=== PATIENT | male | born 1975 | race Caucasian/White ===

== ENCOUNTER 2023-07-03 17:49 | Emergency (ER) | payer OTHER, SELFPAY ==
--- OUTSIDE RECORDS SUMMARY | 2023-07-03 18:00 | XMS_ITS | CCD ---
Author Name Unknown Address [address] [place] [address] Organization [facility] Care Team Providers Care Storage Management Consultant Name Role Phone Gabe Rebolledoa F Unavailable Unavailable Amaury Maddy F Unavailable Unavailable MILLER BUNN~[phone] UNKNOWN Unavailable U navailable Miller Bazan Unavailable Unavailable MILLER BUNN~[phone] UNKNOWN Unavailable U navailable MISC, DOCTOR Primary Care Unavailable JHON LIND Admitting Unavailable JHON LIND Attending Unavailable MILLER BUNN Consulting Unavailable HOLLI BIANCHI V Consulting Unavailable SUNI DUENAS Consulting Unavailable MISC, DOCTOR Primary Care Unavailable ALEXX KAY Admitting Unavailable ALEXX KAY Attending Unavailable JANY NOBLES Consulting Unavailable ALEXX KAY Consulting Unavailable MONSTER ANGEL Consulting Unavailable Miller Bunn Primary Care Provider UnavailUmang Gunn Attending Provider Unavailable Misbah Donahue Primary Care Provider UnavailPaulie Casarez Unavailable Sam Sheriff Unavailable Wallace Corbin DO Primary Care Provider DO Paulie Boo Primary Care Provider DO Paulie Boo Attending Provider DO Wallace Corbin Primary Care Provider NICOLE Schulte- Rody Hinkle Emergency Provider Wallace Corbin DO Primary Care Provider Azul Langford Unavailable Wallace Corbin Unavailable Unavailable Tyler Martinez Unavailable Unavailable Martinez, DO Tyler Attending Unavailable Luana, DO Wallace N Primary Care Provider MD Sam Mccoy Jr Emergency Provider Safmyronarin MENTAL HEALTH NURSE PRACTITIONERNara Bains Emergency Provider Luana DO, Wallace Primary Care Provider [phone] Luana, DO Wallace N Primary Care Provider MD Sam Mccoy Jr Emergency Provider Sam Mccoy Jr Admitting Unavailable Sam Mccoy Jr Attending Unavailable Luana, Wallace N Primary Care Unavailable Sam Mccoy Jr Admitting Unavailable Sam Mccoy Jr Attending Unavailable Luana, Wallace N Primary Care Unavailable Ana Maria Loera Admitting Unavailable SafmyroneAna Maria Attending Unavailable Luana, Wallace N Primary Care Unavailable LUANA, WALLACE Primary Care Unavailable FARA LÓPEZ Consulting Unavailable YAMILEX ADKINS Attending Unavailable YAMILEX ADKINS Admitting Unavailable LÓPEZ CHRISTNERY Sales Admitting Unavailable LÓPEZ, FARA A Attending Unavailable LUANA, WALLACE Primary Care Unavailable LÓPEZ, CHRISTOPHER A Admitting Unavailable LÓPEZ, CHRISTSYBILER A Attending Unavailable LUANA, WALLACE Primary Care Unavailable LÓPEZ, CHRISTNERY A Attending Unavailable LÓPEZ, CHRISTOPHER A Referring Unavailable LUANA, WALLACE Primary Care Unavailable GIORGIOETIMADDISON Referring Unavailable LUANA, WALLACE Primary Care Unavailable MADDISON VELEZ Referring Unavailable LUANA, WALLACE Primary Care Unavailable KARETIMADDISON Referring Unavailable LUANA, WALLACE Primary Care Unavailable LUANA, WALLACE Primary Care Unavailable LAURA COOK Attending Unavailable IRENA MILIAN Attending Unavailable LUANA, WALLACE Primary Care Unavailable IRENA MILIAN Attending Unavailable LUANA, WALLACE Primary Care Unavailable Unavailable Unavailable Unavailable Allergies Allergy Classification Reported Allergen(s) Allergy Type Date of Onset Reaction(s) Facility (14 sources) HYDROmorphone; Translations: [hydromorphone] Drug Allergy Headache [facility] (1 source) Morphine Drug Allergy 01-31-2023 [facility] Repository Medications Current Medications Medication Drug Class(es) Dates Sig (Normalized) Sig (Original) acetaminophen 325 mg / oxyCODONE hydrochloride 5 mg oral tablet (20 sources) Opioid Agonist Start: 02-01-2023 take 1 tablet by mouth every six hours Oxycodone-Acetami nophen (Percocet) 5-325 mg tablet Active 1 - 2 TAB PO Every 6 hours 15 February 01, 2023 Start: 11-02-2022 End: 02-01-2023 take 1 tablet by mouth three times daily Oxycodone-Acetaminophen (Percocet) 5-325 mg tablet Discontinued 1 TAB PO Three times daily 6 November 02, 2022 February 01, 2023 4:11am Start: 07-04-2021 End: 02-01-2023 oxyCODONE-acetaminophen (PER COCET) 5-325 MG per tablet Indications: Left ureteral stone Take 1 tablet by mouth every 6 hours as needed for Pain for up to 3 days. Intended supply: 3 days. Take lowest dose possible to manage pain Max Daily Amount: 4 tablets 12 tablet 0 11/06/2022 11/09/2022 Suspended Start: 04-18-2021 take 1 tablet by julio th every four hours as needed for pain Percocet 5-325 MG 1 tablet as needed for pain Orally up to every 4 hrs for 5 days Mar, Active Start: 03-28-2020 End: 07-04-2021 take 2 tablets by mouth every four to six hours Oxycodone-Acetaminophen (Percocet) 5-325 mg tablet Discontinued 2 TAB PO EVERY 4-6 HOURS 17 07March 28, 2020 July 04, 2021 2:58am Start: 12-31-2018 End: 05-20-2019 take 1 tablet by mouth twice daily Oxycodone-Acetaminophen (Percocet) 5-325 mg Tablet Discontinued 1 TAB PO Twice daily December 31, 2018 12:00am May 20, 2019 2:48pm [id number] 200 actuat albuterol 0.09 mg/actuat metered dose inhaler (5 sources) beta2-Adrenergic Agonist Start: 03-27-2022 take 2 puff(s) by inhalation four times daily as needed Albuterol Sulfate HFA 108 (90 Base) MCG/ACT 2 puffs Inhalation 4 times a day prn Feb, Active Start: 01-14-2019 End: 05-21-2019 take 1 puff(s) by inhalation every four hours Albuterol Sulfate (Proair Hfa) 90 mcg/actuation Hfa Aerosol Inhaler Discontinued 2 PUFF INHALATION Q4H January 14, 2019 12:00am May 21, 2019 11:58am amoxicillin 500 mg oral capsule (1 source) Penicillin-class Antibacterial Start: 03-27-2022 take 1 capsule by mouth every eight hours Amoxicillin 500 MG 1 capsule Orally three times a day for 10 day(s) Feb, Active calcium chloride 0.0014 meq/ml / potassium chloride 0.004 meq/ml / sodium chloride 0.103 meq/ml / sodium lactate 0.028 meq/ml injectable solution (1 source) Start: 11-09-2022 IntraVENous, at 125 mL/hr, CONTINUOUS, Starting on Bridget 11/09/22 at 1445, PACU only cephalexin 500 mg oral capsule (6 sources) Cephalosporin Antibacterial Start: 12-29-2021 cephALEXin (KEFLEX) 500 MG capsule Start: 12-29-2021 End: 10-30-2022 take 500 mg by mouth four times daily Cephalexin Discontinued 500 MG PO Four times daily 24 11December 29, 2021 12:00am October 30, 2022 5:38am Start: 04-18-2021 take [address] [facility] every eight hours Cephalexin 500 MG 1 capsule Orally every 8 hrs for 2 days Mar, Active cyclobenzaprine hydrochloride 5 mg oral tablet (9 sources) Muscle Relaxant Start: 02-01-2023 take 5 mg by mouth three times daily Cyclobenzaprine Active 5 MG PO Three times daily February 01, 2023 12:00am Start: 09-14-2018 End: 11-22-2018 take 10 mg by mouth three times daily Cyclobenzaprine Discontinued 10 MG PO Three times daily September 14, 2018 12:00am November 22, 2018 11:08pm Start: 04-19-2017 End: 05-14-2018 Cyclobenzaprine Discontinued 10 MG PO every 6 to 8 hours April 19, 2017 1:00am May 14, 2018 1:02pm 1 ml diphenhydrAMINE hydrochloride 50 mg/ml cartridge (1 source) Histamine-1 Receptor Antagonist Start: 11-09-2022 End: 11-10-2022 12.5 mg, IntraVENous, ONCE PRN, 1 dose, Starting on Bridget 11/09/22 at 1425, Until Sun11/10/22 at 1425, Itching, PACU only 2 ml droperidol 2.5 mg/ml injection (1 source) Dopamine-2 Receptor Antagonist Start: 11-09-2022 End: 11-10-2022 0.625 mg, IntraVENous, ONCE PRN, 1 dose, Starting on Bridget 11/09/22 at 1425, Until Sun11/10/22 at 1425, Nausea Secondary antiemetic therapy. PACU only DULoxetine 30 mg delayed release oral capsule (15 sources) Serotonin and Norepinephrine Reuptake Inhibitor Start: 12-31-2018 take 60 mg by mouth once daily Duloxetine Active 60 MG Oral Daily December 31, 2018 10:21am Start: 12-31-2018 End: 12-21-2019 take 2 capsules by mouth once daily Duloxetine (Cymbalta) 30 mg Capsule,Delayed Release(Dr/Ec) Discontinued 60 MG PO Daily December 31, 2018 12:00am December 21, 2019 9:42am Start: 07-31-2018 End: 11-22-2018 take 30 mg by mouth once daily Duloxetine Discontinued 30 MG PO Daily July 31, 2018 12:00am November 22, 2018 11:08pm Start: 05-14-2018 End: 07-31-2018 take 60 mg by mouth once daily Duloxetine Discontinued 60 MG PO Daily May 14, 2018 1:00am July 31, 2018 10:15am escitalopram 10 mg oral tablet (1 source) Serotonin Reuptake Inhibitor Start: 09-07-2021 take 1 tablet by mouth every twenty-four hours Escitalopram Oxalate 10 MG 1 tablet Orally Once a day for 30 day(s) August, Active ibuprofen 600 mg oral tablet (20 sources) Nonsteroidal Anti-inflammatory Drug Start: 10-30-2022 End: 02-01-2023 take 600 mg by mouth every eight hours Ibuprofen Active 600 MG PO Q8H February 01, 2023 12:00am Start: 12-29-2021 End: 10-30-2022 take 800 mg by mouth every eight hours Ibuprofen Discontinued 800 MG PO Q8H December 29, 2021 9:03am October 30, 2022 5:38am Start: 07-04-2021 End: 12-29-2021 take 600 mg by mouth every eight hours Ibuprofen Discontinued 600 MG PO Q8H July 04, 2021 1:00am December 29, 2021 9:03am take 1 tablet by julio three times daily at mealtime as needed Ibuprofen 200 MG 1 tablet with food or milk as needed Orally Three times a day Active lidocaine hydrochloride 0.02 mg/mg topical gel (5 sources) Antiarrhythmic, Amide Local Anesthetic Start: 11-09-2022 lidocaine (XYLOCAINE) 2 % uro-jet Start: 09-14-2018 End: 11-22-2018 apply 1 dose topically once daily Lidocaine (Lidoderm) 5 % adhesive patch,medicated Discontinued 1 PATCH TOPICAL Daily September 14, 2018 12:00am November 22, 2018 11:08pm leave on most painful area for 12 hrs oxyCODONE hydrochloride 5 mg oral capsule (20 sources) Opioid Agonist Start: 11-09-2022 End: 11-09-2022 oxyCODONE capsule 5 mg Start: 07-31-2018 End: 12-31-2018 take 5 mg by mouth twice daily Oxycodone Discontinued 5 MG PO Twice daily July 31, 2018 12:00am December 31, 2018 10:22am Start: 05-17-2018 End: 05-24-2018 take 5 mg by mouth every four hours Oxycodone Discontinued 5 MG PO Q4H 21 11May 17, 2018 May 24, 2018 1:02am Start: 03-13-2017 End: 07-31-2018 take 15 mg by mouth once daily Oxycodone Discontinued 15 MG PO Daily March 13, 2017 1:00am July 31, 2018 10:15am take 1 tablet by [facility] every six hours oxyCODONE HCl 5 MG 1 tablet as needed Orally every 6 hrs Active phenazopyridine hydrochlorid e 200 mg delayed release oral tablet (9 sources) Start: 12-29-2021 phenazopyridin e (PYRIDIUM) 200 MG tablet Start: 12-29-2021 End: 10-30-2022 take 200 mg by mouth three times daily at mealtime Phenazopyridine Discontinued 200 MG PO Three times daily 01 30December 29, 2021 12:00am October 30, 2022 5:38am administer with a full glass of water after each meal Start: 05-17-2018 End: 05-19-2018 take 1 tablet by mouth every four hours for muscle spasms Phenazopyridine (Pyridium) 100 mg tablet Discontinued 100 MG PO Q8H 7 2 May 17, 2018 1:00am May 19, 2018 1:02am Use for bladder spasms after meals times 2 days. May cause discoloration of your urine to reddish orange predniSONE 20 mg oral tablet (5 sources) Start: 03-27-2022 take 1 tablet by mouth every twelve hours predniSONE 20 MG 1 tablet Orally 2 times a day for 5 day(s) Feb, Active Start: 04-19-2017 End: 04-24-2017 take 60 mg by mouth once daily at mealtime Prednisone Discontinued 60 MG PO Daily 15 April 19, 2017 1:00am April 24, 2017 1:03am administer with food or milk 2 ml prochlorperazine 5 mg/ml injection (1 source) Phenothiazine Start: 11-09-2022 End: 11-10-2022 5 mg, IntraVENous, ONCE PRN, 1 dose, Starting on Bridget 11/09/22 at 1425, Until Sun11/10/22 at 1425, Nausea Initial antiemetic therapy. PACU only 5 ml sodium chloride 9 mg/ml injection (15 sources) Start: 11-09-2022 take 1 dose intravenously twice daily 5-40 mL, IntraVENous, EVERY 12 HOURS SCHEDULED (2 times per day), First dose on Bridget 11/09/22 at 2100, Until Discontinued For Line Patency: Peripheral IV = 5 mL; Midline or Central Line = 10 mL/lumen.&nbs p; If following IV push medication, administer flush at same rate as the IV push. Flush volume is determined by type of infusion therapy being given. &nbsp ;For non-viscous solutions use: Periphe ral IV = 5 mL Midline or Central Line = 10 mL/lumen &nb sp;For viscous solutions (i.e. blood components, parenteral nutrition, contrast media, or after obtaining blood sample) use: Periphe ral IV = 10 mL Midline or Central Line = 20 mL/lumen PACU only Start: 11-09-2022 take 1 dose intraven ously twice daily 5-40 mL, IntraVENous, EVERY 12 HOURS SCHEDULED (2 times per day), First dose on Bridget 11/09/22 at 2100, Until Discontinued For Line Patency: Peripheral IV = 5 mL; Midline or Central Line = 10 mL/lumen. If following IV push medication, administer flush at same rate as the IV push. Flush volume is determined by type of infusion therapy being given. For non-viscous solutions use: Peripheral IV = 5 mL Midline or Central Line = 10 mL/lumen For viscous solutions (i.e. blood components, parenteral nutrition, contrast media, or after obtaining blood sample) use: Peripheral IV = 10 mL Midline or Central Line = 20 mL/lumen Post-op Start: 11-09-2022 sodium chlorid e flush 0.9 % injection 5-40 mL Start: 11-09-2022 IntraVENous, a t 5-250 mL/hr, PRN, if patient receiving piggyback infusions and maintenance fluids are not ordered OR KVO fluids to protect IV site / prevent frequent line interruptions/ long duration, Starting on Bridget 11/09/22 at 1426 For piggyback infusion, administer at same rate as piggyback for a total of 25 mL. Enter 25 mL into dose field and piggyback rate into rate field of order. If piggyback is infusing at a rate less than 100 mL/hr, enter 25 mL into dose field and 100 mL/hr into rate field of order. For KVO fluids, enter rate of 20 mL/hr or less into rate field of order. Post-op Start: 11-09-2022 take 5-40 mL intrave nously once as needed 5-40 mL, IntraVENous, PRN, Starting on Bridget 11/09/22 at 1426, Until Discontinued, Line Care, After every IV line use For Line Patency: Peripheral IV = 5 mL; Midline or Central Line = 10 mL/lumen. If following IV push medication, administer flush at same rate as the IV push. Flush volume is determined by type of infusion therapy being given. For non-viscous solutions use: Peripheral IV = 5 mL Midline or Central Line = 10 mL/lumen For viscous solutions (i.e. blood components, parenteral nutrition, contrast media, or after obtaining blood sample) use: Peripheral IV = 10 mL Midline or Central Line = 20 mL/lumen Post-op Start: 11-09-2022 0.9 % sodium c hloride infusion Start: 11-09-2022 sodium chlorid e flush 0.9 % injection 5-40 mL Start: 02-01-2022 take 1 dose intraven ously twice daily 5-40 mL, IntraVENous, EVERY 12 HOURS SCHEDULED (2 times per day), First dose on Sun02/01/22 at 2100, Until Discontinued For Line Patency: Peripheral IV = 5 mL; Midline or Central Line = 10 mL/lumen. If following IV push medication, administer flush at same rate as the IV push. Flush volume is determined by type of infusion therapy being given. For non-viscous solutions use: Peripheral IV = 5 mL Midline or Central Line = 10 mL/lumen For viscous solutions (i.e. blood components, parenteral nutrition, contrast media, or after obtaining blood sample) use: Peripheral IV = 10 mL Midline or Central Line = 20 mL/lumen PACU only Start: 02-01-2022 IntraVENous, a t 5-250 mL/hr, PRN, if patient receiving piggyback infusions and maintenance fluids are not ordered OR KVO fluids to protect IV site / prevent frequent line interruptions/ long duration, Starting on Sun02/01/22 at 1156 For piggyback infusion, administer at same rate as piggyback for a total of 25 mL. Enter 25 mL into dose field and piggyback rate into rate field of order. If piggyback is infusing at a rate less than 100 mL/hr, enter 25 mL into dose field and 100 mL/hr into rate field of order. For KVO fluids, enter rate of 20 mL/hr or less into rate field of order. PACU only Start: 02-01-2022 take 5-40 mL intrave nously once as needed 5-40 mL, IntraVENous, PRN, Starting on Sun02/01/22 at 1156, Until Discontinued, Line Care, After every IV line use For Line Patency: Peripheral IV = 5 mL; Midline or Central Line = 10 mL/lumen. If following IV push medication, administer flush at same rate as the IV push. Flush volume is determined by type of infusion therapy being given. For non-viscous solutions use: Peripheral IV = 5 mL Midline or Central Line = 10 mL/lumen For viscous solutions (i.e. blood components, parenteral nutrition, contrast media, or after obtaining blood sample) use: Peripheral IV = 10 mL Midline or Central Line = 20 mL/lumen PACU only Start: 02-01-2022 0.9 % sodium c hloride infusion Start: 02-01-2022 End: 02-01-2022 sodium chloride 0.9 % infusi on Start: 12-30-2021 End: 12-30-2021 0.9 % sodium chloride bolus tamsulosin hydrochloride 0.4 mg oral capsule (8 sources) alpha-Adrenergic Mac Start: 10-07-2022 Tamsu losin (Flomax) 0.4 mg capsule Active 0.4 MG PO Daily October 30, 2022 12:00am administer 30 minutes after same meal each day While you have the stent in place to help with pain Start: 07-04-2021 End: 12-29-2021 Tamsulosin (Flomax) 0.4 mg c apsule,extended release 24hr Discontinued 0.4 MG PO Daily July 04, 2021 1:00am December 29, 2021 9:03am administer 30 minutes after same meal each day until stone passes water 1000 mg/ml irrigation solution (1 source) Start: 11-09-2022 sterile water for irrigation Completed/Discontinued Medications Medication Drug Class(es) Dates Sig (Normalized) Sig (Original) acetaminophen 325 mg oral tablet (16 sources) Start: 05-16-2018 End: 07-03-2018 take 650 mg by mouth every six hours Acetaminophen Discontinued 650 MG PO Q6H 0 May 16, 2018 1:00am July 03, 2018 10:31am take 2 tablets by mo uth three times daily as needed for pain acetaminophen (TYLENOL) 500 MG tablet Ta ke 2 tablets by mouth 3 times daily as needed for Pain 0 Suspended take 1 tablet by mouth every fou r hours Tylenol 325 MG 1 tablet as needed Orally every 4 hrs Active 12 hr buPROPion hydrochloride 100 mg extended release oral tablet (12 sources) Aminoketone Start: 03-10-2019 End: 05-20-2019 take 1 tablet by mouth once daily Bupropion Hcl (Wellbutrin Sr) 100 mg Tablet Sustained-Release 12 Hr Discontinued 1 TAB PO Daily March 10, 2019 1:00am May 20, 2019 2:44pm Start: 11-22-2018 End: 12-31-2018 take 200 mg by mouth twice daily Bupropion Hcl Discontinued 200 MG PO Twice daily November 22, 2018 12:00am December 31, 2018 10:22am Start: 03-13-2017 End: 05-14-2018 take 1 tablet by mouth twice daily Bupropion Hcl (Wellbutrin Sr) 150 mg Tablet Extended Release 12 Hr Discontinued 150 MG PO Twice daily March 13, 2017 1:00am May 14, 2018 1:01pm cefdinir 300 mg oral capsule (4 sources) Cephalosporin Antibacterial Start: 05-16-2018 End: 05-21-2018 take 300 mg by mouth twice daily Cefdinir Discontinued 300 MG PO Twice daily 10 May 16, 2018 1:00am May 21, 2018 1:02am dextromethorphan hydrobromide 15 mg / guaiFENesin 400 mg / pseudoephedrine hydrochloride 60 mg oral tablet (4 sources) alpha-Adrenergic Agonist, Uncompetitive N-skvats-Z-asparta te Receptor Antagonist, Sigma-1 Agonist Start: 01-14-2019 End: 05-20-2019 Aotlhkygofcmwrs-Sg-U uaifenesin (Capmist Dm) 60-15-400 mg Tablet Discontinued 1 TAB PO As Directed January 14, 2019 12:00am May 20, 2019 2:48pm diclofenac sodium 75 mg delayed release oral tablet (7 sources) Nonsteroidal Anti-inflammatory Drug Start: 05-20-2019 End: 12-21-2019 take 1 tablet by mouth twice daily Diclofenac Sodium Discontinued 1 TAB PO Twice daily May 20, 2019 1:00am December 21, 2019 9:42am 1 ml fentaNYL 0.05 mg/ml injection (1 source) Opioid Agonist Start: 11-09-2022 50 mcg, IntraVENous, EVERY 5 MIN PRN, 4 doses, Starting on Bridget 11/09/22 at 1425, Until Discontinued, Pain Moderate (4-6) For Phase I. If Phase II oral narcotics have been administered in the last 60 minutes, do not administer IV narcotics unless specifically approved by provider. PACU only FLUoxetine 10 mg oral capsule (4 sources) Serotonin Reuptake Inhibitor Start: 01-14-2019 End: 05-20-2019 take 1 capsule by mouth once daily Fluoxetine Discontinued 1 CAP PO Daily January 14, 2019 12:00am May 20, 2019 2:47pm 1 ml hydrALAZINE hydrochloride 20 mg/ml injection (1 source) Arteriolar Vasodilator Start: 11-09-2022 10 mg, IntraVENous, EVERY 15 MIN PRN, 2 doses, Starting on Bridget 7 at 1425, Until Discontinued, High Blood Pressure, for SBP greater than 180 mmHg for 2 consecutive measurements taken from different sites Inform provider if SBP is still greater than 180 mmHg 10 minutes after second antihypertensive dose is administered. PACU only 0.5 ml HYDROmorphone hydrochloride 1 mg/ml prefilled syringe (2 sources) Opioid Agonist Start: 11-09-2022 0.5 mg, IntraVENous, EVERY 10 MIN PRN, 2 doses, Starting on Bridget 7 at 1425, Until Discontinued, Pain Severe (7-10) For Phase I. If Phase II oral narcotics have been administered in the last 60 minutes, do not administer IV narcotics unless specifically approved by provider. PACU only Start: 12-30-2021 End: 12-30-2021 HYDROmorphone (DILAUDID) inj ection 1 mg hyoscyamine sulfate 0.125 mg oral tablet (4 sources) Start: 01-14-2019 End: 05-20-2019 Hyoscyamine Sulfate Discontinued 1 TAB SUBLINGUAL As Directed January 14, 2019 12:00am May 20, 2019 2:47pm iopamidol (ISOVUE-300) 61 % injection 50 mL (1 source) Start: 12-30-2021 End: 12-30-2021 iopamidol (ISOVUE-300) 61 % injection 50 mL levoFLOXacin 500 mg oral tablet (4 sources) Quinolone Antimicrobial Start: 11-06-2022 End: 11-13-2022 take 1 tablet by mouth once daily levoFLOXacin (LEVAQUIN) 500 MG tablet Take 1 tablet by mouth daily for 7 days 5 tablet 0 11/06/2022 11/13/2022 Suspended Start: 10-30-2022 End: 02-01-2023 take 750 mg by mouth once daily Levofloxacin Discontinued 750 MG PO Daily 7 7 October 30, 2022 12:00am February 01, 2023 4:11am meloxicam 15 mg oral tablet (4 sources) Nonsteroidal Anti-inflammatory Drug Start: 09-10-2018 End: 11-22-2018 take 15 mg by mouth once daily Meloxicam Discontinued 15 MG PO Daily September 10, 2018 12:00am November 22, 2018 11:08pm 1 ml meperidine hydrochloride 25 mg/ml cartridge (1 source) Opioid Agonist Start: 11-09-2022 12.5 mg, IntraVENous, EVERY 5 MIN PRN, 4 doses, Starting on Bridget 11/09/22 at 1425, Until Discontinued, Shivering, May give every 5 minutes to max of 50mg. PACU only 1 ml morphine sulfate 4 mg/ml injection (1 source) Opioid Agonist Start: 12-30-2021 End: 12-30-2021 morphine sulfate (PF) injection 4 mg naproxen 500 mg oral tablet (4 sources) Nonsteroidal Anti-inflammatory Drug Start: 09-14-2018 End: 11-22-2018 take 1 tablet by mouth twice daily Naproxen (Naprosyn) 500 mg tablet Discontinued 500 MG PO Twice daily September 14, 2018 12:00am November 22, 2018 11:08pm NEEDLE, DISP, 23 G (BD DISP NEEDLE) 23G X 1 MISC (1 source) Start: 10-24-2022 NEEDLE, DISP, 23 G (BD DISP NEEDLE) 23G X 1 MISC Indications: Low testosterone Use for testosterone injections 2 each 2 10/24/2022 Suspended omeprazole 20 mg oral tablet (4 sources) Proton Pump Inhibitor Start: 11-23-2018 End: 05-20-2019 take 20 mg by mouth once daily Omeprazole Discontinued 20 MG PO Daily 60 56 November 23, 2018 12:00am May 20, 2019 2:48pm ondansetron 4 mg disintegrating oral tablet (20 sources) Serotonin-3 Receptor Antagonist Start: 12-30-2021 End: 12-30-2021 ondansetron (ZOFRAN) injection 4 mg Start: 03-28-2020 End: 07-04-2021 take 8 mg by mouth every eight hours Ondansetron Discontinued 8 MG PO Q8H 01 31March 28, 2020 1:00am July 04, 2021 2:58am Start: 12-21-2019 End: 02-01-2023 take 4 mg by mouth every eight hours Ondansetron Discontinued 4 MG PO Q8H October 30, 2022 12:00am February 01, 2023 4:11am take 1 tablet by julio th every eight hours as needed for nausea ondansetron (ZOFRAN) 4 MG tablet Take 4 mg by mouth every 8 hours as needed for Nausea or Vomiting 0 Active 24 hr oxybutynin chloride 5 mg extended release oral tablet (3 sources) Cholinergic Muscarinic Antagonist Start: 11-06-2022 take 1 tablet by mouth once daily oxybutynin (DITROPAN XL) 5 MG extended release tablet Take 1 tablet by mouth daily 5 tablet 0 11/06/2022 Suspended Start: 11-02-2022 take 5 mg by mouth twice daily Oxybutynin Chloride Active 5 MG PO Twice daily November 02, 2022 12:00am phentermine hydrochloride 37.5 mg oral tablet (2 sources) Sympathomimetic Amine Anorectic Start: 10-24-2022 End: 01-22-2023 take 1 tablet by mouth once daily before breakfast phentermine (ADIPEX-P) 37.5 MG tablet Indications: Class 1 obesity with serious comorbidity and body mass index (BMI) of 34.0 to 34.9 in adult, unspecified obesity type , Obstructive sleep apnea Take 1 tablet by mouth every morning (before breakfast) for 90 days. Max Daily Amount: 37.5 mg 30 tablet 2 10/24/2022 01/22/2023 Suspended take 1 tablet by julio th every twenty-four hours Adipex-P 37.5 MG 1 tablet Orally Once a day Active promethazine hydrochloride 25 mg oral tablet (4 sources) Phenothiazine Start: 03-13-2017 End: 05-14-2018 take 25 mg by mouth every four to six hours Promethazine Discontinued 25 MG PO EVERY 4-6 HOURS March 13, 2017 1:00am May 14, 2018 1:02pm sucralfate 1000 mg oral tablet (4 sources) Aluminum Complex Start: 12-21-2019 End: 07-04-2021 take 1 tablet by mouth at bedtime Sucralfate (Carafate) 1 gram tablet Discontinued 1 GM PO before meals and at bedtime 60 December 21, 2019 12:00am July 04, 2021 2:58am 1 ml testosterone cypionate 200 mg/ml injection (17 sources) Androgen Start: 10-24-2022 End: 03-21-2023 inject 1 mL by intramuscular injection every other week testosterone cypionate (DEPOTESTOTERONE CYPIONATE) 200 MG/ML injection Indications: Low testosterone INJECT 1ML INTRAMUSCULAR EVERY TWO WEEKS 2 mL 2 10/24/2022 03/21/2023 Suspended Start: 12-29-2021 inject 200 mg by int ramuscular injection every other week Testosterone Cypionate Active 200 MG IM December 29, 2021 12:00am every 2 weeks Start: 12-14-2021 inject 1 mL by intra muscular injection every other week testosterone cypionate (DEPOTESTOTERONE CYPIONATE) 200 MG/ML injection INJECT 1ML INTRAMUSCULAR EVERY TWO WEEKS 0 12/14/2021 Active Start: 10-19-2021 inject 1 mL by intra muscular injection every other week Testosterone Cypionate 200 MG/ML 1 ml Intramuscular every 2 weeks for 90 day(s) Sep, Active Start: 05-20-2019 End: 12-21-2019 apply 1 dose topically once daily Testosterone Discont inued 1 DOSE TOPICAL Daily May 20, 2019 1:00am December 21, 2019 9:42am inject 1 mL by intra muscular injection every month Testosterone Cypionate 200 MG/ML 1 ml Intramuscular monthly Active 24 hr topiramate 50 mg extended release oral capsule (15 sources) Start: 01-14-2019 End: 12-21-2019 take 1 capsule by mouth every twenty-four hours Topiramate (Trokendi Xr) 50 mg capsule,extended release 24hr Discontinued 1 TAB PO As Directed January 14, 2019 12:00am December 21, 2019 9:42am Start: 05-14-2018 End: 09-14-2018 take 1 capsule by mouth once daily Topiramate (Trokendi Xr) 50 mg capsule,extended release 24hr Discontinued 50 MG PO Daily July 31, 2018 12:00am September 14, 2018 6:11pm Triamcinolone (9 sources) Corticosteroid Start: 02-01-2021 Kenalog -40 mg Jan, 40 mg Start: 03-17-2019 Kenalog -40 mg Feb, 60 mg Start: 03-30-2014 KENALOG - 10 m g Mar, 40 mg Problems Active Problems Problem Classification Problem Date Documented Date Episodic/Chronic Administrative/socia l admission (7 sources) Worried well; Translations: [Person with feared health complaint in whom no diagnosis is made] 11-23-2018 Episodic Anxiety disorders (17 sources) Generalized anxiety disorder; Translations: [Generalized anxiety disorder] Onset: 09-24-2008 03-14-2022 Chronic Chronic obstructive pulmonary disease and bronchiectasis (1 source) Bronchitis, not specified as acute or chronic Episodic Conditions associated with dizziness or vertigo (1 source) Benign paroxysmal vertigo, unspecified ear; Translations: [Benign paroxysmal vertigo, unspecified ear] Onset: 03-31-2023 Episodic Esophageal disorders (1 source) Gastroesophageal reflux disease; Translations: [Gastro-esophageal reflux disease without esophagitis] Onset: 03-14-2022 03-14-2022 Chronic Essential hypertension (9 sources) Essential (primary) hypertension; Translations: [Essential hypertension] Onset: 09-24-2008 Chronic Gastritis and duodenitis (4 sources) Acute duodenitis; Translations: [Duodenitis without bleeding] 11-23-2018 Episodic Gastritis and duodenitis (3 sources) Acute duodenitis; Translations: [Duodenitis without hemorrhage] Genitourinary symptoms and ill-defined conditions (3 sources) Presence of urogenital implants; Translations: [Ureteral stent present] 10-30-2022 Chronic Genitourinary symptoms and ill-defined conditions (3 sources) Pyuria; Translations: [Pyuria] 10-30-2022 Episodic Genitourinary symptoms and ill-defined conditions (1 source) Other microscopic hematuria; Translations: [OTHER MICROSCOPIC HEMATURIA] Onset: 12-31-2018 Headache; including migraine (20 sources) Migraine with aura; Translations: [Migraine with aura, not intractable, without status migrainosus] Chronic Headache; including migraine (7 sources) Headache; Translations: [Headache] 04-19-2017 Episodic Malaise and fatigue (1 source) Weakness; Translations: [Weakness] Onset: 05-18-2022 Episodic Mood disorders (6 sources) Major depressive disorder; Translations: [Major depressive disorder, single episode, unspecified] Onset: 09-07-2021 Resolved: 10-19-2021 Chronic Nausea and vomiting (11 sources) Nausea; Translations: [Nausea and vomiting] 12-21-2019 Episodic Other connective tissue disease (11 sources) Foot pain; Translations: [Pain in unspecified foot] Episodic Other connective tissue disease (1 source) Nerve root disorder; Translations: [Neuralgia, neuritis, and radiculitis, unspecified] 05-18-2022 Episodic Other connective tissue disease (1 source) Pain in left leg; Translations: [Pain in left leg] Onset: 05-18-2022 Episodic Other diseases of bladder and urethra (2 sources) Spasm of bladder; Translations: [Other specified disorders of bladder] 11-02-2022 Chronic Other diseases of bladder and urethra (1 source) Other specified disorders of bladder; Translations: [Other specified disorders of bladder] Onset: 11-02-2022 Chronic Other diseases of kidney and ureters (5 sources) Hydronephrosis; Translations: [Hydronephrosis with renal and ureteral calculous obstruction] Onset: 10-07-2022 05-15-2018 Episodic Other diseases of kidney and ureters (3 sources) Hydronephrosis with renal and ureteral calculous obstruction; Translations: [Hydronephrosis with urinary obstruction due to renal calculus] 05-15-2018 Episodic Other nervous system disorders (20 sources) Chronic pain; Translations: [Other chronic pain] Chronic Other nutritional; endocrine; and metabolic disorders (1 source) Obesity, unspecified; Translations: [OBESITY UNSPECIFIED] Onset: 01-03-2019 Chronic Other nutritional; endocrine; and metabolic disorders (1 source) Body mass index (BMI) 37.0-37.9, adult; Translations: [BODY MASS INDEX BMI 37.0-37.9 ADULT] Onset: 01-03-2019 Chronic Other nutritional; endocrine; and metabolic disorders (3 sources) Severe obesity; Translations: [Morbid (severe) obesity due to excess calories] Chronic Other nutritional; endocrine; and metabolic disorders (3 sources) Body mass index 40+ - severely obese; Translations: [Body mass index (BMI) 40.0-44.9, adult] Chronic Other nutritional; endocrine; and metabolic disorders (1 source) Morbid (severe) obesity due to excess calories Onset: 09-07-2021 Resolved: 09-07-2021 Chronic Other nutritional; endocrine; and metabolic disorders (1 source) Body mass index (BMI) 40.0-44.9, adult Onset: 09-07-2021 Resolved: 09-07-2021 Chronic Otitis media and related conditions (1 source) Otitis media, unspecified, bilateral Episodic Paralysis (1 source) Paralysis 05-18-2022 Chronic Comment on above: PARALYSIS Residual codes; unclassified (12 sources) Obstructive sleep apnea syndrome; Translations: [Obstructive sleep apnea (adult) (pediatric)] Onset: 03-14-2022 03-14-2022 Chronic Residual codes; unclassified (2 sources) Other specified postprocedural states; Translations: [Other specified postprocedural states] Onset: 04-18-2021 Resolved: 04-18-2021 Episodic Spondylosis; intervertebral disc disorders; other back problems (20 sources) Lumbosacral spondylosis; Translations: [Spondylosis without myelopathy or radiculopathy, lumbosacral region] Onset: 11-01-2022 11-01-2022 Chronic Spondylosis; intervertebral disc disorders; other back problems (20 sources) Neck pain; Translations: [Sacroiliac joint pain] Onset: 03-14-2022 04-19-2017 Episodic Comment on above: BACK PAIN Sprains and strains (20 sources) Strain of neck muscle; Translations: [Strain of muscle, fascia and tendon at neck level, initial encounter] Onset: 01-25-2021 Resolved: 03-28-2021 Episodic Unclassified (1 source) Radiculopathy 05-18-2022 Unclassified (1 source) Low back pain, unspecified; Translations: [Low back pain, unspecified] Onset: 05-18-2022 Unclassified (1 source) Low back pain, unspecified; Translations: [Low back pain, unspecified] Onset: 02-01-2023 Unclassified (1 source) Frequency of micturition; Translations: [Frequency of micturition] Onset: 11-02-2022 Urinary tract infections (4 sources) Cystitis; Translations: [Cystitis, unspecified without hematuria] 12-29-2021 Episodic Past or Other Problems Problem Classification Problem Date Documented Da te Episodic/Chronic Abdominal pain (20 sources) Unspecified abdominal pain; Translations: [Left flank pain] Onset: 12-31-2018 Episodic Calculus of urinary tract (20 sources) Calculus of ureter; Translations: [Personal history of urinary calculi] Onset: 05-14-2018 05-14-2018 Episodic Diabetes mellitus without complication (8 sources) Abnormal glucose level; Translations: [Other abnormal glucose] Onset: 11-15-2010 Episodic Other aftercare (2 sources) Encounter for therapeutic drug level monitoring Onset: 09-07-2021 Resolved: 10-19-2021 Episodic Other diseases of kidney and ureters (2 sources) Unspecified hydronephrosis; Translations: [Unspecified hydronephrosis] Onset: 10-06-2022 Episodic Other nutritional; endocrine; and metabolic disorders (8 sources) Abnormal weight gain; Translations: [Abnormal weight gain] Onset: 11-15-2010 Episodic Other screening for suspected conditions (not mental disorders or infectious disease) (6 sources) Other specified abnormal findings of blood chemistry; Translations: [Patient encounter status] Onset: 09-07-2021 Resolved: 03-03-2022 Episodic Residual codes; unclassified (8 sources) Sleep disorder; Translations: [Persistent disorder of initiating or maintaining sleep] Onset: 09-24-2008 Episodic Residual codes; unclassified (1 source) Pain, unspecified; Translations: [Pain, unspecified] Onset: 04-13-2022 Episodic Superficial injury; contusion (6 sources) Contusion of left forearm, initial encounter; Translations: [Contusion of right shoulder, initial encounter] Onset: 01-25-2021 Resolved: 03-28-2021 Episodic Unclassified (1 source) Cough R05.9 Results Test Name Value Interpretation Reference Range Facility CBC With Platelet and Differ entialon 03-31-2023 Basophils (Bld) [#/Vol] 0.1 10*3/uL Normal 0.0-0.2 [facility] Comment on above: Performed By: #### C BCWD #### [facility] [address] [place] [address] Basophils/100 WBC (Bld) 0.6 % Normal [facility] Comment on above: Performed By: #### C BCWD #### [facility] [address] [place] [address] Eosinophils (Bld) [#/Vol] 0.4 10*3/uL Normal 0.0-0.7 [facility] Comment on above: Performed By: #### C BCWD #### [facility] [address] [place] [address] Eosinophils/100 WBC (Bld) 4.8 % Normal [facility] Comment on above: Performed By: #### C BCWD #### [facility] [address] [place] [address] Erythrocyte distribution width (RBC) [Ratio] 12.8 % Normal 11.5-14.5 [facility] Comment on above: Performed By: #### C BCWD #### [facility] [address] [place] [address] Hematocrit (Bld) [Volume fraction] 46.2 % Normal 42.0-52.0 [facility] Comment on above: Performed By: #### C BCWD #### [facility] [address] [place] [address] Hemoglobin (Bld) [Mass/Vol] 14.8 g/dL Normal 14.0-18.0 [facility] Comment on above: Performed By: #### C BCWD #### [facility] [address] [place] [address] Lymphocytes (Bld) [#/Vol] 3.2 10*3/uL Normal 1.0-4.8 [facility] Comment on above: Performed By: #### C BCWD #### [facility] [address] [place] [address] Lymphocytes/100 WBC (Bld) 39.7 % Normal [facility] Comment on above: Performed By: #### C BCWD #### [facility] [address] [place] [address] MCH (RBC) [Entitic mass] 29.9 pg Normal 27.0-31.3 [facility] Comment on above: Performed By: #### C BCWD #### [facility] [address] [place] [address] MCHC 32.0 % Low 33.0-37.0 [facility] Comment on above: Performed By: #### C BCWD #### [facility] [address] [place] [address] MCV (RBC) [Entitic vol] 93.3 fL Critically high 79.0-92.2 [facility] Comment on above: Performed By: #### C BCWD #### [facility] [address] [place] [address] Monocytes (Bld) [#/Vol] 0.7 10*3/uL Normal 0.2-0.8 [facility] Comment on above: Performed By: #### C BCWD #### [facility] [address] [place] [address] Monocytes/100 WBC (Bld) 8.4 % Normal [facility] Comment on above: Performed By: #### C BCWD #### [facility] [address] [place] [address] Neutrophils (Bld) [#/Vol] 3.8 10*3/uL Normal 1.4-6.5 [facility] Comment on above: Performed By: #### C BCWD #### [facility] [address] [place] [address] Neutrophils/100 WBC (Bld) 46.1 % Normal [facility] Comment on above: Performed By: #### C BCWD #### [facility] [address] [place] [address] Platelets (Bld) [#/Vol] 291 10*3/uL Normal 130-400 [facility] Comment on above: Performed By: #### C BCWD #### [facility] [address] [place] [address] RBC (Bld) [#/Vol] 4.95 10*6/uL Normal 4.70-6.10 [facility] Comment on above: Performed By: #### C BCWD #### [facility] [address] [place] [address] WBC (Bld) [#/Vol] 8.1 10*3/uL Normal 4.8-10.8 [facility] Comment on above: Performed By: #### C BCWD #### [facility] [address] [place] [address] CTA HEAD W WO CONTRASTon CTA HEAD W WO CONTRAST EXAMINATION: CTA OF THE HEAD WITHOUT AND WITH CONTRAST; CTA OF THE NECK 03/31/2023 5:10 am: TECHNIQUE: CTA of the head/brain was performed without and with the administration of intravenous contrast. Multiplanar reformatted images are provided for review. MIP images are provided for review. Automated exposure control, iterative reconstruction, and/or weight based adjustment of the mA/kV was utilized to reduce the radiation dose to as low as reasonably achievable.; CTA of the neck was performed with the administration of intravenous contrast. Multiplanar reformatted images are provided for review. MIP images are provided for review. Stenosis of the internal carotid arteries measured using NASCET criteria. Automated exposure control, iterative reconstruction, and/or weight based adjustment of the mA/kV was utilized to reduce the radiation dose to as low as reasonably achievable. Noncontrast CT of the head with reconstructed 2-D images are also provided for review. COMPARISON: None. HISTORY: ORDERING SYSTEM PROVIDED HISTORY: R/O LVO TECHNOLOGIST PROVIDED HISTORY: Reason for exam:->R/O LVO Decision Support Exception - unselect if not a suspected or confirmed emergency medical condition->Emergency Medical Condition (MA) What reading provider will be dictating this exam?->CRC; ORDERING SYSTEM PROVIDED HISTORY: R/o LVO TECHNOLOGIST PROVIDED HISTORY: Reason for exam:->R/o LVO Decision Support Exception - unselect if not a suspected or confirmed emergency medical condition->Emergency Medical Condition (MA) What reading provider will be dictating this exam?->CRC FINDINGS: CT HEAD: BRAIN/VENTRICLES: There is no acute infarct or acute intracranial hemorrhage present. There is no mass effect or midline shift present. There is no ventriculomegaly or abnormal extra-axial fluid collection present. ORBITS: Limited evaluation of the orbits is unremarkable. SINUSES: The paranasal sinuses and mastoid air cells are clear. SOFT TISSUES/SKULL: No lytic or blastic osseous lesions are identified. CTA NECK: AORTIC ARCH/ARCH VESSELS: No dissection or arterial injury. No significant stenosis of the brachiocephalic or subclavian arteries. CAROTID ARTERIES: No dissection, arterial injury, or hemodynamically significant stenosis by NASCET criteria. VERTEBRAL ARTERIES: No dissection, arterial injury, or significant stenosis. SOFT TISSUES: The lung apices are clear. No cervical or superior mediastinal lymphadenopathy. The larynx and pharynx are unremarkable. No acute abnormality of the salivary and thyroid glands. BONES: No lytic or blastic osseous lesions are identified. CTA HEAD: ANTERIOR CIRCULATION: The intracranial segments of the internal carotid arteries are normal. There is no significant stenosis or aneurysm identified. The anterior and middle cerebral arteries are normal in appearance. No significant stenosis or aneurysm is identified. POSTERIOR CIRCULATION: The distal vertebral arteries are normal in appearance. The basilar artery is normal. No significant stenosis or aneurysm is identified. The posterior cerebral arteries are normal in appearance. OTHER: No dural venous sinus thrombosis on this non-dedicated study. IMPRESSION: 1. No acute intracranial abnormality. 2. Unremarkable CTA of the head and neck. Interpreted by: Shamir Browning MD Signed by: Shamir Browning MD 03/31/[address] [facility] CTA NECK W WO CONTRASTon CTA NECK W WO CONTRAST EXAMINATION: CTA OF THE HEAD WITHOUT AND WITH CONTRAST; CTA OF THE NECK 03/31/2023 5:10 am: TECHNIQUE: CTA of the head/brain was performed without and with the administration of intravenous contrast. Multiplanar reformatted images are provided for review. MIP images are provided for review. Automated exposure control, iterative reconstruction, and/or weight based adjustment of the mA/kV was utilized to reduce the radiation dose to as low as reasonably achievable.; CTA of the neck was performed with the administration of intravenous contrast. Multiplanar reformatted images are provided for review. MIP images are provided for review. Stenosis of the internal carotid arteries measured using NASCET criteria. Automated exposure control, iterative reconstruction, and/or weight based adjustment of the mA/kV was utilized to reduce the radiation dose to as low as reasonably achievable. Noncontrast CT of the head with reconstructed 2-D images are also provided for review. COMPARISON: None. HISTORY: ORDERING SYSTEM PROVIDED HISTORY: R/O LVO TECHNOLOGIST PROVIDED HISTORY: Reason for exam:->R/O LVO Decision Support Exception - unselect if not a suspected or confirmed emergency medical condition->Emergency Medical Condition (MA) What reading provider will be dictating this exam?->CRC; ORDERING SYSTEM PROVIDED HISTORY: R/o LVO TECHNOLOGIST PROVIDED HISTORY: Reason for exam:->R/o LVO Decision Support Exception - unselect if not a suspected or confirmed emergency medical condition->Emergency Medical Condition (MA) What reading provider will be dictating this exam?->CRC FINDINGS: CT HEAD: BRAIN/VENTRICLES: There is no acute infarct or acute intracranial hemorrhage present. There is no mass effect or midline shift present. There is no ventriculomegaly or abnormal extra-axial fluid collection present. ORBITS: Limited evaluation of the orbits is unremarkable. SINUSES: The paranasal sinuses and mastoid air cells are clear. SOFT TISSUES/SKULL: No lytic or blastic osseous lesions are identified. CTA NECK: AORTIC ARCH/ARCH VESSELS: No dissection or arterial injury. No significant stenosis of the brachiocephalic or subclavian arteries. CAROTID ARTERIES: No dissection, arterial injury, or hemodynamically significant stenosis by NASCET criteria. VERTEBRAL ARTERIES: No dissection, arterial injury, or significant stenosis. SOFT TISSUES: The lung apices are clear. No cervical or superior mediastinal lymphadenopathy. The larynx and pharynx are unremarkable. No acute abnormality of the salivary and thyroid glands. BONES: No lytic or blastic osseous lesions are identified. CTA HEAD: ANTERIOR CIRCULATION: The intracranial segments of the internal carotid arteries are normal. There is no significant stenosis or aneurysm identified. The anterior and middle cerebral arteries are normal in appearance. No significant stenosis or aneurysm is identified. POSTERIOR CIRCULATION: The distal vertebral arteries are normal in appearance. The basilar artery is normal. No significant stenosis or aneurysm is identified. The posterior cerebral arteries are normal in appearance. OTHER: No dural venous sinus thrombosis on this non-dedicated study. IMPRESSION: 1. No acute intracranial abnormality. 2. Unremarkable CTA of the head and neck. Interpreted by: Shamir Browning MD Signed by: Shamir Browning MD 03/31/[address] [facility] Comprehensive Metabolic Pane narayan 03-31-2023 Albumin [Mass/Vol] 4.0 g/dL Normal 3.5-4.6 [facility] Comment on above: Performed By: #### C MP #### [facility] [address] [place] [address] ALP [Catalytic activity/Vol] 61 U/L Normal 35-104 [facility] Comment on above: Performed By: #### C MP #### [facility] [address] [place] [address] ALT [Catalytic activity/Vol] 16 U/L Normal 0-41 [facility] Comment on above: Performed By: #### C MP #### [facility] [address] [place] [address] Anion gap [Moles/Vol] 13 mmol/L Normal 9-15 [facility] Comment on above: Performed By: #### C MP #### [facility] [address] [place] [address] AST [Catalytic activity/Vol] 20 U/L Normal 0-40 [facility] Comment on above: Result Comment: Spec imen hemolysis has exceeded the interference as defined by Buster. Value may be falsely increased. Suggest recollection if clinically indicated. Performed By: #### C MP #### [facility] [address] [place] [address] Bilirubin [Mass/Vol] 0.4 mg/dL Normal 0.2-0.7 [facility] Comment on above: Performed By: #### C MP #### [facility] [address] [place] [address] Calcium [Mass/Vol] 8.9 mg/dL Normal 8.5-9.9 [facility] Comment on above: Performed By: #### C MP #### [facility] [address] [place] [address] Chloride [Moles/Vol] 106 mmol/L Normal 95-107 [facility] Comment on above: Performed By: #### C MP #### [facility] [address] [place] [address] CO2 [Moles/Vol] 22 mmol/L Normal 20-31 [facility] Comment on above: Performed By: #### C MP #### [facility] [address] [place] [address] Creatinine [Mass/Vol] 0.81 mg/dL Normal 0.70-1.20 [facility] Comment on above: Performed By: #### C MP #### [facility] [address] [place] [address] GFR >60.0 Normal >60 [facility] Comment on above: Result Comment: Aura atric calculator link https://www.[email or web address].org/professionals/kdoqi/gfr_[email or web address] Effective Jan 30, 2022 These results are not intended for use in patients <18 years of age. eGFR results are calculated without a race factor using the 2020 CKD-EPI equation. Careful clinical correlation is recommended, particularly when comparing to results calculated using previous equations. The CKD-EPI equation is less accurate in patients with extremes of muscle mass, extra-renal metabolism of creatinine, excessive creatinine ingestion, or following therapy that affects renal tubular secretion. Performed By: #### C MP #### [facility] [address] [place] [address] Globulin (S) [Mass/Vol] 2.5 g/dL Normal 2.3-3.5 [facility] Comment on above: Performed By: #### C MP #### [facility] [address] [place] [address] Glucose [Mass/Vol] 110 mg/dL Critically high 70-99 M [facility] Comment on above: Performed By: #### C MP #### [facility] [address] [place] [id number] Potassium [Moles/Vol] 4.1 mmol/L Normal 3.4-4.9 [facility] Comment on above: Performed By: #### C MP #### [facility] [address] [place] [address] Protein [Mass/Vol] 6.5 g/dL Normal 6.3-8.0 [facility] Comment on above: Performed By: #### C MP #### [facility] [address] [place] [address] Sodium [Moles/Vol] 141 mmol/L Normal 135-144 [facility] Comment on above: Performed By: #### C MP #### [facility] [address] [place] [address] Urea nitrogen [Mass/Vol] 13 mg/dL Normal 6-20 [facility] Comment on above: Performed By: #### C MP #### [facility] [address] [place] [address] High Sensitivity Troponin To n 03-31-2023 High Sensitivity Troponin T <6 Normal 0-19 [facility] Comment on above: Result Comment: High Sensitivity Troponin values cannot be compared with other Troponin methodologies. Performed By: #### T RP5 #### [facility] [address] [place] [address] High Sensitivity Troponin T <6 Normal 0-19 [facility] Comment on above: Result Comment: High Sensitivity Troponin values cannot be compared with other Troponin methodologies. Performed By: #### T RP5 #### [facility] [address] [place] [address] Magnesiumon 03-31-2023 Magnesium [Mass/Vol] 2.0 mg/dL Normal 1.7-2.4 [facility] Comment on above: Performed By: #### M G #### [facility] [address] [place] [address] POCT Venouson 03-31-2023 Creatinine [Mass/Vol] 0.9 mg/dL Normal 0.8-1.3 [facility] Comment on above: Performed By: #### T RP5 #### [facility] [address] [place] [address] GFR >60 Normal >60 [facility] Comment on above: Result Comment: Pedi atric calculator link https://www.kidney.org/professionals/kdoqi/gfr_calculatorped Effective Jan 30, 2022 These results are not intended for use in patients <18 years of age. eGFR results are calculated without a race factor using the 2020 CKD-EPI equation. Careful clinical correlation is recommended, particularly when comparing to results calculated using previous equations. The CKD-EPI equation is less accurate in patients with extremes of muscle mass, extra-renal metabolism of creatinine, excessive creatinine ingestion, or following therapy that affects renal tubular secretion. Performed By: #### T RP5 #### [facility] [address] [place] [address] POC Performed on SEE BELOW [facility] Comment on above: Result Comment: Perf ormed on POC Performed By: #### T RP5 #### [facility] [address] [place] [address] POC Sample Type PADMINI [facility] Comment on above: Performed By: #### T RP5 #### [facility] [address] [place] [address] XR CHEST PORTABLEon 03-31-20 XR CHEST PORTABLE EXAMINATION: ONE XRAY VIEW OF THE CHEST 03/31/2023 5:05 am COMPARISON: None. HISTORY: ORDERING SYSTEM PROVIDED HISTORY: Dizzy TECHNOLOGIST PROVIDED HISTORY: Reason for exam:->Dizzy What reading provider will be dictating this exam?->CRC FINDINGS: Portable chest reveals cardiac and mediastinal silhouettes within normal limits. The lung nguyen are grossly clear. No focal parenchymal opacification present. No pleural effusion or pneumothorax. Degenerative changes seen within the spine. Pulmonary vascularity is within normal limits. IMPRESSION: No acute cardiopulmonary disease. Interpreted by: Darlene Varela MD Signed by: Darlene Varela MD 03/31/[address] [facility] proBNPon 03-31-2023 proBNP <5 [facility] Comment on above: Result Comment: NT-p ro BNP ACUTE Interpretive Guidelines: Age Cutoff for Heart Failure Less than 50 yrs 450 pg/mL 50-75 yrs 900 pg/mL Greater than 75 yrs 1800 pg/mL NT-pro BNP NON-ACUTE Interpretive Guidelines: Age Reference Range Less than 74 yrs 0-125 pg/mL Greater than 74 yrs 0-450 pg/mL Other possible causes of an elevated NT-proBNP include: cardiac ischemia, acute coronary syndrome, COPD, pneumonia, atrial fibrillation, pulmonary emboli, pulmonary hypertension, pericarditis Reference: Junior Gonzalez et al. NT-proBNP testing for diagnosis and short-term prognosis in acute destabilized HF: an international pooled analysis of 1256 patients. Heart Journal. 2006;27:330-337 Performed By: #### B NPPR #### [facility] [address] [place] [address] Alanine aminotransferase [En zymatic activity/volume] in Serum or PlasmaOrdered By: Sam Mccoy on 02-01-2023 ALT [Catalytic activity/Vol] 18 U/L 7-52 [facility] Albumin [Mass/volume] in Ser um or Plasma by Bromocresol green (BCG) dye binding methoOrdered By: Sam Mccoy on 02-01-2023 Albumin BCG dye [Mass/Vol] 4.2 g/dL 3.5-5.7 [facility] Alkaline phosphatase [Enzyma tic activity/volume] in Serum or PlasmaOrdered By: Sam Mccoy on 02-01-2023 ALP [Catalytic activity/Vol] 47 U/L 34-104 [facility] Aspartate aminotransferase [ Enzymatic activity/volume] in Serum or PlasmaOrdered By: Sam Mccoy on 02-01-2023 AST [Catalytic activity/Vol] 17 U/L 13-39 [facility] Basophils Auto (Bld) [#/Vol] Ordered By: Sam Mccoy on 02-01-2023 Basophils (Bld) [#/Vol] 0.1 10*3/uL 0.0-0.2 [facility] Basophils/100 WBC Auto (Bld) Ordered By: Sam Mccoy on 02-01-2023 Basophils/100 WBC (Bld) 0.8 % . [facility] Bilirubin Test strip Ql (U)O rdered By: Sam Mccoy on 02-01-2023 Bilirubin Ql (U) Negative Negative [facility] Bilirubin.total [Mass/volume ] in Serum or PlasmaOrdered By: Sam Mccoy on 02-01-2023 Bilirubin [Mass/Vol] 0.6 mg/dL 0.3-1.0 [facility] Blood Cultureon 02-01-2023 Bacteria identified Cx Nom (Bld) NO GROWTH 5 DAYS PERFORMED BY: [place] [address] PATHOLOGIST CUTTING TABLE OPERATOR JERAMY DHALIWAL M.D. [facility] Comment on above: Performed By: #### C BC, CUBLD, LACTIC, CMP ####[address] Bacteria identified Cx Nom (Bld) NO GROWTH 5 DAYS PERFORMED BY: [place] [address] PATHOLOGIST CUTTING TABLE OPERATOR JERAMY DHALIWAL M.D. [facility] Comment on above: Performed By: #### C BC, CUBLD, LACTIC, CMP ####[address] abdomen pelvis wo conon 1 CT abdomen pelvis wo [facility] [place] [address] [place] [address] CT Scan Report Signed Patient: Carmelita Eastman MR#: [id number] [birth year] : 1975 Acct:[id number] Age/Sex: 47 / M ADM Date: 01/31/23 Loc: ER Room: Type: [facility] ER Attending Dr: Copies to: Sam Mccoy Jr, MD Ordering Provider: Sam Mccoy Jr, MD Date of Service: 02/01/23 CT/CT abdomen pelvis wo con: abdominal pain CT Abdomen and Pelvis withoutcontrast TECHNIQUE: Axial imaging with 2-D reconstruction. . The CT exam was performed using one or more the following dose reduction techniques: Automated exposure control, adjustment of the MA and/or Kv according to patient size, or use of the iterative reconstruction technique. COMPARISON: 11/02/22 History: Right-sided abdominal pain. LIMITATIONS: None LOWER THORAX Unremarkable LIVER: Hepatic steatosis. GALLBLADDER: No gallbladder abnormality identified. BILE DUCTS: No dilatation SPLEEN: Unremarkable PANCREAS: Unremarkable ADRENAL GLANDS: Unremarkable KIDNEYS:Similar bilateral renal calculi measuring up to 1 cm.. No obstructive uropathy. AORTA: No abdominal aortic aneurysm identified. RETROPERITONEUM: No significant retroperitoneal abnormalities identified. MESENTERY:Unremarkable SMALL BOWEL: The small bowel loops are nondistended. APPENDIX: The appendix is normal. COLON: Mild colonic wall thickening involving the RIGHT and transverse colon. Consider underdistention versus mild colitis. URINARY BLADDER: Urinary bladder is unremarkable. REPRODUCTIVE SYSTEM: Reproductive structures are unremarkable. PNEUMOPERITONEUM: None PERITONEAL FLUID:None BONY STRUCTURES: Prior L4-S1 fusion. Bilateral SI joint fusion. Spinal stimulator present. Bilateral hip arthritis. ABDOMINAL WALL: Unremarkable CT/CT abdomen pelvis wo con IMPRESSION: Bilateral nephrolithiasis. No obstructive uropathy. Right-sided colon wall thickening. Consider underdistention versus mild colitis. Impression dictated by: Dave Arnold M.D.02/01/2023 7:56 AM Dictation Location: [place] [address] Transcribed By: BLUE 02/01/23 075 Dictated By: Dave Arnold DO 02/01/23 075 Signed By: 02/01/23 075 Normal [facility] Calcium [Mass/volume] in Ser um or PlasmaOrdered By: Sam Mccoy on 02-01-2023 Calcium [Mass/Vol] 8.9 mg/dL 8.6-10.3 [facility] Carbon dioxide, total [Moles /volume] in Serum or PlasmaOrdered By: Sam Mccoy on 02-01-2023 CO2 [Moles/Vol] 25.3 mmol/L 21.0-31.0 [facility] Chloride [Moles/volume] in S rosi or PlasmaOrdered By: Sam Mccoy on 02-01-2023 Chloride [Moles/Vol] 104 mmol/L 98-107 [facility] Color Auto (U)Ordered By: Ambrose Mccoy on 02-01-2023 Color (U) Yellow Yellow [facility] Complete Blood Count Auto Di ffon 02-01-2023 Basophils (Bld) [#/Vol] 0.1 10*3/uL Normal 0.0-0.2 [facility] Comment on above: Result Comment: PERF ORMED BY: [facility] [address] [place] [address] PATHOLOGIST CUTTING TABLE OPERATOR JERAMY DHALIWAL M.D. Performed By: #### C BC, CUBLD, LACTIC, CMP ####[address] Basophils/100 WBC (Bld) 0.8 % Normal . [facility] Comment on above: Performed By: #### C BC, CUBLD, LACTIC, CMP ####[address] Eosinophils (Bld) [#/Vol] 0.1 10*3/uL Normal 0.0-0.45 [facility] Comment on above: Performed By: #### C BC, CUBLD, LACTIC, CMP ####[address] Eosinophils/100 WBC (Bld) 1.6 % Normal . [facility] Comment on above: Performed By: #### C BC, CUBLD, LACTIC, CMP ####[address] Erythrocyte distribution width (RBC) [Ratio] 13.5 % Normal 12.0-14.8 [facility] Comment on above: Performed By: #### C BC, CUBLD, LACTIC, CMP ####[address] Hematocrit (Bld) [Volume fraction] 43.1 % Normal 38.8-50.0 [facility] Comment on above: Performed By: #### C BC, CUBLD, LACTIC, CMP ####[address] Hemoglobin (Bld) [Mass/Vol] 14.6 g/dL Normal 13.0-17.0 [facility] Comment on above: Performed By: #### C BC, CUBLD, LACTIC, CMP ####[address] Lymphocytes (Bld) [#/Vol] 2.2 10*3/uL Normal 1.00-4.8 [facility] Comment on above: Performed By: #### C BC, CUBLD, LACTIC, CMP ####[address] Lymphocytes/100 WBC (Bld) 27.0 % Normal . [facility] Comment on above: Performed By: #### C IOANA RAMIREZ LACTIC, CMP ####[address] MCH (RBC) [Entitic mass] 30.4 pg Normal 27.5-35.2 [facility] Comment on above: Performed By: #### C BCIOANA LACTIC, CMP ####[address] MCV (RBC) [Entitic vol] 90.0 fL Normal 83.5-101 [facility] Comment on above: Performed By: #### C IOANA RAMIREZ LACTIC, CMP ####[address] Mean Corpuscular HGB Conc 33.8 g/dL Normal 32.5-35.6 [facility] Comment on above: Performed By: #### C IOANA RAMIREZ LACTIC, CMP ####[address] Monocytes (Bld) [#/Vol] 0.7 10*3/uL Normal 0.0-0.8 [facility] Comment on above: Performed By: #### C BCIOANA LACTIC, CMP ####[address] Monocytes/100 WBC (Bld) 19.96 % Normal 0.00-20.00 [facility] Comment on above: Result Comment: For adults in ED, MDW > 20.0 may be associated with a higher risk of sepsis during the first 12 hrs of hospital admission Performed By: #### C BCIOANA LACTIC, CMP ####[address] Monocytes/100 WBC (Bld) 8.4 % Normal . [facility] Comment on above: Performed By: #### C BC CUBLD LACTIC, CMP ####[address] Neutrophils (Bld) [#/Vol] 5.1 10*3/uL Normal 1.8-7.7 [facility] Comment on above: Performed By: #### C IOANA RAMIREZ LACTIC, CMP ####[place] [id number] [place] [id number] [facility] Neutrophils/100 WBC (Bld) 62.2 % Normal . [facility] Comment on above: Performed By: #### C IOANA RAMIREZ LACTIC, CMP ####[address] NRBC% 0.0 /100{WBC} Normal 0-0.5 [facility] Comment on above: Performed By: #### C IOANA RAMIREZ LACTIC, CMP ####[address] Platelet mean volume (Bld) [Entitic vol] 7.5 fL Normal 6.6-10.1 [facility] Comment on above: Performed By: #### C IOANA RAMIREZ LACTIC, CMP ####[address] Platelets (Bld) [#/Vol] 231 10*3/uL Normal 150-450 [facility] Comment on above: Performed By: #### C IOANA RAMIREZ LACTIC, CMP ####[address] RBC (Bld) [#/Vol] 4.79 10*6/uL Normal 3.90-5.60 [facility] Comment on above: Performed By: #### C BC CUBLD, LACTIC, CMP ####[place] [id number] [facility] WBC (Bld) [#/Vol] 8.2 10*3/uL Normal 4.1-10.5 [facility] Comment on above: Performed By: #### Lyly BC CUBLD LACTIC, CMP ####[place] [id number] [facility] Comprehensive Metabolic Pane narayan 10-05-2023 Albumin [Mass/Vol] 4.2 g/dL Normal 3.5-5.7 [facility] Comment on above: Performed By: #### C BC, CUBLD, LACTIC, CMP #### [facility] [address] Albumin/Globulin [Mass ratio] 1.5 {ratio} Normal [facility] Comment on above: Performed By: #### C BC, CUBLD, LACTIC, CMP #### [facility] [address] ALP [Catalytic activity/Vol] 47 U/L Normal 34-104 [facility] Comment on above: Performed By: #### C BC, CUBLD, LACTIC, CMP #### [address] ALT [Catalytic activity/Vol] 18 U/L Normal 7-52 [facility] Comment on above: Performed By: #### C BC, CUBLD, LACTIC, CMP #### [facility] [address] Anion gap [Moles/Vol] 11.5 mmol/L Normal 6.0-15.[address] [facility] Comment on above: Performed By: #### C BC, CUBLD, LACTIC, CMP #### [address] AST [Catalytic activity/Vol] 17 U/L Normal 13-39 [facility] Comment on above: Performed By: #### C BC, CUBLD, LACTIC, CMP #### [address] Bilirubin [Mass/Vol] 0.6 mg/dL Normal 0.3-1.0 [facility] Comment on above: Performed By: #### C BC, CUBLD, LACTIC, CMP #### [facility] [address] Calcium [Mass/Vol] 8.9 mg/dL Normal 8.6-10.3 [facility] Comment on above: Performed By: #### C BC, CUBLD, LACTIC, CMP #### [address] [place] [address] [place] Chloride [Moles/Vol] 104 mmol/L Normal 98-107 [facility] Comment on above: Performed By: #### C IOANA RAMIREZ LACTIC, CMP #### [address] CO2 [Moles/Vol] 25.3 mmol/L Normal 21.0-31.0 [facility] Comment on above: Performed By: #### C BCIOANA LACTIC, CMP #### [facility] [address] Creatinine [Mass/Vol] 1.05 mg/dL Normal 0.70-1.30 [facility] Comment on above: Performed By: #### C IOANA RAMIREZ LACTIC, CMP #### [address] Creatinine Clr Calc Pharmacy 102.41 [facility] Comment on above: Result Comment: PERF ORMED BY: [place] [address] PATHOLOGIST CUTTING TABLE OPERATOR JERAMY DHALIWAL M.D. Performed By: #### C IOANA RAMIREZ LACTIC, CMP #### [address] GFR/1.73 sq M.predicted MDRD (S/P/Bld) [Vol rate/Area] mL/min/{1.73_m2} [facility] Comment on above: Performed By: #### C BCIOANA LACTIC, CMP #### [address] Globulin (S) [Mass/Vol] 2.8 g/dL [facility] Comment on above: Performed By: #### C BCIOANA LACTIC, CMP #### [address] Glucose [Mass/Vol] 96 mg/dL Normal 70-100 [facility] Comment on above: Result Comment: [facility] Glucose Reference Range is dependent on time and content of last meal. Glucose of more than 200 mg/dL in a nonstressed, ambulatory subject supports the diagnosis of Diabetes Mellitus. ADA recommended reference range Performed By: #### C BCGUSTAVOLD LACTIC, CMP #### [facility] [address] Potassium [Moles/Vol] 3.8 mmol/L Normal 3.5-5.1 [facility] Comment on above: Performed By: #### C BCIOANA LACTIC, CMP #### [facility] [address] Protein [Mass/Vol] 7.0 g/dL Normal 6.4-8.9 [facility] Comment on above: Performed By: #### C BCIOANA LACTIC, CMP #### [address] Sodium [Moles/Vol] 137 mmol/L Normal 136-145 [facility] Comment on above: Performed By: #### C BCIOANA LACTIC, CMP #### [address] Urea nitrogen [Mass/Vol] 16 mg/dL Normal 7-25 [facility] Comment on above: Performed By: #### C BCIOANA LACTIC, CMP #### [address] Creatinine [Mass/volume] in Serum or PlasmaOrdered By: Sam Mccoy on 02-01-2023 Creatinine [Mass/Vol] 1.05 mg/dL 0.70-1.30 [facility] Eosinophils Auto (Bld) [#/Vo l]Ordered By: Sam Mccoy on 02-01-2023 Eosinophils (Bld) [#/Vol] 0.1 10*3/uL 0.0-0.45 [facility] Eosinophils/100 WBC Auto (Bl d)Ordered By: Sam Mccoy on 02-01-2023 Eosinophils/100 WBC (Bld) 1.6 % . [facility] Erythrocyte distribution wid th Auto (RBC) [Ratio]Ordered By: Sam Mccoy on 02-01-2023 Erythrocyte distribution width (RBC) [Ratio] 13.5 % 12.0-14.8 [facility] Globulin Calc (S) [Mass/Vol] Ordered By: Sam Mccoy on 02-01-2023 Globulin (S) [Mass/Vol] 2.8 g/dL [facility] Glucose [Mass/volume] in Ser um or PlasmaOrdered By: Sam Mccoy on 02-01-2023 Glucose [Mass/Vol] 96 mg/dL 70-100 [facility] Comment on above: ADA recommended refe rence rangeRandom Glucose Reference Range is dependent on time and content of last meal. Glucose of more than 200 mg/dL in a nonstressed, ambulatory subject supports the diagnosis of Diabetes Mellitus. Hematocrit Auto (Bld) [Volum e fraction]Ordered By: Sam Mccoy on 02-01-2023 Hematocrit (Bld) [Volume fraction] 43.1 % 38.8-50.0 [facility] Hemoglobin [Mass/volume] in BloodOrdered By: Sam Mccoy on 02-01-2023 Hemoglobin (Bld) [Mass/Vol] 14.6 g/dL 13.0-17.0 [facility] Ketones Auto test strip (U) [Mass/Vol]Ordered By: Sam Mccoy on 02-01-2023 Ketones (U) [Mass/Vol] Negative Negative [facility] Lactate [Moles/volume] in Se rum or PlasmaOrdered By: Sam Mccoy on 02-01-2023 Lactate [Moles/Vol] 0.7 mmol/L 0.5-2.2 [facility] Lactic Acidon 02-01-2023 Lactate [Moles/Vol] 0.7 mmol/L Normal 0.5-2.2 [facility] Comment on above: Result Comment: PERF ORMED BY: [facility] [address] [place] [address] PATHOLOGIST CUTTING TABLE OPERATOR JERAMY DHALIWAL M.D. Performed By: #### C BC, CUBLD, LACTIC, CMP ####[facility] [id number] [place] [address] [facility] Leukocytes [#/volume] correc carl for nucleated erythrocytes in Blood by Automated counOrdered By: Sam Mccoy on 02-01-2023 WBC corrected for nucl RBC Auto (Bld) [#/Vol] 8.2 10*3/uL 4.1-10.5 [facility] Lymphocytes Auto (Bld) [#/Vo l]Ordered By: Sam Mccoy on 02-01-2023 Lymphocytes (Bld) [#/Vol] 2.2 10*3/uL 1.00-4.8 [facility] Lymphocytes/100 WBC Auto (Bl d)Ordered By: Sam Mccoy on 02-01-2023 Lymphocytes/100 WBC (Bld) 27.0 % . [facility] MCH Auto (RBC) [Entitic mass ]Ordered By: Sam Mccoy on 02-01-2023 MCH (RBC) [Entitic mass] 30.4 pg 27.5-35.2 [facility] MCHC Auto (RBC) [Mass/Vol]Or dered By: Sam Mccoy on 02-01-2023 MCHC (RBC) [Mass/Vol] 33.8 g/dL 32.5-35.6 [facility] MCV Auto (RBC) [Entitic vol] Ordered By: Sam Mccoy on 02-01-2023 MCV (RBC) [Entitic vol] 90.0 fL 83.5-101 [facility] Monocyte distribution width [Entitic volume] in Blood by AutomatedOrdered By: Sam Mccoy on 02-01-2023 Monocyte distribution width Auto (Bld) [Entitic vol] 19.96 % 0.00-20.00 [facility] Comment on above: For adults in ED, MD W > 20.0 may be associated with a higher risk of sepsis during the first 12 hrs of hospital admission Monocytes Auto (Bld) [#/Vol] Ordered By: Sam Mccoy on 02-01-2023 Monocytes (Bld) [#/Vol] 0.7 10*3/uL 0.0-0.8 [facility] Monocytes/100 WBC Auto (Bld) Ordered By: Sam Mccoy on 02-01-2023 Monocytes/100 WBC (Bld) 8.4 % . [facility] Neutrophils Auto (Bld) [#/Vo l]Ordered By: Sam Mccoy on 02-01-2023 Neutrophils (Bld) [#/Vol] 5.1 10*3/uL 1.8-7.7 [facility] Neutrophils/100 WBC Auto (Bl d)Ordered By: Sam Mccoy on 02-01-2023 Neutrophils/100 WBC (Bld) 62.2 % . [facility] Nitrite Test strip Ql (U)Ord ered By: Sam Mccoy on 02-01-2023 Nitrite Ql (U) Negative Negative [facility] No Panel InformationOrdered By: Sam Mccoy on 02-01-2023 Estimated GFR (CKD-EPI) > 60.0 mL/Min [facility] Creatinine Clearance (Chem 102.41 [facility] Nucleated erythrocytes [Pres ence] in Blood by Automated countOrdered By: Sam Mccoy on 02-01-2023 Nucleated RBC Auto Ql (Bld) 0.0 /100{WBC} 0-0.5 [facility] Platelet mean volume Auto (B ld) [Entitic vol]Ordered By: Sam Mccoy on 02-01-2023 Platelet mean volume (Bld) [Entitic vol] 7.5 fL 6.6-10.1 [facility] Platelets Auto (Bld) [#/Vol] Ordered By: Sam Mccoy on 02-01-2023 Platelets (Bld) [#/Vol] 231 10*3/uL 150-450 [facility] Potassium [Moles/volume] in Serum or PlasmaOrdered By: Sam Mccoy on 02-01-2023 Potassium [Moles/Vol] 3.8 mmol/L 3.5-5.1 [facility] Protein Auto test strip (U) [Mass/Vol]Ordered By: Sam Mccoy on 02-01-2023 Protein (U) [Mass/Vol] Negative Negative [facility] Protein [Mass/volume] in Ser um or PlasmaOrdered By: Sam Mccoy on 02-01-2023 Protein [Mass/Vol] 7.0 g/dL 6.4-8.9 [facility] RBC Auto (Bld) [#/Vol]Ordere d By: Sam Mccoy on 02-01-2023 RBC (Bld) [#/Vol] 4.79 10*6/uL 3.90-5.60 [facility] Serum or plasma albumin/glob ulin mass ratioOrdered By: Sam Mccoy on 02-01-2023 Albumin/Globulin [Mass ratio] 1.5 {ratio} [facility] Serum or plasma anion gap de terminationOrdered By: Sam Mccoy on 02-01-2023 Anion gap [Moles/Vol] 11.5 mmol/L 6.0-15.[address] [facility] Sodium [Moles/volume] in Ser um or PlasmaOrdered By: Sam Mccoy on 02-01-2023 Sodium [Moles/Vol] 137 mmol/L 136-145 [facility] Specific gravity Auto test s trip (U) [Rel density]Ordered By: Sam Mccoy on 02-01-2023 Specific gravity (U) [Rel density] 1.007 1.001-1.03 0 [facility] Urea nitrogen [Mass/volume] in Serum or PlasmaOrdered By: Sam Mccoy on 02-01-2023 Urea nitrogen [Mass/Vol] 16 mg/dL 7- [facility] Urinalysison 02-01-2023 Appearance (U) Clear Normal Clear [facility] Comment on above: Order Comment: Name Collection Type:: Clean-Voided Midstream Performed By: #### U A ####[place] [id number] [facility] Bilirubin,Urine Negative Normal Negative [facility] Comment on above: Order Comment: Name Collection Type:: Clean-Voided Midstream Performed By: #### U A ####[place] [id number] [facility] Color (U) Yellow Normal Yellow [facility] Comment on above: Order Comment: Name Collection Type:: Clean-Voided Midstream Performed By: #### U A ####[place] [id number] [facility] Glucose Ql (U) Normal Normal Normal [facility] Comment on above: Order Comment: Name Collection Type:: Clean-Voided Midstream Performed By: #### U A ####[place] [id number] [facility] Ketones Ql (U) Negative Normal Negative [facility] Comment on above: Order Comment: Name Collection Type:: Clean-Voided Midstream Performed By: #### U A ####[address] [place] [address] [facility] Leukocyte esterase Test strip Ql (U) Negative Normal Negative [facility] Comment on above: Order Comment: Name Collection Type:: Clean-Voided Midstream Performed By: #### U A ####[place] [id number] [facility] Nitrite,Urine Negative Normal Negative [facility] Comment on above: Order Comment: Name Collection Type:: Clean-Voided Midstream Performed By: #### U A ####[place] [id number] [facility] Occult Blood,Urine Negative Normal Negative [facility] Comment on above: Order Comment: Name Collection Type:: Clean-Voided Midstream Result Comment: PERF ORMED BY: [facility] [address] [place] [address] PATHOLOGIST CUTTING TABLE OPERATOR JERAMY DHALIWAL M.D. Performed By: #### U A ####[place] [id number] [facility] pH (U) 6.0 [pH] Normal 5.0-9.0 [facility] Comment on above: Order Comment: Name Collection Type:: Clean-Voided Midstream Performed By: #### U A ####[place] [id number] [facility] Protein,Urine Negative Normal Negative [facility] Comment on above: Order Comment: Name Collection Type:: Clean-Voided Midstream Performed By: #### U A ####[place] [id number] [facility] Specificy [place],Urine 1.007 Normal 1.001-1.03 0 [facility] Comment on above: Order Comment: Name Collection Type:: Clean-Voided Midstream Performed By: #### U A ####[place] [id number] [facility] Urobilinogen,Urine Normal Normal Normal [facility] Comment on above: Order Comment: Name Collection Type:: Clean-Voided Midstream Performed By: #### U A ####[address] [place] [address] [facility] Urine clarity by refractomet ry automatedOrdered By: Sam Mccoy on 02-01-2023 Clarity Refractometry automated (U) Clear Clear [facility] Urine glucose measurement by automated test strip (mass/volume)Ordered By: Sam Mccoy on 02-01-2023 Glucose Auto test strip (U) [Mass/Vol] Normal mg/dL Normal [facility] Urine hemoglobin detection b y automated test stripOrdered By: Sam Mccoy on 02-01-2023 Hemoglobin Auto test strip Ql (U) Negative Negative [facility] Urine leukocyte esterase det ection by automated test stripOrdered By: Sam Mccoy on 02-01-2023 Leukocyte esterase Auto test strip Ql (U) Negative Negative [facility] Urobilinogen Auto test strip (U) [Mass/Vol]Ordered By: Sam Mccoy on 02-01-2023 Urobilinogen (U) [Mass/Vol] Normal mg/dL Normal [facility] WBC Auto (Bld) [#/Vol]Ordere d By: Sam Mccoy on 02-01-2023 WBC (Bld) [#/Vol] 8.2 10*3/uL 4.1-10.5 [facility] pH Auto test strip (U)Ordere d By: Sam Mccoy on 02-01-2023 pH (U) 6.0 [pH] 5.0-9.0 [facility] OPERATIVE REPORTon 3 [place] [address] OPERATIVE REPORT PATIENT NAME: CARMELITA EASTMAN : 1975 MED REC NO: [id number] ROOM: ACCOUNT NO: [id number] ADMIT DATE: 11/09/2022 PROVIDER: Fara López MD DATE OF PROCEDURE: 11/09/2022 PREOPERATIVE DIAGNOSIS: Left proximal ureteral stone, status post lithotripsy with stent. POSTOPERATIVE DIAGNOSIS: Left proximal ureteral stone, status post lithotripsy with stent. PROCEDURE PERFORMED: Flexible cystoscopy with left double-J stent extraction. SURGEON: Fara López MD ANESTHESIA: MAC with 2% lidocaine local per urethra. ESTIMATED BLOOD LOSS: Minimal. COMPLICATIONS: None. CONDITION: Stable to recovery room. BRIEF CLINICAL NOTE: This 47-year-old male with history of depression, chronic back pain, he has seen pain management in the past for this, who underwent cystoscopy with stent insertion for left proximal ureteral stone done on 10/06/2022, for pain, nausea, and vomiting. He then underwent left lithotripsy on 10/23/2022. He was seen several times in an outside emergency room for continued pain related to his stent. He had a CAT scan done twice at these outside facilities showing no residual stones within the ureter and a stent in good position. Because of the stent-related irritation and symptoms, he requested that stent be removed. Given the CT scan done in the interim showing no residual ureteral stones, it was felt to be reasonable to remove the stent. He understood the risks and benefits of the planned procedure including the possible need for stent reinsertion, he is willing to proceed as planned. He had negative urine culture. Prior to procedure, he was on oral Levaquin prior to surgery. He was given a gram of IV Rocephin preoperatively. A time-out was held at the beginning of the case. Discussed with the patient at the beginning of the case and his at the end of the case. OPERATIVE PROCEDURE: The patient was brought to the operating room with an informed consent signed, IV running. After successful induction of MAC anesthesia, he was placed in a supine position on the operating table. He was prepped and draped sterilely. A 2% lidocaine Uro-Jet was guided per urethra. Then, a flexible cystoscope was guided atraumatically through urethra into the bladder. The urethra appeared unremarkable. The stent was noted to be emanating from the left ureteral orifice. The stent was grasped at its end with flexible grasping forceps and removed in toto without complication. The patient tolerated the procedure well without any complication. He was awoken anesthesia and taken to recovery room in stable condition. He will follow up in my office as scheduled. FARA LÓPEZ MD ALIVIA/[email or web address] Doc#: [id number] CC: Fara López MD [facility] Alanine aminotransferase [En zymatic activity/volume] in Serum or PlasmaOrdered By: Ana Maria Loera on 11-02-2022 ALT [Catalytic activity/Vol] 9 U/L 7-52 [facility] Albumin [Mass/volume] in Ser um or Plasma by Bromocresol green (BCG) dye binding methoOrdered By: Ana Maria Loera on 11-02-2022 Albumin BCG dye [Mass/Vol] 3.8 g/dL 3.5-5.7 [facility] Alkaline phosphatase [Enzyma tic activity/volume] in Serum or PlasmaOrdered By: Ana Maria Loera on 11-02-2022 ALP [Catalytic activity/Vol] 47 U/L 34-104 [facility] Aspartate aminotransferase [ Enzymatic activity/volume] in Serum or PlasmaOrdered By: Ana Maria Loera on 11-02-2022 AST [Catalytic activity/Vol] 11 U/L 13-39 [facility] Automated erythrocytes count in urine sediment (number/area)Ordered By: Ana Maria Loera on 11-02-2022 RBC Auto (Urine sed) [#/Area] Innumerable [HPF] 0-4 [facility] Automated leukocytes count i n urine sediment (number/area)Ordered By: Ana Maria Loera on 11-02-2022 WBC Auto (Urine sed) [#/Area] 10-19 [HPF] 0-4 [facility] Basophils Auto (Bld) [#/Vol] Ordered By: Ana Maria Loera on 11-02-2022 Basophils (Bld) [#/Vol] 0.0 10*3/uL 0.0-0.2 [facility] Basophils/100 WBC Auto (Bld) Ordered By: Ana Maria Loera on 11-02-2022 Basophils/100 WBC (Bld) 0.7 % . [facility] Bilirubin Test strip Ql (U)O rdered By: Ana Maria Loera on 11-02-2022 Bilirubin Ql (U) 1+ Negative [facility] Bilirubin.total [Mass/volume ] in Serum or PlasmaOrdered By: Ana Maria Loera on 11-02-2022 Bilirubin [Mass/Vol] 0.4 mg/dL 0.3-1.0 [facility] CT abdomen pelvis wo conon 0 11-02-2022 CT abdomen pelvis wo con [facility] Main [place] [address] [place], [place] [id number] CT Scan Report Signed Patient: Carmelita Eastman MR#: [id number] 07 : 1975 Acct:[id number] Age/Sex: 47 / M ADM Date: 11/02/22 Loc: ER Room: Type: PRE ER Attending Dr: Copies to: Ana Maria oLera APRN Ordering Provider: Ana Maria Loera APRN Date of Service: 11/02/22 CT/CT abdomen pelvis wo con: abdominal pain CT ABDOMEN AND PELVIS WITHOUT INTRAVENOUS CONTRAST: CLINICAL HISTORY: Known renal stone. Stent placed 3 weeks ago. Increasing pain. COMPARISON: CT abdomen and pelvis 10/30/2022 TECHNIQUE: Spiral images were obtained through the abdomen and pelvis without intravenous contrast. This CT exam was performed using one or more following dose reduction techniques: Automated exposure control, adjustment of the mA and/or kV according to patient size, or use of iterative reconstruction technique. FINDINGS: Lung Bases: [Mild atelectasis.] Organs:Suboptimal evaluation due to lack of IV contrast. Liver gallbladder spleen pancreas and adrenal glands all appear unremarkable. Left-sided ureteral stent is noted. No stone is seen along the course of the stent. Bilateral nephrolithiasis, largest measuring 7 mm involving the left kidney. Abdominal aorta appears normal in caliber.[ GI: Grossly unremarkable. Small bowel appears nondilated. No acute colonic abnormality.[Appendix is normal. Pelvis:[Urinary bladder and prostate gland appear grossly unremarkable.] Peritoneum/Retroperitoneu m:No free air, free fluid or lymphadenopathy.[ Abd wall/Bones:Abdominal wall demonstrates no acute findings. Fixation is seen involving the lumbosacral spine and SI joints. Neurostimulator device is in place.[ CT/CT abdomen pelvis wo con IMPRESSION: A left-sided double-J ureteral stent is noted. No stone is seen along the course of the stent. Bilateral nephrolithiasis, largest measuring 7 mm within the left kidney. Findings are similar to the prior study. Impression dictated by: Mk Puentes Jr., D.O.11/02/2022 3:05 PM Dictation Location: [place] [address] Transcribed By: [facility] 11/02/22 9452 Dictated By: Mk Puentes Jr, DO 11/02/22 1459 Signed By: 11/02/22 1505 Normal [facility] Calcium [Mass/volume] in Ser um or PlasmaOrdered By: Ana Maria Loera on 11-02-2022 Calcium [Mass/Vol] 8.9 mg/dL 8.6-10.3 [facility] Carbon dioxide, total [Moles /volume] in Serum or PlasmaOrdered By: Ana Maria Loera on 11-02-2022 CO2 [Moles/Vol] 28.3 mmol/L 21.0-31.0 [facility] Chloride [Moles/volume] in S rosi or PlasmaOrdered By: Ana Maria Leora on 11-02-2022 Chloride [Moles/Vol] 108 mmol/L 98-107 [facility] Color Auto (U)Ordered By: Ag Loera on 11-02-2022 Color (U) [place] Yellow [facility] Complete Blood Count Auto Di ffon 11-02-2022 Basophils (Bld) [#/Vol] 0.0 10*3/uL Normal 0.0-0.2 [facility] Comment on above: Result Comment: PERF ORMED BY: [place] [address] PATHOLOGIST CUTTING TABLE OPERATOR JERAMY DHALIWAL M.D. Performed By: #### C BC, LIPASE, CMP #### [facility] [address] Basophils/100 WBC (Bld) 0.7 % Normal . [facility] Comment on above: Performed By: #### C BC, LIPASE, CMP #### [facility] [address] [place] [address] [place] Eosinophils (Bld) [#/Vol] 0.2 10*3/uL Normal 0.0-0.45 [facility] Comment on above: Performed By: #### C BC, LIPASE, CMP #### [facility] [address] [place] [address] [place] Eosinophils/100 WBC (Bld) 3.2 % Normal . [facility] Comment on above: Performed By: #### C BC, LIPASE, CMP #### [address] Erythrocyte distribution width (RBC) [Ratio] 13.2 % Normal 12.0-14.8 [facility] Comment on above: Performed By: #### C BC, LIPASE, CMP #### [address] Hematocrit (Bld) [Volume fraction] 46.5 % Normal 38.8-50.0 [facility] Comment on above: Performed By: #### C BC, LIPASE, CMP #### [address] Hemoglobin (Bld) [Mass/Vol] 15.1 g/dL Normal 13.0-17.0 [facility] Comment on above: Performed By: #### C BC, LIPASE, CMP #### [address] Lymphocytes (Bld) [#/Vol] 1.9 10*3/uL Normal 1.00-4.8 [facility] Comment on above: Performed By: #### C BC, LIPASE, CMP #### [address] Lymphocytes/100 WBC (Bld) 25.3 % Normal . [facility] Comment on above: Performed By: #### C BC, LIPASE, CMP #### [address] MCH (RBC) [Entitic mass] 29.4 pg Normal 27.5-35.2 [facility] Comment on above: Performed By: #### C BC, LIPASE, CMP #### [address] MCV (RBC) [Entitic vol] 90.4 fL Normal 83.5-101 [facility] Comment on above: Performed By: #### C BC, LIPASE, CMP #### [address] Mean Corpuscular HGB Conc 32.5 g/dL Normal 32.5-35.6 [facility] Comment on above: Performed By: #### C BC, LIPASE, CMP #### [facility] [address] [place] [address] [place] Monocytes (Bld) [#/Vol] 0.6 10*3/uL Normal 0.0-0.8 [facility] Comment on above: Performed By: #### C BC, LIPASE, CMP #### [facility] [address] [place] [address] [place] Monocytes/100 WBC (Bld) 19.60 % Normal 0.00-20.00 [facility] Comment on above: Performed By: #### C BC, LIPASE, CMP #### [facility] [address] [place] [address] [place] Monocytes/100 WBC (Bld) 7.6 % Normal . [facility] Comment on above: Performed By: #### C BC, LIPASE, CMP #### [facility] [address] Neutrophils (Bld) [#/Vol] 4.6 10*3/uL Normal 1.8-7.7 [facility] Comment on above: Performed By: #### C BC, LIPASE, CMP #### [facility] [address] [place] [address] [place] Neutrophils/100 WBC (Bld) 63.2 % Normal . [facility] Comment on above: Performed By: #### C BC, LIPASE, CMP #### [facility] [address] [place] [address] [place] NRBC% 0.1 /100{WBC} Normal 0-0.5 [facility] Comment on above: Performed By: #### C BC, LIPASE, CMP #### [facility] [address] [place] [address] [place] Platelet mean volume (Bld) [Entitic vol] 7.8 fL Normal 6.6-10.1 [facility] Comment on above: Performed By: #### C BC, LIPASE, CMP #### [facility] [address] [place] [address] [place] Platelets (Bld) [#/Vol] 260 10*3/uL Normal 150-450 [facility] Comment on above: Performed By: #### C BC, LIPASE, CMP #### [address] RBC (Bld) [#/Vol] 5.15 10*6/uL Normal 3.90-5.60 [facility] Comment on above: Performed By: #### C BC, LIPASE, CMP #### [address] WBC (Bld) [#/Vol] 7.3 10*3/uL Normal 4.1-10.5 [facility] Comment on above: Performed By: #### C BC, LIPASE, CMP #### [address] Comprehensive Metabolic Pane narayan 11-02-2022 Albumin [Mass/Vol] 3.8 g/dL Normal 3.5-5.7 [facility] Comment on above: Performed By: #### C BC, LIPASE, CMP #### [address] Albumin/Globulin [Mass ratio] 1.6 {ratio} Normal [facility] Comment on above: Performed By: #### C BC, LIPASE, CMP #### [address] ALP [Catalytic activity/Vol] 47 U/L Normal 34-104 [facility] Comment on above: Performed By: #### C BC, LIPASE, CMP #### [address] ALT [Catalytic activity/Vol] 9 U/L Normal 7-52 [facility] Comment on above: Performed By: #### C BC, LIPASE, CMP #### [address] Anion gap [Moles/Vol] 9.1 mmol/L Normal 6.0-15.0 [facility] Comment on above: Performed By: #### C BC, LIPASE, CMP #### [address] AST [Catalytic activity/Vol] 11 U/L Low 13-39 [facility] Comment on above: Performed By: #### C BC, LIPASE, CMP #### [facility] [address] Bilirubin [Mass/Vol] 0.4 mg/dL Normal 0.3-1.0 [facility] Comment on above: Performed By: #### C BC, LIPASE, CMP #### [facility] [address] Calcium [Mass/Vol] 8.9 mg/dL Normal 8.6-10.3 [facility] Comment on above: Performed By: #### C BC, LIPASE, CMP #### [facility] [address] Chloride [Moles/Vol] 108 mmol/L High 98-107 [facility] Comment on above: Performed By: #### C BC, LIPASE, CMP #### [facility] [address] CO2 [Moles/Vol] 28.3 mmol/L Normal 21.0-31.0 [facility] Comment on above: Performed By: #### C BC, LIPASE, CMP #### [address] Creatinine [Mass/Vol] 1.01 mg/dL Normal 0.70-1.30 [facility] Comment on above: Performed By: #### C BC, LIPASE, CMP #### [facility] [address] Creatinine Clr Calc Pharmacy 109.84 [facility] Comment on above: Performed By: #### C BC, LIPASE, CMP #### [facility] [address] GFR/1.73 sq M.predicted MDRD (S/P/Bld) [Vol rate/Area] mL/min/{1.73_m2} [facility] Comment on above: Performed By: #### C BC, LIPASE, CMP #### [facility] [address] Globulin (S) [Mass/Vol] 2.4 g/dL Normal [facility] Comment on above: Performed By: #### C BC, LIPASE, CMP #### [facility] [address] Glucose [Mass/Vol] 97 mg/dL Normal 70-100 [facility] Comment on above: Result Comment: [facility] Glucose Reference Range is dependent on time and content of last meal. Glucose of more than 200 mg/dL in a nonstressed, ambulatory subject supports the diagnosis of Diabetes Mellitus. ADA recommended reference range Performed By: #### C BC, LIPASE, CMP #### [facility] [address] Potassium [Moles/Vol] 4.4 mmol/L Normal 3.5-5.1 [facility] Comment on above: Performed By: #### C BC, LIPASE, CMP #### [facility] [address] Protein [Mass/Vol] 6.2 g/dL Low 6.4-8.9 [facility] Comment on above: Performed By: #### C BC, LIPASE, CMP #### [facility] [address] Sodium [Moles/Vol] 141 mmol/L Normal 136-145 [facility] Comment on above: Performed By: #### C BC, LIPASE, CMP #### [facility] [address] Urea nitrogen [Mass/Vol] 12 mg/dL Normal 7-25 [facility] Comment on above: Performed By: #### C BC, LIPASE, CMP #### [facility] [address] [place] [address] [place] Creatinine [Mass/volume] in Serum or PlasmaOrdered By: Ana Maria Loera on 11-02-2022 Creatinine [Mass/Vol] 1.01 mg/dL 0.70-1.30 [facility] Dipstick and Microscopicon 0 11-02-2022 Appearance (U) Turbid Critically abnormal Clear [facility] Comment on above: Order Comment: Name Collection Type:: Clean-Voided Midstream Performed By: #### C UU, ADDONUAPLUS ####[place] [id number] [facility] Bacteria,Urine None Seen Normal None Seen [facility] Comment on above: Order Comment: Name Collection Type:: Clean-Voided Midstream Performed By: #### C UU, ADDONUAPLUS ####[address] Bilirubin,Urine 1+ High Negative [facility] Comment on above: Order Comment: Name Collection Type:: Clean-Voided Midstream Performed By: #### C UU, ADDONUAPLUS ####[address] Color (U) [place] Critically abnormal Yellow [facility] Comment on above: Order Comment: Name Collection Type:: Clean-Voided Midstream Performed By: #### C UU, ADDONUAPLUS ####[address] Glucose Ql (U) Normal Normal Normal [facility] Comment on above: Order Comment: Name Collection Type:: Clean-Voided Midstream Performed By: #### C UU, ADDONUAPLUS ####[address] Hyaline Casts,Urine 0-8 Normal 0-8 [facility] Comment on above: Order Comment: Name Collection Type:: Clean-Voided Midstream Result Comment: PERF ORMED BY: [facility] [address] [address] PATHOLOGIST CUTTING TABLE OPERATOR JERAMY DHALIWAL M.D. Performed By: #### C UU, ADDONUAPLUS ####[address] Ketones Ql (U) Trace High Negative [facility] Comment on above: Order Comment: Name Collection Type:: Clean-Voided Midstream Performed By: #### C UU, ADDONUAPLUS ####[address] Leukocyte esterase Test strip Ql (U) 2+ High Negative [facility] Comment on above: Order Comment: Name Collection Type:: Clean-Voided Midstream Performed By: #### C UU, ADDONUAPLUS ####[address] [address] [facility] Nitrite,Urine Negative Normal Negative [facility] Comment on above: Order Comment: Name Collection Type:: Clean-Voided Midstream Performed By: #### C UU, ADDONUAPLUS ####[place] [id number] [facility] Occult Blood,Urine 3+ High Negative [facility] Comment on above: Order Comment: Name Collection Type:: Clean-Voided Midstream Result Comment: PERF ORMED BY: [facility] [address] [address] PATHOLOGIST CUTTING TABLE OPERATOR JERAMY DHALIWAL M.D. Performed By: #### C UU, ADDONUAPLUS ####[place] [id number] [facility] pH (U) 6.5 [pH] Normal 5.0-9.0 [facility] Comment on above: Order Comment: Name Collection Type:: Clean-Voided Midstream Performed By: #### C UU, ADDONUAPLUS ####[address] [address] [facility] Protein (U) [Mass/Vol] 300 mg/dL High Negative [facility] Comment on above: Order Comment: Name Collection Type:: Clean-Voided Midstream Performed By: #### C UU, ADDONUAPLUS ####[address] [address] [facility] RBC,Urine Innumerable High 0-4 [facility] Comment on above: Order Comment: Name Collection Type:: Clean-Voided Midstream Performed By: #### C UU, ADDONUAPLUS ####[address] [address] [facility] Renal Epithelial Cells,Urine None Seen Normal 0-1 [facility] Comment on above: Order Comment: Name Collection Type:: Clean-Voided Midstream Performed By: #### C UU, ADDONUAPLUS ####[address] Specificy [place],Urine 1.025 Normal 1.001-1.03 0 [facility] Comment on above: Order Comment: Name Collection Type:: Clean-Voided Midstream Performed By: #### C UU, ADDONUAPLUS ####[address] [address] [facility] Squamous Epithelial Cell,Urine 3-4 High 0-2 [facility] Comment on above: Order Comment: Name Collection Type:: Clean-Voided Midstream Performed By: #### C UU, ADDONUAPLUS ####[address] Urobilinogen,Urine Normal Normal Normal [facility] Comment on above: Order Comment: Name Collection Type:: Clean-Voided Midstream Performed By: #### C UU, ADDONUAPLUS ####[address] [address] [facility] WBC,Urine 10-19 High 0-4 [facility] Comment on above: Order Comment: Name Collection Type:: Clean-Voided Midstream Performed By: #### C UU, ADDONUAPLUS ####[place] [id number] [facility] Eosinophils Auto (Bld) [#/Vo l]Ordered By: Ana Maria Loera on 11-02-2022 Eosinophils (Bld) [#/Vol] 0.2 10*3/uL 0.0-0.45 [facility] Eosinophils/100 WBC Auto (Bl d)Ordered By: Ana Maria Loera on 11-02-2022 Eosinophils/100 WBC (Bld) 3.2 % . [facility] Erythrocyte distribution wid th Auto (RBC) [Ratio]Ordered By: Ana Maria Loera on 11-02-2022 Erythrocyte distribution width (RBC) [Ratio] 13.2 % 12.0-14.8 [facility] Globulin Calc (S) [Mass/Vol] Ordered By: Ana Maria Loera on 11-02-2022 Globulin (S) [Mass/Vol] 2.4 g/dL [facility] Glucose [Mass/volume] in Ser um or PlasmaOrdered By: Ana Maria Loera on 11-02-2022 Glucose [Mass/Vol] 97 mg/dL 70-100 [facility] Comment on above: ADA recommended refe rence rangeRandom Glucose Reference Range is dependent on time and content of last meal. Glucose of more than 200 mg/dL in a nonstressed, ambulatory subject supports the diagnosis of Diabetes Mellitus. Hematocrit Auto (Bld) [Volum e fraction]Ordered By: Ana Maria Loera on 11-02-2022 Hematocrit (Bld) [Volume fraction] 46.5 % 38.8-50.0 [facility] Hemoglobin [Mass/volume] in BloodOrdered By: Ana Maria [facility] Hemoglobin (Bld) [Mass/Vol] 15.1 g/dL 13.0-17.0 [facility] Ketones Auto test strip (U) [Mass/Vol]Ordered By: Ana Maria Loera on 11-02-2022 Ketones (U) [Mass/Vol] Trace Negative [facility] Laboratory - UrinalysisOrder ed By: Ana Maria Loera on 11-02-2022 Hyaline casts LM Ql (Urine sed) 0-8 [LPF] 0-8 [facility] Lactate [Moles/volume] in Se rum or PlasmaOrdered By: Ana Maria Loera on 11-02-2022 Lactate [Moles/Vol] 1.1 mmol/L 0.5-2.2 [facility] Lactic Acidon 11-02-2022 Lactate [Moles/Vol] 1.1 mmol/L Normal 0.5-2.2 [facility] Comment on above: Result Comment: PERF ORMED BY: [place] [address] PATHOLOGIST CUTTING TABLE OPERATOR JERAMY DHALIWAL M.D. Performed By: #### L ACTIC #### [address] Leukocytes [#/volume] correc carl for nucleated erythrocytes in Blood by Automated counOrdered By: Ana Maria Loera on 11-02-2022 WBC corrected for nucl RBC Auto (Bld) [#/Vol] 7.3 10*3/uL 4.1-10.5 [facility] Lipaseon 11-02-2022 Lipase [Catalytic activity/Vol] 15.0 U/L Normal 11.0-82.0 [facility] Comment on above: Result Comment: PERF ORMED BY: [facility] [address] [place] [address] PATHOLOGIST CUTTING TABLE OPERATOR JERAMY DHALIWAL M.D. Performed By: #### C BC, LIPASE, CMP #### [address] Lipase [Enzymatic activity/v olume] in Serum or PlasmaOrdered By: Ana Maria Loera on 11-02-2022 Lipase [Catalytic activity/Vol] 15.0 U/L 11.0-82.0 [facility] Lymphocytes Auto (Bld) [#/Vo l]Ordered By: Ana Maria Loera on 11-02-2022 Lymphocytes (Bld) [#/Vol] 1.9 10*3/uL 1.00-4.8 [facility] Lymphocytes/100 WBC Auto (Bl d)Ordered By: Ana Maria Loera on 11-02-2022 Lymphocytes/100 WBC (Bld) 25.3 % . [facility] MCH Auto (RBC) [Entitic mass ]Ordered By: Ana Maria Loera on 11-02-2022 MCH (RBC) [Entitic mass] 29.4 pg 27.5-35.2 [facility] MCHC Auto (RBC) [Mass/Vol]Or dered By: Ana Maria Loera on 11-02-2022 MCHC (RBC) [Mass/Vol] 32.5 g/dL 32.5-35.6 [facility] MCV Auto (RBC) [Entitic vol] Ordered By: Ana Maria Loera on 11-02-2022 MCV (RBC) [Entitic vol] 90.4 fL 83.5-101 [facility] Monocyte distribution width [Entitic volume] in Blood by AutomatedOrdered By: Ana Maria Loera on 11-02-2022 Monocyte distribution width Auto (Bld) [Entitic vol] 19.60 % 0.00-20.00 [facility] Monocytes Auto (Bld) [#/Vol] Ordered By: Ana Maria Loera on 11-02-2022 Monocytes (Bld) [#/Vol] 0.6 10*3/uL 0.0-0.8 [facility] Monocytes/100 WBC Auto (Bld) Ordered By: Ana Maria Loera on 11-02-2022 Monocytes/100 WBC (Bld) 7.6 % . [facility] Neutrophils Auto (Bld) [#/Vo l]Ordered By: Ana Maria Loera on 11-02-2022 Neutrophils (Bld) [#/Vol] 4.6 10*3/uL 1.8-7.7 [facility] Neutrophils/100 WBC Auto (Bl d)Ordered By: Ana Maria Loera on 11-02-2022 Neutrophils/100 WBC (Bld) 63.2 % . [facility] Nitrite Test strip Ql (U)Ord ered By: Ana Maria Loera on 11-02-2022 Nitrite Ql (U) Negative Negative [facility] No Panel InformationOrdered By: Ana Maria Loera on 11-02-2022 Estimated GFR (CKD-EPI) > 60.0 mL/Min [facility] Creatinine Clearance (Chem 109.84 [facility] Nucleated erythrocytes [Pres ence] in Blood by Automated countOrdered By: Ana aMria Loera on 11-02-2022 Nucleated RBC Auto Ql (Bld) 0.1 /100{WBC} 0-0.5 [facility] Platelet mean volume Auto (B ld) [Entitic vol]Ordered By: Ana Maria Loera on 11-02-2022 Platelet mean volume (Bld) [Entitic vol] 7.8 fL 6.6-10.1 [facility] Platelets Auto (Bld) [#/Vol] Ordered By: Ana Maria Loera on 11-02-2022 Platelets (Bld) [#/Vol] 260 10*3/uL 150-450 [facility] Potassium [Moles/volume] in Serum or PlasmaOrdered By: Ana Maria Loera on 11-02-2022 Potassium [Moles/Vol] 4.4 mmol/L 3.5-5.1 [facility] Protein Auto test strip (U) [Mass/Vol]Ordered By: Ana Maria Loera on 11-02-2022 Protein (U) [Mass/Vol] 300 mg/dL Negative [facility] Protein [Mass/volume] in Ser um or PlasmaOrdered By: Ana Maria Loera on 11-02-2022 Protein [Mass/Vol] 6.2 g/dL 6.4-8.9 [facility] RBC Auto (Bld) [#/Vol]Ordere d By: Ana Maria Loera on 11-02-2022 RBC (Bld) [#/Vol] 5.15 10*6/uL 3.90-5.60 [facility] Serum or plasma albumin/glob ulin mass ratioOrdered By: Ana Maria Loera on 11-02-2022 Albumin/Globulin [Mass ratio] 1.6 {ratio} [facility] Serum or plasma anion gap de terminationOrdered By: Ana Maria Loera on 11-02-2022 Anion gap [Moles/Vol] 9.1 mmol/L 6.0-15.0 [facility] Sodium [Moles/volume] in Ser um or PlasmaOrdered By: Ana Maria Loera on 11-02-2022 Sodium [Moles/Vol] 141 mmol/L 136-145 [facility] Specific gravity Auto test s trip (U) [Rel density]Ordered By: Ana Maria Loera on 11-02-2022 Specific gravity (U) [Rel density] 1.025 1.001-1.03 0 [facility] Squamous epithelial cells de tection in urine sediment by light microscopyOrdered By: Ana Maria Loera on 11-02-2022 Epithelial cells.squamous LM Ql (Urine sed) 3-4 [HPF] 0-2 [facility] Urea nitrogen [Mass/volume] in Serum or PlasmaOrdered By: Ana Maria Loera on 11-02-2022 Urea nitrogen [Mass/Vol] 12 mg/dL 7-25 [facility] Urine Cultureon 11-02-2022 Bacteria identified Cx Nom (U) No Growth 2 Days PERFORMED BY: [facility] [address] [place] [address] PATHOLOGIST CUTTING TABLE OPERATOR JERAMY DHALIWAL M.D. [facility] Comment on above: Performed By: #### C UU, ADDONUAPLUS ####[facility] [id number] [place] [id number] [facility] Urine bacteria detection by automated methodOrdered By: Ana Maria Loera on 11-02-2022 Bacteria Auto Ql (U) None seen None Seen [facility] Urine clarity by refractomet ry automatedOrdered By: Ana Maria Loera on 11-02-2022 Clarity Refractometry automated (U) Turbid Clear [facility] Urine glucose measurement by automated test strip (mass/volume)Ordered By: Ana Maria Loera on 11-02-2022 Glucose Auto test strip (U) [Mass/Vol] Normal mg/dL Normal [facility] Urine hemoglobin detection b y automated test stripOrdered By: Ana Maria Loera on 11-02-2022 Hemoglobin Auto test strip Ql (U) 3+ Negative [facility] Urine leukocyte esterase det ection by automated test stripOrdered By: Ana Maria Loera on 11-02-2022 Leukocyte esterase Auto test strip Ql (U) 2+ Negative [facility] Urine sediment renal epithel ial cell count by microscopy (number/high power field)Ordered By: Ana Maria Loera on 11-02-2022 Epithelial cells.renal LM.HPF (Urine sed) [#/Area] None seen [HPF] 0-1 [facility] Urobilinogen Auto test strip (U) [Mass/Vol]Ordered By: Ana Maria Loera on 11-02-2022 Urobilinogen (U) [Mass/Vol] Normal mg/dL Normal [facility] WBC Auto (Bld) [#/Vol]Ordere d By: Ana Maria Loera on 11-02-2022 WBC (Bld) [#/Vol] 7.3 10*3/uL 4.1-10.5 [facility] pH Auto test strip (U)Ordere d By: Ana Maria Loera on 11-02-2022 pH (U) 6.5 [pH] 5.0-9.0 [facility] Alanine aminotransferase [En zymatic activity/volume] in Serum or PlasmaOrdered By: Sam Mccoy on 10-30-2022 ALT [Catalytic activity/Vol] 13 U/L 7-52 [facility] Albumin [Mass/volume] in Ser um or Plasma by Bromocresol green (BCG) dye binding methoOrdered By: Sam Mccoy on 10-30-2022 Albumin BCG dye [Mass/Vol] 4.3 g/dL 3.5-5.7 [facility] Alkaline phosphatase [Enzyma tic activity/volume] in Serum or PlasmaOrdered By: Sam Mccoy on 10-30-2022 ALP [Catalytic activity/Vol] 55 U/L 34-104 [facility] Aspartate aminotransferase [ Enzymatic activity/volume] in Serum or PlasmaOrdered By: Sam Mccoy on 10-30-2022 AST [Catalytic activity/Vol] 13 U/L 13-39 [facility] Automated erythrocytes count in urine sediment (number/area)Ordered By: Sam Mccoy on 10-30-2022 RBC Auto (Urine sed) [#/Area] Innumerable [HPF] 0-4 [facility] Automated leukocytes count i n urine sediment (number/area)Ordered By: Sam Mccoy on 10-30-2022 WBC Auto (Urine sed) [#/Area] 50-100 [HPF] 0-4 [facility] Basophils Auto (Bld) [#/Vol] Ordered By: Sam Mccoy on 10-30-2022 Basophils (Bld) [#/Vol] 0.1 10*3/uL 0.0-0.2 [facility] Basophils/100 WBC Auto (Bld) Ordered By: Sam Mccoy on 10-30-2022 Basophils/100 WBC (Bld) 0.7 % . [facility] Bilirubin Test strip Ql (U)O rdered By: Sam Mccoy on 10-30-2022 Bilirubin Ql (U) Negative Negative [facility] Bilirubin.total [Mass/volume ] in Serum or PlasmaOrdered By: Sam Mccoy on 10-30-2022 Bilirubin [Mass/Vol] 0.6 mg/dL 0.3-1.0 [facility] CT abdomen pelvis wo conon 0 10-30-2022 CT abdomen pelvis wo con [facility] Main [place] [address] [place] [address] CT Scan Report Signed Patient: Carmelita Eastman MR#: [id number] 07 : 1975 Acct:[id number] Age/Sex: 47 / M ADM Date: 10/30/22 Loc: ER Room: Type: [facility] ER Attending Dr: Copies to: Sam Mccoy Jr, MD Ordering Provider: Sam Mccoy Jr, MD Date of Service: 10/30/22 CT/CT abdomen pelvis wo con: Left flank pain, recent lithotripsy CT Abdomen and Pelvis withoutcontrast TECHNIQUE: Axial imaging with 2-D reconstruction. . The CT exam was performed using one or more the following dose reduction techniques: Automated exposure control, adjustment of the MA and/or Kv according to patient size, or use of the iterative reconstruction technique. COMPARISON: 12/29/21 History: LEFT flank and groin pain. Hematuria. LIMITATIONS: None LOWER THORAX Unremarkable LIVER: Borderline elongated prominence of the RIGHT lobe of liver. GALLBLADDER: No gallbladder abnormality identified. BILE DUCTS: No dilatation SPLEEN: Unremarkable PANCREAS: Unremarkable ADRENAL GLANDS: Unremarkable KIDNEYS:Multiple RIGHT renal calculi measuring up to 3 mm. Several LEFT renal stones measure up to 8 mm. No obstructive uropathy. LEFT ureteral stent present. AORTA: No abdominal aortic aneurysm identified. RETROPERITONEUM: No significant retroperitoneal abnormalities identified. MESENTERY:Unremarkable SMALL BOWEL: The small bowel loops are nondistended. APPENDIX: The appendix is normal. COLON: Diverticulosis of transverse colon. URINARY BLADDER: Mild wall thickening of the urinary bladder. REPRODUCTIVE SYSTEM: Mild enlargement prostate gland. PNEUMOPERITONEUM: None PERITONEAL FLUID:None BONY STRUCTURES: Degenerative changes of the spine. Spinal stimulator device. Fixation hardware of SI joints. ABDOMINAL WALL: Small RIGHT inguinal hernia contains fat. CT/CT abdomen pelvis wo con IMPRESSION: LEFT ureteral stent. No hydronephrosis. Bilateral nonobstructing renal calculi. Urinary bladder wall thickening. Consider underdistention versus cystitis. Impression dictated by: Dave Arnold M.D.10/30/2022 8:58 AM Dictation Location: [place] [address] Transcribed By: BLUE 10/30/2258 Dictated By: Dave Arnold DO 10/30/22 0852 Signed By: 10/30/22857 Normal [facility] Calcium [Mass/volume] in Ser um or PlasmaOrdered By: Sam Mccoy on 10-30-2022 Calcium [Mass/Vol] 9.1 mg/dL 8.6-10.3 [facility] Carbon dioxide, total [Moles /volume] in Serum or PlasmaOrdered By: Sam Mccoy on 10-30-2022 CO2 [Moles/Vol] 23.4 mmol/L 21.0-31.0 [facility] Chloride [Moles/volume] in S rosi or PlasmaOrdered By: Sam Mccoy on 10-30-2022 Chloride [Moles/Vol] 107 mmol/L 98-107 [facility] Color Auto (U)Ordered By: Ambrose Mccoy on 10-30-2022 Color (U) Red Yellow [facility] Complete Blood Count Auto Di ffon 10-30-2022 Basophils (Bld) [#/Vol] 0.1 10*3/uL Normal 0.0-0.2 [facility] Comment on above: Result Comment: PERF ORMED BY: [place] [address] PATHOLOGIST CUTTING TABLE OPERATOR JERAMY DHALIWAL M.D. Performed By: #### C MP, CBC #### [facility] [address] [place] [address] [place] Basophils/100 WBC (Bld) 0.7 % Normal . [facility] Comment on above: Performed By: #### C MP, CBC #### [facility] [address] [place] [address] [place] Eosinophils (Bld) [#/Vol] 0.2 10*3/uL Normal 0.0-0.45 [facility] Comment on above: Performed By: #### C MP, CBC #### [facility] [address] [place] [address] [place] Eosinophils/100 WBC (Bld) 2.2 % Normal . [facility] Comment on above: Performed By: #### C MP, CBC #### [facility] [address] Erythrocyte distribution width (RBC) [Ratio] 13.2 % Normal 12.0-14.8 [facility] Comment on above: Performed By: #### C MP, CBC #### [facility] [address] Hematocrit (Bld) [Volume fraction] 44.7 % Normal 38.8-50.0 [facility] Comment on above: Performed By: #### C MP, CBC #### [facility] [address] Hemoglobin (Bld) [Mass/Vol] 15.0 g/dL Normal 13.0-17.0 [facility] Comment on above: Performed By: #### C MP, CBC #### [address] Lymphocytes (Bld) [#/Vol] 2.8 10*3/uL Normal 1.00-4.8 [facility] Comment on above: Performed By: #### C MP, CBC #### [address] Lymphocytes/100 WBC (Bld) 31.5 % Normal . [facility] Comment on above: Performed By: #### C MP, CBC #### [address] MCH (RBC) [Entitic mass] 30.1 pg Normal 27.5-35.2 [facility] Comment on above: Performed By: #### C MP, CBC #### [place] [address] [place] MCV (RBC) [Entitic vol] 89.5 fL Normal 83.5-101 [facility] Comment on above: Performed By: #### C MP, CBC #### [facility] [address] Mean Corpuscular HGB Conc 33.6 g/dL Normal 32.5-35.6 [facility] Comment on above: Performed By: #### C MP, CBC #### [facility] [address] [place] [address] [place] Monocytes (Bld) [#/Vol] 0.6 10*3/uL Normal 0.0-0.8 [facility] Comment on above: Performed By: #### C MP, CBC #### [facility] [address] Monocytes/100 WBC (Bld) 18.04 % Normal 0.00-20.00 [facility] Comment on above: Performed By: #### C MP, CBC #### [facility] [address] Monocytes/100 WBC (Bld) 6.5 % Normal . [facility] Comment on above: Performed By: #### C MP, CBC #### [address] Neutrophils (Bld) [#/Vol] 5.2 10*3/uL Normal 1.8-7.7 [facility] Comment on above: Performed By: #### C MP, CBC #### [address] Neutrophils/100 WBC (Bld) 59.1 % Normal . [facility] Comment on above: Performed By: #### C MP, CBC #### [address] NRBC% 0.1 /100{WBC} Normal 0-0.5 [facility] Comment on above: Performed By: #### C MP, CBC #### [facility] [address] [place] [address] [place] Platelet mean volume (Bld) [Entitic vol] 7.5 fL Normal 6.6-10.1 [facility] Comment on above: Performed By: #### C MP, CBC #### [facility] [address] [place] [address] [place] Platelets (Bld) [#/Vol] 266 10*3/uL Normal 150-450 [facility] Comment on above: Performed By: #### C MP, CBC #### [place] [address] [place] RBC (Bld) [#/Vol] 5.00 10*6/uL Normal 3.90-5.60 [facility] Comment on above: Performed By: #### C MP, CBC #### [facility] [address] WBC (Bld) [#/Vol] 8.8 10*3/uL Normal 4.1-10.5 [facility] Comment on above: Performed By: #### C MP, CBC #### [facility] [address] Comprehensive Metabolic Pane narayan 10-30-2022 Albumin [Mass/Vol] 4.3 g/dL Normal 3.5-5.7 [facility] Comment on above: Performed By: #### C MP, CBC #### [address] Albumin/Globulin [Mass ratio] 1.5 {ratio} Normal [facility] Comment on above: Performed By: #### C MP, CBC #### [facility] [address] ALP [Catalytic activity/Vol] 55 U/L Normal 34-104 [facility] Comment on above: Performed By: #### C MP, CBC #### [address] ALT [Catalytic activity/Vol] 13 U/L Normal 7-52 [facility] Comment on above: Performed By: #### C MP, CBC #### [address] Anion gap [Moles/Vol] 11.4 mmol/L Normal 6.0-15.[address] [facility] Comment on above: Performed By: #### C MP, CBC #### [address] AST [Catalytic activity/Vol] 13 U/L Normal 13-39 [facility] Comment on above: Performed By: #### C MP, CBC #### [place] [address] [place] Bilirubin [Mass/Vol] 0.6 mg/dL Normal 0.3-1.0 [facility] Comment on above: Performed By: #### C MP, CBC #### [facility] [address] Calcium [Mass/Vol] 9.1 mg/dL Normal 8.6-10.3 [facility] Comment on above: Performed By: #### C MP, CBC #### [facility] [address] Chloride [Moles/Vol] 107 mmol/L Normal 98-107 [facility] Comment on above: Performed By: #### C MP, CBC #### [facility] [address] CO2 [Moles/Vol] 23.4 mmol/L Normal 21.0-31.0 [facility] Comment on above: Performed By: #### C MP, CBC #### [facility] [address] Creatinine [Mass/Vol] 1.03 mg/dL Normal 0.70-1.30 [facility] Comment on above: Performed By: #### C MP, CBC #### [facility] [address] Creatinine Clr Calc Pharmacy 105.52 [facility] Comment on above: Result Comment: PERF ORMED BY: [place] [address] PATHOLOGIST CUTTING TABLE OPERATOR JERAMY DHALIWAL M.D. Performed By: #### C MP, CBC #### [facility] [address] [place] [address] [place] GFR/1.73 sq M.predicted MDRD (S/P/Bld) [Vol rate/Area] mL/min/{1.73_m2} [facility] Comment on above: Performed By: #### C MP, CBC #### [facility] [address] Globulin (S) [Mass/Vol] 2.8 g/dL [facility] Comment on above: Performed By: #### C MP, CBC #### [facility] [address] [place] [address] [place] Glucose [Mass/Vol] 100 mg/dL Normal 70-100 [facility] Comment on above: Result Comment: [facility] Glucose Reference Range is dependent on time and content of last meal. Glucose of more than 200 mg/dL in a nonstressed, ambulatory subject supports the diagnosis of Diabetes Mellitus. ADA recommended reference range Performed By: #### C MP, CBC #### [facility] [address] Potassium [Moles/Vol] 3.8 mmol/L Normal 3.5-5.1 [facility] Comment on above: Performed By: #### C MP, CBC #### [facility] [address] Protein [Mass/Vol] 7.1 g/dL Normal 6.4-8.9 [facility] Comment on above: Performed By: #### C MP, CBC #### [facility] [address] [place] [address] [place] Sodium [Moles/Vol] 138 mmol/L Normal 136-145 [facility] Comment on above: Performed By: #### C MP, CBC #### [facility] [address] [place] [address] [place] Urea nitrogen [Mass/Vol] 12 mg/dL Normal 7-25 [facility] Comment on above: Performed By: #### C MP, CBC #### [facility] [address] [place] [address] [place] Creatinine [Mass/volume] in Serum or PlasmaOrdered By: Sam Mccoy on 10-30-2022 Creatinine [Mass/Vol] 1.03 mg/dL 0.70-1.30 [facility] Dipstick and Microscopicon 0 10-30-2022 Appearance (U) Clear Normal Clear [facility] Comment on above: Order Comment: Name Collection Type:: Clean-Voided Midstream Performed By: #### A DDONUACHEPE, KJU ####[facility] [id number] [place] [address] [facility] Bacteria,Urine None Seen Normal None Seen [facility] Comment on above: Order Comment: Name Collection Type:: Clean-Voided Midstream Performed By: #### A DDONUAPLUS, CUU ####[address] [address] [place] Bilirubin,Urine Negative Normal Negative [facility] Comment on above: Order Comment: Name Collection Type:: Clean-Voided Midstream Performed By: #### A DDONUAPLUS, CUU ####[address] [address] [facility] Color (U) Red Critically abnormal Yellow [facility] Comment on above: Order Comment: Name Collection Type:: Clean-Voided Midstream Performed By: #### A DDONUAPLUS, CUU ####[address] [address] [facility] Glucose Ql (U) Normal Normal Normal [facility] Comment on above: Order Comment: Name Collection Type:: Clean-Voided Midstream Performed By: #### A DDONUAPLUS, CUU ####[address] [address] [place] Hyaline Casts,Urine 0-8 Normal 0-8 [facility] Comment on above: Order Comment: Name Collection Type:: Clean-Voided Midstream Result Comment: PERF ORMED BY: [facility] [address] [place] [address] PATHOLOGIST CUTTING TABLE OPERATOR JERAMY DHALIWAL M.D. Performed By: #### A DDONUAPLUS, CUU ####[address] [address] [place] Ketones Ql (U) Negative Normal Negative [facility] Comment on above: Order Comment: Name Collection Type:: Clean-Voided Midstream Performed By: #### A DDONUAPLUS, CUU ####[address] [address] [facility] Leukocyte esterase Test strip Ql (U) 3+ High Negative [facility] Comment on above: Order Comment: Name Collection Type:: Clean-Voided Midstream Performed By: #### A DDONUAPLUS, CUU ####[address] [address] [place] Nitrite,Urine Negative Normal Negative [facility] Comment on above: Order Comment: Name Collection Type:: Clean-Voided Midstream Performed By: #### A DDONUAPLUS, CUU ####[place] [id number] [facility] Occult Blood,Urine 3+ High Negative [facility] Comment on above: Order Comment: Name Collection Type:: Clean-Voided Midstream Result Comment: PERF ORMED BY: [facility] [address] [place] [address] PATHOLOGIST CUTTING TABLE OPERATOR JERAMY DHALIWAL M.D. Performed By: #### A DDONUAPLUS, CUU ####[place] [id number] [facility] pH (U) 6.0 [pH] Normal 5.0-9.0 [facility] Comment on above: Order Comment: Name Collection Type:: Clean-Voided Midstream Performed By: #### A DDONUAPLUS, CUU ####[place] [id number] [facility] Protein (U) [Mass/Vol] 100 mg/dL High Negative [facility] Comment on above: Order Comment: Name Collection Type:: Clean-Voided Midstream Performed By: #### A DDONUAPLUS, CUU ####[place] [id number] [facility] RBC,Urine Innumerable High 0-4 [facility] Comment on above: Order Comment: Name Collection Type:: Clean-Voided Midstream Performed By: #### A DDONUAPLUS, CUU ####[place] [id number] [facility] Specificy [place],Urine 1.010 Normal 1.001-1.03 0 [facility] Comment on above: Order Comment: Name Collection Type:: Clean-Voided Midstream Performed By: #### A DDONUAPLUS, CUU ####[facility] [id number] [place] [address] [facility] Squamous Epithelial Cell,Urine None Seen Normal 0-2 [facility] Comment on above: Order Comment: Name Collection Type:: Clean-Voided Midstream Performed By: #### A DDONUAPLUS, CUU ####[facility] [id number] [place] [address] [facility] Urobilinogen,Urine Normal Normal Normal [facility] Comment on above: Order Comment: Name Collection Type:: Clean-Voided Midstream Performed By: #### A DDONUAPLUS, CUU ####[place] [id number] [place] [address] [facility] WBC,Urine 50-100 High 0-4 [facility] Comment on above: Order Comment: Name Collection Type:: Clean-Voided Midstream Performed By: #### A DDONUAPLUS, CUU ####[place] [id number] [place] [id number] [facility] Eosinophils Auto (Bld) [#/Vo l]Ordered By: Sam Mccoy on 10-30-2022 Eosinophils (Bld) [#/Vol] 0.2 10*3/uL 0.0-0.45 [facility] Eosinophils/100 WBC Auto (Bl d)Ordered By: Sam Mccoy on 10-30-2022 Eosinophils/100 WBC (Bld) 2.2 % . [facility] Erythrocyte distribution wid th Auto (RBC) [Ratio]Ordered By: Sam Mccoy on 10-30-2022 Erythrocyte distribution width (RBC) [Ratio] 13.2 % 12.0-14.8 [facility] Globulin Calc (S) [Mass/Vol] Ordered By: Sam Mccoy on 10-30-2022 Globulin (S) [Mass/Vol] 2.8 g/dL [facility] Glucose [Mass/volume] in Ser um or PlasmaOrdered By: Sam Mccoy on 10-30-2022 Glucose [Mass/Vol] 100 mg/dL 70-100 [facility] Comment on above: ADA recommended refe rence rangeRandom Glucose Reference Range is dependent on time and content of last meal. Glucose of more than 200 mg/dL in a nonstressed, ambulatory subject supports the diagnosis of Diabetes Mellitus. Hematocrit Auto (Bld) [Volum e fraction]Ordered By: Sam Mccoy on 10-30-2022 Hematocrit (Bld) [Volume fraction] 44.7 % 38.8-50.0 [facility] Hemoglobin [Mass/volume] in BloodOrdered By: Sam Mccoy on 10-30-2022 Hemoglobin (Bld) [Mass/Vol] 15.0 g/dL 13.0-17.0 [facility] Ketones Auto test strip (U) [Mass/Vol]Ordered By: Sam Mccoy on 10-30-2022 Ketones (U) [Mass/Vol] Negative Negative [facility] - UrinalysisOrder ed By: Sam Mccoy on 10-30-2022 Hyaline casts LM Ql (Urine sed) 0-8 [LPF] 0-8 [facility] Leukocytes [#/volume] correc carl for nucleated erythrocytes in Blood by Automated counOrdered By: Sam Mccoy on 10-30-2022 WBC corrected for nucl RBC Auto (Bld) [#/Vol] 8.8 10*3/uL 4.1-10.5 [facility] Lymphocytes Auto (Bld) [#/Vo l]Ordered By: Sam Mccoy on 10-30-2022 Lymphocytes (Bld) [#/Vol] 2.8 10*3/uL 1.00-4.8 [facility] Lymphocytes/100 WBC Auto (Bl d)Ordered By: Sam Mccoy on 10-30-2022 Lymphocytes/100 WBC (Bld) 31.5 % . [facility] MCH Auto (RBC) [Entitic mass ]Ordered By: Sam Mccoy on 10-30-2022 MCH (RBC) [Entitic mass] 30.1 pg 27.5-35.2 [facility] MCHC Auto (RBC) [Mass/Vol]Or dered By: Sam Mccoy on 10-30-2022 MCHC (RBC) [Mass/Vol] 33.6 g/dL 32.5-35.6 [facility] MCV Auto (RBC) [Entitic vol] Ordered By: Sam Mccoy on 10-30-2022 MCV (RBC) [Entitic vol] 89.5 fL 83.5-101 [facility] Monocyte distribution width [Entitic volume] in Blood by AutomatedOrdered By: Sam Mccoy on 10-30-2022 Monocyte distribution width Auto (Bld) [Entitic vol] 18.04 % 0.00-20.00 [facility] Monocytes Auto (Bld) [#/Vol] Ordered By: Sam Mccoy on 10-30-2022 Monocytes (Bld) [#/Vol] 0.6 10*3/uL 0.0-0.8 [facility] Monocytes/100 WBC Auto (Bld) Ordered By: Sam Mccoy on 10-30-2022 Monocytes/100 WBC (Bld) 6.5 % . [facility] Neutrophils Auto (Bld) [#/Vo l]Ordered By: Sam Mccoy on 10-30-2022 Neutrophils (Bld) [#/Vol] 5.2 10*3/uL 1.8-7.7 [facility] Neutrophils/100 WBC Auto (Bl d)Ordered By: Sam Mccoy on 10-30-2022 Neutrophils/100 WBC (Bld) 59.1 % . [facility] Nitrite Test strip Ql (U)Ord ered By: Sam Mccoy on 10-30-2022 Nitrite Ql (U) Negative Negative [facility] No Panel InformationOrdered By: Sam Mccoy on 10-30-2022 Estimated GFR (CKD-EPI) > 60.0 mL/Min [facility] Creatinine Clearance (Chem 105.52 [facility] Nucleated erythrocytes [Pres ence] in Blood by Automated countOrdered By: Sam Mccoy on 10-30-2022 Nucleated RBC Auto Ql (Bld) 0.1 /100{WBC} 0-0.5 [facility] Platelet mean volume Auto (B ld) [Entitic vol]Ordered By: Sam Mccoy on 10-30-2022 Platelet mean volume (Bld) [Entitic vol] 7.5 fL 6.6-10.1 [facility] Platelets Auto (Bld) [#/Vol] Ordered By: Sam Mccoy on 10-30-2022 Platelets (Bld) [#/Vol] 266 10*3/uL 150-450 [facility] Potassium [Moles/volume] in Serum or PlasmaOrdered By: Sam Mccoy on 10-30-2022 Potassium [Moles/Vol] 3.8 mmol/L 3.5-5.1 [facility] Protein Auto test strip (U) [Mass/Vol]Ordered By: Sam Mccoy on 10-30-2022 Protein (U) [Mass/Vol] 100 mg/dL Negative [facility] Protein [Mass/volume] in Ser um or PlasmaOrdered By: Sam Mccoy on 10-30-2022 Protein [Mass/Vol] 7.1 g/dL 6.4-8.9 [facility] RBC Auto (Bld) [#/Vol]Ordere d By: Sam Mccoy on 10-30-2022 RBC (Bld) [#/Vol] 5.00 10*6/uL 3.90-5.60 [facility] Serum or plasma albumin/glob ulin mass ratioOrdered By: Sam Mccoy on 10-30-2022 Albumin/Globulin [Mass ratio] 1.5 {ratio} [facility] Serum or plasma anion gap de terminationOrdered By: Sam Mccoy on 10-30-2022 Anion gap [Moles/Vol] 11.4 mmol/L 6.0-15.[address] [facility] Sodium [Moles/volume] in Ser um or PlasmaOrdered By: Sam Mccoy on 10-30-2022 Sodium [Moles/Vol] 138 mmol/L 136-145 [facility] Specific gravity Auto test s trip (U) [Rel density]Ordered By: Sam Mccoy on 10-30-2022 Specific gravity (U) [Rel density] 1.010 1.001-1.03 0 [facility] Squamous epithelial cells de tection in urine sediment by light microscopyOrdered By: Sam Mccoy on 10-30-2022 Epithelial cells.squamous LM Ql (Urine sed) None seen [HPF] 0-2 [facility] Urea nitrogen [Mass/volume] in Serum or PlasmaOrdered By: Sam Mccoy on 10-30-2022 Urea nitrogen [Mass/Vol] 12 mg/dL 7-25 [facility] Urine Cultureon 10-30-2022 Bacteria identified Cx Nom (U) No Growth 2 Days PERFORMED BY: [facility] [address] [place] [address] PATHOLOGIST CUTTING TABLE OPERATOR JERAMY DHALIWAL M.D. Normal [facility] Comment on above: Performed By: #### A DDONUAPLUS, CUU ####[facility] [id number] [place] [address] [facility] Urine bacteria detection by automated methodOrdered By: Sam Mccoy on 10-30-2022 Bacteria Auto Ql (U) None seen None Seen [facility] Urine clarity by refractomet ry automatedOrdered By: Sam Mccoy on 10-30-2022 Clarity Refractometry automated (U) Clear Clear [facility] Urine culture routineOrdered By: Sam Mccoy on 10-30-2022 Bacteria identified Cx Nom (U) No Growth 2 Days [facility] Urine glucose measurement by automated test strip (mass/volume)Ordered By: Sam Mccoy on 10-30-2022 Glucose Auto test strip (U) [Mass/Vol] Normal mg/dL Normal [facility] Urine hemoglobin detection b y automated test stripOrdered By: Sam Mccoy on 10-30-2022 Hemoglobin Auto test strip Ql (U) 3+ Negative [facility] Urine leukocyte esterase det ection by automated test stripOrdered By: Sam Mccoy on 10-30-2022 Leukocyte esterase Auto test strip Ql (U) 3+ Negative [facility] Urobilinogen Auto test strip (U) [Mass/Vol]Ordered By: Sam Mccoy on 10-30-2022 Urobilinogen (U) [Mass/Vol] Normal mg/dL Normal [facility] WBC Auto (Bld) [#/Vol]Ordere d By: Sam Mccoy on 10-30-2022 WBC (Bld) [#/Vol] 8.8 10*3/uL 4.1-10.5 [facility] pH Auto test strip (U)Ordere d By: Sam Mccoy on 10-30-2022 pH (U) 6.0 [pH] 5.0-9.0 [facility] OPERATIVE REPORTon OPERATIVE REPORT [address] [address] OPERATIVE REPORT PATIENT NAME: CARMELITA EASTMAN : 1975 MED REC NO: [id number] ROOM: ACCOUNT NO: [id number] ADMIT DATE: 10/23/2022 PROVIDER: Fara López MD DATE OF PROCEDURE: 10/23/2022 PREOPERATIVE DIAGNOSIS: Left proximal ureteral stone 4-5 mm in size. POSTOPERATIVE DIAGNOSIS: Left proximal ureteral stone 4-5 mm in size. PROCEDURE PERFORMED: Left extracorporal shockwave lithotripsy. SURGEON: Fara López MD ANESTHESIA: General. ESTIMATED BLOOD LOSS: Minimal. COMPLICATIONS: None. CONDITION: Stable to recovery room. BRIEF CLINICAL NOTE: A 47-year-old male with history of depression, chronic back pain seeing pain management in the past for this, who was found to have a left proximal ureteral stone. He underwent cystoscopy with stent insertion for this on 10/06/2022 for intractable pain. He was seen back in followup. The stone was noted to be located in the proximal ureter. Treatment options were discussed. He elected proceed with lithotripsy. Lithotripsy had worked well for his stones in the past. He understood the risks and benefits of planned procedure as outlined preoperatively and is willing to proceed as planned. A time-out was held at the beginning of the case. Discussion with the patient was held at the beginning of the case and family at the end of the case. OPERATIVE PROCEDURE: The patient was brought to the operating room with an informed consent signed, IV running. After successful induction of general anesthesia, he had been given 1 gm of IV Rocephin and sequential compression device has been placed on his lower extremities prior induction of general anesthesia. At this point, under fluoroscopic visualization, the stone was identified in two fluoroscopic planes. Shockwave lithotripsy commenced at a power level of 1 and advanced a power level of an 8, a total of 2500 shockwaves were given at a shock rate of 60 shocks per minute with what appeared to be partial stone fragmentation. There was a pause in lithotripsy at 500 shocks for 3 minutes. The patient does understand the possible need for repeat lithotripsy or further treatment of the stone should the stone not have fragmented or the fragments not have passed. He tolerated the procedure well without any complication, awoken from anesthesia and taken to recovery room in stable condition. He will follow up in my office as scheduled for postoperative KUB. FARA LÓPEZ MD /[id number] Doc#: [id number] CC: Fara López MD Normal [facility] XR ABDOMEN (KUB) (SINGLE AP VIEW)on 10-10-2022 XR ABDOMEN (KUB) (SINGLE AP VIEW) EXAMINATION: ONE SUPINE XRAY VIEW(S) OF THE ABDOMEN 10/10/2022 8:27 am COMPARISON: 01/27/2022. HISTORY: ORDERING SYSTEM PROVIDED HISTORY: Left nephrolithiasis TECHNOLOGIST PROVIDED HISTORY: Reason for exam:->KUB @ 830AM BEFORE APPT WITH 10-10-22 What reading provider will be dictating this exam?->CRC FINDINGS: There are calculi measuring up to 7 mm in the left kidney. There is a left ureteral stent. There is another 7 mm calculus adjacent to the stent in the proximal left ureter. The bowel gas pattern is nonspecific and nonobstructive. There is a moderate amount of stool in the colon. A dorsal stimulator is present. There are postsurgical changes involving the lumbosacral spine and both sacroiliac joints. IMPRESSION: Left nephrolithiasis. Left ureteral stent and proximal left ureteral calculus. Interpreted by: Elijah Rueda MD Signed by: Elijah Rueda MD 10/11/[address] [facility] Basic Metabolic Panelon 09-28 Anion gap [Moles/Vol] 8 mmol/L Low 9-15 [facility] Comment on above: Performed By: #### T RP5 #### [facility] [address] [place] [address] Calcium [Mass/Vol] 8.4 mg/dL Low 8.5-9.9 [facility] Comment on above: Performed By: #### T RP5 #### [facility] [address] [place] [address] Chloride [Moles/Vol] 106 mmol/L Normal 95-107 [facility] Comment on above: Performed By: #### T RP5 #### [facility] [address] [place] [address] CO2 [Moles/Vol] 25 mmol/L Normal 20-31 [facility] Comment on above: Performed By: #### T RP5 #### [facility] [address] [place] [address] Creatinine [Mass/Vol] 0.97 mg/dL Normal 0.70-1.20 [facility] Comment on above: Performed By: #### T RP5 #### [facility] [address] [place] [address] GFR >60.0 Normal >60 [facility] Comment on above: Result Comment: Pedi atric calculator link https://www.kidney.org/professionals/kdoqi/gfr_calculatorped Effective Jan 30, 2022 These results are not intended for use in patients <18 years of age. eGFR results are calculated without a race factor using the 2020 CKD-EPI equation. Careful clinical correlation is recommended, particularly when comparing to results calculated using previous equations. The CKD-EPI equation is less accurate in patients with extremes of muscle mass, extra-renal metabolism of creatinine, excessive creatinine ingestion, or following therapy that affects renal tubular secretion. Performed By: #### T RP5 #### [facility] [address] [place] [address] Glucose [Mass/Vol] 80 mg/dL Normal 70-99 [facility] Comment on above: Performed By: #### T RP5 #### [facility] [address] [place] [address] Potassium [Moles/Vol] 4.4 mmol/L Normal 3.4-4.9 [facility] Comment on above: Performed By: #### T RP5 #### [facility] [address] [place] [address] Sodium [Moles/Vol] 139 mmol/L Normal 135-144 [facility] Comment on above: Performed By: #### T RP5 #### [facility] [address] [place] [address] Urea nitrogen [Mass/Vol] 10 mg/dL Normal 6-20 [facility] Comment on above: Performed By: #### T RP5 #### [facility] [address] [place] [address] CBC With Platelet and Differ entialon 10-09-2022 Basophils (Bld) [#/Vol] 0.1 10*3/uL Normal 0.0-0.2 [facility] Comment on above: Performed By: #### C BCWD #### [facility] [address] [place] [address] Basophils/100 WBC (Bld) 0.8 % Normal [facility] Comment on above: Performed By: #### C BCWD #### [facility] [address] [place] [address] Eosinophils (Bld) [#/Vol] 0.3 10*3/uL Normal 0.0-0.7 [facility] Comment on above: Performed By: #### C BCWD #### [facility] [address] [place] [address] Eosinophils/100 WBC (Bld) 4.1 % Normal [facility] Comment on above: Performed By: #### C BCWD #### [facility] [address] [place] [address] Erythrocyte distribution width (RBC) [Ratio] 13.3 % Normal 11.5-14.5 [facility] Comment on above: Performed By: #### C BCWD #### [facility] [address] [place] [address] Hematocrit (Bld) [Volume fraction] 44.0 % Normal 42.0-52.0 [facility] Comment on above: Performed By: #### C BCWD #### [facility] [address] [place] [address] Hemoglobin (Bld) [Mass/Vol] 14.4 g/dL Normal 14.0-18.0 [facility] Comment on above: Performed By: #### C BCWD #### [facility] [address] [place] [address] Lymphocytes (Bld) [#/Vol] 2.6 10*3/uL Normal 1.0-4.8 [facility] Comment on above: Performed By: #### C BCWD #### [facility] [address] [place] [address] Lymphocytes/100 WBC (Bld) 40.6 % Normal [facility] Comment on above: Performed By: #### C BCWD #### [facility] [address] [place] [address] MCH (RBC) [Entitic mass] 30.0 pg Normal 27.0-31.3 [facility] Comment on above: Performed By: #### C BCWD #### [facility] [address] [place] [address] MCHC 32.7 % Low 33.0-37.0 [facility] Comment on above: Performed By: #### C BCWD #### [facility] [address] [place] [address] MCV (RBC) [Entitic vol] 91.7 fL Normal 79.0-92.2 [facility] Comment on above: Performed By: #### C BCWD #### [facility] [address] [place] [address] Monocytes (Bld) [#/Vol] 0.5 10*3/uL Normal 0.2-0.8 [facility] Comment on above: Performed By: #### C BCWD #### [facility] [address] [place] [address] Monocytes/100 WBC (Bld) 7.2 % Normal [facility] Comment on above: Performed By: #### C BCWD #### [facility] [address] [place] [address] Neutrophils (Bld) [#/Vol] 3.0 10*3/uL Normal 1.4-6.5 [facility] Comment on above: Performed By: #### C BCWD #### [facility] [address] [place] [address] Neutrophils/100 WBC (Bld) 47.3 % Normal [facility] Comment on above: Performed By: #### C BCWD #### [facility] [address] [place] [address] Platelets (Bld) [#/Vol] 236 10*3/uL Normal 130-400 [facility] Comment on above: Performed By: #### C BCWD #### [facility] [address] [place] [address] RBC (Bld) [#/Vol] 4.80 10*6/uL Normal 4.70-6.10 [facility] Comment on above: Performed By: #### C BCWD #### [facility] [address] [place] [address] WBC (Bld) [#/Vol] 6.3 10*3/uL Normal 4.8-10.8 [facility] Comment on above: Performed By: #### C BCWD #### [facility] [address] [place] [address] CT ABDOMEN PELVIS WO CONTRAS Ton 10-08-2022 CT ABDOMEN PELVIS WO CONTRAST EXAMINATION: CT OF THE ABDOMEN AND PELVIS WITHOUT CONTRAST 10/08/2022 9:14 am TECHNIQUE: CT of the abdomen and pelvis was performed without the administration of intravenous contrast. Multiplanar reformatted images are provided for review. Automated exposure control, iterative reconstruction, and/or weight based adjustment of the mA/kV was utilized to reduce the radiation dose to as low as reasonably achievable. COMPARISON: October 06, 2022 HISTORY: ORDERING SYSTEM PROVIDED HISTORY: Lt ureter stone S/P stenting. Persistent pain, r/o stent migration or extravasation or other complications. TECHNOLOGIST PROVIDED HISTORY: Reason for exam:->Lt ureter stone S/P stenting. Persistent pain, r/o stent migration or extravasation or other complications. Additional Contrast?->None What reading provider will be dictating this exam?->CRC FINDINGS: Lower Chest: Visualized portion of the lower chest demonstrates no acute abnormality. There is a partially imaged thoracic nerve lead. Organs: The unenhanced liver and gallbladder are normal in appearance. The spleen and adrenal glands are normal in size. The unenhanced pancreas is normal in appearance. There are multiple punctate right renal calculi without evidence of right-sided hydronephrosis. A 6 mm calculus in the mid left kidney is present. No left-sided hydronephrosis. A double-J left ureteral stent is well positioned. A 5 mm calculus in the proximal left ureter is not changed in position. No evidence of a perinephric or periureteral hematoma or fluid collection. GI/Bowel: No evidence of a bowel obstruction, free air or pneumatosis. Portions of the colon are decompressed, limiting assessment for mucosal based abnormalities. There is diverticulosis without evidence of diverticulitis. The stomach is distended without obvious abnormality. A moderate amount of stool is present in the majority of the colon. The appendix is not confidently visualized but there are no focal pericecal inflammatory changes to suggest acute appendicitis. Pelvis: Urinary bladder is distended and contains a tiny locule of intraluminal gas, likely related to recent instrumentation. The distal margin of the double-J ureteral stent is well positioned within the bladder lumen. The prostate gland is not enlarged. No pelvic lymphadenopathy or free fluid in the pelvis. Peritoneum/Retroperitoneu m: The abdominal aorta is normal in caliber. No retroperitoneal lymphadenopathy or mass. Bones/Soft Tissues: No acute osseous abnormality or evidence of an aggressive osseous lesion. Orthopedic hardware is noted transfixing the bilateral sacroiliac joints as well as posterior fusion of the lower lumbar spine. IMPRESSION: Well-positioned left ureteral stent with unchanged positioning of a 5 mm proximal left ureteral calculus. No left-sided hydronephrosis, perinephric or periureteral fluid collection. Stable, incidental findings as above. Interpreted by: Leif Herrmann MD Signed by: Leif Herrmann MD 10/08/[address] [facility] Basic Metabolic Panelon 06-1 0-2022 Anion gap [Moles/Vol] 11 mmol/L Normal 9-15 [facility] Comment on above: Performed By: #### B MP #### [facility] [address] [place] [address] Calcium [Mass/Vol] 8.8 mg/dL Normal 8.5-9.9 [facility] Comment on above: Performed By: #### B MP #### [facility] [address] [place] [address] Chloride [Moles/Vol] 106 mmol/L Normal 95-107 [facility] Comment on above: Performed By: #### B MP #### [facility] [address] [place] [address] CO2 [Moles/Vol] 22 mmol/L Normal 20-31 [facility] Comment on above: Performed By: #### B MP #### [facility] [address] [place] [address] Creatinine [Mass/Vol] 0.87 mg/dL Normal 0.70-1.20 [facility] Comment on above: Performed By: #### B MP #### [facility] [address] [place] [address] GFR >60.0 Normal >60 [facility] Comment on above: Result Comment: Dandyi atric calculator link https://www.kidney.org/professionals/kdoqi/gfr_calculatorped Effective Jan 30, 2022 These results are not intended for use in patients <18 years of age. eGFR results are calculated without a race factor using the 2020 CKD-EPI equation. Careful clinical correlation is recommended, particularly when comparing to results calculated using previous equations. The CKD-EPI equation is less accurate in patients with extremes of muscle mass, extra-renal metabolism of creatinine, excessive creatinine ingestion, or following therapy that affects renal tubular secretion. Performed By: #### B MP #### [facility] [address] [place] [address] Glucose [Mass/Vol] 123 mg/dL Critically high 70-99 [facility] Comment on above: Performed By: #### B MP #### [facility] [address] [place] [address] Potassium [Moles/Vol] 4.8 mmol/L Normal 3.4-4.9 [facility] Comment on above: Performed By: #### B MP #### [facility] [address] [place] [address] Sodium [Moles/Vol] 139 mmol/L Normal 135-144 [facility] Comment on above: Performed By: #### B MP #### [facility] [address] [place] [address] Urea nitrogen [Mass/Vol] 13 mg/dL Normal 6-20 [facility] Comment on above: Performed By: #### B MP #### [facility] [address] [place] [address] CBC With Platelet and Differ entialon 10-07-2022 Basophils (Bld) [#/Vol] 0.0 10*3/uL Normal 0.0-0.2 [facility] Comment on above: Performed By: #### T RP5 #### [facility] [address] [place] [address] Basophils/100 WBC (Bld) 0.2 % Normal [facility] Comment on above: Performed By: #### T RP5 #### [facility] [address] [place] [address] Eosinophils (Bld) [#/Vol] 0.0 10*3/uL Normal 0.0-0.7 [facility] Comment on above: Performed By: #### T RP5 #### [facility] [address] [place] [address] Eosinophils/100 WBC (Bld) 0.0 % Normal [facility] Comment on above: Performed By: #### T RP5 #### [facility] [address] [place] [address] Erythrocyte distribution width (RBC) [Ratio] 12.8 % Normal 11.5-14.5 [facility] Comment on above: Performed By: #### T RP5 #### [facility] [address] [place] [address] Hematocrit (Bld) [Volume fraction] 46.0 % Normal 42.0-52.0 [facility] Comment on above: Performed By: #### T RP5 #### [facility] [address] [place] [address] Hemoglobin (Bld) [Mass/Vol] 15.0 g/dL Normal 14.0-18.0 [facility] Comment on above: Performed By: #### T RP5 #### [facility] [address] [place] [address] Lymphocytes (Bld) [#/Vol] 1.1 10*3/uL Normal 1.0-4.8 [facility] Comment on above: Performed By: #### T RP5 #### [facility] [address] [place] [address] Lymphocytes/100 WBC (Bld) 10.5 % Normal [facility] Comment on above: Performed By: #### T RP5 #### [facility] [address] [place] [address] MCH (RBC) [Entitic mass] 30.1 pg Normal 27.0-31.3 [facility] Comment on above: Performed By: #### T RP5 #### [facility] [address] [place] [address] MCHC 32.6 % Low 33.0-37.0 [facility] Comment on above: Performed By: #### T RP5 #### [facility] [address] [place] [address] MCV (RBC) [Entitic vol] 92.2 fL Normal 79.0-92.2 [facility] Comment on above: Performed By: #### T RP5 #### [facility] [address] [place] [address] Monocytes (Bld) [#/Vol] 0.3 10*3/uL Normal 0.2-0.8 [facility] Comment on above: Performed By: #### T RP5 #### [facility] [address] [place] [address] Monocytes/100 WBC (Bld) 3.0 % Normal [facility] Comment on above: Performed By: #### T RP5 #### [facility] [address] [place] [address] Neutrophils (Bld) [#/Vol] 9.5 10*3/uL Critically high 1.4-6.5 [facility] Comment on above: Performed By: #### T RP5 #### [facility] [address] [place] [address] Neutrophils/100 WBC (Bld) 86.3 % Normal [facility] Comment on above: Performed By: #### T RP5 #### [facility] [address] [place] [address] Platelets (Bld) [#/Vol] 251 10*3/uL Normal 130-400 [facility] Comment on above: Performed By: #### T RP5 #### [facility] [address] [place] [address] RBC (Bld) [#/Vol] 4.99 10*6/uL Normal 4.70-6.10 [facility] Comment on above: Performed By: #### T RP5 #### [facility] [address] [place] [address] WBC (Bld) [#/Vol] 11.0 10*3/uL Critically high 4.8-10.8 [facility] Comment on above: Performed By: #### T RP5 #### [facility] [address] [place] [address] CBC With Platelet and Differ entialon 10-06-2022 Basophils (Bld) [#/Vol] 0.1 10*3/uL Normal 0.0-0.2 [facility] Comment on above: Performed By: #### C BCWD #### [facility] [address] [place] [address] Basophils/100 WBC (Bld) 1.0 % Normal [facility] Comment on above: Performed By: #### C BCWD #### [facility] [address] [place] [address] Eosinophils (Bld) [#/Vol] 0.1 10*3/uL Normal 0.0-0.7 [facility] Comment on above: Performed By: #### C BCWD #### [facility] [address] [place] [address] Eosinophils/100 WBC (Bld) 1.8 % Normal [facility] Comment on above: Performed By: #### C BCWD #### [facility] [address] [place] [address] Erythrocyte distribution width (RBC) [Ratio] 13.7 % Normal 11.5-14.5 [facility] Comment on above: Performed By: #### C BCWD #### [facility] [address] [place] [address] Hematocrit (Bld) [Volume fraction] 44.5 % Normal 42.0-52.0 [facility] Comment on above: Performed By: #### C BCWD #### [facility] [address] [place] [address] Hemoglobin (Bld) [Mass/Vol] 14.5 g/dL Normal 14.0-18.0 [facility] Comment on above: Performed By: #### C BCWD #### [facility] [address] [place] [address] Lymphocytes (Bld) [#/Vol] 2.5 10*3/uL Normal 1.0-4.8 [facility] Comment on above: Performed By: #### C BCWD #### [facility] [address] [place] [address] Lymphocytes/100 WBC (Bld) 30.2 % Normal [facility] Comment on above: Performed By: #### C BCWD #### [facility] [address] [place] [address] MCH (RBC) [Entitic mass] 30.3 pg Normal 27.0-31.3 [facility] Comment on above: Performed By: #### C BCWD #### [facility] [address] [place] [address] MCHC 32.6 % Low 33.0-37.0 [facility] Comment on above: Performed By: #### C BCWD #### [facility] [address] [place] [address] MCV (RBC) [Entitic vol] 92.9 fL Critically high 79.0-92.2 [facility] Comment on above: Performed By: #### C BCWD #### [facility] [address] [place] [address] Monocytes (Bld) [#/Vol] 0.6 10*3/uL Normal 0.2-0.8 [facility] Comment on above: Performed By: #### C BCWD #### [facility] [address] [place] [address] Monocytes/100 WBC (Bld) 6.8 % Normal [facility] Comment on above: Performed By: #### C BCWD #### [facility] [address] [place] [address] Neutrophils (Bld) [#/Vol] 5.0 10*3/uL Normal 1.4-6.5 [facility] Comment on above: Performed By: #### C BCWD #### [facility] [address] [place] [address] Neutrophils/100 WBC (Bld) 60.2 % Normal [facility] Comment on above: Performed By: #### C BCWD #### [facility] [address] [place] [address] Platelets (Bld) [#/Vol] 245 10*3/uL Normal 130-400 [facility] Comment on above: Performed By: #### C BCWD #### [facility] [address] [place] [address] RBC (Bld) [#/Vol] 4.80 10*6/uL Normal 4.70-6.10 [facility] Comment on above: Performed By: #### C BCWD #### [facility] [address] [place] [address] WBC (Bld) [#/Vol] 8.2 10*3/uL Normal 4.8-10.8 [facility] Comment on above: Performed By: #### C BCWD #### [facility] [address] [place] [address] Basophils (Bld) [#/Vol] 0.1 10*3/uL Normal 0.0-0.2 [facility] Comment on above: Performed By: #### T RP5 #### [facility] [address] [place] [address] Basophils/100 WBC (Bld) 1.1 % Normal [facility] Comment on above: Performed By: #### T RP5 #### [facility] [address] [place] [address] Eosinophils (Bld) [#/Vol] 0.2 10*3/uL Normal 0.0-0.7 [facility] Comment on above: Performed By: #### T RP5 #### [facility] [address] [place] [address] Eosinophils/100 WBC (Bld) 2.8 % Normal [facility] Comment on above: Performed By: #### T RP5 #### [facility] [address] [place] [address] Erythrocyte distribution width (RBC) [Ratio] 13.4 % Normal 11.5-14.5 [facility] Comment on above: Performed By: #### T RP5 #### [facility] [address] [place] [address] Hematocrit (Bld) [Volume fraction] 47.4 % Normal 42.0-52.0 [facility] Comment on above: Performed By: #### T RP5 #### [facility] [address] [place] [address] Hemoglobin (Bld) [Mass/Vol] 15.7 g/dL Normal 14.0-18.0 [facility] Comment on above: Performed By: #### T RP5 #### [facility] [address] [place] [address] Lymphocytes (Bld) [#/Vol] 3.3 10*3/uL Normal 1.0-4.8 [facility] Comment on above: Performed By: #### T RP5 #### [facility] [address] [place] [address] Lymphocytes/100 WBC (Bld) 37.8 % Normal [facility] Comment on above: Performed By: #### T RP5 #### [facility] [address] [place] [address] MCH (RBC) [Entitic mass] 30.5 pg Normal 27.0-31.3 [facility] Comment on above: Performed By: #### T RP5 #### [facility] [address] [place] [address] MCHC 33.0 % Normal 33.0-37.0 [facility] Comment on above: Performed By: #### T RP5 #### [facility] [address] [place] [address] MCV (RBC) [Entitic vol] 92.4 fL Critically high 79.0-92.2 [facility] Comment on above: Performed By: #### T RP5 #### [facility] [address] [place] [address] Monocytes (Bld) [#/Vol] 0.6 10*3/uL Normal 0.2-0.8 [facility] Comment on above: Performed By: #### T RP5 #### [facility] [address] [place] [address] Monocytes/100 WBC (Bld) 7.0 % Normal [facility] Comment on above: Performed By: #### T RP5 #### [facility] [address] [place] [address] Neutrophils (Bld) [#/Vol] 4.5 10*3/uL Normal 1.4-6.5 [facility] Comment on above: Performed By: #### T RP5 #### [facility] [address] [place] [address] Neutrophils/100 WBC (Bld) 51.3 % Normal [facility] Comment on above: Performed By: #### T RP5 #### [facility] [address] [place] [address] Platelets (Bld) [#/Vol] 271 10*3/uL Normal 130-400 [facility] Comment on above: Performed By: #### T RP5 #### [facility] [address] [place] [address] RBC (Bld) [#/Vol] 5.13 10*6/uL Normal 4.70-6.10 [facility] Comment on above: Performed By: #### T RP5 #### [facility] [address] [place] [address] WBC (Bld) [#/Vol] 8.8 10*3/uL Normal 4.8-10.8 [facility] Comment on above: Performed By: #### T RP5 #### [facility] [address] [place] [address] CT ABDOMEN PELVIS WO CONTRAS Ton 10-06-2022 CT ABDOMEN PELVIS WO CONTRAST EXAMINATION: CT OF THE ABDOMEN AND PELVIS WITHOUT CONTRAST 10/06/2022 1:20 am TECHNIQUE: CT of the abdomen and pelvis was performed without the administration of intravenous contrast. Multiplanar reformatted images are provided for review. Automated exposure control, iterative reconstruction, and/or weight based adjustment of the mA/kV was utilized to reduce the radiation dose to as low as reasonably achievable. COMPARISON: None. HISTORY: ORDERING SYSTEM PROVIDED HISTORY: L flank pain hx kidney stones TECHNOLOGIST PROVIDED HISTORY: Reason for exam:->L flank pain hx kidney stones Additional Contrast?->None Decision Support Exception - unselect if not a suspected or confirmed emergency medical condition->Emergency Medical Condition (MA) What reading provider will be dictating this exam?->CRC FINDINGS: Lower Chest: The lung bases are grossly clear. Organs: The liver is homogeneous in appearance. No stones in the gallbladder. The pancreas is homogeneous. The spleen is unremarkable. Both adrenal glands are within normal limits. There is moderate distension identified of the left renal collecting system and proximal ureter. There is a 7 mm long proximal left ureteral stone creating moderate obstruction. Nonobstructing stone identified inferiorly within the left kidney. There is several nonobstructing stones seen in the right kidney. GI/Bowel: The stomach is unremarkable. No wall thickening. The small bowel is within normal limits. No mucosal abnormality. Stool seen scattered diffusely throughout the colon. No signs of obvious obstruction or obstructing lesion. The appendix is normal. Pelvis: The bladder is decompressed. No wall thickening. The prostate is unremarkable. Peritoneum/Retroperitoneu m: No abdominal retroperitoneal lymphadenopathy. No free fluid or free air. No abnormal mass or fluid collections identified. No pelvic adenopathy. Bones/Soft Tissues: Bony structures reveal no evidence of acute or aggressive osseous abnormality. No ventral abdominal wall mass or defect. Fusion identified the sacroiliac joints as well as the lower lumbar spine. IMPRESSION: 7 mm left proximal ureteral stone just beyond the left UPJ creating moderate hydronephrosis and hydroureter on the left. Several nonobstructing stones seen within the kidneys bilaterally. Interpreted by: Darlene Varela MD Signed by: Darlene Varela MD 10/06/[address] [facility] Comprehensive Metabolic Pane narayan 10-06-2022 Albumin [Mass/Vol] 4.3 g/dL Normal 3.5-4.6 [facility] Comment on above: Performed By: #### B NPPR #### [facility] [address] [place] [address] ALP [Catalytic activity/Vol] 70 U/L Normal 35-104 [facility] Comment on above: Performed By: #### B NPPR #### [facility] [address] [place] [address] ALT [Catalytic activity/Vol] 21 U/L Normal 0-41 [facility] Comment on above: Performed By: #### B NPPR #### [facility] [address] [place] [address] Anion gap [Moles/Vol] 9 mmol/L Normal 9-15 [facility] Comment on above: Performed By: #### B NPPR #### [facility] [address] [place] [address] AST [Catalytic activity/Vol] 19 U/L Normal 0-40 [facility] Comment on above: Performed By: #### B NPPR #### [facility] [address] [place] [address] Bilirubin [Mass/Vol] 0.3 mg/dL Normal 0.2-0.7 [facility] Comment on above: Performed By: #### B NPPR #### [facility] [address] [place] [address] Calcium [Mass/Vol] 9.4 mg/dL Normal 8.5-9.9 [facility] Comment on above: Performed By: #### B NPPR #### [facility] [address] [place] [address] Chloride [Moles/Vol] 106 mmol/L Normal 95-107 [facility] Comment on above: Performed By: #### B NPPR #### [facility] [address] [place] [address] CO2 [Moles/Vol] 25 mmol/L Normal 20-31 [facility] Comment on above: Performed By: #### B NPPR #### [facility] [address] [place] [address] Creatinine [Mass/Vol] 1.19 mg/dL Normal 0.70-1.20 [facility] Comment on above: Performed By: #### B NPPR #### [facility] [address] [place] [address] GFR >60.0 Normal >60 [facility] Comment on above: Result Comment: Aura atric calculator link https://www.kidney.org/professionals/kdoqi/gfr_calculatorped Effective Jan 30, 2022 These results are not intended for use in patients <18 years of age. eGFR results are calculated without a race factor using the 2020 CKD-EPI equation. Careful clinical correlation is recommended, particularly when comparing to results calculated using previous equations. The CKD-EPI equation is less accurate in patients with extremes of muscle mass, extra-renal metabolism of creatinine, excessive creatinine ingestion, or following therapy that affects renal tubular secretion. Performed By: #### B NPPR #### [facility] [address] [place] [address] Globulin (S) [Mass/Vol] 2.7 g/dL Normal 2.3-3.5 [facility] Comment on above: Performed By: #### B NPPR #### [facility] [address] [place] [address] Glucose [Mass/Vol] 104 mg/dL Critically high 70-99 [facility] Comment on above: Performed By: #### B NPPR #### [facility] [address] [place] [address] Potassium [Moles/Vol] 3.8 mmol/L Normal 3.4-4.9 [facility] Comment on above: Performed By: #### B NPPR #### [facility] [address] [place] [address] Protein [Mass/Vol] 7.0 g/dL Normal 6.3-8.0 [facility] Comment on above: Performed By: #### B NPPR #### [facility] [address] [place] [address] Sodium [Moles/Vol] 140 mmol/L Normal 135-144 [facility] Comment on above: Performed By: #### B NPPR #### [facility] [address] [place] [address] Urea nitrogen [Mass/Vol] 16 mg/dL Normal 6-20 [facility] Comment on above: Performed By: #### B NPPR #### [facility] [address] [place] [address] FLUORO FOR SURGICAL PROCEDUR ESon 10-06-2022 FLUORO FOR SURGICAL PROCEDURES EXAMINATION: SPOT FLUOROSCOPIC IMAGES 10/06/2022 11:07 am TECHNIQUE: Fluoroscopy was provided by the radiology department for procedure. Radiologist was not present during examination. FLUOROSCOPY DOSE AND TYPE: Radiation Exposure Index: Kerma mGy, 38.96 mGy COMPARISON: CT abdomen and pelvis without 10/06/2022 HISTORY: ORDERING SYSTEM PROVIDED HISTORY: pain TECHNOLOGIST PROVIDED HISTORY: Reason for exam:->pain What reading provider will be dictating this exam?->CRC Intraprocedural imaging. FINDINGS: 5 spot images of the left ureter were obtained. Opacification of the left collecting system is noted. IMPRESSION: Intraprocedural fluoroscopic spot images as above. See separate procedure report for more information. Interpreted by: Luis Guerrero MD Signed by: Luis Guerrero MD 10/06/[address] [facility] Lactic Acidon 10-06-2022 Lactate [Moles/Vol] 1.1 mmol/L Normal 0.5-2.2 [facility] Comment on above: Performed By: #### T RP5 #### [place] [address] OPERATIVE REPORTon 3 [place] [address] OPERATIVE REPORT PATIENT NAME: CARMELITA EASTMAN : 1975 MED REC NO: [id number] ROOM: ACCOUNT NO: [id number] ADMIT DATE: 10/06/2022 PROVIDER: Fara López MD DATE OF PROCEDURE: 10/06/2022 PREOPERATIVE DIAGNOSIS: Left 6-7 mm proximal ureteral stone. POSTOPERATIVE DIAGNOSIS: Left 6-7 mm proximal ureteral stone. PROCEDURE PERFORMED: Cystoscopy with left retrograde pyelogram, left 6-Finnish x 26 cm double-J stent insertion. SURGEON: Fara López MD ANESTHESIA: General with a 2% lidocaine local per urethra. ESTIMATED BLOOD LOSS: Minimal. COMPLICATIONS: None. CONDITION: Stable to recovery room. BRIEF CLINICAL: This 47-year-old male with history of kidney stones, chronic back pain, and having had prior surgeries for stones in the past including stent and lithotripsy and stone basket extraction. He was doing well until a couple days ago, when he developed nausea followed by left flank pain similar to his prior episodes of renal colic. The pain intensified and he was seen in the emergency room, found to have a proximal ureteral stone about 6-7 mm in size with associated hydroureteronephrosis. Because of his intractable pain, he was admitted for further management. He was seen this morning and it is recommend he undergo cystoscopy and stent insertion for his intractable pain and some nausea. He had no evidence for active UTI. The risks and benefits of procedure were discussed. He wanted to proceed as planned. He was given 1 gm of IV Rocephin preoperatively. He had sequential compression device placed on his lower extremities prior induction of general anesthesia. A time-out was held at the beginning of the case. A discussion with the patient was held at the beginning of the case as well. OPERATIVE PROCEDURE: The patient was brought to the operating room with an informed consent signed, IV running. After successful induction of general anesthesia, he was placed in dorsal lithotomy position on the operating table. He was prepped and draped sterilely. A 2% lidocaine Uro-Jet was guided per urethra. Then, a 21-Finnish cystoscope was then guided atraumatically through the urethra into the bladder. The urethra appeared unremarkable. Prostatic urethra appeared unremarkable. Upon entering the bladder, bladder was drained of clear yellow urine. There were no bladder wall tumors. Both ureteral orifices were normal position with a clear efflux of urine. At conclusion of this, a 6-Finnish end-hole flexible tip ureteral catheter was guided in the distal left ureter atraumatically. A left retrograde pyelogram was performed. The patient does have a significant amount of spinal hardware noted in the area of the proximal ureter. There was a calcification noted fluoroscopically. This was consistent with the patient's known history of stone in this location, as it appeared as a filling defect with retrograde pyelogram. Contrast was able to be advanced beyond the stone into the collecting system of the left kidney, which was moderately dilated. At this point, a 0.035 Glidewire was attempted to be passed by the stone, as the stone was somewhat impacted. I had to pass the ureteral catheter up to the stone, which allowed for Glidewire passage into the kidney easily coiled in the upper pole. At this point, attempts to place the 6-Finnish end-hole ureteral catheter were met with difficulty due to the impacted nature of the stone. Therefore, the end-hole catheter was removed. A 6-Finnish x 26-cm tapered tipped double-J stent was advanced over the Glidewire. This actually passed over the Glidewire into the kidney. The wire was removed. There was noted to be a coil within the renal pelvis and within the bladder. The bladder was then drained. Cystoscope was then removed. The stone appeared to be in a similar position when it was originally seen. It was somewhat impacted. The bladder was drained. The cystoscope was removed. The patient was awoken from anesthesia and taken to recovery room in stable condition. Status post cystoscopy with left retrograde pyelogram, left double-J stent insertion. The patient to be discharged later today to home or tomorrow depending on his clinical status and medical clearance. Arrangements for follow-up have been made next week for a KUB to discuss definitive stone management. FARA LÓPEZ MD [id number] Doc#: [id number] CC: Fara López MD Normal [facility] Urinalysis, reflex to cultur tamara 10-06-2022 Urine Reflexed to Culture Not Indicated Normal [facility] Comment on above: Performed By: #### U AR #### [facility] [address] [place] [address] Bilirubin Ql (U) Negative Normal Negative [facility] Comment on above: Performed By: #### U AR #### [facility] [address] [place] [address] Clarity (U) Clear Normal Clear [facility] Comment on above: Performed By: #### U AR #### [facility] [address] [place] [address] Color (U) Yellow Normal Straw/Cook [facility] Comment on above: Performed By: #### U AR #### [facility] [address] [place] [address] Glucose Ql (U) Negative Normal Negative [facility] Comment on above: Performed By: #### U AR #### [facility] [address] [place] [address] Hemoglobin Ql (U) LARGE Abnormal Negative [facility] Comment on above: Performed By: #### U AR #### [facility] [address] [place] [address] Ketones Ql (U) TRACE Abnormal Negative [facility] Comment on above: Performed By: #### U AR #### [facility] [address] [place] [address] Leukocyte esterase Test strip Ql (U) Negative Normal Negative [facility] Comment on above: Performed By: #### U AR #### [facility] [address] [place] [address] Nitrite Ql (U) Negative Normal Negative [facility] Comment on above: Performed By: #### U AR #### [facility] [address] [place] [address] pH (U) 5.5 [pH] Normal 5.0-9.0 [facility] Comment on above: Performed By: #### U AR #### [facility] [address] [place] [address] Protein Ql (U) 100 mg/dL Abnormal Negative [facility] Comment on above: Performed By: #### U AR #### [facility] [address] [place] [address] Specific gravity (U) [Rel density] 1.028 Normal 1.005-1.03 [facility] Comment on above: Performed By: #### U AR #### [facility] [address] [place] [address] Urobilinogen Qn (U) 0.2 {Jo'U}/dL Normal < 2.0 [facility] Comment on above: Performed By: #### U AR #### [facility] [address] [place] [address] Urine Microscopicon 10-07-19 23 Crystals LM Nom (Urine sed) 2+ Ca. Oxalate Abnormal None Seen [facility] Comment on above: Performed By: #### T RP5 #### [facility] [address] [place] [address] Bacteria LM.HPF (Urine sed) [#/Area] Negative Normal Negative [facility] Comment on above: Performed By: #### T RP5 #### [facility] [address] [place] [address] Urine Epithelial Cells Auto 0-2 Normal 0-5 [facility] Comment on above: Performed By: #### T RP5 #### [facility] [address] [place] [address] Urine Hyaline Casts Auto 1-3 Normal 0-5 [facility] Comment on above: Performed By: #### T RP5 #### [facility] [address] [place] [address] Urine RBC Auto 10-20 Abnormal 0-5 [facility] Comment on above: Performed By: #### T RP5 #### [facility] [address] [place] [address] Urine WBC Auto 3-5 Normal 0-5 [facility] Comment on above: Performed By: #### T RP5 #### [facility] [address] [place] [address] FL GUIDED FOR SPINE INJECTon 06-15-2022 FL GUIDED FOR SPINE INJECT Final result Normal [facility] Clinical Event Note-discharg e follow upon 05-19-2022 Clinical Event Note-discharge follow up Clinical Event: Clinical Event Note: Topicdischarge follow up Details spoke with pt said he is doing a bit better, advised him about the 5 star survey Electronic Signatures: Francisca Vargas (PT SVS REP) (Signed 19-May-2022 16:45) Authored: Clinical Event Note Last Updated: 19-May-2022 16:45 by Francisca Vargas (PT SVS REP) Normal [facility] BASIC METABOLIC PANELon 04-30 Anion gap [Moles/Vol] 9 mmol/L Low 10 - 20 [facility] Comment on above: Performed By: #### B MP #### [address] [id number] Calcium [Mass/Vol] 8.4 mg/dL Low 8.6 - 10.3 [facility] Comment on above: Performed By: #### B MP #### [address] [id number] Chloride [Moles/Vol] 106 mmol/L Normal 98 - 107 [facility] Comment on above: Performed By: #### B MP #### [address] [id number] Creatinine [Mass/Vol] 1.03 mg/dL Normal 0.50 - 1.30 [facility] Comment on above: Performed By: #### B MP #### [address] [id number] GFR/1.73 sq M.predicted among non-blacks MDRD (S/P/Bld) [Vol rate/Area] 90 mL/min/{1.73_m2} Normal >90 [facility] Comment on above: Result Comment: CALC ULATIONS OF ESTIMATED GFR ARE PERFORMED USING THE 2020 CKD-EPI STUDY REFIT EQUATION WITHOUT THE RACE VARIABLE FOR THE IDMS-TRACEABLE CREATININE METHODS. https://jasn.asnjournals.org/content//ASN.22676 56801 Performed By: #### B MP #### [address] [id number] Glucose [Mass/Vol] 100 mg/dL High 74 - 99 [facility] Comment on above: Performed By: #### B MP #### [address] [id number] HCO3 (Bld) [Moles/Vol] 28 mmol/L Normal 21 - 32 [facility] Comment on above: Performed By: #### B MP #### [address] [id number] Potassium [Moles/Vol] 4.1 mmol/L Normal 3.5 - 5.3 [facility] Comment on above: Performed By: #### B MP #### [address] [id number] Sodium [Moles/Vol] 139 mmol/L Normal 136 - 145 [facility] Comment on above: Performed By: #### B MP #### [address] [id number] Urea nitrogen [Mass/Vol] 20 mg/dL Normal 6 - 23 [facility] Comment on above: Performed By: #### B MP #### [address] [id number] C-REACTIVE PROTEINon 023 C-REACTIVE PROTEIN 0.68 mg/dL Normal [facility] Comment on above: Result Comment: REF VALUE < 1.00 Performed By: #### C RP #### [address] [id number] CBC AND DIFFERENTIALon 05-18 % AUTOMATED IMMATURE GRAN 0.4 % Normal 0.0 - 0.9 [facility] Comment on above: Result Comment: Yary ture Granulocyte Count (IG) includes promyelocytes, myelocytes and metamyelocytes but does not include bands. Percent differential counts (%) should be interpreted in the context of the absolute cell counts (cells/L). Performed By: #### C BCDF #### [address] [id number] Basophils (Bld) [#/Vol] 0.04 10*3/uL Normal 0.00 - 0.10 [facility] Comment on above: Performed By: #### C BCDF #### [address] [id number] Basophils/100 WBC (Bld) 0.5 % Normal 0.0 - 2.0 [facility] Comment on above: Performed By: #### C BCDF #### [address] [id number] Eosinophils (Bld) [#/Vol] 0.22 10*3/uL Normal 0.00 - 0.70 [facility] Comment on above: Performed By: #### C BCDF #### [address] [id number] Eosinophils/100 WBC (Bld) 2.8 % Normal 0.0 - 6.0 [facility] Comment on above: Performed By: #### C BCDF #### [address] [id number] Erythrocyte distribution width (RBC) [Ratio] 13.0 % Normal 11.5 - 14.5 [facility] Comment on above: Performed By: #### C BCDF #### [address] [id number] Hematocrit (Bld) [Volume fraction] 43.0 % Normal 41.0 - 52.0 [facility] Comment on above: Performed By: #### C BCDF #### [address] [id number] Hemoglobin (Bld) [Mass/Vol] 14.1 g/dL Normal 13.5 - 17.5 [facility] Comment on above: Performed By: #### C BCDF #### [address] [id number] Lymphocytes (Bld) [#/Vol] 2.21 10*3/uL Normal 1.20 - 4.80 [facility] Comment on above: Performed By: #### C BCDF #### [address] [id number] Lymphocytes/100 WBC (Bld) 28.4 % Normal 13.0 - 44.0 [facility] Comment on above: Performed By: #### C BCDF #### [address] [id number] MCHC (RBC) [Mass/Vol] 32.8 g/dL Normal 32.0 - 36.0 [facility] Comment on above: Performed By: #### C BCDF #### [address] [id number] MCV (RBC) [Entitic vol] 91 fL Normal 80 - 100 [facility] Comment on above: Performed By: #### C BCDF #### [address] [id number] Monocytes (Bld) [#/Vol] 0.53 10*3/uL Normal 0.10 - 1.00 [facility] Comment on above: Performed By: #### C BCDF #### [address] [id number] Monocytes/100 WBC (Bld) 6.8 % Normal 2.0 - 10.0 [facility] Comment on above: Performed By: #### C BCDF #### [address] [id number] Neutrophils (Bld) [#/Vol] 4.74 10*3/uL Normal 1.20 - 7.70 [facility] Comment on above: Performed By: #### C BCDF #### [address] [id number] Neutrophils/100 WBC (Bld) 61.1 % Normal 40.0 - 80.0 [facility] Comment on above: Performed By: #### C BCDF #### [address] [id number] Platelets (Bld) [#/Vol] 236 10*3/uL Normal 150 - 450 [facility] Comment on above: Performed By: #### C BCDF #### [address] [id number] RBC 4.71 x10E12/L Normal 4.50 - 5.90 [facility] Comment on above: Performed By: #### C BCDF #### [address] [id number] WBC (Bld) [#/Vol] 7.8 10*3/uL Normal 4.4 - 11.3 [facility] Comment on above: Performed By: #### C BCDF #### [address] [id number] Provider Note - ED v3on 04-30 Provider Note - ED v3 Provider Note: Chart Review: ED NOTES ED NOTES: . 46-year-old male presents emergency department with complaints of pain. Patient states he was at an outpatient appointment having an injection by his pain management physician, states suddenly sharp scooting pains down his left leg, causing weakness., States he was being evaluated for a pain pump today. Patient states extensive history of spine surgeries, has a nerve stimulator implanted that is no longer working as it is over 8 years old I did reach out to the patient's pain management physician, Dr. Bryant to discuss, states that he was receiving an injection of morphine/bupivacaine into his spine at T12/L1. States as he inserted the needle the patient complained of a zinging into his left leg, he attempted to inject, injected less than 0.1 mL when the patient stated pain was worsening. He then withdrew the needle immediately. Due to the patient's severe discomfort a squad was called and the patient was transferred to the hospital. Limitations to history: None Independent Historians: EMS, Dr. Bryant External Records Reviewed: PMFSH: As per HPI, otherwise nurses notes reviewed in EMR Physical Exam: Gen.: Vitals noted no distress. Afebrile. Heart: Regular rate rhythm no murmur. Lungs: Clear to auscultation bilaterally with good aeration and no adventitious breath sounds. Abdomen: Soft, nontender, nonsurgical throughout. Normoactive bowel sounds. No pulsatile masses or abdominal bruits to auscultation. Back: There is tenderness to palpation in the midline and paraspinal planes throughout the LS. Normal motor sensory, symmetric reflexes, strong equal peripheral pulses, normal Babinski's bilaterally. Skin: No rash. Neuro: No focal neurologic deficits, NIH score of 0. HISTORY OF PRESENTING ILLNESS CARMELITA is a 46 year old Male and was seen by me at 18-May-2022 10:52 for a chief complaint of back pain (Pt was undergoing a trial for a pain pump. While in procedure pt felt a sharp pain during spinal injection. Pt is c/o sharp/ burning pain down left hip and leg. Pt can wiggle toes but is unable to lift leg. Pulses and sensation intact currently. Per EMS sensation was not intact.) . Triage Information: Most recent Vital Sign Value Date Heart Rate (beats/min): 81 05-18-2022 10:57 Respirations (breaths/min): 18 05-18-2022 10:57 SpO2 (%): 94 05-18-2022 10:57 BP Systolic (mm Hg): 141 05-18-2022 10:57 BP Diastolic (mm Hg): 92 05-18-2022 10:57 PAST MEDICAL HISTORY ALLERGIES/INTOLERANCES: No Known Allergies HEALTH HISTORY: No documented data. OUTPATIENT MEDICATIONS: Home Medications Review Status for Reconciliation: Incomplete Med Status: Incomplete Medication History No documented data. 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 Description:rotator cuff CRITICAL CARE RESULTS: Recent Lab Results: I have reviewed these laboratory results: Complete Blood Count + Differential 18-May-2022 12:49:00 ResultValue White Blood Cell Count 7.8 Red Blood Cell Count 4.71 HGB 14.1 HCT 43.0 MCV 91 MCHC 32.8 PLT 236 RDW-CV 13.0 Neutrophil % 61.1 Immature Granulocytes % 0.4 Lymphocyte % 28.4 Monocyte % 6.8 Eosinophil % 2.8 Basophil % 0.5 Neutrophil Count 4.74 Lymphocyte Count 2.21 Monocyte Count 0.53 Eosinophil Count 0.22 Basophil Count 0.04 Basic Metabolic Panel 18-May-2022 12:49:00 ResultValue Glucose, Serum 100 H NA 139 K 4.1 CL 106 Bicarbonate, Serum 28 Anion Gap, Serum 9 L BUN 20 CREAT 1.03 GFR Male 90 Calcium, Serum 8.4 L C Reactive Protein, Serum 18-May-2022 12:49:00 ResultValue C Reactive Protein, Serum 0.68 Sedimentation Rate, Erythrocyte 18-May-2022 12:49:00 ResultValue Sedimentation Rate, Erythrocyte 5 VITAL SIGNS: T PRBP SpO2O2(LPM) %FiO2 Method 18-May-2022 16:31:[id number] 98 room air, no respiratory support 18-May-2022 16:30:[id number] 98 room air, no respiratory support 18-May-2022 13:06:[id number]/67 97 room air, no respiratory support 18-May-2022 10:57:[id number]/92 94 MDM MDM/ED COURSE: Initial physical exam patient was nontender throughout the thoracic and lumbar spines. Complained of slight decrease sensation to the left lower extremity versus the right but was able to straight leg raise. He was able to roll himself over for my back exam. Patient received medications for pain, 0.5 mg of IV Dilaudid while I did reach out to the patient's pain pump company to discuss MRI. Visit was prolonged as it took hours to receive a call back from [employer], eventually they did notify me that the nerve stimulator is not MRI compatible. I did read discussed the patient with Dr. Bryant multiple times, recomme (more content not included)... Normal [facility] Risk Screen - Adult Emergenc yon 05-18-2022 Risk Screen - Adult Emergency Preferred Language: Preferred Language: Preferred Language for Discussing Health Care (patient/designee)[place] Patient Preferred Pharmacy: Patient Preferred Pharmacy Statement: I have reviewed and updated the patient's preferred pharmacy selection for today's visit. Advanced Directives: Advance Directive/DNRno Family Violence Adult: Abuse Screen: Are you or have you been threatened or abused physically, emotionally, or sexually by anyoneno Learning Assessment (Patient): Learning Assessment (Patient): Patient is Able to be Assessed for Learningyes Factors Influencing Readiness to Learnacuteness of illness Factors that Impact Ability to Learnnone Devices/Methods Used to Communicatenone Learning Preferencesverbal instruction Cultural Considerationsnone Developmental Considerationsnone Confucianist Considerationsnone Learning Assessment (Other Learner): Learning Assessment (Other Learner): Other learner availableno Pressure Injury/TB/Substance: Pressure Injury: Pressure Injury Present on Admissionno Do you have a coughno Smoking Statusnever smoker Alcohol Usedenies Drug Usedenies Drug 2 Usedenies Admission Risk Screen: Significant IndicatorsComplete CAGE: CAGE: [place] this an [place] [place]/ [place] yes C: Have you ever felt you needed to Cut down on your drinking: no A: Have people Annoyed you by criticizing your drinking: no G: Have you ever felt Guilty about drinking: no E: Have you 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 felt 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) to 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 or to get rid of hangover: no Electronic Signatures: Flora Jiménez (RN) (Signed 18-May-2022 11:11) Authored: Preferred Language, Patient Preferred Pharmacy, Advanced Directives, Family Violence Adult, Learning Assessment (Patient), Learning Assessment (Other Learner), Pressure Injury/TB/Substance, Pressure Injury, CAGE Last Updated: 18-May-2022 11:11 by Flora Jiménez (RN) Normal [facility] SEDIMENTATION RATE, ERYTHROC YTEon 05-18-2022 SEDIMENTATION RATE, ERYTHROCYTE 5 mm/h Normal 0 - 15 [facility] Comment on above: Result Comment: Ilene johnson note new reference ranges as of 09/05/2021. Ran on alternate instrument Reference Ranges: Males: 0-15 Females: 0-20 Children under 18: 0-10 Performed By: #### E SRWS #### [address] [id number] Triage - EDon 05-18-2022 Triage - ED Chart Review: ARRIVAL INFORMATION Mode of Arrival: ambulance Agency Name: [facility] CHIEF COMPLAINT CARMELITA EASTMAN is a Male patient with a chief complaint of back pain (Pt was undergoing a trial for a pain pump. While in procedure pt felt a sharp pain during spinal injection. Pt is c/o sharp/ burning pain down left hip and leg. Pt can wiggle toes but is unable to lift leg. Pulses and sensation intact currently. Per EMS sensation was not intact.). Triage Date/Time: 18-May-2022 10:57 KESHIA: 2 Pain Rating (0-10): 9 = Severe Pain location: Left hip and leg Vital Signs: Temperature: F ( C) taken temporal Blood Pressure: 141/92 Mean: Heart Rate: 81 Respiratory Rate: 18 Pulse Oximetry: 94% Height: 5 feet 9.00 inches. 175.2 CM Weight: 260.3 pounds. Calculated 118.1 kg. Calculated BMI (kg/m2): 38.475 Calculated BSA (m2) 2.40 Geovanny Coma Scale: Best Eye Response: (E4) spontaneous Best Motor Response: (M6) obeys commands Best Verbal Response: (V5) oriented Warren Score: 15 Cough lasting greater than 3 weeks: no Allergies: no Patient has homicidal thoughts: no Risk Screens Suicide Risk Screen In the Past Month: Have you wished you were or wished you could go to sleep and not wake up no In the Past Month: Have you had any actual thoughts of killing yourself no In Your Lifetime: Have you ever done anything, started to do anything, or prepared to do anything to end your life no Mortensen Fall Scale Screening Has the patient fallen before (or is the patient in the ED as a result of a fall) has not had a fall Does the patient have an impaired gait does not have impaired gait Is the patient cognitively impaired not cognitively impaired Interventions: Mortensen Fall Interventions: LOW INTERVENTIONS: *patient oriented to surroundings and call system, * patient/family falls education completed and documented, *patients fall status communicated during bedside handoff, *whiteboard updated, *mode of toileting discussed with patient, *bed in low position with brakes locked, *call light in reach, * non-skid footwear TRAVEL HISTORY Travel History Coronavirus Screening: no exposure or symptoms Travel Exposure History: NO travel to International locations in the past 30 days PAIN Pain Scale Used: AYAN Pain Rating (0-10): 9 = Severe Past Medical History: Past Medical History Reviewedyes rotator cuff: Past Surgical History, Active bilateral SI joints fused: Past Surgical History, Active Back surgery: Past Surgical History, 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 COVID + FLU Quick Testingon 03-27-2022 SARS-CoV-2 (COVID-19) RNA SANDRA+probe Ql (Unsp spec) Negative [employer] Other COVID + FLU Quick Testing Negative [employer] Other SCANNED COLONOSCOPY REPORTon 02-01-2022 [facility] CBC with Auto Differentialon 12-30-2021 Basophils (Bld) [#/Vol] 0.1 10*3/uL 0 - 0.2 K/uL [facility] Basophils/100 WBC (Bld) 1.0 % [facility] Eosinophils (Bld) [#/Vol] 0.2 10*3/uL 0 - 0.7 K/uL [facility] Eosinophils/100 WBC (Bld) 2.5 % [facility] Hematocrit (Bld) [Volume fraction] 46.9 % 42 - 52 % [facility] Hemoglobin (Bld) [Mass/Vol] 15.2 g/dL 14 - 18 g/dL [facility] Interpretation and review of laboratory results Abnormal [facility] Lymphocytes (Bld) [#/Vol] 2.7 10*3/uL 1 - 4.8 K/uL [facility] Lymphocytes/100 WBC (Bld) 31.8 % [facility] MCH (RBC) [Entitic mass] 29.4 pg 27 - 31.3 pg [facility] MCHC (RBC) [Mass/Vol] 32.4 % Low 33 - 37 % [facility] MCV (RBC) [Entitic vol] 90.8 fL 80 - 100 fL [facility] Monocytes (Bld) [#/Vol] 0.7 10*3/uL 0.2 - 0.8 K/uL [facility] Monocytes/100 WBC (Bld) 8.5 % [facility] Neutrophils Absolute 4.7 K/uL 1.4 - 6 .5 K/uL [facility] Neutrophils/100 WBC (Bld) 56.2 % [facility] Platelet distribution width (Bld) [Ratio] 13.9 % 11.5 - 14.5 % [facility] Platelets (Bld) [#/Vol] 267 10*3/uL 130 - 400 K/uL [facility] RBC (Bld) [#/Vol] 5.16 10*6/uL [facility] WBC (Bld) [#/Vol] 8.4 10*3/uL 4.8 - 10.8 K/uL [facility] CT ABDOMEN PELVIS W IV CONTR AST Additional Contrast? Noneon 12-30-2021 1. BILATERAL NONOBSTRUCTING INTRARENAL CALCULI, MORE SO ON THE LEFT. 2. POSTOPERATIVE CHANGES LUMBAR SPINE. 3. NO OTHER SIGNIFICANT ACUTE INTRA-ABDOMINAL ABNORMALITY. [facility] EXAMINATION: CT ABDO MEN AND PELVIS WITH INTRAVENOUS CONTRAST. CLINICAL HISTORY: ABDOMINAL PAIN COMPARISONS: NONE AVAILABLE TECHNIQUE: Axial images were obtained with intravenous contrast from diaphragm to symphysis pubis. All CT scans at this facility use dose modulation, iterative reconstruction, and/or weight based dosing when appropriate to reduce radiation dose to as low as reasonably achievable. FINDINGS: Liver and spleen are free of significant focal lesion. Gallbladder is unremarkable. There is no significant biliary dilatation. There are several nonobstructing intrarenal calculi, particularly on the left. The largest overlies on the left, and measures approximately 7 mm in diameter. Pancreas, kidneys, and adrenals show no other significant abnormality, apart from the above. The appendix is not significantly enlarged nor inflamed. Urinary bladder slightly distended; its contours are otherwise grossly unremarkable. Prostate is not significantly enlarged. There is no joi intestinal obstruction, pneumoperitoneum, nor significant free peritoneal fluid. Aorta and iliac arteries are grossly unremarkable. There has been a surgical fusion between L4, L5, and S1. Metallic stimulator leads are noted over the thoracolumbar junction. There is no significant acute osseous lesion. [facility] Vasyl Valentine MD - 12/30/2021 EXAMINATION: CT ABDOMEN AND PELVIS WITH INTRAVENOUS CONTRAST. CLINICAL HISTORY: ABDOMINAL PAIN COMPARISONS: NONE AVAILABLE TECHNIQUE: Axial images were obtained with intravenous contrast from diaphragm to symphysis pubis. All CT scans at this facility use dose modulation, iterative reconstruction, and/or weight based dosing when appropriate to reduce radiation dose to as low as reasonably achievable. FINDINGS: Liver and spleen are free of significant focal lesion. Gallbladder is unremarkable. There is no significant biliary dilatation. There are several nonobstructing intrarenal calculi, particularly on the left. The largest overlies on the left, and measures approximately 7 mm in diameter. Pancreas, kidneys, and adrenals show no other significant abnormality, apart from the above. The appendix is not significantly enlarged nor inflamed. Urinary bladder slightly distended; its contours are otherwise grossly unremarkable. Prostate is not significantly enlarged. There is no joi intestinal obstruction, pneumoperitoneum, nor significant free peritoneal fluid. Aorta and iliac arteries are grossly unremarkable. There has been a surgical fusion between L4, L5, and S1. Metallic stimulator leads are noted over the thoracolumbar junction. There is no significant acute osseous lesion. IMPRESSION: 1. BILATERAL NONOBSTRUCTING INTRARENAL CALCULI, MORE SO ON THE LEFT. 2. POSTOPERATIVE CHANGES LUMBAR SPINE. 3. NO OTHER SIGNIFICANT ACUTE INTRA-ABDOMINAL ABNORMALITY. [employer] Work Phone: Radiology Study observation (narrative) [facility] Work Phone: CT ABDOMEN PELVIS W IV CONTR AST Additional Contrast? NoneOrdered By: Vasyl Valentine on 12-30-2021 [facility] [employer] Work Phone: Comprehensive Metabolic Pane narayan 12-30-2021 Albumin [Mass/Vol] 4.5 g/dL 3.5 - 4.6 g/dL [facility] [employer] ALP (Bld) [Catalytic activity/Vol] 66 U/L 35 - 104 U/L [facility] [employer] ALT [Catalytic activity/Vol] 19 U/L 0 - 41 U/L [facility] [employer] Anion gap [Moles/Vol] 9 mmol/L [facility] [employer] AST [Catalytic activity/Vol] 17 U/L 0 - 40 U/L [facility] [employer] Bilirubin [Mass/Vol] 0.4 mg/dL 0.2 - 0 .7 mg/dL [facility] [employer] Calcium [Mass/Vol] 9.0 mg/dL 8.5 - 9.9 mg/dL [facility] [employer] Chloride [Moles/Vol] 104 mmol/L [facility] [employer] CO2 [Moles/Vol] 27 mmol/L [facility] [employer] Creatinine [Mass/Vol] 0.94 mg/dL 0.7 - 1.2 mg/dL [facility] [employer] Free PSA/Total PSA [Mass fraction] 7.2 g/dL 6.3 - 8 g/dL [facility] GFR >60.0 60 - PINF [facility] [employer] Comment on above: >60 mL/min/1.73m2 EG FR, calc. for ages 18 and older using the MDRD formula (not corrected for weight), is valid for stable renal function. GFR Non- >60.0 60 - PINF [facility] Comment on above: >60 mL/min/1.73m2 EG FR, calc. for ages 18 and older using the MDRD formula (not corrected for weight), is valid for stable renal function. Globulin (S) [Mass/Vol] 2.7 g/dL 2.3 - 3.5 g/dL [facility] Glucose [Mass/Vol] 84 mg/dL 70 - 99 mg/dL [facility] Potassium [Moles/Vol] 4.2 mmol/L [facility] Sodium [Moles/Vol] 140 mmol/L [facility] Urea nitrogen (BldV) [Mass/Vol] 9 mg/dL 6 - 20 mg/dL [facility] Lactic Acidon 12-30-2021 Lactate [Moles/Vol] 0.9 mmol/L 0.5 - 2. 2 mmol/L [facility] Lipaseon 12-30-2021 Lipase [Catalytic activity/Vol] 21 U/L 12 - 95 U/L [facility] No Panel Informationon 12-30 [facility] Urinalysis with Reflex to Cu ltureon 12-30-2021 Bilirubin Urine Negative Negative [facility] Blood, Urine Negative Negative [facility] Clarity, UA Clear Clear [facility] Color, UA Yellow Straw/Cook ow [facility] Glucose, Ur Negative Negative mg/dL [facility] Ketones Ql (U) Negative Negative mg/dL [facility] Leukocyte esterase Test strip Ql (U) Negative Negative [facility] Nitrite, Urine Negative Negative [place] [facility] pH, UA 6.0 5 - 9 [facility] Protein, UA Negative Negative mg/dL [facility] Specific [place], UA 1.014 1.005 - 1.03 [facility] Urine Reflex to Culture Not Indicated [facility] Urobilinogen, Urine 0.2 NINF [facility] Urine Drug Screenon 12-31-19 22 Amphetamine Screen, Urine Negative Negative <1000 ng/mL [facility] Barbiturate Screen, Ur Negative Negat andree < 200 ng/mL [facility] Benzodiazepine Screen, Urine Negative Negative < 200 ng/mL [facility] Cannabinoid Scrn, Ur Negative Negativ e < 50 ng/mL [facility] Cocaine Metabolite Screen, Urine Negative Negative < 300 ng/mL [facility] Drug Screen Comment: see below [facility] [employer] Comment on above: This method is a scr eening test to detect only these drug classes as part of a medical workup. Confirmatory testing by another method should be ordered if clinically indicated. FENTANYL SCREEN, URINE Negative Negat andree < 50 ng/mL [facility] Interpretation and review of laboratory results Abnormal [facility] Methadone Screen, Urine Negative Negative <300 ng/mL [facility] Opiate Scrn, Ur Positive Abnormal Negative < 300 ng/mL [facility] Oxycodone Urine Positive Abnormal Negative <100 ng/mL [facility] PCP Screen, Urine Negative Negative < 25 ng/mL [facility] Propoxyphene Scrn, Ur Negative Negati ve <300 ng/mL [facility] Albumin [Mass/volume] in Ser um or PlasmaOrdered By: Rody Schulte on 12-29-2021 Albumin [Mass/Vol] 3.8 g/dL 3.2-5.5 [facility] Basophils Auto (Bld) [#/Vol] Ordered By: Rody Schulte on 12-29-2021 Basophils (Bld) [#/Vol] 0.1 10*3/uL 0.0-0.2 [facility] Basophils/100 WBC Auto (Bld) Ordered By: Rody Schulte on 12-29-2021 Basophils/100 WBC (Bld) 0.8 % . [facility] Bilirubin Test strip Ql (U)O rdered By: Rody Schulte on 12-29-2021 Bilirubin Ql (U) Negative Negative [facility] Blood hemoglobin measurement (mass/volume)Ordered By: Rody Schulte on 12-29-2021 Hemoglobin (Bld) [Mass/Vol] 15.0 g/dL 13.0-17.0 [facility] Blood leukocytes automated c ount (number/volume)Ordered By: Rody Schulte on 12-29-2021 WBC (Bld) [#/Vol] 9.1 10*3/uL 4.5-11.0 [facility] Color Auto (U)Ordered By: Karen Schulte on 12-29-2021 Color (U) Yellow Yellow [facility] Creatinine and Glomerular fi ltration rate.predicted panel (S/P/Bld)Ordered By: Rody Schulte on 12-29-2021 Creatinine [Mass/Vol] 1.05 mg/dL 0.64-1.27 [facility] Eosinophils Auto (Bld) [#/Vo l]Ordered By: Rody Schulte on 12-29-2021 Eosinophils (Bld) [#/Vol] 0.2 10*3/uL 0.0-0.45 [facility] Eosinophils/100 WBC Auto (Bl d)Ordered By: Rody Schulte on 12-29-2021 Eosinophils/100 WBC (Bld) 1.9 % . [facility] Erythrocyte distribution wid th Auto (RBC) [Ratio]Ordered By: Rody Schulte on 12-29-2021 Erythrocyte distribution width (RBC) [Ratio] 14.0 % 12.0-14.8 [facility] Estimated glomerular filtrat ion rate (GFR) non- AmericanOrdered By: Rody Schulte on 12-29-2021 GFR/1.73 sq M.predicted among non-blacks MDRD (S/P/Bld) [Vol rate/Area] > 60 mL/Min [facility] Globulin Calc (S) [Mass/Vol] Ordered By: Rody Schulte on 12-29-2021 Globulin (S) [Mass/Vol] 2.9 g/dL [facility] Hematocrit Auto (Bld) [Volum e fraction]Ordered By: Rody Schulte on 12-29-2021 Hematocrit (Bld) [Volume fraction] 45.9 % 38.8-50.0 [facility] Ketones Auto test strip (U) [Mass/Vol]Ordered By: Rody Schulte on 12-29-2021 Ketones (U) [Mass/Vol] Negative Negative [facility] Laboratory - Hematology and Cell countsOrdered By: Rody Ricoore on 12-29-2021 Nucleated RBC/100 WBC (Bld) [Ratio] 0.0 % 0-0.5 [facility] Lymphocytes Auto (Bld) [#/Vo l]Ordered By: Rody Bullimore on 12-29-2021 Lymphocytes (Bld) [#/Vol] 2.7 10*3/uL 1.00-4.8 [facility] Lymphocytes/100 WBC Auto (Bl d)Ordered By: Rody Mendezimore on 12-29-2021 Lymphocytes/100 WBC (Bld) 29.6 % . [facility] MCH Auto (RBC) [Entitic mass ]Ordered By: Rody Mendezimore on 12-29-2021 MCH (RBC) [Entitic mass] 29.7 pg 27.5-35.2 [facility] MCHC Auto (RBC) [Mass/Vol]Or dered By: Rody Bullimore on 12-29-2021 MCHC (RBC) [Mass/Vol] 32.7 g/dL 32.5-35.6 [facility] MCV Auto (RBC) [Entitic vol] Ordered By: Rody Mendezimore on 12-29-2021 MCV (RBC) [Entitic vol] 90.9 fL 83.5-101 [facility] Monocytes Auto (Bld) [#/Vol] Ordered By: Rody Mendezimore on 12-29-2021 Monocytes (Bld) [#/Vol] 0.7 10*3/uL 0.0-0.8 [facility] Monocytes/100 WBC Auto (Bld) Ordered By: Rody Bullimore on 12-29-2021 Monocytes/100 WBC (Bld) 8.1 % . [facility] Neutrophils Auto (Bld) [#/Vo l]Ordered By: Rody Bullimore on 12-29-2021 Neutrophils (Bld) [#/Vol] 5.5 10*3/uL 1.8-7.7 [facility] Neutrophils/100 WBC Auto (Bl d)Ordered By: Rody Bullimore on 12-29-2021 Neutrophils/100 WBC (Bld) 59.6 % . [facility] Nitrite Test strip Ql (U)Ord ered By: Rody Schulte on 12-29-2021 Nitrite Ql (U) Negative Negative [facility] No Panel InformationOrdered By: Rody Schulte on 12-29-2021 Estimated GFR () > 60 mL/Min [facility] Comment on above: GFR estimated refere nce range: According to KDOQI guidelines, <60 ml/min/1.73m2 is sufficient to diagnose a patient with chronic kidney disease. Pharmacy Creatinine Clearance (Chem 113.47 [facility] Platelet mean volume Auto (B ld) [Entitic vol]Ordered By: Rody Schulte on 12-29-2021 Platelet mean volume (Bld) [Entitic vol] 8.0 fL 6.6-10.1 [facility] Platelets Auto (Bld) [#/Vol] Ordered By: Rody Schulte on 12-29-2021 Platelets (Bld) [#/Vol] 293 10*3/uL 150-450 [facility] Protein Auto test strip (U) [Mass/Vol]Ordered By: Rody Schulte on 12-29-2021 Protein (U) [Mass/Vol] Negative Negative [facility] Protein [Mass/volume] in Ser um or PlasmaOrdered By: Rody Schulte on 12-29-2021 Protein [Mass/Vol] 6.7 g/dL 6.1-7.9 [facility] RBC Auto (Bld) [#/Vol]Ordere d By: Rody Schulte on 12-29-2021 RBC (Bld) [#/Vol] 5.05 10*6/uL 3.90-5.60 [facility] Serum or plasma alanine carrillo otransferase measurement without P-5'-P (enzymatic activiOrdered By: Rody Schulte on 12-29-2021 ALT No additional P-5'-P [Catalytic activity/Vol] 21 U/L 10-60 [facility] Serum or plasma albumin/glob ulin mass ratioOrdered By: Rody Schulte on 12-29-2021 Albumin/Globulin [Mass ratio] 1.3 {ratio} [facility] Serum or plasma alkaline karen sphatase measurement (enzymatic activity/volume)Ordered By: Rody Schulte on 12-29-2021 ALP [Catalytic activity/Vol] 58 U/L 32-92 [facility] Serum or plasma anion gap de terminationOrdered By: Rody Schulte on 12-29-2021 Anion gap [Moles/Vol] 13.2 mmol/L 6.0-15.[address] [facility] Serum or plasma aspartate am inotransferase measurement (enzymatic activity/volume)Ordered By: Rody Schulte on 12-29-2021 AST [Catalytic activity/Vol] 23 U/L 10-42 [facility] Serum or plasma calcium boaz urement (mass/volume)Ordered By: Rody Schulte on 12-29-2021 Calcium [Mass/Vol] 9.6 mg/dL 8.2-10.2 [facility] Serum or plasma chloride davion surement (moles/volume)Ordered By: Rody Schulte on 12-29-2021 Chloride [Moles/Vol] 102 mmol/L 95-114 [facility] Serum or plasma glucose boaz urement (mass/volume)Ordered By: Rodyalma Schulte on 12-29-2021 Glucose [Mass/Vol] 97 mg/dL 70-100 [facility] Comment on above: ADA recommended refe rence range Random Glucose Reference Range is dependent on time and content of last meal. Glucose of more than 200 mg/dL in a nonstressed, ambulatory subject supports the diagnosis of Diabetes Mellitus. Serum or plasma potassium me asurement (moles/volume)Ordered By: Rody Schulte on 12-29-2021 Potassium [Moles/Vol] 4.0 mmol/L 3.5-5.1 [facility] Serum or plasma sodium measu rement (moles/volume)Ordered By: Rody Schulte on 12-29-2021 Sodium [Moles/Vol] 137 mmol/L 136-146 [facility] Serum or plasma total biliru bin measurement (mass/volume)Ordered By: Rody Schulte on 12-29-2021 Bilirubin [Mass/Vol] 0.6 mg/dL 0.3-1.2 [facility] Serum or plasma total carbon dioxide measurement (moles/volume)Ordered By: Rody Schulte on 12-29-2021 CO2 [Moles/Vol] 25.8 mmol/L 22.0-30.0 [facility] Serum or plasma urea nitroge n measurement (mass/volume)Ordered By: Royd Schulte on 12-29-2021 Urea nitrogen [Mass/Vol] 12 mg/dL 9 [facility] Specific gravity Auto test s trip (U) [Rel density]Ordered By: Rodyalma Schulte on 12-29-2021 Specific gravity (U) [Rel density] 1.025 1.001-1.03 0 [facility] Urine clarity by refractomet ry automatedOrdered By: Rody Schulte on 12-29-2021 Clarity Refractometry automated (U) Clear Clear [facility] Urine glucose measurement by automated test strip (mass/volume)Ordered By: Rody Schulte on 12-29-2021 Glucose Auto test strip (U) [Mass/Vol] Normal mg/dL Normal [facility] Urine hemoglobin detection b y automated test stripOrdered By: Rody Schulte on 12-29-2021 Hemoglobin Auto test strip Ql (U) Negative Negative [facility] Urine leukocyte esterase det ection by automated test stripOrdered By: Rody Schulte on 12-29-2021 Leukocyte esterase Auto test strip Ql (U) Negative Negative [facility] Urobilinogen Auto test strip (U) [Mass/Vol]Ordered By: Rody Schulte on 12-29-2021 Urobilinogen (U) [Mass/Vol] Normal mg/dL Normal [facility] pH Auto test strip (U)Ordere d By: Rody Schulte on 12-29-2021 pH (U) 5.5 [pH] 5.0-9.0 [facility] Free testosterone measuremen t by LC-MS/MSOrdered By: Paulie Boo on 10-13-2021 Testosterone Free [Mass/Vol] 2.1 pg/mL 6.8-21.5 [facility] Comment on above: Performed at: [facility] [address] [place] [id number] Director Independent: Shakeel Laguna PhD, Phone: [phone] Performed at: [address] [id number] Director Independent: Aftab Hanley MD, Phone: [phone] Laboratory - Chemistry and C hemistry - challengeOrdered By: Paulie Boo on 10-13-2021 Testosterone [Mass/Vol] 194 ng/dL 264-916 [facility] Comment on above: Adult male reference interval is based on a population of healthy nonobese males (BMI <30) between 19 and 39 years old. Jonathan, et.al. JCEM 2017,102;1710-1499. PMID: 88233394. Coding Summaryon 05-06-2021 Coding Summary [employer] 64 SdgoifuuZZi2cGo+PGhlYWQ+P H0DYZFhA65omLBtoV6FS4sNTW 7RDAXBIUALRZ5ITK8ulVZ9HCc jZ9CodbDt HzkmfPDtCS05IUl0WDG4gHdxE NggdH0uiZNoB5d3KiIsMZ97tT 60SHdmDQHiBfF8DpZkhnvyoBT y O3mzRcGklCVdDbu+PHRhYmxlI HdpZHRoPScxMDAlJyBzdHlsZT 2iSe6qCBVtLITwgOqclJTuEwB j j0oaHVXgQCwbJB4diSvlQ2Huq MA9PRWgd4m1Ij42gFO+PHRkIH U3wLvvAHzuw704ZcOod0gbZBO 3 rFBuNNmqWYQ0Z88se6L1DKTsQ DApGEB2lDC5gD0nwSnjoghrO3 CcbOKcFyO3HVS1dCBfzQ3kcWi n pycdmB1pZjd+M58ZFT5PIGEJI I1IRiq9B8IhRxmdtGH+PC90YW TkDV93rYVjvZTqc2jxgTg9EiH w RQQnIHD3bAxrHVkfk4HgACIpC 51ptHVjk1C5RUKhdEjvoGHxKs DasIA6iF3jPFdblzcql8luhmb n Wexvy3tndn24aJ58J30aQJanI DKmTCO0ZEKqHPLskXkxdk3frY 9wIi8+UGkqd4cqm3iucNx6UzV w KBDmmlZepXinDUF1l4NePn82I 3LxoAccb2SlYgw6nh94fUKrv4 J3sVM2ZZfmFWHlfX7eJOmnMmK 6 EHHtQlRbnF97bRXpWCvlSk7je UniwDtrLF7rVSWelrogEOClbC 9wFFXgwOSwiErqSH5xTRBcswc m k213NkPbGBW3RPPmfCHaR8Xlr I8pGeZvGKPqEPEgL0BtfJQkYU zcQ831CXpdWyA8AJThjrWeT8L s RQEeyJcdLxH3e7R9Yn7Oy5Beb riaHOJ5WNfxPLTqPrM5InEgPa V5R7QbBbt2AUJuwPdaCW9zQ4I h FNLzlxyvrmtqpAQ2QGYaFCLys J86sATwIIhjRm7jl1L4g966LP UmRDIboQ17Qt7kuNoaXZFbuTL U xZ8ooeesg0teclueZfQtBPKdM Jc7GTg7MRFrkLhfKpRcEUD1Fr V4CNB7uQDbkU9lrLhwsdiwcV3 w Oyc+T92reA1gZDP2PTR9fjikL MCjsgXtFI00DQ95H6NxXcjzcN FibGU+XJEmqyGojXwiXC4tWmZ j p4whz6DiYXfgX8SwANMhWLeeR ov5KBKxVTW5hJZ2vW7zHQLaUX mic1C9rHR5V3OiglTxup4pk4r s NGPtRVikX40waKTqi2Q4INVne JM1LMHatWgaKrGcnM14Yxd+PG TfbZfqv5GlRbynm7vaq6oxbHf 9 EkLaFKIoxwZlyKbhEYZ3h5ChY m95J32vUNjiUDBbSJWoIMRnTN AvcNgzox0vsK2kLo7+PGNvbCB 3 hAC1sQ1hGDYkJbK3UDlnJ406B eQnvXHiZiaws2dfr6zqoWv9Py SeIQXlheSrmRupMMJ6r2WuOn2 8 K18wWLqnOWLoGNThSHNgGLNkh Cepsx5mkO1yOs2+RZ7cw4hzfp 43cF17mZU+WNFqYBO4nDeuTBi w HGGqwQ7xMXfvEcG9IIXbKgIdc R36bJBhRRduLm0ylBkssUpxBD 1jUSVaaagwv512XeSyf1kyYWD w zSBvZIupGDI5F63bp3U6RGRfC ZYpDUY9oRD0mD3irWbegirijH FklIfyjtIplExtRJssHQxaL84 6 IHRvcDsnPlBhdGllbnQgTmFtZ Uq3U0NlXcf7EDIplJvdAT9txE BzKSusTq4ycInybJcwPR7xPPG p psnhe707YuOwz8gwOKHntLTiS OybMYA9B16zw4N3WREsUAXhFB J1aSI4pN9doZpcvejtkBHbzWf g npKohTlxCVvyWUujI322EZLrp WmyApImvnHuZOGjbID9PR83PB 39gGIti3J4tZT9O2DpSBGoons t pcfvzTC8OOUqAMZmvB94Qp3ed OzsCj7eXXYxHFP2AIKcyVPzM3 RihY8sPiRuLGIhEJTwY0VosBY t UKtgX496CYsqAxO0THHjogSoI 8LvUQMkeCgaTxN9l3T4Fc3JE2 U2KL47IR33qULhg9G1pRQ1T8U h NAMifonawzevlAH9KCNwSMQxy A07Xq3kyGejGa6uYIShBDX1NN ReaSJvD3ImcC7dGeBxBNChWNJ w C3RzqGUrHFzwF685RZpsOiV7C GKlcwIkU9YpODAfhUifPsR9n9 Z4Cf3JRLb4BW34WK45mGPvh2C 5 mHC0B3WsZKAkpqfzlwieqCC2J CZyQCCeiM16Oh4tlJjvGi2pHC QtCVK0BEZhmHNsS9XxwL1dDbG j JCVlJMOkX2SjtODyPTlmJ957C BqeXxW9OWLljnLwJ2NaEHOfsR nmGzZ2c3E7Hl7GKEEkBE64UHW 5 kHF3WW86CL09B3TdGoswoZJsq +PHRhYmxlIHdpZHRoPScxMD RaPqHdbYpsSG7tQy6iRPOuLJZ v nBhhaQHfNgVko0yaGXEjRYafN C3osVfxV8WevQH2LHWch9j9Md 86S56oK7AolIZ+BZIzyYV9fJZ 0 cU0cGpQmKmW4SLqbS746XgUty NCnGkcyw7hiy8ushYb1LeU8XG IjlrWwlVgmQGL3w0AwPn40P99 s IHdpZHRoPSIxNSUiIHZhbGlnb m8bqZ7pCb0+XTOxyHK4yJZ0mF 0gYoGyUqD7PUroY489WeTmhGU v Fbwov1ofu1xthLs7AvOnFGQsf kAxmQbxPBP8z9KbLt80B1WcdB xsa8ErYdz8ix34vBTqk5K4aQA 9 Y4SxLRNlrztofXJwuNqwSD4nT ENnhtjnKPPghU3jWTKoX4v5Ds JjFzG4GLcyY7UxwkN4WOGjyRW g JFyiHZS3C09jb5F3HTHcGKXvE XV4rLK4xA5ewIkczlihoBRgpX kuicIvhHfjZJrvMIsvV483VYH v vZvqZVWvhY8wZIGcaIXurKxwW H8kUQAazhfwUisFLQKYNZUCCH FHRJfdKWoPDD33H6ElKgr8ZSE z yEyeAV8noDWuBTyjIv8wbVbzj EjzEA1gVLSjauwlSNKfbE0nGJ PsiWSqlAptTE0wEPOdasfdj29 0 TtZiHDC4DZYoaIUeZ0FqmI9lQ xEhYDPqJDKwG7ThcQAmAMmqR9 16SYwuPwP8APIkanTsJ8ZuSUC s tKizXkO0r2G6Nu7eRG8sPx6cN Vp7XG78CO29tVBmi0C5aDV6F1 KnZRAadgawmcynnES2ECIdPTE w fL40zAMjTLmmHk3rc5D8q623L FCkMPOezF87Gd2feQsaOEUgaD TZyQ0kecvpx2tarhvtOpEcICH w LKz6QOu5FHEewShoCfNrERX2Z fV4EYC8sATinJ2suMrgvsflkI 9wOyc+PDWkNZArgmG9W8NtZog 0 JZLdrDspSN4saCUhWRrdZe8jl FzjlXijYT0tGJXjolioKCZpjL 1rZEQhkQGoiCgqOL4cLDIhmlc m e959NtKlDEM0SNTpwIXeS5Nkh B7zSpFbNKEpNFSkL3BjmBCfCX mpE022WKenVbY2BSContKvM3W s MIFfzGgjZiQ0u7F5Sx3WOXfST F36ML70rYVgd5Z3uHU5D8KlCY LtaqgpdomqsDE0DEVjYGHkgL1 7 qONiAUotNx3ku3G2t625ANMoZ ZYtaN88Ps3weCucYQKgiQHFxI 9rtkwhf5ykogiiXaLyPLZcZOk 0 EOq4ISGmzSqtFaMhWLA8ApU0E NU6bJTgzM6ynVlyhskpcU5gRc c+P3J2K5SoKshirLE+GN90BLE s DR64rSFeuNRef9hzoGz5QwBtL PMnDEB3bAsyKCwig7QoQPDqQ9 0tqLKcc5W3ZVGuwRfamZPqBaR l sFR8aP9dNVfmjzant9kvqnxfK llwr7hxsx37uQ46D31oETuvIB NbUFQhNANwVTVwgOkava2biR6 w Ii8+MXOmaMJ9dUH0xX6hPsTjF vN9HCqsC922GvRqyCIcTdxtg4 mhg3lhfDe2RpDlEGGapgStkMp u WMW3o4ZuTw69A48nEZjoOAVmP BRsOPIwCWUtqRwvnh8ulU6vYp 8+CW9kb0kyay82qR71zVH+PHR k LGP0fArtTHfvBJCvhP9uTVvbA qU9GAEyZkBghW44xOIvTAouYo 4dtRprcJnsAH0mFHJorxzgd47 0 MzWnt1edYBZwnWFtDYyzDPX3H 73ug8X1ADUbASOfVSI5hDF2iV 1hbGlnbjogbGVmdDsgdmVydGl j WGxqBCtxZ935ZHOrlGnrGzDjs DEnH4hciwCJDZ8kHtkcuXD+PH SzTFS7fPhpQCpsWHBizR3eFOJ p M3p6XgLhBuB5MOckB9SiquA4H WZkfNMtBMRhtTWVtV0qpzmgf8 igxtiuDrXzBPYmXZa3YVy6JEJ s nBqpHzSmGNO6FvS2AUZ8bKXaa R4quQjpduukiR6fQor+RklOOj wvdGQ+LSWvVOH8bKfeCVqlZDZ k aO1nMMOmR6i1AiEcPyG4MDibE 1JozeR9EMEpoRLrPOJbmUBOeK 5ziecao1dqmlroWsBeCTYzIOm 0 KOl5AZDmvVxrRrFhCCS5VsM2C ZY1fSKsuN8mzZkdfugouS2sWo c+TVJOOjwvdGQ+ZJDaIRI1pHn l RVnyCQJprO1qDSOoJ7y0TxXmG sT7VNczW3TdlzN4PGUatEYiGD OlaXENgO8owcqnk5tzydjgJmM w HUKnLDg8ZNy8CBOkqAheZiKiS DE6WwT2KQX5jRLzqT2ggTducx amxZ9qQmf+HMJ3NRD8DD56AE8 8 P4InZwoljNIskPD+PHRhYmxlI HdpZHRoPScxMDAlJyBzdHlsZT 7rNz2oDGToNVBgySalaALgMnB j b2x (more content not included)... [facility] Outside Recordson 05-06-2021 Outside Records [id number]#1.00OTGTI FF [facility] Outside Records [id number]#1.00OTGTI FF [facility] Outside Recordson 05-04-2021 Outside Records [id number]#1.00OTGTI FF [facility] ED Clinical Summaryon 2021 ED Clinical Summary [facility] ? Urgent Care [address] [place], [place] [id number] Clinical Summary PERSON INFORMATION Name: CARMELITA EASTMAN Age: 45 Years Sex: MALE : 1975 MRN: Acct#: Visit Reason: Medical screening exam; BWC F/U- LT ARM, RT ELBOW Arrival: 05/03/2021 11:00:33 Discharge: 05/03/2021 11:40:00 LOS: 000 00:40 Check In: 05/03/2021 11:00:33 Checkout: 05/03/2021 11:40:00 Address: [place] [address] PCP: Misbah Donahue PROVIDER INFORMATION Provider Role Assigned Unassigned Irena Weinberg PA-C ED PA 05/03/2021 11:06:42 Alexi RN, Katerina ED Nurse 05/03/2021 11:09:48 VITALS INFORMATION Vital Sign Triage Latest Temperature Tympanic Temperature Temporal Artery Pulse Rate O2 Sat 97 % 97 % Respiratory Rate Blood Pressure /80 mmHg /80 mmHg MEDICAL INFORMATION Medications Given: Allergy Information: No known allergies PHYSICIAN DOCUMENTATION DISCHARGE INFORMATION: Discharge Disposition: Home Discharge Location: Home PATIENT EDUCATION INFORMATION Instructions: Follow-Up: With: Address: When: Return to this practice , only if needed With: Address: When: Sam Sheriff [address] [place], [place] [id number] Business (1) Comments: SCHEDULED DIAGNOSIS: SLAP shoulder tear; Sprain of right elbow; Sprain of right shoulder; Strain of right elbow and forearm Patient Understands: Yes - Patient/family/caregiver verbalizes understanding of instructions given Comment: Normal [facility] ED Patient Summaryon 022 ED Patient Summary [facility] ? Urgent Care [address] [place], [place] [id number] PATIENT DISCHARGE INSTRUCTIONS Patient Information Name: CARMELITA EASTMAN Age: 45 Years Date of : 1975 Reason For Visit: Medical screening exam; BWC F/U- LT ARM, RT ELBOW Arrival Time: 05/03/2021 11:00:33 Primary Care Physician: Misbah Donahue Attending Physician: Irena Weinberg PA-C Comment: Patient Education With: Address: When: Return to this practice , only if needed With: Address: When: Sam Ludwig[address] [place] [id number] Business (1) Comments: SCHEDULED Medication Information: The exam and treatment you received today in the [facility] Emergency Department were for an urgent problem and are not intended as complete care. It is important for you to follow up with a doctor, nurse practitioner, or physician?s customer relations assistant for ongoing care. If your symptoms become worse or you do not improve as expected and you are unable to reach your usual health care provider, you should return to the Emergency Department, we are available 24 hours a day. For those patients who have received Radiology results, the interpretation of your X-ray as given to you by our Emergency Department physician is only a preliminary report. The Radiologist will review your films and if there is a change in the diagnosis you will be notified by phone. Please make sure you have provided a working phone number so we can reach you if necessary. In the event that you had a lab culture while you were a patient in the Emergency Department, you will be notified by phone if there is a need to change your antibiotic. Please make sure you have provided a working phone number so we can reach you if necessary. [facility] Emergency Department has provided you with a complete list of medications post discharge. Please inform your rate reviewer/provider of your visit and for further instruction on these medications. Any specific questions regarding your chronic medications and dosages should be discussed with your primary care physician(s) and/or pharmacist. Medications to Continue That Have Not Changed Other Medications acetaminophen-oxycodone (acetaminophen-oxycodone 325 mg-5 mg oral tablet) 1 tab(s) Oral every day. to last 30 days ok to fill. Refills: 0. ibuprofen (ibuprofen 200 mg oral capsule) 2 cap(s) Oral Every 4 hours as needed for pain. Visit Information Visit Diagnosis: Diagnoses This Visit Medical screening exam ([id number]) SLAP shoulder tear (S43.439A) Sprain of right elbow (S53.401A) Sprain of right shoulder (S43.401A) Strain of right elbow and forearm (S56.911A) If you received any narcotics, sedation, or any other medication that causes drowsiness for the next 24 hours, unless otherwise directed: ? Do not drive a car. ? Do not operate machinery such as power tools, lawn mowers, drills, sewing machines, or stoves ? Avoid alcoholic beverages and drugs for allergies, nerves, or sleep ? Do not make important personal or business decisions or sign any legal documents Reason for Visit: Medical screening exam - return ot work Allergies: Substance Reaction Symptoms Type Comments No known allergies Drug Vital Signs: Vitals and Measurements this Visit (last charted value for your 05/03/2021 visit) Vital Signs This Visit Temperature Oral: 36.6 DegC Apical Heart Rate: 70 bpm Respiratory Rate: 18 br/min Systolic Blood Pressure: 133 mmHg Diastolic Blood Pressure: 80 mmHg SpO2: 97 % Oxygen Therapy: Room air Measurements This Visit Height: 175 cm Weight: 117.93 kg Body Mass Index: 38.51 kg/m2 Problems List: Problem Onset Comments Pain management Sees Dr. Owusu for back and joint pain Major Tests and Procedures: The following procedures and tests were performed during your ED visit. Laboratory Radiology Cardiology Viruses or Bacteria What?s got you sick? Antibiotics only treat bacterial infections. Viral illnesses cannot be treated with antibiotics. When an antibiotic is not prescribed, ask your healthcare professional for tips on how to relieve symptoms and feel better. Usual Cause Illness Viruses Bacteria Antibiotic Needed Cold/Runny Nose NO Bronchitis/Chest Cold (in otherwise healthy children and adults) NO Whooping Cough Yes Flu NO Strep Throat Yes Sore Throat (except strep) NO Fluid in the middle ear (otitis media with effusion) NO Urinary Tract Infection Yes Antibiotics Aren?t Always the Answer www.cdc.gov/getsmart GET SMART Know When Antibiotics Work U.S. Department of Health and Human Services Centers for Disease Control and Prevention December 2013 [facility] Urgent Care Note- Provideron 05-03-2021 Urgent Care Note- Provider Patient: CARMELITA EASTMAN Age: 45 years Sex: MALE : 1975 Associated Diagnoses: Strain of right elbow and forearm; Sprain of right elbow; Sprain of right shoulder; SLAP shoulder tear Author: Irena Weinberg PA-C History of Present Illness OCCUPATIONAL HEALTH FOLLOW-UP Date of injury: 11/12/20 Claim #: [id number] Employer: [employer] Mechanism of Injury: Altercation between self and someone resisting arrest Diagnosis: Contusion left forearm, Sprain right elbow, Strain right arm 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 On 11/12/[address] when the cloud systems administrator ordered an immediate arrest. The individual resisted arrest and ran. There was a scuffle inside the courtroom, followed by a karol into a hallway where there was another scuffle and then a karol through another set of heavy, wooden doors. When this was all said and done, Mr. Eastman noted blood to his left forearm with some left forearm and wrist pain and swelling, as well as right shoulder, elbow and hand pain. He was seen in our ER where x-rays of his right elbow and left forearm were non acute. He was placed on light duty work and was performing desk work until Dr. Sheriff put him off completely. He cannot actively reach for and use his weapon without significant difficulty and pain. He did not improve after Prednisone. OT kamilla suggested his elbow and forearm pain was referred from a shoulder problem. Dr. Sheriff agreed. Additional condition of right shoulder contusion/sprain was allowed on the claim and a CT arthrogram was performed and showed a SLAP tear. MRI cannot be done because of a spinal stimulator in his back. Symptoms on the left improved, but on the right he continued with difficulty with any behind the back and overhead movement due to pain and stiffness in that arm and shoulder. Right elbow pain also continued, mostly medially that would radiate up and down his arm. This, he states, is improved after his labrum repair. He was getting inpatient and decided to proceed with labrum repair prior to it being allowed and approved on his claim. Since that time he has withdrawn the request to have SLAP tear added to his claim. He reports post op shoulder pain today, 10/07, but elbow is feeling better and he is actively participating in PT. He is due to see Dr. Sheriff again in follow-up towards the end of May. No fevers, chills or malaise. No other joint pains or myalgias. No other numbness, tingling or weakness. Surgical wounds are healing, no other skin rashes or lesions. There are no other associated symptoms. Nothing else makes the symptoms better or worse. Symptoms are described as sudden onset, moderate in nature and persisting to some degree. Health Status Allergies: Allergic Reactions (Selected) No known allergies. Medications: (Selected) Prescriptions Prescribed acetaminophen-oxycodone 325 mg-5 mg oral tablet: 1 tab(s), PO, Daily, to last 30 days ok to fill, 30 tab(s), 0 Refill(s) Documented Medications Documented ibuprofen 200 mg oral capsule: 400 mg = 2 cap(s), PO, q4hr, PRN: for pain, 120 cap(s), 0 Refill(s). Past Medical/ Family/ Social History Medical history: No active or resolved past medical history items have been selected or recorded.. Surgical history: Injection of steroid ([id number]) on 02/01/2021 at 45 Years. Comments: 02/22/2021 16:17 Brittany Alonso LPN shld pain, Dr Olebrennan Arthrogram of shoulder girdle and upper limb joint ([id number]) on 01/18/2021 at 45 Years. Comments: 01/19/2021 15:56 Brittany Alonso LPN right Facet joint nerve block ([id number]) on 10/27/2020 at 45 Years. Comments: 10/27/2020 9:10 Araseli Lord BILATERAL LUMBAR MEDIAL BRANCH BLOCK T12,L1,L2,L3 Epidural steroid injection ([id number]) on 09/15/2020 at 45 Years. Comments: 09/15/2020 10:13 Araseli Lord CAUDAL EPIDURAL STEROID INJECTION Stimulator, device ([id number]) on 04/30/2014 at 38 Years. Comments: 09/22/2020 9:08 Swapna Goodwin stimulator low back placed 2015 Fusion of L4,L5,S1 fused ([id number]) on 04/30/2007 at 31 Years. Cage ([id number]). Comments: 09/22/2020 9:08 Swapna Goodwin bilateral fused cage. Family history: No family history items have been selected or recorded.. Social history: Social & Psychosocial Habits Alcohol 02/22/2021 Alcohol Use: Current Frequency: 1-2 times per month Employment/School 01/19/2021 Status: Employed Exercise 02/22/2021 Duration (average number of minutes): 0 Home/Environment 02/22/2021 Lives with: Children, Self, Spouse Nutrition/Health 02/22/2021 Type of diet: Regular Substance Abuse 01/19/2021 Substance use: Current Frequency: Daily Comment: PRESCRIBED FOR DPN - 03/05/2020 11:23 - Sam Arauz RN Tobacco 02/22/2021 Smoking tobacco use: Never (less than 100 in l Electronic Cigarette/Vaping 02/22/2021 Electronic Cigarette Use: (more content not included)... Normal [facility] Rec[address] 022 Urgent Care Record [facility] ? Urgent Care [address] [place] [address] PATIENT DISCHARGE INSTRUCTIONS Patient Information Name: CARMELITA EASTMAN Age: 45 Years Date of : 1975 Reason For Visit: [facility] F/U- LT ARM, RT ELBOW Arrival Time: 05/03/2021 11:00:33 Primary Care Physician: Misbah Donahue Attending Physician: Irena Weinberg PA-C Comment: Visit Diagnosis: Diagnoses This Visit SLAP shoulder tear (S43.439A) Sprain of right elbow (S53.401A) Sprain of right shoulder (S43.401A) Strain of right elbow and forearm (S56.911A) If you received any narcotics, sedation, or any other medication that causes drowsiness for the next 24 hours, unless otherwise directed: ? Do not drive a car. ? Do not operate machinery such as power tools, lawn mowers, drills, sewing machines, or stoves ? Avoid alcoholic beverages and drugs for allergies, nerves, or sleep ? Do not make important personal or business decisions or sign any legal documents With: Address: When: Return to this practice , only if needed With: Address: When: Sam Sheriff [address] [place] [address] Business (1) Comments: SCHEDULED Medication Information: The exam and treatment you received today in the [facility] were for an urgent problem and are not intended as complete care. It is important for you to follow up with a doctor, nurse practitioner, or physician?s customer relations assistant for ongoing care. If your symptoms become worse or you do not improve as expected and you are unable to reach your usual health care provider, you should return to the Emergency Department, we are available 24 hours a day. For those patients who have received Radiology results, the interpretation of your X-ray as given to you by our Urgent Care physician is only a preliminary report. The Radiologist will review your films and if there is a change in the diagnosis you will be notified by phone. Please make sure you have provided a working phone number so we can reach you if necessary. In the event that you had a lab culture while you were a patient in the Urgent Care, you will be notified by phone if there is a need to change your antibiotic. Please make sure you have provided a working phone number so we can reach you if necessary. [facility] has provided you with a complete list of medications post discharge. Please inform your rate reviewer/provider of your visit and for further instruction on these medications. Any specific questions regarding your chronic medications and dosages should be discussed with your primary care physician(s) and/or pharmacist. Medications to Continue That Have Not Changed Other Medications acetaminophen-oxycodone (acetaminophen-oxycodone 325 mg-5 mg oral tablet) 1 tab(s) Oral every day. to last 30 days ok to fill. Refills: 0. ibuprofen (ibuprofen 200 mg oral capsule) 2 cap(s) Oral Every 4 hours as needed for pain. Visit Information Allergies: Substance Reaction Symptoms Type Comments No known allergies Drug Vital Signs: Vitals and Measurements this Visit (last charted value for your 05/03/2021 visit) Vital Signs This Visit Temperature Oral: 36.6 DegC Apical Heart Rate: 70 bpm Respiratory Rate: 18 br/min Systolic Blood Pressure: 133 mmHg Diastolic Blood Pressure: 80 mmHg SpO2: 97 % Oxygen Therapy: Room air Measurements This Visit Height: 175 cm Weight: 117.93 kg Body Mass Index: 38.51 kg/m2 Problems List: Problem Onset Comments Kidney stones Pain management Sees Dr. Owusu for back and joint pain Patient Education Viruses or Bacteria What?s got you sick? Antibiotics only treat bacterial infections. Viral illnesses cannot be treated with antibiotics. When an antibiotic is not prescribed, ask your healthcare professional for tips on how to relieve symptoms and feel better. Usual Cause Illness Viruses Bacteria Antibiotic Needed Cold/Runny Nose NO Bronchitis/Chest Cold (in otherwise healthy children and adults) NO Whooping Cough Yes Flu NO Strep Throat Yes Sore Throat (except strep) NO Fluid in the middle ear (otitis media with effusion) NO Urinary Tract Infection Yes Antibiotics Aren?t Always the Answer www.cdc.gov/getsmart GET SMART Know When Antibiotics Work U.S. Department of Health and Human Services Centers for Disease Control and Prevention December 2013 [facility] Billing Authorizationson Billing Authorizations [id number] FF [facility] Coding Summaryon 04-11-2021 Coding Summary HTMLBase 64 QvgewwjzTNz4pKp+PGhlYWQ+P I0RGIOgD92ozCFqxP0XY1zTNT 4RQVRMECNBTH9WMG3peYX4PDi jP7MwnwMs GnwgiPBqNQ16LQt9BKJ8pJkfB XjxdL5xvTAfF8q4AdCcFU44uJ 93RItkOTMlUfN5FeZpwqmqvWM y F4twIsLvzQXxPbl+PHRhYmxlI HdpZHRoPScxMDAlJyBzdHlsZT 5vLp7xQUDoISBveXxvfRElYeL j g4vwXNVpCOxcTN9moAopQ2Ecy GB5SYDzz4c8Ql92qQD+PHRkIH M6fNrdBSlsy870HiGrk2gfEWN 3 mQSdGMqaWXT2F30gy4V0VYHkR WGxFCD2cAZ4qY7xgBpkryhtS3 RylBTgRlH1BPT6tQRqwD8ysVi n zuabvJ6cXmp+J34NPO8HVDAVJ B4CBbm2C8AaIxyoxLI+PC90YW FhKV57uOEupCBeg2whvFf8ByO w BQSvOLY0eUgrZGgcp5SpUHXvG 45cvVTlf9I9PZMirKpyiDCkPt VlgCK5kT1yTRbahxcws7ouane n Tdakv9yarx58xE16F29nHAwzD HBqFQB8PCAxUQTiiVrvwl9taF 9wIi8+CDjzp6vro4tqnZp5MyF w AWGqfsWqpEchQOK2r9UzQo75S 6LulXfho8TlDqm3vo69zGKog6 U2lWZ6MAllMIVqxX5pOEtlFtL 6 XOVrDzDseZ43bTFiARjlKh1db GlnzPjmCV6pMGEulkxrZWOnaN 9dJFXsuGEekGynQJ0jCRCqptj m l141EnGwSBN0SXMwoMXbZ1Jkb C8cGwZsCPBcZQXmY7IknAXiOW qiC539OYfjWbW0KKWusoAjN3N s ZYFyjCmuKjS4m9A3Sc1Jh5Lhl ubeXXT0IEniFUAjIgLaFhWnXe F7R1TaSyg9IDLlqPsuYP7qG0J h NJBsnvefehxiyKN0ETRlSVHlw A70cXZjSStaMq7cq2Z0d848HQ SsGMQbtC42In5jdGbbPEDkqWE U dU7yoxcnp2zpuohwKuPiYZOyE Dw0TDh3ATUopAcePeCpMPM9Ej Q6XCE7lHOduS7qkLmeuiugsH0 w Oyc+L66cwY9oOPS9IJD1vzyxB VJldqRdXV28OJ32F0AyTxxwzF FibGU+JOBypyCymQaaPB2iRrI j q7fuu8NgOIqnC2FlMQEaQTihC bp0MUFwFFV3uTN3tC8uYDToZK nws7U1tON3O3QdhqEyle4gi2l s OMGbWBcyW87okMYbv8K8GJEad BB6RGQdoZjwYeYjwJ59Rnf+PG YeyMjle7LzWivps7uds7zofNl 9 XdUgFPBeofFptHehRAS1w6CwE o46X73aXXakUFKqECOyCZZsBT VnfTfwnt9phR7qQs3+PGNvbCB 3 xYY4nP6eVVVrJbV5XAklF702K tFbkXZnMgvbi9swh1adeEn0Zu BcBUBhoeHjjVlvKJF2c5LhAj2 8 X01kEHcxCDMeXPRoAKPjZVVfh Owayn8zxE1qFa6+ED8qc5bykz 09iU54uPV+MEOyFOK2dSuuIJv w LYNeaF1fFAktRmH3KYOeKaWle M72tWQyKIvpMq1tvUlfvDvgJI 0dQBBcyjryb284HyRho9eqDEY w eIOzCIoqRRR7W35xv2W8LKLhA FXhNMR5jWG4oN5ebGoukmnfpX SxtQgltyAtrWeeQWwvDAhnW70 6 IHRvcDsnPlBhdGllbnQgTmFtZ Lb6A4XtMpc9WJIwpMddZE4uxV VsPVquYl3wtNtwxPynOI9mSVO p rhjlr305SnXoa2lwVGCjmLNmX WafRGT5K36nr5B3UQMsSEGkWV K2gWS7rX3fzHfpecwekGBrpXy g twYfdDqrKRxrKVlrG370QBEsc EsfVwOspcNbWNBplCO3HQ85FV 99wYShl8B8hLV6L7SyLTBfpaa t bhweeGJ9ABEpUCNvcV61Et6ri YbeZa1zBKOoFBH4HMFaaXEiC2 TqpZ7kFkPrHCRgAWEwI2NzoJV t EYolD375XLvxRhI0NTQtzaXmD 0BeQXAleRniAdR0r7H1Tj2NJ4 S0SW86LU11mPEse4R6gLS7I3X h XSKzjcmaxgqxwFK2BWNgJLZsl K17Cn8mcJhoGk3uJTRwCEE9AX IehKGkC5WcwX7xTrOsXGFpGEJ w J1LrbUAqNEqlB659LLmnPxU6M UJhclUkP2MaTDPgnPymSoJ9s8 H6Tp6MNRg2NQ63MO09sKZuo3K 5 jAN7H7DuLCDwdcznznkbyCL0C PLvZQLkdG32Mn4frJpjJh0wRY XvTDO1BOQagPYzQ2WqqH6gInE j ASZsNPIsP1IwyXRiVDpxT768J AujViQ8QTRkwkMjU0RrKPIodH wfThU7p7Y6Bq4UOZUrGF43MLP 5 qIH7PI10CW48G4XxEhcfxOPcv +PHRhYmxlIHdpZHRoPScxMD PcXnYjhNjuZC1fHj0mBKDaSAY v wTvxwZVjGgKom5rfIMZfSOxpZ P8cgPdwY4InsKG0WRAvl1z1Ey 10O45rL5OkhWQ+UOBkfED3iMC 0 gD3pAeMaTyZ4KNsdC950NsDmu RJrFqayp2fot9nsjXr5PdB1UM SznwZxyQkqBWL4t5EeAd20F37 s IHdpZHRoPSIxNSUiIHZhbGlnb l1khS2oIj3+NAHudAU8dPK9gU 8pIpXjSsD6RAqfS995VgXjqQF v Cbywy9esq9nmzZx2WnPfWHPuz lMytVckXBQ9q7FwUc10N9GyqG opj7ObGoc4zg98lGPmk5U2fBB 9 B6BpZDYdglwnxWFgdOdyAX3kV TXstpadUKMvvR0xDNApX8w3Zu LqCcE0YMcpM1PceeR9WKElbGY g YJcqBNV5N86oj4X2UXAyGJYeS FK1gRP8dW8wgNhsvoydfIXnaH cumqWgdVntJUlcTLjsV413GVQ v zJikREIwmR9oAGMkoMFjdAlfU Y6hMLAiwxfpHhbHYFZEZOEBQA LDZIxpAAtGFB70F9XtLpg3XFD z yVefNE6dxBHiQGvzAn3mtWghq MgmNY5lWIUosylfRBSbtS3nFK DvwJIonLpvBB0dSNBcgukom67 0 RbGmELR1UQJcvXNzH2UtoQ4qL pRaMJQlSENsH0WlyBDjYEuoH7 75EXvfCdA6BOLgrvMmJ6BpIYV s jEsrJxA6l7I8Fg7yBS2bCb2sE Wt7JX64ZZ67xKKyz6C3uHN8E5 TzFWOmagmziaxupUT8PUNtIJS w uF30qGLyLJikVe9cu8O2w836C WRwCJZdbC57Ts8czDxnYZSqxE HVhW1puzlbc7wbdsjmBlPsSOB w ETj4ATn7LQQflYwmAzUwZCE4Y uR3VQE9mTUnzR7tiHiufdeusD 9wOyc+FOWhCBUpaiL4S9UdMmk 0 UHPlqBnyRE5otZLnFFblEf3ny VqnoDlfYB0lSNSgenjnPHFulN 4yFLLkuLJmuHswTN2uPFCeddq m j052CbViGVO9ONTdzSKsX0Xfx M6yMfOnJZFfYOLdX7WxhPVwMP cuE242AWdxDyG5LMTrnrBtV3G s GERwtAakSkY3q9E3Xq8PYLgPK T12GV12lMKbz0H8oSE7P1FeHB WpfhaaifzvhDY3DVXkWDJamD7 7 yCOxCTcuIn0sg9K5i617JNVpA HVhlQ65Pm1qdBktTJMgyDXIzE 2nbbdhf0mflmviFcTmMVSbZBo 0 BCd6TUNeoUyeDoTpLEZ1HpX2I PI3tSQgtK4nvDbhwjepqD8mQu c+T6F3C2QkDowdrPV+ZR04FVY s LP53kQWkiPFty1qzcMk4WmUjH LVcZGZ4vYtbIHtwn6LpJKCoK7 7kyYUsj8C9EZAhqHlupTFfFqU l qDB4lD6nBPfizsoum3idzdmsR vbjn0pwnd31nH26X20iWFnwZP CqJTZiCXOlDSFgwPkvyl1nwD0 w Ii8+XTOybIK1rFS9jS4eXyVlE kI0WXdxN547AxAjxOZpFjfzf5 hcg0sziVm4HtCyNCTdhaLxaHg u XXP2t8IrZt04B64uWDxzORGaD PQdWBKvLXEsnNtwct1lbF6xKz 8+YI1ef8vyxs96eM99oSQ+PHR k REY7dVizYKihDGSehW2zCBqaW vW4LMNsJyZswJ03oVCoQUhgFm 2acYamyAdmLF3fCCNtdekry35 0 XvFyj7tnQLPngIDmTPguMEP1J 95ak5Q4LGLeOLVhUCS1vKO4pY 1hbGlnbjogbGVmdDsgdmVydGl j RFiqBYkxJ875SEXmqGsdWnKne UMhL8tyisSFRS7qBmbfjPE+PH DhSHQ3iIltWCmrTJOmsY3fQDI p X6u0PzAzDfS7DLjgL0KtfwD4B POzyDXvGFUqsMKFlS8xmedrd1 zstodwZzJgYQDuWNi1VPx8NOZ s uYerOhWxVCL1RiM8JLB0mMIaz D7epImeuvfizW8tUdr+RklOOj wvdGQ+YMGxOOC2nJxiMJojCYW k sR7eINIjO8h9WmYlZzD7WCwsR 3FutmZ0ZOMusQAyMOJmzUCVgB 2xmnrbl2eqvpyhBpQxXWIkLSd 0 KLn9QEGrrTrrNhKuBFL8DsP4A SA0aCOtzL5zpQqpanlclF5yOc c+TVJOOjwvdGQ+GZQmZKM6eTk l DSjuEDEpdO5iPRKpH3a8KyIpK pC1QNpzU2QudvC9NIWjsPPtRE MdqLSQyC1bxgffx6aijmtqNvN w VIYkOSf2YMf7EPLnjUnjSwUqX SA5NiO0QVR8gIFxvH2aeRuqex yzlS6jBhf+GPK8DJQ7TI57PC7 8 J0MuRpfjqSDdhOU+PHRhYmxlI HdpZHRoPScxMDAlJyBzdHlsZT 8jKw8qNCDrOBVjnGaojLYjJaR j b2x (more content not included)... [facility] Outside Recordson 04-01-2021 Outside Records [id number] FF [facility] ED Clinical Summaryon 2020 ED Clinical Summary [facility] ? Urgent Care [address] [place] [id number] Clinical Summary PERSON INFORMATION Name: CARMELITA EASTMAN Age: 45 Years Sex: MALE : 1975 MRN: Acct#: Visit Reason: Medical screening exam; [facility] F/U- RT ELBOW INJURY Arrival: 03/31/2021 09:54:22 Discharge: 03/31/2021 10:58:00 LOS: 000 01:04 Check In: 03/31/2021 09:54:22 Checkout: 03/31/2021 10:58:00 Address: [address] [place] [id number] PCP: Misbah Donahue PROVIDER INFORMATION Provider Role Assigned Unassigned Yareli Gould REDUCING SALON ATTENDANT Nurse 03/31/2021 09:55:43 03/31/2021 10:40:55 Irena Weinberg PA-C ED PA 03/31/2021 10:17:46 Yareli Gould REDUCING SALON ATTENDANT Nurse 03/31/2021 10:41:03 VITALS INFORMATION Vital Sign Triage Latest Temperature Tympanic Temperature Temporal Artery Pulse Rate O2 Sat 98 % 98 % Respiratory Rate Blood Pressure /79 mmHg /79 mmHg MEDICAL INFORMATION Medications Given: Allergy Information: No known allergies PHYSICIAN DOCUMENTATION DISCHARGE INFORMATION: Discharge Disposition: Home Discharge Location: Home PATIENT EDUCATION INFORMATION Instructions: Follow-Up: With: Address: When: Return to this practice Comments: May 17 at 1 p.m. DIAGNOSIS: Abrasion of left forearm; Contusion of left forearm; Contusion of right shoulder; SLAP shoulder tear; Sprain of right elbow; Sprain of right shoulder; Strain of right elbow and forearm Patient Understands: Yes - Patient/family/caregiver verbalizes understanding of instructions given Comment: Normal [facility] ED Patient Summaryon 021 ED Patient Summary [facility] ? Urgent Care [address] [place], [place] [id number] PATIENT DISCHARGE INSTRUCTIONS Patient Information Name: CARMELITA EASTMAN Age: 45 Years Date of : 1975 Reason For Visit: Medical screening exam; [facility] F/U- RT ELBOW INJURY Arrival Time: 03/31/2021 09:54:22 Primary Care Physician: Misbah Donahue Attending Physician: Irena Weinberg PA-C Comment: Patient Education With: Address: When: Return to this practice Comments: May 17 at 1 p.m. Medication Information: The exam and treatment you received today in the [facility] Emergency Department were for an urgent problem and are not intended as complete care. It is important for you to follow up with a doctor, nurse practitioner, or physician?s customer relations assistant for ongoing care. If your symptoms become worse or you do not improve as expected and you are unable to reach your usual health care provider, you should return to the Emergency Department, we are available 24 hours a day. For those patients who have received Radiology results, the interpretation of your X-ray as given to you by our Emergency Department physician is only a preliminary report. The Radiologist will review your films and if there is a change in the diagnosis you will be notified by phone. Please make sure you have provided a working phone number so we can reach you if necessary. In the event that you had a lab culture while you were a patient in the Emergency Department, you will be notified by phone if there is a need to change your antibiotic. Please make sure you have provided a working phone number so we can reach you if necessary. [facility] Emergency Department has provided you with a complete list of medications post discharge. Please inform your rate reviewer/provider of your visit and for further instruction on these medications. Any specific questions regarding your chronic medications and dosages should be discussed with your primary care physician(s) and/or pharmacist. Medications to Continue That Have Not Changed Other Medications acetaminophen-oxycodone (acetaminophen-oxycodone 325 mg-5 mg oral tablet) 1 tab(s) Oral every day. to last 30 days ok to fill. Refills: 0. ibuprofen (ibuprofen 200 mg oral capsule) 2 cap(s) Oral Every 4 hours as needed for pain. Visit Information Visit Diagnosis: Diagnoses This Visit Abrasion of left forearm (S50.812A) Contusion of left forearm (S50.12XA) Contusion of right shoulder (S40.011A) Medical screening exam ([id number]) SLAP shoulder tear (S43.439A) Sprain of right elbow (S53.401A) Sprain of right shoulder (S43.401A) Strain of right elbow and forearm (S56.911A) If you received any narcotics, sedation, or any other medication that causes drowsiness for the next 24 hours, unless otherwise directed: ? Do not drive a car. ? Do not operate machinery such as power tools, lawn mowers, drills, sewing machines, or stoves ? Avoid alcoholic beverages and drugs for allergies, nerves, or sleep ? Do not make important personal or business decisions or sign any legal documents Reason for Visit: [facility] F/U Right elbow injury Allergies: Substance Reaction Symptoms Type Comments No known allergies Drug Vital Signs: Vitals and Measurements this Visit (last charted value for your 03/31/2021 visit) Vital Signs This Visit Temperature Oral: 36.4 DegC Peripheral Pulse Rate: 82 bpm Respiratory Rate: 16 br/min Systolic Blood Pressure: 127 mmHg Diastolic Blood Pressure: 79 mmHg SpO2: 98 % Oxygen Therapy: Room air Measurements This Visit Height: 175 cm Weight: 117.93 kg Body Mass Index: 38.51 kg/m2 Problems List: Problem Onset Comments Kidney stones Pain management Sees Dr. Owusu for back and joint pain Major Tests and Procedures: The following procedures and tests were performed during your ED visit. Laboratory Radiology Cardiology Viruses or Bacteria What?s got you sick? Antibiotics only treat bacterial infections. Viral illnesses cannot be treated with antibiotics. When an antibiotic is not prescribed, ask your healthcare professional for tips on how to relieve symptoms and feel better. Usual Cause Illness Viruses Bacteria Antibiotic Needed Cold/Runny Nose NO Bronchitis/Chest Cold (in otherwise healthy children and adults) NO Whooping Cough Yes Flu NO Strep Throat Yes Sore Throat (except strep) NO Fluid in the middle ear (otitis media with effusion) NO Urinary Tract Infection Yes Antibiotics Aren?t Always the Answer www.cdc.gov/getsmart GET SMART Know When Antibiotics Work U.S. Department of Health and Human Services Centers for Disease Control and Prevention December 2013 [facility] Urgent Care Note- Provideron 03-31-2021 Urgent Care Note- Provider Patient: CARMELITA EASTMAN Age: 45 years Sex: MALE : 1975 Associated Diagnoses: Strain of right elbow and forearm; Sprain of right elbow; Sprain of right shoulder; SLAP shoulder tear; Contusion of right shoulder; Contusion of left forearm; Abrasion of left forearm Author: Irena Weinberg PA-C Basic Information Additional information: Chief Complaint from Nursing Triage Note : Chief Complaint 03/31/2021 9:58 EST Chief Complaint [facility] F/U Right elbow injury . 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 On 11/12/[address] when the cloud systems administrator ordered an immediate arrest. The individual resisted arrest and ran. There was a scuffle inside the courtroom, followed by a karol into a hallway where there was another scuffle and then a karol through another set of heavy, wooden doors. When this was all said and done, Mr. Eastman noted blood to his left forearm with some left forearm and wrist pain and swelling, as well as right shoulder, elbow and hand pain. He was seen in our ER where x-rays of his right elbow and left forearm were non acute. He was placed on light duty work and was performing desk work until Dr. Sheriff put him off completely. He cannot actively reach for and use his weapon without significant difficulty and pain. He did not improve after Prednisone. OT kamilla suggested his elbow and forearm pain was referred from a shoulder problem. Dr. Sheriff agreed. Additional condition of right shoulder contusion/sprain was allowed on the claim and a CT arthrogram was performed and showed a SLAP tear. MRI cannot be done because of a spinal stimulator in his back. Symptoms on the left have improved, but on the right he continues with difficulty with any behind the back and overhead movement due to pain and stiffness in that arm and shoulder. He continues with right elbow pain, mostly medially that shoots up and down his arm, especially when he tries to fully extend and flex the arm. He has numbness/tingling in his right hand that comes and goes with changes in position, mostly of his fourth and fifth fingers and part of his middle finger. His right hand feels weak since this happened and it will swell. He will wake with 8/10 on the right if he is sleeping on that side and finds it difficult to sleep for more than a few hours at a time due to pain. With any repetitive use of this arm he notes increased pain and tingling throughout his arm and right hand. No fevers, chills or malaise. No other joint pains or myalgias. No other numbness, tingling or weakness. Ecchymosis better, abrasion is healed, no other skin rashes or lesions. There are no other associated symptoms. Nothing else makes the symptoms better or worse. Symptoms are described as sudden onset, moderate in nature and persisting. There have been no changes in his symptoms since being placed off of work. We are awaiting a hearing which was postponed again. He recently saw Dr. Sheriff is ready to proceed with surgery as soon as it is approved. He told him he could resume light work as he tolerates if he'd like to. Health Status Allergies: Allergic Reactions (Selected) No known allergies. Medications: (Selected) Prescriptions Prescribed acetaminophen-oxycodone 325 mg-5 mg oral tablet: 1 tab(s), PO, Daily, to last 30 days ok to fill, 30 tab(s), 0 Refill(s) Documented Medications Documented ibuprofen 200 mg oral capsule: 400 mg = 2 cap(s), PO, q4hr, PRN: for pain, 120 cap(s), 0 Refill(s). Past Medical/ Family/ Social History Medical history: No active or resolved past medical history items have been selected or recorded.. Surgical history: Injection of steroid ([id number]) on 02/01/2021 at 45 Years. Comments: 02/22/2021 16:17 Brittany Alonso LPN shld pain, Dr Olexa Arthrogram of shoulder girdle and upper limb joint ([id number]) on 01/18/2021 at 45 Years. Comments: 01/19/2021 15:56 Brittany Alonso LPN right Facet joint nerve block ([id number]) on 10/27/2020 at 45 Years. Comments: 10/27/2020 9:10 Araseli Lord BILATERAL LUMBAR MEDIAL BRANCH BLOCK T12,L1,L2,L3 Epidural steroid injection ([id number]) on 09/15/2020 at 45 Years. Comments: 09/15/2020 10:13 Araseli Lord CAUDAL EPIDURAL STEROID INJECTION Stimulator, device ([id number]) on 04/30/2014 at 38 Years. Comments: 09/22/2020 9:08 Swapna Goodwin stimulator low back placed 2015 Fusion of L4,L5,S1 fused ([id number]) on 04/30/2007 at 31 Years. Cage ([id number]). Comments: 09/22/2020 9:08 Swapna Goodwin bilateral fused cage. Family history: No family history items have been selected or recorded.. Social history: (more content not included)... Normal [facility] 021 Urgent Care Record [facility] ? Urgent Care [address] [id number] PATIENT DISCHARGE INSTRUCTIONS Patient Information Name: CARMELITA EASTMAN Age: 45 Years Date of : 1975 [facility]: [id number] Reason For Visit: Medical screening exam; [facility] F/U- RT ELBOW INJURY Arrival Time: 03/31/2021 09:54:22 Primary Care Physician: Misbah Donahue Attending Physician: Irena Weinberg PA-C Comment: Visit Diagnosis: Diagnoses This Visit Abrasion of left forearm (S50.812A) Contusion of left forearm (S50.12XA) Contusion of right shoulder (S40.011A) Medical screening exam ([id number]) SLAP shoulder tear (S43.439A) Sprain of right elbow (S53.401A) Sprain of right shoulder (S43.401A) Strain of right elbow and forearm (S56.911A) If you received any narcotics, sedation, or any other medication that causes drowsiness for the next 24 hours, unless otherwise directed: ? Do not drive a car. ? Do not operate machinery such as power tools, lawn mowers, drills, sewing machines, or stoves ? Avoid alcoholic beverages and drugs for allergies, nerves, or sleep ? Do not make important personal or business decisions or sign any legal documents With: Address: When: Return to this practice Comments: May 17 at 1 p.m. Medication Information: The exam and treatment you received today in the [facility] were for an urgent problem and are not intended as complete care. It is important for you to follow up with a doctor, nurse practitioner, or physician?s customer relations assistant for ongoing care. If your symptoms become worse or you do not improve as expected and you are unable to reach your usual health care provider, you should return to the Emergency Department, we are available 24 hours a day. For those patients who have received Radiology results, the interpretation of your X-ray as given to you by our Urgent Care physician is only a preliminary report. The Radiologist will review your films and if there is a change in the diagnosis you will be notified by phone. Please make sure you have provided a working phone number so we can reach you if necessary. In the event that you had a lab culture while you were a patient in the Urgent Care, you will be notified by phone if there is a need to change your antibiotic. Please make sure you have provided a working phone number so we can reach you if necessary. [facility] has provided you with a complete list of medications post discharge. Please inform your rate reviewer/provider of your visit and for further instruction on these medications. Any specific questions regarding your chronic medications and dosages should be discussed with your primary care physician(s) and/or pharmacist. Medications to Continue That Have Not Changed Other Medications acetaminophen-oxycodone (acetaminophen-oxycodone 325 mg-5 mg oral tablet) 1 tab(s) Oral every day. to last 30 days ok to fill. Refills: 0. ibuprofen (ibuprofen 200 mg oral capsule) 2 cap(s) Oral Every 4 hours as needed for pain. Visit Information Allergies: Substance Reaction Symptoms Type Comments No known allergies Drug Vital Signs: Vitals and Measurements this Visit (last charted value for your 03/31/2021 visit) Vital Signs This Visit Temperature Oral: 36.4 DegC Peripheral Pulse Rate: 82 bpm Respiratory Rate: 16 br/min Systolic Blood Pressure: 127 mmHg Diastolic Blood Pressure: 79 mmHg SpO2: 98 % Oxygen Therapy: Room air Measurements This Visit Height: 175 cm Weight: 117.93 kg Body Mass Index: 38.51 kg/m2 Problems List: Problem Onset Comments Kidney stones Pain management Sees Dr. Owusu for back and joint pain Patient Education Viruses or Bacteria What?s got you sick? Antibiotics only treat bacterial infections. Viral illnesses cannot be treated with antibiotics. When an antibiotic is not prescribed, ask your healthcare professional for tips on how to relieve symptoms and feel better. Usual Cause Illness Viruses Bacteria Antibiotic Needed Cold/Runny Nose NO Bronchitis/Chest Cold (in otherwise healthy children and adults) NO Whooping Cough Yes Flu NO Strep Throat Yes Sore Throat (except strep) NO Fluid in the middle ear (otitis media with effusion) NO Urinary Tract Infection Yes Antibiotics Aren?t Always the Answer www.cdc.gov/getsmart GET SMART Know When Antibiotics Work U.S. Department of Health and Human Services Centers for Disease Control and Prevention December 2013 Normal [facility] Provider Orderson 03-15-2021 Provider Orders [id number] [facility] Coding Summaryon 02-25-2021 Coding Summary HTMLBase 64 LcwfclgkFGg4vJs+PGhlYWQ+P J4OLGZmH29rcXRfhN8MN6nTVL 1ARAGUEXWBEK7MNW8sdAY6RSf dR5OndfVi GbxfaUDkFO43CAx2XUE8lRomL HrhuY9gxNLxI8f2MfNwJD03lS 26YLlwHTBaXdZ8ScErrbiknNX y J9mqGcEiwYWvRme+PHRhYmxlI HdpZHRoPScxMDAlJyBzdHlsZT 6qZs0aGIJlXVAbqUroeMUuQhS j g3vgWGUfXNfwOG4lvYtyP9Mav JT1UWEvn1b6Is07zHL+PHRkIH U3cErzKEopa682WbBbv6wjIHR 3 xDPvOPcrUAZ0C69bh8P1DHLaJ KSkAMZ2mZS1lH5wkMnqawblZ2 CvjDVnJxK1QTX5kEMpkQ1wqNo n qukrnD7wUto+V12NIF8LGOJPL S0YWhp8G0XuQbnltET+PC90YW FkAD61mVGodWCtn2dcnLt6NxG w ZBRsNIU9wOgvTAzoj7MePVArS 15msXZxy0L9FZKpvNppdIJgOv IzjOD5pZ7fGSsglkdfv1yympf n Cpggj5qvnm72rF14L98kKYimV RKzBAY1CSWhVGPykWvebd3pzF 9wIi8+HLjjj9ezk0iogBf7FpK w MZSrhgGdvPoqTTG6v1QmLx25L 1RsxWjyw0ZqRqr5dl15cXGbp4 F7uTW8STwuNXYbkY7bGZxfRsP 6 IKPfIgQmjK63yEEgMRtfLh3zf VwlvKleET9xIBXazcosFOPfcS 5tOBSktQLfbWtzYG2cKATsfxg m l209QqSzEMV9HEJsiPVkA3Mou F4uGuAzRLOrHAAyK1LmoNYmIG etZ430NXjgQvT6TLYmluSeX2D s IJHbiIomFrL5h6A9Wk0Gv2Hlp ywjPZZ9YJsmAWToWiO5XxZiAz D1X2EuHen3WUYmgDabUS1aW5C h ZDStxkzmddyhnSI2JAEyJECzj H83kBLlSSjcLr5jx7P1l763XN MnVMDbwL86Sd8hzLznQPXdqKZ U aL6dalgbj6mbfdzvVlNlNSYnM Jl3VJy0BZYmvSyvNsTdGJA8Zt F2QWT6fFXubH5gpNheddiyrG0 w Oyc+K06bnS7sQJX3HHH8vsyvS BOqqqYwRH98CL72D4ByHzclfC FibGU+DLSpzfAkzZjeOX3wAeG j s0phl5KaRPjqT3QnCDUeCPhsT ep5UTPbMXA1lNI3gY8qUIJkCY tdo4A2sJT3T3TcktMpks2qu7f s YFBdUUjtS40pzQSmn1Q8XPKcd ZW1QKWakRxmPsOjbC64Lxi+PG LyuLrwa5UvPiqbd0moz6kwqKf 9 FiInWEUnbiFotWbyXMY2u5OsN y86R26yYRzeGMVkANZfHWKxTC DuoOlfxk8jnI9sSp4+PGNvbCB 3 xNL1mO3lGBXaUjW0GBeqR148Z cRhiZTzWxqmc9puj7brhQz3Uf CgBBHleiHjtOatTSD7j8MwAs8 8 N52cPCmnJYEzZBRyLEAfBIFpp Cvixe2rsZ1sVp7+VP3wp1fxsw 37kM34qHR+OLNrQDC7kYiaEUf w MTMmsK5eRSjvBtN8SVYuTzMxl X11sNJgIDvgGr3whDuhmDnpMU 3eZNHjphbly147XsOnn1opZSU w eCTdYIaoKNY7N85ak8J6PIWrZ AYpSOF7oVN2xV2yuBfupqmlbO QmcQwgspKyrHiqXPepNEcgR97 6 IHRvcDsnPlBhdGllbnQgTmFtZ Wv4N0KcXzl8TWHlsWypBP5lpN TgXWjzYo7pjGvgfPckPS3tRVN p owmlf720RhLny9gmROMdlTQmB NrhCQU2D18uh7R0VLTmDWJpYS V8zWT0tD3byBhpocrkeXDlqLd g zgYhnNgiQKblLMtwW078TAEqz GneDaLkqlOqKOHwiRZ8AE42DR 35jIPkc0A5gXD1M8QdWJQmwab t rhankZM3VKDgQPDinK09Bx5em JgbVn0hLSAbDCY3YSJugKWjG3 VbwM9aDmZbCIJaDYZwA5MkoCF t LCluF617RDylQgJ7MCWbcaQsZ 2MnZZJwcHssRvJ7p4Y6Ot9LW1 I9TH39RB66fSNly3B3eXW1I9K h UJOsmnlzxbedtYJ2CWAqOGSun B08Qf5swHxrDt1xKDBgEJM9WD EwxLRgC6VbkG2zYnEiCDDhCNA w Z2PwvZGxIFgsV486ZBwpNgF5X AQfzqEzR1NhAPUjpFjtHuJ9z3 J2Jo1BEEe4NR84KM16oXMfr4N 5 cNB9T2XuGIRvuexefnmvuRK7Z PYtYQGleD54Rx3idMzjVv4dCP BiFVK4RIAdmESiT0VicE4hYdX j YSNcWDErI3RahUIgVXnwU404F IzkWpY2QEXtbsWhJ6DcYANvkM moRxI1c9O7Om4PYCEwVO44DDC 5 dSY5LX81YK43O3CxDojbkAIti +PHRhYmxlIHdpZHRoPScxMD NuGdRjcNgiYN3tAv1lRWEsUMW v wPcvbSSbMbBka3dgLZWqMDmjU L9rqZjeW3PtpZA7PBBoo9l5Xb 43T16yL2ZwtGA+OYRsqXI4nAN 0 cQ7fXdBbTxY7YPldM988ZlAsq WFiSmqkn0wql8llbCx1EkO9TS OqmaZsoWfmRRQ7t0JvLk41T77 s IHdpZHRoPSIxNSUiIHZhbGlnb i8giK3hZq2+OOApnWF6nTB0lK 9xIvPdMtH5JZazX055FnFbtDE v Mpffb9mlu5mihGt9HkGcXTJbq jZyrDbvHZV4u3PlYs88H4WueB ktm1BbJsd1dp05vOAmm7Q6iAO 9 O1KkUTCqlouijFXleVbiGD1oB UOcqdgqCTHjgF3oPNFgH4i3Qi UkUnD9NKmtP5OwbnU0DJKpiJK g UHwpWRX3W99tu8V9WTLsSVBfF KH8gCK4fV6keVasqgmqoOBauF wdasGtlHcgLWmgOPajJ405ECR v lLjsQKQleA2hLYCbpWNdlGemU D2iNLOipmefRobFONAOJZBQDD CTNVyeYQlUJG08K7VkYyv7CSK z mEzzZO3zjFYuNItoSf7wxOlby GixDH0gOOFykuodVROnzN8qJF MqsZRaaZweFB3uGVHwcktji65 0 UfOrQOW2VVEtcNGtI9FxtE6sF nTbTUKxBYUsJ4HhqVYoASwdG0 86FCchHeG7YEOvvaVyL3RmCGR s uWnlRtF4f3A6Lz9rGL6cEh1tG Qp8EU41KZ97jCDqo6B8wHJ3T6 GzUICqewczavefgBJ0KGHrUNT w gP84bJYbMRppEt6ti7G4y256A LEqASGhaK19Ei0ouHgnJWTipO URjE3nnjulp2uklbyoRsDsLKV w KXe4YKb1RPNdyAtxJbDmGQO4A pO5KQM3nLHacG7alPctolnkrQ 9wOyc+ZJSoQWPyqmZ3U3CwEph 0 TOBxjTvgCK6wiOMjRZeyZm7kr XgzgEheIV8xXREgljusGVLfdI 6hMQCrhRHucOnlZQ7nFYRwypr m a399ApKzBGO8JIHlsEDjL9Czv B5kMfAvMUNkPOErH2LgoANqCM buD510SRyjTuQ1WAYitcUxU2J s YBVbqXnoFiS5s6A0Qd0OSEyXE B42SA35eBAys6Y3pRX7C7AdPV CkuuaiwkdchMR5OPAdUXYwkN3 7 hHElWTusPt2un9W6j452RHWdR SXvkF83Ge1xrTcmILUpzKXCcN 9pcyucm4sftorrWwAkMPBhTKb 0 FEy8ICUfqBgfLmSmHOZ1EuT5U CB3wDPnuA9anPsguwosqM7dXs c+Y8T4G7HlQdpgeLA+AD75BIJ s HM44sEPpaQNgr6cgfFi6SqZtL CHvIDN6lZrvOKwgi8OcMAQmV6 4dyMPln1P6TWFexRswgRUuNmD l eEW0nW9cSYzyiaiow5oimsrjG iimc4owgr09oI12A87gAZhuAC LuHOMbGHPnWOHakDwswp6rhW8 w Ii8+HNKmkVY8lVH6wN6sWoCkN gK0OCjgN085DxStdXRxGtvqg2 lrp6pozWx3OzOdERUferPkfKr u IEA3r1ZdHa30Q01eZOvjUXQbB BSsRJQtEHCxuJwwsa8elD9xGz 8+FB7fq6tlvk72kE17bBH+PHR k JRU7wBzyEPrkWQQtxQ7rNVtoX xF5PUPmEpFjeY75hGEqHWomQv 7dwRhyaTusMN9sIIJhcnxym39 0 LxYiq5zaZGKstNDoOJrlQXM0S 17tl2P7ZRLvAVYaUMG9hAV2zY 1hbGlnbjogbGVmdDsgdmVydGl j GAeoSJzpB284MIKhlYprYaJzg WIpU4dajaHYYN0dXspfpJH+PH CfQHW5dBmrRAzvZGEnhX9rIFH p M7b4IqQjUhC8HRktT5CezyO3C KDhrKTcBXLttJTCtS5aljnaa1 clgbqpEkSqBAFkPRb5JCb5JKQ s bSmaVdSeYID1VyG3DPD6uBFsq K4ogAkyvdqzsG1mTfw+RklOOj wvdGQ+VQHqIEU1eLofIUzyGLV k iT1lPGHvB1k2SuSrDdL3ISpsS 5JzntT5FAGwgOOsUEMpwYVEtQ 2kqpyeo7ahokgpLfXwAISxSIf 0 EQk5OUUwwGpeKvNtKGD8PaK1K XP5vTYhnD3ygEubomqagR4hNa c+TVJOOjwvdGQ+VJAeZVZ9jOd l FRneGJLpvO4jARBwS2l3ZaNaD mH7TJsdQ1LsahJ8GHSccILwEN MjiSKEsN3lljfhn1tawcfsEkR w GCLxHLw2DZf6JMVktFozGkVsP OE0HvA1TVQ2yHIxcN9cfWjsqi lusX7bCjv+UTK1UQX4MM38NX4 8 B3VzArvunYEkvZR+PHRhYmxlI HdpZHRoPScxMDAlJyBzdHlsZT 3vZr6iHWZhKNClfZpduHYiDdR j b2x (more content not included)... [facility] Outside Recordson 02-23-2021 Outside Records [id number] FF [facility] ED Clinical Summaryon 2020 ED Clinical Summary [facility] ? Urgent Care [address] [place] [address] Clinical Summary PERSON INFORMATION Name: CARMELITA EASTMAN Age: 45 Years Sex: MALE : 1975 MRN: Acct#: Visit Reason: Medical screening exam; C F/U RT ELBOW INJURY Arrival: 02/22/2021 15:51:36 Discharge: 02/22/2021 17:22:00 LOS: 000 01:31 Check In: 02/22/2021 15:51:36 Checkout: 02/22/2021 17:22:00 Address: [address] [place] [id number] PCP: Misbah Donahue PROVIDER INFORMATION Provider Role Assigned Unassigned Irena Weinberg PA-C ED PA 02/22/2021 15:53:03 Brittany Arboleda LPN ED Nurse 02/22/2021 16:00:31 VITALS INFORMATION Vital Sign Triage Latest Temperature Tympanic Temperature Temporal Artery Pulse Rate O2 Sat 95 % 95 % Respiratory Rate Blood Pressure /90 mmHg /90 mmHg MEDICAL INFORMATION Medications Given: Allergy Information: No known allergies PHYSICIAN DOCUMENTATION DISCHARGE INFORMATION: Discharge Disposition: Home Discharge Location: Home PATIENT EDUCATION INFORMATION Instructions: Follow-Up: With: Address: When: Return to this practice Comments: Mar 31 at 10 a.m. DIAGNOSIS: Abrasion of left forearm; Abrasion of left forearm, sequela; Contusion of left forearm; Contusion of right shoulder; SLAP shoulder tear; Sprain of right elbow; Sprain of right shoulder; Strain of right elbow and forearm Patient Understands: Yes - Patient/family/caregiver verbalizes understanding of instructions given Comment: Normal [facility] ED Patient Summaryon 021 ED Patient Summary [facility] ? Urgent Care [address] [place] [address] PATIENT DISCHARGE INSTRUCTIONS Patient Information Name: CARMELITA EASTMAN Age: 45 Years Date of : 1975 Reason For Visit: Medical screening exam; [facility] F/U RT ELBOW INJURY Arrival Time: 02/22/2021 15:51:36 Primary Care Physician: Misbah Donahue Attending Physician: Irena Weinberg PA-C Comment: Patient Education With: Address: When: Return to this practice Comments: Mar 31 at 10 a.m. Medication Information: The exam and treatment you received today in the [facility] Emergency Department were for an urgent problem and are not intended as complete care. It is important for you to follow up with a doctor, nurse practitioner, or physician?s customer relations assistant for ongoing care. If your symptoms become worse or you do not improve as expected and you are unable to reach your usual health care provider, you should return to the Emergency Department, we are available 24 hours a day. For those patients who have received Radiology results, the interpretation of your X-ray as given to you by our Emergency Department physician is only a preliminary report. The Radiologist will review your films and if there is a change in the diagnosis you will be notified by phone. Please make sure you have provided a working phone number so we can reach you if necessary. In the event that you had a lab culture while you were a patient in the Emergency Department, you will be notified by phone if there is a need to change your antibiotic. Please make sure you have provided a working phone number so we can reach you if necessary. [facility] Emergency Department has provided you with a complete list of medications post discharge. Please inform your rate reviewer/provider of your visit and for further instruction on these medications. Any specific questions regarding your chronic medications and dosages should be discussed with your primary care physician(s) and/or pharmacist. Medications That Were Updated - Follow Below Instructions [id number], [address], [place] [id number], [phone] Updated: acetaminophen-oxycodone (Percocet 5 mg-325 mg oral tablet) 1 tab(s) Oral 2 times a day as needed as needed for pain for 30 Days. Fill 03/25/21 Claim -[id number] DOI 11/12/20. Refills: 0. Updated: acetaminophen-oxycodone (Percocet 5/325 oral tablet) 1 tab(s) Oral 2 times a day as needed for pain for 30 Days. Claim -[id number] DOI 11/05/20. Refills: 0. Other Medications Updated: acetaminophen-oxycodone (acetaminophen-oxycodone 325 mg-5 mg oral tablet) 1 tab(s) Oral every day. to last 30 days ok to fill. Refills: 0. Medications to Continue That Have Not Changed Other Medications ibuprofen (ibuprofen 200 mg oral capsule) 2 cap(s) Oral Every 4 hours as needed for pain. Visit Information Visit Diagnosis: Diagnoses This Visit Abrasion of left forearm (S50.812A) Abrasion of left forearm, sequela (S50.812S) Contusion of left forearm (S50.12XA) Contusion of right shoulder (S40.011A) Medical screening exam ([id number]) SLAP shoulder tear (S43.439A) Sprain of right elbow (S53.401A) Sprain of right shoulder (S43.401A) Strain of right elbow and forearm (S56.911A) If you received any narcotics, sedation, or any other medication that causes drowsiness for the next 24 hours, unless otherwise directed: ? Do not drive a car. ? Do not operate machinery such as power tools, lawn mowers, drills, sewing machines, or stoves ? Avoid alcoholic beverages and drugs for allergies, nerves, or sleep ? Do not make important personal or business decisions or sign any legal documents Reason for Visit: medical screening Allergies: Substance Reaction Symptoms Type Comments No known allergies Drug Vital Signs: Vitals and Measurements this Visit (last charted value for your 02/22/2021 visit) Vital Signs This Visit Temperature Oral: 36.7 DegC Peripheral Pulse Rate: 85 bpm Respiratory Rate: 18 br/min Systolic Blood Pressure: 130 mmHg Diastolic Blood Pressure: 90 mmHg SpO2: 95 % Oxygen Therapy: Room air Problems List: Problem Onset Comments Kidney stones Pain management Sees Dr. Owusu for back and joint pain Major Tests and Procedures: The following procedures and tests were performed during your ED visit. Laboratory Radiology Cardiology Viruses or Bacteria What?s got you sick? Antibiotics only treat bacterial infections. Viral illnesses cannot be treated with antibiotics. When an antibiotic is not prescribed, ask your healthcare professional for tips on how to relieve symptoms and feel better. Usual Cause Illness Viruses Bacteria Antibiotic Needed Cold/Runny Nose NO Bronchitis/Chest Cold (in otherwise healthy children and adults) NO Whooping Cough Yes Flu NO Strep Throat Yes Sore Throat (except strep) NO Fluid in th (more content not included)... Normal [facility] Urgent Care Note- Provideron 02-22-2021 Urgent Care Note- Provider Patient: CARMELITA EASTMAN Age: 45 years Sex: MALE : 1975 Associated Diagnoses: Strain of right elbow and forearm; Sprain of right elbow; Sprain of right shoulder; SLAP shoulder tear; Contusion of right shoulder; Contusion of left forearm; Abrasion of left forearm Author: Irena Weinberg PA-C Basic Information Additional information: Chief Complaint from Nursing Triage Note : Chief Complaint 02/22/2021 16:00 EDT Chief Complaint medical screening . 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 On 11/12/[address] when the cloud systems administrator ordered an immediate arrest. The individual resisted arrest and ran. There was a scuffle inside the courtroom, followed by a karol into a hallway where there was another scuffle and then a karol through another set of heavy, wooden doors. When this was all said and done, Mr. Eastman noted blood to his left forearm with some left forearm and wrist pain and swelling, as well as right shoulder, elbow and hand pain. He was seen in our ER where x-rays of his right elbow and left forearm were non acute. He was placed on light duty work and was performing desk work until Dr. Sheriff put him off completely. He cannot even actively reach for and use his weapon without significant difficulty and pain. He did not improve after Prednisone. OT kamilla suggested his elbow and forearm pain was referred from an additional shoulder problem. He was seen by Dr. Sheriff who got the additional condition of right shoulder contusion/sprain onto the claim and a CT arthrogram was performed and showed a SLAP tear. MRI cannot be done because of a spinal stimulator in his back. Symptoms on the left have improved. On the right he continues with difficulty with any behind the back and overhead movement due to pain and stiffness in that arm and shoulder. He continues with right elbow pain, mostly medially that shoots up and down his arm, especially when he tries to full extend and flex the arm. He has been reporting numbness/tingling in his right hand that comes and goes with changes in position, mostly of his fourth and fifth fingers and part of his middle finger. His right hand feels weak since this happened and it will swell. He will wake with 8/10 on the right if he is sleeping on that side and finds it difficult to sleep for more than a few hours at a time due to pain. [place] caused headaches. He seems to be tolerating Percocet, and is using one tablet twice daily as needed for severe pain. With any repetitive use of this arm he notes increased pain and tingling throughout his arm and right hand. No fevers, chills or malaise. No other joint pains or myalgias. No other numbness, tingling or weakness. Ecchymosis better, abrasion is healed, no other skin rashes or lesions. There are no other associated symptoms. Nothing else makes the symptoms better or worse. Symptoms are described as sudden onset, moderate in nature and persisting. There have been no changes in his symptoms since being placed off of work. Health Status Allergies: Allergic Reactions (Selected) No known allergies. Medications: (Selected) Prescriptions Prescribed acetaminophen-oxycodone 325 mg-5 mg oral tablet: 1 tab(s), PO, Daily, to last 30 days ok to fill, 30 tab(s), 0 Refill(s) Documented Medications Documented ibuprofen 200 mg oral capsule: 400 mg = 2 cap(s), PO, q4hr, PRN: for pain, 120 cap(s), 0 Refill(s). Past Medical/ Family/ Social History Medical history: No active or resolved past medical history items have been selected or recorded.. Surgical history: Injection of steroid ([id number]) on 02/01/2021 at 45 Years. Comments: 02/22/2021 16:17 Brittany Alonso LPN shld pain, Dr Sharita Arthrogram of shoulder girdle and upper limb joint ([id number]) on 01/18/2021 at 45 Years. Comments: 01/19/2021 15:56 EDT Brittany Vaca LPN right Facet joint nerve block ([id number]) on 10/27/2020 at 45 Years. Comments: 10/27/2020 9:10 Araseli Lord BILATERAL LUMBAR MEDIAL BRANCH BLOCK T12,L1,L2,L3 Epidural steroid injection ([id number]) on 09/15/2020 at 45 Years. Comments: 09/15/2020 10:13 Araseli Lord CAUDAL EPIDURAL STEROID INJECTION Stimulator, device ([id number]) on 04/30/2014 at 38 Years. Comments: 09/22/2020 9:08 Swapna Goodwin stimulator low back placed 2015 Fusion of L4,L5,S1 fused ([id number]) on 04/30/2007 at 31 Years. Cage ([id number]). Comments: 09/22/2020 9:08 Swapna Goodwin bilateral fused cage. Family history: No family history items have been selected or recorded.. Social history: Social & Psychosocial Habits Alcohol 02/22/2021 Alco (more content not included)... Normal [facility] Recordon 021 Urgent Care Record [facility] ? Urgent Care [address] [place], [place] [id number] PATIENT DISCHARGE INSTRUCTIONS Patient Information Name: CARMELITA EASTMAN Age: 45 Years Date of : 1975 Reason For Visit: Medical screening exam; [facility] F/U RT ELBOW INJURY Arrival Time: 02/22/2021 15:51:36 Primary Care Physician: Misbah Donahue Attending Physician: Irena Weinberg PA-C Comment: Visit Diagnosis: Diagnoses This Visit Abrasion of left forearm (S50.812A) Abrasion of left forearm, sequela (S50.812S) Contusion of left forearm (S50.12XA) Contusion of right shoulder (S40.011A) Medical screening exam ([id number]) SLAP shoulder tear (S43.439A) Sprain of right elbow (S53.401A) Sprain of right shoulder (S43.401A) Strain of right elbow and forearm (S56.911A) If you received any narcotics, sedation, or any other medication that causes drowsiness for the next 24 hours, unless otherwise directed: ? Do not drive a car. ? Do not operate machinery such as power tools, lawn mowers, drills, sewing machines, or stoves ? Avoid alcoholic beverages and drugs for allergies, nerves, or sleep ? Do not make important personal or business decisions or sign any legal documents With: Address: When: Return to this practice Comments: Mar 31 at 10 a.m. Medication Information: The exam and treatment you received today in the [facility] were for an urgent problem and are not intended as complete care. It is important for you to follow up with a doctor, nurse practitioner, or physician?s customer relations assistant for ongoing care. If your symptoms become worse or you do not improve as expected and you are unable to reach your usual health care provider, you should return to the Emergency Department, we are available 24 hours a day. For those patients who have received Radiology results, the interpretation of your X-ray as given to you by our Urgent Care physician is only a preliminary report. The Radiologist will review your films and if there is a change in the diagnosis you will be notified by phone. Please make sure you have provided a working phone number so we can reach you if necessary. In the event that you had a lab culture while you were a patient in the Urgent Care, you will be notified by phone if there is a need to change your antibiotic. Please make sure you have provided a working phone number so we can reach you if necessary. [facility] has provided you with a complete list of medications post discharge. Please inform your rate reviewer/provider of your visit and for further instruction on these medications. Any specific questions regarding your chronic medications and dosages should be discussed with your primary care physician(s) and/or pharmacist. Medications That Were Updated - Follow Below Instructions [facility], [address] [place], [place] [id number], [phone] Updated: acetaminophen-oxycodone (Percocet 5 mg-325 mg oral tablet) 1 tab(s) Oral 2 times a day as needed as needed for pain for 30 Days. Fill 03/25/21 Claim [id number] DOI 11/12/20. Refills: 0. Updated: acetaminophen-oxycodone (Percocet 5/325 oral tablet) 1 tab(s) Oral 2 times a day as needed for pain for 30 Days. Claim [id number] DOI 11/05/20. Refills: 0. Other Medications Updated: acetaminophen-oxycodone (acetaminophen-oxycodone 325 mg-5 mg oral tablet) 1 tab(s) Oral every day. to last 30 days ok to fill. Refills: 0. Medications to Continue That Have Not Changed Other Medications ibuprofen (ibuprofen 200 mg oral capsule) 2 cap(s) Oral Every 4 hours as needed for pain. Visit Information Allergies: Substance Reaction Symptoms Type Comments No known allergies Drug Vital Signs: Vitals and Measurements this Visit (last charted value for your 02/22/2021 visit) Vital Signs This Visit Temperature Oral: 36.7 DegC Peripheral Pulse Rate: 85 bpm Respiratory Rate: 18 br/min Systolic Blood Pressure: 130 mmHg Diastolic Blood Pressure: 90 mmHg SpO2: 95 % Oxygen Therapy: Room air Problems List: Problem Onset Comments Kidney stones Pain management Sees Dr. Owusu for back and joint pain Patient Education Viruses or Bacteria What?s got you sick? Antibiotics only treat bacterial infections. Viral illnesses cannot be treated with antibiotics. When an antibiotic is not prescribed, ask your healthcare professional for tips on how to relieve symptoms and feel better. Usual Cause Illness Viruses Bacteria Antibiotic Needed Cold/Runny Nose NO Bronchitis/Chest Cold (in otherwise healthy children and adults) NO Whooping Cough Yes Flu NO Strep Throat Yes Sore Throat (except strep) NO Fluid in the middle ear (otitis media with effusion) NO Urinary Tract Infection Yes Antibiotics Aren?t Always the Answer www.cdc.gov/getsmart GET SMART Know When Antibiotics Work U.S. Department of Health and Human Se (more content not included)... [facility] Coding Summaryon 01-25-2021 Coding Summary HTMLBase 64 IikwkalpMVh3yLp+PGhlYWQ+P R5VPMLwX87cpCKfmT5EQ8cLPI 3IENMKAHYABF5VDH1gvBN5SXf sF0TrgoQg WtlhfZExKF60RYk0SAB7fQxpI KixoN0sqTPvM1z9PgLrYV51wP 09IHtpKNAbUuR8TtZjbxdvtFU y F6tgAaCruGWbEtr+PHRhYmxlI HdpZHRoPScxMDAlJyBzdHlsZT 1uJn8tSXPbLUYvwNjmeTVrNrO j e1alHHBgNJdcGK7ktRboZ9Owz LN5QVHmw1l8Kd23fMB+PHRkIH E4fVryYJpfc072PaMfd3dtFQI 3 xHHrMVmnUSV5Z03yg4U1DPZdQ YRzBRA8yHU6eM9gkDyxfirxV3 UrvGGeEzB2EYK8mZItwC6npXu n qsqdcQ5kRyc+R62JFH1LBVMJB K7PYub0Y0PeEfphnVC+PC90YW RiQU78bYYgiZQnf3zamBp9DgN w WZZiZYK4aVzxKIsos7OlHNQvR 70raSXlq2K8JRHvjTffwEJaTw SuaTP0rV0yLDnrlfjgk2ydjbl n Ynszp1muyc02zY94P26kCOfzD HXsYOZ9VHWpFQXtbGbfdp2waR 9wIi8+YYfdm9xca3hofYw3EdO w JIMxejAyfZftKFG1k7IkEc65E 8DbyXprj3RyCdo7vn30eTTmh0 L9iYA8MReiIGPqxO6xBDeeUcM 6 CQVvGvLgvX18kDFjQYwaEe0fz AwhfAvmES5gQLHsgyffNANbaU 7wXMOceGIhyLnrEU3lYMDqvzr m s058QeMwCZW5LGNkqUTgG3Nzb C2yCtMlJKInVHKlX1ZpkGAfVU esU888PGcuVmV0MANtysLtX9J s KMYmeMzpJjM4q5P0Gi8Bs8Viy nvkLSR1XXnoHSZ1VpG2TiRoEk A9W3QsHjz4PJXxmMqzAR4hB2Q h BLUgmyyjrgomjBA4YLBaYCRyr M40dOIiGByoPs7gy6F9e278OE CxTVZfzY90Af6vbYypJXLkiEA U xO3tdzuku6xdmuyuMwThIGYtY Ro1PUi3CJTzgXoaAaTtMCF6Tg S0QNI2iJIskO4pkOnntewxfK4 w Oyc+I51roS2wNGQ3OEN2cfxrI GIcjhWgBK96NY85K4PmVirtcQ FibGU+YIYawxCzlYgrER3gSaP j j0qie9TzKKuaF8IeDUIiDVleX hw3FUWrYYX3kLK7rI9wXBBaSW jpj5D7aXK4J9IcgdCagm6at9m s KHHjXHbiQ46dvVLgo7L7LDWyn DW8OHZglUlrRuTvcK90Mph+PG TwzAcsm1YrEufri7nbh1izhVv 9 IwWgNVOhxtHckDufZZX5q7LqI g72I89sBWinCLSjBFZlTFGlFT SheVhgyi7qwX8nIv7+PGNvbCB 3 yEW3wW6mEFEhFqQ3KSbcX808X sJmaCGoBhfdy9aiu6ppaHj9Fx CqVDKqmvJgyFdaBOI2a3WwBf3 8 M91fPXnlNQMoBRToZBKrRTKfl Inmew7rqS6hVo6+PE1ji8kbqt 69tJ78fDF+OKZzJLP1gXquPOo w MLUumB7yWMcyCtC5KVAeUsRio F61eCGdWMrpSm6ucCnlqPhcIS 4tIDUaorrmt250UuZbk5sxANS w yEVfESvaZFF8O21pc2B6SKSxQ SEaBNU1pGG2eL7aaNbydgzqbF CxhIpjrfUjsHanAKfaOTqfY61 6 IHRvcDsnPlBhdGllbnQgTmFtZ Gh4O0VyGxb6XKLvuXtiDE4laK FdSTnkKy9jlPfarAxiWS3qYNK p oncri106UbYws4ydXJMguIBxA AhhIYO8N97ob6G3HZNwQADvNR Q3pLN9sB7hoZmwldcbtOEicFg g gzWucAppWYbtEVebX609EEBst WofIjAxukPwRBOdvHK1NC10SV 15fRSfr2L7nDB2T8KqBMCrzre t apshwJV1HLDyOHTgnD66Zc3jh LngYd1sOEZpMUA2TSPtrCVzX5 SceN3vEtFyDHAqBIGpO0MxnCJ t KOcqJ840MDrvChA3NHZsjcEeP 2NdDNVbbGqbVuW5v7Z9Jv7ZG7 V0BG81VH36zNHlw7Q5vLZ2C3S h VQGctcyujxjimUP3RPLnXOUeb V00Fb6tpBtpFl2vMCRpJBC2DF QpaQIuE9JszN1nAlAvVRKnDWB w E1QcjQEiMQbyZ750KRodNfG6F NBhpvUpH9MbVLEefOhoZnU7n9 K1Ys3ODLq0GP73KV15iLXuh2I 5 tBX4W7XtAHXoxqclyazzwKB2R FDhNWQuqN96Cc0thKfqUy7lPN EwQTT9HIYzxZNhE5HijL6mRmZ j TBEwUJOnZ2TckPVhTPzvC839Q PfjReU6EXRvvcPpE9OpMLNdlN wzEpT0i7S4Eb0JNXUsXP76SGL 5 kFU6CZ93CI41T0NxEakbcEHtg +PHRhYmxlIHdpZHRoPScxMD JpQnVqeHhdJE3bJo7hVENnIUW v sGxgaRZgGlGkh1mnNAYmPXakX Y0ktMaqM6HbdGH7MXGii9m2Sj 80N10oG6ZkaTF+KNYmqDG7pEP 0 wW7jLbHsYmH9GColQ987NxKwt XHdRcohi6fxn9lyoXb0VsI4IJ UbxsDvdByzRJX2z4QzSf98B06 s IHdpZHRoPSIxNSUiIHZhbGlnb q0pkU9nMw4+AIKoxMD4rTS0xW 4pPgDyLgE2JGrpY243TnTwsUQ v Dionv2pdw0adfFg8HaZbRCJki hDsoJlpBGZ8r1KiFs73L7EunI zrp1GfYfu1nm16dNQiw6O0wQH 9 D1DkYQXkqzucyHBvrHhwMT2yZ TIagbibIXByhW8cLKDqB6a3Pl HeNsC7VBekA6ImmcE6LXNyuJT g CDbxHMD6U85jt7C5WDSaAFEzJ DK5zFO9uQ6qdRwejxeaaKEzkB mlihFnqHwsQXsyTDbzB055JSC v tXllSSWipP2cTOQnrXVttZboP S3bDDKejofqZjaRUFMBJYISEK VVCTiuPTeSCU37Z9PqPwu3LMF z yGfqDV1llELuHCnzPf6jiCjhx HgaRQ7aFUYzsdlbJMObtB2uBL NubCBkyXupOG4eIOJzzmvzh46 0 IuSvRKH0PWTbfQTmG3JhgF0iJ gYyGCOjWHSiT3SeyYXaHRrwE2 06DTryIpI2SWZaqoSnA5OeXNY s aGloWyF3o0A8Xc0jEL4gZa5aJ Ts3AU96YG79iXVys7A8mAL2N2 TtYVRgkujkwmjpiXS1GQCzRRZ w tT02fHWwCIicLg4vh2D5l453A PItLJAgeQ07Fx1wrPwtHKBiyY STmK6vrrezg9zwmnfaHaZwVCK w LLw6BBv3TUNdkYmxOwWzGML5B yV4BHD0oIPkhT6reRlkmfctvQ 9wOyc+FDMfIWFajvD2W5SkDvd 0 EHQpuXhoOD2ncHAaSVwaDs7kv AjcoPumMB2zZJHavtxdPSBjsH 4rSIDljDCloZxuGD3sNPSoung m k940AnKmLAZ8DRKarGRsT8Ukq L5fFzJbLVUbUVVgS2ZqtHHnOK hbO114MPmvLcF0MSZwhiOpL7I s BCXcpOasBnO4k8V3Vs9GYMiDJ N61EJ48lJPnv4M6kEY5C6FgXI CmhlqdafpqbXL7QUZsYRTcsW1 7 iOVmMOyrBt3cx1B1a186HXEhN LQlwW23Dj9zcMwfOJPfjRQFxE 3yqkeme4ouayvyZdGfNZPeDSn 0 IJz0EAWijDyiEpBqVLU2VaT6X AS6uKBsqX8jkWomigosdG5wXc c+K4B0G7PiFypuxYT+WF49RJS s FE84gOYyiPJhw2jtmQw1OvVrK MLuEPL2hKesSLiip1WyEDAnA6 5bhMDhy3H1MNZofVdieKOsPhT l qJR4zE0mFMbahlmlq4babmdiV cqof0jyow31sV85U82rYPrfXA PgNKJxZJDpQLYdtBbdjo6eqJ3 w Ii8+CYXbrHN2iSE7uT3dTsYxL aP6JXxaH610QyDuwGIvQhqxv4 aec9fokTv6QgGfPDNhvgCizCb u RAX4g8OyLa84T31iKZggXVClG YBjDIAgTPApnFwpsy6ybA5iJd 8+AU6fo9vlwq09jJ78qHK+PHR k ATB7aDmnBTyzQFKevT5tQJqlR cR4KLYeDxUlqK90tUWrPDcnNl 6qtTwhpTflKU5kYZAzqyoxe87 0 XcGmy1tkDNPzmPZcPIotWCK2O 58ei8X2DUXaFXPoMRD6yPP5wG 1hbGlnbjogbGVmdDsgdmVydGl j YZijEGruO001DVDejUslPdOyl XOpT2zvteULZR3zUsnryTS+PH CdDBV5sJrsEHjgHJOogW8hXWE p M3e1QgYyQvL6OCklE0DwalD8M KBooPZgTPTzbXVEiL3xmkfow6 hzfjidChIzTAFsBTh9ABn5WVC s aFniWcKzLVU8AjN8MQK3nQAhp O6gcKqtoijyrY3mLay+RklOOj wvdGQ+SDUzDTO7qXroEGdfEIF k sI1bITPqX2y4ElFiJrA7QOytW 1GihpU1RRBggYKbBPLlwOQBeI 7kuenzf7qvmobeJyZfUAAwHFn 0 HFb0CQVmvNueDhWpLBX5TzP7Q TZ4aLJhkY2exRarxcpieN1oIo c+TVJOOjwvdGQ+IUCbXOQ1hSa l YRyjLTUbwC3dYTIwN4y0QpTwM uI1HXecC1WagdY1EKCynDLkJO HlnRHYpW7uigbxk9fuorwgMpO w FEUiPZi3DQx4MDHwoTiuJkCiK TN8TwR7SAN7yIAopT7haLwlbk kkhV9tOfs+JAK8OXJ4CZ91OA7 8 L5EqWhoaiQIbrZH+PHRhYmxlI HdpZHRoPScxMDAlJyBzdHlsZT 1rHr1gWASuKDNciNffhQXuPyW j b2x (more content not included)... [facility] Billing Authorizationson Billing Authorizations [id number]#1.00OTGTI [facility] Outside Recordson 01-21-2021 Outside Records [id number]#1.00OTGTI [facility] Outside Records [id number]#1.00OTGTI [facility] ED Clinical Summaryon 2020 ED Clinical Summary [facility] ? Urgent Care [address] [place] [id number] Clinical Summary PERSON INFORMATION Name: CARMELITA EASTMAN Age: 45 Years Sex: MALE : 1975 MRN: Acct#: Visit Reason: Medical screening exam; RIGHT ELBOW INJURY Arrival: 01/19/2021 14:47:41 Discharge: 01/19/2021 15:45:00 LOS: 000 00:58 Check In: 01/19/2021 14:47:41 Checkout: 01/19/2021 15:45:00 Address: [address] [place], [place] [id number] PCP: Misbah Donahue PROVIDER INFORMATION Provider Role Assigned Unassigned Irena Weinberg PA-C ED PA 01/19/2021 14:49:16 Ana Maria Craig REDUCING SALON ATTENDANT Nurse 01/19/2021 14:52:02 01/19/2021 14:54:25 Brittany Arboleda CONSTRUCTION TECHNOLOGY INSTRUCTOR ED Nurse 01/19/2021 14:59:13 VITALS INFORMATION Vital Sign Triage Latest Temperature Tympanic Temperature Temporal Artery Pulse Rate O2 Sat 95 % 95 % Respiratory Rate Blood Pressure /89 mmHg /89 mmHg MEDICAL INFORMATION Medications Given: Allergy Information: No known allergies PHYSICIAN DOCUMENTATION DISCHARGE INFORMATION: Discharge Disposition: Home Discharge Location: Home PATIENT EDUCATION INFORMATION Instructions: Follow-Up: With: Address: When: Return to this practice Comments: Feb 22 at 4 p.m. DIAGNOSIS: Abrasion of left forearm; Contusion of left forearm; Contusion of right shoulder; SLAP (superior labrum from anterior to posterior) tear; Sprain of right elbow; Sprain of right shoulder; Strain of right elbow and forearm Patient Understands: Yes - Patient/family/caregiver verbalizes understanding of instructions given Comment: Normal [facility] ED Patient Summaryon 021 ED Patient Summary [facility] ? Urgent Care [address] [place] [address] PATIENT DISCHARGE INSTRUCTIONS Patient Information Name: CARMELITA EASTMAN Age: 45 Years Date of : 1975 Reason For Visit: Medical screening exam; RIGHT ELBOW INJURY Arrival Time: 01/19/2021 14:47:41 Primary Care Physician: Misbah Donahue Attending Physician: Irena Weinberg PA-C Comment: Patient Education With: Address: When: Return to this practice Comments: Feb 22 at 4 p.m. Medication Information: The exam and treatment you received today in the [facility] Emergency Department were for an urgent problem and are not intended as complete care. It is important for you to follow up with a doctor, nurse practitioner, or physician?s customer relations assistant for ongoing care. If your symptoms become worse or you do not improve as expected and you are unable to reach your usual health care provider, you should return to the Emergency Department, we are available 24 hours a day. For those patients who have received Radiology results, the interpretation of your X-ray as given to you by our Emergency Department physician is only a preliminary report. The Radiologist will review your films and if there is a change in the diagnosis you will be notified by phone. Please make sure you have provided a working phone number so we can reach you if necessary. In the event that you had a lab culture while you were a patient in the Emergency Department, you will be notified by phone if there is a need to change your antibiotic. Please make sure you have provided a working phone number so we can reach you if necessary. [facility] Emergency Department has provided you with a complete list of medications post discharge. Please inform your rate reviewer/provider of your visit and for further instruction on these medications. Any specific questions regarding your chronic medications and dosages should be discussed with your primary care physician(s) and/or pharmacist. Medications That Were Updated - Follow Below Instructions [facility], [address] [place], [place] [id number], [phone] Updated: acetaminophen-oxycodone (Percocet 5 mg-325 mg oral tablet) FILL 01/21/21 2 tab(s) PO daily at bedtime Claim [id number] DOI 11/05/20; as needed as needed for pain. Refills: 0. Other Medications Updated: acetaminophen-oxycodone (acetaminophen-oxycodone 325 mg-5 mg oral tablet) 1 tab(s) Oral every day. to last 30 days ok to fill. Refills: 0. Medications to Continue That Have Not Changed Other Medications ibuprofen (ibuprofen 200 mg oral capsule) 2 cap(s) Oral Every 4 hours as needed for pain. Visit Information Visit Diagnosis: Diagnoses This Visit Abrasion of left forearm (S50.812A) Contusion of left forearm (S50.12XA) Contusion of right shoulder (S40.011A) Medical screening exam ([id number]) SLAP (superior labrum from anterior to posterior) tear (S43.439A) Sprain of right elbow (S53.401A) Sprain of right shoulder (S43.401A) Strain of right elbow and forearm (S56.911A) If you received any narcotics, sedation, or any other medication that causes drowsiness for the next 24 hours, unless otherwise directed: ? Do not drive a car. ? Do not operate machinery such as power tools, lawn mowers, drills, sewing machines, or stoves ? Avoid alcoholic beverages and drugs for allergies, nerves, or sleep ? Do not make important personal or business decisions or sign any legal documents Reason for Visit: medical screening Allergies: Substance Reaction Symptoms Type Comments No known allergies Drug Vital Signs: Vitals and Measurements this Visit (last charted value for your 01/19/2021 visit) Vital Signs This Visit Temperature Temporal: 36.8 DegC Peripheral Pulse Rate: 91 bpm Respiratory Rate: 18 br/min Systolic Blood Pressure: 138 mmHg Diastolic Blood Pressure: 89 mmHg SpO2: 95 % Oxygen Therapy: Room air Problems List: Problem Onset Comments Kidney stones Pain management Sees Dr. Owusu for back and joint pain Major Tests and Procedures: The following procedures and tests were performed during your ED visit. Laboratory Radiology Cardiology Viruses or Bacteria What?s got you sick? Antibiotics only treat bacterial infections. Viral illnesses cannot be treated with antibiotics. When an antibiotic is not prescribed, ask your healthcare professional for tips on how to relieve symptoms and feel better. Usual Cause Illness Viruses Bacteria Antibiotic Needed Cold/Runny Nose NO Bronchitis/Chest Cold (in otherwise healthy children and adults) NO Whooping Cough Yes Flu NO Strep Throat Yes Sore Throat (except strep) NO Fluid in the middle ear (otitis media with effusion) NO Urinary Tract Infection Yes Antibiotics Aren?t Always the Answer www.cdc.gov/getsmart GET SMART Know When Antibiotics Work [place]. Dep[employer] (more content not included)... Normal [facility] Urgent Care Note- Provideron 01-19-2021 Urgent Care Note- Provider Patient: CARMELITA EASTMAN Age: 45 years Sex: MALE : 1975 Associated Diagnoses: Strain of right elbow and forearm; Sprain of right elbow; Sprain of right shoulder; SLAP (superior labrum from anterior to posterior) tear; Contusion of right shoulder; Contusion of left forearm; Abrasion of left forearm Author: Irena Weinberg PA-C History of Present Illness OCCUPATIONAL HEALTH FOLLOW-UP Date of injury: 11/12/20 Claim #: [id number] Employer: [employer] Mechanism of Injury: Altercation between self and someone resisting arrest Diagnosis: Contusion left forearm, Sprain right elbow, Strain right arm 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 On 11/12/[address] when the cloud systems administrator ordered an immediate arrest. The individual resisted arrest and ran. There was a scuffle inside the courtroom, followed by a karol into a hallway where there was another scuffle and then a karol through another set of heavy, wooden doors. When this was all said and done, Mr. Eastman noted blood to his left forearm with some left forearm and wrist pain and swelling, as well as right shoulder, elbow and hand pain. He was seen in our ER where x-rays of his right elbow and left forearm were non acute. He was placed on light duty work. 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 He cannot even actively reach for and use his weapon without significant difficulty and pain. He did not improve after Prednisone. OT kamilla suggested his elbow and forearm pain was referred from an additional shoulder problem. He was seen by Dr. Sheriff. Dr. Sheriff requested additional condition of right shoulder contusion/sprain which wasn't allowed until yesterday, 01/18/21. MRI cannot be done because of a spinal stimulator in his back. Symptoms on the left have improved. On the right he continues with difficulty with any behind the back and overhead movement due to pain and stiffness in that arm and shoulder. He continues with right elbow pain, mostly medially that shoots up and down his arm, especially when he tries to full extend and flex the arm. He has been reporting numbness/tingling in his right hand that comes and goes with changes in position, mostly of his fourth and fifth fingers and part of his middle finger. His right hand feels weak since this happened and it will swell. He will wake with 8/10 on the right if he is sleeping on that side and finds it difficult to sleep for more than a few hours at a time due to pain. [place] caused headaches. He seems to be tolerating Percocet, and is using one when he gets home from work and another at bedtime. With any repetitive use of this arm he notes increased pain and tingling throughout his arm and right hand. No fevers, chills or malaise. No other joint pains or myalgias. No other numbness, tingling or weakness. Ecchymosis better, abrasion is healed, no other skin rashes or lesions. There are no other associated symptoms. Nothing else makes the symptoms better or worse. Symptoms are described as sudden onset, moderate in nature and persisting. He had a CT arthrogram of his shoulder yesterday which showed a SLAP tear, without evidence of full thickness rotator cuff tear. Health Status Allergies: Allergic Reactions (Selected) No known allergies. Medications: (Selected) Prescriptions Prescribed Percocet 5 mg-325 mg oral tablet: See Instructions, 2 tab(s) PO daily at bedtime Claim [id number] DOI 11/05/20, PRN: as needed for pain, 60 tab(s), 0 Refill(s) acetaminophen-oxycodone 325 mg-5 mg oral tablet: 1 tab(s), PO, Daily, to last 30 days ok to fill, 30 tab(s), 0 Refill(s) Documented Medications Documented ibuprofen 200 mg oral capsule: 400 mg = 2 cap(s), PO, q4hr, PRN: for pain, 120 cap(s), 0 Refill(s). Past Medical/ Family/ Social History Medical history: No active or resolved past medical history items have been selected or recorded.. Surgical history: Facet joint nerve block ([id number]) on 10/27/2020 at 45 Years. Comments: 10/27/2020 9:10 Araseli Lord BILATERAL LUMBAR MEDIAL BRANCH BLOCK T12,L1,L2,L3 Epidural steroid injection ([id number]) on 09/15/2020 at 45 Years. Comments: 09/15/2020 10:13 Araseli Lord CAUDAL EPIDURAL STEROID INJECTION Stimulator, device ([id number]) on 04/30/2014 at 38 Years. Comments: 09/22/2020 9:08 Swapna Goodwin stimulator low back placed 2015 Fusion of L4,L5,S1 fused ([id number]) on 04/30/2007 at 31 Years. Cage ([id number]). Comments: 09/22/2020 9:08 BARTT - Swapna Arana bilateral fused cage. Family history: No family history items have been selected or recorded.. Social history: Social & Psychosocial Habits Alcohol 03/05/2020 Alcohol Use: Current Frequency: 1-2 times per month Employment/School 03/05/2020 Status: Employed Substance Abuse 03/05/2020 Substance use: Current Frequency: Daily Comment: PRESCRIBED FOR DPN - 03/05/2020 11:23 - Regla SIMON, Sam Desouza (more content not included)... Normal [facility] Recordon 021 Urgent Care Record [facility] ? Urgent Care [address] [place] [address] PATIENT DISCHARGE INSTRUCTIONS Patient Information Name: CARMELITA EASTMAN Age: 45 Years Date of : 1975 Reason For Visit: RIGHT ELBOW INJURY Arrival Time: 01/19/2021 14:47:41 Primary Care Physician: Misbah Donahue Attending Physician: Irena Weinberg PA-C Comment: Visit Diagnosis: Diagnoses This Visit Abrasion of left forearm (S50.812A) Contusion of left forearm (S50.12XA) Contusion of right shoulder (S40.011A) SLAP (superior labrum from anterior to posterior) tear (S43.439A) Sprain of right elbow (S53.401A) Sprain of right shoulder (S43.401A) Strain of right elbow and forearm (S56.911A) If you received any narcotics, sedation, or any other medication that causes drowsiness for the next 24 hours, unless otherwise directed: ? Do not drive a car. ? Do not operate machinery such as power tools, lawn mowers, drills, sewing machines, or stoves ? Avoid alcoholic beverages and drugs for allergies, nerves, or sleep ? Do not make important personal or business decisions or sign any legal documents With: Address: When: Return to this practice Comments: Feb 22 at 4 p.m. Medication Information: The exam and treatment you received today in the [facility] were for an urgent problem and are not intended as complete care. It is important for you to follow up with a doctor, nurse practitioner, or physician?s customer relations assistant for ongoing care. If your symptoms become worse or you do not improve as expected and you are unable to reach your usual health care provider, you should return to the Emergency Department, we are available 24 hours a day. For those patients who have received Radiology results, the interpretation of your X-ray as given to you by our Urgent Care physician is only a preliminary report. The Radiologist will review your films and if there is a change in the diagnosis you will be notified by phone. Please make sure you have provided a working phone number so we can reach you if necessary. In the event that you had a lab culture while you were a patient in the Urgent Care, you will be notified by phone if there is a need to change your antibiotic. Please make sure you have provided a working phone number so we can reach you if necessary. [facility] has provided you with a complete list of medications post discharge. Please inform your rate reviewer/provider of your visit and for further instruction on these medications. Any specific questions regarding your chronic medications and dosages should be discussed with your primary care physician(s) and/or pharmacist. Medications That Were Updated - Follow Below Instructions [id number], [address], [place] [id number], [phone] Updated: acetaminophen-oxycodone (Percocet 5 mg-325 mg oral tablet) FILL 01/21/21 2 tab(s) PO daily at bedtime Claim [id number] DOI 11/05/20; as needed as needed for pain. Refills: 0. Other Medications Updated: acetaminophen-oxycodone (acetaminophen-oxycodone 325 mg-5 mg oral tablet) 1 tab(s) Oral every day. to last 30 days ok to fill. Refills: 0. Medications to Continue That Have Not Changed Other Medications ibuprofen (ibuprofen 200 mg oral capsule) 2 cap(s) Oral Every 4 hours as needed for pain. Visit Information Allergies: Substance Reaction Symptoms Type Comments No known allergies Drug Vital Signs: Vitals and Measurements this Visit (last charted value for your 01/19/2021 visit) No vitals and measurements documented Problems List: Problem Onset Comments Kidney stones Pain management Sees Dr. Owusu for back and joint pain Patient Education Viruses or Bacteria What?s got you sick? Antibiotics only treat bacterial infections. Viral illnesses cannot be treated with antibiotics. When an antibiotic is not prescribed, ask your healthcare professional for tips on how to relieve symptoms and feel better. Usual Cause Illness Viruses Bacteria Antibiotic Needed Cold/Runny Nose NO Bronchitis/Chest Cold (in otherwise healthy children and adults) NO Whooping Cough Yes Flu NO Strep Throat Yes Sore Throat (except strep) NO Fluid in the middle ear (otitis media with effusion) NO Urinary Tract Infection Yes Antibiotics Aren?t Always the Answer www.cdc.gov/getsmart GET SMART Know When Antibiotics Work U.S. Department of Health and Human Services Centers for Disease Control and Prevention December 2013 Normal [facility] CMP Standardon 01-14-2021 eGFR Non AA >60 Invalid Interpretation Code [facility] Comment on above: Performed By: #### 9 [id number], [id number], 1212853, 4009293, 6200702, 9163278, [id number], 3583262 ####[facility] (DEFAULT)[address] [place] [address] 75946 eGFR AA >60 Invalid Interpretation Code [facility] Comment on above: Result Comment: Orchid Superintendent yvonne Kidney disease could be indicated at eGFRs of less than 60 ml/min/1.73m2. Kidney Failure is indicated at less than 15 ml/min/1.73m2 Performed By: #### 9 624306, [id number], 3505517, 4496782, 5256989, 7691011, 1841035773, 1871225 ####[facility] (DEFAULT)[address] [place] [address] 78174 Albumin [Mass/Vol] 4.0 g/dL Normal 3.5-5.0 [facility] Comment on above: Performed By: #### 9 816512, [id number], 1992318, 4800966, 0131935, 9234778, 7924173354, 9324037 ####[facility] (DEFAULT)[address] [place] [address] 58361 Albumin/Globulin [Mass ratio] 1.2 {ratio} Low 1.4-2.6 [facility] Comment on above: Performed By: #### 9 754314, [id number], 9695864, 1187584, 9012231, 6333956, 2317234511, 0266579 ####[facility] (DEFAULT)[address] [place] [address] 06395 Alk Phos 55 IU/L Normal 32-91 [facility] Comment on above: Performed By: #### 9 558999, [id number], 0007231, 5259311, 9770700, 5013290, 7722615782, 2642342 ####[facility] (DEFAULT)[address] [place] [address] 33876 ALT [Catalytic activity/Vol] 21.0 U/L Normal 17.0-63.0 [facility] Comment on above: Performed By: #### 9 778487, [id number], 0490549, 5858564, 1282627, 6132654, 3694787126, 0849011 ####[facility] (DEFAULT)[address] [place] [address] 82480 Anion gap [Moles/Vol] 13.0 mmol/L Normal 5.0-19.0 [facility] Comment on above: Performed By: #### 9 179492, [id number], 2408854, 4592073, 2598777, 2461239, 3926865295, 2728734 ####[facility] (DEFAULT)[address] [place] [address] 56265 AST [Catalytic activity/Vol] 17 U/L Normal 15-41 [facility] Comment on above: Performed By: #### 9 264959, [id number], 0421232, 8692787, 0123909, 9177435, 0359144962, 0263473 ####[facility] (DEFAULT)[address] [place] [address] 85062 Bili Total 0.5 mg/dL Normal 0.3-1.2 [facility] Comment on above: Performed By: #### 9 273450, [id number], 8766834, 6599654, 5392747, 9160634, 7348655047, 3202046 ####[facility] (DEFAULT)[address] [place] [address] 58606 Calcium [Mass/Vol] 9.4 mg/dL Normal 8.9-10.3 [facility] Comment on above: Performed By: #### 9 145369, [id number], 0568347, 2957450, 7878538, 9548325, 9063620403, 0926014 ####[facility] (DEFAULT)[address] [place] [address] 31549 Chloride [Moles/Vol] 106 mmol/L Normal 101-111 [facility] Comment on above: Performed By: #### 9 404732, 9808656982, 4197356, 6731108, 6087727, 9411112, 3465310924, 1371268 ####[facility] (DEFAULT)[address] [place] [address] 86624 CO2 [Moles/Vol] 26 mmol/L Normal 21-32 [facility] Comment on above: Performed By: #### 9 974988, 8412946671, 1400208, 7642244, 2322619, 0072060, 4145023565, 7298722 ####[facility] (DEFAULT)[address] [place] [address] 33976 Creatinine [Mass/Vol] 0.89 mg/dL Low 0.90-1.30 [facility] Comment on above: Performed By: #### 9 390576, [id number], 1092825, 0998087, 8566799, 9980257, 8998757913, 0110791 ####[facility] (DEFAULT)[address] [place] [address] 89449 Globulin (S) [Mass/Vol] 3.4 g/dL Normal 1.5-4.3 [facility] Comment on above: Performed By: #### 9 576441, [id number], 2758890, 5865545, 9768548, 3474686, 7398573604, 5624975 ####[facility] (DEFAULT)[address] [place] [address] 55732 Glucose [Mass/Vol] 96.0 mg/dL Normal 74.0-118.0 [facility] Comment on above: Performed By: #### 9 502210, [id number], 3615485, 3690409, 0688848, 0992968, 3847173145, 8383114 ####[facility] (DEFAULT)[address] [place] [address] Osmolality 282 mOsm/L Invalid Interpretation Code [facility] Comment on above: Performed By: #### 9 323837, 8233442379, 1752056, 0014193, 4021910, 0504928, 7776665491, 9941297 ####[facility] (DEFAULT)[address] [place] [address] 84063 Potassium [Moles/Vol] 4.2 mmol/L Normal 3.6-5.1 [facility] Comment on above: Performed By: #### 9 921892, 8025397530, 6052504, 4666511, 2649050, 6281143, 0508076599, 5283632 ####[facility] (DEFAULT)[address] [place] [address] 08865 Protein [Mass/Vol] 7.4 g/dL Normal 6.5-8.1 [facility] Comment on above: Performed By: #### 9 490492, 0760600683, 2631693, 7649901, 2219881, 1328882, 9133988320, 1169235 ####[facility] (DEFAULT)[address] [place] [address] 61360 Sodium [Moles/Vol] 141.0 mmol/L Normal 136.0-144 . 0 [facility] Comment on above: Performed By: #### 9 962395, 6109644155, 3974301, 1663101, 8485507, 3675047, 2696999434, 2310468 ####[facility] (DEFAULT)[address] [place] [address] 05632 Urea nitrogen [Mass/Vol] 14 mg/dL Normal 8-26 [facility] Comment on above: Performed By: #### 9 367850, 5388811185, 2223326, 3466981, 3062763, 8237910, 8503844006, 0235887 ####[facility] (DEFAULT)[address] [place] [address] 09974 Urea nitrogen/Creatinine [Mass ratio] 16.0 mg/mg Normal 4.6-16.2 [facility] Comment on above: Performed By: #### 9 848544, 0226421286, 2645719, 2030528, 6420793, 1496748, 0619991300, 3548073 ####[facility] (DEFAULT)[address] [place] [address] 81155 GGTon 01-14-2021 Gamma glutamyl transferase [Catalytic activity/Vol] 21.0 U/L Normal 7.0-50.0 [facility] Comment on above: Performed By: #### 9 797906, [id number], 1283947, 0496792, 5596180, 9180745, 0222473213, 1081291 ####[facility] (DEFAULT)[address] [place] [address] 90559 Iron Levelon 01-14-2021 Iron [Mass/Vol] 77.0 ug/dL Normal 45.0-182.0 [facility] Comment on above: Performed By: #### 9 036051, 0596638424, 8972222, 2310119, 4630829, 1819578, 5641545291, 0167295 ####[facility] (DEFAULT)[address] [place] [address] 40047 LDHon 01-14-2021 LDH 106.0 IU/L Normal 98.0-192.0 [facility] Comment on above: Performed By: #### 9 807639, 7690189037, 4365323, 0362668, 7317289, 2469779, 7091575713, 1948660 ####[facility] (DEFAULT)[address] [place] [address] 57693 Lipid Panel Standardon 01-14 Cholesterol [Mass/Vol] 179.0 mg/dL Normal 66.0-200.0 [facility] Comment on above: Result Comment: Nilda rable - Less than 200 mg/dL Borderline high risk - 200-239 mg/dL High risk - 240 mg/dL and over. Performed By: #### 9 431627, 2706794580, 5758500, 0538666, 8962613, 9407504, 2329658425, 2648774 ####[facility] (DEFAULT)[address] [place] [address] 69946 Cholesterol in HDL [Mass/Vol] 39 mg/dL Low 40-71 [facility] Comment on above: Result Comment: High risk - <40 mg/dL. Performed By: #### 9 712836, 3660366274, 4797151, 9994832, 9366126, 2901655, 6468746927, 0629192 ####[facility] (DEFAULT)[address] [place] [address] 82748 Cholesterol in LDL [Mass/Vol] 92 mg/dL Normal 1-100 [facility] Comment on above: Result Comment: Opti mal - Less than 100 mg/dL Borderline high risk - 130-159 mg/dL High risk - 160-189 mg/dL. Performed By: #### 9 696303, 7667588922, 5162539, 9268365, 6804326, 5220490, 1045666046, 8480237 ####[facility] (DEFAULT)[address] [place] [address] 61188 Cholesterol.total/Chol esterol in HDL [Mass ratio] 4.6 {ratio} High 0.0-4.5 [facility] Comment on above: Performed By: #### 9 887582, 8063764815, 1670090, 5091543, 9566189, 2372462, 7287176448, 6637780 ####[facility] (DEFAULT)[address] [place] [address] 00550 Triglyceride [Mass/Vol] 243.0 mg/dL High 0.0-150.0 [facility] Comment on above: Performed By: #### 9 899829, 6682793773, 9188910, 1198464, 8819432, 6109857, 8050221484, 3369617 ####[facility] (DEFAULT)[address] [place] [address] 18209 VLDL. 49 mg/dL High 5-40 [facility] Comment on above: Performed By: #### 9 527418, 9529003218, 1325686, 2452353, 2183379, 1013211, 6315216175, 7127108 ####[facility] (DEFAULT)[address] [place] [address] 79007 PSA Screenon 01-14-2021 PSA Screen 0.47 ng/mL Normal 0.00-4.00 [facility] Comment on above: Result Comment: The concentration of PSA in a given specimen determined with assays from different manufacturers can vary due to differences in assay methods and reagent specificity. Values obtained with different assay methods cannot be used interchangeably. If, in the course of monitoring a patient, the assay method used for determining PSA levels serially is changed, additional sequential testing should be carried out to confirm baseline values. Current Methodology: Zoran Buch[employer] PSA Performed By: #### 9 527646, [id number], 6782814, 2529801, 6953954, 0335789, 0045885258, 5396906 ####[facility] (DEFAULT)[address] [place] [address] 87130 Phoson 01-14-2021 Phosphate [Mass/Vol] 3.4 mg/dL Normal 2.5-4.6 [facility] Comment on above: Performed By: #### 9 489466, 8913150593, 8923832, 5245507, 9799049, 0769103, 7395641153, 3126673 ####[facility] (DEFAULT)[address] [place] [address] 97284 Uric Acidon 01-14-2021 Urate [Mass/Vol] 5.5 mg/dL Normal 4.8-8.7 [facility] Comment on above: Performed By: #### 9 117855, 0502174626, 7349381, 1124647, 0186198, 0209421, 2036128818, 9423495 ####[facility] (DEFAULT)[address] [place] [address] Physical Therapy Noteon 12-29 Physical Therapy Note [id number] FF Normal [facility] Coding Summaryon 12-29-2020 Coding Summary HTMLBase 64 CaqlaersZOf0pFa+PGhlYWQ+P T6WWBSaI89biPSvqI6NS7hTOR 1BDSESOLMZPC1GOW8ylJO0CKy iF9DmhpFo BtybaSTgCQ11MHu8EGL6dRjmO PdptW2heKPoX2n9PtAaZV93rH 30HQxkLFUgZpC4DcPjazxutPY y Y6keGlFjmBIcYxh+PHRhYmxlI HdpZHRoPScxMDAlJyBzdHlsZT 9mAi9gJXEoFLKqoFnobYTuPsH j j7npTVHzWYxdDM8fzHdhQ4Hfq UJ4PAGkc3i7Nq41oKF+PHRkIH D4wTtaDFtuf735JlPex4xrPNQ 3 nGKcKHwxNOZ7N46vw4M7EMKzE AVmSNO6bUN8eZ3xuZifspkaS7 PdbNZtUwK4MBF0yTNhwR2ilDq n zptofO8wWkg+T08ELY0IPSEBB M6DHtf0L9KiCtpgeSR+PC90YW EnFX02cYXkkQUhp1tuvPg4QtE w VGRoJME1nSfaMAzgd5LpNWAdF 02dbRCjs8T0WEOhyRgedTSiOj YxiMT8rJ6tBEsrgswfl3elzgn n Aoryr4unlv97qZ85N83zGFdtO UIuOJZ0IBJcWPPakShgsq9nnQ 9wIi8+YTdgr0lpl3rwdTi1McH w KNVcgtXflIfhNAD7w4RgPq20U 4QjeBqqt2OmJpr5le60jIYne8 I7yLG0ZBkrGESuyQ5aQJsdLhO 6 MZPqZzKtiS61aVOyBKtoHt9qv NqloRmzWS9uQSZgpgfaOQGvkD 8zFFGeoQEiqMcnVY6rXTElnsg m c847FmGzCEZ7RMGlzVYxK2Zni L8dXtQuELPjUHGiC9UqqBQcBX xtC556UXqnZcW0EAXjovQyZ3M s JXKvdMauJvD0e0K3Qq3Qs0Roh ixnVEI4CVmwGOX6PyFkHcGbWc U1V1EdZis5IPSopCllQA7aW1T h PKOtltdkqipyxZY0JYHuQTBlg V49vITjXUaoJn3lk7W5f778FS LfJDUxlE90Zz6gtJkaYLVfgZK U nJ3uzluev2urtdjlWaSuHSAzD Mf9AZe8AMLfnWulRtDiBKO4Py N4ZXR6nRWicV3skEoiquwpkA0 w Oyc+P48hkV3yALE3KGU3cefiX LFzmsObGV08LR98L6DfHbdpjG FibGU+AOMogiPveUdaKD7rPwY j g5pwi2AqXPvwK2DyHVAqTNvrP te7FQCkDCU0dEK1vC2kYSGySK yiu4X8oEB9L2WlqpGplw4nl8g s KKOoTJsiW20nwKQic4K5RZRbe EC1ZCLofLcqHoRtiA44Ylz+PG TnnZivx6CrOagae0dtd7rfgMg 9 PkQhAHRmkcUitQwmKKX1o1FuN y24F19gCXdqCEPgRTItCGHvNB GowUkqkx0qsH2aTa7+PGNvbCB 3 vVW5xJ9tGVDbHiB3LJvtW127C zPymBIwIpetf8gcx6jddCv7Ro AtXBTqskMvbKynSKE6c5WtLa8 8 B92dOGfsFJBqYZHlNYWaOSVpm Acqxr3jwH6tLb4+FM5gp7yogj 98pN35vGV+KFFoZGQ0mHmbDCi w LMOmmH8eUJrsUcF3CSBbIpPlt S49rIVpDNosGr6wwKodyAlmYQ 8yNWYhmwaic678ZpTom8oxDYZ w xKDdGHtwWZJ6V62fw1E6GUWnF ATcRGH6bUH7uZ9moKchyggpeD FoiStrufHkxXqlNMmnMDvrB11 6 IHRvcDsnPlBhdGllbnQgTmFtZ Gn6G9GhQtt7GOKesUuxCA4kfP MxRTniLm7ujZkhcMaiLA7zUOI p cvazx066RiCre6mkYNSfeRIvB DnjHNK1T82iz7E9IHVpWUYzMN J8cAO8dB8ldPtkdbvoxYFasGa g mzZgkVftQRleLVzbI495JADdh AeaRnCvlyHgRZWipXO1BS06JP 14kHTnz5O6mZQ8E5MnZRXnrzo t mwirjVY6RWGmMMQtlG05Dr6pe OpiXi7fXNZfVNI0IHUpzFMuF3 QtyH8yGbFdCNOkYPQrS6HgsCC t PKnbH040BWrqNyH7IPFyafKfG 4GvKBJlhMujDoT3o8S1Ec4BJ7 V9YH81MR96kFVif4U6sAE4T2V h CPToowkfyrzarSZ5AWElNSMfh J63Nn1nkAjuLc9ySJOuZOZ7YW FobWZrT7QtkZ3cMxXzNYWcBOQ w Y0VtoSHoQVrpK803AHnyDdY3X VMxozAvV0WuROMgqDhwZcM6k5 V8Hf9HEXf0FA81XC25qWZxu2V 5 sEN1Y3JgKCPpvnnycuvkqFV1J BUjVNMjvA15Qb5tjXknQy1rYB VoUWK1RPWqdSVvD6FvhO1kPdD j YPTjUXRyX2JwiJRhZBwpY101F MebKeH0PNMqdwVuO7LjTFNlaA wqJdS2h7V8Ja9BRJIsHG59CBG 5 gQC4QR19TK68Y5FdGtdjyDNgh +PHRhYmxlIHdpZHRoPScxMD NdJtYjbSytZJ9fXn8fKMDkLQG v cSqzdKWcCkXkd5jcFSImRWbeZ J8ptZadH7HztYV4OTXoc8o5Jl 74A41fL4TrzII+SXTmkOE5dIT 0 pL5kNiHmTyY3DEifV321IdWeh VRxUbycn4thk6skfFb7TnG3VI HpdtZawJtvPKB1w9JbHr15P08 s IHdpZHRoPSIxNSUiIHZhbGlnb i9rzU3dQn7+LXJwrJN1iEZ2pE 5mZhAeDlB7TKwnU182GdLgzKB v Xyfdv0ncr8wplAv1NrPuIRWxc oQiaAjfCBP0j0XeWn45T5BmcE jnx5NtWwe1jq98vPLwa6L4oIU 9 A5TnEPIudkuduUZkrUekXR9fI MIgucszNHQgfH2mAQTpW1z1Ni JrEeY3GRglZ0CinrZ2OZEwrMG g CMtkQYV1Q55xr9M7OJOiQIJzW NU1gHL0vV9kqSiaqlepvFYnbV jraeZetTjmQLqkWNkfW444JOX v iTvsYLNfoO8eTOFxvFKtwXmfF F4dCDNwovjhDqpATDMUKCIPUN RJODasPIbHXB99M8CrZpg3VQB z gNjhQA4gfPYrFAtcXn6sgFtxu MlzHY9oVXUcwiroBHUpqF2eTR AceESdeLfwAJ4lWSCtnjdox45 0 DvLiJUK6EHNviSVoZ5LqvY8bM kOcOYIaLHOnB1KdwRPiXRqmE4 26RErlLrJ2GIDkxwLjA5KnLEH s hDdnGgD3j0V3Ga1gHL3tZj6iP In7DO05CZ52bTAsc1Q4jSO6M3 ZhUYCyoepcmpsaeUZ1SQKhAGK w hY38pHLmHNidWh1mp5N2i747C AUsCOSztY98Xp5ifSneFCXsmK PAcV1gejmlh1jqqpaqWqReBEP w STj3OPc1SPZnfIfePcMsXNL6M fW4CYG3ePOvnB7olQjgwhwcvB 9wOyc+ZEOgTBIglfP9J9OqLro 0 HPKxjGdbJY6mbZXiBXbnXf8kj GowvYpfDC7sSHHlgqmuKKSziW 0nWFCsjFGstJvzEY6tWHKamyz m a498DnFhCQY0YTOjnGVuJ4Lir K6nHhOjLBGnNOHtP4CxnQOlUX nnY249ZOgmHkX5BCLlwhHoX0V s RGCntDcyEhR6k4H1Ho6QTMwPV X12MX75uUIhg8C1rHY2Q6JxQF AdkiwunbnguDA4BXNrFHRlpO1 7 mGZnTWvyZf3oe2X9z547KFFkY KOymH98Mk5xeGnqSBUcjYVLnY 6omvphw1fastcqWqOqUPNhGCh 0 QKs8FUSnbSsgAsUnGII5YtJ5G GC1aOYpdW4nzXsuiihltG4dBp c+C4L0R6XpGkkwtFO+UE63ISA s ZU33uVFtcTLut4ppuFs6ApLbA IXdOVO6iAszCLmwo1SwPBHgB3 6pePUsl7J7AXQuvDessYGzSiR l sBY0mF5bJUmkqymsu3vnsituV khuz5beus92zC11W58nDIjhHG GqYXIfQUVsCBRdeMoiqr0wcS0 w Ii8+DPPbtDF0gFT1iV4dEfXsK pB5TLulA463VcKdnWTjOqraw7 rct8szkMc7PzKfKSJtbvKcbOk u FNQ3i4VaBq91Q54xBPufPBKzH JIxBLQpFTOtzHqljm1quK1jXc 8+RN6av2lgol64sF66eMR+PHR k SRK7nBzgLFwnDSGagD6uLKrvF sD4WYAgDnQpmC66rCNhFQhsZo 1siBurmLkgTC3yBQHuzwxzz44 0 ImItt4ocAOXzbNIfIZzaQQO2X 25ee9R4STOkWDWpWCL1oEJ8uD 1hbGlnbjogbGVmdDsgdmVydGl j YIvrTXjgU829LRKfsMzkChHrf IGtD9razeCXCN7kLdxdiPV+PH GqXCQ3qTiwTAliXUWyhZ5cPTF p U5p4TiHbMjP9FOnhR1UqxnW2F ZLilALxVBHkpPDJfP5lgbyix8 iuixecEgYgPRCcUBa5AKo8YJJ s pTriXhLzOIK9DuK1FPU4zGDzc E5inWyjfflboS8dZjx+RklOOj wvdGQ+IKMzENY1dNsjQXxxVRR k yM3kVXZwQ8w6QmUkFiJ8XQgcD 8ZpvbU6JMLtpGHoYLCewUUVnE 1kncjgt0kgwhalErOgZKXwVQs 0 JDf1ETUasUtaHhMwDGP5AfN2F TF5vKKmmP9gmEdvbosevQ7yKa c+TVJOOjwvdGQ+AKIoYLU6yNl l EVtyLJOzjU7aWFClS3x1OfIxD kE3WLevD6PrpgE4ETKyvTNkEP WcqMACjG4qdzgmh2kjoozfVqT w IDErBKt6GMc7OSXqsGmlSvZtF FR0MaD4ZVU2bRXouK5xcYsmte frbT3gRdq+PYZ5PWU9EG01LY9 8 O2DhChxhbUPccGE+PHRhYmxlI HdpZHRoPScxMDAlJyBzdHlsZT 9hVf7yDITfRJOttCuhmUUeJsL j b2x (more content not included)... [facility] Consent Formson 12-23-2020 Consent Forms [id number] FF [facility] Outside Recordson 12-23-2020 Outside Records [id number] FF [facility] Urgent Care Note- Provideron 12-23-2020 Urgent Care Note- Provider Patient: CARMELITA EASTMAN Age: 45 years Sex: MALE : 1975 Associated Diagnoses: Strain of right elbow and forearm; Sprain of right elbow; Sprain of right shoulder; Abrasion of left forearm; Contusion of left forearm; Contusion of right shoulder Author: Irena Weinberg PA-C History of Present Illness OCCUPATIONAL HEALTH FOLLOW-UP Date of injury: 11/12/20 Claim #: [id number] Employer: [employer] Mechanism of Injury: Altercation between self and someone resisting arrest Diagnosis: Contusion left forearm, Sprain right elbow, Strain right arm 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 On 11/[address] the cloud systems administrator ordered an immediate arrest. When he was attempting to handcuff the gentlemen when that individual resisted and ran. There was a scuffle inside the courtroom, followed by a karol into a hallway where there was another scuffle and then a karol through another set of heavy, wooden doors. When this was all said and done, Mr. Eastman noted blood to his left forearm with some left forearm and wrist pain and swelling, as well as right shoulder, elbow and hand pain. He was seen in our ER where x-rays of his right elbow and left forearm were non acute. He was placed on light duty work. 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 He cannot even actively reach for and use his weapon without significant difficulty and pain. He did not improve after Prednisone. ANATOLIY kohli suggested his elbow and forearm pain was referred from an additional shoulder problem. He was seen by Dr. Sheriff. Dr. Sheriff requested additional condition of right shoulder contusion. This is pending. MRI of the elbow is allowed, but cannot be performed because of a spinal stimulator he has in his back. Symptoms on the left have improved. On the right he continues with difficulty with any behind the back and overhead movement due to pain and stiffness in that arm and shoulder. He continues with right elbow pain, mostly medially that shoots up and down his arm, especially when he tries to full extend and flex the arm. He remains very tender in this region on exam. He is noting numbness/tingling in his right hand that comes and goes with changes in position. His right hand feels weak since this happened and it will swell. He will wake with 8/10 on the right if he is sleeping on that side and finds it difficult to sleep for more than a few hours at a time due to pain. Pamela is giving him bad headaches. With any repetitive use of this arm he notes increased pain and tingling throughout his arm and right hand. No fevers, chills or malaise. No other joint pains or myalgias. No other numbness, tingling or weakness. Ecchymosis better, abrasion is healed, no other skin rashes or lesions. There are no other associated symptoms. Nothing else makes the symptoms better or worse. Symptoms are described as sudden onset, moderate in nature and persisting. Health Status Allergies: Allergic Reactions (Selected) No known allergies. Medications: (Selected) Prescriptions Prescribed acetaminophen-oxycodone 325 mg-5 mg oral tablet: 1 tab(s), PO, Daily, to last 30 days ok to fill, 30 tab(s), 0 Refill(s) Documented Medications Documented ibuprofen 200 mg oral capsule: 400 mg = 2 cap(s), PO, q4hr, PRN: for pain, 120 cap(s), 0 Refill(s). Past Medical/ Family/ Social History Medical history: No active or resolved past medical history items have been selected or recorded.. Surgical history: Facet joint nerve block ([id number]) on 10/27/2020 at 45 Years. Comments: 10/27/2020 9:10 EDT - Araseli Cabrales BILATERAL LUMBAR MEDIAL BRANCH BLOCK T12,L1,L2,L3 Epidural steroid injection ([id number]) on 09/15/2020 at 45 Years. Comments: 09/15/2020 10:13 EDT - Araseli Cabrales CAUDAL EPIDURAL STEROID INJECTION Stimulator, device ([id number]) on 04/30/2014 at 38 Years. Comments: 09/22/2020 9:08 EDT - Swapna Arana stimulator low back placed 2015 Fusion of L4,L5,S1 fused ([id number]) on 04/30/2007 at 31 Years. Cage ([id number]). Comments: 09/22/2020 9:08 BARTT Swapna Stark M bilateral fused cage. Family history: No family history items have been selected or recorded.. Social history: Social & Psychosocial Habits Alcohol 03/05/2020 Alcohol Use: Current Frequency: 1-2 times per month Employment/School 03/05/2020 Status: Employed Substance Abuse 03/05/2020 Substance use: Current Frequency: Daily Comment: PRESCRIBED FOR DPN - 03/05/2020 11:23 - Regla SIMON, Sam Desouza Tobacco 03/05/2020 Smoking tobacco use: Never (less than 100 in l Electronic Cigarette/Vaping 03/05/2020 Electronic Cigarette Use: Never . Problem list: Active Problems (2) Kidney stones Pain management . Physical Examination Vital Signs Vital Signs 12/22/2020 17:26 EDT Temperature Oral 36.5 DegC Peripheral Pulse Rate 76 bpm Respiratory Rate 16 br/min Systolic Blood Pressure 132 mmHg (more content not included)... Normal [facility] ED Clinical Summaryon 2020 ED Clinical Summary [facility] ? Urgent Care [address] [place] [address] Clinical Summary PERSON INFORMATION Name: CARMELITA EASTMAN Age: 45 Years Sex: MALE : 1975 MRN: Acct#: Visit Reason: Medical screening exam; [facility] F/U RT ELBOW INJURY Arrival: 12/22/2020 17:08:10 Discharge: 12/22/2020 17:52:00 LOS: 000 00:44 Check In: 12/22/2020 17:08:10 Checkout: 12/22/2020 17:52:00 Address: [facility] [place] [address] PCP: Misbah Donahue PROVIDER INFORMATION Provider Role Assigned Unassigned Irena Weinberg PA-C ED PA 12/22/2020 17:09:46 Azul Washington ED Nurse 12/22/2020 17:18:29 VITALS INFORMATION Vital Sign Triage Latest Temperature Tympanic Temperature Temporal Artery Pulse Rate O2 Sat Respiratory Rate Blood Pressure /80 mmHg /80 mmHg MEDICAL INFORMATION Medications Given: Allergy Information: No known allergies PHYSICIAN DOCUMENTATION DISCHARGE INFORMATION: Discharge Disposition: Home Discharge Location: Home PATIENT EDUCATION INFORMATION Instructions: Follow-Up: With: Address: When: Return to this practice Comments: Jan 19 at 5 p.m. DIAGNOSIS: Abrasion of left forearm; Contusion of left forearm; Contusion of right shoulder; Sprain of right elbow; Sprain of right shoulder; Strain of right elbow and forearm Patient Understands: Yes - Patient/family/caregiver verbalizes understanding of instructions given Comment: Normal [facility] ED Patient Summaryon 021 ED Patient Summary [facility] ? Urgent Care [address] [place] [address] PATIENT DISCHARGE INSTRUCTIONS Patient Information Name: CARMELITA EASTMAN Age: 45 Years Date of : 1975 Reason For Visit: Medical screening exam; [facility] F/U RT ELBOW INJURY Arrival Time: 12/22/2020 17:08:10 Primary Care Physician: Misbah Donahue Attending Physician: Irena Weinberg PA-C Comment: Patient Education With: Address: When: Return to this practice Comments: Jan 19 at 5 p.m. Medication Information: The exam and treatment you received today in the [facility] Emergency Department were for an urgent problem and are not intended as complete care. It is important for you to follow up with a doctor, nurse practitioner, or physician?s customer relations assistant for ongoing care. If your symptoms become worse or you do not improve as expected and you are unable to reach your usual health care provider, you should return to the Emergency Department, we are available 24 hours a day. For those patients who have received Radiology results, the interpretation of your X-ray as given to you by our Emergency Department physician is only a preliminary report. The Radiologist will review your films and if there is a change in the diagnosis you will be notified by phone. Please make sure you have provided a working phone number so we can reach you if necessary. In the event that you had a lab culture while you were a patient in the Emergency Department, you will be notified by phone if there is a need to change your antibiotic. Please make sure you have provided a working phone number so we can reach you if necessary. [facility] Emergency Department has provided you with a complete list of medications post discharge. Please inform your rate reviewer/provider of your visit and for further instruction on these medications. Any specific questions regarding your chronic medications and dosages should be discussed with your primary care physician(s) and/or pharmacist. Medications That Were Updated - Follow Below Instructions [facility], [address] [place], [place] [id number], [phone] Updated: acetaminophen-oxycodone (Percocet 5 mg-325 mg oral tablet) 2 tab(s) PO daily at bedtime Claim [id number] DOI 11/05/20; as needed as needed for pain. Refills: 0. Other Medications Updated: acetaminophen-oxycodone (acetaminophen-oxycodone 325 mg-5 mg oral tablet) 1 tab(s) Oral every day. to last 30 days ok to fill. Refills: 0. Medications to Continue That Have Not Changed Other Medications ibuprofen (ibuprofen 200 mg oral capsule) 2 cap(s) Oral Every 4 hours as needed for pain. Visit Information Visit Diagnosis: Diagnoses This Visit Abrasion of left forearm (S50.812A) Contusion of left forearm (S50.12XA) Contusion of right shoulder (S40.011A) Medical screening exam ([id number]) Sprain of right elbow (S53.401A) Sprain of right shoulder (S43.401A) Strain of right elbow and forearm (S56.911A) If you received any narcotics, sedation, or any other medication that causes drowsiness for the next 24 hours, unless otherwise directed: ? Do not drive a car. ? Do not operate machinery such as power tools, lawn mowers, drills, sewing machines, or stoves ? Avoid alcoholic beverages and drugs for allergies, nerves, or sleep ? Do not make important personal or business decisions or sign any legal documents Reason for Visit: here for [facility] recheck, right arm still with 6/10 pain Allergies: Substance Reaction Symptoms Type Comments No known allergies Drug Vital Signs: Vitals and Measurements this Visit (last charted value for your 12/22/2020 visit) Vital Signs This Visit Temperature Oral: 36.5 DegC Peripheral Pulse Rate: 76 bpm Respiratory Rate: 16 br/min Systolic Blood Pressure: 132 mmHg Diastolic Blood Pressure: 80 mmHg Problems List: Problem Onset Comments Kidney stones Pain management Sees Dr. Owusu for back and joint pain Major Tests and Procedures: The following procedures and tests were performed during your ED visit. Laboratory Radiology Cardiology Viruses or Bacteria What?s got you sick? Antibiotics only treat bacterial infections. Viral illnesses cannot be treated with antibiotics. When an antibiotic is not prescribed, ask your healthcare professional for tips on how to relieve symptoms and feel better. Usual Cause Illness Viruses Bacteria Antibiotic Needed Cold/Runny Nose NO Bronchitis/Chest Cold (in otherwise healthy children and adults) NO Whooping Cough Yes Flu NO Strep Throat Yes Sore Throat (except strep) NO Fluid in the middle ear (otitis media with effusion) NO Urinary Tract Infection Yes Antibiotics Aren?t Always the Answer www.cdc.gov/getsmart GET SMART Know When Antibiotics Work U.S. Department of Health and Human Services Centers for Disease Control and Prevention S (more content not included)... Normal [facility]gent Care Recordon 021 Urgent Care Record [facility] ? Urgent Care [address] [place] [address] PATIENT DISCHARGE INSTRUCTIONS Patient Information Name: CARMELITA EASTMAN Age: 45 Years Date of : 1975 Reason For Visit: Medical screening exam; [facility] F/U RT ELBOW INJURY Arrival Time: 12/22/2020 17:08:10 Primary Care Physician: Misbah Donahue Attending Physician: Irena Weinberg PA-C Comment: Visit Diagnosis: Diagnoses This Visit Abrasion of left forearm (S50.812A) Contusion of left forearm (S50.12XA) Contusion of right shoulder (S40.011A) Medical screening exam ([id number]) Sprain of right elbow (S53.401A) Sprain of right shoulder (S43.401A) Strain of right elbow and forearm (S56.911A) If you received any narcotics, sedation, or any other medication that causes drowsiness for the next 24 hours, unless otherwise directed: ? Do not drive a car. ? Do not operate machinery such as power tools, lawn mowers, drills, sewing machines, or stoves ? Avoid alcoholic beverages and drugs for allergies, nerves, or sleep ? Do not make important personal or business decisions or sign any legal documents With: Address: When: Return to this practice Comments: Jan 19 at 5 p.m. Medication Information: The exam and treatment you received today in the [facility] were for an urgent problem and are not intended as complete care. It is important for you to follow up with a doctor, nurse practitioner, or physician?s customer relations assistant for ongoing care. If your symptoms become worse or you do not improve as expected and you are unable to reach your usual health care provider, you should return to the Emergency Department, we are available 24 hours a day. For those patients who have received Radiology results, the interpretation of your X-ray as given to you by our Urgent Care physician is only a preliminary report. The Radiologist will review your films and if there is a change in the diagnosis you will be notified by phone. Please make sure you have provided a working phone number so we can reach you if necessary. In the event that you had a lab culture while you were a patient in the Urgent Care, you will be notified by phone if there is a need to change your antibiotic. Please make sure you have provided a working phone number so we can reach you if necessary. [facility] has provided you with a complete list of medications post discharge. Please inform your rate reviewer/provider of your visit and for further instruction on these medications. Any specific questions regarding your chronic medications and dosages should be discussed with your primary care physician(s) and/or pharmacist. Medications That Were Updated - Follow Below Instructions [facility], [address] [place] [id number], [phone] Updated: acetaminophen-oxycodone (Percocet 5 mg-325 mg oral tablet) 2 tab(s) PO daily at bedtime Claim [id number] DOI 11/05/20; as needed as needed for pain. Refills: 0. Other Medications Updated: acetaminophen-oxycodone (acetaminophen-oxycodone 325 mg-5 mg oral tablet) 1 tab(s) Oral every day. to last 30 days ok to fill. Refills: 0. Medications to Continue That Have Not Changed Other Medications ibuprofen (ibuprofen 200 mg oral capsule) 2 cap(s) Oral Every 4 hours as needed for pain. Visit Information Allergies: Substance Reaction Symptoms Type Comments No known allergies Drug Vital Signs: Vitals and Measurements this Visit (last charted value for your 12/22/2020 visit) Vital Signs This Visit Temperature Oral: 36.5 DegC Peripheral Pulse Rate: 76 bpm Respiratory Rate: 16 br/min Systolic Blood Pressure: 132 mmHg Diastolic Blood Pressure: 80 mmHg Problems List: Problem Onset Comments Kidney stones Pain management Sees Dr. Owusu for back and joint pain Patient Education Viruses or Bacteria What?s got you sick? Antibiotics only treat bacterial infections. Viral illnesses cannot be treated with antibiotics. When an antibiotic is not prescribed, ask your healthcare professional for tips on how to relieve symptoms and feel better. Usual Cause Illness Viruses Bacteria Antibiotic Needed Cold/Runny Nose NO Bronchitis/Chest Cold (in otherwise healthy children and adults) NO Whooping Cough Yes Flu NO Strep Throat Yes Sore Throat (except strep) NO Fluid in the middle ear (otitis media with effusion) NO Urinary Tract Infection Yes Antibiotics Aren?t Always the Answer www.cdc.gov/getsmart GET SMART Know When Antibiotics Work U.S. Department of Health and Human Services Centers for Disease Control and Prevention December 2013 [facility] Coding Summaryon 12-17-2020 Coding Summary HTMLBase 64 AjfiwlkyBWi2yPi+PGhlYWQ+P P5MTTRoK90alCAqmN1YO1hNHJ 0WPUQXGUNZKC7ORM0zwGO9FYf gA3KawfRo HvvxjPCeWV15APl0VOR3fNfxY GqjsV4rkZGzC8q7GiUnWO69jA 02QEogNHEiMoD7LcVkylsfxAB y N0xvEgBiaFOhQvs+PHRhYmxlI HdpZHRoPScxMDAlJyBzdHlsZT 3sOx3cLFCbFFNzfLnldTQnZeQ j o3gxYMMrPDuqJI1nxUwhD1Vbq ZC2PKUwq6y7Ti03nSS+PHRkIH X6xAiwXXmds201KfKss1nbCNS 3 qDVwEPlcIND2A32pg9Y4MCIyZ MVvTEU9iKF9iI0rzYsfuedeN3 ZvqMHaLqK3GNT1xKYrcD7apDo n sktmfL5yWzr+E24OSR2PLWKCR Z0KHyy6L9GkTctygCK+PC90YW KgEP91bFXpdFDgt6jgeLz0GkO w HYIxUSK6sJyfZAdqy4DfZBXjN 70srIJim4D6QDNpaHthzZGuDi AtvJE9cK6sYRondhmnh2kqtwx n Stwjm9rpzu59kA44Z06iUWocU AWkDVA1HVCvIDIcpLwdqa0bcR 9wIi8+FUxnm6oza7betJs9KzX w IKUqpyIfpAczIXX8f3VoHg25F 1RzjBumx9OpBzw1ls64jCBkn6 H7aTL4SXnoOCFtaS4sTNjsLdU 6 HXAfMyJapY48gSVyCYceIj9yx FlphPsqKS3sSWTderaoGMCkmS 0dMZRljBKtjXeiKZ1uHPSwvav m i125WqRyTBZ7ELKiwXJqA9Wdf K1jDeRgMVLaCXAyN7AujUZsJM qxI073WYrvDeC7IRUfhdEjX5J s JGAvaOhuPoS0n7C4Oi8Hq6Xwk zmnDNZ5KMytHIF3RiDzHwNrFl U5O0KyFha3EAUfeVdaTM2fI6R h YBDsafkoauxgcVP1VNLqQWXmf V34iPWxWTtaRg5qh8K1z216YC KrDXLnnN53Yw9pyWnkLGMozFU U zM7lfgslc0twosqtZdQxQPGyI Aq4AXk2SMGhhZyjFlLiGFJ3De W7TKO1mGNzyD3iyTzcieleiZ6 w Oyc+I87guY2kPDF8NJB8lkaoQ UMjapZuMV04AB72R2CpBrlfmY FibGU+FRAyttSvpZklUI5pYeH j f7vja3EkYSisG1DaHMIkPLtoD hi0NEHbCZB4pXG0aK1sGXPgWY nbe7Y1tBL7A0SwylDmdb4bf0d s ATMoMWygN56isHDpi4Q3MDDfj GF3BCCfqRvrXiCskS09Pph+PG YflEfry6BgHdasp0adq0ccbDk 9 TaTzCASmduTezJqpWEO7s5ZqV q88M99pEXpgCNPvOXKlSZAsMA DtcEvnnl9ztV6hAd8+PGNvbCB 3 iPY3wB6bAFKuQjA0UGqkB628S cFpzAXkUyjdf3gaq8mujKn3Xg FmPHIeyrDenEecNKX3e1TaIm9 8 F46iTJlwWNYcVYRuSOIjYWNbo Xooxf9ysA0tUk3+RP8on3dyqo 79yY10cGY+VVHqRKQ2oEkuDWj w TTDwgS5pIKapXyQ5LYLqJlTad P72yOMeDXqjOw7jnJsehNqeSX 6jWIVjqmokg344FpNvo3weSDA w yMHtBFgtVBB0B64zk8Z4RUHpG FFgVOQ6hPT9mO9gsTzwsgbzrD EenNgnmySazXmuOOenJWpuN88 6 IHRvcDsnPlBhdGllbnQgTmFtZ Ew8G1IhFzy2GZYpsZnyED9glQ NiMMwyYz9adUgciEeiAT2oBXA p zccio284YtPxn4btLXHxhYPvG BvfRPV6Q22rx0J1OERuZXLzKS T2oVU3xB4gyOrchwxwjYGnrUm g bkXlvWzfTZbkNVzuJ457SKBwr IaiVdSjllWsGTAncDQ9RQ20DU 77pZTlv8C8iLG7B0WeTLKpxhn t supudYH0JQQmYFTjnE10Fn7jy AsmMr9jTFZdGDJ2DVHnzOAsG4 UduB2gOmPhCWBqHEIdE0JogIM t GTpiM236PBrcUuP3FDHnzrEsA 2ZsYPOrvTmvZcL7x4J6Yz1SY2 J2TM99YZ16iVFei7T4sNG0O5X h KCQictxsxmqbsJS8MPYzDGSkw Q33Bl9qlLlwMk7bGIHjZYM3QY SjlXQhW5VgfH1tEjUlCAFxGHG w K9GdePGqSGftP403VAvuPoT0V WDjnpUwK2RfRPSbwGqrTsD4y8 W4Ur0LQCt3SC51WT78gXMfk1D 5 wTE0K9QmZRTeytlcingncJR4T ZAgXHJsmX83Yp4myDmeKu4mTG RgDPL8PPIjvVZrZ1WlzO2oRpH j WBTgNIUeJ6BfaLLsJNzuT515A RpvAaZ5RHJsvlIsK7XtJGBjqG lxNaY2f7D4Bk4JCUStDS64UQW 5 aYR9UC95US44Y3VwMilirGUzc +PHRhYmxlIHdpZHRoPScxMD XiPhKttFaxQE7rGg7aYYMfTEJ v uNslfZKbFzXya5omQCMhUMpwS V5dcOouL9DymFC7BONfs7u0Pv 15U44vO2QjmQZ+ZFHaiFY2rCR 0 vX3qYwTuPpH3TQbeK021CjAcg ZVjIybjq9zhg6qzeMu3HcN4NA YsomDhxFkhKJW3t2ZgKe26E69 s IHdpZHRoPSIxNSUiIHZhbGlnb l4tzK7sOb3+ZASyxPU5vHZ5jF 5qPwTmMfV1SLimG433UsQyjGV v Kspvv0rlw5qjwQv6TaTbCXVxl uLiePkvMFQ2d2TpDj62F3IqyP hrw3FdGho3kq79rHHku1U6uIW 9 J3WkPPHjkcmifRAngWxaLU4xM UEupxucBFUijZ2tAEJtC4w0Vd FrMoW5REfzE5KxwtD3ZCOboMX g TJcxUDT8R83io7Z6IDQiZNZzH YW8bNG3fI3cmJtkupdcpRVylB aofrHtjZvjONpbUQqlB035QTG v iOzzJLDbvS7nYFVpvORaqOknU S2gWQXjbcsqJmfATCZUKGZSAM YJOXviLHdMDY89O3RuIha1OOH z iUcvAD7svRHqWHsfIx0leNcvp IbyUZ9cBJIzwtliUAYezJ1tVY UnvAWxyGdwKT6fEZUcvcbjj32 0 OzEcSMD7JEYbiIElW0VbmB5eU mEtYGQwGDUxC8KkcWZzNAyvN2 66GDpqGiW7XYWphiTrP6AwTLJ s nJtpPpU9s7Z0Fp7dFN2jJb4pP Nd1YB17UL38kEQng2G2wTG5O1 LtXMPpaaiptyezlXJ4ZGTzMGE w fL50yJVtLYdkQp8kg4Y5k240Y JKgGJPajO90Zm5lsUnsQVSkdA SXfJ0iqsidm7qzbtleCiScRST w VYp3HKh7NAFtzZtfCeAbKRO5U dJ1GKI1jDGmdJ2nxLdsqghefV 9wOyc+OUCsAWHdeiQ7B9KkUvj 0 ZUFmuHpaFV4uuHTuZVgnMo5oo TtinUflFG2yLIFvtistGXFswX 5eXRCjwBBxyDrwKT2nZDFyeza m v252OrIpKEL3OQDdlPAcJ9Dkw S3dNdJhGBBwRCWtI9PxoPCnNZ bvV566ISstCiB0AVFunvUlT5K s TWSnxKodUbX5y7K1Lb8NGCrWL L33DL58gUNfo2I2hDZ1D4XuYM YkyvklorxusDW9ZYBwASEkbX7 7 sMRlNGtjIl4ll0Y5m880OQPoW DZuxV06Nr8olRkgAUDqyPQEnL 0rgnrwk2hkbrgdNiXpTBBhRBg 0 COj6ZSJwhEkjPuHpRWI5XpZ3A JL5xUIiqZ8hoFgyvbhwgB5dAs c+Q4V5T5CdHunbtGD+LO37AXC s MX95mRBtcLRds6ozgTo9JuYpM CBhVEZ0rUdpREbgi4KfIZGzX5 5aeGZmu6I8PETkxQzpxSXiAwP l ySC9vZ4dILytsmtje5snkcofC hajp5btmp42hZ28C08fCCzvOL IoOBVaXXOfWNBzfWjplw4rsG6 w Ii8+VLPxxWM3gWG3pY6rNzDaD cZ8POsoN073GeElyNXrEhuwn2 ftq8gurGi2MfTdAXDtheYuvVn u PUY7o8ZxCg81S69cHFzpRPVeB ODoKDGsWOEmdIuqpc6kvO9sLc 8+WQ8vz3gccs62aK35eSO+PHR k PYR7kTxiLWyzLKMjwW4tDLsjL jP7GWFnEbZqtI82xQSdMEeaKe 9wfMjbkIaiNV0tRVLtimgbi24 0 WmHtx7tsFPErkICbMUeqNEE4P 67dy9J2KNPuPZPzDDU3pCZ7wZ 1hbGlnbjogbGVmdDsgdmVydGl j LFryIWghG739UZNxjZdiYdFnz WJfS5dsmxMOPG7lNaydzJE+PH YjDUP2dIblVBzsJQSqrR5jKCJ p E9q0TdMrPeQ6VCaoV2KsvgX7N FLsnEQeKBEgmMRGjC0gaidig1 ptjzboDfQvVTSlALa5JPz3XVQ s sOhbBnMpCSY7JbB6WUF6jJBrj X6jkJbhvzhwsY8pJsd+RklOOj wvdGQ+VKZhNOT3uQtbNWufOJJ k eM0wSMWiU7p1GmQxKxT3NDlnK 1ZwkzZ6GGNhqOZfUULfsVANnV 5kndbra2mqibrtBwLpOHTaNGs 0 NTd2EJKneQouPeNmYRQ2ZpG9T EN5lQEouY7ubAgbkauqkU8sZr c+TVJOOjwvdGQ+QWAvITU7nNa l GOdiOKNozC4bZWUnG4m8JkLlI gH5HVezL9KpzoC3JCBmkWMwVK PuxAJEmV4qsryjo8ygjyspTfX w FRYzUYv6LUv5ASOgfPjzEmMmH BH8UuH6ZXI9xUKcuW3iwYxwst ycaV9tAua+OYF5JFS4OD82WZ5 8 E0HsOwlnkFBiuOX+PHRhYmxlI HdpZHRoPScxMDAlJyBzdHlsZT 7dBv5sTWKkGUXsgPyrgNWoAoD j b2x (more content not included)... [facility] Billing Authorizationson Billing Authorizations [id number]#1.00OTGTI [facility] Provider Orderson 12-16-2020 Provider Orders [id number]#1.00OTGTI [facility] Provider Orders [id number]#1.00OTGTI [facility] Provider Orderson 12-09-2020 Provider Orders [id number]#1.00OTGTI [facility] Outside Recordson 12-08-2020 Outside Records [id number][facility] Clinical Summary [facility] ? Urgent Care [address] [place], [place] [id number] Clinical Summary PERSON INFORMATION Name: CARMELITA EASTMAN Age: 45 Years Sex: MALE : 1975 MRN: Acct#: Visit Reason: Medical screening exam; [facility] F/U- RT ELBOW INJURY Arrival: 12/07/2020 16:49:00 Discharge: 12/07/2020 18:11:00 LOS: 000 01:22 Check In: 12/07/2020 16:49:00 Checkout: 12/07/2020 18:11:00 Address: [address] [place] [address] PCP: Misbah Donahue PROVIDER INFORMATION Provider Role Assigned Unassigned AURORA Hall, Ivonne ED Nurse 12/07/2020 16:52:27 Irena Weinberg PA-C ED PA 12/07/2020 16:53:26 VITALS INFORMATION Vital Sign Triage Latest Temperature Tympanic Temperature Temporal Artery Pulse Rate O2 Sat 97 % 97 % Respiratory Rate Blood Pressure /86 mmHg /86 mmHg MEDICAL INFORMATION Medications Given: Allergy Information: No known allergies PHYSICIAN DOCUMENTATION DISCHARGE INFORMATION: Discharge Disposition: Home Discharge Location: Home PATIENT EDUCATION INFORMATION Instructions: Follow-Up: With: Address: When: Return to this practice Comments: SunDecember 22 at 5 p.m. DIAGNOSIS: Abrasion of left forearm; Contusion of left forearm; Sprain of right elbow; Strain of right elbow and forearm Patient Understands: Yes - Patient/family/caregiver verbalizes understanding of instructions given Comment: Normal [facility] ED Patient Summaryon 021 ED Patient Summary [facility] ? Urgent Care [address] [place] [address] PATIENT DISCHARGE INSTRUCTIONS Patient Information Name: CARMELITA EASTMAN Age: 45 Years Date of : 1975 Reason For Visit: Medical screening exam; [facility] F/U- RT ELBOW INJURY Arrival Time: 12/07/2020 16:49:00 Primary Care Physician: Misbah Donahue Attending Physician: Irena Weinberg PA-C Comment: Patient Education With: Address: When: Return to this practice Comments: SunDecember 22 at 5 p.m. Medication Information: The exam and treatment you received today in the [facility] Emergency Department were for an urgent problem and are not intended as complete care. It is important for you to follow up with a doctor, nurse practitioner, or physician?s customer relations assistant for ongoing care. If your symptoms become worse or you do not improve as expected and you are unable to reach your usual health care provider, you should return to the Emergency Department, we are available 24 hours a day. For those patients who have received Radiology results, the interpretation of your X-ray as given to you by our Emergency Department physician is only a preliminary report. The Radiologist will review your films and if there is a change in the diagnosis you will be notified by phone. Please make sure you have provided a working phone number so we can reach you if necessary. In the event that you had a lab culture while you were a patient in the Emergency Department, you will be notified by phone if there is a need to change your antibiotic. Please make sure you have provided a working phone number so we can reach you if necessary. [facility] Emergency Department has provided you with a complete list of medications post discharge. Please inform your rate reviewer/provider of your visit and for further instruction on these medications. Any specific questions regarding your chronic medications and dosages should be discussed with your primary care physician(s) and/or pharmacist. New Medications [facility], [address] [place], [place] [id number], [phone] acetaminophen-hydrocodone ([place] 5 mg-325 mg oral tablet) 1 tab(s) Oral 3 times a day as needed for pain for 7 Days. Claim [id number] DOI 11/05/20. Refills: 0. Medications to Continue That Have Not Changed Other Medications acetaminophen-oxycodone (acetaminophen-oxycodone 325 mg-5 mg oral tablet) 1 tab(s) Oral every day. to last 30 days ok to fill. Refills: 0. ibuprofen (ibuprofen 200 mg oral capsule) 2 cap(s) Oral Every 4 hours as needed for pain. Visit Information Visit Diagnosis: Diagnoses This Visit Abrasion of left forearm (S50.812A) Contusion of left forearm (S50.12XA) Medical screening exam ([id number]) Sprain of right elbow (S53.401A) Strain of right elbow and forearm (S56.911A) If you received any narcotics, sedation, or any other medication that causes drowsiness for the next 24 hours, unless otherwise directed: ? Do not drive a car. ? Do not operate machinery such as power tools, lawn mowers, drills, sewing machines, or stoves ? Avoid alcoholic beverages and drugs for allergies, nerves, or sleep ? Do not make important personal or business decisions or sign any legal documents Reason for Visit: Patient arrives to for [facility] follow up. Allergies: Substance Reaction Symptoms Type Comments No known allergies Drug Vital Signs: Vitals and Measurements this Visit (last charted value for your 12/07/2020 visit) Vital Signs This Visit Temperature Oral: 36.6 DegC Peripheral Pulse Rate: 73 bpm Respiratory Rate: 16 br/min Systolic Blood Pressure: 134 mmHg Diastolic Blood Pressure: 86 mmHg SpO2: 97 % Oxygen Therapy: Room air Problems List: Problem Onset Comments Kidney stones Pain management Sees Dr. Owusu for back and joint pain Major Tests and Procedures: The following procedures and tests were performed during your ED visit. Laboratory Radiology Cardiology Viruses or Bacteria What?s got you sick? Antibiotics only treat bacterial infections. Viral illnesses cannot be treated with antibiotics. When an antibiotic is not prescribed, ask your healthcare professional for tips on how to relieve symptoms and feel better. Usual Cause Illness Viruses Bacteria Antibiotic Needed Cold/Runny Nose NO Bronchitis/Chest Cold (in otherwise healthy children and adults) NO Whooping Cough Yes Flu NO Strep Throat Yes Sore Throat (except strep) NO Fluid in the middle ear (otitis media with effusion) NO Urinary Tract Infection Yes Antibiotics Aren?t Always the Answer www.cdc.gov/getsmart GET SMART Know When Antibiotics Work U.S. Department of Health and Human Services Centers for Disease Control and Prevention December 2013 Normal [facility] Urgent Care Note- Provideron 12-07-2020 Urgent Care Note- Provider Patient: CARMELITA EASTMAN Age: 45 years Sex: MALE : 1975 Associated Diagnoses: Strain of right elbow and forearm; Sprain of right elbow; Abrasion of left forearm; Contusion of left forearm Author: Irena Weinberg PA-C History of Present Illness OCCUPATIONAL HEALTH FOLLOW-UP Date of injury: 11/12/20 Claim #: [id number] Employer: [employer] Mechanism of Injury: Altercation between self and someone resisting arrest Diagnosis: Contusion left forearm, Sprain right elbow, Strain right arm 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 On 11/[address] the cloud systems administrator ordered an immediate arrest. When he was attempting to handcuff the gentlemen, he immediately resisted and ran. There was a scuffle inside the courtroom, followed by a karol into a hallway where there was another scuffle and then a karol through another set of heavy, wooden doors. When this was all said and done, Mr. Eastman noted blood to his left forearm with some left forearm and wrist pain and swelling as well as right shoulder, elbow and hand pain. He was seen in our ER where x-rays of his right elbow and left forearm were non acute. He was placed on light duty work. 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 He cannot even actively reach for and use his weapon so there is no use of a gun due his right arm pain and weakness. He failed Prednisone. OT dedrickal suggested a shoulder problem as well and they recommended additional imaging and ortho consult prior to proceeding with additional sessions. Luckily his left hand and forearm has improved. On the right he continues with difficulty with any behind the back and overhead movement on the right due to pain and stiffness in that arm and shoulder. He continues with right elbow pain, mostly medially that shoots up and down his arm, especially when he tries to full extend and flex the arm. He is noting numbness/tingling in his right hand that comes and goes with changes in position. His right hand feels weak since this happened and it has been swelling. He will wake with 8/10 on the right if he is sleeping on that side and finds it difficult to sleep for more than a few hours at a time due to pain. With any repetitive use of this arm he notes increased pain and tingling throughout his arm and right hand. No fevers, chills or malaise. No other joint pains or myalgias. No other numbness, tingling or weakness. Ecchymosis better, abrasion is healed, no other skin rashes or lesions. He saw ortho who also felt his shoulder needs addressed in this claim. There are no other associated symptoms. Nothing else makes the symptoms better or worse. Symptoms are described as sudden onset, moderate in nature and persisting. Health Status Allergies: Allergic Reactions (Selected) No known allergies. Medications: (Selected) Prescriptions Prescribed acetaminophen-oxycodone 325 mg-5 mg oral tablet: 1 tab(s), PO, Daily, to last 30 days ok to fill, 30 tab(s), 0 Refill(s) Documented Medications Documented ibuprofen 200 mg oral capsule: 400 mg = 2 cap(s), PO, q4hr, PRN: for pain, 120 cap(s), 0 Refill(s). Past Medical/ Family/ Social History Medical history: No active or resolved past medical history items have been selected or recorded.. Surgical history: Facet joint nerve block ([id number]) on 10/27/2020 at 45 Years. Comments: 10/27/2020 9:10 EDT - Araseli Cabrales BILATERAL LUMBAR MEDIAL BRANCH BLOCK T12,L1,L2,L3 Epidural steroid injection ([id number]) on 09/15/2020 at 45 Years. Comments: 09/15/2020 10:13 EDT - Araseli Cabrales CAUDAL EPIDURAL STEROID INJECTION Stimulator, device ([id number]) on 04/30/2014 at 38 Years. Comments: 09/22/2020 9:08 EDT - Swapna Arana stimulator low back placed 2015 Fusion of L4,L5,S1 fused ([id number]) on 04/30/2007 at 31 Years. Cage ([id number]). Comments: 09/22/2020 9:08 BARTT - Swapna Arana bilateral fused cage. Family history: No family history items have been selected or recorded.. Social history: Social & Psychosocial Habits Alcohol 03/05/2020 Alcohol Use: Current Frequency: 1-2 times per month Employment/School 03/05/2020 Status: Employed Substance Abuse 03/05/2020 Substance use: Current Frequency: Daily Comment: PRESCRIBED FOR DPN - 03/05/2020 11:23 - Regla SIMON, Sam Desouza Tobacco 03/05/2020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 symptoms better or worse. Symptoms are described as sudden onset, moderate in nature and persisting. Health Status Allergies: Allergic Reactions (Selected) No known allergies. Medications: (Selected) Prescriptions Prescribed acetaminophen-oxycodone 325 mg-5 mg oral tablet: 1 tab(s), PO, Daily, to last 30 days ok to fill, 30 tab(s), 0 Refill(s) Documented Medications Documented ibuprofen 200 mg oral capsule: 400 mg = 2 cap(s), PO, q4hr, PRN: for pain, 120 cap(s), 0 Refill(s). Past Medical/ Family/ Social History Medical history: No active or resolved past medical history items have been selected or recorded.. Surgical history: Facet joint nerve block ([id number]) on 10/27/2020 at 45 Years. Comments: 10/27/2020 9:10 Araseli Lord BILATERAL LUMBAR MEDIAL BRANCH BLOCK T12,L1,L2,L3 Epidural steroid injection ([id number]) on 09/15/2020 at 45 Years. Comments: 09/15/2020 10:13 Araseli Lord CAUDAL EPIDURAL STEROID INJECTION Stimulator, device ([id number]) on 04/30/2014 at 38 Years. Comments: 09/22/2020 9:08 JAYLYN - Swapna Arana stimulator low back placed 2014 Fusion of L4,L5,S1 fused ([id number]) on 04/30/2007 at 31 Years. Cage ([id number]). Comments: 09/22/2020 9:08 EDT - YasmeenSwapna bilateral fused cage. Family history: No family history items have been selected or recorded.. Social history: Social & Psychosocial Habits Alcohol 03/05/2020 Alcohol Use: Current Frequency: 1-2 times per month Employment/School 03/05/2020 Status: Employed Substance Abuse 03/05/2020 Substance use: Current Frequency: Daily Comment: PRESCRIBED FOR DPN - 03/05/2020 11:23 - Sam Arauz RN Tobacco 03/05/2020 Smoking tobacco use: Never (less than 100 in l Electronic Cigarette/Vaping 03/05/2020 Electronic Cigarette Use: Never . Problem list: Active Problems (2) Kidney stones Pain management . Physical Examination Vital Signs Vital Signs 11/24/2020 11:21 EDT Temperature Temporal 36.9 DegC Peripheral Pulse Rate 85 bpm Respiratory Rate 14 br/min Systolic Blood Pressure 126 mmHg Diastolic Blood Pressure 88 mmHg SpO2 97 % Oxygen Therapy Room air . Measurements 11/24/2020 11:21 EDT Height 177 cm Weight 117.93 kg Body Mass Index 37.64 kg/m2 . GENERAL: Awake, alert and oriented to person, place and situation. Well nourished, well developed, non toxic, NAD. NECK: No bony TTP (more content not included)... Normal [facility] Recordon 021 Urgent Care Record [facility] ? Urgent Care [address] [place] [address] PATIENT DISCHARGE INSTRUCTIONS Patient Information Name: CARMELITA EASTMAN Age: 45 Years Date of : 1975 Reason For Visit: Medical screening exam; [facility] F/U- RT ELBOW INJURY Arrival Time: 11/24/2020 11:00:39 Primary Care Physician: Misbah Donahue Attending Physician: Irena Weinberg PA-C Comment: Visit Diagnosis: Diagnoses This Visit Abrasion of left forearm (S50.812A) Contusion of left forearm (S50.12XA) Medical screening exam ([id number]) Sprain of right elbow (S53.401A) Strain of right elbow and forearm (S56.911A) If you received any narcotics, sedation, or any other medication that causes drowsiness for the next 24 hours, unless otherwise directed: ? Do not drive a car. ? Do not operate machinery such as power tools, lawn mowers, drills, sewing machines, or stoves ? Avoid alcoholic beverages and drugs for allergies, nerves, or sleep ? Do not make important personal or business decisions or sign any legal documents With: Address: When: Return to this practice Comments: December 07 at 5 p.m. Medication Information: The exam and treatment you received today in the [facility] were for an urgent problem and are not intended as complete care. It is important for you to follow up with a doctor, nurse practitioner, or physician?s customer relations assistant for ongoing care. If your symptoms become worse or you do not improve as expected and you are unable to reach your usual health care provider, you should return to the Emergency Department, we are available 24 hours a day. For those patients who have received Radiology results, the interpretation of your X-ray as given to you by our Urgent Care physician is only a preliminary report. The Radiologist will review your films and if there is a change in the diagnosis you will be notified by phone. Please make sure you have provided a working phone number so we can reach you if necessary. In the event that you had a lab culture while you were a patient in the Urgent Care, you will be notified by phone if there is a need to change your antibiotic. Please make sure you have provided a working phone number so we can reach you if necessary. [facility] has provided you with a complete list of medications post discharge. Please inform your rate reviewer/provider of your visit and for further instruction on these medications. Any specific questions regarding your chronic medications and dosages should be discussed with your primary care physician(s) and/or pharmacist. Medications to Continue That Have Not Changed Other Medications acetaminophen-oxycodone (acetaminophen-oxycodone 325 mg-5 mg oral tablet) 1 tab(s) Oral every day. to last 30 days ok to fill. Refills: 0. ibuprofen (ibuprofen 200 mg oral capsule) 2 cap(s) Oral Every 4 hours as needed for pain. Visit Information Allergies: Substance Reaction Symptoms Type Comments No known allergies Drug Vital Signs: Vitals and Measurements this Visit (last charted value for your 11/24/2020 visit) Vital Signs This Visit Temperature Temporal: 36.9 DegC Peripheral Pulse Rate: 85 bpm Respiratory Rate: 14 br/min Systolic Blood Pressure: 126 mmHg Diastolic Blood Pressure: 88 mmHg SpO2: 97 % Oxygen Therapy: Room air Measurements This Visit Height: 177 cm Weight: 117.93 kg Body Mass Index: 37.64 kg/m2 Problems List: Problem Onset Comments Kidney stones Pain management Sees Dr. Owusu for back and joint pain Patient Education Viruses or Bacteria What?s got you sick? Antibiotics only treat bacterial infections. Viral illnesses cannot be treated with antibiotics. When an antibiotic is not prescribed, ask your healthcare professional for tips on how to relieve symptoms and feel better. Usual Cause Illness Viruses Bacteria Antibiotic Needed Cold/Runny Nose NO Bronchitis/Chest Cold (in otherwise healthy children and adults) NO Whooping Cough Yes Flu NO Strep Throat Yes Sore Throat (except strep) NO Fluid in the middle ear (otitis media with effusion) NO Urinary Tract Infection Yes Antibiotics Aren?t Always the Answer www.cdc.gov/getsmart GET SMART Know When Antibiotics Work U.S. Department of Health and Human Services Centers for Disease Control and Prevention December 2013 [facility] Billing Authorizationson Billing Authorizations [id number]#1.00OTGTI [facility] Provider Orderson 11-22-2020 Provider Orders [id number]#1.00OTGTI [facility] Provider Orders [id number]#1.00OTGTI [facility] Coding Summaryon 11-19-2020 Coding Summary HTMLBase 64 EjhpabytGNk0qXw+PGhlYWQ+P K0XCGJjB73gxJTmtG8NI9hZAB 7SBKYCWMBJHV8CRX4veOC3LAt aD4FoijBn LtsjgECqWF73LFs3WOF6aZmgU LnyuX2umJYiF4s7VxQaEA56dU 23RJowYUCxLrB9DnHcwnnukJF y J9glTrTwjJFeVzv+PHRhYmxlI HdpZHRoPScxMDAlJyBzdHlsZT 0cFj5mSLKaGUGugQbkwNDnWqP j h7rsQLXkNInyWI9goEqnU7Tpg JS4FLZob3c6Zc64xDV+PHRkIH N3zHxoHTety046MjJtm0fmMZW 3 iEWiIQyxQNO9F84ia9G0HSMfH RMsPHK9fVQ9mU5emHxscnrqF7 YizIDzHjX7KLK9cTAweC8ieWw n hfrgdF8hYol+B88VEV7HWRJVR N4URbg4L9TsKhftzJY+PC90YW YyAY55hLEhbYFta6dnlJm9PbK w RCZaMSJ9qXtpQSgpa6EiHCIxK 61rtTLqs9D8CZHpeEekrZWuTu LmbBT0yB9kYGkqhvogv9qtrjj n Hxhzc4zzxg96bW55Z38qQIsyW LHeQPN0FMGqBLBksJirfe6meG 9wIi8+RHocj9ham0gdwGb9ZdS w XGSgfsIikFqiJIO1e4AiMh88W 3BeeKjzi5CmCjc7hx69zLObw3 T8bTX3JAsgZHVmyV8qPQvuEtC 6 LYUxEtOuvW50hPWuSOyrPb7jq XmldDdkIZ9wZRPddzuyBBMrcG 8jVKXztWVdlLvdNL1wLKUbzxz m k338WuVgQHD9ZMFjqUNoS1Wqw A0sOwPsTRHoCFXsY6CtmQLzSK ayS281RYasAuX2JBIqllUhR9I s UXFgnRpkRaJ5u8A3Ra2Su8Lod jivJZT0BPwoUKJ1FuMiKgMjQq K7E8DsIic4LHHleSadTE3rD1I h PAGzhebvprlihWS4VOUjUKGdf T34gHHxSUqrNj0jz1N0x498TK TqHDCtpH61Bt5fqKeeIGLqwFZ U iZ3yxrmqj2nerwelTbZrSONcQ Lz4VKq5XNJmoGcfSlLcNCK3Lb C3PUR6oAUakL4eyYyplzwanK6 w Oyc+H41zqF8eJJM9FWI6bizvI WEyglFzXV19QX79A3LdWuyldL FibGU+NKNushUifQhnVA0hKyZ j d1cdm2YmKXgbN8RlMUUgAFmdS ya9OLStPMS9yAO9gP7rBSWsIX pqe5A5bSF8M5SyqdBzvt4uz0i s FRIzKKtfG08mvJRwx6W1KUYge ES8XTKujEbeIdCzmW69Bnn+PG OeaUeke9HgBejcm7jjd6mvzHg 9 RtTcUXRoesZbgHulZGS1r7OxP i00A51tGKlbJGZnSTQxAHKuHT IrdShkcb2gjC3dRe9+PGNvbCB 3 oBM3oQ1qICVzTkZ6FDyaO686L vPjgGFzScnzq4jjt2mzsOw2Vr DdYYWwnzUhcCqlZMT7r6CsRx2 8 S97wRCgyIFMfPYJnIIOhIMFif Fjnwd8buB6zEt7+RK0cj6pzjq 82qC41eVC+EMFxGDQ5iDybBAh w GFTptV0qTLkwSwC3BHNyHoCnn I66wCEcAWqhQr4trEuokCeiJY 4tCDXmpyysd494ZhPhm7nmYSC w cTDmXPaeNLF9D72fa3C0DMRfK QWpCYO2bDZ0sW6cyVshkrsymW AabKieloRytTmgFFudXXtqB71 6 IHRvcDsnPlBhdGllbnQgTmFtZ Gw7K6WtQvn4YJObdUwyIH1eeN ScHLmtOp6sdBzyvZkgIN8kAHX p akfqv825WvYns9fkCFThtFAxZ SbrVIU0U23dc0P8WANmLEFiDK F0iHN4qI1bqKrajnkvtOOwnLf g ncTnyOueTBkmIDymQ982QMWci ThoBbPnctHrSHXwhMX5FH85ST 41tZNme4G4cEO2E3FaMKBfhei t lloonQK2SINtLCVmfF09Kn6wc LfiYf8tXNCvCRP6FLQtuYAxP8 UwwT3fEqSqLOFpGFDvX6LrzAP t ZNepI824AGyeWxI9URNsthThC 4BrTQDspWfsOaI9r3L1Xu8YO0 J5NY05GB81tIMdg0Q5aIK4O7U h MKQijuluzjodkSC7DRNvQPJar C96Kl1ugKyfLb0kYJYfHVA1DP AcwRWjH2BniG2gVkDtBHVtUFB w F8NqaEAqYKjbL061JZqtEjS5Z UNiluXqR7BzCRDyuEslBkR3x9 A8Xt2WQUk0EZ09GA49eTLbk7C 5 tNK0Y9ZoXHMvafvpxvakqSE9R ZDgSMYnjM68Gv2hgAmxOg6qPG OqQLM8DYYubOMlP4ZqkO6fQxL j BGVlWDSgV1OhpHAfCWrqB015A KdtLmB3EAHgrgRdO1BuKMHzjL xwRaS4v4Q3Sh5JMSAlQR74PFY 5 fMN8SO85LL14G3TgEwxgmWDwm +PHRhYmxlIHdpZHRoPScxMD QiCmRjaOmsTF5fLo8dQLGjNLT v dJjyxJNrFiZbt1acLFMfMSdvF T7cvLfxT4FuoJE3CNBxi2v4Fq 66A24aC6IvpFU+USYehTL4bRO 0 tY5mGlFhXtL1IIuqF871CiFta MPrJvjyp4ndr4gwaRw3ZkK0LY FfkpZmbPdpTZD7k3JcUw64L96 s IHdpZHRoPSIxNSUiIHZhbGlnb j3zzH2qZe2+LQOrkNK0yID8gL 6nHgIzIdX4JJcuI399PhUcpZY v Znxpa5ikx1kqaYj2NkPdIEEkl cGonIyzKTK8r5ViFz90L5YntB slw9VqOvg5it08tSMmi5W1uMX 9 F9HeRFXpxuaolLYdgWzwGZ6lX OJgjzrbSPYorP9yWXTjU0t7Nz EjMcR0HEvhG2VrwmO6IYGaiTO g IVtfIKY1L52yq2P2RPRdYCUvA AL3lRO7fO9isQfawfcigCRqdG divzTlkTfmFGfkSZxvC752CTU v mPefUQWtsL0sKRJrsSHmfOwmS O4yQSEekqalHmaZFQQNCQNISL MMGMxqHUyVPZ01Z8NhUqs4JEE z jNgjSK6qhYYuKLsjGv2okNhda JwoUP0iDTCzvcqgQJQprR5oDY NucPNnyKmcXO7zHQQexlwyl99 0 FwJxQON2KVOaqJZmT3GlvC2sA fSbGKLfHBMsV3AnsEWyBGuvN9 35NIpiWgU9ZWDukgSaU4XwACY s uNafDfK2e2T5Vm8nKQ3fPg5mW Jj9JD56MS48qRJne7C1aDG5D0 IqJMGfefuyldcdjZO1VHByOUZ w hQ30rPMtMGjcJw1mu2S0e442E NFdNYFunD96Kw8fpPrxPOEawD DLgW3ttxely1jqqhqcXmQeLQB w SYj7ASi8FYDlvTymSfPgEOI8K hA3MAG4gGUbeM1fdHxlwnxbtC 9wOyc+BVPhSGFrhxB7O2ByJjh 0 ABHwuMkiWH5vyLQdZZigPv1wf FoeqBbfRH3nKIHxbbivUKPatR 7dOLItiREgkYjrDE2qGOOblto m i026ZnJtVGN1EASvdFSlS6Idb A9mVgEaZHSfAMAlN1AszROqYC hdQ106AKsdPaP4FKAvekUyU8F s CGZzgKbbGzD8j5P1Do8AZHlRK C84WQ54iIZgj5N3nAP3G5YnBZ KhysmqcowekLU5NBTtSMUszN9 7 cSDfENkqFi1vb4T2l186FFJwI UOriJ47El1zyGtkXCAzzGAOhQ 1exzcqy5ewysjaUwPfOLKtLJg 0 MPx3QZYctJdgRwHlULL0EdF9U DC1pEPrdX9fbVqtwxtpsJ7gAr c+T2V9S4QqAuqhyLP+BF97HCC s YY63pSUsrXApx5ktdLb2VhIcQ HPnSWE4tZhlKKjnr7IoHVOdJ4 8nlBYdt6M1MFEpaIwrpAZjFdB l lEX7iQ3dGRicwuris1gcvkktZ zijo6llfw94gF28N84xDDocBV QjROUrLSNxTOUcmCpult1vpE1 w Ii8+NFSzmTF8iLO4tP3uWbKlD qB9FUorH228DqRhkHVtDhmht5 oqg4kugEw6JtLqSORrlqVwtIw u FRE8k3HfCl86U16wLPxjORZvQ TIhSDOcLPTypLzuzv5vgO2cMt 8+CY3qt0sivh19nW76vMV+PHR k JCE1eDxoQQudRDFexN6gMKyfI aR0SWAzOoRobW60cXZnQUhcKq 2ofIckyLhiVZ3cPVCxbslkd05 0 UnRdg6hqQYJclEMqKQmbTQX0S 77tu9L0AKLrOUPeYDZ1nGS6oK 1hbGlnbjogbGVmdDsgdmVydGl j YDxcNNhhW973LETtoGspXnVsu TQbG9lcdoROQN6dDgwruIN+PH JfJOF5gIogKTtkBTGrvF3eWHU p M2v4OcXaAnH4LKyiB4OolqW8O OTxpDIuMUUwjOQYaG5yljbdk8 mljsvrKqOlTNUeEFr3HJt8RHI s xIsjNnCjUML8AfJ9KVT9hLWeb K4gaKgelsyxsJ7bWth+RklOOj wvdGQ+BITvJJA9cQxgFSqaNJL k jP0yDZVtE1c8UxEtPoW9IOgfS 6XudnV8OOXxtNUyFFMwkJSXjS 7qreotw5aavlatHrQgNTNiIOz 0 JTq0LPKcfMmjFcTlDYK5JpR3X KW4bLOfxM1aqXodymfylX1nAp c+TVJOOjwvdGQ+FAPoPRO5vQl l EYjzYHWqnX0zTAJfL6b8RtLoQ zM2ISnxO1NsldE0FLPktSBsCU PhaSSAxV3sdnbwn3vmzmovFxL w NOFtGCl9SFf4BYBrkBbgAbBaF CF4VoB7KEG4iKBcpH8fwZnzdb uyxJ9bNtl+ELW9ZTF0FP93TO4 8 D8PnDpqciXOlrGG+PHRhYmxlI HdpZHRoPScxMDAlJyBzdHlsZT 9fDp8yNSQcCAXxwIqctUIxPsC j b2x (more content not included)... [facility] Discharge Instructionson Discharge Instructions [id number] FF [facility] Provider Orderson 11-18-2020 Provider Orders [id number]#1.00OTGTI FF [facility] ED Clinical Summaryon 2020 ED Clinical Summary [facility] ? Urgent Care [address] [place] [address] [id number] Clinical Summary PERSON INFORMATION Name: CARMELITA EASTMAN Age: 45 Years Sex: MALE : 1975 MRN: Acct#: Visit Reason: Medical screening exam; [facility] F/U- RIGHT ELBOW INJURY Arrival: 11/17/2020 10:36:33 Discharge: 11/17/2020 11:55:00 LOS: 000 01:19 Check In: 11/17/2020 10:36:33 Checkout: 11/17/2020 11:55:00 Address: [address] [place] [address] PCP: Misbah Donahue PROVIDER INFORMATION Provider Role Assigned Unassigned Irena Weinberg PA-C ED PA 11/17/2020 10:46:54 Azul [place] ED Nurse 11/17/2020 10:47:12 VITALS INFORMATION Vital Sign Triage Latest Temperature Tympanic Temperature Temporal Artery Pulse Rate O2 Sat Respiratory Rate Blood Pressure /78 mmHg /78 mmHg MEDICAL INFORMATION Medications Given: Allergy Information: No known allergies PHYSICIAN DOCUMENTATION DISCHARGE INFORMATION: Discharge Disposition: Home Discharge Location: Home PATIENT EDUCATION INFORMATION Instructions: Follow-Up: With: Address: When: Return to this practice Comments: SunNovember 24 at 10:30 a.m. DIAGNOSIS: Abrasion of left forearm; Contusion of left forearm; Sprain of right elbow; Strain of right elbow and forearm Patient Understands: Yes - Patient/family/caregiver verbalizes understanding of instructions given Comment: [facility] ED Patient Summaryon 021 ED Patient Summary [facility] ? Urgent Care [address] [place] [id number] PATIENT DISCHARGE INSTRUCTIONS Patient Information Name: CARMELITA EASTMAN Age: 45 Years Date of : 1975 [facility]: [id number] Reason For Visit: Medical screening exam; [facility] F/U- RIGHT ELBOW INJURY Arrival Time: 11/17/2020 10:36:33 Primary Care Physician: Misbah Donahue Attending Physician: Irena Weinberg PA-C Comment: Patient Education With: Address: When: Return to this practice Comments: SunNovember 24 at 10:30 a.m. Medication Information: The exam and treatment you received today in the [facility] Emergency Department were for an urgent problem and are not intended as complete care. It is important for you to follow up with a doctor, nurse practitioner, or physician?s customer relations assistant for ongoing care. If your symptoms become worse or you do not improve as expected and you are unable to reach your usual health care provider, you should return to the Emergency Department, we are available 24 hours a day. For those patients who have received Radiology results, the interpretation of your X-ray as given to you by our Emergency Department physician is only a preliminary report. The Radiologist will review your films and if there is a change in the diagnosis you will be notified by phone. Please make sure you have provided a working phone number so we can reach you if necessary. In the event that you had a lab culture while you were a patient in the Emergency Department, you will be notified by phone if there is a need to change your antibiotic. Please make sure you have provided a working phone number so we can reach you if necessary. [facility] Emergency Department has provided you with a complete list of medications post discharge. Please inform your rate reviewer/provider of your visit and for further instruction on these medications. Any specific questions regarding your chronic medications and dosages should be discussed with your primary care physician(s) and/or pharmacist. New Medications [id number], [address] [place], [place] [phone], [phone] predniSONE (predniSONE 20 mg oral tablet) 2 tab(s) Oral every day for 5 Days. [id number] DOI 11/12/20. Refills: 0. Medications to Continue That Have Not Changed Other Medications acetaminophen-oxycodone (acetaminophen-oxycodone 325 mg-5 mg oral tablet) 1 tab(s) Oral every day. to last 30 days ok to fill. Refills: 0. ibuprofen (ibuprofen 200 mg oral capsule) 2 cap(s) Oral Every 4 hours as needed for pain. Visit Information Visit Diagnosis: Diagnoses This Visit Abrasion of left forearm (S50.812A) Contusion of left forearm (S50.12XA) Medical screening exam ([id number]) Sprain of right elbow (S53.401A) Strain of right elbow and forearm (S56.911A) If you received any narcotics, sedation, or any other medication that causes drowsiness for the next 24 hours, unless otherwise directed: ? Do not drive a car. ? Do not operate machinery such as power tools, lawn mowers, drills, sewing machines, or stoves ? Avoid alcoholic beverages and drugs for allergies, nerves, or sleep ? Do not make important personal or business decisions or sign any legal documents Reason for Visit: here for [facility] followup Allergies: Substance Reaction Symptoms Type Comments No known allergies Drug Vital Signs: Vitals and Measurements this Visit (last charted value for your 11/17/2020 visit) Vital Signs This Visit Temperature Oral: 36.7 DegC Peripheral Pulse Rate: 72 bpm Respiratory Rate: 16 br/min Systolic Blood Pressure: 126 mmHg Diastolic Blood Pressure: 78 mmHg Measurements This Visit Height: 177 cm Weight: 117.93 kg Body Mass Index: 37.64 kg/m2 Problems List: Problem Onset Comments Kidney stones Pain management Sees Dr. Owusu for back and joint pain Major Tests and Procedures: The following procedures and tests were performed during your ED visit. Laboratory Radiology Cardiology Viruses or Bacteria What?s got you sick? Antibiotics only treat bacterial infections. Viral illnesses cannot be treated with antibiotics. When an antibiotic is not prescribed, ask your healthcare professional for tips on how to relieve symptoms and feel better. Usual Cause Illness Viruses Bacteria Antibiotic Needed Cold/Runny Nose NO Bronchitis/Chest Cold (in otherwise healthy children and adults) NO Whooping Cough Yes Flu NO Strep Throat Yes Sore Throat (except strep) NO Fluid in the middle ear (otitis media with effusion) NO Urinary Tract Infection Yes Antibiotics Aren?t Always the Answer www.cdc.gov/getsmart GET SMART Know When Antibiotics Work U.S. Department of Health and Human Services Centers for Disease Control and Prevention December 2013 [facility] Urgent Care Note- Provideron 11-17-2020 Urgent Care Note- Provider Patient: CARMELITA EASTMAN Age: 45 years Sex: MALE : 1975 Associated Diagnoses: Strain of right elbow and forearm; Sprain of right elbow; Abrasion of left forearm; Contusion of left forearm Author: Irena Weinberg PA-C History of Present Illness OCCUPATIONAL HEALTH FOLLOW-UP Date of injury: 11/12/20 Claim #: [id number] Employer: [employer] Mechanism of Injury: Altercation between self and someone resisting arrest Diagnosis: Contusion left forearm, Sprain right elbow, Strain right arm 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 On 11/[address] the cloud systems administrator ordered an immediate arrest on an individual there. When he was attempting to handcuff the gentlemen, he immediately resisted and ran. There was a scuffle inside the courtroom, followed by a karol into a hallway where there was a scuffle and then a karol through another set of heavy, wooden doors. When this was all said and done, Mr. Eastman noted blood to his left forearm with some left forearm and wrist pain and swelling as well as right shoulder, elbow and hand pain. He was seen in our ER where x-rays of his right elbow and left forearm were non acute. He was placed on light duty work. He states he has been basically doing desk work, but is still required to carry his gun and accompany suspects in the courtroom. Thankfully there have been no further incidents similar to the one above. He presents today stating his left hand and forearm pain and swelling is slowly improving. The abrasion is healing and the ecchymosis to his left forearm is fading. He continues with difficulty on the right, however. He has difficulty with any behind the back and overhead movement on the right due to pain and stiffness. He continues with right elbow pain, mostly medially that shoots up and down his arm, especially when he tries to full extend the arm. He is noting numbness/tingling in his right hand that comes and goes with changes in position. His right hand feels weak since this happened. No fevers, chills or malaise. No other joint pains or myalgias. No other numbness, tingling or weakness. Ecchymosis fading, abrasion healing, no other skin rashes or lesions. There are no other associated symptoms. Nothing else makes the symptoms better or worse. Symptoms are described as sudden onset, moderate in nature and persisting. Health Status Allergies: Allergic Reactions (Selected) No known allergies. Medications: (Selected) Prescriptions Prescribed acetaminophen-oxycodone 325 mg-5 mg oral tablet: 1 tab(s), PO, Daily, to last 30 days ok to fill, 30 tab(s), 0 Refill(s) Documented Medications Documented ibuprofen 200 mg oral capsule: 400 mg = 2 cap(s), PO, q4hr, PRN: for pain, 120 cap(s), 0 Refill(s). Past Medical/ Family/ Social History Medical history: No active or resolved past medical history items have been selected or recorded.. Surgical history: Facet joint nerve block ([id number]) on 10/27/2020 at 45 Years. Comments: 10/27/2020 9:10 Araseli Lord BILATERAL LUMBAR MEDIAL BRANCH BLOCK T12,L1,L2,L3 Epidural steroid injection ([id number]) on 09/15/2020 at 45 Years. Comments: 09/15/2020 10:13 Araseli Lord CAUDAL EPIDURAL STEROID INJECTION Stimulator, device ([id number]) on 04/30/2014 at 38 Years. Comments: 09/22/2020 9:08 Swapna Goodwin stimulator low back placed 2015 Fusion of L4,L5,S1 fused ([id number]) on 04/30/2007 at 31 Years. Cage ([id number]). Comments: 09/22/2020 9:08 Swapna Goodwin bilateral fused cage. Family history: No family history items have been selected or recorded.. Social history: Social & Psychosocial Habits Alcohol 03/05/2020 Alcohol Use: Current Frequency: 1-2 times per month Employment/School 03/05/2020 Status: Employed Substance Abuse 03/05/2020 Substance use: Current Frequency: Daily Comment: PRESCRIBED FOR DPN - 03/05/2020 11:23 - Regla SIMON, Sam Desouza Tobacco 03/05/2020 Smoking tobacco use: Never (less than 100 in l Electronic Cigarette/Vaping 03/05/2020 Electronic Cigarette Use: Never . Problem list: Active Problems (1) Pain management . Physical Examination Vital Signs Vital Signs 11/17/2020 10:45 EDT Temperature Oral 36.7 DegC Peripheral Pulse Rate 72 bpm Respiratory Rate 16 br/min Systolic Blood Pressure 126 mmHg Diastolic Blood Pressure 78 mmHg . GENERAL: Awake, alert and oriented to person, place and situation. Well nourished, well developed, non toxic, NAD. NECK: No bony TTP, normal range of motion, no meningismus, trachea is midline. No anterior or posterior lymphadenopathy. EXTREMITIES: Mild TTP soft tissue around the right shoulder, with difficulty with abduction and adduction past 100 degrees, limited behind the back movement, he remains very tender medial right elbow with difficulty with full extension at the elbow without pain, fair flexion at th (more content not included)... Normal [facility] [address] Urgent Care Record [facility] ? Urgent Care [address] [place] [address] PATIENT DISCHARGE INSTRUCTIONS Patient Information Name: CARMELITA EASTMAN Age: 45 Years Date of : 1975 Reason For Visit: Medical screening exam; [facility] F/U- RIGHT ELBOW INJURY Arrival Time: 11/17/2020 10:36:33 Primary Care Physician: Misbah Donahue Attending Physician: Irena Weinberg PA-C Comment: Visit Diagnosis: Diagnoses This Visit Abrasion of left forearm (S50.812A) Contusion of left forearm (S50.12XA) Medical screening exam ([id number]) Sprain of right elbow (S53.401A) Strain of right elbow and forearm (S56.911A) If you received any narcotics, sedation, or any other medication that causes drowsiness for the next 24 hours, unless otherwise directed: ? Do not drive a car. ? Do not operate machinery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 YjWDFxwZ75Kp6jwAqvAFDwmIF U rV5eszvjz3icyulhMwPaCPNxV Ax5QJl3JNKrlOhxJpYzLLY2Fx Y2FAZ9mTFqiV5bjNbqtrpbsM5 w Oyc+D14spM8tAJA4BLV1qznsY CDhazIlGZ29LE88V3ObHxfioZ FibGU+TZFkvgJpzJipJY4aMsM j j6krj8AjNQdcY9KfOKNfTVjuZ ze9TZXbGXU8iYD2nO3hAXDeIX cfw0R9nYY6P1OsbwKqxr6ms0e s QSGkVFlkH73byRZmu8P6TKGtf YR8CCBueDngPwSnmQ04Dcl+PG LyyTiiv3KiTejsn7spg4xokBu 9 VnDbGQNbweUduAynBEH5j0XsI u13S44nXCoqKAKbLBVwUSClOT VdwAzagr1cdO9sSa5+PGNvbCB 3 nSD3uV6oBEIiCyU2SIrhL877T hAomYLvBklcf3mds3rmnNo8Ik VdEWAytqKogUnoCIS7h5VzOo6 8 A10eWFinWHOzSOJoXNFcLUHyn Brevv0tqC0fFz7+HG4ap1czji 40hX47hXT+ECJiBTR9vRkhXSd w RNHaiQ2uQItnRlN5WWRvSlAjp P83uPMmYTpxQi9pvIbevZogFC 1gOCDqbknas972UpHwc1czXKT w pBIkRGslXDG8Y34iw1S1ZBMdT MGaFSU8hOE3zI8ohSrkjqefoB YwpTsuafIhgTmyDAcrGAqoR10 6 IHRvcDsnPlBhdGllbnQgTmFtZ Xm6A0BlScc0HNZpmHlcVZ9txO PsTCooSc2wpJakiTlgJA9cOMJ p gwotw233XgVxm8zyTPDleBLmD FmkWJW0P22tg8W9LGUxCRDfGL J0hEN1cM2eyIkomcsibJJsaNe g snTrwRrtRMwoLMxtK247YHMbn XriPuHbhaLlDCAtmDY4YG21MR 30fAHpa3K9jCF8O4XfUMApvba t nthflXX5RPWbOHQuvO29Ix4ak LrhOx7hFMKhXXP2FOCcdFSuD3 KjfL2mBnGoPPOdGFDfZ4ThiTL t ITpiI607UUlaRmV2DWVzcyWiX 3SxVBDmySkfJwD2l2D8Oj1CB4 X5YO37GK78hVNdq1G4gND4P7R h GCPtfdhspzrtlNG1PEJhHYPos O17Xh0htZuiWt5zZLSwSFK7BD TllRMgV3YjjQ7xClYyTQWxRYP w E1DynPFbKIqmF604ZSyrKtE9R DWcxhEzL5IxVBLjfMqmCqB3t5 P7Xl1AYZy5XC54TW18pNHux4N 5 oYW5X9IcEGMmhgecpqokgSJ1N SIdWWVicT69Wx5nwQxuGo0uIF VoSXY6NCOlkQSmF3RhfI7oLwQ j VDOiIMFfF7VyoPXvQBdhG920M FzrLbZ9CGOlhoIcW9KcRKFamZ mbJhJ3m7T1Bu9XFTRaEL10HCY 5 hVR8KX38AF18H5RgJnjyhJHpl +PHRhYmxlIHdpZHRoPScxMD ExJdDwlVxnLT9rEh0nPNFpNYI v wFqodVEwGiXjc6wkUVCwROpiA B7hxHujA6OujBA8HFEjg8v5Ka 29G69oP0KhoUN+RJZllAA3oIW 0 xR4eXlQeMiN3SDdbZ071RcOcu LRoLqbpt4hni2omgLu1SiI0HW EadjOnjEjyDTY6a4KgMd55I21 s IHdpZHRoPSIxNSUiIHZhbGlnb e9gxW6oZj5+IDWqtEP7sAA5lH 0zSsKnBlY6EDjzX090LhSwmER v Jrsqi3chy8noeUq1ZeQrOERpy gIxpKyfHIK2f4GlLo38S7HbkZ yuc0McAxv3ak97uBRgk6J8gRQ 9 N8QwIRMdkwdjwNExpCjsJF1tH FFxrxorHLPcuU0bJUDxY9t7Jz YdEbW6GRffD9WryaM8JPFspVH g KMwnJUK8M69ne1G2VOFcHJTiU GP8tTU3kX8piRtjtcbsfIIetY lniuGhoAmfUEwfGTxgD991DDL v cDcjLXIfuV3pBCEeoVYtuBbhG D5jMKEbirnzPtzXMZYWCGCBJE CWJRplXOjLFQ30C3HaLol3YJN z hOlqXI4jwBYjGBvkFq0ucVmki YgpRQ9kLSIzhbsdRXPazL1wQK CiaYKqeEejLO2xHTJmemlwc21 0 UnMaAAH3TZHfuENfO9FbfW8yM sKnOAShMAWhA1YelFXvYQcmF5 88TVliRnQ3QKNmnkGnY9OfQEI s fTraMwA7s5M3Rd3oAB9yIh2pD Lx5RL52ZE09oIWpa8A0kFS2Y8 LkSPNmsfgrulrrqNL2HKSuKUP w xO94nIVdZWspRo9uz1C9y578K FAyDAHhoH60Gt2zbQkmXQSrdV OHvU9imsejp6uwzosgQnAlYDH w XKp8GMq9VTUzaIbmQgGdOFD7B mC3KBH4wVTtrM7mmInfradsnM 9wOyc+VVLkRMDquyU7W2UwSps 0 WDEfsTqhLL6ogLBnRGwpCg7xo EthwHrpUM0cTSYtmtouCQSlhO 0oQVHjnFLkvEmcZV0eCOHctul m p640OnQjEZW4MLYmuXHhA3Yqh V1tBtCmDRIhJAJxL3TxbKPoKC ezT162CGvrGpW3YUHashOvW5E s HZZanTmwBoK9a9M5Am9VFZjGR Z57PO62mDCee7D9qNW2B5BeUH VvqspoaysmsBW9VLTjLYLnyB3 7 dBDaNXmoYu9vq8U7y827HPHwO YGemW97Mu3tlPcdYTHrmRNKgI 6guvlpa1qkpjrtNjNlPKOwVSj 0 VEs8XSAckQaoSaXlEZR3NfU3Q NN8xLTcwF4mbMmmqbztiS5uEy c+UFH6JKF8ivqqbqc0O4NxBkn v dHI+BP75XPVxPE08hVYdaEWjo 3amlSt7UbRrLKTcRMF2uNiqPW wiy3DeRXIqX84frJTaj4O2SRC v nCsswQQvHeEfpTD8yP7jAUurb qzda7pgryizOcnsj8ftfe95pD 18X47dCNzuXEXpZDDwXBPsUGC h oYfakp4mqE7nCv4+VYYyyQR0l TY6eM9yDiGcUcM4KHfdC811Gx TsdDFvHvgfz9enr9mmpKr7UaI w ZYZnjkYusRwuGIY9e6BnId81W 29sIHdpZHRoPSIyMCUiIHZhbG vfbn3ycA3lKx5+KM4ql1vklx7 1 cW81lRH+JWKiGUC1fHtyJLzwY VRxmF2sVNidPtL5VCUsNvBcaH 14rFMrKJewHu8rjKhiuAxoDE7 w WKCofqaxf862LhFzj7kqSMOdo HVcFHsdMFG3Z91jx8U4HHZySV IhBHY2xJR0cJ0xlAcumqdfqMI m jTbjoaKvsGvvIQxaIPgyK088D SUtsEiaSoFsuAJkF8wvteVNVL 1lOjwvdGQ+CECnEOA6iCppRDf w LIWkuZ2lNSTgV8w3ZpNbZhO6U RgwO7EkezH5MWNwtQLdHLVbbV SPdR4ymuvsy1cwlygvSyHvCXZ w LVv6RVg4CYBllWvtCxMgUAH0I qG0TKJ4jGJpiA1plRqlkwwxzG 9wOyc+RklOOjwvdGQ+PHRkIHN 0 nCoyCMfzIUNirI2bVBHbR3h7N fFaOgP9TWzrL9KqdfP1DZEkxO ShHNVmuMOVaK5oyauzc7xrndf g YlRbUQYwGIh6FQc6BARyyCdmZ lFwAJW3TqV3IES2xAGreX1giJ umnmoirD5aGll+TVJOOjwvdGQ + AJYeRSH9oVrsJMmvJIYifP6hH YAtN1p5YuVyQpJ9REcvX0Dnnr Y6FUOluVDnATEgzDJXmF1nsxo j s3scgcrrYqEuYPGyUFu4BJu0D NKufCiuKhJsXRO3ZyG1NNB2wD LsvQ1hwTorinjkhK0aGbq+UGF 5 NXY4KH64VB70S1CcEkenzUIou +PHRhYmxlIHdpZHRoPScxMD SiEcSnbCwgFI4jSq2rDHZjDDD v bGx (more content not included)... [facility] Consent Formson 10-28-2020 Consent Forms [id number] FF [facility] Inpatient Patient Summaryon 10-27-2020 Inpatient Patient Summary [place] [id number] Patient Discharge Instructions Name: JUAN JOSE CARMELITASaúl ESTRADA : 1975 MRN: [id number] Patient [address]: [address] [place] [id number] Primary Care Provider: Name: Misabh Donahue After you are discharged if you find you have any questions, please, call [phone] ext [phone] to speak to a nurse. Discharge Diagnosis: Chronic back pain; Lumbar spondylosis Prescription Information: If you have been given a prescription for narcotics, seek immediate medical attention if you have any difficulty breathing or any sudden status changes such as confusion and sleepiness. If you or anyone you know is experiencing suicidal thoughts, mental health, alcohol and/or drug addiction problems; contact the [facility] 20/11 Crisis Hotline -Text 4HOPE to 358642. If you received any narcotics, sedation, or any other medication that causes drowsiness for the next 24 hours, unless otherwise directed: ? Do not drive a car. ? Do not operate machinery such as power tools, lawn mowers, drills, sewing machines, or stoves ? Avoid alcoholic beverages and drugs for allergies, nerves, or sleep ? Do not make important personal or business decisions or sign any legal documents [facility] would like to thank you for allowing us to assist you with your healthcare needs. The following includes patient education materials and information regarding your injury/illness. CARMELITA EASTMAN has been given the following list of follow-up instructions, prescriptions, and patient education materials: Follow-up Instructions Medications During the course of your visit, your medication list was updated with the most current information. The details of those changes are reflected below: Medications to Continue That Have Not Changed Other Medications acetaminophen-oxycodone (acetaminophen-oxycodone 325 mg-5 mg oral tablet) 1 tab(s) Oral every day. to last 30 days ok to fill. Refills: 0. ibuprofen (ibuprofen 200 mg oral capsule) 2 cap(s) Oral Every 4 hours as needed for pain. It is important to always keep an active list of medications available so that you can share with other providers and manage your medications appropriately. As an additional courtesy, we are also providing you with your final active medications list that you can keep with you. acetaminophen-oxycodone (acetaminophen-oxycodone 325 mg-5 mg oral tablet) 1 tab(s) Oral every day. to last 30 days ok to fill. Refills: 0., oarrs reviewed 10/22/2020 ibuprofen (ibuprofen 200 mg oral capsule) 2 cap(s) Oral Every 4 hours as needed for pain. Take only the medications listed above. Contact your doctor prior to taking any medications not on this list. Diet & Activity Patient Activity Level: Patient Diet: Patient Activity Restrictions: Comment: Patient education materials, if any, will display below Viruses or Bacteria What?s got you sick? Antibiotics only treat bacterial infections. Viral illnesses cannot be treated with antibiotics. When an antibiotic is not prescribed, ask your healthcare professional for tips on how to relieve symptoms and feel better. Usual Cause Illness Viruses Bacteria Antibiotic Needed Cold/Runny Nose NO Bronchitis/Chest Cold (in otherwise healthy children and adults) NO Whooping Cough Yes Flu NO Strep Throat Yes Sore Throat (except strep) NO Fluid in the middle ear (otitis media with effusion) NO Urinary Tract Infection Yes Antibiotics Aren?t Always the Answer www.cdc.gov/getsmart GET SMART Know When Antibiotics Work U.S[place] Department of Health and Human Services Centers for Disease Control and Prevention December 2013 [facility] MAGR Intraoperative Recordon 10-27-2020 MAGR Intraoperative Record MAGR Intra-Op Record Summary Primary Physician: Juan Carlos Owusu MD Finalized Date/Time: 10/27/20 10:52:14 Pt. Name: CARMELITA EASTMAN /Sex: 1975 MALE Med Rec #: [id number] Physician: Juan Carlos Owusu MD Financial #: [id number] Pt. Type: D Room/Bed: / Admit/Disch: 10/27/20 09:18:00 - Institution: Case Times MAGR Entry 1 Patient In Room Time 10/27/20 10:44:00 Out Room Time 10/27/20 10:53:00 Anesthesia Start Time 10/27/20 10:48:00 Stop Time 10/27/20 10:51:00 Surgery Start Time 10/27/20 10:48:00 Stop Time 10/27/20 10:51:00 Last Modified By: Halie Chavez RN 10/27/20 10:52:06 Case Attendance MAGR Entry 1 Entry 2 Entry 3 Case Attendee Juan Carlos Owusu MD, RN, Sulma Lopez Role Performed Surgeon - Primary Ward Nurse Reverse Unit Operator Fisherman Time In 10/27/20 10:44:00 10/27/20 10:44:00 10/27/20 10:44:00 Time Out 10/27/20 10:53:00 10/27/20 10:53:00 10/27/20 10:53:00 Procedure Medial Branch Medial Branch Medial Branch Block(Bilateral) Block(Bilateral) Block(Bilateral) Last Modified By: Scott SIMON, Halie Chavez RN, Halie Chavez RN, Halie Bains 10/27/20 10:52:07 10/27/20 10:52:07 10/27/20 10:52:07 Entry 4 Entry 5 Entry 6 Case Attendee Araseli Cabrales RN, Tiffany Cline CST Role Performed RN Ward Nurse Scrub Personnel Time In 10/27/20 10:44:00 10/27/20 10:44:00 10/27/20 10:44:00 Time Out 10/27/20 10:53:00 10/27/20 10:53:00 10/27/20 10:53:00 Procedure Medial Branch Medial Branch Medial Branch Block(Bilateral) Block(Bilateral) Block(Bilateral) Last Modified By: Scott SIMON, Halie Chavez RN, Halie Kapoor RN 10/27/20 10:52:07 10/27/20 10:52:07 10/27/20 10:52:07 General Comments: Addie Madden NP observing from the office Surgical Procedures MAGR Pre-Care Text: A.20 Verifies operative procedure, surgical site, and laterality Im.150 Develops individualized plan of care Entry 1 Procedure Medial Branch Block Primary Procedure Yes Primary Surgeon Juan Carlos Owusu MD Modifiers Bilateral Surgeon Comment Bilateral Lumbar Medial Start 10/27/20 10:48:00 Branch Block. T12 L1 and L2 L3 Stop 10/27/20 10:51:00 Anesthesia Type Local Surgical Service Pain Management Wound Class Clean Technique Details Closure Technique N/A Entire procedure No was performed via laparoscope or robotic assistance Last Modified By: Halie Chavez RN 10/27/20 10:52:08 Post-Care Text: O.730 The patient's care is consistent with the individualized perioperative plan of care General Case Data MAGR Pre-Care Text: A.350.1 Classifies surgical wound Entry 1 Case Information OR MAGR OR 02 Case Level None Wound Class Clean Specialty Pain Management ASA Class N/A Diagnosis Preop Diagnosis low back pain Postop Same As Preop Yes Postop Diagnosis low back pain Blunt or No Is the procedure No penetrating injury considered occured prior to Emergent/Urgent? the start of the procedure: Last Modified By: Halie Chavez RN 10/27/20 10:47:31 Post-Care Text: O.760 Patient receives consistent and comparable care regardless of the setting Time Out MAGR Entry 1 Time out date/time 10/27/20 10:46:00 All team members Yes have introduced themselves by name and role Surgeon, Yes Surgeon reviews Yes anesthesia, nurse critical or confirm patient, unexpected steps, site, procedure operative duration, anticipated blood loss Anesthesia team No Nursing team Yes reviews any reviews sterility patient-specific (including concerns indicator results) and equipment issues/concerns Antibiotic Antibiotic N/A prophylaxis given within the last 60 minutes Is essential Yes imaging displayed? Last Modified By: Halie Chavez RN 10/27/20 10:47:46 Patient Positioning MAGR Pre-Care Text: A.280 Identifies baseline musculoskeletal status Im.40 Positions the patient Im.80 Applies safety devices Entry 1 Procedure Medial Branch Body Position Prone Block(Bilateral) Left Arm Position Resting at Side Right Arm Position Resting at Side Left Leg Position Extended Right Leg Position Extended Feet Uncrossed? Yes Press Points Checked Yes Positioning Device Pillow, Safety Strap Outcome Met (O.80) Yes Last Modified By: Halie Chavez RN 10/27/20 10:47:59 Post-Care Text: E.290 Evaluates musculoskeletal status O.80 Patient is free from signs and symptoms of injury related to positioning Skin Prep MAGR Pre-Care Text: A.30 Verifies allergies Im.270 Performs skin preparation Im.270.1 Implements protective measures to prevent skin and tissue injury due to chemical sources Entry 1 Skin Prep Syntegrity Prep Agents (Im.270) Povidone-Iodine Prep By Tiffany Michel SENIOR SOFTWARE QA ANALYST Prep Area (Im.270) Back Prep Area Details Bilateral Skin Prep Agent Dry Yes Without Pooling Hair Removal Syntegrity Hair Removal Methods No hair removal performed Outcome Met ( (more content not included)... [facility]2020 MAGR Preoperative Record MAGR Pre-Op Record Summary Primary Physician: Juan Carlos Owusu MD Finalized Date/Time: 10/27/20 12:49:37 Pt. Name: CARMELITA EASTMAN/Sex: 1975 MALE Med Rec #: [id number] Physician: Juan Carlos Owusu MD Financial #: [id number] Pt. Type: D Room/Bed: / Admit/Disch: 10/27/20 09:18:00 - 10/27/20 10:59:00 Institution: Pre-Op Case Times MAGR Pre-Care Text: Patient will be optimally prepared for surgery. Patient is free from s/s of injury. Provide information to patient/family related to plan of care. Verify patient allergies. Confirm identity and verify consent before the operative or invasive procedure. Entry 1 Patient Arrival Time 10/27/20 10:10:00 Preop Departure 10/27/20 10:40:00 Last Modified By: Marissa Salazar RN 10/27/20 12:49:35 Post-Care Text: Patient is prepared mentally and physically and is ready for surgery. The patient remains free from s/s of injury. Patient/family express understanding of plan of care and participate in decisions affecting his or her perioperrative plan of care. Allergies documented appropriately. Patient identifiers and consent correct. General Comments: Pt arrives per amb. Pt denies any CP, SOB, Hx of S/S of flu, or sleep apnea. Disch instructions reviewed with pt, verbalized understanding. Finalized By: Marissa Salazar RN Document Signatures Signed By: Marissa Salazar RN 10/27/20 12:49 Normal [facility] Operative Report - Surgeon/P shagufta 10-27-2020 Operative Report - Surgeon/Physician Patient: CARMELITA EASTMAN Age: 45 years Sex: MALE : 1975 Associated Diagnoses: None Author: Juan Carlos Owusu MD Lumbar medial branch block Preoperative Diagnosis: Lumbar spondylosis, lumbago Postoperative Diagnosis: Same Procedure Performed: Diagnostic Lumbar Medial Branch Nerve Block bilateral: T12, L 1and L 2, L 3 Surgeon: Dr. Owusu Anesthesia: local Estimated Blood Loss: 1 ml Complications: None Description of procedure: Risks, benefits, and alternatives were reviewed with the patient. All questions were answered appropriately. Subsequent to obtaining consent, the patient was taken to the operative room. Time out was called. The operative site and procedure were confirmed with the patient. The patient was then placed in a prone position and Betadine was applied to the lumbar spine and sterile drapes were placed. Under fluoroscopic guidance, a 22 gauge spinal needle was advanced toward the pedicle and the base of the lumbar transverse process. It was directed in an anterior and medial direction, utilizing the Francisco dog? oblique fluoro view. Upon confirmation of needle tip placement, and upon negative aspiration, Marcaine 0.125% along with Depo-Medrol 40mg was injected to block the T12, L1 medial branch bilaterally. The procedure was repeated in a similar manner to block the L 3 branches bilaterally. Once the needle tip position was confirmed, the medication was injected and the needle was withdrawn. 0.5 ml of the drawn medication was injected per medial branch. Negative hem and negative cerebral spinal fluid was noted throughout the procedure. The patient tolerated the procedure well without any overt complications and was then taken to the recovery room. Home going instructions were given to the patient and the importance of pain diary for follow up was explained prior to procedure. [Electronically Signed on: 10/27/2020 10:54 EDT] Juan Carlos Owusu MD [Verified on: 10/27/2020 10:54 EDT] Juan Carlos Owusu MD [facility] Patient Handouton 10-27-2020 Patient Handout [facility] Progress Note - Nurseon 09-29 Progress Note - Nurse PATIENT CALLED IN REFILL REQUEST FOR PERCOCET 5/325 DAILY #30TABS. OARRS WAS REVIEWED. PATIENT IS COMPLIANT. REFILL REQUEST WAS SENT TO [facility] FOR HER APPROVAL. FOLLOW UP IS IN PROGRESS. [Electronically Signed on: 10/22/2020 13:32 EDT] Araseli Cabrales [Verified on: 10/22/2020 13:32 EDT] Araseli Cabrales [facility] Patient Handouton 09-30-2020 Patient Handout [facility] Coding Summaryon 09-28-2020 Coding Summary HTMLBase 64 DdvuuoccKNe6aXk+PGhlYWQ+P A2ROSQuK09ekDBrbT6TP5gXIJ 8EQXOUMJGGSQ1BIY1lvYK0XNy bK0YrywJg DivxkMAaFP94NEl6WXQ7lVgzR TkbzE1jpADdL4i9HmGfOD05cR 62UXpyEPTqHjN5YzSwplfxuIZ y O9ufVaIogRDzXqq+PHRhYmxlI HdpZHRoPScxMDAlJyBzdHlsZT 5wKc1hGCDpURJxePqioVStZsG j b9dmBENfQIzbDK6ulKzcQ3Lin FE7UIFoa4l1Oy64nQB+PHRkIH J5oLipHEkld060FqJbo0hwNYT 3 tLCkJYjzPOE3Y80by9K2OMDnV WVlOUQ7hEJ7oF3nrHkxjmepO9 IweYHfQbI4AXU2bTDcvP7vcIs n rekmtI7fYzf+P08LYS5CVHUPB W7LSjy8M2FwWdpxkNN+PC90YW XtMR61cITinWCjk0efvOu6ChF w GNFtIHW9sKcfBQjtq5XiOIDiK 00etJTdf1S3SBWfwRkjaJLwBf IcgSI3mA2lEFnkgpajt0vsbpw n Ubjew7jvan53bB71I51aVHxhG ROsHTK2EGXaCEFucTgrqq2uuA 9wIi8+SEobx0dvo1hxyJp6MoU w LAGkzvHqsBhyXWX0r2JdWw17Y 5TuoUens8VnYoz7yg69xHEvr5 G7gLB7EDtuOFArsW7sYIkvKlH 6 NBKpNcNwdE24mLOpABfePn7or VyadViiPW1yERCdxpohTZFoaK 7eOKVrhHYoeYszYQ0kUNLprna m m295SpKaNHI5AAKxvIAwZ0Gbm V2uHoArEJJsZDAvV0CenOZpIC auG352IRbfFqR4VNRkezKrG1I s KVFpiAdbLkB1a4G8Pa7Lq4Lch pbeUBB8EGjhJTA6YkWbMaPfSf Z2B0PlTps4MQXdwPyjHY1aX9T h NUWbcybtwlyrwNG1MXLbWLAhe D30gEOdKZnlXu9lu2G5m580FV NgPGMnbX14Ec4rbTerTLPlbDI U fA4gxnjnh2ypixmrWxUpGZXwO Cc7RGw6EQBklFnwXxZnHRG5Zm N2NZL4sTTaiJ3jfPalwbjyiD0 w Oyc+U31xpR7pPIZ1UVQ5wowcX OBqpyJpPG85SR38K6IuBlthlY FibGU+XSAgrtQgtZtzBN1yDnW j p2ikf5DkBKsqD5CzXPAqOXujB qt3FHLmTHD3kTQ1hA5aIRApSL lur3E0fJS5E1MlpzRuwy6ai7e s PUNsBRhiK73uxILiq5V5IGAuf JE8BGSedBpcMbFlwF19Jls+PG SffUhtb6KpMvycl8gsv4hupIv 9 BaSySFLdkwDklSrnRDL1q5GrV j54U85tSLumPVMgTNVnQMBoFP EwqPbrak9cmO6yOq3+PGNvbCB 3 kSF3nP4pFNIqArM0VXvpS683Q rYygGHhXstec4cdq1rmwKh1Hj XfFVCpuwJlsAtxWZQ7i1WePe6 8 Z15fXUfzEMNgHYPkWANpCITxu Aezpi2coS1xSx5+SQ7af8iutc 55yV40aGS+NVStDQG2uIegMHy w LPAuvX0yGAlpYrE8QRWdAbRmh U31hKLgDTfcXn3ruJitbCeePI 2xXBTfdcczl538RzFld6bxSPW w nSJdLVetYBD5N07fj8A6DLSkP VDtJJD3gYM2jQ4kcDufiyiliH GybBeopeSkaOwyRVyzRLgjJ66 6 IHRvcDsnPlBhdGllbnQgTmFtZ Zy0Z8LpHni1OGHakBbbSL6vfH DuBUzwQz0tsHyqnYfxUF1aMDR p odtat246BlArc2dtDIQboNOyC OrsSRO5U72ie0R8IXKuPIPnYB J4pKK2kW7neRcfwalbvOBwpOn g onBdqZkkRGnwOAelG643HEVhe FkkApHcaaOiQIBfcPE2AP19LA 35lAVel2M5tAN4A2TyEIHmarl t smaxkTZ9GSGjQRSjbA05Ui8fl JgrLf2aFPDnAFB8NXYiuHBsA5 KwuH3gIeVmEDUuKYPbJ3XftCQ t NOvmI011FBprHuL2SPSgylOxM 4BuOIUtaDfqTjU7j9Q1Xj6YZ6 T8NI01PX94wIUis7Z4wTR5K3H h LCSizubgcszgeOI6OWHrQWExl H86Yp3xsUxpMb5jYYNgMEV0VC AxbBLkJ3RsbK3gLiFyOLPtPHC w I1IggCAgSEcjG620LWwmQgU0N NCxlhSpR9GiOEImdEfwDgI5g8 M8Qv0QNSu9KW46NH62vGTsp1N 5 wRY9X2WdYRRucmlejulauEY2N JJfEWSpqT90Jy1jjXbqQk0nCA FmPBV1LZGosOCqG6PhcX1aImV j ATMsSDZwN0MizANaRQzqM087I JyzJnR4MZNlfsSmI5YtFWVwfC rbMkG5f8K8Be3BPAKvGP74KXE 5 gGQ3FI04LF35X2UpFgfjuORrz +PHRhYmxlIHdpZHRoPScxMD QiTrUzmCflJH2zPn5dLCDoEML v zUeaiKZtLdFhg0noPDDtQJpmL Y9pkZxnC8NjbES7VWIij4b5No 13T94mA3RqbLE+UPFdfBY1oIY 0 oK4iUhGaUeB6QUhgI694KeTyc UKyDcaqj9kyx0cuvQd8HwZ7ZD BbnzLrmLmrLMP0z3RnZs37Z92 s IHdpZHRoPSIxNSUiIHZhbGlnb s9edM3ePc6+NFCeiZE9gWE1qW 9gIrHsJzC2KFabL329GjYevNC v Pzodj3otx2lsdRk4ZgNoGJHsc nUasScsMDJ0z7MiYh09A3DbhG mda8YlMzt7gw85hVPrd1E9hPM 9 K3WcYRLkxxqsjGVuwJelCC5yB ZLsmybmZJRftH5dOWVyI1k3Lj DiLrK2KDeaV4QnqmW7ORScdID g NTloKYJ5G94xk8G6MGIqGLJhV OQ5nYS8bG7zdJekasyyvIZkjH yvesByaOexTCikJCmqL940WHM v fAtvTZCaxB4vSCKfnEGeuCvjE J1oJYMpnexcQrwFDWSWKIJPWE HKJQhnPXmRSL89T0EuOar0KEZ z nRvrVM1heUUoBZksMe4nhMiwd ZmcLF2cGIYlbntpZIJotB9mEW GsrDFluGqxBM6uNIWwqdunr36 0 NhXhHXX6WDAdrBMeL9NsnJ5eH iCxVXLaHNQgG7MbkIArYBbbG2 11WUolAvR0QDBnufAiL6JnJKM s uYqbOgI9f7P9Pe7iQU2uJb1kN Gv8KG17FX50pCZdx5L9nII9H0 NhJLUvwddnwzsmvPE2RRGgODV w zW48hMUpJVwtUs7gc3C4e503Z RFqQOXfhP21Sw3zkAvpDNLvyV YJpB1ypdhzj8rcrsplTgHvNPR w ZZd9DZf5UAUogChvKyYtAQZ1U bK3EFW6cMWmsP9raJbbjoompM 9wOyc+NRWcQSZhthC1A5OaTom 0 BTQntDdcAA4gvPCjYRxrNw3yn DqaaJeyLN9fGUUvvqqxDNIwhX 0jWBOznVLkoEqoZW4gPMIkhdt m m778CnNmXMJ6HNRtpDInW4Axc D2fHaCsODPiBGBhA6RuqUVzPY czP306AApuUcN3TIEvxvAiA2U s OBTqpRsyAwR8d7Y0Md2PCNpBV G16HD23aLWcw7N8bGW0M0WjZJ OzdlpifuzbdSI1JGXjBFWlfS6 7 uIMwCZesYs2ss5Z9v796APXxE OJuzD13Qw1heTnmNKDqrATXeP 9sgqjta5edionlZiNxKPQgIQg 0 COo3YKUphBthBnUnAHC9JkJ1W WL4mXNcbB9ipRjxoyhfyA5rMk c+R2V9C9BpYhlfoLB+ZV93BLC s PB20vBUrvFTyk3nohEb8JnWmH SPmCOZ9uPlsYVsbg0VeXURmJ0 6txNDdp2S3TQMiuUjaqULsDtJ l pTM4dI1aFIrjbwjny8ysslheY pqik8iuxz48aZ61O57hSRudYI LwLGErHZRjMIJdvKqxcf6fjK2 w Ii8+ZUNonXU4hGC3aK6gIsJsY oJ8NOgbI396BiVplDChMfkvb9 xvr9szjFy5YlGeNVUxezIedSh u JVP6b0WaAo72E48aADeoQXEoB SAsFTNqZRQpxIppcv0jfR3dYk 8+JU3te7wlkt85jT29pMH+PHR k AUV7nUphTAisDEDngZ7zNDgjU bU4WCTrFyKuiA68oOQnMMobIo 5fkHadcRluZC5kKJXkzlibu29 0 HiEob1eeQPGafWWeRSnzNVB2N 58ab8J0AZUwBGOzJLG9tWK4nT 1hbGlnbjogbGVmdDsgdmVydGl j QTrsIKcfU185UJEekThcSuWeh XNpN1lddzNSJI3jYaynbMN+PH FkZCI1pWmsCPmwTSKnrR3nBWS p K6s3UmIgGfX6HLhxO7ZotkM9S VOhlDZdHEXwwNKNsB2hdwluj3 gbaiupFhExAZBrUZr2YMz4ZBG s gVamRtPiPJI3GmU0DDY8jOFkw P1rhExwqplyuG0nPec+RklOOj wvdGQ+AYRlHIA1uGicCDfoBJR k kH6gDVNzP9b0PiCcPcI0VAfbI 9LcmdM1CXWfrBLrZYFqiFCQgB 9wzjmuw0mcvzgcTkPhMUNjFMx 0 IDt0CMGwyHnlLgFnHCM9HvV3J WC7rCDoxN7sfHojwsgksQ9yUk c+TVJOOjwvdGQ+MMAhKQV0tEd l IYqcHSDdgA4iRJJzK2f3LgXpI sI0XKqlK3NvogM0RYHjxHLmCO JwpUWJnL4ungdaa7ovwbseJiB w ARPfAFu7OPw7WPIqaAhgXdGtJ VE2RpZ1FLL5cCXlgR5dfPmxst gtnG6bYmt+XLO3JSP1ZY53XZ3 8 X4BaUcohyBPtiBO+PHRhYmxlI HdpZHRoPScxMDAlJyBzdHlsZT 4aVu4aDEGwZIZzgNhlaYDyBhY j b2x (more content not included)... [facility] Consent Formson 09-24-2020 Consent Forms [id number] [facility] Progress Note - Provideron 0 09-23-2020 Progress Note - Provider [id number]#[id number] [facility] Coding Summaryon 09-16-2020 Coding Summary HTMLBase 64 GogadnwyZDk4oLl+PGhlYWQ+P R5SLZBgQ77izJSfvS1XX5bIZB 3HYWGKTLZQWR1UAR9hsQN2DAc nX3DipfGf ExnmrYYhPJ25FId0KOW6yGxaY KlaoC8wbMWkC6b6DtZbSK00jD 56SBjfHHNaBbK5OvZmiaszpVV y X7hdUlSgyHJcQvy+PHRhYmxlI HdpZHRoPScxMDAlJyBzdHlsZT 5sQc1kUMNxKBSjrAhwfBXjLgP j a9vuJBUwAMjeKF3vcZreV7Rxn ZI6LXGio9z1Dv34yJB+PHRkIH V1uRdpYIprs474VbMwz8cfQUV 3 tTMbKBavVXH8H84zu4L0NLWoQ EBjYUT4aNW1sA0onAcljwlcG9 BhlJLdWzX4DCN7uMDlpA1ogHg n cnbvyX6bGvj+E85RFO4KPKMEY X2LLsx9M8SmOxtwsLE+PC90YW LuKU23uZOgpSPmt4jtkQx8HvO w UOCnSQL1cXerFKkmz6TiHJEnS 70jzKNhe1Y8EGDrzEgdfNPvKj NvuNP5nW1kIEnvurpdi7jzaxe n Dlorp9djfe10hE04L53hQFqsX NLdUGW9DSVsPNHugMqhet9hwY 9wIi8+SPnmo8rsj3gmgDo4ZmH w FNTcjiGqwQisBQZ4a9VxCe37R 1IxeEonu5TiTna7ni93kLMeo3 A2hMO5UDrfYRBxxQ4bFYocWaY 6 TWAbCwVstN77uCYxLVagHl7fv CbzaIsrHQ4jAMOnzmuaKLIqrF 7iIAExzOYjmDrfAB9xRXAxaba m z247CuNgFSO9DWIjbWIlI4Jxo Z8mWsSsNIFiRTMoU7HifHOkTA jbN684BEdvJgZ0ZFBrbyHxX8O s XLJgsUvrDnL7j7D3Vp5Wz6Ocp bvxQPQ3UYkkZIA6OeRvFmNjSr I3N6HrCgv9MFSteKrpRT0yC3L h YWAfowtdiynnsQD3QOAtZBXpg M62sICyDKnnEd5dl7G3d457HB YxMXMxhH78Qe0jxXzfGJGmxWP U mN2pilvnx8lxkwxqZbWmBMLrO Mu7CUy5LOXhdNfxVuYqQMN9Kg T7CLV0zAMqwS3etCoywfkcaZ7 w Oyc+S79fbV2jSBD2GMA1mkihN TZpzuJiCI67NJ40B6QwHizxwX FibGU+PQQasqCtlIpcJP4aRdQ j y1qhe5NdPJvdO8VnRQWwWEfwR rm6EXKdOIQ5xGF2vO8dKMCjHL nbp2V5iYF8O9ZxxbLzcz9iv6o s EWThYVjfO31obVZef7E5TZHey PC0BQFeuEfkNgNegQ66Kpl+PG HezUkma5KsUnvbw8uoq1javGd 9 GnThYMQhksNseQviCRQ8j0KwC c96S08oMZksQIIuHZQxJRLhFR XafNwbfe1nmD0vMz2+PGNvbCB 3 kAG1jP2gAKCmQqT3PEfgT896T fPsfALeUbhtl0sck7xsxMx2Al WnEBUcjwNudAidVGP3z4BiFn2 8 C00lHGsmZOIhOMYqZLEaPSSfk Zhgsr7sdP4zTj3+AL5nx9fori 47gI36bHY+NQFrHKX7jMcpSVa w QXUzzI4eKTkeWvV6DDYtFxRqh B33sCGpWZwrPh9jaTswqDhtXY 3wZFKvrcmjd610XvGih6bgYQR w fKCpCLxoXBN1O94iz3Z4XELgU DRcGSC0rLW4wQ4crMvcnpwfnD JwtDckozVzwEsgABifAUddG92 6 IHRvcDsnPlBhdGllbnQgTmFtZ Iu9B5EkFkm2GSOokDlbJN0uqY RhNDncZb7dwQxebModLU4tWZB p rhzoo595FaXov8ioLPLloUGtU LdnAXP1H73qw1J2OBHeQVVuJG P5iTG7kU0mwNxdwttedHYwiLs g rjTtfJeeQVdgAFwaM588JHJud UvjHxUseeGrAZIwgWE2KP12SC 53eXVuq4J5xGG2E4NfZORjhdt t vrzroDN1DZHyXZUotM14Cn9du UctZp5pUIJuMSF4GYOprRSgJ7 EddJ3hUxKhVIZxQHUyZ0HlzEJ t UQjxF452EBppFnP6ZSSuclEsI 6XfXTPxcNlzUdR8h0H5Eu3IA4 T2AQ80DU47dRAws7T4aMK3F5S h FKCvwkzbxlhzqRF2NQLeLWGqy B80No1gdQqcOn5lOGDqCNP8ZQ XrqFHmG9BrbB1aDjDvKLFiQBO w S4ZtvTJiESzuP322LHzfFpH4C UJftjSzZ4JzCMTlnTxhZhL1f9 B5Ju4IACw6MR50YH79xVFrm4B 5 yEB3Y0RtXBTiogidshmdfSV8G WVbFIVjxA09Ig3giRwhQh5yKQ TjKMK8TZVaiNScS8RmwC2pJbR j TJOvDIEdK5QyeQNfVUhvQ638N EuwDwG3WFWautUrX2NhCCPqzE ypPrC1i7D4Nn8MQPDvKZ92RFG 5 iSI3BD49IZ19E2XmXpfeqAUmq +PHRhYmxlIHdpZHRoPScxMD BfOkWpiBsxDF4aDx5eSCKtLGC v cEihsUTvKpAhp4xtKDFnCCraV U1avVmcB3FtkOD1SJRgq7z6Lg 38G29qS5YswBZ+FSOjcBX4dMQ 0 kA6zDgGiAsH6VFasE045OiBxq ERcNufgu5jfw8ytcFv8HvM2WK JrhzJsgGwiLWR1i8OhCu29F07 s IHdpZHRoPSIxNSUiIHZhbGlnb q1hiT1dIx5+PTYcwDN2uHT8nB 9gOuMyTbL4YUerQ917LgVgvUR v Tyuxy9puq7mamMw9EqBsUBBop zVmxXijKTB0y5SaKu59F3ZvfO jti3OwUzq4cs57nORvg3Q1vFX 9 H6RdFBZesczdgMIjwBsqYW5lM HWlcjaxBYTfdG1sLYOmJ3y8Ec VyHnW4LSzlD6YdemM8DIAmgMM g QPfoEDG7F01av7A1XQEmFLLtD CD0zVI5gN6caPfnwlqbvZQbbR gcrlQhuBwkEAesHYsbI881UOY v uTtuKJTzxN8aKTGweXLgzFpcB N4nWGBdswofAxuFOTMTJVQEPO TQFZcqYZoOXZ28L4SjGwu8VAF z eXymKG2vhFQgNPloEv2rsUyhr QhaFC5nSEKnhepwQZDiyU4bKW ZgkLVyjHoyXA5eBUKdeqfqe98 0 TmJcOKJ9GVOatVAtG0ExzF0uO rPsHLArFZTgX1DrcXIxBTyeW6 66BFwkFbQ4KBWqvuVbX0YhZCX s yNilOhZ5q3C1Uh8iZC1zWd6mE Ns3VJ17XV36fRBoj9Z8gNO6F1 VcTILgbzgrujutfAA1JSZuCAO w dQ35yVTuFQcuMq7pj5J8d839Z EDoQLInyG72Yb8edFggAFFisE YIxC1snglsk7mqleeeFyXiHYU w ONs8UKy9CSJkuOhvNhSxJCK9O sD7RVP4vHQxlX2ovJnilopixY 9wOyc+MMXpZSDrccF5N2OdXxh 0 SSUvcHnzPC2saXKcJGmsFv7pg QbloLolZU5fBPNvvvihJYSvaV 0aLEJxtHVbxWtrAW7tQOSntec m t184BhSyDJZ2BZAmxWJfV5Tto C2mPyAxGOVrRSJcL6HinOMvZW fpY899JGrrKuM0QJPdufDoW9D s DIQasHrcKiD4r4Z2Co9LJErAP W15MA60wZQsk3G4lLX3P8ZgIO JyehpzfeqruWB1VPBxRATfnA1 7 fPCpGSofBg5ma9Z0y477EOKgW DGxxS18Od8ocSojGKGntJKJpS 1hogufe1vvqeneMfZhDIDlNRo 0 EVo4RTAegKmlLxEvIKW6OlW2T NI2yYCfxD1bqChswwsnwQ4vMe c+NYA0QYY4ksrjtbw6F3ExMgs v dHI+BB87TJHnVO42bGDkwTCdk 2dwrGk3TuZvLAAdZMI2qTqoKN fyh9EmNFGyO66muRIli2B3OJO v kTnxsFXfQcOftQU0eY2rQVoas lult5yrytzgYrlpu5rsvk58xM 67T63uGPjfUJXiFGPnNGHbHXB h qZjaxp4wiO4jUv7+LZKxqOI8q OO9uL6yNwLrKtN8IApdD168Nm BzbXQlFtkzi7bfd8fyuSo5YfE w SDJgoxLwvInmRMU7c6XbSf15D 29sIHdpZHRoPSIyMCUiIHZhbG ifbt5jpT5pYs0+SO6pq5ebzz4 1 fE60nDI+YCGjGYW6mKquZCxjV ADrtA0nPAknDnF0OGQhXfRbqN 48yUNvZQhrLw1jyWdncFrpDB8 w ZZHqjrxvj123JuGoz6jcUAUjs LJtDIsbAQZ8L71xg6K3XTIbSP SxDNS7pTN3sK1uxMnkwalosQP m aFvrosHxpFkiDFmxHBsdN831C VVnkBmzEjArwSBmS1dgcpQPTB 1lOjwvdGQ+DLYxQDN3xDbiOJr w AMBerZ9iVREyM4i3RrRgQeB0E PmkA4WjtgD4YPObeBTzKMAwuM FRoL0rtlpjh0lvzegtUiBrYOD w DDd1KQi3FNRqoDtmYvMvIWG5Y oW3SRQ1qPZslM3wpInmtlckiK 9wOyc+RklOOjwvdGQ+PHRkIHN 0 eUdeDVlbPWBptV6sFOSmR7i0J iLaNlB4JKrlD2IlosX1ROSbtS PsVXPbdPKLaJ1lqgjnh4izedw g TvHrRBPcUAg8HKl2LUYyhObmK gIlNXX2JqO1QTR8tOKixP9drO odnhepuL6kByr+TVJOOjwvdGQ + DTYdZUF0aXpfYYzzPBHvaU8xY GZjH4h3VuNlNyW8MFyuN7Feov O5ZIGgoMZlNSYmyTQSoS6iyvs j i1bpouzxVbXsHAXzPOe0XRv6M VWqgKsrBlMdHQO6AgN9UGS9fM WfmO8kaTombhvsaC2sHdi+UGF 5 OKP3TF98MT74T6ItKvpnzTNlw +PHRhYmxlIHdpZHRoPScxMD TwYoGjbRchKH1kQo2tTEVkBRP v bGx (more content not included)... [facility] Consent Formson 09-16-2020 Consent Forms [id number] FF [facility] Anesthesia Noteon 09-15-2020 Anesthesia Note Patient: WILLIE EASTMAN Age: 45 years Sex: MALE : 1975 Associated Diagnoses: None Author: Hang Iyer MD Postoperative Information Post Operative Note: Post Anesthesia Care Unit. Health Status Allergies: Allergic Reactions (All) No known allergies Physical Examination General: No acute distress. Respiratory: Respirations are non-labored. Review / Management Condition: Stable. Assessment Anesthetic outcome No anesthetic complications noted. Adequate pain relief. No Complaint of nausea and vomiting. Plan Transfer/ Discharge: Patient can be discharged from PACU when criteria met. Condition stable. [Electronically Signed on: 09/15/2020 10:15 EDT] Hang Iyer MD [Verified on: 09/15/2020 10:15 EDT] Hang Iyer MD [facility] Anesthesia Note Patient: WILLIE EASTMAN Age: 45 years Sex: MALE : 1975 Associated Diagnoses: None Author: Hang Iyer MD Preoperative Information Anesthesia history: Patient history: No difficult intubation, No malignant hyperthermia. Family history: No malignant hyperthermia. Review of Systems Respiratory: No shortness of breath, No apnea. Cardiovascular: No known [place], No chest pain. Gastrointestinal: No heartburn. Health Status Allergies: Allergic Reactions (All) No known allergies Current medications: Home Medications (3) Active Flomax 0.4 mg oral capsule 0.4 mg = 1 cap(s), PO, Daily traZODone 50 mg oral tablet 50 mg = 1 tab(s), PO, Once a day (at bedtime) Zofran ODT 4 mg oral tablet, disintegrating 4 mg = 1 tab(s), PRN, PO, q8hr Problem list (past medical history): No problem items selected or recorded. Histories Family History: No family history items have been selected or recorded. Procedure history: No active procedure history items have been selected or recorded. Social History Electronic Cigarette/Vaping Assessment Electronic Cigarette Use: Never. Alcohol Assessment Use: Current. 1-2 times per month Tobacco Assessment Never (less than 100 in lifetime) Tobacco Use:. Substance Abuse Assessment Substance use: Current. 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 Physical Examination VS/Measurements Vital Signs (last 24 hrs) Last Charted Heart Rate Peripheral 69 bpm (SEPTEMBER 15 08:28) Resp Rate 16 br/min (SEPTEMBER 15:) SBP 127 mmHg (SEPTEMBER 15:) DBP H 98 mmHg (SEPTEMBER 15:) Weight 124.40 kg (SEPTEMBER 15:) Height 175.26 cm (SEPTEMBER 15:) General: Alert and oriented, No acute distress. Airway: Mallampati classification: II (soft palate, fauces, uvula visible). Mouth: Within normal limits. Respiratory: Respirations are non-labored. Cardiovascular: Normal rate. Review / Management Laboratory Results Plan [place] [employer]esthesiologists#(ASA) physical status classification: Class II. Anesthetic Preoperative Plan Anesthesia: Monitored anesthesia care. Anesthetic plan, risks, benefits, and alternatives discussed with the patient and/or family. Patient verbalized understanding. Informed consent was given. Consent was signed by the patient. [Electronically Signed on: 09/15/2020 10:09 EDT] aHng Iyer MD [Verified on: 09/15/2020 10:09 EDT] Hang Iyer MD Normal [facility] Inpatient Patient Summaryon 09-15-2020 Inpatient Patient Summary [address] [address] Patient Discharge Instructions Name: CARMELITA EASTMAN : 1975 Patient Address: [facility] [address] [facility] [address] Primary Care Provider: Name: Misbah Dnoahue After you are discharged if you find you have any questions, please, call [phone] ext [phone] to speak to a nurse. Discharge Diagnosis: Low back pain; Lumbar neuritis Prescription Information: If you have been given a prescription for narcotics, seek immediate medical attention if you have any difficulty breathing or any sudden status changes such as confusion and sleepiness. If you or anyone you know is experiencing suicidal thoughts, mental health, alcohol and/or drug addiction problems; contact the [facility] 20/11 Crisis Hotline -Text 4HQKD to 596388. If you received any narcotics, sedation, or any other medication that causes drowsiness for the next 24 hours, unless otherwise directed: ? Do not drive a car. ? Do not operate machinery such as power tools, lawn mowers, drills, sewing machines, or stoves ? Avoid alcoholic beverages and drugs for allergies, nerves, or sleep ? Do not make important personal or business decisions or sign any legal documents [facility] would like to thank you for allowing us to assist you with your healthcare needs. The following includes patient education materials and information regarding your injury/illness. CARMELITA EASTMAN has been given the following list of follow-up instructions, prescriptions, and patient education materials: Follow-up Instructions Medications During the course of your visit, your medication list was updated with the most current information. The details of those changes are reflected below: Medications to Continue That Have Not Changed Other Medications ondansetron (Zofran ODT 4 mg oral tablet, disintegrating) 1 tab(s) Oral Every 8 hours as needed as needed for nausea/vomiting. Refills: 0. tamsulosin (Flomax 0.4 mg oral capsule) 1 cap(s) Oral every day for 14 Days. Refills: 0. traZODone (traZODone 50 mg oral tablet) 1 tab(s) Oral once a day (at bedtime). Refills: 3. It is important to always keep an active list of medications available so that you can share with other providers and manage your medications appropriately. As an additional courtesy, we are also providing you with your final active medications list that you can keep with you. ondansetron (Zofran ODT 4 mg oral tablet, disintegrating) 1 tab(s) Oral Every 8 hours as needed as needed for nausea/vomiting. Refills: 0. tamsulosin (Flomax 0.4 mg oral capsule) 1 cap(s) Oral every day for 14 Days. Refills: 0. traZODone (traZODone 50 mg oral tablet) 1 tab(s) Oral once a day (at bedtime). Refills: 3. Take only the medications listed above. Contact your doctor prior to taking any medications not on this list. Diet & Activity Patient Activity Level: Patient Diet: Patient Activity Restrictions: Comment: Patient education materials, if any, will display below Viruses or Bacteria What?s got you sick? Antibiotics only treat bacterial infections. Viral illnesses cannot be treated with antibiotics. When an antibiotic is not prescribed, ask your healthcare professional for tips on how to relieve symptoms and feel better. Usual Cause Illness Viruses Bacteria Antibiotic Needed Cold/Runny Nose NO Bronchitis/Chest Cold (in otherwise healthy children and adults) NO Whooping Cough Yes Flu NO Strep Throat Yes Sore Throat (except strep) NO Fluid in the middle ear (otitis media with effusion) NO Urinary Tract Infection Yes Antibiotics Aren?t Always the Answer www.cdc.gov/getsmart GET SMART Know When Antibiotics Work [place] Department of Health and Human Services Centers for Disease Control and Prevention December 2013 [facility] MAGR Intraoperative Recordon 09-15-2020 MAGR Intraoperative Record MAGR Intra-Op Record Summary Primary Physician: Juan Carlos Owusu MD Finalized Date/Time: 09/15/20 10:15:33 Pt. Name: JUAN JOSE CARMELITASRIDHAR Irizarry/Sex: 1975 MALE Med Rec #: [id number] Physician: Juan Carlos Owusu MD Financial #: [id number] Pt. Type: D Room/Bed: / Admit/Disch: 09/15/20 08:10:15 - Institution: Case Times MAGR Entry 1 Patient In Room Time 09/15/20 10:09:00 Out Room Time 09/15/20 10:15:00 Anesthesia Start Time 09/15/20 10:09:00 Stop Time 09/15/20 10:14:00 Surgery Start Time 09/15/20 10:12:00 Stop Time 09/15/20 10:14:00 Last Modified By: Luly David RN 09/15/20 10:15:23 Case Attendance MAGR Entry 1 Entry 2 Entry 3 Case Attendee Juan Carlos Owusu MD, Satya S MD McKenna RN, Luly Role Performed Surgeon - Primary Anesthesiologist of Ward Nurse Record Time In 09/15/20 10:09:00 09/15/20 10:09:00 09/15/20 10:09:00 Time Out 09/15/20 10:15:00 09/15/20 10:15:00 09/15/20 10:15:00 Procedure Epidural Steroid Epidural Steroid Epidural Steroid Injection Injection Injection Last Modified By: Joann RN, Luly David RN, Luly David RN, Luly 09/15/20 10:15:07 09/15/20 10:15:07 09/15/20 10:15:07 Entry 4 Entry 5 Entry 6 Case Attendee Scott SIMON, Halie Cabrales, Tiffany Flannery CST Role Performed Ward Nurse Ward Nurse Scrub Personnel Time In 09/15/20 10:09:00 09/15/20 10:09:00 09/15/20 10:09:00 Time Out 09/15/20 10:15:00 09/15/20 10:15:00 09/15/20 10:15:00 Procedure Epidural Steroid Epidural Steroid Epidural Steroid Injection Injection Injection Last Modified By: Joann SIMON, Luly David RN, Luly David RN, Luly 09/15/20 10:15:07 09/15/20 10:15:07 09/15/20 10:15:07 Entry 7 Entry 8 Case Attendee Flores [place] Sarah E Role Performed Reverse Unit Operator Fisherman Reverse Unit Operator Fisherman Time In 09/15/20 10:09:00 09/15/20 10:09:00 Time Out 09/15/20 10:15:00 09/15/20 10:15:00 Procedure Epidural Steroid Epidural Steroid Injection Injection Last Modified By: Joann SIMON, Luly David RN, Luly 09/15/20 10:15:07 09/15/20 10:15:07 Surgical Procedures MAGR Pre-Care Text: A.20 Verifies operative procedure, surgical site, and laterality Im.150 Develops individualized plan of care Entry 1 Procedure Epidural Steroid Primary Procedure Yes Injection Primary Surgeon Juan Carlos Owusu MD Surgeon Comment Caudal Epidural Steroid Injection Start 09/15/20 10:12:00 Stop 09/15/20 10:14:00 Anesthesia Type MAC Surgical Service Pain Management Wound Class Clean Technique Details Closure Technique N/A Entire procedure No was performed via laparoscope or robotic assistance Last Modified By: Luly David RN 09/15/20 10:14:30 Post-Care Text: O.730 The patient's care is consistent with the individualized perioperative plan of care General Case Data MAGR Pre-Care Text: A.350.1 Classifies surgical wound Entry 1 Case Information OR MAGR OR 02 Case Level None Wound Class Clean Specialty Pain Management ASA Class 2 Diagnosis Preop Diagnosis chronic low back pain Postop Same As Preop Yes Postop Diagnosis chronic low back pain Blunt or No Is the procedure No penetrating injury considered occured prior to Emergent/Urgent? the start of the procedure: Last Modified By: Luly David RN 09/15/20 10:14:34 Post-Care Text: O.760 Patient receives consistent and comparable care regardless of the setting Time Out MAGR Entry 1 Time out date/time 09/15/20 10:10:00 All team members Yes have introduced themselves by name and role Surgeon, Yes Surgeon reviews Yes anesthesia, nurse critical or confirm patient, unexpected steps, site, procedure operative duration, anticipated blood loss Anesthesia team Yes Nursing team Yes reviews any reviews sterility patient-specific (including concerns indicator results) and equipment issues/concerns Antibiotic Antibiotic N/A prophylaxis given within the last 60 minutes Is essential N/A imaging displayed? Last Modified By: Luly David RN 09/15/20 10:11:13 Patient Positioning MAGR Pre-Care Text: A.280 Identifies baseline musculoskeletal status Im.40 Positions the patient Im.80 Applies safety devices Entry 1 Procedure Epidural Steroid Body Position Prone Injection Left Arm Position Resting at Side Right Arm Position Resting at Side Left Leg Position Extended Right Leg Position Extended Feet Uncrossed? Yes Press Points Checked Yes Positioning Device Pillow, Safety Strap Outcome Met (O.80) Yes Last Modified By: Luly David RN 09/15/20 10:11:24 Post-Care Text: E.290 Evaluates musculoskeletal status O.80 Patient is free from signs and symptoms of injury related to positioning Skin Prep MAGR Pre-Care Text: A.30 Verifies allergies Im.270 Performs skin preparation Im.270.1 Implements protective measures to prevent skin and tissue injury due to chemical sources Entry 1 Skin Prep Synt (more content not included)... [facility] MAGR Preoperative Record MAGR Pre-Op Record Summary Primary Physician: Juan Carlos Owusu MD Finalized Date/Time: 09/15/20 10:09:50 Pt. Name: CARMELITA EASTMAN /Sex: 1975 MALE Med Rec #: [id number] Physician: Juan Carlos Owusu MD Financial #: [id number] Pt. Type: D Room/Bed: / Admit/Disch: 09/15/20 08:10:15 - Institution: Pre-Op Case Times MAGR Pre-Care Text: Patient will be optimally prepared for surgery. Patient is free from s/s of injury. Provide information to patient/family related to plan of care. Verify patient allergies. Confirm identity and verify consent before the operative or invasive procedure. Entry 1 Patient Arrival Time 09/15/20 08:26:00 Preop Departure 09/15/20 10:07:00 Last Modified By: Luly David RN 09/15/20 10:09:33 Post-Care Text: Patient is prepared mentally and physically and is ready for surgery. The patient remains free from s/s of injury. Patient/family express understanding of plan of care and participate in decisions affecting his or her perioperrative plan of care. Allergies documented appropriately. Patient identifiers and consent correct. General Comments: Pt arrives to psw ambulatory. Pt has pain #7. Pt denies cp, sob, cough or flu like symptoms. Pt denies pacemaker/defibillator or sleep apnea. Pt has a pain stimulator on right side of back. Discharge instructions were reviewed with pt and he verbalizes understanding. Finalized By: Luly David RN Document Signatures Signed By: Luly David RN 09/15/20 10:09 [facility] Operative Report - Surgeon/P shagufta 09-15-2020 Operative Report - Surgeon/Physician Patient: CARMELITA EASTMAN Age: 45 years Sex: MALE : 1975 Associated Diagnoses: None Author: Juan Carlos Owusu MD Caudal Epidural Preoperative Diagnosis: Lumbosacral neuritis, radiculitis Postoperative Diagnosis: Same Procedure Performed: Caudal Epidural Steroid Injection under fluoroscopy Surgeon: Dr. Owusu Anesthesia: mac Estimated Blood Loss: <1 ml Complications: None Description of procedure: Risks, benefits, and alternatives were reviewed with the patient. All questions were answered appropriately. Subsequent to obtaining consent, the patient was taken to the operative room. Time out was called. The operative site and procedure were confirmed with the patient. The patient was then placed in a prone, alexx knife position. Betadine was applied to the sacral region spine and sterile drapes were placed. Under fluoroscopic guidance, the sacral cornea was located and palpated. A 22 gauge needle was advanced through the sacrococygeal ligament, into the sacral hiatus, and slowly advanced into the canal. Aspiration was performed with negative hem, negative cerebral spinal fluid. Loss of resistance was noted. 1 ml of Omnipaque 300 was injected which demonstrated appropriate epidural spread with negative vascular, negative cerebral spinal fluid uptake. Marcaine 0.125% Depo Medrol 80 mg was injected into the sacral canal for a total of 10 ml. Negative hem and negative cerebral spinal fluid was confirmed throughout the procedure. The needle was withdrawn. The patient tolerated the procedure well, without any overt complications and was taken to the recovery room. Home going instructions were given to the patient and the importance of pain diary for follow up was explained prior to procedure. [Electronically Signed on: 09/15/2020 10:13 EDT] Juan Carlos Owusu MD [Verified on: 09/15/2020 10:13 EDT] Juan Carlos Owusu MD [facility] Patient Handouton 09-15-2020 Patient Handout [facility] Coding Summaryon 09-13-2020 Coding Summary HTMLBase 64 SyqygytaMHz6oBt+PGhlYWQ+P K0WVNZiI22wwLXueO8OP6oMLG 3NQZQXEOOZIO0HUD8nyLI6KFn aV0MwxpBs HsiljZXcHY57RCt9NCG0bIgtU AmrgJ7qkEWbH1c1AjYtCL76gR 56XAjgMVFkIdX5LyNkhegbqGV y F6kcEeLmrNWqVun+PHRhYmxlI HdpZHRoPScxMDAlJyBzdHlsZT 6wJy2aXYRaUOQgpRvblBPfCvU j h4zdMODzGBvbDY6wcJuiE2Hat IH1PQJdv5n4Dh80zDQ+PHRkIH I3zJxeJKqen963LsZza7vyHIR 3 xMPuUGyxVVA1K55ce1I3TFHtQ XDpSML8iPX2wZ8iaOxilrqhI2 HomAWmSfK4SRV0cAWdpW8uhNn n jcnkbU8zByl+B64XIU0ZLORLB E7YZzf3Y7IcDmahnVX+PC90YW AoOE71cYDnpLJrq8twhFo0BnC w IRIoVFD1qXklXPvgn8WtKOPmT 52dkHJfx7R1JTCjqBqxhSAjDv WziDR3qM3qKYibgibvv5jcseq n Tpkui3scth17oY52Z54eAEzxH PYnCQW2QOJyJJBmgTnzgk9yzN 9wIi8+SAttf2bqc1ndsMu9SdB w YWYpzwYkuLtuRDE1w2ZoAc72W 9BwiAtxj4PgZei0ss65wXQwc4 O2yYI5JNmiTPMpnH3iKBboWrP 6 GFBnFyGidD53jDHuUDkeIz3gb UrzfQnpSW5sGHXtwopxJKKgsW 6kSHSzrLJrvFgjYO8tEPVbdno m u399JoNdIJJ2TXXwfIOnA4Ose G9bYqQaWAPzVPOmW0MseIZdZP zcL955MFwiGyP1UCUydnXzN0R s IXCahOwvOoD5y6F1Gl3Dp9Wpf dhuFCX4YDumVZV8CsB3JoKqQm H4M5VmPxg1ZXOusAikNE8jQ6F h LCDnbohtzhqjeMJ7RSTyASEyg H72uVRwQWmlOc4bx3U6m726GS FhOEInwD64Vx9wbNgzGBDncTV U sR0ugwxve5yewlowRaWgZTKwO Kx7XTu2TZSeqFafQhOkRRA4Ot L3VGE7yPLriV6ftMqyajclqV5 w Oyc+N76gpY1bJWZ3GSM4odrzG ZRrpsBlTJ65HK58U3ElTfihnQ FibGU+IGDjqrWylSioRF3rNkX j l6dyr1NfZYuwF7JdPAAfWSbqS kk6JAGePWE8lNC2mL2cPQCnDG ark2J4aHF3V9LcbiWxyr2pm6u s TGZdBDvoR61deUBpx9B2IFYjp YF6YUMawQpoYcRhiT45Cqh+PG NasCgak2ArTlawc6rru0kskJz 9 BpOwDWIhnkYauLgwBAO3e7LgL l30A15eFRkvDFImWJSlKPBkWT ZnuFgeyc0stY5iAs1+PGNvbCB 3 yCI0xZ2sIIKsWpY1UBtmG408Z nCorMYxTvbgn6kkp2miaJk9Ws ShWFXfkjFfdQjsATU4m4KbOh4 8 L87rLAcbCHDiRTXiAAEkXHSqy Gyjzs2gyO1aNz0+GX4bj3sbeg 95zM87hKM+KUJtZIN3hQgwKXm w YXLolY6dFFgzHxH6DDXtCqRmp H42eUQxKMelNd7ymLoqiKtcBI 3fFHNlxqaaw002UkXrs0ibJAY w jWBrAQawVGO2Q28km1C6ASXqO LEfCGV8zQO6qO2wtOaiefzbxV CnyYdgleVntPqeTGvpHAggC08 6 IHRvcDsnPlBhdGllbnQgTmFtZ Nb3A1QpXnu1CBPkzRvkAC3poU LdNYtmRj3zaFgwbXhuZB8kXQA p thees555CcEdl1ztXOYuaWYwI VezTNF2V14ap0F5UCVnFQVjPT J6aCV3uW9liRkbelrviOTlvFl g maNttCryOIicOCpmU892JNHqh RezBmKizjRtNZBogWZ1RQ56XE 88oDXkk9X3hTB3R2UaDSDmfne t dtoxvON2GAPsIPQvxD46Gn3sb YolXc9rJQTuQPL5ADYplHKaA2 QcwV0yWsQcWYMtRCXiQ9OsuJP t OAhnW541QRefEvQ8SXGihbAtE 5HvAXVhuBmqVzZ8k4Q9Bs4DL9 I5IV07XJ40uMUbs7N3kNV5Z6N h JVCuhvteexzpeXN8KTWgFNJup C23Ht1gnDdzKq8hUFNtNOD2CF EkkFLwL8CrsV2cRoSeLLCyEIP w I5ZktITeBHrsD963KBjmKbO8D ZHfmdCnT2BsFXNazOlgAoR2x6 H3Iq1DGVj9SH57NG80gBWdc9W 5 eSG4R7UpKKPdqrilzystmXX9R WNjBCZpaL94Ah1cjWpqQc1jYV WpDGW5GBBffSJsG8GjdC6jTiT j TWTsYEHtE0QeoVEnXGxhG989N HwgLaX3AOFkfkIbR2IfLJHurS mbRbV8d8S3Yj7DFVUlJI25UID 5 qXW2LY78RT45T2AbGqjxfYJdf +PHRhYmxlIHdpZHRoPScxMD QwQqNixQlrFF8eIh7mZLCiYSG v cWqjcRAwMhEww7ysLZXrWSgjL L2tiYjhD1PkpGH2RGYgs8c4Fe 86B46zR1VqtSQ+GOIdsSF8iJN 0 yO1uXyOvPoJ2CLbkS430KaQrg EBdMtifs2bgo2gefPe2HzD9DB SnnwLfwBlyIYQ7d4GkEl37N43 s IHdpZHRoPSIxNSUiIHZhbGlnb r1hxZ8oAj1+VLWtdWC6mTU7dS 0cZeLhOdK1XZtaZ409LmZxrNF v Phqcx6rkp8fnxCd2VrArJAAob pWpfPvkJJA4q4NsAg56Z5QluF xql1WcSxe9yj96uMBsp6L5hIN 9 Q3BrTUEoimttdTVwqUpgEA1tE SZmjuzmYEDwhE1uYOZtE0c5Ey FgRwB2QQlmG0YgyhH0IRTgqID g SRsfLDW9A90vp9G0KJFyZOBmC IV1uRU0fZ4fyKxffdixtKDusX etzvIatGazISryRWfmK620NMR v hBkmFQXwyV1yPJZjwMTscWgbW C5uLBNbrcksSwpDFLUNXQCWLG JPTAixRQqLCR90S7SgXqy2VNM z jNjhSX1lnXMwJZafOb4kiRlzg ZsaYU8jADElohblUAWpxU9wYP TotRHhoMhbFH9mCNBduwcju95 0 WkTfPYR5ZUCwfAKtS0OajP3bP wWnJTEiFQJxG5GleCSoZOtnV0 70OEqxKdA8KSJpdyIsE2ZoVYN s yIayNgB2k5Z7Sz3uBS1yTo0kD Kl0WS69XY37xFNwy4Z1fEJ0H8 BxZIJmiwyksfgviGZ6FKQvSMV w wU87aUXsDXvsNs8zm8X7p810X RAlELNqzJ43Lp5xyIjjZFTmsE BZiP7hflfju2hhpdicChMtZOB w KOu0XKc3MAUycHzmZcUvUQO7D pW8CWI2eZTsxI1hbQklnciuvV 9wOyc+ESVoLYNkhhZ8S9NmAus 0 WETdrCboJD8rkUJoPKxjHm7jj TbozUfoNF4aDQFoduwfRMGgfC 9fHBMrrYRskUncWD0hGIAvufq m u654ZfMsFGS5SHJlbJKmB2Ihw I7zMgBtUTWoTLGvP8QgcYLjEO odS612BIbuXeH5IZOagjZkY8M s EPXfpAoyNrM8l6Q3Ol8ALLyTI D99YS81vRYbv2G3eWX9R3WrWW IyeflyvvdskXC0XSRgOBFtiH9 7 lDBbCUosNb7mg9E9i285VHHsO DOtjB21Rv1xrVxhKZPfxHZSiP 2yhvvbv5hhdyqfBjLbGQTkEYb 0 KKe6OTLbbArmAmIxJWN6BlZ1E GV1zSDhkQ1gzGzarnurpK7vXs c+D5C2E6KsJcivmPA+OS67NOH s BS02aMTyzJTkt7okcPb1HeQzA WIsVPU3pLbjGWuau0ZqVEWwC3 6axYUgr5U7ZZLvdCwcaOGdRiD l vTP8wX4wBFiisewra6xqycdhL avhc6qgbj98wP70U19qAOzcJY SlWBDfUTMkPPMaqOymcn1viD3 w Ii8+WPCssRF5cNM6dE7dAaYtY rJ7CJhtX961DqVkcTYeNgacn0 enf0dfmGj6UzOgOLQfcmOgpWb u IMX6k4TqJr58G71vGOleNKUhT KWlXMInPPDutKxtje9hmV8cXt 8+HN6nj3ucjs90bS95fKD+PHR k EXJ1mRnnUOziXDTrhU3lOXukQ aI6MBMhNgCyaO27gUIrDDxeHy 9cdOxdrMpwUS8zORJdqvuca21 0 OoOfi4wkIYIgvAJjURxtSNV6B 06zu3R7NKJsTRAdPQK3gZI4pV 1hbGlnbjogbGVmdDsgdmVydGl j SLpyZBmeC614CWAicNboZcVxd YNrO8jgfbMLLA8oFoklqBC+PH EdUEB5hUwiSTzoOKCgwJ9aIEV p Z9u4AdPjNnZ9VAqqV8PfdrU3Y PZxlGMcXPHtwUJRnI2mnpucu1 lxbabmToDhYPLhAUg5DQm8ZZC s tFerVtGeVSH3UpL3YDG9sBJsj W8zwIdmbsnscG2fRhk+RklOOj wvdGQ+GQSpWFE8wLezRXgwDMK k iW3zATOnV0o8CdKkGvE5WRruA 3TbnjS8JFBdbIGfXJZkvHWSsT 7lxofpn9kmbokkDmJuDNRxGUl 0 DBa4GPNveRwzApQeTGW8GyW6Z KK9aPZikF4ijPwmimrdvW8jJo c+TVJOOjwvdGQ+RZAvBRK9aYv l GVupUCAnfL7dALRtC6m9InLgK qQ1FGjlA7CpadX3VHUhrTSxKP AabCPZkA8mrlgrm8bgsforNaZ w DTTeGHq2HTa5XBYunPmmNuNwP JZ0VdL9ZAD4nRIycJ1mbFwaam uswD2kZqg+NMJ8QEB3MQ11KX2 8 D8VbUjzdgPEctQI+PHRhYmxlI HdpZHRoPScxMDAlJyBzdHlsZT 8dXf8pYXWaUZQucJlkzFGtMmA j b2x (more content not included)... Normal [facility] 2019 Novel Coronavirus (CoVI D-19), SANDRA LCon 09-11-2020 SARS-CoV-2 (COVID-19) RNA SANDRA+probe Ql (Unsp spec) Not detected Invalid Interpretation Code Not Detected [facility] Comment on above: Order Comment: [id number] [phone] Result Comment: This nucleic acid amplification test was developed and its performance characteristics determined by [facility]. Nucleic acid amplification tests include RT- PCR and TMA. This test has not been FDA cleared or approved. This test has been authorized by FDA under an Emergency Use Authorization (EUA). This test is only authorized for the duration of time the declaration that circumstances exist justifying the authorization of the emergency use of in vitro diagnostic tests for detection of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 [facility] [address] [place] [address] Jorge Lanny Protein (U) [Mass/Vol] Negative Normal [facility] Comment on above: Performed By: #### JERRY RAMIREZRO #### [facility] [address] [place] [address] Jorge Lanny SPEC GRAVITY <=1.005 Normal 1.005-<=1. 025 [facility] Comment on above: Performed By: #### JERRY RAMIREZRO #### [facility] [address] [place] [address] Jorge Lanny UR MICRO IND INDICATED Normal [facility] Comment on above: Performed By: #### E CHELSIE, JERRYRO #### [facility] [address] [place], [place] [phone] Jorge Lanny Urobilinogen Qn (U) 0.2 EU/dl Normal [facility] Comment on above: Performed By: #### Arin HOLGUIN, JERRYRO #### [facility] [address] [place] [address] Jorge Lanny WBC (Bld) [#/Vol] Negative Normal NEGATIVE [facility] Comment on above: Performed By: #### Arin HOLGUIN, JERRYRO #### [facility] [address] [place] [address] Jorge Lanny LACTATE/LACTIC ACIDon 2018 Lactate [Moles/Vol] 1.6 mmol/L Normal 0.7-2.1 [facility] Comment on above: Performed By: #### L ACT #### [facility] [address] [place] [address] Jorge Lanny PROCALCITONINon 01-01-2019 PCT header 1 SEE BELOW Normal [facility] Comment on above: Result Comment: PCT <0.5ng/mL: Systemic infection (sepsis) is not likely, local bacterial infection possible, low risk for progression to severe systemic infection (severe sepsis) Performed By: #### JERRY RAMIREZRO #### [facility] [address] [place] [address] Jorge Lanny PCT header 2 SEE BELOW Normal [facility] Comment on above: Result Comment: PCT >/=0.5 and <2 ng/mL: Systemic infection (sepsis) is possible, moderate risk for progression to severe systemic infection (severe sepsis) Performed By: #### E CHELSIE, JERRYRO #### [facility] [address] [place] [address] Jorge Lanny PCT header 3 SEE BELOW Normal [facility] Comment on above: Result Comment: PCT >/=2.0 and <10 ng/mL: Systemic infection (sepsis) is likely, unless other causes are known, high risk for progession to severe systemic infection(severe sepsis) Performed By: #### GHULAM RAMIREZ #### [facility] [address] [place] [address] Jorge Ca PCT header 4 SEE BELOW Normal [facility] Comment on above: Result Comment: PCT >/= 10 ng/mL: Important systemic inflammatory response almost exclusively due to severe bacterial sepsis or septic shock, high likelihood of severe sepsis or septic shock Performed By: #### GHULAM RAMIREZ #### [facility] [address] [place] [address] Jorge Ca PROCALCITONIN <0.05 Normal 0.00-0.50 [facility] Comment on above: Performed By: #### GHULAM RAMIREZ #### [facility] [address] [place] [address] Jorge Ca PROF 14(COMP METB)on 019 Albumin [Mass/Vol] 3.7 g/dL Normal 3.5-5.0 [facility] Comment on above: Performed By: #### C RP, CMP #### [facility] [address] [place], [place] [phone] Jorge Ca Albumin/Globulin [Mass ratio] 0.9 {ratio} Normal [facility] Comment on above: Performed By: #### C RP, CMP #### [facility] [address] [place], [place] [address] Jorge Lanny ALP [Catalytic activity/Vol] 76 U/L Normal 38-126 [facility] Comment on above: Performed By: #### C RP, CMP #### [facility] [address] [place], [place] [phone] Jorge Lanny ALT [Catalytic activity/Vol] 23 U/L Normal 21-72 [facility] Comment on above: Performed By: #### C RP, CMP #### [facility] [address] [place], [place] [address] Jorgekendall Ca Anion gap [Moles/Vol] 12.7 mmol/L Normal Th [facility] Comment on above: Performed By: #### C RP, CMP #### [facility] [address] [address] Jorge Lanny AST [Catalytic activity/Vol] 22 U/L Normal 17-59 [facility] Comment on above: Performed By: #### C RP, CMP #### [facility] [address] [address] Jorge Lanny Bilirubin Ql (U) 0.3 mg/dL Normal 0.2-1.3 [facility] Comment on above: Performed By: #### C RP, CMP #### [facility] [address] [place] [address] Jorge Lanny Calcium [Mass/Vol] 9.5 mg/dL Normal 8.4-10.2 [facility] Comment on above: Performed By: #### C RP, CMP #### [facility] [address] [place] [address] Jorge Lanny Chloride [Moles/Vol] 106 mmol/L Normal 98-107 [facility] Comment on above: Performed By: #### C RP, CMP #### [facility] [address] [place] [address] Jorge Lanny CO2 [Moles/Vol] 26.4 mmol/L Normal 22.0-30.0 [facility] Comment on above: Performed By: #### C RP, CMP #### [facility] [address] [address] Jorge Lanny Creatinine [Mass/Vol] 1.18 mg/dL Normal 0.66-1.25 [facility] Comment on above: Performed By: #### C RP, CMP #### [facility] [address] [place], [place] [address] Jorge Lanny EGFR-AF KENYAN >60 Normal >=60 [facility] Comment on above: Performed By: #### C RP, CMP #### [facility] [address] [place] [address] Jorge Lanny EGFR-NON AF KENYAN >60 Normal >=60 [facility] Comment on above: Performed By: #### C RP, CMP #### [facility] [address] [phone] Jorge Lanny Globulin (S) [Mass/Vol] 4.1 g/dL Normal [facility] Comment on above: Performed By: #### C RP, CMP #### [facility] [address] [phone] Jorge Lanny Glucose [Mass/Vol] 101 mg/dL Normal 74-106 [facility] Comment on above: Performed By: #### C RP, CMP #### [facility] [address] [address] Jorge Lanny Potassium [Moles/Vol] 4.1 mmol/L Normal 3.4-5.0 [facility] Comment on above: Performed By: #### C RP, CMP #### [facility] [address] [place] [address] Jorge Lanny Protein [Mass/Vol] 7.8 g/dL Normal 6.1-8.2 [facility] Comment on above: Performed By: #### C RP, CMP #### [facility] [address] [place] [address] Jorge Lanny Sodium [Moles/Vol] 141 mmol/L Normal 137-145 [facility] Comment on above: Performed By: #### C RP, CMP #### [facility] [address] [place] [address] Jorge Lanny Urea nitrogen [Mass/Vol] 17.0 mg/dL Normal 9.0-20.0 [facility] Comment on above: Performed By: #### C RP, CMP #### [facility] [address] [place], [place] [address] Jorge Lanny Urea nitrogen/Creatinine [Mass ratio] 14.4 mg/mg Normal [facility] Comment on above: Performed By: #### C RP, CMP #### [facility] [address] [phone] Jorge Lanny [facility] 23 mm/hr Critically high <=15 [facility] Comment on above: Performed By: #### S EDR #### [facility] [address] [place] [address] Jorge Lanny SEDRH METHOD AND NORMAL CH GISSELLE 06/04/15. RESULTS ARE NOT AFFECTED BY HEMATOCRIT. Normal [facility] Comment on above: Performed By: #### S EDR #### [facility] [address] [place], [place] [phone] Jorge Lanny URINE MICROSCOPIC ONLYon Bacteria LM.HPF (Urine sed) [#/Area] NONE SEEN Normal NONE SEEN [facility] Comment on above: Performed By: #### E CHELSIE UMICRO #### [facility] [address] [place] [address] Jorge Lanny CAST NONE SEEN Normal NONE SEEN [facility] Comment on above: Performed By: #### E CHELSIE UMICRO #### [facility] [address] [place] [address] Jorge Lanny Crystals LM Nom (Urine sed) NONE SEEN Normal NONE SEEN [facility] Comment on above: Performed By: #### Arin HOLGUIN UMICRO #### [facility] [address] [place] [address] Jorge Lanny CULTURE NOT INDICATED Normal [facility] Comment on above: Performed By: #### Arin HOLGUIN UMICRO #### [facility] [address] [place] [address] Jorge Lanny Epithelial cells LM.HPF (Urine sed) [#/Area] RARE Normal [facility] Comment on above: Performed By: #### Arin HOLGUIN UMICRO #### [facility] [address] [place] [address] Jorge Lanny MUCOUS NONE SEEN Normal NONE SEEN [facility] Comment on above: Performed By: #### Arin HOLGUIN UMICRO #### [facility] [address] [place] [address] Jorge Lanny RBC (U) [#/Vol] 20-50 Normal 0-2 [facility] Comment on above: Performed By: #### Arin HOLGUIN UMICRO #### [facility] [address] [address] Jorge Lanny WBC (Bld) [#/Vol] 0-2 Normal NONE SEEN [facility] Comment on above: Performed By: #### E GHULAM HOLGUIN #### [facility] [address] [phone] Jorge Ca US KIDNEYSon 01-01-2019 US KIDNEYS Patient: WILLIE EASTMAN Exam Date: 01/01/2019 : 1975 Gender:M Ordering : DR ALEXX KAY . Admission #: [id number] Family : DR BHATT JOHNSandro Order #: [id number] CLICK HERE TO VIEW EXAM RADIOLOGY REPORT PROCEDURE: ULTRASOUND KIDNEYS COMPARISON: CT ABD/PELVIS WO CON, 12/26/2018. INDICATIONS: Personal history of urinary calculi TECHNIQUE: Ultrasound examination was performed of the kidneys and bladder. FINDINGS: RIGHT KIDNEY: Slightly prominent renal pelvis without convincing dilation of the calices. Several small nonobstructing stones within the kidney. Color Doppler demonstrates blood flow within the kidney. Kidney: 12.1 x 5.1 x 5.8 cm LEFT KIDNEY: Contains several small nonobstructing stones. No hydronephrosis. Color Doppler demonstrates blood flow within the kidney. Kidney: 12.3 x 6.7 x 6.4 cm BLADDER: No visible wall thickening, mass, or calculus. . CONCLUSION: 1. Bilateral nonobstructing nephrolithiasis. 2. Slightly prominent right renal pelvis without dilation of the calices. A partially obstructing ureteral stone cannot be excluded completely excluded. Dictated by: Jany Nobles M.D. on 01/01/2019 at 16:00 Approved by: Jany Nobles M.D. on 01/01/2019 at 16:05 Normal [facility] CBC AUTO DIFFon 12-26-2018 Basophils (Bld) [#/Vol] 0.0 103/ul Normal 0.0-0.1 [facility] Comment on above: Performed By: #### C BC #### [facility] [address] [phone] Jorge Diegoen Basophils/100 WBC (Bld) 0.5 % Normal 0.2-2.0 [facility] Comment on above: Performed By: #### C BC #### [facility] [address] [phone] Jorge Lanny Eosinophils (Bld) [#/Vol] 0.3 103/ul Normal 0.0-0.7 [facility] Comment on above: Performed By: #### C BC #### [facility] [address] [phone] Jorge Lanny Eosinophils/100 WBC (Bld) 3.1 % Normal 0.9-7.0 [facility] Comment on above: Performed By: #### C BC #### [facility] [address] [place], [place] [phone] Jorge Lanny Erythrocyte distribution width (RBC) [Ratio] 12.8 % Normal 11.0-15.0 [facility] Comment on above: Performed By: #### C BC #### [facility] [address] [place], [place] [phone] Jorge Lanny Hematocrit (Bld) [Volume fraction] 42.2 % Normal 42.0-54.0 [facility] Comment on above: Performed By: #### C BC #### [facility] [address] [place], [place] [address] Jorge Lanny Hemoglobin (Bld) [Mass/Vol] 13.9 g/dL Critically low 14.0-18.0 [facility] Comment on above: Performed By: #### C BC #### [facility] [address] [place], [place] [address] Jorge Lanny IG # 0.04 10e3/ul Critically high 0.00-0.03 [facility] Comment on above: Performed By: #### C BC #### [facility] [address] [place], [place] [address] Jorge Lanny IG % 0.5 % Normal 0.0-0.5 [facility] Comment on above: Performed By: #### C BC #### [facility] [address] [place], [place] [phone] Jorge Lanny Lymphocytes (Bld) [#/Vol] 2.7 103/ul Normal 1.2-3.8 [facility] Comment on above: Performed By: #### C BC #### [facility] [address] [place], [place] [address] Jorge Lanny Lymphocytes/100 WBC (Bld) 32.5 % Normal 20.5-60.0 [facility] Comment on above: Performed By: #### C BC #### [facility] [address] [place], [place] [address] Jorge Lanny MANUAL DIFF REQ NO Normal [facility] Comment on above: Performed By: #### C BC #### [facility] [address] [place], [place] [address] Jorge Lanny MCH (RBC) [Entitic mass] 29.1 pg Normal 25.9-34.0 [facility] Comment on above: Performed By: #### C BC #### [facility] [address] [place] [address] Jorge Lanny MCHC (RBC) [Mass/Vol] 32.9 g/dL Normal 29.9-35.2 [facility] Comment on above: Performed By: #### C BC #### [facility] [address] [place] [address] Jorge Lanny MCV (RBC) [Entitic vol] 88.5 fL Normal 80.0-94.0 [facility] Comment on above: Performed By: #### C BC #### [facility] [address] [place] [address] Jorge Lanny Monocytes (Bld) [#/Vol] 0.7 103/ul Normal 0.3-0.8 [facility] Comment on above: Performed By: #### C BC #### [facility] [address] [place] [address] Jorge Lanny Monocytes/100 WBC (Bld) 8.6 % Normal 1.7-12.0 [facility] Comment on above: Performed By: #### C BC #### [facility] [address] [place], [place] [address] Jorge Lanny Neutrophils (Bld) [#/Vol] 4.6 103/ul Normal 1.4-6.5 [facility] Comment on above: Performed By: #### C BC #### [facility] [address] [place], [place] [address] Jorge Lanny Neutrophils/100 WBC (Bld) 54.8 % Normal 43.0-75.0 [facility] Comment on above: Performed By: #### C BC #### [facility] [address] [place], [place] [address] Jorge Lanny Platelet mean volume (Bld) [Entitic vol] 9.8 fL Normal 9.5-13.5 [facility] Comment on above: Performed By: #### C BC #### [facility] [address], [place] [address] Jorge Lanny Platelets (Bld) [#/Vol] 292 103/ul Normal 150-450 [facility] Comment on above: Performed By: #### C BC #### [facility] [address] [place], [place] [address] Jorge Lanny RBC (Bld) [#/Vol] 4.77 106/ul Normal 4.70-6.10 [facility] Comment on above: Performed By: #### C BC #### [facility] [address], [place] [address] Jorge Lanny WBC (Bld) [#/Vol] 8.4 103/ul Normal 4.0-11.0 [facility] Comment on above: Performed By: #### C BC #### [facility] [address] [place] [address] ABD/PELVIS WO CONon 12-26 CT ABD/PELVIS WO CON Patient: PATRICIA EASTMAN Exam Date: 12/26/2018 : 1975 Gender:M Ordering : SUNI DUENAS . Admission #: [id number] Family : DR JHON LIND D.O. Order #: [id number] CLICK HERE TO VIEW EXAM RADIOLOGY REPORT PROCEDURE: CT ABDOMEN AND PELVIS WITHOUT CONTRAST COMPARISON: CT ABD/PELVIS WO CON, 10/13/2014. INDICATIONS: Acute right flank pain, nausea, decrease in urination, history of kidney stones TECHNIQUE: Axial, Coronal, and Sagittal CT images of the abdomen and pelvis were created without IV contrast material. DOSE: 1297 mGycm FINDINGS: KIDNEY - RIGHT: Punctate nonobstructing nephrolithiasis. No hydronephrosis. URETER - RIGHT: No calcifications or abnormal dilation. KIDNEY - LEFT: Punctate nonobstructing nephrolithiasis. No hydronephrosis URETER - LEFT: No calcifications or abnormal dilation. URINARY BLADDER: No calculus, visible focal wall thickening, or lesion. LUNG BASES: No visible pulmonary or pleural disease. LIVER: No enlargement, atrophy, abnormal density, or significant focal lesion. BILIARY: No visible dilatation or calcification. PANCREAS: No lesion, fluid collection, ductal dilatation, or atrophy. SPLEEN: No enlargement or focal lesion. ADRENALS: No mass or enlargement. BOWEL/MESENTERY: No visible mass, obstruction, or bowel wall thickening. AORTA/VASCULAR: No aneurysm. RETROPERITONEUM: No mass or adenopathy. LYMPH NODES: No adenopathy. PELVIC ORGANS: No visible mass. Pelvic organs appropriate for patient age. ABDOMINAL WALL: No mass or hernia. BONES: No bony lesion or fracture. CONCLUSION: 1. No obstructive uropathy Dictated by: Holli Bianchi M.D. on 12/26/2018 at 20:31 Approved by: Holli Bianchi M.D. on 12/26/2018 at 20:36 Normal [facility] ER URINE PROFILEon 9 Bilirubin [Mass/Vol] Negative Normal NEGATIVE [facility] Comment on above: Performed By: #### GHULAM RAMIREZ #### [facility] [address] [place], [place] [id number] Jroge Lanny BLOOD SMALL Normal NEGATIVE [facility] Comment on above: Performed By: #### GHULAM RAMIREZ #### [facility] [address], [place] [address] Jorge Lanny Clarity (U) CLEAR Normal [facility] Comment on above: Performed By: #### GHULAM RAMIREZ #### [facility] [address], [place] [address] Jorge Lanny Color (U) YELLOW Normal YELLOW [facility] Comment on above: Performed By: #### GHULAM RAMIREZ #### [facility] [address] [place] [phone] Jorge Lanny ERUAHD A micrscopic examina tion will be performed if indicated. Normal [facility] Comment on above: Performed By: #### GHULAM RAMIREZ #### [facility] [address] [place] [address] Jorge Lanny Glucose [Mass/Vol] Negative Normal NEGATIVE [facility] Comment on above: Performed By: #### JERRY RAMIREZRO #### [facility] [address] [place] [address] Jorge Lanny Ketones Ql (U) Negative Normal NEGATIVE [facility] Comment on above: Performed By: #### JERRY RAMIREZRO #### [facility] [address] [place] [address] Jorge Lanny Nitrite Ql (U) Negative Normal NEGATIVE [facility] Comment on above: Performed By: #### JERRY RAMIREZRO #### [facility] [address] [place] [address] Jorge Lanny pH (Bld) 5.5 Normal 5-9 [facility] Comment on above: Performed By: #### JERRY RAMIREZRO #### [facility] [address] [place] [address] Jorge Lanny Protein (U) [Mass/Vol] Negative Normal [facility] Comment on above: Performed By: #### JERRY RAMIREZRO #### [facility] [address] [place] [address] Jorge Lanny SPEC GRAVITY >=1.030 Normal 1.005-<=1. 025 [facility] Comment on above: Performed By: #### JERRY RAMIREZRO #### [facility] [address] [place] [address] Jorge Lanny UR MICRO IND INDICATED Normal [facility] Comment on above: Performed By: #### MARLENE RAMIREZICRO #### [facility] [address] [place] [address] Jorge Lanny Urobilinogen Qn (U) 0.2 EU/dl Normal [facility] Comment on above: Performed By: #### GHULAM RAMIREZ #### [facility] [address], [place] [address] Jorge Lanny WBC (Bld) [#/Vol] Negative Normal NEGATIVE [facility] Comment on above: Performed By: #### E GHULAM HOLGUIN #### [facility] [address], [place] [address] Jorge Lanny PROF CHEM 8 (BAS METB)on Anion gap [Moles/Vol] 14.9 mmol/L Normal [facility] Comment on above: Performed By: #### B MP #### [facility] [address] [place] [phone] Jorge Lanny Calcium [Mass/Vol] 8.9 mg/dL Normal 8.4-10.2 [facility] Comment on above: Performed By: #### B MP #### [facility] [address] [phone] Jorge Lanny Chloride [Moles/Vol] 105 mmol/L Normal 98-107 [facility] Comment on above: Performed By: #### B MP #### [facility] [address] [phone] Jorge Lanny CO2 [Moles/Vol] 23.9 mmol/L Normal 22.0-30.0 [facility] Comment on above: Performed By: #### B MP #### [facility] [address] [phone] Jorge Lanny Creatinine [Mass/Vol] 1.05 mg/dL Normal 0.66-1.25 [facility] Comment on above: Performed By: #### B MP #### [facility] [address], [place] [address] Jorge Lanny EGFR-AF KENYAN >60 Normal >=60 [facility] Comment on above: Performed By: #### B MP #### [facility] [address], [place] [address] Jorge Lanny EGFR-NON AF KENYAN >60 Normal >=60 [facility] Comment on above: Performed By: #### B MP #### [facility] [address] [phone] Jorge Lanny Glucose [Mass/Vol] 102 mg/dL Normal 74-106 [facility] Comment on above: Performed By: #### B MP #### [facility] [address] [place], [place] [phone] Jorge Lanny Potassium [Moles/Vol] 3.8 mmol/L Normal 3.4-5.0 [facility] Comment on above: Performed By: #### B MP #### [facility] [address] [place], [place] [phone] Jorge Lanny Sodium [Moles/Vol] 140 mmol/L Normal 137-145 [facility] Comment on above: Performed By: #### B MP #### [facility] [address] [place] [address] Jorge Lanny Urea nitrogen [Mass/Vol] 17.0 mg/dL Normal 9.0-20.0 [facility] Comment on above: Performed By: #### B MP #### [facility] [address] [place] [address] Jorge Lanny Urea nitrogen/Creatinine [Mass ratio] 16.2 mg/mg Normal [facility] Comment on above: Performed By: #### B MP #### [facility] [address] [place], [place] [phone] Jorge Lanny URINE MICROSCOPIC ONLYon Bacteria LM.HPF (Urine sed) [#/Area] NONE SEEN Normal NONE SEEN [facility] Comment on above: Performed By: #### GHULAM RAMIREZ #### [facility] [address] [place], [place] [phone] Jorge Lanny CAST NONE SEEN Normal NONE SEEN [facility] Comment on above: Performed By: #### GHULAM RAMIREZ #### [facility] [address] [place], [place] [phone] Jorge Lanny Crystals LM Nom (Urine sed) NONE SEEN Normal NONE SEEN [facility] Comment on above: Performed By: #### GHULAM RAMIREZ #### [facility] [address] [place], [place] [phone] Jorge Lanny CULTURE NOT INDICATED Normal [facility] Comment on above: Performed By: #### E RUR, UMICRO #### [facility] [address], [place] [address] Jorge Ca Epithelial cells LM.HPF (Urine sed) [#/Area] RARE Normal [facility] Comment on above: Performed By: #### E RUR, UMICRO #### [facility] [address], [place] [address] Jorge Ca MUCOUS NONE SEEN Normal NONE SEEN [facility] Comment on above: Performed By: #### E RUR, UMICRO #### [facility] [address], [place] [address] Jorge Ca RBC (U) [#/Vol] 5-10 Normal 0-2 [facility] Comment on above: Performed By: #### E RUR, UMICRO #### [facility] [address] [place] [address] Jorge Ca WBC (Bld) [#/Vol] NONE SEEN Normal NONE SEEN [facility] Comment on above: Performed By: #### E RUR, UMICRO #### [facility] [address] [place] [address] Jorge Ca Coding Summary.on 08-19-2017 Coding Summary. CODING DATE: 018 FINAL [facility] STATUS: Home (Routine DC) PAYOR: [facility] [place] [facility] DESCRIPTION 8[address] CT and CTA with Contrast Composite ADMIT DX: REASON FOR VISIT DX: R10.9 Unspecified abdominal pain FINAL DX: PRINCIPAL: N20.0 Calculus of kidney SECONDARY: PYMT PROC APC STAT DESCRIPTION DOCTOR NAME DATE NOTE: The code number assigned matches the documented diagnosis and / or procedure in the patient's chart. However, the narrative phrase printed from the coding software may appear abbreviated, or result in slightly different terminology. Coded By: Deepika Nava Date Saved: 08/19/2017 10:26 am Normal [facility] Auto Diffon 08-18-2017 Basophils Auto #/vol (Bld) 0.0 E9/L Normal 0.0-0.[address] [facility] Comment on above: Order Comment: Order Added by Petar Expert. Performed By: #### 2 465320, 5494440, 4868547, 2969388, 85128008, 4658568 ####[facility] [address] [place] [address] Basophils Auto #/vol (Bld) 0.6 % Normal 0.0-2.[address] [facility] Comment on above: Order Comment: Order Added by Petar Expert. Performed By: #### 2 744886, 0823228, 4211108, 5478705, 62397397, 6394273 ####[facility] [address] [place] [address] Eosinophils 0.2 E9/L Normal 0.0-0.[address] [facility] Comment on above: Order Comment: Order Added by Petar Expert. Performed By: #### 2 992620, 7457875, 1861599, 4346607, 87188912, 5790559 ####[address] [address] Eosinophils/100 leukocytes 2.9 % Normal 0.0-8.[address] [facility] Comment on above: Order Comment: Order Added by Petar Expert. Performed By: #### 2 820754, 8307259, 7309329, 0448561, 89198394, 2043661 ####[facility] [address] [place] [address] Lymphocytes 2.4 E9/L Normal 1.0-4.[address] [facility] Comment on above: Order Comment: Order Added by Petar Expert. Performed By: #### 2 861847, 4945989, 9447318, 4624537, 96573344, 3300319 ####[address] [place] [address] Lymphocytes/100 leukocytes 29.5 % Normal 14.0-50.[address] [facility] Comment on above: Order Comment: Order Added by Petar Expert. Performed By: #### 2 734337, 5816342, 7403593, 2884184, 71362222, 6887603 ####[facility] [address] [place] [address] Monocytes 0.5 E9/L Normal 0.2-1.[address] [facility] Comment on above: Order Comment: Order Added by Discern Expert. Performed By: #### 2 188363, 2111844, 0743984, 0050630, 91860672, 6053068 ####[facility] [address] [place] [address] Monocytes/100 leukocytes 5.6 % Normal 4.0-14.[address] [facility] Comment on above: Order Comment: Order Added by Petar Expert. Performed By: #### 2 056757, 3781483, 6739603, 8598364, 83069834, 3316456 ####[address] [place] [address] Neutrophils 5.1 E9/L Normal 2.0-7.[address] [facility] Comment on above: Order Comment: Order Added by Petar Expert. Performed By: #### 2 381069, 5250468, 4774457, 0747939, 92493770, 6002651 ####[address] [address] Neutrophils/100 leukocytes 61.4 % Normal 36.0-75.[address] [facility] Comment on above: Order Comment: Order Added by Petar Expert. Performed By: #### 2 240050, 0929171, 1520728, 6477380, 29676192, 8955329 ####[facility] [address] [place] [address] BMPon 08-18-2017 BUN/Creatinine Ratio 20 No Units Normal 10-20 [facility] Comment on above: Performed By: #### 2 791975, 9314342, 0133242, 6173289, 04277041, 6180369 ####[facility] [address] [place] [address] Creatinine 0.9 mg/dL Normal 0.5-1.[address] [facility] Comment on above: Performed By: #### 2 550268, 6934797, 1006918, 7348896, 24589750, 8254349 ####[facility] [address] [place] [address] Urea nitrogen 18 mg/dL Normal 5-21 [facility] Comment on above: Performed By: #### 2 010537, 0994022, 6537203, 0284109, 97471571, 4270926 ####[facility] [address] [place] [address] Anion gap 10 mmol/L Normal 6-[address] [facility] Comment on above: Performed By: #### 2 634825, 2033138, 9213508, 7292044, 08276640, 3807081 ####[facility] [address] [place] [address] Calcium 9.2 mg/dL Normal 8.9-11.[address] [facility] Comment on above: Performed By: #### 2 171801, 8400573, 9817980, 4304624, 64302496, 9637923 ####[facility] [address] [place] [address] Chloride 105 mmol/L Normal 101-[address] [facility] Comment on above: Performed By: #### 2 713086, 7037892, 8276187, 0955368, 94644050, 5593039 ####[facility] [address] [place] [address] CO2 27 mmol/L Normal 21-[address] [facility] Comment on above: Performed By: #### 2 816687, 5579131, 0234255, 6755152, 25295865, 9730640 ####[facility] [address] [place] [address] Glucose mass conc 135 mg/dL Normal 55-[address] [facility] Comment on above: Result Comment: If t his glucose result represents a fasting glucose, interpretation should refer to the following reference range: 55-99 mg/dL Performed By: #### 2 255296, 5068984, 3195799, 0079286, 38777603, 8407786 ####[facility] [address] [place] [address] Potassium molar conc 3.6 mmol/L Normal 3.5-5.3 [facility] Comment on above: Performed By: #### 2 005572, 4171856, 1085501, 1961425, 47406512, 7918858 ####[facility] [address] [place] [address] Sodium 138 mmol/L Normal 135-[address] [facility] Comment on above: Performed By: #### 2 946078, 3079132, 3094827, 4616100, 98140912, 6919831 ####[facility] [address] [place] [address] CBC w/ Auto Diffon 8 Erythrocyte distribution width Auto Ratio (RBC) 13.4 % Normal 10.9-14.[address] [facility] Comment on above: Performed By: #### 2 519516, 6995950, 9011005, 2904222, 48042071, 3399796 ####[facility] [address] [place] [address] Erythrocytes (RBC) 5.4 E12/L Normal 4.3-5.[address] [facility] Comment on above: Performed By: #### 2 255470, 1913246, 9517738, 0954547, 93719557, 4196136 ####[address] [place] [address] Hematocrit (HCT) 46.8 % Normal 37.7-49.0 [facility] Comment on above: Performed By: #### 2 689739, 1921538, 5174000, 5263473, 23843763, 0899018 ####[facility] [address] [place] [address] Hemoglobin mass conc (Bld) 15.6 g/dL Normal 13.5-17.[address] [facility] Comment on above: Performed By: #### 2 378382, 0647583, 0910859, 4244446, 22152279, 1334246 ####[address] [place] [address] MCH 29.1 pg Normal 27.0-34.[address] [facility] Comment on above: Performed By: #### 2 668806, 3158050, 5579378, 0300516, 44461158, 7229524 ####[facility] [address] [place] [address] MCHC mass conc (RBC) 33.4 g/dL Normal 31.4-39.3 [facility] Comment on above: Performed By: #### 2 597015, 9651154, 4568183, 7070647, 93110028, 0277607 ####[address] [place] [address] MCV 87.1 fL Normal 80.0-100.[address] [facility] Comment on above: Performed By: #### 2 867998, 8043495, 0980284, 7448061, 22460700, 3886337 ####[address] [address] Platelet mean volume (PMV) 7.6 fL Normal 6.4-10.[address] [facility] Comment on above: Performed By: #### 2 564898, 4421242, 9108155, 9584592, 62763075, 2933145 ####[address] [place] [address] Platelets 302.0 E9/L Normal 150.0-500. [address] [facility] Comment on above: Performed By: #### 2 401936, 6618849, 8360821, 1225030, 12791282, 7170954 ####[address] [place] [address] WBC (Leukocytes) 8.3 E9/L Normal 4.0-11.0 [facility] Comment on above: Performed By: #### 2 288495, 9267074, 9201524, 8454271, 00883180, 1183616 ####[address] [address] CTA Cheston 08-18-2017 CTA Chest Exam Date/Time:2017 10:58 EDTReason for Exam:Pulmonary Emboli (PE)ReportIMPRESSION: NO CT EVIDENCE OF PULMONARY EMBOLISM. NO CHEST ABNORMALITY IS EVIDENT. CLINICAL HISTORY: Pulmonary Emboli (PE). Right-sided pain.COMMENT: Axial images were obtained after the rapid injection of IV contrast withnarrow collimation and reconstructed at a narrow interval. Coronal and sagittalreconstructions were performed. On the PACS, images were reviewed in cine displayand using MIP postprocessing. The pulmonary arteries are contrast opacified and no intraluminal filling defects arenoted. The thoracic aorta is normal in diameter, without evidence of aneurysm. Nopericardial effusion is noted. There is no mediastinal nor hilar lymphadenopathy. There are dependent atelectatic changes in both lungs posteriorly. No infiltration,no lung mass, nor pleural effusion is evident. There is an intraspinal electrodewithin the lower thoracic spinal canal, extending to the T8 level.All CT scans at this facility use dose modulation, iterative reconstruction, and/orweight based dosing when appropriate to reduce radiation dose to as low as reasonablyachievable. * FINAL REPORT Dictated: 08/18/2017 11:10 am Neil Wood M.D. Signed (Electronic Signature): 08/18/2017 11:10 am Signed by: Neil Wood M.D. Transcribed by: PEG Technologist: SBTechnical CommentsGFR (mL/min/1/73m2) >60Contrast: Isovue 370Contrast amount in ml's: [address] [facility] Cardiac 0 Hr.on 08-18-2017 CREATINE KINASE.MB:CCNC:PT:SER/ PLAS:QN:EIA 0.7 ng/mL Normal 0.3-4.[address] [facility] Comment on above: Performed By: #### 1 0496926 ####[facility] [address] [place] [address] Myoglobin 13 ng/mL Normal <=[address] [facility] Comment on above: Performed By: #### 1 6975378 ####[facility] [address] [place] [address] Troponin I.cardiac mass conc ng/mL Normal <=0.[address] [facility] Comment on above: Result Comment: New Troponin Assay 09/11/13ROC [place] Cutoff value > or = 0.03 ng/mL in conjunction with clinical conditions of myocardial infarction.([email or web address]/[email or web address]) Performed By: #### 1 [id number] ####[facility] [address] [place] [address] Creatine kinase (CK) 45 Int._Unit/L Normal 14-[address] [facility] Comment on above: Performed By: #### 1 4052094 ####[facility] [address] [place] [address] Discharge Instructionson Discharge Instructions Patient arri ve to transport patient home. Dischagre instructions complete, RR equal and non labored and nurs eeducated to make follow up and return for worsenign symptoms. Patinet provided with strainer. Normal [facility] Comment on above: Result Comment: Elec tronically Signed By: Danika SIMON, Barber Aguilar\.br\Date and Time Signed: 08/18/17 14:39 EDT ED Clinical Summaryon 2017 ED Clinical Summary (Inserted Image. Asmita ble to display) [address] [address] ED Clinical SummaryPerson Information Name: CARMELITA EASTMAN/Bandar Age: 41 Years : 1975 12:00 AM Sex: Male Language:[place] Islander PCP: MILLER BUNN DO Marital Status: Visit Id: Visit Reason:Nausea; Flank pain; LOW BACK RIGHT SIDE PAIN Speciality: Acuity: 3 Enc Type: Emergency Med Service: Emergency Arrival:08/18/2017 8:03 AM Discharge: 08/18/2017 2:40 PM LOS: 000 06:37 Checkin:08/18/2017 8:03 AM Checkout: 08/18/2017 2:40 PM Dispo Type: Home (Routine DC) EVENTS:Event Name Event Status Request Date/Time Start Date/Time Complete Date/Time Arrive Complete 08/18/2017 8:03 AM 08/18/2017 8:03 AM 08/18/2017 8:03 AM Document Home Meds Request 08/18/2017 8:03 AM Triage Complete 08/18/2017 8:03 AM 08/18/2017 8:21 AM 08/18/2017 8:21 AM Bed Assign Complete 08/18/2017 8:08 AM 08/18/2017 8:08 AM 08/18/2017 8:[address] Exam Complete 08/18/2017 8:08 AM 08/18/2017 8:09 AM 08/18/2017 8:09 AM RN Exam Complete 08/18/2017 8:08 AM 08/18/2017 8:40 AM 08/18/2017 8:40 AM Registration Complete 08/18/2017 8:09 AM 08/18/2017 9:27 AM 08/18/2017 9:[address] Exam Complete 08/18/2017 8:11 AM 08/18/2017 8:11 AM 08/18/2017 8:[address] Complete 08/18/2017 8:17 AM 08/18/2017 8:37 AM 08/18/2017 8:49 AM Meds Admin Request 08/18/2017 8:17 AM Pending Labs Complete 08/18/2017 8:17 AM 08/18/2017 9:04 AM Lab Complete 08/18/2017 8:17 AM 08/18/2017 9:04 AM Urine Collect Complete 08/18/2017 8:17 AM 08/18/2017 9:04 AM Pending Labs Complete 08/18/2017 8:30 AM 08/18/2017 8:30 AM 08/18/2017 8:52 AM Lab Complete 08/18/2017 8:30 AM 08/18/2017 8:30 AM 08/18/2017 8:52 AM Pending Labs Complete 08/18/2017 8:39 AM 08/18/2017 8:39 AM 08/18/2017 8:39 AM Lab Complete 08/18/2017 8:39 AM 08/18/2017 8:39 AM 08/18/2017 8:39 AM Reg Complete Request 08/18/2017 9:27 AM Pending Labs Complete 08/18/2017 9:33 AM 08/18/2017 9:33 AM 08/18/2017 9:33 AM Meds Admin Complete 08/18/2017 9:40 AM 08/18/2017 9:[address] Complete 08/18/2017 10:31 AM 08/18/2017 10:45 AM 08/18/2017 10:58 AM EKG Complete 08/18/2017 10:32 AM 08/18/2017 10:42 AM Pending Labs Complete 08/18/2017 10:33 AM 08/18/2017 1:27 PM Meds Admin Complete 08/18/2017 10:57 AM 08/18/2017 11:43 AM Meds Admin Complete 08/18/2017 12:17 PM 08/18/2017 12:29 PM Discharge Complete 08/18/2017 12:30 PM 08/18/2017 2:40 PM 08/18/2017 2:40 PM Transfer Complete 08/18/2017 2:40 PM 08/18/2017 2:40 PM 08/18/2017 2:40 PM ADDRESS:[address] [place] [phone] PHYS DOC NOTES: MEDICAL INFORMATION: Prescriptions Given:Prescription Display dicyclomine (Bentyl 20 mg Tab) 20 mg = 1 tab(s), Oral, QID, PRN As needed for pain or spasm, X 7 day(s), # 28 tab(s), Refills(s) 0 ondansetron (Zofran ODT 8 mg Tab-Dis) 8 mg = 1 tab(s), Oral, q8hr, PRN Nausea, # 10 tab(s), Refills(s) 1 orphenadrine (orphenadrine 100 mg ER Tab) 100 mg = 1 tab(s), Oral, BID, PRN as needed for pain, X 10 day(s), # 20 tab(s), Refills(s) 0 PATIENT EDUCATION INFORMATION: Instructions:Flank Pain, Lkwo-to-Hysm; Urine Strainer; Kidney Stones Follow up:With: Address: When: Fito Fortune [address] [place] [address] [place] [address] Business (1) Within 5 to 7 days Comments: Call physician if symptoms worsen Return to ED if symptoms worsen With Dr. Fortune regarding her kidney stones. With: Address: When: [place] [address] Business (1) In 3 days 08/21/2017 Comments: Call physician if symptoms worsen Return to ED if symptoms worse DIAGNOSIS:1:Right flank pain; 2:Right kidney stone Normal [facility] ED Note-Physicianon 08-19-19 ED Note-Physician Basic Information Ti me Seen: Maddy Rebolledo DO 08/18/2017 08:11Chief Complaint pt. states 0230 this morning started with R flank pain and nausea. pt. states hx: kidney stones. he does state he is urinating less, but denies other urinary changes. denies further c/o.History of Present Illness Pt is a 41YOM who presented with right sided flank pain just below the rib cage. Onset was at 2:30am this morning and has been a constant severe pressure feeling and pain since then rated a +7/10. Other symptoms include nausea and sweating from the pain. He denies any radiation of the pain. Pt has had decreased urination the past couple of days but denies any abnormal discharge or dysuria and has had normal bowel movements. The Pt has a history of kidney stones and says he has similar symptoms to previous occurrences. He has found no alleviating or aggravating factors. He denies a history of cholecystitis or appendicitis. He has had multiple inguinal hernias treated surgically in the past and had a trauma in 2007 in which he is seen by pain management for injections intermittently. He denies alcohol intake, tobacco use, or recreational substances. Reviewed by Dr. RebolledoReview of Systems Constitutional: mild sweats and nausea, fever, no chills,, no weakness Skin: no Jaundice, no rash, no lesions, nopetechiae ENMT: no ear pain, no sore throat, no congestion, no hoarseness Respiratory: no shortness of breath, no cough, no orthopnea, no wheezing Cardiovascular: no chest pain, no palpitations, no edema Gastrointestinal: severe pain and constant pressure in RUQ, mild nausea, no vomiting, no diarrhea, no GI bleeding Genitourinary: decreased urination, no dysuria, no hematuria, no discharge, no pain Musculoskeletal: severe right sided flank pain, no back pain, no trauma Neurologic: no headache, no dizziness, no numbness, no weakness Additional ROS info: Except as noted in the above Review of Systems and in the History of Present Illness all other systems have been reviewed and are negative or noncontributory. Reviewed by Dr. RebolledoPhysical Exam Vitals & Measurements T: 36.7 ?C (Oral) HR: 86(Peripheral) RR: 20 BP: 153/81 SpO2: 97% HT: 175 cm WT: 118 kg BMI: 38.53 General: Pt laying on bed during exam showing moderate discomfort but is cooperative and alert during exam Skin: warm, dry, no pallor Head: no trauma, normocephalic Neck: Trachea midline, no adenopathy, no tenderness Eye: normal conjunctiva, sclera clear ENMT: oral mucosa moist, no pharyngeal erythema or exudate Cardiovascular: regular rate and rhythm, normal peripheral perfusion Respiratory: Lungs CTA, respirations non labored Chest wall: no deformity. Gastrointestinal: Nontender, BSx4, mild deep costovertebral angle tenderness in right lumbar region, right lumbar paravertebral tenderness, right lower rib tenderness. soft, non distended, no guarding. Back: No tenderness, Normal ROM, Normal alignment. No midline bony tenderness of the spine. Nerve stimulator felt subcutaneously under the skin in the lumbar area. Extremities: no deformity, no trauma Neurological: oriented x 3, LOC appropriate for age, motor strength equal & normal bilaterally no facial weakness speech normal Psychiatric: cooperative, affect appropriate for age, normal judgement, normal psychiatric thoughts. Reviewed by Dr. RebolledoMedical Decision Making The patient records reviewed. Pain management discussed with the patient. Evaluation and care plan discussed with the patient.Assessment/Plan 1. Right flank pain 2. Right kidney stone Orders: orphenadrine, 60 mg = 2 mL, Injection, IV Push, Once, Stop date 08/18/17 12:17:00 EDT, STAT, Start date 08/18/17 12:17:00 EDT Sodium Chloride 0.9% intravenous solution 1,000 mL, 1,000 mL, IV, 125 mL/hr, STAT, Start date 08/18/17 8:16:00 EDT, 8 hour(s), Total volume (mL): 1,000 Automated Diff Basic Metabolic Panel Cardiac 0 Hr. Cardiac 3 Hr. Cardiac 6 Hr. Cardiac 9 Hr. CBC w/ Auto Diff CT Abdomen/Pelvis w/o Contrast CTA Chest ECG 12 Lead Adult eGFR Extra Blue Tube Extra SST Tube Hepatic Function Panel Lipase Level NPO Diet UA With Cult ReflexMedications Administered Given NS 1000 ml Bolus 1,000 mL, 1000 mL, IV ketorolac 30 mg/mL Inj 1 mL, 30 mg, IV Push Levsin 0.125 mg SL Tab, 0.25 mg, SubLingual Zofran 4 mg/2 mL Injection, 8 mg, IV PushDisposition Plan Patient Discharge Condition Improved Discharge Disposition Discharge home Discharge Prescription List Prescriptions Bentyl 20 mg Tab, 20 mg= 1 tab(s), Oral, QID, PRN orphenadrine 100 mg ER Tab, 100 mg= 1 tab(s), Oral, BID, PRN Zofran ODT 8 mg Tab-Dis, 8 mg= 1 tab(s), Oral, q8hr, PRN, 1 refills Follow-up With When Contact Information MILLER BUNN In 3 days 08/21/[address] EDT [address] [place] [address]- Business (1) Additional Instructions: Call physician if symptoms worsen Return to ED if symptoms worse Fito Tong Within 5 to 7 days [facility] [place] [place] [address]- Business (1) Additional Instructions: Call physician if symptoms worsen Return to ED if symptoms worsen With Dr. Fortune regarding her kidney stones. Patient Education Flank Pain, Lmjl-wm-[id number] Urine Strainer Kidney StonesAttestation Patient was seen and evaluated by Dr. Rebolledo. Patient was seen with the medical student Vero José MS3 I personally saw and evaluated the patient. I personally performed history, physical examination, review of systems, medical decision making and supervision of care. The chart, laboratories and diagnostic imaging for been reviewed. Agree with the evaluation and treatment of this patient.Problem List/Past Medical History Ongoing No qualifying data Historical No qualifying dataMedications Inpatient NS 1000 ml Bolus 1,000 mL, 1000 mL, IV Sodium Chloride 0.9% IV Cynthia 1000 mL 1,000 mL, 1000 mL, IV Home No active home medicationsAllergies No Known AllergiesSocial History Alcohol - Denies Alcohol Use, 08/18/2017 Substance Abuse - Denies Substance Abuse, 08/18/2017 Tobacco - Denies Tobacco Use, 08/18/2017Lab Results WBC: 8.3 E9/L (08/18/17 08:27:00) RBC: 5.4 E12/L (08/18/17 08:27:00) Hgb: 15.6 gm/dL (08/18/17 08:27:00) Hct: 46.8 % (08/18/17 08:27:00) MCV: 87.1 fL (08/18/17 08:27:00) MCH: 29.1 pg (08/18/17:27:00) MCHC: 33.4 gm/dL (08/18/17 08:27:00) RDW: 13.4 % (08/18/17 08:27:00) Platelet: 302 E9/L (08/18/17:27:00) MPV: 7.6 fL (08/18/17:27:00) Neutro Auto: 61.4 % (08/18/17:27:00) Lymph Auto: 29.5 % (08/18/17:27:) [place] Auto: 5.6 % (08/18/17:27:) Eos Auto: 2.9 % (08/18/17 08:27:00) Basophil Auto: 0.6 % (08/18/17:27:) Neutro Absolute: 5.1 E9/L (08/18/17 08:27:00) Lymph Absolute: 2.4 E9/L (08/18/17 08:27:00) [place] Absolute: 0.5 E9/L (08/18/17 08:27:00) Eos Absolute: 0.2 E9/L (08/18/17 08:27:00) Basophil Absolute: 0 E9/L (08/18/17 08:27:00) Glucose Lvl: 135 mg/dL (08/18/17 08:27:00) BUN: 18 mg/dL (08/18/17 08:27:00) Creatinine: 0.9 mg/dL (08/18/17 08:27:00) eGFR: >60 (08/18/17:27:00) eGFR AA: >60 (08/18/17:27:00) BUN/Creat Ratio: 20 (08/18/17 08:27:00) Sodium Lvl: 138 mmol/L (08/18/17 08:27:00) Potassium Lvl: 3.6 mmol/L (08/18/17 08:27:00) Chloride: 105 mmol/L (08/18/17:27:00) CO2: 27 mmol/L (08/18/17 08:27:00) AGAP: 10 mEq/L (08/18/17 08:27:00) Calcium Lvl: 9.2 mg/dL (08/18/17 08:27:00) Alk Phos: 60 Int._Unit/L (08/18/17 08:27:00) ALT: 24 Int._Unit/L (08/18/17:27:) AST: 21 Int._Unit/L (08/18/17::) Total Protein: 7.6 gm/dL (08/18/17 08::) Albumin Lvl: 4.1 gm/dL (08/18/17::) Globulin: 3.5 gm/dL (08/18/17::) A/G Ratio: 1.2 (08/18/17:27:) Bili Total: 0.4 mg/dL (08/18/17:27:) Bili Direct: <0.1 (08/18/17:27:) Bili Indirect: Unable to Calculate Abnormal (08/18/17:27:) Lipase Lvl: 28 unit/L (08/18/17:27:) CK MB: 0.7 ng/mL (08/18/17 11:03:00) Myoglobin: 13 ng/mL (08/18/17 11:03:00) Troponin: <0.03 (08/18/17 11:03:00) Total CK: 45 Int._Unit/L (08/18/17 11:03:00) UA Spec Desc: Clean Catch (08/18/17 08:29:00) UA Color: Yellow2 (08/18/17 08:29:00) UA Clarity: Clear2 (08/18/17 08:29:00) UA Spec Grav: 1.025 (08/18/17 08:29:00) UA pH: 6.0 (08/18/17 08:29:00) UA Protein: NEGATIVE1 (08/18/17 08:29:00) UA Glucose: NEGATIVE1 (08/18/17 08:29:00) UA Ketones: NEGATIVE1 (08/18/17 08:29:00) UA Bili: NEGATIVE1 (08/18/17 08:29:00) UA Blood: NEGATIVE1 (08/18/17 08:29:00) UA Nitrite: NEGATIVE1 (08/18/17 08:29:00) UA Urobilinogen: 0.2 (08/18/17 08:29:00) UA Leuk Est: NEGATIVE1 (08/18/17 08:29:00) UA RBC: 0-3 (08/18/17 08:29:00) UA Squam Epithelial: 0-2 (08/18/17 08:29:00) UA WBC: 0-5 (08/18/17 08:29:00) UA Mucous: Trace2 (08/18/17 08:29:00)Diagnostic Results CT Abdomen/Pelvis w/o Contrast 08/18/17 09:22:22 IMPRESSION: NONOBSTRUCTING CALCULUS IN EACH KIDNEY. NO URETERAL CALCULUS NOR OBSTRUCTIVE UROPATHY IS NOTED. THERE IS A SMALL CALCIFICATION IN THE PROSTATE CENTRALLY, THAT MAY JUST REPRESENT A PROSTHETIC CALCIFICATION OF NO SIGNIFICANCE, BUT A CALCULUS IN THE PROSTATIC URETHRA IS NOT EXCLUDED ON THE BASIS OF THIS STUDY. CLINICAL HISTORY: Right flank pain. Nausea. COMMENT: Unenhanced images were obtained. There is a 1.8 mm nonobstructing calculus in the inferior right kidney. There is a 3 mm nonobstructing calculus in the inferior left kidney. No calculus is noted in either ureter. The renal collecting systems are not dilated. Both kidneys otherwise appear unremarkable, within the limits of this unenhanced study. The superior portion of the liver is not included within the ipdtc-sg-reyd of this renal stone protocol study. The visualized portion of the liver is unremarkable. The spleen, pancreas, gallbladder, and adrenal glands are unremarkable. There is no retroperitoneal lymphadenopathy. The abdominal aorta is normal in diameter. No aneurysm is evident. Evaluation of bowel is limited on this study. The bowel loops are not dilated. There is no evidence of bowel obstruction. The appendix is normal. There is fecal material in the colon, which limits evaluation. There is no evidence of diverticulitis. No abdominal inflammatory complex, no free air, nor free fluid is noted. There is a minimal umbilical dehiscence, that contains fat. There is no pelvic mass nor pelvic lymphadenopathy. The prostate is not enlarged. There is a 2 mm calculus in the prostate centrally. The prostatic urethra is not delineated on this exam, and this calcification may be of no significance, but a calculus in the prostatic urethra is not excluded. No calculus is noted in the urinary bladder. The urinary bladder is not dilated. There are bilateral posterior stabilization rods with interpedicular screws that extend into the L4, L5, and S1 vertebral bodies. The patient is status post anterior interbody fusion with a metallic cylinder within the L5-S1 interspace. 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 There are mild hypertrophic degenerative changes at the L3-L4 level. There are hypertrophic degenerative changes involving lower thoracic vertebral bodies. There are metallic surgical screws transfixing the right and left sacroiliac joints. There is an implanted electrical stimulation device in subcutaneous soft tissues in the posterior right back. There are associated electrodes, with one electrode entering the spinal canal at the T10-T11 level and then directed cephalad in the lower thoracic spinal canal, and the other electrodes adjacent to lower thoracic spinous processes. The visualized bones are otherwise unremarkable, without evidence of fracture. All CT scans at this facility use dose modulation, iterative reconstruction, and/or weight based dosing when appropriate to reduce radiation dose to as low as reasonably achievable. Signed By: Neil Wood M.D. 08/18/17 09:22:22 GFR (mL/min/1/73m2) n/a Signed By: Neil Wood M.D. CTA Chest 08/18/17 11:13:07 IMPRESSION: NO CT EVIDENCE OF PULMONARY EMBOLISM. NO CHEST ABNORMALITY IS EVIDENT. CLINICAL HISTORY: Pulmonary Emboli (PE). Right-sided pain. COMMENT: Axial images were obtained after the rapid injection of IV contrast with narrow collimation and reconstructed at a narrow interval. Coronal and sagittal reconstructions were performed. On the PACS, images were reviewed in cine display and using MIP postprocessing. The pulmonary arteries are contrast opacified and no intraluminal filling defects are noted. The thoracic aorta is normal in diameter, without evidence of aneurysm. No pericardial effusion is noted. There is no mediastinal nor hilar lymphadenopathy. There are dependent atelectatic changes in both lungs posteriorly. No infiltration, no lung mass, nor pleural effusion is evident. There is an intraspinal electrode within the lower thoracic spinal canal, extending to the T8 level. All CT scans at this facility use dose modulation, iterative reconstruction, and/or weight based dosing when appropriate to reduce radiation dose to as low as reasonably achievable. Signed By: Neil Wood M.D. 08/18/17 11:13:07 GFR (mL/min/1/73m2) >60 Contrast: Isovue 370 Contrast amount in ml?s: 95 Signed By: Neil Wood M.D. Results EKG August 18 2017 1041 hours. Sinus bradycardia at 55 bpm. No acute ischemic changes. No ectopy. Normal [facility] Comment on above: Result Comment: Elec tronically Signed By: Vero Gonzalez\.br\Date and Time Signed: 08/18/17 08:48 EDT\.br\Electronically Co-Signed By: Maddy Rebolledo DO\.br\Date and Time Co-Signed: 08/18/17 12:34 EDT ED Patient Summaryon 018 ED Patient Summary (Inserted Image. Asmita ble to display) [place] [id number] Patient Discharge Instructions Person Information Name: CARMELITA EASTMAN Age: 41 Years Date: 08/18/2017 8:03 AMDischarge Diagnosis: 1:Right flank pain; 2:Right kidney stone Primary Care Physician: MILLER BUNN DO Provider InformationPrimary Provider: Maddy Rebolledo Proposal Manager:None The exam and treatment you received in the Emergency Department were for an urgent problem and are not intended as complete care. It is important that you follow up with a doctor, nurse practitioner, or physician?s customer relations assistant for ongoing care. If your symptoms become worse or you do not improve as expected and you are unable to reach your usual health care provider, you should return to the Emergency Department. We are available 24 hours a day. CARMELITA EASTMAN has been given the following list of patient education materials, prescriptions and follow-up instructions: Follow-up Instructions:With: Address: When: Fito Tong [address] [place] [address] [place] [address] Business (1) Within 5 to 7 days Comments: Call physician if symptoms worsen Return to ED if symptoms worsen With Dr. Fortune regarding her kidney stones. With: Address: When: [place], [place] [id number] [facility] (1) In 3 days 08/21/2017 Comments: Call physician if symptoms worsen Return to ED if symptoms worse In the event that this physician does not participate in your insurance network, please consult with your insurance company to find a nearby participating provider. Patient Education Materials:Flank Pain, Nitk-sy-Beae; Urine Strainer; Kidney Stones A MESSAGE TO ALL PATIENTS REGARDING OPIOIDS PRESCRIPTION OPIOIDS: WHAT YOU NEED TO KNOW Prescription opioids can be used to help relieve kjgnland-un-sytanz pain and are often prescribed following a surgery or injury, or for certain health conditions. These medications can be an important part of the treatment but also come with serious risks. It is important to work with your healthcare provider to make sure you are getting the safest, most effective care. WHAT ARE THE RISKS AND SIDE EFFECTS OF OPIOID USE?Prescription opioids carry serious risks of addiction and overdose, especially with prolonged use. An opioid overdose, often marked by slowed breathing, can cause sudden . The use of prescription opioids can have a number of side effects as well, even when taken as directed:? Tolerance?meaning you might need to take more of the medication for the same pain relief? Physical dependence?meaning you have symptoms of withdrawal when a medication is stopped? Increased sensitivity to pain ? Constipation? Nausea, vomiting, and dry mouth? Sleepiness and dizziness? Confusion? Depression? Low levels of testosterone that can result in lower sex drive, energy, and strength? Itching and sweating RISKS ARE GREATER WITH:? History of drug misuse, substance use disorder, or overdose? Mental health conditions (such as depression or anxiety)? Sleep apnea? Older age (65 years and older)? Avoid alcohol while taking prescription opioids. Also, unless specifically advised by your health care provider, medications to avoid include:? Benzodiazepines (such as Xanax or Valium)? Muscle relaxants (such as Soma or Flexeril)? Hypnotics (such as Ambien or Lunesta)? Other prescription opioids KNOW YOUR OPTIONSTalk to your health care provider about ways to manage your pain that don?t involve prescription opioids. Some of these options may actually work better and have fewer risks and side effects. Options may include:? Pain relievers such as acetaminophen, ibuprofen, and naproxen? Some medication that are also used for depression or seizures? Physical therapy and exercise? Cognitive behavioral therapy, a psychological, goal-directed approach, in which patients learn how to modify physical, behavioral, and emotional triggers of pain and stress. IF YOU ARE PRESCRIBED OPIOIDS FOR PAIN:? Never take opioids in greater amounts or more often than prescribed.? Follow up with your primary health care provider.o Work together to create a plan on how to manage your pain.o Talk about ways to help manage your pain that don?t involve prescription opioids.o Talk about any and all concerns and side effects.? Help prevent misuse and abuseo Never sell or share prescription opioids.o Never use another person?s prescription opioids.? Store prescription opioids in a secure place and out of reach of others (this may include visitors, children, friends, and family).? Safely dispose of unused prescription opioids: Find your community drug take-back program or your pharmacy mail-back program, or flush them down the toilet, following guidance from the Food and Drug Administration (www.fda.gov/Drugs/Resour cesForYou).? Visit www.cdc.gov/drugoverdose to learn about the risks of opioids abuse and overdose.? If you believe you may be struggling with addiction, tell your health continuum of care manager and ask for guidance or call [facility] National Helpline at 6-699-796-NBWS. v Source: US Department of Health and Human Services/Center for Disease Control & Prevention [facility] Medications Given:Medication Dose Route Sodium Chloride 0.9% intravenous solution 1000.00 mL Initial Volume 1000.00 mL/hr IV Left Mid Forearm ketorolac 30.00 mg IV Push Left Mid Forearm ondansetron 8.00 mg IV Push Left Mid Forearm hyoscyamine 0.25 mg SubLingual morphine 4.00 mg IV Push Left Mid Forearm morphine 4.00 mg IV Push Left Mid Forearm orphenadrine 60.00 mg IV Push Left Mid Forearm Medication Information:New MedicationsPrinted Prescriptionsdicyclomine (Bentyl 20 mg Tab) 1 Tabs By Mouth 4 times a day as needed As needed for pain or spasm for 7 Days. Refills: 0.ondansetron (Zofran ODT 8 mg Tab-Dis) 1 Tabs By Mouth every 8 hours as needed Nausea. Refills: 1.orphenadrine (orphenadrine 100 mg ER Tab) 1 Tabs By Mouth 2 times a day as needed as needed for pain for 10 Days. Refills: 0.Comment: Pharmacy Information: Thank you for choosing [facility] Patient Education Materials: Flank PainFlank pain is pain in your side. The flank is the area of your side between your upper belly (abdomen) and your back. Pain in this area can be caused by many different things. HOME CAREHome care and treatment will depend on the cause of your pain.? Rest as told by your doctor.? Drink enough fluids to keep your pee (urine) clear or pale yellow.??? Only take medicine as told by your doctor. ? Tell your doctor about any changes in your pain.? Follow up with your doctor. GET HELP RIGHT AWAY IF:? Your pain does not get better with medicine. ?? You have new symptoms or your symptoms get worse.? Your pain gets worse. ?? You have belly (abdominal) pain. ?? You are short of breath. ?? You always feel sick to your stomach (nauseous). ?? You keep throwing up (vomiting). ?? You have puffiness (swelling) in your belly. ?? You feel light-headed or you pass out (faint). ?? You have blood in your pee.? You have a fever or lasting symptoms for more than 2?3 days.? You have a fever and your symptoms suddenly get worse. MAKE SURE YOU:? Understand these instructions.? Will watch your condition.? Will get help right away if you are not doing well or get worse.Document Released: 01/23/2009 Document Revised: 08/31/2014 Document Reviewed: 11/28/2012ExitCare? Patient Information ?2015 [employer]. This information is not intended to replace advice given to you by your health care provider. Make sure you discuss any questions you have with your health care provider.Urine StrainerThis strainer is used to catch or filter out any stones found in your urine. Place the strainer under your urine stream. Save any stones or objects that you find in your urine. Place them in a plastic or glass container to show your caregiver. The stones vary in size - some can be very small, so make sure you check the strainer carefully. Your caregiver may send the stone to the lab. When the results are back, your caregiver may recommend medicines or diet changes. Document Released: 01/19/2005 Document Revised: 07/08/2012 Document Reviewed: 02/26/2009ExitCare? Patient Information ?2014 [employer]. This information is not intended to replace advice given to you by your health care provider. Make sure you discuss any questions you have with your health care provider.Kidney StonesYou have a large, 1.8 mm stone in your right kidney. You should follow-up with urology. Kidney stones (urolithiasis) are deposits that form inside your kidneys. The intense pain is caused by the stone moving through the urinary tract. When the stone moves, the ureter goes into spasm around the stone. The stone is usually passed in the urine. CAUSES? A disorder that makes certain neck glands produce too much parathyroid hormone (primary hyperparathyroidism). ? A buildup of uric acid crystals, similar to gout in your joints.? Narrowing (stricture) of the ureter.? A kidney obstruction present at (congenital obstruction).? Previous surgery on the kidney or ureters.? Numerous kidney infections.SYMPTOMS? Feeling sick to your stomach (nauseous). ? Throwing up (vomiting).? Blood in the urine (hematuria).? Pain that usually spreads (radiates) to the groin.? Frequency or urgency of urination.DIAGNOSIS? Taking a history and physical exam.? Blood or urine tests.? CT scan.? Occasionally, an examination of the inside of the urinary bladder (cystoscopy) is performed.TREATMENT? Observation. ? Increasing your fluid intake.? Extracorporeal shock wave lithotripsy?This is a noninvasive procedure that uses shock waves to break up kidney stones.? Surgery may be needed if you have severe pain or persistent obstruction. There are various surgical procedures. Most of the procedures are performed with the use of small instruments. Only small incisions are needed to accommodate these instruments, so recovery time is minimized.The size, location, and chemical composition are all important variables that will determine the proper choice of action for you. Talk to your health care provider to better understand your situation so that you will minimize the risk of injury to yourself and your kidney. HOME CARE INSTRUCTIONS? Drink enough water and fluids to keep your urine clear or pale yellow. This will help you to pass the stone or stone fragments.? Strain all urine through the provided strainer. Keep all particulate matter and stones for your health care provider to see. The stone causing the pain may be as small as a grain of salt. It is very important to use the strainer each and every time you pass your urine. The collection of your stone will allow your health care provider to analyze it and verify that a stone has actually passed. The stone analysis will often identify what you can do to reduce the incidence of recurrences.? Only take bsjw-myf-deptmbq or prescription medicines for pain, discomfort, or fever as directed by your health care provider.? Make a follow-up appointment with your health care provider as directed.? Get follow-up X-rays if required. The absence of pain does not always mean that the stone has passed. It may have only stopped moving. If the urine remains completely obstructed, it can cause loss of kidney function or even complete destruction of the kidney. It is your responsibility to make sure X-rays and follow-ups are completed. Ultrasounds of the kidney can show blockages and the status of the kidney. Ultrasounds are not associated with any radiation and can be performed easily in a matter of minutes.SEEK MEDICAL CARE IF:? You experience pain that is progressive and unresponsive to any pain medicine you have been prescribed.SEEK IMMEDIATE MEDICAL CARE IF:? Pain cannot be controlled with the prescribed medicine.? You have a fever or shaking chills.? The severity or intensity of pain increases over 18 hours and is not relieved by pain medicine.? You develop a new onset of abdominal pain.? You feel faint or pass out.? You are unable to urinate.MAKE SURE YOU:? Understand these instructions.? Will watch your condition.? Will get help right away if you are not doing well or get worse.Document Released: 04/16/2006 Document Revised: 12/17/2013 Document Reviewed: 09/17/2013ExitCare? Patient Information ?2014 [employer]. This information is not intended to replace advice given to you by your health care provider. Make sure you discuss any questions you have with your health care provider.JUAN JOSE Michele JEREMY A , have received the following patient education materials/instructions and have verbalized understanding: Patient Education Materials: Flank Pain, Yxtq-bb-Pkks; Urine Strainer; Kidney Stones Follow-up Instructions: With: Address: When: Fito Fortune [address] [place] [id number] [facility] (1) Within 5 to 7 days Comments: Call physician if symptoms worsen Return to ED if symptoms worsen With Dr. Fortune regarding her kidney stones. With: Address: When: [facility] [place] [address] [facility] (1) In 3 days 08/21/2017 Comments: Call physician if symptoms worsen Return to ED if symptoms worse Prescriptions: [dicyclomine (Bentyl 20 mg Tab)] [ondansetron (Zofran ODT 8 mg Tab-Dis)] [orphenadrine (orphenadrine 100 mg ER Tab)] Patient Signature ____ Date Clinician/Nurse Signature Date 08/18/17 14:41:[address] [facility] Hep Func Panelon 08-18-2017 Bilirubin (direct) UTC Abnormal 0.1-0.[address] [facility] Comment on above: Result Comment: Resu lt verified by Discern Rule. Performed result [facility] (Unable to Calculate) was sent as an Alpha code due the inability to calculate a valid numeric value. Performed By: #### 2 [id number], [id number], [id number], [id number], [id number], [id number] ####[facility] [address] [place] [address] Alanine aminotransferase (ALT) 24 Int._Unit/L Normal 6-46 [facility] Comment on above: Performed By: #### 2 089709, 1158563, 0571336, 1911710, [id number], [id number] ####[address] [place] [address] Albumin 4.1 g/dL Normal 3.3-5.[address] [facility] Comment on above: Performed By: #### 2 294410, 2473900, 2444665, 0820745, [id number], [id number] ####[facility] [address] [place] [address] Albumin 1.2 g/dL Normal 1.1-2.[address] [facility] Comment on above: Performed By: #### 2 668427, 5028752, 5347585, 1414637, [id number], 9596299 ####[facility] [address] [place] [address] Alkaline phosphatase (ALP) 60 Int._Unit/L Normal 21-[address] [facility] Comment on above: Performed By: #### 2 337741, 0736379, 7924880, 4838689, 14490309, 9832220 ####[facility] [address] [place] [address] Aspartate aminotransferase (AST) 21 Int._Unit/L Normal 5-43 [facility] Comment on above: Performed By: #### 2 716855, 5546320, 0876757, 5174587, 75091863, 9185945 ####[facility] [address] [place] [address] Bilirubin (direct) mg/dL Normal 0.1-0.[address] [facility] Comment on above: Performed By: #### 2 758141, 0757988, 5118035, 4372142, 83329424, 0005414 ####[facility] [address] [place] [address] Bilirubin (total) 0.4 mg/dL Normal 0.0-1.[address] [facility] Comment on above: Performed By: #### 2 507113, 0886905, 2974167, 9169419, 90458014, 5972248 ####[address] [address] Globulin 3.5 g/dL Normal 1.4-4.[address] [facility] Comment on above: Performed By: #### 2 733652, 8570132, 9618795, 7438141, 47260647, 5182347 ####[address] [address] Protein 7.6 g/dL Normal 6.0-7.[address] [facility] Comment on above: Performed By: #### 2 614193, 7162468, 9821065, 0798644, 41501995, 9449451 ####[facility] [address] [place] [address] Lipase Levelon 08-18-2017 Lipase 28 unit/L Normal 13-[address] [facility] Comment on above: Performed By: #### 2 340342, 2654524, 2471789, 2646523, 60001307, 5034389 ####[facility] [address] [place] [address] UA With Cult Reflexon 2017 Bilirubin Ql (U) Negative Normal Negative [facility] Comment on above: Performed By: #### 1 [id number] ####[facility] [address] [place] [address] COLOR:TYPE:PT:URINE:NO M:AUTO YELLOW Normal Yellow [facility] Comment on above: Performed By: #### 1 [id number] ####[facility] [address] [facility] [place] [address] Erythrocytes (RBC) 0-3 Normal 0-[address] [facility] Comment on above: Performed By: #### 1 [id number] ####[facility] [address] [facility] [place] [address] GLUCOSE:MCNC:PT:URINE: QN:TEST STRIP Negative Normal Negative [facility] Comment on above: Performed By: #### 1 [id number] ####[facility] [address] [place] [address] KETONES:MCNC:PT:URINE: QN:TEST STRIP Negative Normal Negative [facility] Comment on above: Performed By: #### 1 [id number] ####[address] [address] LEUKOCYTES:PRTHR:PT:UR INE:ORD:AUTOMATED Negative Normal Negative [facility] Comment on above: Performed By: #### 1 [id number] ####[facility] [address] [facility] [place] [address] UA Spec Desc Clean Catch Normal [facility] Comment on above: Performed By: #### 1 [id number] ####[address] [place] [address] Urine, clarity CLEAR Normal Clear [facility] Comment on above: Performed By: #### 1 [id number] ####[facility] [address] [place] [address] Urine, hemoglobin presence Negative Normal Negative [facility] Comment on above: Performed By: #### 1 [id number] ####[facility] [address] [facility] [place] [address] Urine, leukocytes in sedmiment 0-5 Normal 0-[address] [facility] Comment on above: Performed By: #### 1 [id number] ####[facility] [address] [place] [address] Urine, mucus presence in sediment TRACE Normal [facility] Comment on above: Performed By: #### 1 [id number] ####[facility] [address] [place] [address] Urine, nitrite presence Negative Normal Negative [facility] Comment on above: Performed By: #### 1 1965311 ####[facility] [address] [place] [address] Urine, pH 6.0 [pH] Invalid Interpretation Code 5.0-9.[address] [facility] Comment on above: Performed By: #### 1 [id number] ####[facility] [address] [place] [address] Urine, protein Negative Normal Negative [facility] Comment on above: Performed By: #### 1 [id number] ####[facility] [address] [place] [address] Urine, specific gravity 1.025 Invalid Interpretation Code 1.005-1.[address] [facility] Comment on above: Performed By: #### 1 [id number] ####[facility] [address] [place] [address] Urine, squamous cells in sediment 0-2 Normal 0-[address] [facility] Comment on above: Performed By: #### 1 [id number] ####[address] [address] Urine, urobilinogen 0.2 {Jo'U}/dL Normal 0.0-1.[address] [facility] Comment on above: Performed By: #### 1 [id number] ####[address] [address] eGFRon 08-18-2017 eGFR (black) mL/min/{1.73_m2} Normal >=[address] [facility] Comment on above: Order Comment: Order added by Discern Expert. Result Comment: eGFR is race adjusted. AA=. Performed By: #### 2 462055, 1234118, 7880086, 4417064, [id number], 2020354 ####[facility] [address] [place] [address] eGFR (non-black) mL/min/{1.73_m2} Normal >=59 [facility] Comment on above: Order Comment: Order added by Discern Expert. Result Comment: Orchid Superintendent yvonne kidney disease could be indicated at eGFR's of less than 60 mL/min/1.73m2. Kidney failure is indicated at less than 15 mL/min/1.73m2. Performed By: #### 2 560953, 5043634, 2978880, 5732501, 95631162, 3594069 ####[facility] [address] [place] [address] Vital Signs Date Time Vital Sign Value Performing Clinician Facility 02-01-2023 04:25-0400 Diastolic blood pressure 86 mm[Hg] DO Wallace Luana Work Phone: [facility] 02-01-2023 04:25-0400 Heart rate 74 /min DO Wallace Luana Work Phone: [facility] 02-01-2023 04:25-0400 Respiratory rate 18 /min DO Wallace Luana Work Phone: [facility] 02-01-2023 04:25-0400 SaO2% (BldA) [Mass fraction] 98 % DO Wallace Luana Work Phone: [facility] 02-01-2023 04:25-0400 Systolic blood pressure 136 mm[Hg] DO Wallace Luana Work Phone: [facility] 01-31-2023 23:51-0400 Body height 175.26 cm DO Wallace Luana Work Phone: [facility] 01-31-2023 23:51-0400 Body temperature 98.5 [degF] DO Wallace Luana Work Phone: [facility] 01-31-2023 23:51-0400 Body weight 104.32 kg DO Wallace Luana Work Phone: [facility] 11-09-2022 14:50-0400 Diastolic blood pressure 64 mm[Hg] Fara López MD [facility] Phone: [facility] 11-09-2022 14:50-0400 Heart rate 74 /min Fara López MD Work Phone: [facility] 11-09-2022 14:50-0400 Respiratory rate 20 /min Fara López MD Work Phone: [facility] [employer] 11-09-2022 14:50-0400 SaO2% (BldA) [Mass fraction] 96 % Fara López MD Work Phone: [facility] [employer] 11-09-2022 14:50-0400 Systolic blood pressure 120 mm[Hg] Fara López MD Work Phone: [facility] 11-09-2022 14:20-0400 Body temperature 97.81 [degF] Fara López MD Work Phone: [facility] 11-09-2022 13:00-0400 Body height 175.3 cm Fara López MD Work Phone: [facility] 11-09-2022 13:00-0400 Body mass index (BMI) [Ratio] 34.7 kg/m2 Fara López MD Work Phone: [facility] 11-09-2022 13:00-0400 Body weight 106.59 kg Fara López MD Work Phone: [facility] 11-02-2022 17:21-0400 Diastolic blood pressure 72 mm[Hg] DO Wallace Luana Work Phone: [facility] 11-02-2022 17:21-0400 Heart rate 76 /min DO Wallace Luana Work Phone: [facility] 11-02-2022 17:21-0400 Respiratory rate 18 /min DO Wallace Luana Work Phone: [facility] 11-02-2022 17:21-0400 SaO2% (BldA) [Mass fraction] 99 % DO Wallace Luana Work Phone: [facility] 11-02-2022 17:21-0400 Systolic blood pressure 130 mm[Hg] DO Wallace Luana Work Phone: [facility] 11-02-2022 13:31-0400 Body height 175.26 cm DO Wallace Luana Work Phone: [facility] 11-02-2022 13:31-0400 Body temperature 98.6 [degF] DO Wallace Luana Work Phone: [facility] 11-02-2022 13:31-0400 Body weight 111 kg DO Wallace Luana Work Phone: [facility] 10-30-2022 06:05-0400 Diastolic blood pressure 67 mm[Hg] DO Wallace Luana Work Phone: [facility] 10-30-2022 06:05-0400 Systolic blood pressure 139 mm[Hg] DO Wallace Luana Work Phone: [facility] 10-30-2022 06:02-0400 Heart rate 65 /min DO Wallace Luana Work Phone: [facility] 10-30-2022 06:02-0400 Respiratory rate 18 /min DO Wallace Luana Work Phone: [facility] 10-30-2022 06:02-0400 SaO2% (BldA) [Mass fraction] 98 % DO Wallace Luana Work Phone: [facility] 10-30-2022 02:48-0400 Body height 175.26 cm DO Wallace Luana Work Phone: [facility] 10-30-2022 02:48-0400 Body temperature 97.6 [degF] DO Wallace Luana Work Phone: [facility] 10-30-2022 02:48-0400 Body weight 106.59 kg DO Wallace Corbin Work Phone: [facility] 05-18-2022 18:31-0500 Diastolic blood pressure 72 mm[Hg] Wallace Corbin [facility] 05-18-2022 18:31-0500 Heart rate 70 /[facility] 05-18-2022 18:31-0500 Respiratory rate 16 /min Wallace [facility] 05-18-2022 18:31-0500 SaO2% (BldA) [Mass fraction] 98 % Wallace [facility] 05-18-2022 18:31-0500 Systolic blood pressure 121 mm[Hg] [facility] 05-18-2022 12:57-0500 Body height 175.2 cm [facility] 05-18-2022 12:57-0500 Body weight 118.1 kg [facility] 03-27-2022 17:10-0500 Body height 177.8 cm Azul Langford Other [employer] Other 03-27-2022 17:10-0500 Body mass index (BMI) [Ratio] 38.02 kg/m2 Azul Langford Other [employer] Other 03-27-2022 17:10-0500 Body temperature 98.3 [degF] Azul Langford Other [employer] Other 03-27-2022 17:10-0500 Body weight 120.2 kg Azul Langford Other [employer] Other 03-27-2022 17:10-0500 Respiratory rate 18 /min Azul Langford Other [employer] Other 03-27-2022 17:10-0500 SaO2% (BldA) [Mass fraction] 98 % Azul Langford Other [employer] Other 02-01-2022 11:50-0400 Diastolic blood pressure 74 mm[Hg] Karissa Leal MD Work Phone: [employer] 02-01-2022 11:50-0400 Heart rate 64 /min Karissa Leal MD Work Phone: [employer] 02-01-2022 11:50-0400 Respiratory rate 18 /min Karissa Leal MD Work Phone: [employer] 02-01-2022 11:50-0400 SaO2% (BldA) [Mass fraction] 96 % Karissa Leal MD Work Phone: [employer] 02-01-2022 11:50-0400 Systolic blood pressure 123 mm[Hg] Karissa Leal MD Work Phone: [employer] 02-01-2022 10:16-0400 Body height 175.3 cm Karissa Leal MD Work Phone: [employer] 02-01-2022 10:16-0400 Body mass index (BMI) [Ratio] 39.13 kg/m2 Karissa Leal MD Work Phone: [employer] 02-01-2022 10:16-0400 Body temperature 97.2 [degF] Karissa Leal MD Work Phone: [employer] 02-01-2022 10:16-0400 Body weight 120.2 kg Karissa Leal MD Work Phone: [employer] 12-30-2021 17:00-0400 Diastolic blood pressure 79 mm[Hg] Wallace Corbin DO Work Phone: [employer] 12-30-2021 17:00-0400 Heart rate 64 /min Wallacenino Corbin DO Work Phone: [facility] 12-30-2021 17:00-0400 SaO2% (BldA) [Mass fraction] 95 % Wallace Corbin DO Work Phone: [facility] 12-30-2021 17:00-0400 Systolic blood pressure 135 mm[Hg] Wallace Corbin DO Work Phone: [facility] 12-30-2021 13:58-0400 Respiratory rate 16 /min Wallacenino Corbin DO Work Phone: [facility] 12-30-2021 13:07-0400 Body height 175.3 cm Wallace Corbin DO Work Phone: [facility] 12-30-2021 13:07-0400 Body mass index (BMI) [Ratio] 38.4 kg/m2 Wallace Corbin DO Work Phone: [facility] 12-30-2021 13:07-0400 Body temperature 98.29 [degF] Wallace Corbin DO Work Phone: [facility] 12-30-2021 13:07-0400 Body weight 117.94 kg Wallace Corbin DO Work Phone: [facility] 12-29-2021 11:05-0400 Diastolic blood pressure 67 mm[Hg] DO Paulie Boo Work Phone: [facility] 12-29-2021 11:05-0400 Heart rate 69 /min DO Paulie Boo Work Phone: [facility] 12-29-2021 11:05-0400 Respiratory rate 18 /min DO Paulie Boo Work Phone: [facility] 12-29-2021 11:05-0400 SaO2% (BldA) [Mass fraction] 97 % DO Paulie Boo Work Phone: [facility] 12-29-2021 11:05-0400 Systolic blood pressure 116 mm[Hg] DO Paulie Boo Work Phone: [facility] 12-29-2021 08:27-0400 Body height 173.99 cm DO Paulie Boo Work Phone: [facility] 12-29-2021 08:27-0400 Body weight 128 kg DO Paulie Boo Work Phone: [facility] 12-29-2021 08:25-0400 Body temperature 98.1 [degF] DO Paulie Boo Work Phone: [facility] 10-19-2021 10:15-0400 Body height 177.8 cm Paulie Boo Other [employer] Other 10-19-2021 10:15-0400 Body mass index (BMI) [Ratio] 39.77 kg/m2 Paulie Boo Other [employer] Other 10-19-2021 10:15-0400 Body weight 125.74 kg Paulie Boo Other [employer] Other 10-19-2021 10:15-0400 Diastolic blood pressure 88 mm[Hg] Paulie Boo Other [employer] Other 10-19-2021 10:15-0400 Respiratory rate 18 /min Paulie Boo Other [employer] Other 10-19-2021 10:15-0400 SaO2% (BldA) [Mass fraction] 98 % Paulie Rebolledomer Other [employer] Other 10-19-2021 10:15-0400 Systolic blood pressure 132 mm[Hg] Paulie Boo Other [employer] Other 09-07-2021 10:00-0400 Body height 177.8 cm Paulie Boo Other [employer] Other 09-07-2021 10:00-0400 Body mass index (BMI) [Ratio] 40.39 kg/m2 Paulie Boo Other [employer] Other 09-07-2021 10:00-0400 Body temperature 98.1 [degF] Paulie Boo Other [employer] Other 09-07-2021 10:00-0400 Body weight 127.69 kg Paulie Boo Other [employer] Other 09-07-2021 10:00-0400 Diastolic blood pressure 84 mm[Hg] Paulie Boo Other [employer] Other 09-07-2021 10:00-0400 Respiratory rate 18 /min Paulie Boo Other [employer] Other 09-07-2021 10:00-0400 SaO2% (BldA) [Mass fraction] 96 % Paulie Boo Other [employer] Other 09-07-2021 10:00-0400 Systolic blood pressure 124 mm[Hg] Paulie Boo Other [employer] Other 03-28-2021 14:30-0500 Body height 177.8 cm Sam Sheriff Other [employer] Other 03-28-2021 14:30-0500 Body mass index (BMI) [Ratio] 38.02 kg/m2 Sam Olexa Other [employer] Other 03-28-2021 14:30-0500 Body weight 120.2 kg Sam Olexa Other [employer] Other 02-22-2021 12:15-0400 Body height 177.8 cm Sam Olexa Other [employer] Other 02-22-2021 12:15-0400 Body mass index (BMI) [Ratio] 38.02 kg/m2 Sam Olexa Other [employer] Other 02-22-2021 12:15-0400 Body weight 120.2 kg Sam Olexa Other [employer] Other 02-22-2021 12:15-0400 Respiratory rate 18 /min Sam Olexa Other [employer] Other 02-22-2021 12:15-0400 SaO2% (BldA) [Mass fraction] 98 % Sam Olexa Other [employer] Other 01-25-2021 09:45-0400 Body height 177.8 cm Sam Olexa Other [employer] Other 01-25-2021 09:45-0400 Body mass index (BMI) [Ratio] 38.02 kg/m2 Sam Olexa Other [employer] Other 01-25-2021 09:45-0400 Body weight 120.2 kg Sam Olexa Other [employer] Other 05-21-2019 12:05-0500 BP Diastolic 84 mm[Hg] [facility] 05-21-2019 12:05-0500 BP Systolic 137 mm[Hg] [facility] 05-21-2019 12:05-0500 Pulse (Heart Rate) 78 /min [facility] 05-21-2019 12:05-0500 Pulse Oximetry 96 % [facility] 05-21-2019 12:05-0500 Respiratory Rate 18 /min Miller Bunn [facility] 05-21-2019 11:02-0500 BMI (Body Mass Index) 39.9 kg/m2 [facility] 05-21-2019 11:02-0500 Body Temperature 98.3 [facility]degF] [facility] 05-21-2019 11:02-0500 Body weight 122.46 kg [facility] 05-21-2019 11:02-0500 Height 175.26 cm [facility] 04-09-2019 11:53-0500 BP Diastolic 74 mm[Hg] [facility] 04-09-2019 11:53-0500 BP Systolic 112 mm[Hg] [facility] 04-09-2019 11:53-0500 Pulse (Heart Rate) 70 /min [facility] 04-09-2019 11:53-0500 Pulse Oximetry 98 % [facility] 04-09-2019 11:53-0500 Respiratory Rate 18 /min [facility] 04-09-2019 10:11-0500 BMI (Body Mass Index) 38.7 kg/m2 [facility] 04-09-2019 10:11-0500 Body Temperature 98.8 [degF] [facility] 04-09-2019 10:11-0500 Body weight 122.47 kg [facility] 04-09-2019 10:11-0500 Height 177.8 cm [facility] Encounters Encounter Date Encounter Type Care Provider Facility Start: 04-12-2023 ambulatory [facility] Start: 04-04-2023 ambulatory [facility] Start: 03-31-2023 End: 03-31-2023 Emergency department patient visit WALLACE [facility] Start: 02-01-2023 End: 02-01-2023 Emergency department patient visit Sam Mccoy Jr Facility:[facility] Start: 01-31-2023 End: 02-01-2023 Emergency department patient visit DO Wallace Corbin Work Phone: [facility] Work Phone: Start: 11-09-2022 End: 11-09-2022 ambulatory [facility] Start: 11-09-2022 End: 11-09-2022 Subsequent hospital visit by physician Fara López MD Work Phone: [facility] Start: 11-02-2022 End: 11-02-2022 Emergency department patient visit Ana Maria Nara Luz Maria Facility:[facility] Start: 11-02-2022 End: 11-02-2022 Emergency department patient visit DO Wallace Corbin Work Phone: [facility] Work Phone: Start: 10-30-2022 End: 10-30-2022 Emergency department patient visit Sam Mccoy Jr Facility:[facility] Start: 10-30-2022 End: 10-30-2022 Emergency department patient visit DO Wallace Corbin Work Phone: [facility] Work Phone: Start: 10-23-2022 End: 10-23-2022 ambulatory FARA Pedraza [facility] Start: 10-10-2022 End: 10-13-2022 ambulatory FARA Sales [facility] Start: 10-06-2022 End: 10-09-2022 Evaluation and management of inpatient [facility] Start: 06-15-[address] [facility] Start: 05-18-2022 End: 05-18-2022 Emergency department patient visit Tyler Cavazosyria ED 10 Start: 05-18-[address] [facility] Start: 04-13-[address] [facility] Start: 03-27-2022 End: 03-27-2022 ambulatory Azul Langford Other [employer] Other Start: 03-27-2022 Office outpatient visit 15 minutes Azul Langford [facility] Start: 02-01-2022 End: 02-01-2022 Subsequent hospital visit by physician Brock Leal MD Work Phone: [facility] [place] Comment on above: Colon cancer screeni ng Start: 12-30-2021 End: 12-30-2021 Emergency department patient visit Wallace Corbin DO Work Phone: [facility] ED Comment on above: Flank pain (Primary Dx) Start: 12-29-2021 End: 12-29-2021 Emergency department patient visit DO Paulie Boo Work Phone: [facility] Start: 10-19-2021 End: 10-19-2021 ambulatory Paulie Boo Other [employer] Other Start: 10-19-2021 Office outpatient visit 25 minutes Paulie Boo [facility] [place] Start: 10-13-2021 End: 10-13-2021 Patient encounter procedure DO Paulie Boo Work Phone: [facility] [place] Start: 09-07-2021 End: 09-07-2021 ambulatory Paulie Boo Other [employer] Other Start: 09-07-2021 Office outpatient visit 25 minutes Paulie Boo [facility] [place] Start: 04-18-2021 End: 04-18-2021 ambulatory Sam Olexa Other [employer] Other Start: 04-18-2021 Telephone encounter Sam Olexa [facility] Start: 03-30-2021 End: 03-30-2021 ambulatory Sam Olexa Other [employer] Other Start: 03-30-2021 Telephone encounter Sam Olexa [facility] Start: 03-28-2021 End: 03-28-2021 ambulatory Sam Olexa Other [employer] Other Start: 03-28-2021 Office outpatient visit 25 minutes Sam Olexa [facility] Start: 02-22-2021 Office outpatient visit 15 minutes Sam Olexa [facility] Start: 02-03-2021 Telephone encounter Sam Olexa [facility] Start: 02-01-2021 Office outpatient visit 15 minutes Sam Olexa [facility] Start: 01-31-2021 Telephone encounter Sam Olexa [facility] Start: 01-25-2021 Office outpatient visit 25 minutes Sam Olexa [facility] Start: 05-21-2019 End: 05-21-2019 Admission to day surgery [facility] Start: 04-09-2019 End: 04-09-2019 Admission to day surgery [facility] Start: 01-01-2019 End: 01-01-2019 Patient encounter procedure DOCTOR MIS Facility:H1 Start: 12-26-2018 End: 12-26-2018 Patient encounter procedure DOCTOR [facility] Facility:[facility] Start: 07-31-2018 End: 07-31-2018 Admission to day surgery [facility] Start: 10-15-2017 End: 10-16-2017 Ambulatory Miller Dawncasandra Facility:CD:[id number] Start: 08-18-2017 End: 08-18-2017 Emergency department patient visit Maddy Rebolledo [facility] Procedures Date Procedure Procedure Detail Performing Clinician Start: 11-02-2022 CT of abdomen and pe lvis without contrast DO Wallace Corbin Work Phone: Start: 10-30-2022 Urine culture DO Vanessa Corbin Work Phone: Start: 10-30-2022 CT of abdomen and pe lvis without contrast DO Wallace Corbin Work Phone: Start: 02-01-2022 SCANNED COLONOSCOPY REPORT Brock Leal MD Work Phone: Start: 02-01-2022 Colonoscopy Elisa segal MD Work Phone: Start: 12-30-2021 Ct abdomen & pelvis w/contrast material [employer] Work Phone: Start: 12-30-2021 Comprehensive metabo lic panel [employer] Work Phone: Start: 12-30-2021 Drug tst prsmv instr mnt chem analyzers pr date [employer] Work Phone: Start: 12-30-2021 Urnls dip stick/tabl et rgnt auto w/o microscopy [employer] Work Phone: Start: 12-29-2021 CT of abdomen and pe lvis without contrast DO Paulie Boo Work Phone: Start: 05-21-2019 Injection of sacroil iac joint Miller Bunn Start: 04-09-2019 Local anesthetic fac et joint nerve block Miller Bunn Plan of Treatment Date Care Activity Detail Author Start: 02-02-2032 Screening for malign ant neoplasm of colon [employer] Start: 11-12-2030 DTaP/Tdap/Td vaccine (2 - Td or Tdap) DTaP/Tdap/Td vaccine (2 - Td or Tdap) [employer] Start: 02-01-2027 Screening for malign ant neoplasm of colon [employer] Start: 07-15-2023 [facility] Start: 02-08-2023 End: 02-08-2023 Patient encounter procedure 02/08/2023 Office Visit Urology Fara López MD [address] [place] [address] [facility] Start: 02-01-2023 Bacteria identified in Blood by Culture [facility] Start: 02-01-2023 CT Abdomen and Pelvi s WO contrast [facility] Start: 02-01-2023 CT of abdomen and pe lvis without contrast CT abdomen pelvis wo [facility] Start: 01-25-2023 End: 01-25-2023 Patient encounter procedure 01/25/2023 Office Visit Family Medicine Gladys Cortez, MENTAL HEALTH NURSE PRACTITIONER - SET UP PERSON [address] [place] [address] [facility] Start: 12-22-2022 Depression Monitoring Depression Mon itoring [facility] Start: 12-22-2022 Depression Screen Depression Screen [facility] Start: 11-28-2022 Influenza vaccination Flu vaccine (# 1) [facility] Start: 11-09-2022 End: 11-09-2022 Cysto w/simple removal stone & stent CYSTOSCOPY STENT REMOVAL Kidney stone 11/09/2022 2:04 PM EDT [facility] Start: 11-02-2022 Bacteria identified in Urine by Culture [facility] Start: 10-30-2022 Bacteria identified in Urine by Culture Urine Culture [facility] Start: 10-30-2022 CT Abdomen and Pelvi s WO [facility] Start: 10-30-2022 CT of abdomen and pe lvis without contrast CT abdomen pelvis wo [facility] Start: 05-18-2022 End: 05-19-2023 fentaNYL Injectable 50 microgram IntraVenous Push Once ; (SUBLIMAZE)DOSE = 50 microgram(s) IntraVenous Push Once, PRN Pain - Severe (7-10) Start: 18-May-2022 End: 18-May-2023 Ordered: 18-May-2022 Marissa Powell [facility] Start: 02-06-2022 End: 02-06-2022 Patient encounter procedure 02/06/2022 Office Visit [facility] Wallace Corbin [address] [address] [facility] Start: 02-01-2022 End: 02-01-2022 Admission to same day surgery center 02/01/2022 Surgery Endoscopy Brock Leal MD [address] [place] [address] COLORECTAL CANCER SCREENING, NOT HIGH RISK [facility] [place] Comment on above: COLORECTAL CANCER SC REENING, NOT HIGH RISK Start: 02-01-2022 End: 02-01-2022 Colon ca scrn not hi rsk ind [facility] Start: 02-01-2022 Subsequent hospital visit by physician 02/01/2022 Hospital Encounter Endoscopy Brock Leal MD [address] [place] [address] [facility] [place] Start: 01-06-2022 End: 01-06-2022 Patient encounter procedure 01/06/2022 Office Visit [facility] Wallace Corbin [address] [address] [facility] Start: 12-29-2021 Influenza vaccination Flu vaccine (# 1) [facility] Start: 11-28-2021 Influenza vaccination Flu vaccine (# 1) [facility] Start: 05-16-2021 COVID-19 Vaccine (6 - Booster for Moderna series) COVID-19 Vaccine (6 - Booster for Moderna series) [facility] Start: 08-24-2019 Screening for malign ant neoplasm of colon [facility] Start: 2014 Lipid panel Lipids [facility] [employer] Start: 1992 Hepatitis C screening Hepatitis C sc reen [facility] Start: 1989 HIV screening HIV screen [facility] [employer] Bacteria identified in Blood by Culture [facility] End: 11-09-2022 Glucose [Mass/volume] in Serum or Plasma POCT Glucose Point of Care Testing Routine One Time for 1 Occurrences starting 11/09/2022 until 11/09/2022 [employer] Comment on above: One Time for 1 Occur rences starting 11/09/2022 until 11/09/2022 End: 02-01-2022 INITIATE PACU OXYGEN THERAPY PROTOCOL Initiate PACU Oxygen Therapy Protocol Respiratory Care Routine Continuous until discontinued starting 02/01/2022 [employer] Work Phone: Comment on above: Continuous until dis continued starting 02/01/2022 End: 11-09-2022 INITIATE PACU OXYGEN THERAPY PROTOCOL Initiate PACU Oxygen Therapy Protocol Respiratory Care Routine Continuous until discontinued starting 11/09/2022 [employer] Phone: Comment on above: Continuous until dis continued starting 11/09/2022 Oxygen therapy [Mini mum Data Set] Initiate Oxygen Therapy Protocol Respiratory Care Routine As Needed until discontinued starting 11/09/2022 [employer] Comment on above: As Needed until disc ontinued starting 11/09/2022 Oxygen therapy [Mini mum Data Set] Initiate Oxygen Therapy Protocol Respiratory Care Routine As Needed until discontinued starting 11/09/2022 [employer] Comment on above: As Needed until disc ontinued starting 11/09/2022 Patient Education [facility] Patient referral [facility] End: 12-30-2021 POCT CREATININE POCT CREATININE Point of Care Testing Routine One Time for 1 Occurrences starting 12/30/2021 until 12/30/2021 [employer] Phone: Comment on above: One Time for 1 Occur rences starting 12/30/2021 until 12/30/2021 Spirometry panel Incentive arabella metry Respiratory Care Routine Every 2hr while awake until discontinued starting 11/09/2022 [employer] Comment on above: Every 2hr while awak e until discontinued starting 11/09/2022 Surgical Pathology [facility] Lab Routine Colon cancer screening Release Upon Ordering for 1 Occurrences starting 02/01/2022 [employer] Phone: Comment on above: Release Upon Cristel eastman for 1 Occurrences starting 02/01/2022 Immunizations Immunization Date Immunization Notes Care Provider Rosie bishop 02-16-2022 Influenza, injectabl e, Madin Chrissy Canine Kidney, preservative free, quadrivalent Fara López MD Work Phone: [facility] [employer] 03-21-2021 COVID-19, PFIZER PURPLE top, DILUTE for use, (age 12 y+), 30mcg/0.3mL Fara López MD [facility] [place] [employer] 02-01-2021 Kenalog -40 mg Sam Olexa Other [employer] Other 01-14-2021 influenza, injectabl e, quadrivalent, preservative free Fara López MD Work Phone: [facility] [place] [employer] 01-14-2021 influenza, seasonal, injectable Paulie Rajeev Other [employer] Other 11-12-2020 tetanus toxoid, reduced diphtheria toxoid, and acellular pertussis vaccine, adsorbed Fara López MD Work Phone: [facility] [place] [employer] 05-26-2020 COVID-19 Vaccine Moderna - Documentation Purposes Only Paulie Rajeev Other [employer] Other 04-28-2020 COVID-19 Vaccine Moderna - Documentation Purposes Only Paulie Rajeev Other [employer] 02-03-2020 influenza, injectabl e, quadrivalent, preservative free Fara López MD Work Phone[facility] [place] [employer] 03-17-2019 Kenalog -40 mg Sam Olexa Other [employer] Other 01-06-2019 Influenza, injectabl e, Madin Chrissy Canine Kidney, preservative free, quadrivalent Fara López MD Work Phone: [facility] 12-26-2017 influenza, injectabl e, quadrivalent, preservative free Fara López MD Work Phone: [facility] 02-14-2017 Influenza, injectabl e, Madin Chrissy Canine Kidney, preservative free, quadrivalent aFra López MD Work Phone: [facility] 01-20-2016 seasonal influenza, intradermal, preservative free Fara López MD Work Phone: [facility] 03-30-2014 KENALOG - 10 mg Sam Olexa Other [employer] Other 09-24-2009 tetanus toxoid, reduced diphtheria toxoid, and acellular pertussis vaccine, adsorbed Sam Olexa Other [employer] Other 02-19-2008 influenza virus vaccine, unspecified formulation Fara López MD Work Phone: [facility] 05-10-2004 TD(adult) unspecifie d formulation Fara López MD Work Phone: [facility] 03-08-1999 hepatitis B vaccine, adult dosage Fara López MD Work Phone: [facility] 03-08-1999 influenza virus vaccine, whole virus Fara López MD Work Phone: [facility] 08-31-1998 hepatitis B vaccine, adult dosage Fara López MD Work Phone: [facility] 07-27-1998 hepatitis B vaccine, adult dosage Fara López MD Work Phone: [facility] Payers Date Payer Category Payer Self-pay [id number] 2021 Unknown [id number] 2021 [facility] [id number] 2017 Unknown 1974 Unknown [id number] 2.16.84 0.1.006666.3.579.2.593 1974 Unknown [id number] 2.16.84 0.1.554119.3.579.2.593 1974 Unknown [id number] 2.16.8 40.1.894052.3.579.2.1068 1974 Unknown [id number] 2.16.8 40.1.630880.3.579.2.182 1974 Unknown [id number] 2.16.8 40.1.753581.3.579.2.182 1974 Unknown [id number] 2.16.8 40.1.536934.3.579.2.182 1974 Unknown [id number] 2.16.8 40.1.168895.3.579.2.182 1974 Unknown [id number] 2.16.8 40.1.791693.3.579.2.182 1974 Unknown [id number] 2.16.8 40.1.563102.3.579.2.182 1974 Unknown [id number] 2.16.8 40.1.033245.3.579.2.182 1974 Unknown [id number] 2.16.8 40.1.914589.3.579.2.182 1974 Unknown [id number] 2.16.84 0.1.294520.3.579.2.1282 1974 Unknown [id number] 2.16.84 0.1.006629.3.579.2.1282 1959 Unknown [id number] Unknown [id number] Unknown [id number] 2.16.8 40.1.339963.19 Unknown [id number] 2. 16.840.1.792866.19 Unknown [id number] 2.16.8 40.1.794314.3.579.2.531 Unknown [id number] 2.16.8 40.1.179315.3.579.2.531 Unknown [id number] 2.16.8 40.1.300293.3.579.2.531 Social History Date Type Detail Facility Start: 05-21-2019 End: 12-22-2021 Tobacco smoking status WAIS Never smoked tobacco (finding) [employer] Start: 1975 Sex Assigned At Male [facility] Sex Assigned At Sex Assigned At [employer] Other Start: 12-22-2021 Tobacco use and exposure Smokeless tobacco non-user [employer] Phone: Start: 12-30-2021 End: 11-09-2022 Alcohol intake Current drinker of alcohol (finding) [employer] Phone: Start: 09-17-2014 History SDOH Alcohol Comment RARE [employer] Phone: Start: 12-21-2021 End: 07-14-2022 History SDOH Physical Activity DPW 5 [employer] Phone: Start: 12-21-2021 End: 07-14-2022 History SDOH Physical Activity MPS 1 [employer] Phone: Start: 12-21-2021 End: 07-14-2022 History SDOH IPV Fear 2 [employer] Phone: Start: 1975 Sex Assigned At Not on file [employer] Phone: Start: 12-20-2021 End: 02-01-2022 Exposure to SARS-CoV-2 (event) Not sure [employer] Work Phone: Tobacco smoking consumption unknown [facility] Start: 02-01-2023 Tobacco smoking status NHIS Ex-smoker (finding) [facility] NEGATED: Highlighted rowStart: NINF History of tobacco use Passive smoker [facility] [employer] Work Phone: Medical Equipment Procedure Code Equipment Code Equipment Origin al Text Equipment Identifier Dates Arthroscopy, shoulder Tendon/ligament bone anchor, non-bioabsorbable [id number] FDA Start: 04-20-2021 Stent Uret 6fr L26cm Polymer Blend Ph Free Coat Gradual Tapr - [id number] Start: 10-06-2022 Goals Date Patient Goal Desired Activity /State Clinical Notes 09-14-2020 to 11-09-2022 Lina Hung RN - 11/09/2022 2:52 PM EDTDischarge Instructions Note Date & Type Note Facility 11-09-2022 History of Presen t illness Narrative Disch inst given with presc verb understanding at side up to bathroom voided QS pink tinged urine. documented in this encounter [facility] 11-09-2022 Hospital Discharg e instructions Lina Hung RN - 11/09/2022 2:21 PM EDT Images from the original note were not included. Care order/instruction [[id number]] (Order #: [id number]) Reprint Requisition Care order/instruction (Order #[id number]) on 11/09/22 Additional Referral Information Referral Priority Routine [1] Order Information Order Date/Time Release Date/Time Start Date/Time End Date/Time 11/09/22 02:10 PM 11/09/22 02:10 PM 11/09/22 02:15 PM 11/09/22 02:15 PM Order Details Frequency Duration Priority Order Class ONE TIME 1 occurrence Routine Hospital Performed Original Order Ordered On Ordered By 11/09/2022 2:10 PM Fara López MD Order Providers Authorizing Fara López MD Comments D/C to home per PACU protocol. Drink plenty of liquids and continue Flomax for a week. F/U as scheduled with Dr López. Has Zofran to use at home prn. Finish Levaquin that he has at home as prescribed. Script for percocet 5/325 mg, 1 po every 6-8 hrs, #10 written. Care order/instruction: Patient Communication Not Released Not seen Patient Information Patient Name Carmelita Eastman Legal Sex Male N [id number] Additional Information Associated Reports View Encounter Priority and Order Details Click to Print Result Care order/instruction Order: [id number] Status: Active Visible to patient: No (not released) Next appt: 01/25/2023 at 09:00 AM in Family Medicine (Gladys Cortez, MENTAL HEALTH NURSE PRACTITIONER - [facility]) 0 Result Notes Order Details View Encounter Lab and Collection Details Routing Result History View Encounter Conversation Result Care Coordination Patient Communication Not Released Not seen Back to Top Reprint Requisition to Label Paper Care order/instruction (Order #[id number]) on 11/09/22 documented in this encounter [facility] 10-06-2022 [place] [address] CONSULTATION PATIENT NAME: CARMELITA EASTMAN : 1975 MED REC NO: [id number] ROOM: ACCOUNT NO: [id number] ADMIT DATE: 10/06/2022 PROVIDER: Fara López MD CONSULT DATE: 10/06/2022 INPATIENT CONSULTATION PERSON REQUESTING CONSULT: Yamilex Adkins MD REASON FOR CONSULTATION: Left proximal ureteral stone with severe renal colic. HISTORY OF PRESENT ILLNESS: This is a 47-year-old male with history of kidney stones in the past, chronic back pain, having undergone prior surgeries with chronic pain management for his back pain, depression, who presented with left flank pain for couple of a days. This initially started with nausea. The flank pain was similar to prior episodes of renal colic. It radiated from the flank anteriorly. It was associated with nausea, but no vomiting. He had no fevers, no chills, no hematuria, no dysuria. The pain became 10 on a scale of 1-10. He was seen through the emergency room and admitted for management of his pain with IV analgesia. He continues to have pain requiring IV Dilaudid. He has no other current complaints. He has a good flow and good force to his urinary stream. He has no other current urologic complaints. He has had prior lithotripsy in the past for his stone. He has had stents in the past as well and stone basket extraction as well. He has no other current complaint. He has seen Dr. Chaudhari in the past for management of the stones. PAST MEDICAL HISTORY: Includes chronic back pain, depression, kidney stones, lithotripsy and basket extraction, and stents in the past. PAST SURGICAL HISTORY: He has had back fusion at L4-5 and L4 to S1; he has had a S1 fusion as well, colonoscopy, hernia repair, stone basketing for kidney stones, lithotripsy with stent, he has had spinal cord stimulator, he has had shoulder surgery rotator cuff. FAMILY HISTORY: His brother has a history of kidney stones, but otherwise no family history of genitourinary malignancies. SOCIAL HISTORY: He denies cigarette smoking. HOME MEDICATIONS: Include Adipex, testosterone replacement therapy, multivitamins. ALLERGIES: He has no known drug allergies. REVIEW OF SYSTEMS: He has no diarrhea. No fever or chills. No chest pain or shortness of breath, it otherwise negative and noncontributory unless as outlined in the history of present illness. PHYSICAL EXAMINATION: GENERAL: In general, he is a well-developed, well-nourished male lying in bed in no obvious acute distress. VITAL SIGNS: His temperature is 36.7, heart rate 69, respiratory rate 18, blood pressure 129/67. HEENT: He is atraumatic, normocephalic. His eyes showed normal conjunctivae. NECK: His trachea is midline and supple. CHEST: His lungs were clear anteriorly without rhonchi or wheezing. CARDIOVASCULAR: His heart was regular rate and rhythm. ABDOMEN: Soft, nondistended, nontender. He had some mild left CVA tenderness to palpation. He had no palpable organomegaly. No palpable abdominal hernias. GENITOURINARY: Revealed a normal circumcised male phallus with normal-appearing meatus. Testes were downgoing bilaterally without masses. He had no scrotal abnormalities. He had no obvious inguinal hernias. EXTREMITIES: He had no extremity edema or cyanosis. NEUROLOGIC: He is alert and oriented. PSYCHIATRIC: He had a normal affect. LABORATORY DATA: He has a normal white count of 8.2, hematocrit of 44.5, platelet count of 245. His urinalysis showed no bacteria, 10-20 red cells, 3-5 white cells. His urinalysis was nitrite and leukocyte negative. He had a lactic acid of 1.1, which was normal. His creatinine was also normal at 1.19. I reviewed the CT scan on the PACS system. He does have about a 7-mm left proximal ureteral stone just below the UPJ on the left causing moderate hydronephrosis and hydroureter. There is other nonobstructing stones within the kidneys bilaterally. IMPRESSION AND PLAN: A 47-year-old male with history of chronic back pain, depression, and kidney stones, who was admitted with left renal colic, which was causing intractable pain requiring IV analgesia for management due to a 7-mm left proximal ureteral stone with hydronephrosis. Further treatment options were discussed with the patient including cystoscopy with stent insertion today, which he has agreed to and later stone treatment. Risks and benefits of cystoscopy with left retrograde pyelogram and left double-J stent insertion were discussed including, but not limited to infection, sepsis, pain, bleeding, ureteral of the bladder injury, inability to place stent, need for percutaneous nephrostomy tube insertion, irritative voiding symptoms related to the stent, need for catheter postoperatively and later need for stone treatment and he is willing to proceed as planned. He is not currently taking anticoagulants. Orders were placed for sequential compress (more content not included)... [facility] 03-27-2022 Evaluation note Encounter Date Diagnosis Assessment Notes Feb, Cough (ICD-10 - R05.9) Feb, Bilateral otitis media, unspecified otitis media type (ICD-10 - H66.93) Middle ear infection: adult home care material was printed Drink plenty fluids, get significantly take the amoxicillin and prednisone as prescribed until gone. Use the albuterol inhaler as prescribed as needed for cough or shortness of breath. Follow-up with your family physician if no improvement in 2 to 3 days. Off work today and tomorrow. Feb, Bronchitis (ICD-10 - J40) Acute bronchitis material was printed, Acute bronchitis material was printed [employer] Other 10-05-2022 Hospital Discharge instructions* Discharge Instructions* Brock Leal MD - 02/01/2022 11:31 AM EDT Lower Discharge Instructions Patient Name: Carmelita Eastman Date of : 1975 Procedure: @ORPROCALL@ Referring Physician: @RAKESH@ Procedure Date: 02/01/2022 Recommendations: [] Follow-up appointment with family physician in 4 weeks. [x] Colonoscopy recommended in 5 years. [] Follow-up appointment with endoscopist in Reports of your procedure and these recommendations have been sent to: @RAKESH@ Sedative medication given for procedures can slow your reaction time and coordination for many hours. If you receive medications, it is important for your safety to follow the instructions below for the remainder of the day: BE TAKEN directly home from the center and rest quietly. DO NOT resume normal activities until tomorrow. Do NOT drive, return to work, or operate any machinery or power tools. Do NOT make any important personal or business decisions, sign any legal papers or perform any activity that depends on your full concentration power or mental judgement. Do NOT drink any alcohol or take nerve or sleeping drugs. They add to the effects of the medicine still present in your body. [] (Checked if a biopsy or polyp removal was performed) There is a slight risk of bleeding. If you had a biopsy or a polyp removed, we suggest that you follow the instructions below: Do NOT take aspirin or similar anti-inflammatory medicine for ___ days. Do NOT exercise, jog, or do any heavy lifting or straining for 1 day. Potential common after effects and treatment following the procedure: Mild abdominal pain, bloating, or excessive gas - rest, eat lightly, and use a heating pad. Redness and/or swelling where the IV was - apply heat and elevate. Symptoms to report to your physician: Severe abdominal pain or bloating. Chills or fever above 101 degrees occurring within 24 hours after procedure. Large amounts of rectal bleeding that does not stop. Small amount of rectal bleeding is not seriousespecially if hemorrhoids are present. Unable to keep down food or drink. IV site stays red and swollen for more than 2 days. In the case of an emergency, please go to the emergency room. If you are not having an emergency but are having some of the above symptoms please call the doctor's office at: Dr. Leal @PCP@ I have read and understand the above instructions: Patient or Patient Rep.Signature Witness Signature Date: 02/01/2022 Time: * Attachments The following attachments cannot be sent through Care Everywhere. * Colonoscopy: Post-op ([place]) * Colon Polyps ([place]) * Diverticulosis ([place]) * Coronavirus Disease (COVID-19): General Info ([place]) documented in this encounterBON Shirley Mae's Phone: [phone] 164-851506-22-2022 Evaluation note* Encounter Date Diagnosis Assessment Notes Treatment Notes Treatment Clinical Notes Sep, Major depressive disorder with current active episode, unspecified depression episode severity, unspecified whether recurrent (ICD-10 - F32.9) He will be taken off Lexapro and will keep an eye on his depression over the summer as it is usually worse in the winter. He will f/u before winter to discuss starting a different medication. Sep, Low testosterone in male (ICD-10 - R79.89) Patient's testosterone level was very low 2 weeks after his 200 mg testosterone injection that he was taking once monthly. This is clearly not enough testosterone and he will be increased to 200 mg twice monthly. He will wait 2 to 3 months and recheck his testosterone level to see if they have increased dosing his level lose back into the normal range. Patient voiced understanding agrees with this treatment plan. He will follow-up in a few months for reassessment after lab work to make sure his dose does not need to change. Sep, Medication monitoring encounter (ICD-10 - Z51.81) [employer] Other 05-11-2022 Evaluation note* Encounter Date Diagnosis Assessment Notes Treatment Notes Treatment Clinical Notes August, Major depressive disorder with current active episode, unspecified depression episode severity, unspecified whether recurrent (ICD-10 - F32.9) Discussed options in detail today. Discussed depression and anxiety in great detail at this visit. Patient is stable and without homicidal and suicidal ideation today. Discussed proper depression and anxiety management to include diet, exercise routines, and lifestyle changes. Detailed discussion was had with Mr. Eastman in regards to him wanting to start medication to help with ongoing depression. We will start escitalopram 10 mg orally daily. Advised on taking medication as prescribed. Do not stop this medication abruptly without consulting medical provider. Avoid excess alcohol and opioid use while taking this medication. Discussed common, emergent and rare side effects. It may take 4-8 weeks to feel full effect of the medication. If suicidal or homicidal ideation occur, report to ER immediately. Mr. Eastman is content with this treatment plan and acknowledges understanding. August, Low testosterone in male (ICD-10 - R79.89) Is currently on testosterone cypionate 200 mg injections once a month. Discussed continuing this medication as well as obtaining current Testosterone lab values. We will order this and advise Mr. Eastman to obtain that in the next 3 to 4 weeks. We will discuss further treatment plans once these results are returned. August, Morbid (severe) obesity due to excess calories (ICD-10 - E66.01) Discussed with Mr. Eastman progressing benefits associated with weight gain advised Mr. Eastman and his current BMI status plan benefits of weight loss program. Discussed dietary changes as well as weight loss program associated with exercise. He was compliant and understanding. August, Body mass index [BMI] 40.0-44.9, adult (ICD-10 - Z68.41) August, Medication monitoring encounter (ICD-10 - Z51.81) [employer] Other 01-04-2022 NotePatient Education Materials Follows: [facility] Evaluation note* Encounter Date Diagnosis Assessment Notes Treatment Notes Treatment Clinical Notes Mar, Other specified postprocedural states (ICD-10 - Z98.890) [employer] Other 12-02-2021 NotePatient Education Materials Follows: [facility]dqec[facility]ns41-58-3899 Evaluation note* Encounter Date Diagnosis Assessment Notes Treatment Notes Treatment Clinical Notes Feb, Strain of unspecified muscles, fascia and tendons at forearm level, right arm, initial encounter (ICD-10 - S56.911A) Feb, Superior labrum qymsxpnl-lo-gvpcjx ior (SLAP) tear of right shoulder (ICD-10 - S43.431A) We will plan on arthroscopic labral repair. The patient has stated that they do not want to live in this condition any longer and would like to proceed with surgery. I feel that this is a reasonable option at this point and we may be able to improve function and decrease pain. We have discussed the process and procedure in detail including not eating or drinking 8 hrs prior to surgery, the need for general anesthesia and associated respiratory, cardiac, and patient position complications (such as nerve traction and compression). The benefit of regional block anesthesia and complications of arm numbness and neck pain. We discussed that pain and stifffness can be expected after surgery for months. The complications of infection, hardware pullout, cuff repair failure, senior living pain and stiffness are well known problems that can require repeat surgeries. Patient is fully aware that this shoulder may never be the same. We discussed that our team will do everything we can to help achieve the best outcome. Feb, Unspecified sprain of right elbow, initial encounter (ICD-10 - S53.401A) Feb, Contusion of left forearm, initial encounter (ICD-10 - S50.12XA) Feb, Contusion of right shoulder, initial encounter (ICD-10 - S40.011A) [employer] Other 10-26-2021 NotePatient Education Materials Follows: [facility]Bxtyrwiw19-12-1781 Evaluation note* Encounter Date Diagnosis Assessment Notes Treatment Notes Treatment Clinical Notes Jan, Strain of unspecified muscles, fascia and tendons at forearm level, right arm, initial encounter (ICD-10 - S56.911A) Jan, Unspecified sprain of right elbow, initial encounter (ICD-10 - S53.401A) Jan, Contusion of left forearm, initial encounter (ICD-10 - S50.12XA) Jan, Contusion of right shoulder, initial encounter (ICD-10 - S40.011A) We will continue to await [facility] approval for further treatment. Continue gentle motion/strengthe annmarie. Call with questions/concer ns. If he is not progressing we will need to consider diagnostic arthroscopy and potential repairs as necessary. Unable to obtain adequate information since we are unable to obtain MRI. Jan, Other CONTINUE OFF WORK [employer] Other 10-05-2021 Evaluation note* Encounter Date Diagnosis Assessment Notes Treatment Notes Treatment Clinical Notes Jan, Strain of unspecified muscles, fascia and tendons at forearm level, right arm, initial encounter (ICD-10 - S56.911A) Extensive discussion about current condition and treatment options available. A marcaine / kenalog cortisone injection was performed into the subacromial space under sterile technique. Patient tolerated the injection well with no adverse reaction. Continue gentle motion/strengtheni ng exercises. Patient to continue off work at this time. Jan, Unspecified sprain of right elbow, initial encounter (ICD-10 - S53.401A) Jan, Contusion of left forearm, initial encounter (ICD-10 - S50.12XA) [employer] Other 09-28-2021 Evaluation note* Encounter Date Diagnosis Assessment Notes Treatment Notes Treatment Clinical Notes Dec, Strain of unspecified muscles, fascia and tendons at forearm level, right arm, initial encounter (ICD-10 - S56.911A) CT reviewed with patient today. Discussed with patient we will submitt for approval for cortisone injection into the shoulder to help with pain and motion. Patient instructed on gentle motion and strength exercise. Patient instructed on use of occasional heat to area and motion exercise. Discussed with patient surgical treatment options if there is no relief from the cortisone injection and continued at home exercises. Patient is to be off work CT does not really give us information necessary regarding the shoulder. I would like to consider cortisone injection as well as continued exercise and see how he does. If he continues to have significant pain we will need to consider surgical treatment. I would expect that he may require rotator cuff repair, subacromial decompression as well as possible treatment of labral injury Dec, Unspecified sprain of right elbow, initial encounter (ICD-10 - S53.401A) Dec, Contusion of left forearm, initial encounter (ICD-10 - S50.12XA) [employer] Other 09-22-2021 NotePatient Education Materials Follows: [facility]Gmjhcdff08-63-9889 Note [id number]08-25-2021 NotePatient Education Materials Follows:[facility] HospitalYdguuwsk97-74-5903 NotePatient Education Materials Follows:[facility] HospitalQxqbhafd99-35-0103 NotePatient Education Materials Follows:[facility] HospitalJrbpqbkd81-05-0524 NotePatient Education Materials Follows:[facility] HospitalIbboswys74-50-9868 NoteEducation Materials Elastic Bandage and RICE Therapy Elastic bandages come in different shapes and sizes. They generally provide support to your injury and reduce swelling while you are healing, but they can perform different functions. Your health care provider will help you to decide what is best for your protection, recovery, or rehabilitation after an injury. The routine care of many injuries includes rest, ice, compression, and elevation (RICE therapy). RICE therapy is often recommended for injuries to soft tissues, such as muscle strain, sprains, bruises, and overuse injuries. It can also be used for some bone injuries. Using RICE therapy can help to relieve pain and lessen swelling. What are some general tips for using an elastic bandage? ? Use the bandage as directed by the maker of the bandage that you are using. ? Do not wrap the bandage too tightly. This may block (cut off) the circulation in the arm or leg in the area below the bandage. ? If part of your body beyond the bandage becomes blue, numb, cold, swollen, or more painful, your bandage is probably too tight. If this occurs, remove your bandage and reapply it more loosely. ? Remove and reapply an elastic bandage every 3?4 hours or as told by your health care provider. ? See your health care provider if the bandage seems to be making your problems worse rather than better. How to care for your injury with RICE therapy Rest Rest your injury. This may help with the healing process. Rest usually involves limiting your normal activities and not using the injured part of your body. Generally, you can return to your normal activities when your health care provider says it is okay and you can do them without much discomfort. If you rest the injury too much, it may not heal as well. Some injuries heal better with early movement instead of resting for too long. Talk with your health care provider about how you should limityour activities and whether you should start fphno-ry-cxvjsr exercises for your injury. Ice Ice your injury to lessen swelling and pain. Do not apply ice directly to your skin. ? Put ice in a plastic bag. ? Place a towel between your skin and the bag. ? Leave the ice on for 20 minutes, 2?3 times a day. Use ice on as many days as told by your health care provider. Compression Put pressure (compression) on your injured area to control swelling, give support, and help with discomfort. Compression may be done with an elastic bandage. Elevation Raise (elevate) your injured area to lessen swelling and pain. If possible, elevate your injured area at or above the level of your heart or the center of your chest. Contact a health care provider if: ? Your pain and swelling continue. ? Your symptoms are getting worse rather than improving. Having these problems may mean that you need further evaluation or imaging tests, such as X-rays maxx MRI. Sometimes, X-rays may not show a small broken bone (fracture) until days after the injury happened. Make a follow-up appointment with your health care provider. Ask your health care provider,or the department that is doing the imaging test, when your results will be ready. Get help right away if: ? You have sudden severe pain at or below the area of your injury. ? You have redness or increased swelling around your injury. ? You have tingling or numbness at or below the area of your injury and it does not improve after you remove the elastic bandage. Summary ? Elastic bandages provide support to your injury and reduce swelling while you are healing. Your health care provider will help you decide which type of elastic bandage is best for your injury. ? Do not wrap the bandage too tightly. This may block (cut off) the circulation in the arm or leg in the area below the bandage. ? Putting pressure (compression) on your injured area with an elastic bandage is part of RICE therapy. RICE therapy includes rest, ice, compression, and elevation. This treatment is recommended for the routine care of many injuries. This information is not intended to replace advice given to you by your health care provider. Make sure you discuss any questions you have with your health care provider. Document Revised: 01/04/2018 Document Reviewed: 01/04/2018 [employer] Patient Education ? 2019 [employer]. Dermatology Abrasion An abrasion is a cut or a scrape on the outer surface of the skin. An abrasion does not go through all the layers of the skin. It is important to care for your abrasion properly to prevent infection. What are the causes? This condition is caused by falling on or gliding across the ground or another surface. When your skin rubs on something, the outer and inner layers of skin may rub off. What are the signs or symptoms? The main symptom of this condition is a cut or a scrape. The scrape may be bleeding, or it may (more content not included)...[facility] HospitalFjnzbsyo22-85-6590 [id number]#1.00[facility] 10-27-2020 [facility] SURGERY Clinical Discharge Summary PERSON INFORMATION Name CARMELITA EASTMAN Age 45 Years 1975 Sex MALE Language [place] PCP Misbah Donahue Marital Status Med Service Pain Management Surgery N 17-11-06 Acct# Arrival 10/27/2020 09:18:00 Visit Reason low back pain Acuity LOS 028 20:12 Address: [facility] [place] [address] Comment: PROVIDER INFORMATION VITALS INFORMATION Vital Sign Triage Latest Temp Oral Temp Temporal Temp Intravascular Temp Axillary Temp Rectal 02 Sat 98 % 98 % Respiratory Rate Peripheral Pulse Rate Apical Heart Rate Blood Pressure / 77 mmHg / 77 mmHg Comment: MEDICAL INFORMATION Allergy Info: No known allergies Prescriptions Given: acetaminophen-oxycodone (acetaminophen-oxycodone 325 mg-5 mg oral tablet) 1 tab(s) Oral every day. to last 30 days ok to fill. Refills: 0., oarrs reviewed 10/22/2020 ibuprofen (ibuprofen 200 mg oral capsule) 2 cap(s) Oral Every 4 hours as needed for pain. Medication List: Medications to Continue That Have Not Changed Other Medications acetaminophen-oxycodone (acetaminophen-oxycodone 325 mg-5 mg oral tablet) 1 tab(s) Oral every day. to last 30 days ok to fill. Refills: 0. ibuprofen (ibuprofen 200 mg oral capsule) 2 cap(s) Oral Every 4 hours as needed for pain. Medications to Continue That Have Not Changed Other Medications acetaminophen-oxycodone (acetaminophen-oxycodone 325 mg-5 mg oral tablet) 1 tab(s) Oral every day. to last 30 days ok to fill. Refills: 0. ibuprofen (ibuprofen 200 mg oral capsule) 2 cap(s) Oral Every 4 hours as needed for pain. Medications to Continue That Have Not Changed Other Medications acetaminophen-oxycodone (acetaminophen-oxycodone 325 mg-5 mg oral tablet) 1 tab(s) Oral every day. to last 30 days ok to fill. Refills: 0. ibuprofen (ibuprofen 200 mg oral capsule) 2 cap(s) Oral Every 4 hours as needed for pain. Comment: Lab and Radiology Results Laboratory or Other Results This Visit (last charted value for your 10/27/2020 visit) No Laboratory or Other Results This Visit DIET & ACTIVITY Patient Activity Level: Patient Diet: Patient Activity Restrictions: DISCHARGE INFORMATION Discharge Disposition: Discharge Location: DEPART REASON INCOMPLETE INFORMATION PATIENT EDUCATION INFORMATION Instructions: Follow up: Type Location Start Finish State Pain Post Procedure (MAGR) PAIN MANAGE 11/08/2020 10:30 AM 11/08/2020 11:00 AM Confirmed DIAGNOSIS Chronic back pain; Lumbar spondylosis Comment: PHYS DOC [facility]06-30-2021 NotePatient: CARMELITA EASTMAN Age: 45 years Sex: MALE : 1975 Associated Diagnoses: None Author: Juan Carlos Owusu MD Chief Complaint Low Back Pain Review of Systems Constitutional: Negative. Eye: Negative. Ear/Nose/Mouth/Throat: Negative. Respiratory: Negative. Cardiovascular: Negative. Gastrointestinal: Negative. Genitourinary: Negative. Integumentary: Negative. Neurologic: Negative. Psychiatric: Negative. Health Status Allergies: Allergic Reactions (All) No known allergies, Allergies (1) Active Severity Reaction No known allergies None Documented Current medications: (Selected) Inpatient Medications Ordered Sodium Chloride 0.9% intravenous solution 500 mL: 20 mL/hr, IV Prescriptions Prescribed acetaminophen-oxycodone 325 mg-5 mg oral tablet: 1 tab(s), PO, Daily, to last 30 days ok to fill, 30 tab(s), 0 Refill(s) Documented Medications Documented ibuprofen 200 mg oral capsule: 400 mg = 2 cap(s), PO, q4hr, PRN: for pain, 120 cap(s), 0 Refill(s), Home Medications (2) Active acetaminophen-oxycodone 325 mg-5 mg oral tablet 1 tab(s), PO, Daily ibuprofen 200 mg oral capsule 400 mg = 2 cap(s), PRN, PO, q4hr , Medications (1) Active Scheduled: (0) Continuous: (1) Sodium Chloride 0.9% intravenous solution 500 mL 500 mL, IV, 20 mL/hr PRN: (0) Problem list (past medical history): No problem items selected or recorded., No qualifying data available Histories Family History: No family history items have been selected or recorded. Procedure history: Facet joint nerve block ([id number]) on 10/27/2020 at 45 Years. Comments: 10/27/2020 9:10 Araseli Lord BILATERAL LUMBAR MEDIAL BRANCH BLOCK T12,L1,L2,L3 Epidural steroid injection ([id number]) on 09/15/2020 at 45 Years. Comments: 09/15/2020 10:13 Araseli Lord CAUDAL EPIDURAL STEROID INJECTION Stimulator, device ([id number]) on 04/30/2014 at 38 Years. Comments: 09/22/2020 9:08 Swapna Goodwin stimulator low back placed 2015 Fusion of L4,L5,S1 fused ([id number]) on 04/30/2007 at 31 Years. Cage ([id number]). Comments: 09/22/2020 9:08 Swapna Goodwin bilateral fused cage Social History Social & Psychosocial Habits Alcohol 03/05/2020 Alcohol Use: Current Frequency: 1-2 times per month Employment/School 03/05/2020 Status: Employed Substance Abuse 03/05/2020 Substance use: Current Frequency: Daily Comment: PRESCRIBED FOR DPN - 03/05/2020 11:23 - Regla SIMON, Sam Desouza Tobacco 03/05/2020 Smoking tobacco use: Never (less than 100 in l Electronic Cigarette/Vaping 03/05/2020 Electronic Cigarette Use: Never . Physical Examination VS/Measurements Vital Signs 10/27/2020 10:19 EDT Temperature Temporal Artery 36.6 DegC Peripheral Pulse Rate 67 bpm Respiratory Rate 20 br/min Systolic Blood Pressure 120 mmHg Diastolic Blood Pressure 77 mmHg SpO2 98 % Oxygen Therapy Room air , Vital Signs (last 24 hrs) Last Charted Heart Rate Peripheral 67 bpm (OCT 27 10:) Resp Rate 20 br/min (OCT 27:) SBP 120 mmHg (OCT 27:) DBP 77 mmHg (OCT 27:) Weight 125.70 kg (OCT 27 10:) Height 175.26 cm (OCT 27 10:) , Measurements from flowsheet : Measurements 10/27/2020 10:19 EDT Height 175.260 cm Height/Length Dosing 175.260 cm Weight 125.700 kg Weight Dosing 125.700 kg Body Mass Index 40.920 kg/m2 General: Alert and oriented. Eye: Pupils are equal, round and reactive to light. HENT: Normocephalic. Neck: Supple. Respiratory: Lungs are clear to auscultation. Cardiovascular: Normal rate. Gastrointestinal: Soft, Non-tender, Non-distended. Integumentary: Warm, Dry, [place]. Neurologic: Alert, Oriented. Psychiatric: Cooperative. Impression and Plan Low Back Pain Lumbar Spondylosis Procedure explained to patient along with risks of possible complications and patient wishes to proceed. [Electronically Signed on: 10/27/2020 10:34 EDT] Juan Carlos Owusu MD [Verified on: 10/27/2020 10:34 EDT] [facility]05-27-2021 Note [id number]05-21-2021 [id number]#1.00[facility] 09-15-2020 [facility] SUR[facility]ERY Clinical Discharge Summary PERSON INFORMATION Name CARMELITA EASTMAN Age 45 Years 1975 Sex MALE Language [place] PCP Misbah Donahue Marital Status Med Service Pain Management Surgery Acct# Arrival 09/15/2020 08:10:15 Visit Reason low back pain Acuity LOS 012 19:37 Address: [address] [place] [address] [place] [address] Comment: PROVIDER INFORMATION VITALS INFORMATION Vital Sign Triage Latest Temp Oral Temp Temporal Temp Intravascular Temp Axillary Temp Rectal 02 Sat 96 % 97 % Respiratory Rate Peripheral Pulse Rate Apical Heart Rate Blood Pressure / 98 mmHg / 89 mmHg Comment: MEDICAL INFORMATION Allergy Info: No known allergies Prescriptions Given: ondansetron (Zofran ODT 4 mg oral tablet, disintegrating) 1 tab(s) Oral Every 8 hours as needed as needed for nausea/vomiting. Refills: 0. tamsulosin (Flomax 0.4 mg oral capsule) 1 cap(s) Oral every day for 14 Days. Refills: 0. traZODone (traZODone 50 mg oral tablet) 1 tab(s) Oral once a day (at bedtime). Refills: 3. Medication List: Medications to Continue That Have Not Changed Other Medications ondansetron (Zofran ODT 4 mg oral tablet, disintegrating) 1 tab(s) Oral Every 8 hours as needed as needed for nausea/vomiting. Refills: 0. tamsulosin (Flomax 0.4 mg oral capsule) 1 cap(s) Oral every day for 14 Days. Refills: 0. traZODone (traZODone 50 mg oral tablet) 1 tab(s) Oral once a day (at bedtime). Refills: 3. Medications to Continue That Have Not Changed Other Medications ondansetron (Zofran ODT 4 mg oral tablet, disintegrating) 1 tab(s) Oral Every 8 hours as needed as needed for nausea/vomiting. Refills: 0. tamsulosin (Flomax 0.4 mg oral capsule) 1 cap(s) Oral every day for 14 Days. Refills: 0. traZODone (traZODone 50 mg oral tablet) 1 tab(s) Oral once a day (at bedtime). Refills: 3. Medications to Continue That Have Not Changed Other Medications ondansetron (Zofran ODT 4 mg oral tablet, disintegrating) 1 tab(s) Oral Every 8 hours as needed as needed for nausea/vomiting. Refills: 0. tamsulosin (Flomax 0.4 mg oral capsule) 1 cap(s) Oral every day for 14 Days. Refills: 0. traZODone (traZODone 50 mg oral tablet) 1 tab(s) Oral once a day (at bedtime). Refills: 3. Comment: Lab and Radiology Results Laboratory or Other Results This Visit (last charted value for your 09/15/2020 visit) No Laboratory or Other Results This Visit DIET & ACTIVITY Patient Activity Level: Patient Diet: Patient Activity Restrictions: DISCHARGE INFORMATION Discharge Disposition: Discharge Location: DEPART REASON INCOMPLETE INFORMATION PATIENT EDUCATION INFORMATION Instructions: Follow up: Type Location Start Finish State Secured Appointment Type Secured Location 09/21/2020 1:00 PM 09/21/2020 1:15 PM Confirmed DIAGNOSIS Low back pain; Lumbar neuritis Comment: PHYS DOC [facility]05-18-2021 Note [id number] The patient has been examined and the medical record reviewed. The indications for surgery and examare unchanged. [Electronically Signed on: 09/15/2020 09:45 EDT] Juan Carlos Owusu MD [Verified on: 09/15/2020 09:45 EDT] Juan Carlos Owusu MD [Transcribed on: 09/14/2020 12:47 EDT] [facility]; [facility] ([facility]) Other Evaluation note* Diagnosis Flank pain- Primary Abdominal pain, unspecified site Colon cancer screening Special screening for malignant neoplasms, colon documented in this encounter [facility] [employer] Work Phone: evaluation noteNo assessment information available [facility] Work Phone: Evaluation note* Diagnosis Colon cancer screening Special screening for malignant neoplasms, colon documented in this encounter [facility] [employer] Work Phone: evaluation note* Diagnosis Kidney stone- Primary Calculus of kidney documented in this encounter [facility] Narrative - Reported* Type Description Date Medical History insulin resistance Medical History wt gain Medical History Post traumatic stress disorder Medical History anxiety disorder Medical History kidney stones Medical History depression Medical History stomach ulcer Medical History Migraines Medical History Low testosterone Medical History Sweating disease Medical History Unspecified vitamin D deficiency Medical History Hypogonadotropic hypogonadism Medical History Obesity Medical History Esophagitis, other specified typ e Medical History Gastroenteritis NOS Medical History Osmotic diarrhea Medical History back injury Surgical History back Sx 2007 Surgical History left and right shoulder rotator cuff repair 2004, 2007 Surgical History Procedure:EGD with b iopsy;Disease:colitis, esophagitis, min.patchy gastritis 2011 Surgical History 2 lower hernia operations 1985, 1986 Surgical History Procedure:Back surgery;Disease: 2008 Surgical History Rt shoulder sx 2007 Surgical History back Sx 05/2008 Surgical History lower back surgery/disc repair 2008 Surgical History Procedure:Hernia repair;Disease : 1983 Surgical History bilateral si joint fusion 07/07 Surgical History lithotripsy x 2 1995, 2010 Surgical History back surgery-cage and 6 screws placed 2009 Surgical History back surgery L4 L5 fusion 2009 Surgical History removal of obstructed stones in kidney 04/2018 Surgical History S1 fusion with a cage 2010 Surgical History SCS ([place]) REPROGRAMMED JAN 292011 Surgical History DOUBLE SI JOINT FUSION 2015 Surgical History EPIDURAL INJ 06/2018 Surgical History kidney stone removal X's2 nd07/19 Surgical History spinal cord stimulator 2015 Surgical History right shoulder arthr oscopy, posterior superior labral tear using 2 arthrex knotless anchors, excessive debridement bursal sided supraspinatus rotator cuff tear, subacromial decompression Hospitalization History kidney stones 04/2018 Hospitalization History Food poisoning 02/2019 Hospitalization History see surgical hx [facility] Other History general Narrative - Reported* Type Description Date Medical History insulin resistance Medical History wt gain Medical History Post traumatic stress disorder Medical History anxiety disorder Medical History kidney stones Medical History depression Medical History stomach ulcer Medical History Migraines Medical History Low testosterone Medical History Sweating disease Medical History Unspecified vitamin D deficiency Medical History Hypogonadotropic hypogonadism Medical History Obesity Medical History Esophagitis, other specified typ e Medical History Gastroenteritis NOS Medical History Osmotic diarrhea Medical History back injury Surgical History back Sx 2007 Surgical History left and right shoulder rotator cuff repair 2004, 2007 Surgical History Procedure:EGD with b iopsy;Disease:colitis, esophagitis, min.patchy gastritis 2011 Surgical History 2 lower hernia operations 1985, 1986 Surgical History Procedure:Back surgery;Disease: 2008 Surgical History Rt shoulder sx 2007 Surgical History back Sx 05/2008 Surgical History lower back surgery/disc repair 2008 Surgical History Procedure:Hernia repair;Disease : 1983 Surgical History bilateral si joint fusion 07/07 Surgical History lithotripsy x 2 1995, 2010 Surgical History back surgery-cage and 6 screws placed 2009 Surgical History back surgery L4 L5 fusion 2009 Surgical History removal of obstructed stones in kidney 04/2018 Surgical History S1 fusion with a cage 2010 Surgical History SCS ([place]) REPROGRAMMED JAN 292011 Surgical History DOUBLE SI JOINT FUSION 2015 Surgical History EPIDURAL INJ 06/2018 Surgical History kidney stone removal 01/16 Surgical History spinal cord stimulator 2015 Hospitalization History kidney stones 04/2018 Hospitalization History Food poisoning 02/2019 Hospitalization History see surgical hx [facility] Other Hospital Discharge instructions* Attachments The following attachments cannot be sent through Care Everywhere. * Flank Pain ([place]) documented in this encounter[facility] [employer] Work Phone: Hospital Discharge instructions Additional Instructions As we discussed, there were some white blood cells in your urine. This can be seen with a stent, but I cannot say that there is no infection until the urine culture is back in 2 days. I am going to put you on antibiotics. I am also going to start you on Flomax for possible stent related pain. I will prescribe you medicine for pain as well. You can call [facility] later this morning to see if they will see you in the office about this problem. I hope that they will. If not, you will need to follow-up with the urologist in [place].[facility] Work Phone: Hospital Discharge instructions Additional Instructions Take oxybutynin as instructed Complete the dose of your Levaquin Percocets for severe pain You cannot work or drive when taking Percocet Tylenol or Motrin for minor pain Follow-up with Dr. Durand who placed the stent Return here if you develop any fever, chills, increased pain or any other concernFostoria [facility] Work Phone: Hospital Discharge instructions Additional Instructions Thankfully there is no sign of a kidney stone or of an infection today. Your pain seems to be from your back. I have prescribed some medicine for you. Follow-up with your doctor. [facility] Work Phone: Summary Purpose Family History No Family History Records Found Relationship Condition Age at Onset Recorded Date/T cecilia father Chronic obstructive pulmonary disease Unk nown brother Calculus of kidney Unknown Advance Directives No Advanced Directives Records Found Advance Directive Response Recorded Date/ Time Advance Directives No February 6:40am Latest Code Status on File Code Status Date Activated Date Inactivated Comments Full Code 07/07/2014 5:10 PM 07/08/2014 5:01 PM Advance Directive Response Recorded Date/ Time Advance Directives No February 7:40am Latest Code Status on File Code Status Date Activated Date Inactivated Comments Full Code 07/07/2014 5:10 PM 07/08/2014 5:01 PM Documents on File Type Date Recorded Patient Rail Loader Expl anation ACP-Advance Directive 02/02/2022 10:10 AM Latest Code Status on File Code Status Date Activated Date Inactivated Comments Full Code 11/09/2022 12:57 PM Code Status History Code Status Date Activated Date Inactivated Comments Full Code 10/23/2022 6:27 AM 10/23/2022 1:02 PM Full Code 10/06/2022 5:37 AM 10/09/2022 4:17 PM Full Code 07/07/2014 5:10 PM 07/08/2014 5:01 PM Chief Complaint and Reason for Visit Chief Complaint Back Pain Tailbone Pain Chief Complaint r79.89 rt side lower abd pain, lower back pain Chief Complaint Kidney Stone issues Chief Complaint Kidney Stone issues lt side pain Chief Complaint Abd Pain Assessments No Assessments Information AvailableNo Assessments Information AvailableNo Assessments Information Available Additional Source Comments (unrecognized sect ion and content) No Status Records FoundNo Status Records FoundNo Status Records FoundNo Status Records FoundNo Status Records FoundNo Status Records FoundNo Status Records FoundNo Status Records Found INFORMATION SOURCE (unrecogn ized section and content) DATE CREATED AUTHOR 10/18/2017 [facility] DATE CREATED AUTHOR AUTHOR'S ORGANIZ ATION 01/03/2019 [facility] DATE CREATED AUTHOR AUTHOR'S ORGANIZ ATION 11/20/2019 [facility] DATE CREATED AUTHOR AUTHOR'S ORGANIZ ATION 05/07/2021 [facility] DATE CREATED AUTHOR AUTHOR'S ORGANIZ ATION 05/24/2022 [facility] DATE CREATED AUTHOR AUTHOR'S ORGANIZ ATION 02/11/2023 [facility] DATE CREATED AUTHOR AUTHOR'S ORGANIZ ATION 04/02/2023 [facility] DATE CREATED AUTHOR AUTHOR'S ORGANIZ ATION 04/16/2023 [facility] REASON FOR VISIT (unrecogniz ed section and content) Reason Comments Abdominal Pain Pt c/o mid abd pain that goes to rt flank, hx. kidney stones Specialty Diagnoses / Procedures Referred By Carmen curry Referred To Contact Diagnoses Colon cancer screening Colon cancer screening [Z12.11] Procedures TN COLON CA SCRN NOT HI RSK IND TN COLONOSCOPY FLX DX W/COLLJ SPEC WHEN PFRMD TN COLSC FLX W/RMVL OF TUMOR POLYP LESION SNARE TQ TN COLONOSCOPY W/BIOPSY SINGLE/MULTIPLE COLORECTAL CANCER SCREENING, NOT HIGH RISK Brock Leal MD [address] [place] [address] [facility] [address] [place] [address] Referral ID Status Reason Start Date Expiration Date Visits Re quested Visits Authorized [id number] 1 1 Specialty Diagnoses / Procedures Referred By Carmen curry Referred To Contact Diagnoses Kidney stone Kidney stone [N20.0] Procedures TN CYSTO W/SIMPLE REMOVAL STONE & STENT TN CYSTO W/SIMPLE REMOVAL STONE & STENT FLEXIBLE CYSTOSCOPY, LEFT DOUBLE J STENT REMOVAL / MAC / RECENT LABS DONE AT [facility] 11-02-22 ([place] Fara López MD [address] [place] [address] [facility] [address] [place] [address] Referral ID Status Reason Start Date Expiration Date Visits Re quested Visits Authorized [id number] 1 1 Scheduled Active and Recently Administ ered Medications (unrecognized section and content) Medication Order 12/28/2021 12/29/2021 12/30/2021 0.9 % sodium chloride bolus (COMPLETED) 1,000 mL (8.48 mL/kg), IntraVENous, at 495.9 mL/hr, Administer over 121 Minutes, ONCE, On Sun12/30/21 at 1328, For 1 dose 135 (New Bag - Prov ider: Myrtle Castillo RN)164 (Stopped - Provider: Shy Pickard RN) HYDROmorphone (DILAUDID) injection 1 mg (COMPLETED) HYDROmorphone (DILAUDID) 1.5mg IV is equivalent to morphine 10mg IV, 1 mg, IntraVENous, ONCE, 1 dose, On Sun12/30/21 at 1639, If oral and IV narcotics ordered, use oral first and only use IV if oral is ineffective or cannot take oral. Do Not give oral and IV within 1 hour of each other unless specifically ordered. 165 (Given - Provid er: Shy Pickard RN) morphine sulfate (PF) injection 4 mg (COMPLETED) 4 mg, IntraVENous, ONCE, 1 dose, On Sun12/30/21 at 1328, If oral and IV narcotics ordered, use oral first and only use IV if oral is ineffective or cannot take oral. Do Not give oral and IV within 1 hour of each other unless specifically ordered. 1358 (Given - Provid er: Myrtle Castillo RN) ondansetron (ZOFRAN) injection 4 mg (COMPLETED) 4 mg, IntraVENous, ONCE, 1 dose, On Sun12/30/21 at 1328 1358 (Given - Provid er: Myrtle Castillo RN) ondansetron (ZOFRAN) injection 4 mg (COMPLETED) 4 mg, IntraVENous, ONCE, 1 dose, On Sun12/30/21 at 1639 1653 (Given - Provid er: Shy Pickard RN) PRN Medication Order 12/28/2021 12/29/2021 12/30/2021 iopamidol (ISOVUE-300) 61 % injection 50 mL (COMPLETED) 50 mL, IntraVENous, IMG ONCE PRN, 1 dose, Starting on Sun12/30/21 at 1531, Until Sun12/30/21 at 1554, Other 1554 (Given - Provid er: Jany Lance) Scheduled Medication Order 01/30/2022 01/31/2022 02/01/2022 sodium chloride flush 0.9 % injection 5-40 mL 5-40 mL, IntraVENous, EVERY 12 HOURS SCHEDULED (2 times per day), First dose on Sun02/01/22 at 2100, Until Discontinued, For Line Patency: Peripheral IV = 5 mL; Midline or Central Line = 10 mL/lumen. If following IV push medication, administer flush at same rate as the IV push. Flush volume is determined by type of infusion therapy being given. For non-viscous solutions use: Peripheral IV = 5 mL Midline or Central Line = 10 mL/lumen For viscous solutions (i.e. blood components, parenteral nutrition, contrast media, or after obtaining blood sample) use: Peripheral IV = 10 mL Midline or Central Line = 20 mL/lumen, PACU only 2100 (Due) Continuous Medication Order 01/30/2022 01/31/2022 02/01/2022 0.9 % sodium chloride infusion IntraVENous, at 100 mL/hr, CONTINUOUS, Starting on Sun02/01/22 at 1030 1020 (New Bag - Prov ider: Jonathan Chávez RN)1106 (NoRateChange - Provider: CHRISTA Campbell CRNA)1129 (Anesthesia Volume Adjustment - Provider: CHRISTA Campbell CRNA) PRN Medication Order 01/30/2022 01/31/2022 02/01/2022 0.9 % sodium chloride infusion IntraVENous, at 5-250 mL/hr, PRN, if patient receiving piggyback infusions and maintenance fluids are not ordered OR KVO fluids to protect IV site / prevent frequent line interruptions/ long duration, Starting on Sun02/01/22 at 1156, For piggyback infusion, administer at same rate as piggyback for a total of 25 mL. Enter 25 mL into dose field and piggyback rate into rate field of order. If piggyback is infusing at a rate less than 100 mL/hr, enter 25 mL into dose field and 100 mL/hr into rate field of order. For KVO fluids, enter rate of 20 mL/hr or less into rate field of order., PACU only simethicone (MYLICON) 40 MG/0.6ML drops (CANCELED) PRN, Starting on Sun02/01/22 at 1040, Until Sun02/01/22 at 1132, Intra-op 1040 (Given - Provid er: Brock Leal MD - Comment: dose is approx, irrigated with sterile water) sodium chloride flush 0.9 % injection 5-40 mL 5-40 mL, IntraVENous, PRN, Starting on Sun02/01/22 at 1156, Until Discontinued, Line Care, After every IV line use, For Line Patency: Peripheral IV = 5 mL; Midline or Central Line = 10 mL/lumen. If following IV push medication, administer flush at same rate as the IV push. Flush volume is determined by type of infusion therapy being given. For non-viscous solutions use: Peripheral IV = 5 mL Midline or Central Line = 10 mL/lumen For viscous solutions (i.e. blood components, parenteral nutrition, contrast media, or after obtaining blood sample) use: Peripheral IV = 10 mL Midline or Central Line = 20 mL/lumen, PACU only sterile water for irrigation (CANCELED) PRN, Starting on Sun02/01/22 at 1040, Intra-op 1040 (Given - Provid er: Brock Leal MD) Scheduled Medication Order 11/07/2022 11/08/2022 11/09/2022 cefTRIAXone (ROCEPHIN) 1,000 mg in sodium chloride 0.9 % 50 mL IVPB (mini-bag) (COMPLETED) 1,000 mg, IntraVENous, TRAVELING REPAIR ACCOUNTANT TO O.R., 1 dose, On Bridget 11/09/22 at 1315, Antimicrobial Indications: Surgical Prophylaxis, Administer within 1 hour prior to incision., Pre-op (day of surgery) 1409 (New Bag - Prov ider: Suni Garcia, DO) oxyCODONE capsule 5 mg (COMPLETED) 5 mg, Oral, ONCE, 1 dose, On Bridget 11/09/22 at 1500 1440 (Given - Provid er: Lina Hung RN) sodium chloride flush 0.9 % injection 5-40 mL 5-40 mL, IntraVENous, EVERY 12 HOURS SCHEDULED (2 times per day), First dose on Bridget 11/09/22 at 2100, Until Discontinued, For Line Patency: Peripheral IV = 5 mL; Midline or Central Line = 10 mL/lumen. If following IV push medication, administer flush at same rate as the IV push. Flush volume is determined by type of infusion therapy being given. For non-viscous solutions use: Peripheral IV = 5 mL Midline or Central Line = 10 mL/lumen For viscous solutions (i.e. blood components, parenteral nutrition, contrast media, or after obtaining blood sample) use: Peripheral IV = 10 mL Midline or Central Line = 20 mL/lumen, Pre-op (day of surgery) 2100 (Due) sodium chloride flush 0.9 % injection 5-40 mL 5-40 mL, IntraVENous, EVERY 12 HOURS SCHEDULED (2 times per day), First dose on Bridget 11/09/22 at 2100, Until Discontinued, For Line Patency: Peripheral IV = 5 mL; Midline or Central Line = 10 mL/lumen. If following IV push medication, administer flush at same rate as the IV push. Flush volume is determined by type of infusion therapy being given. For non-viscous solutions use: Peripheral IV = 5 mL Midline or Central Line = 10 mL/lumen For viscous solutions (i.e. blood components, parenteral nutrition, contrast media, or after obtaining blood sample) use: Peripheral IV = 10 mL Midline or Central Line = 20 mL/lumen, Post-op 2100 (Due) sodium chloride flush 0.9 % injection 5-40 mL 5-40 mL, IntraVENous, EVERY 12 HOURS SCHEDULED (2 times per day), First dose on Bridget 11/09/22 at 2100, Until Discontinued, For Line Patency: Peripheral IV = 5 mL; Midline or Central Line = 10 mL/lumen. If following IV push medication, administer flush at same rate as the IV push. Flush volume is determined by type of infusion therapy being given. For non-viscous solutions use: Peripheral IV = 5 mL Midline or Central Line = 10 mL/lumen For viscous solutions (i.e. blood components, parenteral nutrition, contrast media, or after obtaining blood sample) use: Peripheral IV = 10 mL Midline or Central Line = 20 mL/lumen, PACU only 2100 (Due) Continuous Medication Order 11/07/2022 11/08/2022 11/09/2022 lactated ringers IV soln infusion IntraVENous, at 125 mL/hr, CONTINUOUS, Starting on Bridget 11/09/22 at 1445, PACU only 1445 (Due) PRN Medication Order 11/07/2022 11/08/2022 11/09/2022 0.9 % sodium chloride infusion IntraVENous, at 5-250 mL/hr, PRN, if patient receiving piggyback infusions and maintenance fluids are not ordered OR KVO fluids to protect IV site / prevent frequent line interruptions/ long duration, Starting on Bridget 11/09/22 at 1257, For piggyback infusion, administer at same rate as piggyback for a total of 25 mL. Enter 25 mL into dose field and piggyback rate into rate field of order. If piggyback is infusing at a rate less than 100 mL/hr, enter 25 mL into dose field and 100 mL/hr into rate field of order. For KVO fluids, enter rate of 20 mL/hr or less into rate field of order., Pre-op (day of surgery) 0.9 % sodium chloride infusion IntraVENous, at 5-250 mL/hr, PRN, if patient receiving piggyback infusions and maintenance fluids are not ordered OR KVO fluids to protect IV site / prevent frequent line interruptions/ long duration, Starting on Bridget 11/09/22 at 1426, For piggyback infusion, administer at same rate as piggyback for a total of 25 mL. Enter 25 mL into dose field and piggyback rate into rate field of order. If piggyback is infusing at a rate less than 100 mL/hr, enter 25 mL into dose field and 100 mL/hr into rate field of order. For KVO fluids, enter rate of 20 mL/hr or less into rate field of order., Post-op 0.9 % sodium chloride infusion IntraVENous, at 5-250 mL/hr, PRN, if patient receiving piggyback infusions and maintenance fluids are not ordered OR KVO fluids to protect IV site / prevent frequent line interruptions/ long duration, Starting on Bridget 11/09/22 at 1425, For piggyback infusion, administer at same rate as piggyback for a total of 25 mL. Enter 25 mL into dose field and piggyback rate into rate field of order. If piggyback is infusing at a rate less than 100 mL/hr, enter 25 mL into dose field and 100 mL/hr into rate field of order. For KVO fluids, enter rate of 20 mL/hr or less into rate field of order., PACU only diphenhydrAMINE (BENADRYL) injection 12.5 mg 12.5 mg, IntraVENous, ONCE PRN, 1 dose, Starting on Bridget 11/09/22 at 1425, Until Sun11/10/22 at 1425, Itching, PACU only droperidol (INAPSINE) injection 0.625 mg 0.625 mg, IntraVENous, ONCE PRN, 1 dose, Starting on Bridget 11/09/22 at 1425, Until Sun11/10/22 at 1425, Nausea, Secondary antiemetic therapy., PACU only fentaNYL (SUBLIMAZE) injection 50 mcg 50 mcg, IntraVENous, EVERY 5 MIN PRN, 4 doses, Starting on Bridget 11/09/22 at 1425, Until Discontinued, Pain Moderate (4-6), For Phase I. If Phase II oral narcotics have been administered in the last 60 minutes, do not administer IV narcotics unless specifically approved by provider., PACU only hydrALAZINE (APRESOLINE) injection 10 mg 10 mg, IntraVENous, EVERY 15 MIN PRN, 2 doses, Starting on Bridget 11/09/22 at 1425, Until Discontinued, High Blood Pressure, for SBP greater than 180 mmHg for 2 consecutive measurements taken from different sites, Inform provider if SBP is still greater than 180 mmHg 10 minutes after second antihypertensive dose is administered., PACU only HYDROmorphone HCl PF (DILAUDID) injection 0.5 mg 0.5 mg, IntraVENous, EVERY 10 MIN PRN, 2 doses, Starting on Bridget 11/09/22 at 1425, Until Discontinued, Pain Severe (7-10), For Phase I. If Phase II oral narcotics have been administered in the last 60 minutes, do not administer IV narcotics unless specifically approved by provider., PACU only lidocaine (XYLOCAINE) 2 % uro-jet PRN, Starting on Bridget 11/09/22 at 1414, Intra-op 1414 (Given - Provid er: Fara López MD - Comment: urethra) meperidine (DEMEROL) injection 12.5 mg 12.5 mg, IntraVENous, EVERY 5 MIN PRN, 4 doses, Starting on Bridget 11/09/22 at 1425, Until Discontinued, Shivering, , May give every 5 minutes to max of 50mg., PACU only prochlorperazine (COMPAZINE) injection 5 mg 5 mg, IntraVENous, ONCE PRN, 1 dose, Starting on Bridget 11/09/22 at 1425, Until Sun11/10/22 at 1425, Nausea, Initial antiemetic therapy., PACU only sodium chloride flush 0.9 % injection 5-40 mL 5-40 mL, IntraVENous, PRN, Starting on Bridget 11/09/22 at 1257, Until Discontinued, Line Care, After every IV line use, For Line Patency: Peripheral IV = 5 mL; Midline or Central Line = 10 mL/lumen. If following IV push medication, administer flush at same rate as the IV push. Flush volume is determined by type of infusion therapy being given. For non-viscous solutions use: Peripheral IV = 5 mL Midline or Central Line = 10 mL/lumen For viscous solutions (i.e. blood components, parenteral nutrition, contrast media, or after obtaining blood sample) use: Peripheral IV = 10 mL Midline or Central Line = 20 mL/lumen, Pre-op (day of surgery) sodium chloride flush 0.9 % injection 5-40 mL 5-40 mL, IntraVENous, PRN, Starting on Bridget 11/09/22 at 1426, Until Discontinued, Line Care, After every IV line use, For Line Patency: Peripheral IV = 5 mL; Midline or Central Line = 10 mL/lumen. If following IV push medication, administer flush at same rate as the IV push. Flush volume is determined by type of infusion therapy being given. For non-viscous solutions use: Peripheral IV = 5 mL Midline or Central Line = 10 mL/lumen For viscous solutions (i.e. blood components, parenteral nutrition, contrast media, or after obtaining blood sample) use: Peripheral IV = 10 mL Midline or Central Line = 20 mL/lumen, Post-op sodium chloride flush 0.9 % injection 5-40 mL 5-40 mL, IntraVENous, PRN, Starting on Bridget 11/09/22 at 1425, Until Discontinued, Line Care, After every IV line use, For Line Patency: Peripheral IV = 5 mL; Midline or Central Line = 10 mL/lumen. If following IV push medication, administer flush at same rate as the IV push. Flush volume is determined by type of infusion therapy being given. For non-viscous solutions use: Peripheral IV = 5 mL Midline or Central Line = 10 mL/lumen For viscous solutions (i.e. blood components, parenteral nutrition, contrast media, or after obtaining blood sample) use: Peripheral IV = 10 mL Midline or Central Line = 20 mL/lumen, PACU only sterile water for irrigation PRN, Starting on Bridget 11/09/22 at 1416, Intra-op 1416 (Given - Provid er: Fara López MD) Care Teams (unrecognized sec tion and content) Team Status: Active Member Role Status Dates Wallace Corbin DO Primary Care Provider Active Team Status: Inactive Member Role Status Dates Wallace Corbin DO Primary Care Provider Active Sam Mccoy Jr, MD Emergency Provider Active Storage Management Consultant Relationship Specialty Start Date End Date Wallace Corbin DO [address] [place] [id number] PCP - General Family Medicine 12/22/21 Team Status: Inactive Member Role Status Dates Paulie Boo DO Primary Care Provider, Attending Provider Active Team Status: Inactive Member Role Status Dates Wallace Corbin DO Primary Care Provider Active NICOLE Garcia- Emergency Provider Active Storage Management Consultant Relationship Specialty [place] [address] [place] [address] [phone] PCP - General Family Medicine 12/22/21 Team Status: Inactive Member Role Status Dates Wallace Corbin DO Primary Care Provider Active Ana Maria Loera APRN Emergency Provider Active Storage Management Consultant Relationship Specialty Start Date End Date Wallace Corbin DO [address] [id number] PCP - General Family Medicine 12/22/21 Goals (unrecognized section and content) Goals may be documented in a n alternate section <item> Privacy Markings (unrecogniz ed section and content) Section Author: Michelle Cortes PROHIBITION ON REDISCLOSURE OF CONFIDENTIAL INFORMATION This notice accompanies a disclosure of information concerning a client made to you with the consent of such client. FOR RECORDS PERTAINING TO PATIENTS WHO ARE OR HAVE BEEN ENROLLED IN A CHEMICAL DEPENDENCY/SUBSTANCEABUSE PROGRAM, SOME INFORMATION MAY BE OMITTED. This clinical summary was aggregated from multiple sources. Caution should be exercised in using it in the provision of clinical care. This summary normalizes information from multiple sources, and as a consequence, information in this document may materially change the coding, format and clinical context of patient data. In addition, data may be omitted in some cases. CLINICAL DECISIONS SHOULD BE BASED ON THE PRIMARY CLINICAL RECORDS. [facility]. provides no warranty or guarantee of the accuracy or completeness of information in this document.
[2023-07-03 18:12] VITALS: BP 143/96; PULSE 72; RESP 12; TEMP 36.9; O2SAT 96; BMI 34.4
[2023-07-03 18:47] LABS: Bilirubin Urine NEGATIVE (NEGATIVE); Blood Urine NEGATIVE (NEGATIVE); Clarity Urine CLEAR (CLEAR); Color Urine LT. YELLOW (YELLOW); Glucose Urine UA NEGATIVE (NEGATIVE); Ketones Urine NEGATIVE (NEGATIVE); Leukocyte Esterase Urine NEGATIVE (NEGATIVE); Nitrite Urine NEGATIVE (NEGATIVE); Protein Urine NEGATIVE (NEG/TRACE); Specific Gravity Urine 1.015 (1.005-1.025); Urobilinogen Urine 0.2 EU/dL (0.2-1.0); pH Urine 6.5 (5.0-9.0)
[2023-07-03 18:49] LABS: Urine Microscopic Indicated NO
--- NOTE | 2023-07-03 18:51 | CT_ITS ---
[facility] [place] [id number] Patient Name: CARMELITA INGRAM MRN: [facility]:[id number] date: 1975 Sex: M Assigned Patient Location: ER Current Patient Location: ER Accession/Order Number: [id number] Exam Date: 07/03/2023 19:14 Report Date: 07/03/2023 20:19 At the request of: STORM OHARA Procedure: CT abdomen pelvis wo con EXAMINATION: CT abdomen pelvis wo con, 07/03/2023 4:14 PM PST HISTORY: Flank pain COMPARISON: None. TECHNIQUE: CT scan of the abdomen and pelvis was performed without IV contrast. CT dose reduction technique was used, including Automated Exposure Control. FINDINGS: Lung: No significant finding. Liver: No significant finding. Gallbladder: No significant finding. Spleen: No significant finding. Pancreas: No significant finding. Adrenal glands: No significant finding. Kidneys, ureters and bladder: Nonobstructive bilateral renal calculi measuring up to 1 cm on the left. Mild circumferential bladder wall thickening. Bowel: No evidence of bowel obstruction. Normal appendix. Colonic diverticulosis without diverticulitis. Peritoneum/retroperitoneum: No significant finding. Lymph nodes: No significant finding. Vessels: No significant finding. Body wall: No significant finding. Reproductive: No significant finding. Bones: Bilateral iliosacral fixation screws. Lumbosacral fusion hardware. Spinal cord stimulator noted. CT/CT abdomen pelvis wo con IMPRESSION: Nonobstructive bilateral renal calculi measuring up to 1 cm on the left. Bladder wall thickening, correlate for cystitis. Electronically authenticated by: ASHLEIGH CARABALLO Date: 07/03/2023 20:19
--- NOTE | 2023-07-03 18:54 | ED.GENADUL1 ---
HPI - General Adult General Chief complaint: Urogenital-Male Stated complaint: FLANK PAIN Time Seen by Provider: 07/03/23 18:47 Source: patient Mode of arrival: walk-in Limitations: no limitations History of Present Illness HPI narrative: Patient is a 47-year-old male who presents to the emergency department For the evaluation of possible kidney stone. He reports increasing pain over the last 2 days to the right flank. He denies abdominal pain, fevers, chills. He has had nausea but no vomiting. He reports decreased urination and pressure with urination. No blood. He has had multiple kidney stones in the past and states this feels similar. No medications taken prior to arrival. Related Data Previous Rx's Medication Instructions Recorded ciprofloxacin HCl 500 mg tablet 500 mg PO Q12H #10 tabs 07/03/23 ketorolac 10 mg tablet 10 mg PO TID PRN pain #10 tabs 07/03/23 ondansetron 4 mg disintegrating 4 mg PO Q6H PRN nausea and 07/03/23 tablet vomiting #12 tabs oxycodone-acetaminophen 5 mg-325 1 tab PO Q4H PRN pain 3 days #15 07/03/23 mg tablet (Percocet) tabs Allergies Allergy/AdvReac Type Severity Reaction Status Date / Time No Known Drug Allergies Allergy Verified 07/03/23 18:11 Review of Systems ROS Constitutional Denies: fever or chills Ears, nose, mouth, and throat Denies: throat pain or nasal congestion Cardiovascular Denies: chest pain Respiratory Denies: shortness of breath or cough Gastrointestinal Reports: nausea; Denies: abdominal pain, vomiting or diarrhea Genitourinary Reports: painful urination Musculoskeletal Reports: back pain; Denies: neck pain Integumentary/Breast Denies: rash Neurological Denies: headache PFSH PFSH Social History Smoking status: Former smoker Exam Narrative Exam Narrative: Gen.: Awake, alert, in no distress Head: Normocephalic, atraumatic ENT: Moist mucous membranes Respiratory: No respiratory distress, lungs clear bilaterally Cardio: Regular rate and rhythm Gastrointestinal: Abdomen is soft, nondistended and nontender to palpation Back: No CVA tenderness Extremities: Moves extremities equally Psych: Normal mood and affect Neuro: No focal neuro deficit Skin: Warm, dry, intact Constitutional Vital Signs, click to edit/add: Last Vital Signs Temp 98.4 F 07/03/23 18:12 Pulse 83 07/03/23 19:10 Resp 18 07/03/23 19:10 BP 136/87 07/03/23 19:10 Pulse Ox 91 L 07/03/23 19:10 O2 Del Method Room Air 07/03/23 18:12 Course Vital Signs Vital signs: Vital Signs Temperature 98.4 F 07/03/23 18:12 Pulse Rate 72 07/03/23 18:12 Respiratory Rate 12 07/03/23 18:12 Blood Pressure 143/96 H 07/03/23 18:12 Pulse Oximetry 96 07/03/23 18:12 Oxygen Delivery Method Room Air 07/03/23 18:12 Temperature 98.4 F 07/03/23 18:12 Pulse Rate 83 07/03/23 19:10 Respiratory Rate 18 07/03/23 19:10 Blood Pressure 136/87 07/03/23 19:10 Pulse Oximetry 91 L 07/03/23 19:10 Oxygen Delivery Method Room Air 07/03/23 18:12 Medical Decision Making MDM Narrative Medical decision making narrative: Patient medicated for pain, given IV fluids and nausea medication. Lab studies, lactic acid and urine specimen are within normal limits and CT of the abdomen and pelvis shows nonobstructing renal stones with no ureteral stones or evidence of obstruction. There is bladder wall thickening, patient is having urinary symptoms we will treat with Cipro as a result, he is otherwise given pain medication, nausea medication and NSAIDs for home. Follow-up with urology and return to the ER if symptoms change or worsen. Medical Records Medical records reviewed: Yes I reviewed the patient's medical records Lab Data Lab results reviewed: Yes I reviewed the patient's lab results Labs: Lab Results 07/03/23 07/03/23 Range/Units 18:20 18:35 WBC 6.3 (4.0-11.0) 10^3/uL RBC 5.04 (4.70-6.10) 10^6/uL Hgb 15.0 (14.0-18.0) g/dL Hct 46.1 (42.0-54.0) % MCV 91.5 (80.0-94.0) fL MCH 29.8 (25.9-34.0) pg MCHC 32.5 (29.9-35.2) g/dL RDW 13.1 (11.0-15.0) % Plt Count 273 (150-450) 10^3/uL MPV 9.4 L (9.5-13.5) fL Neut % (Auto) 50.3 (43.0-75.0) % Lymph % (Auto) 35.9 (20.5-60.0) % [place] % (Auto) 9.4 (1.7-12.0) % Eos % (Auto) 3.2 (0.9-7.0) % Baso % (Auto) 1.0 (0.2-2.0) % Neut # (Auto) 3.2 (1.4-6.5) 10^3/uL Lymph # (Auto) 2.3 (1.2-3.8) 10^3/uL [place] # (Auto) 0.6 (0.3-0.8) 10^3/uL Eos # (Auto) 0.2 (0.0-0.7) 10^3/uL Baso # (Auto) 0.1 (0.0-0.1) 10^3/uL Abs Immat Gran (auto) 0.01 (0.00-0.03) 10^3/uL Imm/Tot Granulo (auto) 0.2 (0.0-0.5) % Sodium 136 (136-145) mmol/L Potassium 3.7 (3.5-5.1) mmol/L Chloride 105 (98-107) mmol/L Carbon Dioxide 25.3 (21.0-32.0) mmol/L Anion Gap 9.4 BUN 13.0 (7.0-18.0) mg/dL Creatinine 1.02 (0.70-1.30) mg/dL Est GFR ( Amer) >60 (>=60) Est GFR (Non-Af Amer) >60 (>=60) BUN/Creatinine Ratio 12.7 Glucose 81 (74-106) mg/dL Lactate 0.8 (0.4-2.0) mmol/L Calcium 8.6 (8.5-10.1) mg/dL Total Bilirubin 0.6 (0.2-1.0) mg/dL AST 23 (15-37) U/L ALT 31 (16-63) U/L Alkaline Phosphatase 60 (46-116) U/L Total Protein 7.1 (6.4-8.2) g/dL Albumin 3.4 (3.4-5.0) g/dL Globulin 3.7 g/dL Albumin/Globulin Ratio 0.9 Urine Color Lt. yellow (YELLOW) Urine Clarity Clear (CLEAR) Urine pH 6.5 (5.0-9.0) Ur Specific [place] 1.015 (1.005-1.025) Urine Protein Negative (NEG/TRACE) mg/dL Urine Glucose (UA) Negative (NEGATIVE) mg/dL Urine Ketones Negative (NEGATIVE) mg/dL Urine Occult Blood Negative (NEGATIVE) Urine Nitrite Negative (NEGATIVE) Urine Bilirubin Negative (NEGATIVE) Urine Urobilinogen 0.2 (0.2-1.0) EU/dL Ur Leukocyte Esterase Negative (NEGATIVE) Imaging Data CT scan - abdomen: Attestation: I have reviewed the pertinent imaging results. Radiologist's impression: ITS Impressions Abdomen/Pelvis CT 07/03/23 18:51 IMPRESSION: Nonobstructive bilateral renal calculi measuring up to 1 cm on the left. Bladder wall thickening, correlate for cystitis. Electronically authenticated by: ASHLEIGH CARABALLO Date: 07/03/2023 20:19 Discharge Plan Discharge Chief Complaint: Urogenital-Male Clinical Impression: Acute flank pain Patient Disposition: Home, Self-Care Time of Disposition Decision: 20:34 Condition: Good Prescriptions / Home Meds: New ketorolac 10 mg tablet 10 mg PO TID PRN (Reason: pain) Qty: 10 0RF oxycodone-acetaminophen [Percocet] 5-325 mg tablet 1 tab PO Q4H PRN (Reason: pain) 3 Days Qty: 15 0RF Rx Instructions: DX: M54.5 ondansetron 4 mg tablet,disintegrating 4 mg PO Q6H PRN (Reason: nausea and vomiting) Qty: 12 0RF ciprofloxacin HCl 500 mg tablet 500 mg PO Q12H Qty: 10 0RF Instructions: Flank Pain (ED) Referrals: Physician,Non-Staff, MD [Primary Care Provider] - 1 week Fito Fortune MD [Physician] - 1 week Discharge Date/Time: 07/03/23 20:54 Stand Alone Forms: Portal Instructions
[2023-07-03] MEDS: KETOROLAC TROMETHAMINE 30 MG/ML VIAL IVP (19:00)
[2023-07-03] MEDS: 0.9 % SODIUM CHLORIDE 1,000 ML 1000 ML IV (19:00)
[2023-07-03] MEDS: HYDROMORPHONE HCL 1 MG/ML CARTRIDGE IVP (19:00)
[2023-07-03] MEDS: ONDANSETRON PF 4 MG/2 ML VIAL IV (19:00)
[2023-07-03 19:10] VITALS: BP 136/87; PULSE 83; RESP 18; O2SAT 91
[2023-07-03 19:10] LABS: Basophils Absolute Auto 0.1 10^3/uL (0.0-0.1); Eosinophils Absolute Auto 0.2 10^3/uL (0.0-0.7); Eosinophils Percent Auto 3.2 % (0.9-7.0); Hematocrit 46.1 % (42.0-54.0); Immature Granulocytes Abs Auto 0.01 10^3/uL (0.00-0.03); Immature Granulocytes Pct Auto 0.2 % (0.0-0.5); Lymphocytes Absolute Auto 2.3 10^3/uL (1.2-3.8); Lymphocytes Percent Auto 35.9 % (20.5-60.0); Mean Corpuscular HGB Conc 32.5 g/dL (29.9-35.2); Mean Corpuscular Hemoglobin 29.8 pg (25.9-34.0); Mean Corpuscular Volume 91.5 fL (80.0-94.0); Mean Platelet Volume 9.4 fL (9.5-13.5); Monocytes Absolute Auto 0.6 10^3/uL (0.3-0.8); Monocytes Percent Auto 9.4 % (1.7-12.0); Neutrophils Absolute Auto 3.2 10^3/uL (1.4-6.5); Neutrophils Percent Auto 50.3 % (43.0-75.0); Platelet Count 273 10^3/uL (150-450); Red Blood Count 5.04 10^6/uL (4.70-6.10); Red Cell Distribution Width 13.1 % (11.0-15.0); White Blood Count 6.3 10^3/uL (4.0-11.0)
[2023-07-03 19:27] LABS: Alanine Aminotransferase 31 U/L (16-63); Albumin Globulin Ratio 0.9; Albumin Level 3.4 g/dL (3.4-5.0); Alkaline Phosphatase 60 U/L (46-116); Anion Gap 9.4; Aspartate Amino Transferase 23 U/L (15-37); BUN Creatinine Ratio 12.7; Bilirubin Total 0.6 mg/dL (0.2-1.0); Calcium 8.6 mg/dL (8.5-10.1); Carbon Dioxide 25.3 mmol/L (21.0-32.0); Chloride 105 mmol/L (98-107); Estimated GFR (African America >60 (>=60); Estimated GFR (Non-African Ame >60 (>=60); Globulin 3.7 g/dL; Glucose 81 mg/dL (74-106); Potassium 3.7 mmol/L (3.5-5.1); Sodium 136 mmol/L (136-145); Total Protein 7.1 g/dL (6.4-8.2)
[2023-07-03 19:30] LABS: Lactate/Lactic Acid 0.8 mmol/L (0.4-2.0)
[2023-07-03] MEDS: FENTANYL CITRATE/PF 100 MCG/2 ML VIAL 50 MCG IV (19:40)
== END 2023-07-03 20:54 | disposition home or self-care (01) ==
PROVIDERS: Physician Assistant; Student in an Organized Health Care Education/Training Program; Emergency Provider Internal Medicine
DX: R10.9 Unspecified abdominal pain (principal); Z87.442 Personal history of urinary calculi; Z87.891 Personal history of nicotine dependence; R11.0 Nausea
CPT/HCPCS: 36415; 74176; 80053; 81003; 83605; 85025; 96374; 96375; 99285; J1170

== ENCOUNTER 2023-07-21 22:50 | Emergency (ER) | payer OTHER, SELFPAY ==
[2023-07-21 22:54] VITALS: BP 141/81; PULSE 69; RESP 18; TEMP 36.5; O2SAT 98; BMI 35.4
--- OUTSIDE RECORDS SUMMARY | 2023-07-21 22:57 | XMS_ITS | CCD ---
Author Organization [facility] Care Team Providers Care Typist Name Role Phone Amaury Maddy F Unavailable Unavailable Amaury Maddy F Unavailable Unavailable JOHNMILLER Jo~[phone] UNKNOWN Unavailable U navailable Miller Bazan Unavailable Unavailable SEPIDEH MILLER~[phone] UNKNOWN Unavailable U navailable MISC, DOCTOR Primary Care Unavailable JHON LIND Admitting Unavailable JHON LIND Attending Unavailable MILLER BUNN Consulting Unavailable HOLLI BIANCHI V Consulting Unavailable SUNI DUENAS Consulting Unavailable MISLyly, DOCTOR Primary Care Unavailable ALEXX KAY Admitting Unavailable ALEXX KAY Attending Unavailable JANY NOBLES Consulting Unavailable ALEXX KAY Consulting Unavailable MONSTER ANGEL Consulting Unavailable Miller Bunn Primary Care Provider UnavailUmang Gunn Attending Provider Unavailable Misbah Donahue Primary Care Provider UnavailPaulie Casarez Unavailable Sam Sheriff Unavailable Luana BUCKNER, Wallace Primary Care Provider [phone] DO Paulie Boo Primary Care Provider DO Paulie Boo Attending Provider [phone] DO Luana Wallace N Primary Care Provider Franca [facility]- Rody Hinkle Emergency Provider [phone] Luana BUCKNER Wallace Primary Care Provider Azul Langford Unavailable Luana Wallace Unavailable Unavailable Tyler Martinez Unavailable Unavailable DO Tyler Martinez Attending Unavailable DO Luana Wallace N Primary Care Provider [phone] MD Sam Mccoy Jr Emergency Provider Luz MariaCARMENNara Bains Emergency Provider Luana DO, Wallace Primary Care Provider Luana, DO Wallace N Primary Care Provider MD Sam Mccoy Jr Emergency Provider Sam Mccoy Jr Admitting Unavailable Sam Mccoy Jr Attending Unavailable Luana, Wallaec N Primary Care Unavailable Sam Mccoy Jr Admitting Unavailable Sam Mccoy Jr Attending Unavailable Luana, Wallace N Primary Care Unavailable Saffle, Ana Maria N Admitting Unavailable Saffle, Ana Maria N Attending Unavailable Luana, Wallace N Primary Care Unavailable LUANA, WALLACE Primary Care Unavailable FARA LÓPEZ Consulting Unavailable YAMILEX ADKINS Attending Unavailable YAMILEX ADKINS Admitting Unavailable LÓPEZ, FARA Sales Admitting Unavailable LÓPEZFARA PORRAS Attending Unavailable LUANA, WALLACE Primary Care Unavailable LÓPEZFARA Admitting Unavailable LÓPEZ, FARA Sales Attending Unavailable LUANA, WALLACE Primary Care Unavailable LÓPEZ, FARA Sales Attending Unavailable LÓPEZ, CHRISTSYBILER A Referring Unavailable LUANA, WALLACE Primary Care [...] sources) HYDROmorphone; Translations: [hydromorphone] Drug Allergy Headache [facility] (1 source) Morphine Drug Allergy 01-31-2023 [facility] Repository Medications Current Medications Medication Drug Class(es) Dates Sig (Normalized) Sig (Original) acetaminophen 325 mg / oxyCODONE hydrochloride 5 mg oral tablet (20 sources) Opioid Agonist Start: 02-01-2023 take 1 tablet by mouth every six hours Oxycodone-Acetami nophen (Percocet) 5-325 mg tablet Active 1 - 2 TAB PO Every 6 hours 15 3 February 01, 2023 Start: 11-02-2022 End: 02-01-2023 take 1 tablet by mouth three times daily Oxycodone-Acetaminophen (Percocet) 5-325 mg tablet Discontinued 1 TAB PO Three times daily 6 2 November 02, 2022 February 01, 2023 4:11am [...] 31, 2018 12:00am May 20, 2019 2:48pm [id number] 200 actuat albuterol 0.09 mg/actuat metered dose [...] Start: 04-18-2021 take 1 capsule by mo [facility] every eight hours Cephalexin 500 MG 1 [...] IntraVENous, ONCE PRN, 1 dose, Starting on Rbidget 11/09/22 at 1425, Until Sun11/10/22 at 1425, [...] hours Oxycodone Discontinued 5 MG PO Q4H 25 May 17, 2018 May 24, 2018 1:02am Start: 03-13-2017 End: 07-31-2018 take 15 mg by mouth once daily Oxycodone Discontinued 15 MG PO Daily March 13, 2017 1:00am July 31, 2018 10:15am take 1 tablet by [facility] every six hours oxyCODONE HCl 5 MG 1 tablet as needed Orally every 6 hrs Active phenazopyridine hydrochlorid e 200 mg delayed release oral tablet (9 sources) Start: 12-29-2021 phenazopyridin e (PYRIDIUM) 200 MG tablet Start: 12-29-2021 End: 10-30-2022 take 200 mg by mouth three times daily at mealtime Phenazopyridine Discontinued 200 MG PO Three times daily 10 December 29, 2021 12:00am October 30, 2022 5:38am administer with a full glass of water after each meal Start: 05-17-2018 End: 05-19-2018 take 1 tablet by mouth every four hours for muscle spasms Phenazopyridine (Pyridium) 100 mg tablet Discontinued 100 MG PO Q8H 7 May 17, 2018 1:00am May 19, 2018 [...] mealtime Prednisone Discontinued 60 MG PO Daily 11 09April 19, 2017 1:00am April 24, 2017 1:03am [...] 2018 10:31am take 2 tablets by mo [facility] three times daily as needed for pain [...] oral tablet (4 sources) alpha-Adrenergic Agonist, Uncompetitive X-ivwdxj-O-asparta te Receptor Antagonist, Sigma-1 Agonist Start: 01-14-2019 End: 05-20-2019 Nhjsgobhsngsmbl-Ex-J uaifenesin (Capmist Dm) 60-15-400 mg Tablet Discontinued [...] Test Name Value Interpretation Reference Range Facility Culture, Urineon 07-17-2023 Culture, Urine ORDER#: [id number] OR DERED BY: WALLACE CRAFT SOURCE: Urine Clean Catch Urine COLLECTED: 07/17/23 17:51 ANTIBIOTICS AT ROSELIA.: RECEIVED : 07/17/23 18:42 Culture, Urine FINAL 07/18/23 22:00 Cult,Urine: NO GROWTH Performed at [facility] [address] [place] [id number] ([phone] Normal [facility] Comment on above: Performed By: #### C JESSEE #### [facility] [address] [place] [address] CBC With Platelet and Differ entialon 03-31-2023 Basophils (Bld) [#/Vol] 0.1 10*3/uL Normal 0.0-0.[address] [facility] Comment on above: Performed By: #### C BCWD #### [facility] [address] [place] [address] Basophils/100 WBC (Bld) 0.6 % Normal [facility] Comment on above: Performed By: #### C BCWD #### [facility] [address] [place] [address] Eosinophils (Bld) [#/Vol] 0.4 10*3/uL Normal 0.0-0.[address] [facility] Comment on above: Performed By: #### C BCWD #### [facility] [address] [place] [address] Eosinophils/100 WBC (Bld) 4.8 % Normal [facility] Comment on above: Performed By: #### C BCWD #### [facility] [address] [place] [address] Erythrocyte distribution width (RBC) [Ratio] 12.8 % Normal 11.5-14.[address] [facility] Comment on above: Performed By: #### C BCWD #### [facility] [address] [place] [address] Hematocrit (Bld) [Volume fraction] 46.2 % Normal 42.0-52.[address] [facility] Comment on above: Performed By: #### C BCWD #### [facility] [address] [place] [address] Hemoglobin (Bld) [Mass/Vol] 14.8 g/dL Normal 14.0-18.[address] [facility] Comment on above: Performed By: #### C BCWD #### [facility] [address] [place] [address] Lymphocytes (Bld) [#/Vol] 3.2 10*3/uL Normal 1.0-4.[address] [facility] Comment on above: Performed By: #### C BCWD #### [facility] [address] [place] [address] Lymphocytes/100 WBC (Bld) 39.7 % Normal [facility] Comment on above: Performed By: #### C BCWD #### [facility] [address] [place] [address] MCH (RBC) [Entitic mass] 29.9 pg Normal 27.0-31.[address] [facility] Comment on above: Performed By: #### C BCWD #### [facility] [address] [place] [address] MCHC 32.0 % Low 33.0-37.[address] [facility] Comment on above: Performed By: #### C BCWD #### [facility] [address] [place] [address] MCV (RBC) [Entitic vol] 93.3 fL Critically high 79.0-92.[address] [facility] Comment on above: Performed By: #### C BCWD #### [facility] [address] [place] [address] Monocytes (Bld) [#/Vol] 0.7 10*3/uL Normal 0.2-0.[address] [facility] Comment on above: Performed By: #### C BCWD #### [facility] [address] [place] [address] Monocytes/100 WBC (Bld) 8.4 % Normal [facility] Comment on above: Performed By: #### C BCWD #### [facility] [address] [place] [address] Neutrophils (Bld) [#/Vol] 3.8 10*3/uL Normal 1.4-6.[address] [facility] Comment on above: Performed By: #### C BCWD #### [facility] [address] [place] [address] Neutrophils/100 WBC (Bld) 46.1 % Normal [facility] Comment on above: Performed By: #### C BCWD #### [facility] [address] [place] [address] Platelets (Bld) [#/Vol] 291 10*3/uL Normal 130-[address] [facility] Comment on above: Performed By: #### C BCWD #### [facility] [address] [place] [address] RBC (Bld) [#/Vol] 4.95 10*6/uL Normal 4.70-6.[address] [facility] Comment on above: Performed By: #### C BCWD #### [facility] [address] [place] [address] WBC (Bld) [#/Vol] 8.1 10*3/uL Normal 4.8-10.[address] [facility] Comment on above: Performed By: #### C BCWD #### [facility] [address] [place] [address] CTA HEAD W WO CONTRASTon CTA HEAD [...] Shamir Browning MD 03/31/23 Final result Normal [facility] CTA NECK W WO CONTRASTon CTA NECK [...] Shamir Browning MD 03/31/23 Final result Normal [facility] Comprehensive Metabolic Pane narayan 03-31-2023 Albumin [Mass/Vol] 4.0 g/dL Normal 3.5-4.[address] [facility] Comment on above: Performed By: #### C MP #### [facility] [address] [place] [address] ALP [Catalytic activity/Vol] 61 U/L Normal 35-[address] [facility] Comment on above: Performed By: #### C MP #### [facility] [address] [place] [address] ALT [Catalytic activity/Vol] 16 U/L Normal 0-41 [facility] Comment on above: Performed By: #### C MP #### [facility] [address] [place] [address] Anion gap [Moles/Vol] 13 mmol/L Normal 9-15 [facility] Comment on above: Performed By: #### C MP #### [facility] [address] [place] [address] AST [Catalytic activity/Vol] 20 U/L Normal 0-40 [facility] Comment on above: Result Comment: Spec imen hemolysis has exceeded the interference as defined by Buster. Value may be falsely increased. Suggest recollection if clinically indicated. Performed By: #### C MP #### [facility] [address] [place] [address] Bilirubin [Mass/Vol] 0.4 mg/dL Normal 0.2-0.7 [facility] Comment on above: Performed By: #### C MP #### [facility] [address] [place] [address] Calcium [Mass/Vol] 8.9 mg/dL Normal 8.5-9.[address] [facility] Comment on above: Performed By: #### C MP #### [facility] [address] [place] [address] Chloride [Moles/Vol] 106 mmol/L Normal 95-107 [facility] Comment on above: Performed By: #### C MP #### [facility] [address] [place] [address] CO2 [Moles/Vol] 22 mmol/L Normal 20-31 [facility] Comment on above: Performed By: #### C MP #### [facility] [address] [place] [address] Creatinine [Mass/Vol] 0.81 mg/dL Normal 0.70-1.20 [facility] Comment on above: Performed By: #### C MP #### [facility] [address] [place] [address] GFR >60.0 Normal >[address] [facility] Comment on above: Result Comment: Aura atric [...] secretion. Performed By: #### C MP #### [facility] [address] [place] [address] Globulin (S) [Mass/Vol] 2.5 g/dL Normal 2.3-3.[address] [facility] Comment on above: Performed By: #### C MP #### [facility] [address] [place] [address] Glucose [Mass/Vol] 110 mg/dL Critically high 70-[address] [facility] Comment on above: Performed By: #### C MP #### [facility] [address] [place] [address] Potassium [Moles/Vol] 4.1 mmol/L Normal 3.4-4.9 [facility] Comment on above: Performed By: #### C MP #### [facility] [address] [place] [address] Protein [Mass/Vol] 6.5 g/dL Normal 6.3-8.[address] [facility] Comment on above: Performed By: #### C MP #### [facility] [address] [place] [address] Sodium [Moles/Vol] 141 mmol/L Normal 135-[address] [facility] Comment on above: Performed By: #### C MP #### [facility] [address] [place] [address] Urea nitrogen [Mass/Vol] 13 mg/dL Normal 6-[address] [facility] Comment on above: Performed By: #### C MP #### [facility] [address] [place] [address] High Sensitivity Troponin To n 03-31-2023 High Sensitivity Troponin T <6 Normal 0-[address] [facility] Comment on above: Result Comment: High Sensitivity Troponin values cannot be compared with other Troponin methodologies. Performed By: #### T RP5 #### [facility] [address] [place] [address] High Sensitivity Troponin T <6 Normal 0-[address] [facility] Comment on above: Result Comment: High Sensitivity Troponin values cannot be compared with other Troponin methodologies. Performed By: #### T RP5 #### [facility] [address] [place] [address] Magnesiumon 03-31-2023 Magnesium [Mass/Vol] 2.0 mg/dL Normal 1.7-2.4 [facility] Comment on above: Performed By: #### M G #### [facility] [address] [place] [address] POCT Venouson 03-31-2023 Creatinine [Mass/Vol] 0.9 mg/dL Normal 0.8-1.3 [facility] Comment on above: Performed By: #### T RP5 #### [facility] [address] [place] [address] GFR >60 Normal >[address] [facility] Comment on above: Result Comment: Pedi atric [...] secretion. Performed By: #### T RP5 #### [facility] [address] [place] [address] POC Performed on SEE BELOW Normal [facility] Comment on above: Result Comment: Perf ormed on POC Performed By: #### T RP5 #### [facility] [address] [place] [address] POC Sample Type PADMINI Normal [facility] Comment on above: Performed By: #### T RP5 #### [facility] [address] [place] [address] XR CHEST PORTABLEon 03-31-20 23 XR CHEST PORTABLE EXAMINATION: ONE XRAY VIEW [...] Darlene Varela MD 03/31/23 Final result Normal [facility] proBNPon 03-31-2023 proBNP <5 Normal [facility] Comment on above: Result Comment: [...] 2006;27:330-337 Performed By: #### B NPPR #### [facility] [address] [facility] [address] Alanine aminotransferase [En zymatic activity/volume] in Serum or PlasmaOrdered By: Sam Mccoy on 02-01-2023 ALT [Catalytic activity/Vol] 18 U/L 7-52 [facility] Albumin [Mass/volume] in Ser um or Plasma by Bromocresol green (BCG) dye binding methoOrdered By: Sam Mccoy on 02-01-2023 Albumin BCG dye [Mass/Vol] 4.2 g/dL 3.5-5.7 [facility] Alkaline phosphatase [Enzyma tic activity/volume] in Serum or PlasmaOrdered By: Sam Mccoy on 02-01-2023 ALP [Catalytic activity/Vol] 47 U/L 34-104 [facility] Aspartate aminotransferase [ Enzymatic activity/volume] in Serum or PlasmaOrdered By: Sam Mccoy on 02-01-2023 AST [Catalytic activity/Vol] 17 U/L 13-39 [facility] Basophils Auto (Bld) [#/Vol] Ordered By: Sam Mccoy on 02-01-2023 Basophils (Bld) [#/Vol] 0.1 10*3/uL 0.0-0.2 [facility] Basophils/100 WBC Auto (Bld) Ordered By: Sam Mccoy on 02-01-2023 Basophils/100 WBC (Bld) 0.8 % . [facility] Bilirubin Test strip Ql (U)O rdered By: Sam Mccoy on 02-01-2023 Bilirubin Ql (U) Negative Negative [facility] Bilirubin.total [Mass/volume ] in Serum or PlasmaOrdered By: Sam Mccoy on 02-01-2023 Bilirubin [Mass/Vol] 0.6 mg/dL 0.3-1.0 [facility] Blood Cultureon 02-01-2023 Bacteria identified Cx Nom (Bld) NO GROWTH 5 DAYS PERFORMED BY: [place] [address] PATHOLOGIST PHOTOGEOLOGIST JERAMY DHALIWAL M.D. [facility] Comment on above: Performed By: #### C BC, CUBLD, LACTIC, CMP ####[address] Bacteria identified Cx Nom (Bld) NO GROWTH 5 DAYS PERFORMED BY: [place] [address] PATHOLOGIST PHOTOGEOLOGIST JERAMY DHALIWAL M.D. [facility] Comment on above: Performed By: #### C BC, CUBLD, LACTIC, CMP ####[address] abdomen pelvis wo conon 1 CT abdomen pelvis wo con [facility] [place] [address] CT Scan Report Signed Patient: Carmelita Eastman MR#: [id number] [birth year] : 1975 Acct:[id number] Age/Sex: 47 / M ADM Date: 01/31/23 Loc: ER Room: Type: [facility] ER Attending Dr: Copies to: Sam Mccoy [...] Dave Arnold M.D.02/01/2023 7:56 AM Dictation Location: [place] [address] Transcribed By: [facility] 02/01/23 0756 Dictated By: Dave Arnold DO 02/01/23 0753 Signed By: 02/01/23 0756 Normal [facility] Calcium [Mass/volume] in Ser um or PlasmaOrdered By: Sam Mccoy on 02-01-2023 Calcium [Mass/Vol] 8.9 mg/dL 8.6-10.3 [facility] Carbon dioxide, total [Moles /volume] in Serum or PlasmaOrdered By: Sam Mccoy on 02-01-2023 CO2 [Moles/Vol] 25.3 mmol/L 21.0-31.0 [facility] Chloride [Moles/volume] in S rosi or PlasmaOrdered By: Sam Mccoy on 02-01-2023 Chloride [Moles/Vol] 104 mmol/L 98-107 [facility] Color Auto (U)Ordered By: Th anibal Mccoy on 02-01-2023 Color (U) Yellow Yellow [facility] Complete Blood Count Auto Di ffon 02-01-2023 Basophils (Bld) [#/Vol] 0.1 10*3/uL Normal 0.0-0.2 [facility] Comment on above: Result Comment: PERF ORMED BY: [facility] [address] [place] [address] PATHOLOGIST PHOTOGEOLOGIST JERAMY DHALIWAL M.D. Performed By: #### C BC, CUBLD, LACTIC, CMP ####[place] [id number] [facility] Basophils/100 WBC (Bld) 0.8 % Normal . [facility] Comment on above: Performed By: #### C BC, CUBLD, LACTIC, CMP ####[address] Eosinophils (Bld) [#/Vol] 0.1 10*3/uL Normal 0.0-0.45 [facility] Comment on above: Performed By: #### C BC, CUBLD, LACTIC, CMP ####[place] [id number] [facility] Eosinophils/100 WBC (Bld) 1.6 % Normal . [facility] Comment on above: Performed By: #### C BC, CUBLD, LACTIC, CMP ####[place] [id number] [facility] Erythrocyte distribution width (RBC) [Ratio] 13.5 % Normal 12.0-14.8 [facility] Comment on above: Performed By: #### C BC, CUBLD, LACTIC, CMP ####[place] [id number] [facility] Hematocrit (Bld) [Volume fraction] 43.1 % Normal 38.8-50.0 [facility] Comment on above: Performed By: #### C BC, CUBLD, LACTIC, CMP ####[place] [id number] [facility] Hemoglobin (Bld) [Mass/Vol] 14.6 g/dL Normal 13.0-17.0 [facility] Comment on above: Performed By: #### C IOANA RAMIREZ LACTIC, CMP ####[address] Lymphocytes (Bld) [#/Vol] 2.2 10*3/uL Normal 1.00-4.8 [facility] Comment on above: Performed By: #### C IOANA RAMIREZ LACTIC, CMP ####[address] Lymphocytes/100 WBC (Bld) 27.0 % Normal . [facility] Comment on above: Performed By: #### C IOANA RAMIREZ LACTIC, CMP ####[address] MCH (RBC) [Entitic mass] 30.4 pg Normal 27.5-35.2 [facility] Comment on above: Performed By: #### IOANA BOLAND LACTIC, CMP ####[address] MCV (RBC) [Entitic vol] 90.0 fL Normal 83.5-101 [facility] Comment on above: Performed By: #### C IOANA RAMIREZ LACTIC, CMP ####[address] Mean Corpuscular HGB Conc 33.8 g/dL Normal 32.5-35.6 [facility] Comment on above: Performed By: #### C IOANA RAMIREZ LACTIC, CMP ####[address] Monocytes (Bld) [#/Vol] 0.7 10*3/uL Normal 0.0-0.8 [facility] Comment on above: Performed By: #### IOANA BOLAND LACTIC, CMP ####[address] Monocytes/100 WBC (Bld) 19.96 % Normal 0.00-20.00 [facility] Comment on above: Result Comment: For adults in ED, MDW > 20.0 may be associated with a higher risk of sepsis during the first 12 hrs of hospital admission Performed By: #### C IOANA RAMIREZ LACTIC, CMP ####[place] [id number] [facility] Monocytes/100 WBC (Bld) 8.4 % Normal . [facility] Comment on above: Performed By: #### C IOANA RAMIREZ LACTIC, CMP ####[address] Neutrophils (Bld) [#/Vol] 5.1 10*3/uL Normal 1.8-7.7 [facility] Comment on above: Performed By: #### C IOANA RAMIREZ LACTIC, CMP ####[address] Neutrophils/100 WBC (Bld) 62.2 % Normal . [facility] Comment on above: Performed By: #### C IOANA RAMIREZ LACTIC, CMP ####[place] [id number] [facility] NRBC% 0.0 /100{WBC} Normal 0-0.5 [facility] Comment on above: Performed By: #### C IOANA RAMIREZ LACTIC, CMP ####[place] [id number] [facility] Platelet mean volume (Bld) [Entitic vol] 7.5 fL Normal 6.6-10.1 [facility] Comment on above: Performed By: #### C IOANA RAMIREZ LACTIC, CMP ####[place] [id number] [facility] Platelets (Bld) [#/Vol] 231 10*3/uL Normal 150-450 [facility] Comment on above: Performed By: #### C IOANA RAMIREZ LACTIC, CMP ####[place] [id number] [facility] RBC (Bld) [#/Vol] 4.79 10*6/uL Normal 3.90-5.60 [facility] Comment on above: Performed By: #### C BC, CUBLD, LACTIC, CMP ####[facility] WBC (Bld) [#/Vol] 8.2 10*3/uL Normal 4.1-10.5 [facility] Comment on above: Performed By: #### C BC, CUBLD, LACTIC, CMP ####[facility] [place] [address] Comprehensive Metabolic Pane narayan 02-01-2023 Albumin [Mass/Vol] 4.2 g/dL Normal 3.5-5.7 [facility] Comment on above: Performed By: #### C BC, CUBLD, LACTIC, CMP #### [address] Albumin/Globulin [Mass ratio] 1.5 {ratio} Normal [facility] Comment on above: Performed By: #### C BC, CUBLD, LACTIC, CMP #### [facility] [address] ALP [Catalytic activity/Vol] 47 U/L Normal 34-104 [facility] Comment on above: Performed By: #### C BC, CUBLD, LACTIC, CMP #### [address] ALT [Catalytic activity/Vol] 18 U/L Normal 7-52 [facility] Comment on above: Performed By: #### C BC, CUBLD, LACTIC, CMP #### [facility] [facility] [address] Anion gap [Moles/Vol] 11.5 mmol/L Normal 6.0-15.0 [facility] Comment on above: Performed By: #### C BC, CUBLD, LACTIC, CMP #### [facility] [address] AST [Catalytic activity/Vol] 17 U/L Normal 13-39 [facility] Comment on above: Performed By: #### C BC, CUBLD, LACTIC, CMP #### [facility] [address] Bilirubin [Mass/Vol] 0.6 mg/dL Normal 0.3-1.0 [facility] Comment on above: Performed By: #### C BCIOANA LACTIC, CMP #### [facility] [address] Calcium [Mass/Vol] 8.9 mg/dL Normal 8.6-10.3 [facility] Comment on above: Performed By: #### C BCGUSTAVOLD, LACTIC, CMP #### [facility] [address] Chloride [Moles/Vol] 104 mmol/L Normal 98-107 [facility] Comment on above: Performed By: #### C BCIOANA LACTIC, CMP #### [address] CO2 [Moles/Vol] 25.3 mmol/L Normal 21.0-31.0 [facility] Comment on above: Performed By: #### C BC CUBLD, LACTIC, CMP #### [address] Creatinine [Mass/Vol] 1.05 mg/dL Normal 0.70-1.30 [facility] Comment on above: Performed By: #### C BC CUBLD, LACTIC, CMP #### [address] Creatinine Clr Calc Pharmacy 102.41 [facility] Comment on above: Result Comment: PERF ORMED BY: [place] [address] PATHOLOGIST PHOTOGEOLOGIST JERAMY DHALIWAL M.D. Performed By: #### C BCGUSTAVOLD, LACTIC, CMP #### [place] [address] [place] GFR/1.73 sq M.predicted MDRD (S/P/Bld) [Vol rate/Area] mL/min/{1.73_m2} [facility] Comment on above: Performed By: #### C BC, CUBLD, LACTIC, CMP #### [address] [place] [address] [place] Globulin (S) [Mass/Vol] 2.8 g/dL Normal [facility] Comment on above: Performed By: #### C IOANA RAMIREZ LACTIC, CMP #### [facility] [address] Glucose [Mass/Vol] 96 mg/dL Normal 70-100 [facility] Comment on above: Result Comment: [place] Glucose Reference Range is dependent on time and content of last meal. Glucose of more than 200 mg/dL in a nonstressed, ambulatory subject supports the diagnosis of Diabetes Mellitus. ADA recommended reference range Performed By: #### C IOANA RAMIREZ LACTIC, CMP #### [facility] [address] Potassium [Moles/Vol] 3.8 mmol/L Normal 3.5-5.1 [facility] Comment on above: Performed By: #### C IOANA RAMIREZ LACTIC, CMP #### [facility] [address] Protein [Mass/Vol] 7.0 g/dL Normal 6.4-8.9 [facility] Comment on above: Performed By: #### C IOANA RAMIREZ LACTIC, CMP #### [facility] [address] Sodium [Moles/Vol] 137 mmol/L Normal 136-145 [facility] Comment on above: Performed By: #### C IOANA RAMIREZ LACTIC, CMP #### [facility] [address] [place] [address] [place] Urea nitrogen [Mass/Vol] 16 mg/dL Normal 7-25 [facility] Comment on above: Performed By: #### C IOANA RAMIREZ LACTIC, CMP #### [facility] [address] [place] [address] [place] Creatinine [Mass/volume] in Serum or PlasmaOrdered By: Sam Mccoy on 02-01-2023 Creatinine [Mass/Vol] 1.05 mg/dL 0.70-1.30 [facility] Eosinophils Auto (Bld) [#/Vo l]Ordered By: Sam Mccoy on 02-01-2023 Eosinophils (Bld) [#/Vol] 0.1 10*3/uL 0.0-0.45 [facility] Eosinophils/100 WBC Auto (Bl d)Ordered By: Sam Mccoy on 02-01-2023 Eosinophils/100 WBC (Bld) 1.6 % . [facility] Erythrocyte distribution wid th Auto (RBC) [Ratio]Ordered By: Sam Mccoy on 02-01-2023 Erythrocyte distribution width (RBC) [Ratio] 13.5 % 12.0-14.8 [facility] Globulin Calc (S) [Mass/Vol] Ordered By: Sam Mccoy on 02-01-2023 Globulin (S) [Mass/Vol] 2.8 g/dL [facility] Glucose [Mass/volume] in Ser um or PlasmaOrdered By: Sam Mccoy on 02-01-2023 Glucose [Mass/Vol] 96 mg/dL 70-100 [facility] Comment on above: ADA recommended refe rence rangeRandom Glucose Reference Range is dependent on time and content of last meal. Glucose of more than 200 mg/dL in a nonstressed, ambulatory subject supports the diagnosis of Diabetes Mellitus. Hematocrit Auto (Bld) [Volum e fraction]Ordered By: Sam Mccoy on 02-01-2023 Hematocrit (Bld) [Volume fraction] 43.1 % 38.8-50.0 [facility] Hemoglobin [Mass/volume] in BloodOrdered By: Sam Mccoy on 02-01-2023 Hemoglobin (Bld) [Mass/Vol] 14.6 g/dL 13.0-17.0 [facility] Ketones Auto test strip (U) [Mass/Vol]Ordered By: Sam Mccoy on 02-01-2023 Ketones (U) [Mass/Vol] Negative Negative [facility] Lactate [Moles/volume] in Se rum or PlasmaOrdered By: Sam Mccoy on 02-01-2023 Lactate [Moles/Vol] 0.7 mmol/L 0.5-2.2 [facility] Lactic Acidon 02-01-2023 Lactate [Moles/Vol] 0.7 mmol/L Normal 0.5-2.2 [facility] Comment on above: Result Comment: PERF ORMED BY: [facility] [address] [place] [address] PATHOLOGIST PHOTOGEOLOGIST JERAMY DHALIWAL M.D. Performed By: #### C BC, CUBLD, LACTIC, CMP ####[facility] [id number] [place] [id number] [facility] Leukocytes [#/volume] correc carl for nucleated erythrocytes in Blood by Automated counOrdered By: Sam Mccoy on 02-01-2023 WBC corrected for nucl RBC Auto (Bld) [#/Vol] 8.2 10*3/uL 4.1-10.5 [facility] Lymphocytes Auto (Bld) [#/Vo l]Ordered By: Sam Mccoy on 02-01-2023 Lymphocytes (Bld) [#/Vol] 2.2 10*3/uL 1.00-4.8 [facility] Lymphocytes/100 WBC Auto (Bl d)Ordered By: Sam Mccoy on 02-01-2023 Lymphocytes/100 WBC (Bld) 27.0 % . [facility] MCH Auto (RBC) [Entitic mass ]Ordered By: Sam Mccoy on 02-01-2023 MCH (RBC) [Entitic mass] 30.4 pg 27.5-35.2 [facility] MCHC Auto (RBC) [Mass/Vol]Or dered By: Sam Mccoy on 02-01-2023 MCHC (RBC) [Mass/Vol] 33.8 g/dL 32.5-35.6 [facility] MCV Auto (RBC) [Entitic vol] Ordered By: Sam Mccoy on 02-01-2023 MCV (RBC) [Entitic vol] 90.0 fL 83.5-101 [facility] Monocyte distribution width [Entitic volume] in Blood by AutomatedOrdered By: Sam Mccoy on 02-01-2023 Monocyte distribution width Auto (Bld) [Entitic vol] 19.96 % 0.00-20.00 [facility] Comment on above: For adults in ED, MD W > 20.0 may be associated with a higher risk of sepsis during the first 12 hrs of hospital admission Monocytes Auto (Bld) [#/Vol] Ordered By: Sam Mccoy on 02-01-2023 Monocytes (Bld) [#/Vol] 0.7 10*3/uL 0.0-0.8 [facility] Monocytes/100 WBC Auto (Bld) Ordered By: Sam Mccoy on 02-01-2023 Monocytes/100 WBC (Bld) 8.4 % . [facility] Neutrophils Auto (Bld) [#/Vo l]Ordered By: Sam Mccoy on 02-01-2023 Neutrophils (Bld) [#/Vol] 5.1 10*3/uL 1.8-7.7 [facility] Neutrophils/100 WBC Auto (Bl d)Ordered By: Sam Mccoy on 02-01-2023 Neutrophils/100 WBC (Bld) 62.2 % . [facility] Nitrite Test strip Ql (U)Ord ered By: Sam Mccoy on 02-01-2023 Nitrite Ql (U) Negative Negative [facility] No Panel InformationOrdered By: Sam Mccoy on 02-01-2023 Estimated GFR (CKD-EPI) > 60.0 mL/Min [facility] Creatinine Clearance (Chem 102.41 [facility] Nucleated erythrocytes [Pres ence] in Blood by Automated countOrdered By: Sam Mccoy on 02-01-2023 Nucleated RBC Auto Ql (Bld) 0.0 /100{WBC} 0-0.5 [facility] Platelet mean volume Auto (B ld) [Entitic vol]Ordered By: Sam Mccoy on 02-01-2023 Platelet mean volume (Bld) [Entitic vol] 7.5 fL 6.6-10.1 [facility] Platelets Auto (Bld) [#/Vol] Ordered By: Sam Mccoy on 02-01-2023 Platelets (Bld) [#/Vol] 231 10*3/uL 150-450 [facility] Potassium [Moles/volume] in Serum or PlasmaOrdered By: Sam Mccoy on 02-01-2023 Potassium [Moles/Vol] 3.8 mmol/L 3.5-5.1 [facility] Protein Auto test strip (U) [Mass/Vol]Ordered By: Sam Mccoy on 02-01-2023 Protein (U) [Mass/Vol] Negative Negative [facility] Protein [Mass/volume] in Ser um or PlasmaOrdered By: Sam Mccoy on 02-01-2023 Protein [Mass/Vol] 7.0 g/dL 6.4-8.9 [facility] RBC Auto (Bld) [#/Vol]Ordere d By: Sam Mccoy on 02-01-2023 RBC (Bld) [#/Vol] 4.79 10*6/uL 3.90-5.60 [facility] Serum or plasma albumin/glob ulin mass ratioOrdered By: Sam Mccoy on 02-01-2023 Albumin/Globulin [Mass ratio] 1.5 {ratio} [facility] Serum or plasma anion gap de terminationOrdered By: Sam Mccoy on 02-01-2023 Anion gap [Moles/Vol] 11.5 mmol/L 6.0-15.0 [facility] Sodium [Moles/volume] in Ser um or PlasmaOrdered By: Sam Mccoy on 02-01-2023 Sodium [Moles/Vol] 137 mmol/L 136-145 [facility] Specific gravity Auto test s trip (U) [Rel density]Ordered By: Sam Mccoy on 02-01-2023 Specific gravity (U) [Rel density] 1.007 1.001-1.03 0 [facility] Urea nitrogen [Mass/volume] in Serum or PlasmaOrdered By: Sam Mccoy on 02-01-2023 Urea nitrogen [Mass/Vol] 16 mg/dL 7-25 [facility] Urinalysison 02-01-2023 Appearance (U) Clear Normal Clear [facility] Comment on above: Order Comment: Name Collection Type:: Clean-Voided Midstream Performed By: #### U A ####[facility] Bilirubin,Urine Negative Normal Negative [facility] Comment on above: Order Comment: Name Collection Type:: Clean-Voided Midstream Performed By: #### U A ####[facility] [place] [phone] [facility] Color (U) Yellow Normal Yellow [facility] Comment on above: Order Comment: Name Collection Type:: Clean-Voided Midstream Performed By: #### U A ####[address] [address] [facility] Glucose Ql (U) Normal Normal Normal [facility] Comment on above: Order Comment: Name Collection Type:: Clean-Voided Midstream Performed By: #### U A ####[address] [address] [facility] Ketones Ql (U) Negative Normal Negative [facility] Comment on above: Order Comment: Name Collection Type:: Clean-Voided Midstream Performed By: #### U A ####[address] [address] [facility] Leukocyte esterase Test strip Ql (U) Negative Normal Negative [facility] Comment on above: Order Comment: Name Collection Type:: Clean-Voided Midstream Performed By: #### U A ####[address] [address] [facility] Nitrite,Urine Negative Normal Negative [facility] Comment on above: Order Comment: Name Collection Type:: Clean-Voided Midstream Performed By: #### U A ####[address] [address] [facility] Occult Blood,Urine Negative Normal Negative [facility] Comment on above: Order Comment: Name Collection Type:: Clean-Voided Midstream Result Comment: PERF ORMED BY: [facility] [address] [facility] [place] [phone] PATHOLOGIST PHOTOGEOLOGIST JERAMY DHALIWAL M.D. Performed By: #### U A ####[address] [address] [facility] pH (U) 6.0 [pH] Normal 5.0-9.0 [facility] Comment on above: Order Comment: Name Collection Type:: Clean-Voided Midstream Performed By: #### U A ####[address] [address] [facility] Protein,Urine Negative Normal Negative [facility] Comment on above: Order Comment: Name Collection Type:: Clean-Voided Midstream Performed By: #### U A ####[address] [address] [facility] Specificy [place],Urine 1.007 Normal 1.001-1.03 0 [facility] Comment on above: Order Comment: Name Collection Type:: Clean-Voided Midstream Performed By: #### U A ####[facility] [address] [place] [id number] [facility] Urobilinogen,Urine Normal Normal Normal [facility] Comment on above: Order Comment: Name Collection Type:: Clean-Voided Midstream Performed By: #### U A ####[facility] [address] [place] [phone] [facility] Urine clarity by refractomet ry automatedOrdered By: Sam Mccoy on 02-01-2023 Clarity Refractometry automated (U) Clear Clear [facility] Urine glucose measurement by automated test strip (mass/volume)Ordered By: Sam Mccoy on 02-01-2023 Glucose Auto test strip (U) [Mass/Vol] Normal mg/dL Normal [facility] Urine hemoglobin detection b y automated test stripOrdered By: Sam Mccoy on 02-01-2023 Hemoglobin Auto test strip Ql (U) Negative Negative [facility] Urine leukocyte esterase det ection by automated test stripOrdered By: Sam Mccoy on 02-01-2023 Leukocyte esterase Auto test strip Ql (U) Negative Negative [facility] Urobilinogen Auto test strip (U) [Mass/Vol]Ordered By: Sam Mccoy on 02-01-2023 Urobilinogen (U) [Mass/Vol] Normal mg/dL Normal [facility] WBC Auto (Bld) [#/Vol]Ordere d By: Sam Mccoy on 02-01-2023 WBC (Bld) [#/Vol] 8.2 10*3/uL 4.1-10.5 [facility] pH Auto test strip (U)Ordere d By: Sam Mccoy on 02-01-2023 pH (U) 6.0 [pH] 5.0-9.0 [facility] OPERATIVE REPORTon 3 OPERATIVE REPORT [place] [id number] OPERATIVE REPORT PATIENT NAME: CARMELITA EASTMAN : 1975 MED REC NO: [id number] ROOM: ACCOUNT NO: [id number] ADMIT DATE: 11/09/2022 PROVIDER: Fara López MD [...] my office as scheduled. FARA LÓPEZ MD ALIVIA/[email or web address] Doc#: [id number] CC: Fara López MD [facility] Alanine aminotransferase [En zymatic activity/volume] in Serum or PlasmaOrdered By: Ana Maria Loera on 11-02-2022 ALT [Catalytic activity/Vol] 9 U/L 7-52 [facility] Albumin [Mass/volume] in Ser um or Plasma by Bromocresol green (BCG) dye binding methoOrdered By: Ana Maria Loera on 11-02-2022 Albumin BCG dye [Mass/Vol] 3.8 g/dL 3.5-5.7 [facility] Alkaline phosphatase [Enzyma tic activity/volume] in Serum or PlasmaOrdered By: Ana Maria Loera on 11-02-2022 ALP [Catalytic activity/Vol] 47 U/L 34-104 [facility] Aspartate aminotransferase [ Enzymatic activity/volume] in Serum or PlasmaOrdered By: Ana Maria Loera on 11-02-2022 AST [Catalytic activity/Vol] 11 U/L 13-39 [facility] Automated erythrocytes count in urine sediment (number/area)Ordered By: Ana Maria Loera on 11-02-2022 RBC Auto (Urine sed) [#/Area] Innumerable [HPF] 0-4 [facility] Automated leukocytes count i n urine sediment (number/area)Ordered By: Ana Maria Loera on 11-02-2022 WBC Auto (Urine sed) [#/Area] 10-19 [HPF] 0-4 [facility] Basophils Auto (Bld) [#/Vol] Ordered By: Ana Maria Loera on 11-02-2022 Basophils (Bld) [#/Vol] 0.0 10*3/uL 0.0-0.2 [facility] Basophils/100 WBC Auto (Bld) Ordered By: Ana Maria Loera on 11-02-2022 Basophils/100 WBC (Bld) 0.7 % . [facility] Bilirubin Test strip Ql (U)O rdered By: Ana Maria Loera on 11-02-2022 Bilirubin Ql (U) 1+ Negative [facility] Bilirubin.total [Mass/volume ] in Serum or PlasmaOrdered By: Ana Maria Loera on 11-02-2022 Bilirubin [Mass/Vol] 0.4 mg/dL 0.3-1.[address] [facility] [address] abdomen pelvis wo conon 0 11-02-2022 CT abdomen pelvis wo con [facility] [place] [address] CT Scan Report Signed Patient: Carmelita Eastman MR#: [id number] 07 : 1975 Acct:[id number] Age/Sex: 47 / M ADM Date: 11/02/22 Loc: ER Room: Type: PRE ER Attending Dr: Copies to: Ana Maria Loera APRN Ordering Provider: Ana Maria Loera APRN [...] Puentes Jr., D.O.11/02/2022 3:05 PM Dictation Location: [facility]-15 Transcribed By: [facility] 11/02/22 1505 Dictated By: Mk Puentes Jr, DO 11/02/22 1459 Signed By: 11/02/22 1505 Normal [facility] Calcium [Mass/volume] in Ser um or PlasmaOrdered By: Ana Maria Loera on 11-02-2022 Calcium [Mass/Vol] 8.9 mg/dL 8.6-10.3 [facility] Carbon dioxide, total [Moles /volume] in Serum or PlasmaOrdered By: Ana Maria Loera on 11-02-2022 CO2 [Moles/Vol] 28.3 mmol/L 21.0-31.0 [facility] Chloride [Moles/volume] in S rosi or PlasmaOrdered By: Ana Maria Loera on 11-02-2022 Chloride [Moles/Vol] 108 mmol/L 98-107 [facility] Color Auto (U)Ordered By: Ag Loera on 11-02-2022 Color (U) Noel Yellow [facility] Complete Blood Count Auto Di ffon 11-02-2022 Basophils (Bld) [#/Vol] 0.0 10*3/uL Normal 0.0-0.2 [facility] Comment on above: Result Comment: PERF ORMED BY: [place] [address] PATHOLOGIST PHOTOGEOLOGIST JERAMY DHALIWAL M.D. Performed By: #### C BC, LIPASE, CMP #### [address] Basophils/100 WBC (Bld) 0.7 % Normal . [facility] Comment on above: Performed By: #### C BC, LIPASE, CMP #### [address] Eosinophils (Bld) [#/Vol] 0.2 10*3/uL Normal 0.0-0.45 [facility] Comment on above: Performed By: #### C BC, LIPASE, CMP #### [address] Eosinophils/100 WBC (Bld) 3.2 % Normal . [facility] Comment on above: Performed By: #### C BC, LIPASE, CMP #### [address] Erythrocyte distribution width (RBC) [Ratio] 13.2 % Normal 12.0-14.8 [facility] Comment on above: Performed By: #### C BC, LIPASE, CMP #### [address] Hematocrit (Bld) [Volume fraction] 46.5 % Normal 38.8-50.0 [facility] Comment on above: Performed By: #### C BC, LIPASE, CMP #### [address] Hemoglobin (Bld) [Mass/Vol] 15.1 g/dL Normal 13.0-17.0 [facility] Comment on above: Performed By: #### C BC, LIPASE, CMP #### [address] Lymphocytes (Bld) [#/Vol] 1.9 10*3/uL Normal 1.00-4.8 [facility] Comment on above: Performed By: #### C BC, LIPASE, CMP #### [place] [address] [place] Lymphocytes/100 WBC (Bld) 25.3 % Normal . [facility] Comment on above: Performed By: #### C BC, LIPASE, CMP #### [address] MCH (RBC) [Entitic mass] 29.4 pg Normal 27.5-35.2 [facility] Comment on above: Performed By: #### C BC, LIPASE, CMP #### [facility] [address] MCV (RBC) [Entitic vol] 90.4 fL Normal 83.5-101 [facility] Comment on above: Performed By: #### C BC, LIPASE, CMP #### [address] Mean Corpuscular HGB Conc 32.5 g/dL Normal 32.5-35.6 [facility] Comment on above: Performed By: #### C BC, LIPASE, CMP #### [address] Monocytes (Bld) [#/Vol] 0.6 10*3/uL Normal 0.0-0.8 [facility] Comment on above: Performed By: #### C BC, LIPASE, CMP #### [address] Monocytes/100 WBC (Bld) 19.60 % Normal 0.00-20.00 [facility] Comment on above: Performed By: #### C BC, LIPASE, CMP #### [place] [address] [place] Monocytes/100 WBC (Bld) 7.6 % Normal . [facility] Comment on above: Performed By: #### C BC, LIPASE, CMP #### [address] Neutrophils (Bld) [#/Vol] 4.6 10*3/uL Normal 1.8-7.7 [facility] Comment on above: Performed By: #### C BC, LIPASE, CMP #### [place] [address] [place] Neutrophils/100 WBC (Bld) 63.2 % Normal . [facility] Comment on above: Performed By: #### C BC, LIPASE, CMP #### [address] NRBC% 0.1 /100{WBC} Normal 0-0.5 [facility] Comment on above: Performed By: #### C BC, LIPASE, CMP #### [address] Platelet mean volume (Bld) [Entitic vol] 7.8 fL Normal 6.6-10.1 [facility] Comment on above: Performed By: #### C BC, LIPASE, CMP #### [address] Platelets (Bld) [#/Vol] 260 10*3/uL Normal 150-450 [facility] Comment on above: Performed By: #### C BC, LIPASE, CMP #### [address] RBC (Bld) [#/Vol] 5.15 10*6/uL Normal 3.90-5.60 [facility] Comment on above: Performed By: #### C BC, LIPASE, CMP #### [address] WBC (Bld) [#/Vol] 7.3 10*3/uL Normal 4.1-10.5 [facility] Comment on above: Performed By: #### C BC, LIPASE, CMP #### [address] Comprehensive Metabolic Pane narayan 11-02-2022 Albumin [Mass/Vol] 3.8 g/dL Normal 3.5-5.7 [facility] Comment on above: Performed By: #### C BC, LIPASE, CMP #### [address] Albumin/Globulin [Mass ratio] 1.6 {ratio} Normal [facility] Comment on above: Performed By: #### C BC, LIPASE, CMP #### [address] ALP [Catalytic activity/Vol] 47 U/L Normal 34-104 [facility] Comment on above: Performed By: #### C BC, LIPASE, CMP #### [address] ALT [Catalytic activity/Vol] 9 U/L Normal 7-52 [facility] Comment on above: Performed By: #### C BC, LIPASE, CMP #### [facility] [address] Anion gap [Moles/Vol] 9.1 mmol/L Normal 6.0-15.0 [facility] Comment on above: Performed By: #### C BC, LIPASE, CMP #### [facility] [address] AST [Catalytic activity/Vol] 11 U/L Low 13-39 [facility] Comment on above: Performed By: #### C BC, LIPASE, CMP #### [facility] [address] Bilirubin [Mass/Vol] 0.4 mg/dL Normal 0.3-1.0 [facility] Comment on above: Performed By: #### C BC, LIPASE, CMP #### [facility] [address] Calcium [Mass/Vol] 8.9 mg/dL Normal 8.6-10.3 [facility] Comment on above: Performed By: #### C BC, LIPASE, CMP #### [facility] [address] Chloride [Moles/Vol] 108 mmol/L High 98-107 [facility] Comment on above: Performed By: #### C BC, LIPASE, CMP #### [facility] [address] CO2 [Moles/Vol] 28.3 mmol/L Normal 21.0-31.0 [facility] Comment on above: Performed By: #### C BC, LIPASE, CMP #### [facility] [address] Creatinine [Mass/Vol] 1.01 mg/dL Normal 0.70-1.30 [facility] Comment on above: Performed By: #### C BC, LIPASE, CMP #### [facility] [address] [place] [address] [place] Creatinine Clr Calc Pharmacy 109.84 Normal [facility] Comment on above: Performed By: #### C BC, LIPASE, CMP #### [facility] [address] [place] [address] [place] GFR/1.73 sq M.predicted MDRD (S/P/Bld) [Vol rate/Area] mL/min/{1.73_m2} [facility] Comment on above: Performed By: #### C BC, LIPASE, CMP #### [facility] [address] Globulin (S) [Mass/Vol] 2.4 g/dL [facility] Comment on above: Performed By: #### C BC, LIPASE, CMP #### [facility] [address] Glucose [Mass/Vol] 97 mg/dL Normal 70-100 [facility] Comment on above: Result Comment: [facility] Glucose Reference Range is dependent on time and content of last meal. Glucose of more than 200 mg/dL in a nonstressed, ambulatory subject supports the diagnosis of Diabetes Mellitus. ADA recommended reference range Performed By: #### C BC, LIPASE, CMP #### [facility] [address] Potassium [Moles/Vol] 4.4 mmol/L Normal 3.5-5.1 [facility] Comment on above: Performed By: #### C BC, LIPASE, CMP #### [facility] [address] [address] Protein [Mass/Vol] 6.2 g/dL Low 6.4-8.9 [facility] Comment on above: Performed By: #### C BC, LIPASE, CMP #### [facility] [address] [place] [address] [place] Sodium [Moles/Vol] 141 mmol/L Normal 136-145 [facility] Comment on above: Performed By: #### C BC, LIPASE, CMP #### [facility] [address] Urea nitrogen [Mass/Vol] 12 mg/dL Normal 7-25 [facility] Comment on above: Performed By: #### C BC, LIPASE, CMP #### [facility] [address] Creatinine [Mass/volume] in Serum or PlasmaOrdered By: Ana Maria Loera on 11-02-2022 Creatinine [Mass/Vol] 1.01 mg/dL 0.70-1.30 [facility] Dipstick and Microscopicon 0 11-02-2022 Appearance (U) Turbid Critically abnormal Clear [facility] Comment on above: Order Comment: Name Collection Type:: Clean-Voided Midstream Performed By: #### C UU, ADDONUAPLUS ####[facility] [id number] Bacteria,Urine None Seen Normal None Seen [facility] Comment on above: Order Comment: Name Collection Type:: Clean-Voided Midstream Performed By: #### C UU, ADDONUAPLUS ####[place] [id number] [address] Bilirubin,Urine 1+ High Negative [facility] Comment on above: Order Comment: Name Collection Type:: Clean-Voided Midstream Performed By: #### C UU, ADDONUAPLUS ####[place] [id number] [address] Color (U) Noel Critically abnormal Yellow [facility] Comment on above: Order Comment: Name Collection Type:: Clean-Voided Midstream Performed By: #### C UU, ADDONUAPLUS ####[address] Glucose Ql (U) Normal Normal Normal [facility] Comment on above: Order Comment: Name Collection Type:: Clean-Voided Midstream Performed By: #### C UU, ADDONUAPLUS ####[address] Hyaline Casts,Urine 0-8 Normal 0-8 [facility] Comment on above: Order Comment: Name Collection Type:: Clean-Voided Midstream Result Comment: PERF ORMED BY: [facility] [address] [place] [address] PATHOLOGIST PHOTOGEOLOGIST JERAMY DHALIWAL M.D. Performed By: #### C UU, ADDONUAPLUS ####[address] [address] [facility] Ketones Ql (U) Trace High Negative [facility] Comment on above: Order Comment: Name Collection Type:: Clean-Voided Midstream Performed By: #### C UU, ADDONUAPLUS ####[address] [address] [facility] Leukocyte esterase Test strip Ql (U) 2+ High Negative [facility] Comment on above: Order Comment: Name Collection Type:: Clean-Voided Midstream Performed By: #### C UU, ADDONUAPLUS ####[address] [address] [facility] Nitrite,Urine Negative Normal Negative [facility] Comment on above: Order Comment: Name Collection Type:: Clean-Voided Midstream Performed By: #### C UU, ADDONUAPLUS ####[address] [address] [facility] Occult Blood,Urine 3+ High Negative [facility] Comment on above: Order Comment: Name Collection Type:: Clean-Voided Midstream Result Comment: PERF ORMED BY: [facility] [address] [place] [address] PATHOLOGIST PHOTOGEOLOGIST JERAMY DHALIWAL M.D. Performed By: #### C UU, ADDONUAPLUS ####[address] [address] [facility] pH (U) 6.5 [pH] Normal 5.0-9.0 [facility] Comment on above: Order Comment: Name Collection Type:: Clean-Voided Midstream Performed By: #### C UU, ADDONUAPLUS ####[address] [address] [facility] Protein (U) [Mass/Vol] 300 mg/dL High Negative [facility] Comment on above: Order Comment: Name Collection Type:: Clean-Voided Midstream Performed By: #### C UU, ADDONUAPLUS ####[address] [address] [facility] RBC,Urine Innumerable High 0-4 [facility] Comment on above: Order Comment: Name Collection Type:: Clean-Voided Midstream Performed By: #### C UU, ADDONUAPLUS ####[address] [address] [facility] Renal Epithelial Cells,Urine None Seen Normal 0-1 [facility] Comment on above: Order Comment: Name Collection Type:: Clean-Voided Midstream Performed By: #### C UU, ADDONUAPLUS ####[address] Specificy [place],Urine 1.025 Normal 1.001-1.03 0 [facility] Comment on above: Order Comment: Name Collection Type:: Clean-Voided Midstream Performed By: #### C UU, ADDONUAPLUS ####[place] [id number] [facility] Squamous Epithelial Cell,Urine 3-4 High 0-2 [facility] Comment on above: Order Comment: Name Collection Type:: Clean-Voided Midstream Performed By: #### C UU, ADDONUAPLUS ####[place] [id number] [facility] Urobilinogen,Urine Normal Normal Normal [facility] Comment on above: Order Comment: Name Collection Type:: Clean-Voided Midstream Performed By: #### C UU, ADDONUAPLUS ####[place] [id number] [facility] WBC,Urine 10-19 High 0-4 [facility] Comment on above: Order Comment: Name Collection Type:: Clean-Voided Midstream Performed By: #### C UU, ADDONUAPLUS ####[place] [id number] [facility] Eosinophils Auto (Bld) [#/Vo l]Ordered By: Ana Maria Loera on 07-06-2023 Eosinophils (Bld) [#/Vol] 0.2 10*3/uL 0.0-0.45 [facility] Eosinophils/100 WBC Auto (Bl d)Ordered By: Ana Maria Loera on 11-02-2022 Eosinophils/100 WBC (Bld) 3.2 % . [facility] Erythrocyte distribution wid th Auto (RBC) [Ratio]Ordered By: Ana Maria Loera on 11-02-2022 Erythrocyte distribution width (RBC) [Ratio] 13.2 % 12.0-14.8 [facility] Globulin Calc (S) [Mass/Vol] Ordered By: Ana Maria Loera on 11-02-2022 Globulin (S) [Mass/Vol] 2.4 g/dL [facility] Glucose [Mass/volume] in Ser um or PlasmaOrdered By: Ana Maria Loera on 11-02-2022 Glucose [Mass/Vol] 97 mg/dL 70-100 [facility] Comment on above: ADA recommended refe rence rangeRandom Glucose Reference Range is dependent on time and content of last meal. Glucose of more than 200 mg/dL in a nonstressed, ambulatory subject supports the diagnosis of Diabetes Mellitus. Hematocrit Auto (Bld) [Volum e fraction]Ordered By: Ana Maria Loera on 11-02-2022 Hematocrit (Bld) [Volume fraction] 46.5 % 38.8-50.0 [facility] Hemoglobin [Mass/volume] in BloodOrdered By: Ana Maria Loera on 11-02-2022 Hemoglobin (Bld) [Mass/Vol] 15.1 g/dL 13.0-17.0 [facility] Ketones Auto test strip (U) [Mass/Vol]Ordered By: Ana Maria Loera on 11-02-2022 Ketones (U) [Mass/Vol] Trace Negative [facility] Laboratory - UrinalysisOrder ed By: Ana Maria Loera on 11-02-2022 Hyaline casts LM Ql (Urine sed) 0-8 [LPF] 0-8 [facility] Lactate [Moles/volume] in Se rum or PlasmaOrdered By: Ana Maria Loera on 11-02-2022 Lactate [Moles/Vol] 1.1 mmol/L 0.5-2.2 [facility] Lactic Acidon 11-02-2022 Lactate [Moles/Vol] 1.1 mmol/L Normal 0.5-2.2 [facility] Comment on above: Result Comment: PERF ORMED BY: [place] [address] PATHOLOGIST PHOTOGEOLOGIST JERAMY DHALIWAL M.D. Performed By: #### L ACTIC #### [facility] [address] [place] [address] Leukocytes [#/volume] correc carl for nucleated erythrocytes in Blood by Automated counOrdered By: Ana Maria Loera on 11-02-2022 WBC corrected for nucl RBC Auto (Bld) [#/Vol] 7.3 10*3/uL 4.1-10.5 [facility] Lipaseon 11-02-2022 Lipase [Catalytic activity/Vol] 15.0 U/L Normal 11.0-82.0 [facility] Comment on above: Result Comment: PERF ORMED BY: [place] [address] PATHOLOGIST PHOTOGEOLOGIST JERAMY DHALIWAL M.D. Performed By: #### C BC, LIPASE, CMP #### [facility] [address] [place] [address] Lipase [Enzymatic activity/v olume] in Serum or PlasmaOrdered By: Ana Maria Loera on 11-02-2022 Lipase [Catalytic activity/Vol] 15.0 U/L 11.0-82.0 [facility] Lymphocytes Auto (Bld) [#/Vo l]Ordered By: Ana Maria Loera on 11-02-2022 Lymphocytes (Bld) [#/Vol] 1.9 10*3/uL 1.00-4.8 [facility] Lymphocytes/100 WBC Auto (Bl d)Ordered By: Ana Maria Loera on 11-02-2022 Lymphocytes/100 WBC (Bld) 25.3 % . [facility] MCH Auto (RBC) [Entitic mass ]Ordered By: Ana Maria Loera on 11-02-2022 MCH (RBC) [Entitic mass] 29.4 pg 27.5-35.2 [facility] MCHC Auto (RBC) [Mass/Vol]Or dered By: Ana Maria Loera on 11-02-2022 MCHC (RBC) [Mass/Vol] 32.5 g/dL 32.5-35.6 [facility] MCV Auto (RBC) [Entitic vol] Ordered By: Ana Maria Loera on 11-02-2022 MCV (RBC) [Entitic vol] 90.4 fL 83.5-101 [facility] Monocyte distribution width [Entitic volume] in Blood by AutomatedOrdered By: Ana Maria Loera on 11-02-2022 Monocyte distribution width Auto (Bld) [Entitic vol] 19.60 % 0.00-20.00 [facility] Monocytes Auto (Bld) [#/Vol] Ordered By: Ana Maria Loera on 11-02-2022 Monocytes (Bld) [#/Vol] 0.6 10*3/uL 0.0-0.8 [facility] Monocytes/100 WBC Auto (Bld) Ordered By: Ana Maria Loera on 11-02-2022 Monocytes/100 WBC (Bld) 7.6 % . [facility] Neutrophils Auto (Bld) [#/Vo l]Ordered By: Ana Maria Loera on 11-02-2022 Neutrophils (Bld) [#/Vol] 4.6 10*3/uL 1.8-7.7 [facility] Neutrophils/100 WBC Auto (Bl d)Ordered By: Ana Maria Loera on 11-02-2022 Neutrophils/100 WBC (Bld) 63.2 % . [facility] Nitrite Test strip Ql (U)Ord ered By: Ana Maria Loera on 11-02-2022 Nitrite Ql (U) Negative Negative [facility] No Panel InformationOrdered By: Ana Maria Loera on 11-02-2022 Estimated GFR (CKD-EPI) > 60.0 mL/Min [facility] Creatinine Clearance (Chem 109.84 [facility] Nucleated erythrocytes [Pres ence] in Blood by Automated countOrdered By: Ana Maria Loera on 11-02-2022 Nucleated RBC Auto Ql (Bld) 0.1 /100{WBC} 0-0.5 [facility] Platelet mean volume Auto (B ld) [Entitic vol]Ordered By: Ana Maria Loera on 11-02-2022 Platelet mean volume (Bld) [Entitic vol] 7.8 fL 6.6-10.1 [facility] Platelets Auto (Bld) [#/Vol] Ordered By: Ana Maria Loera on 11-02-2022 Platelets (Bld) [#/Vol] 260 10*3/uL 150-450 [facility] Potassium [Moles/volume] in Serum or PlasmaOrdered By: Ana Maria Loera on 11-02-2022 Potassium [Moles/Vol] 4.4 mmol/L 3.5-5.1 [facility] Protein Auto test strip (U) [Mass/Vol]Ordered By: Ana Maria Loera on 11-02-2022 Protein (U) [Mass/Vol] 300 mg/dL Negative [facility] Protein [Mass/volume] in Ser um or PlasmaOrdered By: Ana Maria Loera on 11-02-2022 Protein [Mass/Vol] 6.2 g/dL 6.4-8.9 [facility] RBC Auto (Bld) [#/Vol]Ordere d By: Ana Maria Loera on 11-02-2022 RBC (Bld) [#/Vol] 5.15 10*6/uL 3.90-5.60 [facility] Serum or plasma albumin/glob ulin mass ratioOrdered By: Ana Maria Loera on 11-02-2022 Albumin/Globulin [Mass ratio] 1.6 {ratio} [facility] Serum or plasma anion gap de terminationOrdered By: Ana Maria Loera on 11-02-2022 Anion gap [Moles/Vol] 9.1 mmol/L 6.0-15.0 [facility] Sodium [Moles/volume] in Ser um or PlasmaOrdered By: Ana Maria Loera on 11-02-2022 Sodium [Moles/Vol] 141 mmol/L 136-145 [facility] Specific gravity Auto test s trip (U) [Rel density]Ordered By: Ana Maria Loera on 11-02-2022 Specific gravity (U) [Rel density] 1.025 1.001-1.03 0 [facility] Squamous epithelial cells de tection in urine sediment by light microscopyOrdered By: Ana Maria Loera on 11-02-2022 Epithelial cells.squamous LM Ql (Urine sed) 3-4 [HPF] 0-2 [facility] Urea nitrogen [Mass/volume] in Serum or PlasmaOrdered By: Ana Maria Loera on 11-02-2022 Urea nitrogen [Mass/Vol] 12 mg/dL 7-25 [facility] Urine Cultureon 11-02-2022 Bacteria identified Cx Nom (U) No Growth 2 Days PERFORMED BY: [facility] [address] [place] [address] PATHOLOGIST PHOTOGEOLOGIST JERAMY DHALIWAL M.D. [facility] Comment on above: Performed By: #### C UU, ADDONUAPLUS ####[facility] [id number] [place] [id number] [facility] Urine bacteria detection by automated methodOrdered By: Ana Maria Loera on 11-02-2022 Bacteria Auto Ql (U) None seen None Seen [facility] Urine clarity by refractomet ry automatedOrdered By: Ana Maria Loera on 11-02-2022 Clarity Refractometry automated (U) Turbid Clear [facility] Urine glucose measurement by automated test strip (mass/volume)Ordered By: Ana Maria Loera on 11-02-2022 Glucose Auto test strip (U) [Mass/Vol] Normal mg/dL Normal [facility] Urine hemoglobin detection b y automated test stripOrdered By: Ana Maria Loera on 11-02-2022 Hemoglobin Auto test strip Ql (U) 3+ Negative [facility] Urine leukocyte esterase det ection by automated test stripOrdered By: Ana Maria Loera on 11-02-2022 Leukocyte esterase Auto test strip Ql (U) 2+ Negative [facility] Urine sediment renal epithel ial cell count by microscopy (number/high power field)Ordered By: Ana Maria Loera on 11-02-2022 Epithelial cells.renal LM.HPF (Urine sed) [#/Area] None seen [HPF] 0-1 [facility] Urobilinogen Auto test strip (U) [Mass/Vol]Ordered By: Ana Maria Loera on 11-02-2022 Urobilinogen (U) [Mass/Vol] Normal mg/dL Normal [facility] WBC Auto (Bld) [#/Vol]Ordere d By: Ana Maria Loera on 11-02-2022 WBC (Bld) [#/Vol] 7.3 10*3/uL 4.1-10.5 [facility] pH Auto test strip (U)Ordere d By: Ana Maria Loera on 11-02-2022 pH (U) 6.5 [pH] 5.0-9.0 [facility] Alanine aminotransferase [En zymatic activity/volume] in Serum or PlasmaOrdered By: Sam Mccoy on 10-30-2022 ALT [Catalytic activity/Vol] 13 U/L 7-52 [facility] Albumin [Mass/volume] in Ser um or Plasma by Bromocresol green (BCG) dye binding methoOrdered By: Sam Mccoy on 10-30-2022 Albumin BCG dye [Mass/Vol] 4.3 g/dL 3.5-5.7 [facility] Alkaline phosphatase [Enzyma tic activity/volume] in Serum or PlasmaOrdered By: Sam Mccoy on 10-30-2022 ALP [Catalytic activity/Vol] 55 U/L 34-104 [facility] Aspartate aminotransferase [ Enzymatic activity/volume] in Serum or PlasmaOrdered By: Sam Mccoy on 10-30-2022 AST [Catalytic activity/Vol] 13 U/L 13-39 [facility] Automated erythrocytes count in urine sediment (number/area)Ordered By: Sam Mccoy on 10-30-2022 RBC Auto (Urine sed) [#/Area] Innumerable [HPF] 0-4 [facility] Automated leukocytes count i n urine sediment (number/area)Ordered By: Sam Mccoy on 10-30-2022 WBC Auto (Urine sed) [#/Area] 50-100 [HPF] 0-4 [facility] Basophils Auto (Bld) [#/Vol] Ordered By: Sam Mccoy on 10-30-2022 Basophils (Bld) [#/Vol] 0.1 10*3/uL 0.0-0.2 [facility] Basophils/100 WBC Auto (Bld) Ordered By: Sam Mccoy on 10-30-2022 Basophils/100 WBC (Bld) 0.7 % . [facility] Bilirubin Test strip Ql (U)O rdered By: Sam Mccoy on 10-30-2022 Bilirubin Ql (U) Negative Negative [facility] Bilirubin.total [Mass/volume ] in Serum or PlasmaOrdered By: Sam Mccoy on 10-30-2022 Bilirubin [Mass/Vol] 0.6 mg/dL 0.3-1.[address] [facility] [address] abdomen pelvis wo conon 0 10-30-2022 CT abdomen pelvis wo con [facility] [place] [address] CT Scan Report Signed Patient: Carmelita Eastman MR#: [id number] [birth year] : 1975 Acct:[id number] Age/Sex: 47 / M ADM Date: 10/30/22 Loc: ER Room: Type: [facility] ER Attending Dr: Copies to: Sam Mccoy [...] Dave Arnold M.D.10/30/2022 8:58 AM Dictation Location: [place] [address] Transcribed By: [facility] 10/30/2258 Dictated By: Dave Arnold DO 10/30/22 0852 Signed By: 10/30/22857 Normal [facility] Calcium [Mass/volume] in Ser um or PlasmaOrdered By: Sam Mccoy on 10-30-2022 Calcium [Mass/Vol] 9.1 mg/dL 8.6-10.3 [facility] Carbon dioxide, total [Moles /volume] in Serum or PlasmaOrdered By: Sam Mccoy on 10-30-2022 CO2 [Moles/Vol] 23.4 mmol/L 21.0-31.0 [facility] Chloride [Moles/volume] in S rosi or PlasmaOrdered By: Sam Mccoy on 10-30-2022 Chloride [Moles/Vol] 107 mmol/L 98-107 [facility] Color Auto (U)Ordered By: Ambrose Mccoy on 10-30-2022 Color (U) Red Yellow [facility] Complete Blood Count Auto Di ffon 10-30-2022 Basophils (Bld) [#/Vol] 0.1 10*3/uL Normal 0.0-0.2 [facility] Comment on above: Result Comment: PERF ORMED BY: [place] [address] PATHOLOGIST PHOTOGEOLOGIST JERAMY DHALIWAL M.D. Performed By: #### C MP, CBC #### [address] Basophils/100 WBC (Bld) 0.7 % Normal . [facility] Comment on above: Performed By: #### C MP, CBC #### [facility] [address] Eosinophils (Bld) [#/Vol] 0.2 10*3/uL Normal 0.0-0.45 [facility] Comment on above: Performed By: #### C MP, CBC #### [facility] [address] [place] [address] [place] Eosinophils/100 WBC (Bld) 2.2 % Normal . [facility] Comment on above: Performed By: #### C MP, CBC #### [facility] [address] Erythrocyte distribution width (RBC) [Ratio] 13.2 % Normal 12.0-14.8 [facility] Comment on above: Performed By: #### C MP, CBC #### [address] Hematocrit (Bld) [Volume fraction] 44.7 % Normal 38.8-50.0 [facility] Comment on above: Performed By: #### C MP, CBC #### [address] Hemoglobin (Bld) [Mass/Vol] 15.0 g/dL Normal 13.0-17.0 [facility] Comment on above: Performed By: #### C MP, CBC #### [address] Lymphocytes (Bld) [#/Vol] 2.8 10*3/uL Normal 1.00-4.8 [facility] Comment on above: Performed By: #### C MP, CBC #### [place] [address] [place] Lymphocytes/100 WBC (Bld) 31.5 % Normal . [facility] Comment on above: Performed By: #### C MP, CBC #### [address] MCH (RBC) [Entitic mass] 30.1 pg Normal 27.5-35.2 [facility] Comment on above: Performed By: #### C MP, CBC #### [facility] [address] MCV (RBC) [Entitic vol] 89.5 fL Normal 83.5-101 [facility] Comment on above: Performed By: #### C MP, CBC #### [facility] [address] Mean Corpuscular HGB Conc 33.6 g/dL Normal 32.5-35.6 [facility] Comment on above: Performed By: #### C MP, CBC #### [facility] [address] Monocytes (Bld) [#/Vol] 0.6 10*3/uL Normal 0.0-0.8 [facility] Comment on above: Performed By: #### C MP, CBC #### [facility] [address] Monocytes/100 WBC (Bld) 18.04 % Normal 0.00-20.00 [facility] Comment on above: Performed By: #### C MP, CBC #### [place] [address] [place] Monocytes/100 WBC (Bld) 6.5 % Normal . [facility] Comment on above: Performed By: #### C MP, CBC #### [facility] [address] Neutrophils (Bld) [#/Vol] 5.2 10*3/uL Normal 1.8-7.7 [facility] Comment on above: Performed By: #### C MP, CBC #### [place] [address] [place] Neutrophils/100 WBC (Bld) 59.1 % Normal . [facility] Comment on above: Performed By: #### C MP, CBC #### [address] NRBC% 0.1 /100{WBC} Normal 0-0.5 [facility] Comment on above: Performed By: #### C MP, CBC #### [place] [id number] [place] Platelet mean volume (Bld) [Entitic vol] 7.5 fL Normal 6.6-10.1 [facility] Comment on above: Performed By: #### C MP, CBC #### [address] Platelets (Bld) [#/Vol] 266 10*3/uL Normal 150-450 [facility] Comment on above: Performed By: #### C MP, CBC #### [address] RBC (Bld) [#/Vol] 5.00 10*6/uL Normal 3.90-5.60 [facility] Comment on above: Performed By: #### C MP, CBC #### [address] WBC (Bld) [#/Vol] 8.8 10*3/uL Normal 4.1-10.5 [facility] Comment on above: Performed By: #### C MP, CBC #### [address] Comprehensive Metabolic Pane narayan 10-30-2022 Albumin [Mass/Vol] 4.3 g/dL Normal 3.5-5.7 [facility] Comment on above: Performed By: #### C MP, CBC #### [address] Albumin/Globulin [Mass ratio] 1.5 {ratio} Normal [facility] Comment on above: Performed By: #### C MP, CBC #### [address] ALP [Catalytic activity/Vol] 55 U/L Normal 34-104 [facility] Comment on above: Performed By: #### C MP, CBC #### [address] ALT [Catalytic activity/Vol] 13 U/L Normal 7-52 [facility] Comment on above: Performed By: #### C MP, CBC #### [address] [place] [address] [place] Anion gap [Moles/Vol] 11.4 mmol/L Normal 6.0-15.0 [facility] Comment on above: Performed By: #### C MP, CBC #### [facility] [address] AST [Catalytic activity/Vol] 13 U/L Normal 13-39 [facility] Comment on above: Performed By: #### C MP, CBC #### [facility] [address] Bilirubin [Mass/Vol] 0.6 mg/dL Normal 0.3-1.0 [facility] Comment on above: Performed By: #### C MP, CBC #### [facility] [address] Calcium [Mass/Vol] 9.1 mg/dL Normal 8.6-10.3 [facility] Comment on above: Performed By: #### C MP, CBC #### [facility] [address] Chloride [Moles/Vol] 107 mmol/L Normal 98-107 [facility] Comment on above: Performed By: #### C MP, CBC #### [facility] [address] CO2 [Moles/Vol] 23.4 mmol/L Normal 21.0-31.0 [facility] Comment on above: Performed By: #### C MP, CBC #### [facility] [address] Creatinine [Mass/Vol] 1.03 mg/dL Normal 0.70-1.30 [facility] Comment on above: Performed By: #### C MP, CBC #### [facility] [address] [place] [address] [place] Creatinine Clr Calc Pharmacy 105.52 Normal [facility] Comment on above: Result Comment: PERF ORMED BY: [place] [address] PATHOLOGIST PHOTOGEOLOGIST JERAMY DHALIWAL M.D. Performed By: #### C MP, CBC #### [facility] [address] [place] [address] [place] GFR/1.73 sq M.predicted MDRD (S/P/Bld) [Vol rate/Area] mL/min/{1.73_m2} [facility] Comment on above: Performed By: #### C MP, CBC #### [facility] [address] [place] [address] [place] Globulin (S) [Mass/Vol] 2.8 g/dL [facility] Comment on above: Performed By: #### C MP, CBC #### [address] Glucose [Mass/Vol] 100 mg/dL Normal 70-100 [facility] Comment on above: Result Comment: [facility] Glucose Reference Range is dependent on time and content of last meal. Glucose of more than 200 mg/dL in a nonstressed, ambulatory subject supports the diagnosis of Diabetes Mellitus. ADA recommended reference range Performed By: #### C MP, CBC #### [address] Potassium [Moles/Vol] 3.8 mmol/L Normal 3.5-5.1 [facility] Comment on above: Performed By: #### C MP, CBC #### [address] Protein [Mass/Vol] 7.1 g/dL Normal 6.4-8.9 [facility] Comment on above: Performed By: #### C MP, CBC #### [place] [address] [place] Sodium [Moles/Vol] 138 mmol/L Normal 136-145 [facility] Comment on above: Performed By: #### C MP, CBC #### [address] Urea nitrogen [Mass/Vol] 12 mg/dL Normal 7-25 [facility] Comment on above: Performed By: #### C MP, CBC #### [address] [place] [address] [place] Creatinine [Mass/volume] in Serum or PlasmaOrdered By: Sam Mccoy on 10-30-2022 Creatinine [Mass/Vol] 1.03 mg/dL 0.70-1.30 [facility] Dipstick and Microscopicon 0 10-30-2022 Appearance (U) Clear Normal Clear [facility] Comment on above: Order Comment: Name Collection Type:: Clean-Voided Midstream Performed By: #### A DDONUAPLUS, CUU ####[place] [id number] [facility] Bacteria,Urine None Seen Normal None Seen [facility] Comment on above: Order Comment: Name Collection Type:: Clean-Voided Midstream Performed By: #### A DDONUAPLUS, CUU ####[place] [id number] [facility] Bilirubin,Urine Negative Normal Negative [facility] Comment on above: Order Comment: Name Collection Type:: Clean-Voided Midstream Performed By: #### A DDONUAPLUS, CUU ####[place] [id number] [facility] Color (U) Red Critically abnormal Yellow [facility] Comment on above: Order Comment: Name Collection Type:: Clean-Voided Midstream Performed By: #### A DDONUAPLUS, CUU ####[address] [address] [facility] Glucose Ql (U) Normal Normal Normal [facility] Comment on above: Order Comment: Name Collection Type:: Clean-Voided Midstream Performed By: #### A DDONUAPLUS, CUU ####[address] [address] [facility] Hyaline Casts,Urine 0-8 Normal 0-8 [facility] Comment on above: Order Comment: Name Collection Type:: Clean-Voided Midstream Result Comment: PERF ORMED BY: [place] [address] PATHOLOGIST PHOTOGEOLOGIST JERAMY DHALIWAL M.D. Performed By: #### A DDONUAPLUS, CUU ####[place] [id number] [place] [address] [facility] Ketones Ql (U) Negative Normal Negative [facility] Comment on above: Order Comment: Name Collection Type:: Clean-Voided Midstream Performed By: #### A DDONUAPLUS, CUU ####[place] [id number] [facility] Leukocyte esterase Test strip Ql (U) 3+ High Negative [facility] Comment on above: Order Comment: Name Collection Type:: Clean-Voided Midstream Performed By: #### A DDONUAPLUS, CUU ####[place] [id number] [facility] Nitrite,Urine Negative Normal Negative [facility] Comment on above: Order Comment: Name Collection Type:: Clean-Voided Midstream Performed By: #### A DDONUAPLUS, CUU ####[place] [id number] [facility] Occult Blood,Urine 3+ High Negative [facility] Comment on above: Order Comment: Name Collection Type:: Clean-Voided Midstream Result Comment: PERF ORMED BY: [facility] [address] [place] [address] PATHOLOGIST PHOTOGEOLOGIST JERAMY DHALIWAL M.D. Performed By: #### A DDONUAPLUS, CUU ####[place] [id number] [facility] pH (U) 6.0 [pH] Normal 5.0-9.0 [facility] Comment on above: Order Comment: Name Collection Type:: Clean-Voided Midstream Performed By: #### A DDONUAPLUS, CUU ####[place] [id number] [facility] Protein (U) [Mass/Vol] 100 mg/dL High Negative [facility] Comment on above: Order Comment: Name Collection Type:: Clean-Voided Midstream Performed By: #### A DDONUAPLUS, CUU ####[place] [id number] [facility] RBC,Urine Innumerable High 0-4 [facility] Comment on above: Order Comment: Name Collection Type:: Clean-Voided Midstream Performed By: #### A DDONUAPLUS, CUU ####[address] Specificy [place],Urine 1.010 Normal 1.001-1.03 0 [facility] Comment on above: Order Comment: Name Collection Type:: Clean-Voided Midstream Performed By: #### A DDONUAPLUS, CUU ####[place] [id number] [facility] Squamous Epithelial Cell,Urine None Seen Normal 0-2 [facility] Comment on above: Order Comment: Name Collection Type:: Clean-Voided Midstream Performed By: #### A DDONUAPLUS, CUU ####[address] Urobilinogen,Urine Normal Normal Normal [facility] Comment on above: Order Comment: Name Collection Type:: Clean-Voided Midstream Performed By: #### A DDONUAPLUS, CUU ####[place] [id number] [facility] WBC,Urine 50-100 High 0-4 [facility] Comment on above: Order Comment: Name Collection Type:: Clean-Voided Midstream Performed By: #### A DDONUAPLUS, CUU ####[address] Eosinophils Auto (Bld) [#/Vo l]Ordered By: Sam Mccoy on 10-30-2022 Eosinophils (Bld) [#/Vol] 0.2 10*3/uL 0.0-0.45 [facility] Eosinophils/100 WBC Auto (Bl d)Ordered By: Sam Mccoy on 10-30-2022 Eosinophils/100 WBC (Bld) 2.2 % . [facility] Erythrocyte distribution wid th Auto (RBC) [Ratio]Ordered By: Sam Mccoy on 10-30-2022 Erythrocyte distribution width (RBC) [Ratio] 13.2 % 12.0-14.8 [facility] Globulin Calc (S) [Mass/Vol] Ordered By: Sam Mccoy on 10-30-2022 Globulin (S) [Mass/Vol] 2.8 g/dL [facility] Glucose [Mass/volume] in Ser um or PlasmaOrdered By: Sam Mccoy on 10-30-2022 Glucose [Mass/Vol] 100 mg/dL 70-100 [facility] Comment on above: ADA recommended refe rence rangeRandom Glucose Reference Range is dependent on time and content of last meal. Glucose of more than 200 mg/dL in a nonstressed, ambulatory subject supports the diagnosis of Diabetes Mellitus. Hematocrit Auto (Bld) [Volum e fraction]Ordered By: Sam Mccoy on 10-30-2022 Hematocrit (Bld) [Volume fraction] 44.7 % 38.8-50.0 [facility] Hemoglobin [Mass/volume] in BloodOrdered By: Sam Mccoy on 10-30-2022 Hemoglobin (Bld) [Mass/Vol] 15.0 g/dL 13.0-17.0 [facility] Ketones Auto test strip (U) [Mass/Vol]Ordered By: Sam Mccoy on 10-30-2022 Ketones (U) [Mass/Vol] Negative Negative [facility] - UrinalysisOrder ed By: Sam Mccoy on 10-30-2022 Hyaline casts LM Ql (Urine sed) 0-8 [LPF] 0-8 [facility] Leukocytes [#/volume] correc carl for nucleated erythrocytes in Blood by Automated counOrdered By: Sam Mccoy on 10-30-2022 WBC corrected for nucl RBC Auto (Bld) [#/Vol] 8.8 10*3/uL 4.1-10.5 [facility] Lymphocytes Auto (Bld) [#/Vo l]Ordered By: Sam Mccoy on 10-30-2022 Lymphocytes (Bld) [#/Vol] 2.8 10*3/uL 1.00-4.8 [facility] Lymphocytes/100 WBC Auto (Bl d)Ordered By: Sam Mccoy on 10-30-2022 Lymphocytes/100 WBC (Bld) 31.5 % . [facility] MCH Auto (RBC) [Entitic mass ]Ordered By: Sam Mccoy on 10-30-2022 MCH (RBC) [Entitic mass] 30.1 pg 27.5-35.2 [facility] MCHC Auto (RBC) [Mass/Vol]Or dered By: Sam Mccoy on 10-30-2022 MCHC (RBC) [Mass/Vol] 33.6 g/dL 32.5-35.6 [facility] MCV Auto (RBC) [Entitic vol] Ordered By: Sam Mccoy on 10-30-2022 MCV (RBC) [Entitic vol] 89.5 fL 83.5-101 [facility] Monocyte distribution width [Entitic volume] in Blood by AutomatedOrdered By: Sam Mccoy on 10-30-2022 Monocyte distribution width Auto (Bld) [Entitic vol] 18.04 % 0.00-20.00 [facility] Monocytes Auto (Bld) [#/Vol] Ordered By: Sam Mccoy on 10-30-2022 Monocytes (Bld) [#/Vol] 0.6 10*3/uL 0.0-0.8 [facility] Monocytes/100 WBC Auto (Bld) Ordered By: Sam Mccoy on 10-30-2022 Monocytes/100 WBC (Bld) 6.5 % . [facility] Neutrophils Auto (Bld) [#/Vo l]Ordered By: Sam Mccoy on 10-30-2022 Neutrophils (Bld) [#/Vol] 5.2 10*3/uL 1.8-7.7 [facility] Neutrophils/100 WBC Auto (Bl d)Ordered By: Sam Mccoy on 10-30-2022 Neutrophils/100 WBC (Bld) 59.1 % . [facility] Nitrite Test strip Ql (U)Ord ered By: Sam Mccoy on 10-30-2022 Nitrite Ql (U) Negative Negative [facility] No Panel InformationOrdered By: Sam Mccoy on 10-30-2022 Estimated GFR (CKD-EPI) > 60.0 mL/Min [facility] Creatinine Clearance (Chem 105.52 [facility] Nucleated erythrocytes [Pres ence] in Blood by Automated countOrdered By: Sam Mccoy on 10-30-2022 Nucleated RBC Auto Ql (Bld) 0.1 /100{WBC} 0-0.5 [facility] Platelet mean volume Auto (B ld) [Entitic vol]Ordered By: Sam Mccoy on 10-30-2022 Platelet mean volume (Bld) [Entitic vol] 7.5 fL 6.6-10.1 [facility] Platelets Auto (Bld) [#/Vol] Ordered By: Sam Mccoy on 10-30-2022 Platelets (Bld) [#/Vol] 266 10*3/uL 150-450 [facility] Potassium [Moles/volume] in Serum or PlasmaOrdered By: Sam Mccoy on 10-30-2022 Potassium [Moles/Vol] 3.8 mmol/L 3.5-5.1 [facility] Protein Auto test strip (U) [Mass/Vol]Ordered By: Sam Mccoy on 10-30-2022 Protein (U) [Mass/Vol] 100 mg/dL Negative [facility] Protein [Mass/volume] in Ser um or PlasmaOrdered By: Sam Mccoy on 10-30-2022 Protein [Mass/Vol] 7.1 g/dL 6.4-8.9 [facility] RBC Auto (Bld) [#/Vol]Ordere d By: Sam Mccoy on 10-30-2022 RBC (Bld) [#/Vol] 5.00 10*6/uL 3.90-5.60 [facility] Serum or plasma albumin/glob ulin mass ratioOrdered By: Sam Mccoy on 10-30-2022 Albumin/Globulin [Mass ratio] 1.5 {ratio} [facility] Serum or plasma anion gap de terminationOrdered By: Sam Mccoy on 10-30-2022 Anion gap [Moles/Vol] 11.4 mmol/L 6.0-15.0 [facility] Sodium [Moles/volume] in Ser um or PlasmaOrdered By: Sam Mccoy on 10-30-2022 Sodium [Moles/Vol] 138 mmol/L 136-145 [facility] Specific gravity Auto test s trip (U) [Rel density]Ordered By: Sam Mccoy on 10-30-2022 Specific gravity (U) [Rel density] 1.010 1.001-1.03 0 [facility] Squamous epithelial cells de tection in urine sediment by light microscopyOrdered By: Sam Mccoy on 10-30-2022 Epithelial cells.squamous LM Ql (Urine sed) None seen [HPF] 0-2 [facility] Urea nitrogen [Mass/volume] in Serum or PlasmaOrdered By: Sam Mccoy on 10-30-2022 Urea nitrogen [Mass/Vol] 12 mg/dL 7-25 [facility] Urine Cultureon 10-30-2022 Bacteria identified Cx Nom (U) No Growth 2 Days PERFORMED BY: [facility] [address] [place] [address] PATHOLOGIST PHOTOGEOLOGIST JERAMY DHALIWAL M.D. [facility] Comment on above: Performed By: #### A DDONUAPLUS, CUU ####[facility] [place] [address] [facility] Urine bacteria detection by automated methodOrdered By: Sam Mccoy on 10-30-2022 Bacteria Auto Ql (U) None seen None Seen [facility] Urine clarity by refractomet ry automatedOrdered By: Sam Mccoy on 10-30-2022 Clarity Refractometry automated (U) Clear Clear [facility] Urine culture routineOrdered By: Sam Mccoy on 10-30-2022 Bacteria identified Cx Nom (U) No Growth 2 Days [facility] Urine glucose measurement by automated test strip (mass/volume)Ordered By: Sam Mccoy on 10-30-2022 Glucose Auto test strip (U) [Mass/Vol] Normal mg/dL Normal [facility] Urine hemoglobin detection b y automated test stripOrdered By: Sam Mccoy on 10-30-2022 Hemoglobin Auto test strip Ql (U) 3+ Negative [facility] Urine leukocyte esterase det ection by automated test stripOrdered By: Sam Mccoy on 10-30-2022 Leukocyte esterase Auto test strip Ql (U) 3+ Negative [facility] Urobilinogen Auto test strip (U) [Mass/Vol]Ordered By: Sam Mccoy on 10-30-2022 Urobilinogen (U) [Mass/Vol] Normal mg/dL Normal [facility] WBC Auto (Bld) [#/Vol]Ordere d By: Sam Mccoy on 10-30-2022 WBC (Bld) [#/Vol] 8.8 10*3/uL 4.1-10.5 [facility] pH Auto test strip (U)Ordere d By: Sam Mccoy on 10-30-2022 pH (U) 6.0 [pH] 5.0-9.0 [facility] OPERATIVE REPORTon 3 OPERATIVE REPORT [address] [address] OPERATIVE REPORT PATIENT NAME: CARMELITA EASTMAN : 1975 MED REC NO: [id number] ROOM: ACCOUNT NO: [id number] ADMIT DATE: 10/23/2022 PROVIDER: Fara López MD [...] scheduled for postoperative KUB. FARA LÓPEZ MD /[id number] Doc#: [id number] CC: Fara López MD Normal [facility] XR ABDOMEN (KUB) (SINGLE AP VIEW)on 10-10-2022 [...] Elijah Rueda MD 10/11/22 Final result Normal [facility] Basic Metabolic Panelon 09-28 Anion gap [Moles/Vol] 8 mmol/L Low 9-15 [facility] Comment on above: Performed By: #### T RP5 #### [facility] [address] [facility] [address] Calcium [Mass/Vol] 8.4 mg/dL Low 8.5-9.[address] [facility] Comment on above: Performed By: #### T RP5 #### [facility] [address] [place] [address] Chloride [Moles/Vol] 106 mmol/L Normal 95-107 [facility] Comment on above: Performed By: #### T RP5 #### [facility] [address] [place] [address] CO2 [Moles/Vol] 25 mmol/L Normal 20-31 [facility] Comment on above: Performed By: #### T RP5 #### [facility] [address] [place] [address] Creatinine [Mass/Vol] 0.97 mg/dL Normal 0.70-1.20 [facility] Comment on above: Performed By: #### T RP5 #### [facility] [address] [place] [address] GFR >60.0 Normal >60 [facility] Comment on above: Result Comment: Pedi atric [...] secretion. Performed By: #### T RP5 #### [facility] [address] [place] [address] Glucose [Mass/Vol] 80 mg/dL Normal 70-99 [facility] Comment on above: Performed By: #### T RP5 #### [facility] [address] [place] [address] Potassium [Moles/Vol] 4.4 mmol/L Normal 3.4-4.9 [facility] Comment on above: Performed By: #### T RP5 #### [facility] [address] [place] [address] Sodium [Moles/Vol] 139 mmol/L Normal 135-144 [facility] Comment on above: Performed By: #### T RP5 #### [facility] [address] [place] [address] Urea nitrogen [Mass/Vol] 10 mg/dL Normal 6-20 [facility] Comment on above: Performed By: #### T RP5 #### [facility] [address] [place] [address] CBC With Platelet and Differ entialon 10-09-2022 Basophils (Bld) [#/Vol] 0.1 10*3/uL Normal 0.0-0.[address] [facility] Comment on above: Performed By: #### C BCWD #### [facility] [address] [place] [address] Basophils/100 WBC (Bld) 0.8 % Normal [facility] Comment on above: Performed By: #### C BCWD #### [facility] [address] [place] [address] Eosinophils (Bld) [#/Vol] 0.3 10*3/uL Normal 0.0-0.7 [facility] Comment on above: Performed By: #### C BCWD #### [facility] [address] [place] [address] Eosinophils/100 WBC (Bld) 4.1 % Normal [facility] Comment on above: Performed By: #### C BCWD #### [facility] [address] [place] [address] Erythrocyte distribution width (RBC) [Ratio] 13.3 % Normal 11.5-14.5 [facility] Comment on above: Performed By: #### C BCWD #### [facility] [address] [place] [address] Hematocrit (Bld) [Volume fraction] 44.0 % Normal 42.0-52.0 [facility] Comment on above: Performed By: #### C BCWD #### [facility] [address] [place] [address] Hemoglobin (Bld) [Mass/Vol] 14.4 g/dL Normal 14.0-18.[address] [facility] Comment on above: Performed By: #### C BCWD #### [facility] [address] [place] [address] Lymphocytes (Bld) [#/Vol] 2.6 10*3/uL Normal 1.0-4.[address] [facility] Comment on above: Performed By: #### C BCWD #### [facility] [address] [place] [address] Lymphocytes/100 WBC (Bld) 40.6 % Normal [facility] Comment on above: Performed By: #### C BCWD #### [facility] [address] [place] [address] MCH (RBC) [Entitic mass] 30.0 pg Normal 27.0-31.[address] [facility] Comment on above: Performed By: #### C BCWD #### [facility] [address] [place] [address] MCHC 32.7 % Low 33.0-37.0 [facility] Comment on above: Performed By: #### C BCWD #### [facility] [address] [place] [address] MCV (RBC) [Entitic vol] 91.7 fL Normal 79.0-92.2 [facility] Comment on above: Performed By: #### C BCWD #### [facility] [address] [place] [address] Monocytes (Bld) [#/Vol] 0.5 10*3/uL Normal 0.2-0.8 [facility] Comment on above: Performed By: #### C BCWD #### [facility] [address] [place] [address] Monocytes/100 WBC (Bld) 7.2 % Normal [facility] Comment on above: Performed By: #### C BCWD #### [facility] [address] [place] [address] Neutrophils (Bld) [#/Vol] 3.0 10*3/uL Normal 1.4-6.[address] [facility] Comment on above: Performed By: #### C BCWD #### [facility] [address] [place] [address] Neutrophils/100 WBC (Bld) 47.3 % Normal [facility] Comment on above: Performed By: #### C BCWD #### [facility] [address] [place] [address] Platelets (Bld) [#/Vol] 236 10*3/uL Normal 130-400 [facility] Comment on above: Performed By: #### C BCWD #### [facility] [address] [place] [address] RBC (Bld) [#/Vol] 4.80 10*6/uL Normal 4.70-6.[address] [facility] Comment on above: Performed By: #### C BCWD #### [facility] [address] [place] [address] WBC (Bld) [#/Vol] 6.3 10*3/uL Normal 4.8-10.[address] [facility] Comment on above: Performed By: #### C BCWD #### [facility] [address] [place] [address] CT ABDOMEN PELVIS WO CONTRAS Ton 10-08-2022 [...] Leif Herrmann MD 10/08/22 Final result Normal [facility] Basic Metabolic Panelon 06-1 Anion gap [Moles/Vol] 11 mmol/L Normal 9-15 [facility] Comment on above: Performed By: #### B MP #### [facility] [address] [place] [address] Calcium [Mass/Vol] 8.8 mg/dL Normal 8.5-9.[address] [facility] Comment on above: Performed By: #### B MP #### [facility] [address] [place] [address] Chloride [Moles/Vol] 106 mmol/L Normal 95-107 [facility] Comment on above: Performed By: #### B MP #### [facility] [address] [place] [address] CO2 [Moles/Vol] 22 mmol/L Normal 20-31 [facility] Comment on above: Performed By: #### B MP #### [facility] [address] [place] [address] Creatinine [Mass/Vol] 0.87 mg/dL Normal 0.70-1.20 [facility] Comment on above: Performed By: #### B MP #### [facility] [address] [place] [address] GFR >60.0 Normal >60 [facility] Comment on above: Result Comment: Pedi atric [...] secretion. Performed By: #### B MP #### [facility] [address] [place] [address] Glucose [Mass/Vol] 123 mg/dL Critically high 70-[address] [facility] Comment on above: Performed By: #### B MP #### [facility] [address] [place] [address] Potassium [Moles/Vol] 4.8 mmol/L Normal 3.4-4.9 [facility] Comment on above: Performed By: #### B MP #### [facility] [address] [place] [address] Sodium [Moles/Vol] 139 mmol/L Normal 135-[address] [facility] Comment on above: Performed By: #### B MP #### [facility] [address] [place] [address] Urea nitrogen [Mass/Vol] 13 mg/dL Normal 6-20 [facility] Comment on above: Performed By: #### B MP #### [facility] [address] [place] [address] CBC With Platelet and Differ entialon 10-07-2022 Basophils (Bld) [#/Vol] 0.0 10*3/uL Normal 0.0-0.[address] [facility] Comment on above: Performed By: #### T RP5 #### [facility] [address] [place] [address] Basophils/100 WBC (Bld) 0.2 % Normal [facility] Comment on above: Performed By: #### T RP5 #### [facility] [address] [place] [address] Eosinophils (Bld) [#/Vol] 0.0 10*3/uL Normal 0.0-0.7 [facility] Comment on above: Performed By: #### T RP5 #### [facility] [address] [place] [address] Eosinophils/100 WBC (Bld) 0.0 % Normal [facility] Comment on above: Performed By: #### T RP5 #### [facility] [address] [place] [address] Erythrocyte distribution width (RBC) [Ratio] 12.8 % Normal 11.5-14.[address] [facility] Comment on above: Performed By: #### T RP5 #### [facility] [address] [place] [address] Hematocrit (Bld) [Volume fraction] 46.0 % Normal 42.0-52.[address] [facility] Comment on above: Performed By: #### T RP5 #### [facility] [address] [place] [address] Hemoglobin (Bld) [Mass/Vol] 15.0 g/dL Normal 14.0-18.[address] [facility] Comment on above: Performed By: #### T RP5 #### [facility] [address] [place] [address] Lymphocytes (Bld) [#/Vol] 1.1 10*3/uL Normal 1.0-4.[address] [facility] Comment on above: Performed By: #### T RP5 #### [facility] [address] [place] [address] Lymphocytes/100 WBC (Bld) 10.5 % Normal [facility] Comment on above: Performed By: #### T RP5 #### [facility] [address] [place] [address] MCH (RBC) [Entitic mass] 30.1 pg Normal 27.0-31.[address] [facility] Comment on above: Performed By: #### T RP5 #### [facility] [address] [place] [address] MCHC 32.6 % Low 33.0-37.[address] [facility] Comment on above: Performed By: #### T RP5 #### [facility] [address] [place] [address] MCV (RBC) [Entitic vol] 92.2 fL Normal 79.0-92.[address] [facility] Comment on above: Performed By: #### T RP5 #### [facility] [address] [place] [address] Monocytes (Bld) [#/Vol] 0.3 10*3/uL Normal 0.2-0.[address] [facility] Comment on above: Performed By: #### T RP5 #### [facility] [address] [place] [address] Monocytes/100 WBC (Bld) 3.0 % Normal [facility] Comment on above: Performed By: #### T RP5 #### [facility] [address] [place] [address] Neutrophils (Bld) [#/Vol] 9.5 10*3/uL Critically high 1.4-6.5 [facility] Comment on above: Performed By: #### T RP5 #### [facility] [address] [place] [address] Neutrophils/100 WBC (Bld) 86.3 % Normal [facility] Comment on above: Performed By: #### T RP5 #### [facility] [address] [place] [address] Platelets (Bld) [#/Vol] 251 10*3/uL Normal 130-400 [facility] Comment on above: Performed By: #### T RP5 #### [facility] [address] [place] [address] RBC (Bld) [#/Vol] 4.99 10*6/uL Normal 4.70-6.10 [facility] Comment on above: Performed By: #### T RP5 #### [facility] [address] [place] [address] WBC (Bld) [#/Vol] 11.0 10*3/uL Critically high 4.8-10.8 [facility] Comment on above: Performed By: #### T RP5 #### [facility] [address] [place] [address] CBC With Platelet and Differ entialon 10-06-2022 Basophils (Bld) [#/Vol] 0.1 10*3/uL Normal 0.0-0.2 [facility] Comment on above: Performed By: #### C BCWD #### [facility] [address] [place] [address] Basophils/100 WBC (Bld) 1.0 % Normal [facility] Comment on above: Performed By: #### C BCWD #### [facility] [address] [place] [address] Eosinophils (Bld) [#/Vol] 0.1 10*3/uL Normal 0.0-0.7 [facility] Comment on above: Performed By: #### C BCWD #### [facility] [address] [place] [address] Eosinophils/100 WBC (Bld) 1.8 % Normal [facility] Comment on above: Performed By: #### C BCWD #### [facility] [address] [place] [address] Erythrocyte distribution width (RBC) [Ratio] 13.7 % Normal 11.5-14.5 [facility] Comment on above: Performed By: #### C BCWD #### [facility] [address] [place] [address] Hematocrit (Bld) [Volume fraction] 44.5 % Normal 42.0-52.0 [facility] Comment on above: Performed By: #### C BCWD #### [facility] [address] [place] [address] Hemoglobin (Bld) [Mass/Vol] 14.5 g/dL Normal 14.0-18.[address] [facility] Comment on above: Performed By: #### C BCWD #### [facility] [address] [place] [address] Lymphocytes (Bld) [#/Vol] 2.5 10*3/uL Normal 1.0-4.[address] [facility] Comment on above: Performed By: #### C BCWD #### [facility] [address] [place] [address] Lymphocytes/100 WBC (Bld) 30.2 % Normal [facility] Comment on above: Performed By: #### C BCWD #### [facility] [address] [place] [address] MCH (RBC) [Entitic mass] 30.3 pg Normal 27.0-31.3 [facility] Comment on above: Performed By: #### C BCWD #### [facility] [address] [place] [address] MCHC 32.6 % Low 33.0-37.0 [facility] Comment on above: Performed By: #### C BCWD #### [facility] [address] [place] [address] MCV (RBC) [Entitic vol] 92.9 fL Critically high 79.0-92.[address] [facility] Comment on above: Performed By: #### C BCWD #### [facility] [address] [place] [address] Monocytes (Bld) [#/Vol] 0.6 10*3/uL Normal 0.2-0.8 [facility] Comment on above: Performed By: #### C BCWD #### [facility] [address] [place] [address] Monocytes/100 WBC (Bld) 6.8 % Normal [facility] Comment on above: Performed By: #### C BCWD #### [facility] [address] [place] [address] Neutrophils (Bld) [#/Vol] 5.0 10*3/uL Normal 1.4-6.5 [facility] Comment on above: Performed By: #### C BCWD #### [facility] [address] [place] [address] Neutrophils/100 WBC (Bld) 60.2 % Normal [facility] Comment on above: Performed By: #### C BCWD #### [facility] [address] [place] [address] Platelets (Bld) [#/Vol] 245 10*3/uL Normal 130-400 [facility] Comment on above: Performed By: #### C BCWD #### [facility] [address] [place] [address] RBC (Bld) [#/Vol] 4.80 10*6/uL Normal 4.70-6.10 [facility] Comment on above: Performed By: #### C BCWD #### [facility] [address] [place] [address] WBC (Bld) [#/Vol] 8.2 10*3/uL Normal 4.8-10.[address] [facility] Comment on above: Performed By: #### C BCWD #### [facility] [address] [place] [address] Basophils (Bld) [#/Vol] 0.1 10*3/uL Normal 0.0-0.[address] [facility] Comment on above: Performed By: #### T RP5 #### [facility] [address] [place] [address] Basophils/100 WBC (Bld) 1.1 % Normal [facility] Comment on above: Performed By: #### T RP5 #### [facility] [address] [place] [address] Eosinophils (Bld) [#/Vol] 0.2 10*3/uL Normal 0.0-0.7 [facility] Comment on above: Performed By: #### T RP5 #### [facility] [address] [place] [address] Eosinophils/100 WBC (Bld) 2.8 % Normal [facility] Comment on above: Performed By: #### T RP5 #### [facility] [address] [place] [address] Erythrocyte distribution width (RBC) [Ratio] 13.4 % Normal 11.5-14.5 [facility] Comment on above: Performed By: #### T RP5 #### [facility] [address] [place] [address] Hematocrit (Bld) [Volume fraction] 47.4 % Normal 42.0-52.0 [facility] Comment on above: Performed By: #### T RP5 #### [facility] [address] [place] [address] Hemoglobin (Bld) [Mass/Vol] 15.7 g/dL Normal 14.0-18.[address] [facility] Comment on above: Performed By: #### T RP5 #### [facility] [address] [place] [address] Lymphocytes (Bld) [#/Vol] 3.3 10*3/uL Normal 1.0-4.[address] [facility] Comment on above: Performed By: #### T RP5 #### [facility] [address] [place] [address] Lymphocytes/100 WBC (Bld) 37.8 % Normal [facility] Comment on above: Performed By: #### T RP5 #### [facility] [address] [place] [address] MCH (RBC) [Entitic mass] 30.5 pg Normal 27.0-31.[address] [facility] Comment on above: Performed By: #### T RP5 #### [facility] [address] [place] [address] MCHC 33.0 % Normal 33.0-37.[address] [facility] Comment on above: Performed By: #### T RP5 #### [facility] [address] [place] [address] MCV (RBC) [Entitic vol] 92.4 fL Critically high 79.0-92.[address] [facility] Comment on above: Performed By: #### T RP5 #### [facility] [address] [place] [address] Monocytes (Bld) [#/Vol] 0.6 10*3/uL Normal 0.2-0.[address] [facility] Comment on above: Performed By: #### T RP5 #### [facility] [address] [place] [address] Monocytes/100 WBC (Bld) 7.0 % Normal [facility] Comment on above: Performed By: #### T RP5 #### [facility] [address] [place] [address] Neutrophils (Bld) [#/Vol] 4.5 10*3/uL Normal 1.4-6.[address] [facility] Comment on above: Performed By: #### T RP5 #### [facility] [address] [place] [address] Neutrophils/100 WBC (Bld) 51.3 % Normal [facility] Comment on above: Performed By: #### T RP5 #### [facility] [address] [place] [address] Platelets (Bld) [#/Vol] 271 10*3/uL Normal 130-400 [facility] Comment on above: Performed By: #### T RP5 #### [facility] [address] [place] [address] RBC (Bld) [#/Vol] 5.13 10*6/uL Normal 4.70-6.10 [facility] Comment on above: Performed By: #### T RP5 #### [facility] [address] [place] [address] WBC (Bld) [#/Vol] 8.8 10*3/uL Normal 4.8-10.[address] [facility] Comment on above: Performed By: #### T RP5 #### [facility] [address] [place] [address] [place] ABDOMEN PELVIS WO CONTRAS Ton 10-06-2022 [...] Darlene Varela MD 10/06/22 Final result Normal [facility] Comprehensive Metabolic Pane narayan 10-06-2022 Albumin [Mass/Vol] 4.3 g/dL Normal 3.5-4.6 [facility] Comment on above: Performed By: #### B NPPR #### [facility] [address] [facility] [address] ALP [Catalytic activity/Vol] 70 U/L Normal 35-104 [facility] Comment on above: Performed By: #### B NPPR #### [facility] [address] [place] [address] ALT [Catalytic activity/Vol] 21 U/L Normal 0-41 [facility] Comment on above: Performed By: #### B NPPR #### [facility] [address] [place] [address] Anion gap [Moles/Vol] 9 mmol/L Normal 9-15 [facility] Comment on above: Performed By: #### B NPPR #### [facility] [address] [place] [address] AST [Catalytic activity/Vol] 19 U/L Normal 0-40 [facility] Comment on above: Performed By: #### B NPPR #### [facility] [address] [place] [address] Bilirubin [Mass/Vol] 0.3 mg/dL Normal 0.2-0.7 [facility] Comment on above: Performed By: #### B NPPR #### [facility] [address] [place] [address] Calcium [Mass/Vol] 9.4 mg/dL Normal 8.5-9.9 [facility] Comment on above: Performed By: #### B NPPR #### [facility] [address] [place] [address] Chloride [Moles/Vol] 106 mmol/L Normal 95-107 [facility] Comment on above: Performed By: #### B NPPR #### [facility] [address] [place] [address] CO2 [Moles/Vol] 25 mmol/L Normal 20-31 [facility] Comment on above: Performed By: #### B NPPR #### [facility] [address] [place] [address] Creatinine [Mass/Vol] 1.19 mg/dL Normal 0.70-1.20 [facility] Comment on above: Performed By: #### B NPPR #### [facility] [address] [place] [address] GFR >60.0 Normal >60 [facility] Comment on above: Result Comment: Aura atric [...] secretion. Performed By: #### B NPPR #### [facility] [address] [place] [address] Globulin (S) [Mass/Vol] 2.7 g/dL Normal 2.3-3.[address] [facility] Comment on above: Performed By: #### B NPPR #### [facility] [address] [place] [address] Glucose [Mass/Vol] 104 mg/dL Critically high 70-99 [facility] Comment on above: Performed By: #### B NPPR #### [facility] [address] [place] [address] Potassium [Moles/Vol] 3.8 mmol/L Normal 3.4-4.9 [facility] Comment on above: Performed By: #### B NPPR #### [facility] [address] [place] [address] Protein [Mass/Vol] 7.0 g/dL Normal 6.3-8.[address] [facility] Comment on above: Performed By: #### B NPPR #### [facility] [address] [place] [address] Sodium [Moles/Vol] 140 mmol/L Normal 135-144 [facility] Comment on above: Performed By: #### B NPPR #### [facility] [address] [place] [address] Urea nitrogen [Mass/Vol] 16 mg/dL Normal 6-20 [facility] Comment on above: Performed By: #### B NPPR #### [facility] [address] [place] [address] FLUORO FOR SURGICAL PROCEDUR ESon 10-06-2022 FLUORO [...] Luis Guerrero MD 10/06/22 Final result Normal [facility] Lactic Acidon 10-06-2022 Lactate [Moles/Vol] 1.1 mmol/L Normal 0.5-2.[address] [facility] Comment on above: Performed By: #### T RP5 #### [facility] [address] [place], [place] [address] [place] [address] OPERATIVE REPORTon OPERATIVE REPORT [facility] [address] [place] [id number] OPERATIVE REPORT PATIENT NAME: CARMELITA EASTMAN : 1975 MED REC NO: [id number] ROOM: ACCOUNT NO: [id number] ADMIT DATE: 10/06/2022 PROVIDER: Fara López MD DATE OF PROCEDURE: 10/06/2022 PREOPERATIVE DIAGNOSIS: Left 6-7 mm proximal ureteral stone. POSTOPERATIVE DIAGNOSIS: Left 6-7 mm proximal ureteral stone. PROCEDURE PERFORMED: Cystoscopy with left retrograde pyelogram, left 6-Luxembourger x 26 cm double-J stent insertion. SURGEON: [...] Uro-Jet was guided per urethra. Then, a 21-Luxembourger cystoscope was then guided atraumatically through the urethra into the bladder. The urethra appeared unremarkable. Prostatic urethra appeared unremarkable. Upon entering the bladder, bladder was drained of clear yellow urine. There were no bladder wall tumors. Both ureteral orifices were normal position with a clear efflux of urine. At conclusion of this, a 6-Luxembourger end-hole flexible tip ureteral catheter was guided [...] At this point, attempts to place the 6-Luxembourger end-hole ureteral catheter were met with difficulty due to the impacted nature of the stone. Therefore, the end-hole catheter was removed. A 6-Luxembourger x 26-cm tapered tipped double-J stent was [...] discuss definitive stone management. FARA LÓPEZ MD /[id number] Doc#: [id number] CC: Fara López MD Normal [facility] Urinalysis, reflex to cultur tamara 10-06-2022 Urine Reflexed to Culture Not Indicated Normal [facility] Comment on above: Performed By: #### U AR #### [facility] [address] [facility] [address] Bilirubin Ql (U) Negative Normal Negative [facility] Comment on above: Performed By: #### U AR #### [facility] [address] [facility] [address] Clarity (U) Clear Normal Clear [facility] Comment on above: Performed By: #### U AR #### [facility] [address] [place] [address] Color (U) Yellow Normal [place] [facility] Comment on above: Performed By: #### U AR #### [facility] [address] [place] [address] Glucose Ql (U) Negative Normal Negative [facility] Comment on above: Performed By: #### U AR #### [facility] [address] [place] [address] Hemoglobin Ql (U) LARGE Abnormal Negative [facility] Comment on above: Performed By: #### U AR #### [facility] [address] [place] [address] Ketones Ql (U) TRACE Abnormal Negative [facility] Comment on above: Performed By: #### U AR #### [facility] [address] [place] [address] Leukocyte esterase Test strip Ql (U) Negative Normal Negative [facility] Comment on above: Performed By: #### U AR #### [facility] [address] [place] [address] Nitrite Ql (U) Negative Normal Negative [facility] Comment on above: Performed By: #### U AR #### [facility] [address] [place] [address] pH (U) 5.5 [pH] Normal 5.0-9.0 [facility] Comment on above: Performed By: #### U AR #### [facility] [address] [place] [address] Protein Ql (U) 100 mg/dL Abnormal Negative [facility] Comment on above: Performed By: #### U AR #### [facility] [address] [place] [address] Specific gravity (U) [Rel density] 1.028 Normal 1.005-1.03 [facility] Comment on above: Performed By: #### U AR #### [facility] [address] [place] [address] Urobilinogen Qn (U) 0.2 {Jo'U}/dL Normal < 2.0 [facility] Comment on above: Performed By: #### U AR #### [facility] [address] [place] [address] Urine Microscopicon 10-07-19 23 Crystals LM Nom (Urine sed) 2+ Ca. Oxalate Abnormal None Seen [facility] Comment on above: Performed By: #### T RP5 #### [facility] [address] [place] [address] Bacteria LM.HPF (Urine sed) [#/Area] Negative Normal Negative [facility] Comment on above: Performed By: #### T RP5 #### [facility] [address] [place] [address] Urine Epithelial Cells Auto 0-2 Normal 0-5 [facility] Comment on above: Performed By: #### T RP5 #### [facility] [address] [place] [address] Urine Hyaline Casts Auto 1-3 Normal 0-5 [facility] Comment on above: Performed By: #### T RP5 #### [facility] [address] [place] [address] Urine RBC Auto 10-20 Abnormal 0-5 [facility] Comment on above: Performed By: #### T RP5 #### [facility] [address] [place] [address] Urine WBC Auto 3-5 Normal 0-5 [facility] Comment on above: Performed By: #### T RP5 #### [facility] [address] [place] [address] FL GUIDED FOR SPINE INJECTon 06-15-2022 FL GUIDED FOR SPINE INJECT Final result Normal [facility] Clinical Event Note-discharg e follow upon 05-19-2022 Clinical Event Note-discharge follow up Clinical Event: Clinical Event Note: Topicdischarge follow up Details spoke with pt said he is doing a bit better, advised him about the 5 star survey Electronic Signatures: Francisca Vargas (PT SVS REP) (Signed 19-May-2022 16:45) Authored: Clinical Event Note Last Updated: 19-May-2022 16:45 by Francisca Vragas (PT SVS REP) Normal [facility] BASIC METABOLIC PANELon - Anion gap [Moles/Vol] 9 mmol/L Low 10 - 20 [facility] Comment on above: Performed By: #### B MP #### [address] [id number] Calcium [Mass/Vol] 8.4 mg/dL Low 8.6 - 10.3 [facility] Comment on above: Performed By: #### B MP #### [address] [id number] Chloride [Moles/Vol] 106 mmol/L Normal 98 - 107 [facility] Comment on above: Performed By: #### B MP #### [address] [id number] Creatinine [Mass/Vol] 1.03 mg/dL Normal 0.50 - 1.30 [facility] Comment on above: Performed By: #### B MP #### [address] [id number] GFR/1.73 sq M.predicted among non-blacks MDRD (S/P/Bld) [Vol rate/Area] 90 mL/min/{1.73_m2} Normal >90 [facility] Comment on above: Result Comment: CALC ULATIONS OF ESTIMATED GFR ARE PERFORMED USING THE 2020 CKD-EPI STUDY REFIT EQUATION WITHOUT THE RACE VARIABLE FOR THE IDMS-TRACEABLE CREATININE METHODS. https://jasn.asnjournals.org/content/early//ASN.53187 47258 Performed By: #### B MP #### [address] [id number] Glucose [Mass/Vol] 100 mg/dL High 74 - 99 [facility] Comment on above: Performed By: #### B MP #### [address] [id number] HCO3 (Bld) [Moles/Vol] 28 mmol/L Normal 21 - 32 [facility] Comment on above: Performed By: #### B MP #### [address] [id number] Potassium [Moles/Vol] 4.1 mmol/L Normal 3.5 - 5.3 [facility] Comment on above: Performed By: #### B MP #### [address] [id number] Sodium [Moles/Vol] 139 mmol/L Normal 136 - [address] [facility] Comment on above: Performed By: #### B MP #### [address] [id number] Urea nitrogen [Mass/Vol] 20 mg/dL Normal 6 - 23 [facility] Comment on above: Performed By: #### B MP #### [address] [id number] C-REACTIVE PROTEINon 023 C-REACTIVE PROTEIN 0.68 mg/dL Normal [facility] Comment on above: Result Comment: REF VALUE < 1.00 Performed By: #### C RP #### [address] [id number] CBC AND DIFFERENTIALon 05-18 % AUTOMATED IMMATURE GRAN 0.4 % Normal 0.0 - 0.9 [facility] Comment on above: Result Comment: Yary ture Granulocyte Count (IG) includes promyelocytes, myelocytes and metamyelocytes but does not include bands. Percent differential counts (%) should be interpreted in the context of the absolute cell counts (cells/L). Performed By: #### C BCDF #### [address] [id number] Basophils (Bld) [#/Vol] 0.04 10*3/uL Normal 0.00 - 0.10 [facility] Comment on above: Performed By: #### C BCDF #### [address] [id number] Basophils/100 WBC (Bld) 0.5 % Normal 0.0 - 2.0 [facility] Comment on above: Performed By: #### C BCDF #### [address] [id number] Eosinophils (Bld) [#/Vol] 0.22 10*3/uL Normal 0.00 - 0.70 [facility] Comment on above: Performed By: #### C BCDF #### [address] [id number] Eosinophils/100 WBC (Bld) 2.8 % Normal 0.0 - 6.0 [facility] Comment on above: Performed By: #### C BCDF #### [address] [id number] Erythrocyte distribution width (RBC) [Ratio] 13.0 % Normal 11.5 - 14.5 [facility] Comment on above: Performed By: #### C BCDF #### [address] [id number] Hematocrit (Bld) [Volume fraction] 43.0 % Normal 41.0 - 52.0 [facility] Comment on above: Performed By: #### C BCDF #### [address] [id number] Hemoglobin (Bld) [Mass/Vol] 14.1 g/dL Normal 13.5 - 17.5 [facility] Comment on above: Performed By: #### C BCDF #### [address] [id number] Lymphocytes (Bld) [#/Vol] 2.21 10*3/uL Normal 1.20 - 4.80 [facility] Comment on above: Performed By: #### C BCDF #### [address] [id number] Lymphocytes/100 WBC (Bld) 28.4 % Normal 13.0 - 44.0 [facility] Comment on above: Performed By: #### C BCDF #### [address] [id number] MCHC (RBC) [Mass/Vol] 32.8 g/dL Normal 32.0 - 36.0 [facility] Comment on above: Performed By: #### C BCDF ####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 RuUzXTK3WXArtSPhM5PodH6vA aQxURZyVINvQ9KuvMNfTSjkX0 86TEjkYxM2XCRriwPjF3FaZGX s zZbrDcI4r9T4Wr7dNX8gTk6yB Nx1EY88EO74mECdh2R4wKL3G9 VhPTMljsjfojluvHN8NVShJGS w oY85wMNmMWerJx7qy7U4a439J EYpBDSsaV39Qn4jaTngOGBprJ PKqD3vokwdn5vrrrknOsLbCEB w NEz3GLz7CBHfiQrfEvBcEPC1A sH2EXX9bIZunG6xmLcvrqwanI 9wOyc+LERuVEEusvN6W6KuHcs 0 QRFicCvlQH5cjDQzTKbkEs7dq WinuAeqKV1nFNVklbepKUNdbB 6nHKWuiEKaeHxfWP5oCXPvzai m i186JfLtNZR1ROEyhXQwW9Umw X6fEhIaOOYiPXYrS3HqyDOeDD bcC032AAuyGyP5UMRgbgKoI3S s OWBuhAadAxF0f6W5Sa5IPBkIB R65NZ19oJVve5O5wMO7G1QgTX YvnxsnsbmdwWL7ACAwQFTuzV4 7 xNHqAHwdPc0yn2Q1l418WEElS EFatR32Gl7gcWgtAHAygETZvI 9xhosrp3wzvzjaUbXuLTMtKXf 0 GVt1GUGooZquPoRjAAE6JoZ5T DT7pIAvfW7aqCdqncedkH2cHs c+Y4E6A2PuHhmjfPT+UX64LOF s PS60aMGybPOju9pxnAq9RuNcI THfOAP1nEkeOQoyw6DoNAHdS8 7ejXKnb4B3WUTlfDbsnHGkXjU l qLU4vX5yEOomixedn1tmgjzgX ndzz4jcuj84hC03X94vWHosZR IsKKDmQPOjNILegCccdd4rcI2 w Ii8+HNDbfQN7gTP5cQ2pZyZvT fP0XSydQ827LhHuyHLsPiynp0 fwx8fqpAn3YnWrOOFlhuVjxJv u ZKB1v6QjZi55V76mZInjYVKlF ZMyUHMxXHRhjGgtzn3nbS9lHz 8+VH2rm9pdmc60iZ36cTZ+PHR k NNG9uAmrEGqkVGAbgL7zKXljG uP2NTTlOgHtnK71wVWxAUtzSu 3plVfymYjkVE8kNXVffowmk08 0 FgJdw1jtJYNqeFAiBGmqLDD6U 70ot3W6KLGnWWFlZGJ4qVR8wW 1hbGlnbjogbGVmdDsgdmVydGl j QNkeUNktA728MZYacGvtDiTiw YQvW4rgesJAJC1oPztqyIP+PH QhRVI2eInrBPqpBRAmkM0rEXJ p E0b4NkOpPxN6FYkdA4NkqkT0D ZJgqPZaABPnhXXYnB5rtyfpr3 ttcodfRaTbUEOxTQt8DMa7KFZ s lFjkGtGgBGC0PuW8QVU9zKMzo E6yhBuxerhokF1xSxf+RklOOj wvdGQ+ACKqZGZ5eAdtHGpaNIC k eS5iWZIuA4o9KfFeAdT1HMmuS 3BxplI4FTGtrFEgIVSufQKJfK 0fgitiw5zoskjeAcTaVWNfZDr 0 QNa2VNSaqUsrMdUbMLD2IiF0A EG0lJHosX4kiTvoxaeqaN9jVf c+TVJOOjwvdGQ+NNLvVPA8kAi l AWljNDByyP0qKGAnB2a3TkBoR gR5PHtzT6HpcyT2OPFgfTLdBI YjhTKYwO4wxuuut9jgksukWuA w DQBhCNx6VFz5OMKmjPtnXbLjO YH6BxU2NTX6zLPluN5fmQjuep ucxV2oCil+WON4CBL5WD81SL9 8 R3TzQhiqmIEfcPR+PHRhYmxlI HdpZHRoPScxMDAlJyBzdHlsZT 6aMi7xKBFqGGMhnIkgnTJgVsF j b2x (more content not included)... [facility] Consent Formson 12-23-2020 Consent Forms [id number] [facility] Outside Recordson 12-23-2020 Outside Records [id number]#[id number] [facility] Urgent Care Note- Provideron 12-23-2020 Urgent [...] FOLLOW-UP Date of injury: 11/12/20 Claim #: [id number] Employer: [employer] Voice Mechanism of Injury: Altercation between self and someone resisting arrest Diagnosis: Contusion left forearm, Sprain right elbow, Strain right arm 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 On 11/[address] the habilitation worker ordered an immediate arrest. When he was [...] recorded.. Surgical history: Facet joint nerve block ([id number]) on 10/27/2020 at 45 Years. Comments: 10/27/2020 9:10 Araseli Lord BILATERAL LUMBAR MEDIAL BRANCH BLOCK T12,L1,L2,L3 Epidural steroid injection ([id number]) on 09/15/2020 at 45 Years. Comments: 09/15/2020 10:13 Araseli Lord CAUDAL EPIDURAL STEROID INJECTION Stimulator, device ([id number]) on 04/30/2014 at 38 Years. Comments: 09/22/2020 9:08 Swapna Goodwin stimulator low back placed 2015 Fusion of L4,L5,S1 fused ([id number]) on 04/30/2007 at 31 Years. Cage ([id number]). Comments: 09/22/2020 9:08 Swapna Goodwin bilateral fused [...] 132 mmHg (more content not included)... Normal [facility] ED Clinical Summaryon 2020 ED Clinical Summary [facility] ? Urgent Care [address] [place] [address] Clinical Summary PERSON INFORMATION Name: CARMELITA EASTMAN Age: 45 Years Sex: MALE : 1975 MRN: Acct#: Visit Reason: Medical screening exam; [facility] F/U RT ELBOW INJURY Arrival: 12/22/2020 17:08:10 Discharge: 12/22/2020 17:52:00 LOS: 000 00:44 Check In: 12/22/2020 17:08:10 Checkout: 12/22/2020 17:52:00 Address: [facility] [address] PCP: Misbah Donahue PROVIDER INFORMATION Provider Role [...] Address: When: Return to this practice Comments: Sunday, Jan 19 at 5 p.m. DIAGNOSIS: Abrasion of left forearm; Contusion of left forearm; Contusion of right shoulder; Sprain of right elbow; Sprain of right shoulder; Strain of right elbow and forearm Patient Understands: Yes - Patient/family/caregiver verbalizes understanding of instructions given Comment: [facility] ED Patient Summaryon 021 ED Patient Summary [facility] ? Urgent Care [address] [place] [address] PATIENT DISCHARGE INSTRUCTIONS Patient Information Name: CARMELITA EASTMAN Age: 45 Years Date of : 1975 Reason For Visit: Medical screening exam; [facility] F/U RT ELBOW INJURY Arrival Time: 12/22/2020 17:08:10 Primary Care Physician: Misbah Donahue Attending Physician: Irena Weinberg PA-C Comment: Patient Education With: Address: When: Return to this practice Comments: Jan 19 at 5 p.m. Medication Information: The exam and treatment you received today in the [facility] were for an urgent problem and are not intended as complete care. It is important for you to follow up with a doctor, nurse practitioner, or physician?s facility assistant for ongoing care. If your symptoms [...] so we can reach you if necessary. [facility] Emergency Department has provided you with a complete list of medications post discharge. Please inform your care asst/provider of your visit and for further instruction on these medications. Any specific questions regarding your chronic medications and dosages should be discussed with your primary care physician(s) and/or pharmacist. Medications That Were Updated - Follow Below Instructions [facility] [address] [address] [place], [place] [id number], [phone] Updated: acetaminophen-oxycodone (Percocet 5 mg-325 mg oral tablet) 2 tab(s) PO daily at bedtime Claim [id number] DOI 11/05/20; as needed as needed for [...] of right shoulder (S40.011A) Medical screening exam ([id number]) Sprain of right elbow (S53.401A) Sprain of [...] legal documents Reason for Visit: here for [facility] recheck, right arm still with 6/10 pain [...] Prevention S (more content not included)... Normal [facility] Urgent Care [place] 021 Urgent Care Record [facility] ? Urgent [address] [address] PATIENT DISCHARGE INSTRUCTIONS Patient Information Name: CARMELITA EASTMAN Age: 45 Years Date of : 1975 Reason For Visit: Medical screening exam; [facility] F/U RT ELBOW INJURY Arrival Time: 12/22/2020 17:08:10 Primary Care Physician: Misbah Donahue Attending Physician: Irena Weinberg PA-C Comment: Visit Diagnosis: Diagnoses This Visit Abrasion of left forearm (S50.812A) Contusion of left forearm (S50.12XA) Contusion of right shoulder (S40.011A) Medical screening exam ([id number]) Sprain of right elbow (S53.401A) Sprain of [...] and treatment you received today in the [facility] were for an urgent problem and are not intended as complete care. It is important for you to follow up with a doctor, nurse practitioner, or physician?s facility assistant for ongoing care. If your symptoms [...] so we can reach you if necessary. [facility] Urgent Care has provided you with a complete list of medications post discharge. Please inform your care asst/provider of your visit and for further instruction on these medications. Any specific questions regarding your chronic medications and dosages should be discussed with your primary care physician(s) and/or pharmacist. Medications That Were Updated - Follow Below Instructions [facility] [address] [place], [place] [id number], [phone] Updated: acetaminophen-oxycodone (Percocet 5 mg-325 mg oral tablet) 2 tab(s) PO daily at bedtime Claim [id number] DOI 11/05/20; as needed as needed for [...] for Disease Control and Prevention December 2013 [facility] Coding Summaryon 12-17-2020 Coding Summary HTMLBase 64 VdvexlbhHXv2mQm+PGhlYWQ+P J0VEMFkV48yuDLbkV0FY9iZNK 7YYIYDTBFQBR0OQB8myAX5NSy yD8QxsyXw QvbymJDdCB07LGb2MZS3wEqsF MjznU9ifGBwA4a5ZoUaWH69uM 69DXmfBMPfLcG6SrOgiqjtqLF y K2ldQuZblLZdWuj+PHRhYmxlI HdpZHRoPScxMDAlJyBzdHlsZT 5sZk5zAEWoGKOvkYvdpUOgLmZ j n0mlVDZtOGjdPQ5juTtkH5Clq KZ9KASjf3q8Bs08xOQ+PHRkIH J2aXfzHNhtv464AjRxi9iwXBJ 3 qKPtPDfjZMY0G20az0Z9XUJdB XUaSWM8qCF1jU1gxTzeqkcdF3 DhiSHhQuC6EBB0cFGvnZ1hbOo n jgpgsC1nJkc+Q55HIW7JWXIUD H3BUfe1B5GcKkerhDJ+PC90YW CqQQ33iFGzqYXiz5ojtXe5DjK w FIIcYVX6cHqaLWqig9CdSJGvP 22zxIDzv2R7XNApdLlbpTPkIp IkjBV6lS0dEAmmtcrsi8yjilq n Ahckz5ezgd88cI90H51nFZndP EQqJNS2WJRjLKMbvSpjcu3swH 9wIi8+EWble1jnf7yhfMp9FzS w ELPnduYgoCccCSV4g4LoQy61W 1IraNmsd2ZmXdg8jt69wNMri8 A4sSJ3PZjhDBFshQ3hIGaaRnV 6 QKWfWvTuwS22pATkJQnvOp7sk FospFicEZ2sFWUrwqebNDFqvL 5tAGWwjOOkmIwwZC0uNGTsrmd m e303IeYmZQN4JFFliQZrW1Ibw C2oNhXyMWRlMOWtJ7JfgGVyEG jdM372AVljQpA3HDAvvgHmW1X s BSNetWajKgX5y3Z5Su3Tw3Sbn fajGCB8LDcjLTE0DvFfTcPmTp B9Z5ItTzl1OAPgpCqtBA3iG3U h EDHiyviyhgssfGV3UOPsSQKue L92fYBoSLzdTj4gl7R3n843PD QwHBQryR66Ru2bdVsbUANjdYH U vX1pgygid0haqmfrDqEhSFDsG Ph4SOq7PQMafCogAzKqNWF7Ew R1NWL2xFKmeF4fuYyjhsmyjY1 w Oyc+H59teJ5wFET0EKP4ttnjE ASlnyIaFW15NJ76V2KpQwusiL FibGU+MOJniiIsoWolZB5hMxE j d0etf2PwZCcnD9WaPPPjUWdsM vo2XSMsZTJ7uFY3jR3nCBSwDT avt6D5bBK0K2PpdjVrfl5ta6e s XXEoMYvxO78ivMPvg6L8SZUrl DL0BJBiaIowLmGbqE96Nfn+PG LwmOuzl8JoNvjvh8apw0xvpDc 9 NgGjCLEwplUftTthQNU1e5LeF h31V88oFMpgEPQyGLFkIDEpXK WzjCwhsx4aeG2rSb7+PGNvbCB 3 xUW8iD4bGTHsXwA2IWpmK223U bIvaRPeGriby5bhv0kiuGf8Nh EkPWTjvdIbxTxjGZY6l6VdSq7 8 U81qVNshBGZwSBVfIZSuPHDxn Amsar7plL2zTx9+KX2tn6tatz 02oF65iRI+OJBnBDL4gOkcDLb w JTPwdH9rTGqkXkP7UZZnQyLdv J21mSGgEVazKi6tcJritZunFA 1xCHIetoosw710QzNyh5arPDX w nMWfEYfmLFZ5E58zu0B6CNCcM IPeGCO9aSW9dV1gjRrtwrfndN OmaYepcqYgsFluDSrhQRneD37 6 IHRvcDsnPlBhdGllbnQgTmFtZ Nk2I4HuCht5WHQleVcvBA6tkW WzVWopSp2zmVxbqNhdOV8zINZ p verlp647KtIsr1uvQMPlmWYdL PieUCN6G92ex8U1OXEsIEAiCF N8wCG1aX6ysUohjgegpJJjmHc g jeIedOsaTPesEWhtS211EOPch WnhWlZpcyTmOEQzgFC7UV75IY 63pXYvl3P0oKW2Q2UyGYTjzwc t cukzbXF7MHAjFIJqbT12Hq4pp UllXg0iXZTdSLP2BXFmlDOlQ8 AydM2gGbMsMLNaOGOgE8IvrRB t ORivM293KQlbZqG7KZRizlGzA 0GsZDNaeVzqHaZ8c2S2Pt2TG7 D6PX03AR87yCCgg0V8gLP1M3B h KNDgstqqlwcoqLN6AXHcDJRmi C91Qy9kvTpwAk4uVIMpTVD1AC LraNRdW9OzoO0sIwLiUBVnEMM w E2SsxEAxJAoiQ595IEteNoR5E TPfvxTkJ6JuEATqvFjnAeN5r8 L8Yk0CTVb0MY31NX13hZUdo9V 5 nNF0C1KhOESglwvdejthaSJ2Y QCcPIJfmM19Bc7hfTtjYj8cKG NdIAZ4FTBumMNzS4HyjR6kCjP j JRRfSTEkD7EglQDbFGcpW213B KlqUzY8FMXgtkOdB6VpIAMsvS wkRwN1f5P7Bl5TNHDdMS05KEO 5 xFR1DE66AC47R3DpIduvdNZoa +PHRhYmxlIHdpZHRoPScxMD TuYtRzlHbqZS3aGg2zTTMrSYV v sKczrVMwJgOxx3mxBQDvICdvD O5sfVlpI8OjhYY0OFLle6n1Gw 72U78gO0JaiUP+HXOjdVP5cPK 0 wK1mQtDiKmE1SUmjO996EtQee ATaSmkxn8xqw7uppNi1LwY3NO YsasVgeQykOKM1d5SqKp22T03 s IHdpZHRoPSIxNSUiIHZhbGlnb e6svO5lWr1+BCJqqTQ1nYH6rA 8nCpZjAbX4YOcuK170JfNlxBL v Bbolx0ypl7lonFy5ZgMsWZGjy uCunOfwEWK2g7XhIs34I6BhnQ whv7LmVuy9zl13uUAfj3I6kJN 9 E7TwLJZkrksctUVvfCjgXL6zC XDcsyrlBMXyaM0rQTKsX9h4Is KnIuH8PRibR4JsfoT8JCIglYF g XHxuNIN8J63dp0A2VHDpOGRcR LX0jND3mP6inTgwfhlwwZAgaM zjadMfvYvxWImwEHhsF540NOG v hYqxLBXabS3lOUWylZGmkJeeA N5rMPFjqgcrFaiUAFDNRJSEBW RDHGxvFPtLXT94T7NkLlh6MNY z yIblLG0xeFTyDQhgHz6uiGfov GhwLF7eVMWzsjsoQLSvuE2sMQ RjgURtiNzqMV7nFSAguvtma07 0 TpLzSUZ5JUToxHPbL4LsaC4vQ uDrNVPxUBTtM5PuuQZnAGmrB9 43OQouYiK9NYYkexEsK4FjDJV s gMcvPeR0y9P1Xq3fHL6sTi1cS Ph7VI26CB39sPWts4V2sEZ0F9 GnVVBwstnimeevyCW0PPVjZGJ w gJ30nGBuAHpbFo8jc0H5p050Q FYrGLQjlU33Im2yuWbjZKUtxD ZNoE3mcxauk4bxjhbpFlAgJFD w EYs7MHt7WLUjsDipQyTxNOY2C kZ0IIW1vRJruX2ksXcpgbrgwF 9wOyc+OEKcXSCgfoN4J6TiIjq 0 PQCcpVohQU7pxZMsPEgcUm4si JzajKkrGX9fNCZgarxcQNZbkG 5fKTBdcRWcuOhjYW5oWBUqqhv m d900KyArMCZ0GPDvyAKdH8Ulv M0kLrJqGZRvZGYoF4KovAPjCP qzR279FQjxHiA3ZZMsamGpT6G s IHUyiCdjYiX6c4I0Wd7PSWrGC J11BT31zMGds6J0wCH5K3WiUE GkvwicahmmdZA0SXWpPLAfhC7 7 iDAsYSnaXw4wj3A7p956PSXcR AOdhZ51Fi4weDxvIOBvzRKJyH 6jupcsa8tsmbyzYwSdBBWuUEu 0 YUe7HRLzsZeeWeIlKYV6TzR5Z JI8wEYojB6jsEfszxzitU7dQd c+I2I9W8LzZbhdzOL+XP00AMM s HQ52mTNncSHpm2hstFr6HnZlV JPtPAC2jDikRUwyt4PlUILcL8 6dpSFwi4S1HWIxfTjclJVmDfA l jDG6dA8ePKjqhqhpk7tzerjhM xtjv4vgkt76uB42Y76iOBnyEU XaJUJqKOKnHYBmfIbmup8slJ7 w Ii8+WIDaxUE8lQC6lT4fYsOwD vJ0PQqaM898QmOuyTGkDvufv7 ncb9gmcWj6TiRwHKPhbjUbsPg u FPR7q9BbUv86L32cYOkaODVsP KEvEXKdKWLhnSomin5daE7mGk 8+XS6cu9mznc62zL14zEK+PHR k VQF9kZhaUNknDLXkrR2yGMdeR nJ0NNUtHdUqdQ70hBBjSVbgQz 6ltGpaxWduEQ4hQIZuyorhv98 0 GlGcs9cwGHIouLDhPNdwLQY2G 35bd7A5LXZlWRGnMUY9pNE2cO 1hbGlnbjogbGVmdDsgdmVydGl j WEzpHFqeN917KBVnpYpsKkEon ZTcN8ubvgWJJV0uXxxbhRI+PH VkNEW5gWqhLHvoMQNlqQ5vLTU p J2r8TsQtPaY1SJviX1CbvcC7W DCqdCHfFAPiwYWPdK2orhlyf1 vikdhgNwNlQWLcQCh9LHb0MBG s wMrwUiDxNEI5GsA5HJE4vCQza Z9qaQqlnzzzhC4oLol+RklOOj wvdGQ+HWCuPMT4jPqbVXdbOHB k gE2sADGxG6o0GjOuQeG8SZmqH 4TbprE0WQGicCSnTSKrhRZJhG 4xkfzqt9dzzjbaNqEsLTNwJLo 0 EXa6GHMidSidHjJfRWG0FpQ3V PO3cMPqlZ7ukJasqjbzyY6fSy c+TVJOOjwvdGQ+JVVgIJH5gFa l VJewMEVblR3xWLXwQ9q2JxRgU sL0MFjuA5CteaW6TAHeuXQgPY RvmIPWiT2mmnyoo1ohpxreIzN w DWPiIIu7EBs7PXCkqWwzYbHqU RH4KcE6VHD5dNOvgS8jgTaivf mrbR9lKbo+GFK5UXC6EM90OH7 8 W8FsRyrrxBRekAB+PHRhYmxlI HdpZHRoPScxMDAlJyBzdHlsZT 3kAm8yYBQqXTTajBaznVYsFaR j b2x (more content not included)... [facility] Billing Authorizationson Billing Authorizations [id number][facility]2020 Provider Orders [id number][facility] [id number][facility] [place] 12-09-2020 Provider Orders [id number][facility] Recordson 12-08-2020 Outside Records [id number]#[facility] 2020 ED Clinical Summary [facility] ? Urgent Care [address] [place] [id number] Clinical Summary PERSON INFORMATION Name: CARMELITA EASTMAN Age: 45 Years Sex: MALE : 1975 MRN: Acct#: Visit Reason: Medical screening exam; [facility] F/U- RT ELBOW INJURY Arrival: 12/07/2020 16:49:00 Discharge: 12/07/2020 18:11:00 LOS: 000 01:22 Check In: 12/07/2020 16:49:00 Checkout: 12/07/2020 18:11:00 Address: [place] [address] PCP: Misbah Donahue PROVIDER INFORMATION Provider Role [...] verbalizes understanding of instructions given Comment: Normal [facility] ED Patient Summaryon 021 ED Patient Summary [facility] ? Urgent Care [address] [place], [place] [id number] PATIENT DISCHARGE INSTRUCTIONS Patient Information Name: CARMELITA EASTMAN Age: 45 Years Date of : 1975 Reason For Visit: Medical screening exam; [facility] F/U- RT ELBOW INJURY Arrival Time: 12/07/2020 16:49:00 Primary Care Physician: Misbah Donahue Attending Physician: Irena Weinberg PA-C Comment: Patient Education With: Address: When: Return to this practice Comments: SunDecember 22 at 5 p.m. Medication Information: The exam and treatment you received today in the [facility] were for an urgent problem and are not intended as complete care. It is important for you to follow up with a doctor, nurse practitioner, or physician?s facility assistant for ongoing care. If your symptoms [...] so we can reach you if necessary. [facility] Emergency Department has provided you with a complete list of medications post discharge. Please inform your care asst/provider of your visit and for further instruction on these medications. Any specific questions regarding your chronic medications and dosages should be discussed with your primary care physician(s) and/or pharmacist. New Medications [facility], [address] [place], [place] [id number], [phone] acetaminophen-hydrocodone ([place] 5 mg-325 mg oral tablet) 1 tab(s) Oral 3 times a day as needed for pain for 7 Days. Claim [id number] DOI 11/05/20. Refills: 0. Medications to Continue [...] of left forearm (S50.12XA) Medical screening exam ([id number]) Sprain of right elbow (S53.401A) Strain of [...] Reason for Visit: Patient arrives to for [facility] follow up. Allergies: Substance Reaction Symptoms Type [...] for Disease Control and Prevention December 2013 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 On 11/[address] the habilitation worker ordered an immediate arrest. When he was [...] pain and weakness. He failed Prednisone. OT eval suggested a shoulder problem as well and [...] recorded.. Surgical history: Facet joint nerve block ([id number]) on 10/27/2020 at 45 Years. Comments: 10/27/2020 9:10 Araseli Lord BILATERAL LUMBAR MEDIAL BRANCH BLOCK T12,L1,L2,L3 Epidural steroid injection ([id number]) on 09/15/2020 at 45 Years. Comments: 09/15/2020 10:13 Araseli Lord CAUDAL EPIDURAL STEROID INJECTION Stimulator, device ([id number]) on 04/30/2014 at 38 Years. Comments: 09/22/2020 9:08 Swapna Goodwin stimulator low back placed 2015 Fusion of L4,L5,S1 fused ([id number]) on 04/30/2007 at 31 Years. Cage ([id number]). Comments: 09/22/2020 9:08 Swapna Goodwin bilateral fused [...] toxic, NAD. (more content not included)... Normal [facility] Urgent Care Recordon 021 Urgent Care Record [facility] ? Urgent Care [address] [id number] PATIENT DISCHARGE INSTRUCTIONS Patient Information Name: CARMELITA EASTMAN Age: 45 Years Date of : 1975 Reason For Visit: Medical screening exam; [facility] F/U- RT ELBOW INJURY Arrival Time: 12/07/2020 16:49:00 Primary Care Physician: Misbah Donahue Attending Physician: Irena Weinberg PA-C Comment: Visit Diagnosis: Diagnoses This Visit Abrasion of left forearm (S50.812A) Contusion of left forearm (S50.12XA) Medical screening exam ([id number]) Sprain of right elbow (S53.401A) Strain of [...] and treatment you received today in the [facility] were for an urgent problem and are not intended as complete care. It is important for you to follow up with a doctor, nurse practitioner, or physician?s facility assistant for ongoing care. If your symptoms [...] so we can reach you if necessary. [facility] has provided you with a complete list of medications post discharge. Please inform your care asst/provider of your visit and for further instruction on these medications. Any specific questions regarding your chronic medications and dosages should be discussed with your primary care physician(s) and/or pharmacist. New Medications [facility], [address], [place] [id number], [phone] acetaminophen-hydrocodone ([place] 5 mg-325 mg oral tablet) 1 tab(s) Oral 3 times a day as needed for pain for 7 Days. Claim [id number] DOI 11/05/20. Refills: 0. Medications to Continue [...] for Disease Control and Prevention December 2013 [facility] Coding Summaryon 12-06-2020 Coding Summary HTMLBase 64 EjyjjppnCAh9ySp+PGhlYWQ+P Q1TFZXtG70znCDkjJ8YF9nATV 3UVDBCMHZIUZ8SMV3kpJF7ETm wL0MstmTl MugbpSHxMH77DEh5EUG0fHyaP MbuiX2wsCWvK9i5RqMdAL05eJ 36FLlpJGHaQtG3HoFsevnolQE y Y6fdIuTeuVGzTpk+PHRhYmxlI HdpZHRoPScxMDAlJyBzdHlsZT 3eRb9pJVNdHPBucLcipVFpMjJ j l1ruSZLoHQoeTT1qlEzoE0Mxk AN3GUTwt5f4Yr60jEG+PHRkIH A6pQjjLOsrt427UhVvq2fgQHZ 3 nBZgEWwgMEG1Z24uw2Y1FHZcH WVgPRM4hHW5fR8diBnblkvgQ7 CkrBCjZnQ6NVK2rNZxpY5bhRb n psqmvX8xPeo+W54MLF9FOSKGQ T6VZxc9I7CzFtvlwRE+PC90YW ZqAA84kYOwwWJbn8vgnHm1HiV w KITgNPN1uFnjRYltq5KeKXTnW 79oxUWek9P8JPBxsTmnfPUuBf XunQL7uJ5dRJimdaeqa2lwamd n Ijzup2gtdw40zI18O30xQDfeQ ZBaGFE6JWEuDMAooZkjmm7ibM 9wIi8+MVicq0cbp7grqEp0WlF w QYLyfnZkbLfuNTD3t1GiQw97Y 6FszNenz5CyRqi3iw02lJIyb3 N0gBD9TJzcMEPsjV4gSPssLxJ 6 PQXbUyWpuA90lQQuYHlsBc1ak YitpJvmAX9yJLUneppkZEZeqY 2yQUBllCCtcTmrJX9iCIUfvav m i867FfGaRTR5DBJgmWBnL7Wsp F5qZlEsBNDiRBImI1PbsRBrLZ xtV872JFxpXsT9LJLjowAqI0Q s CKNbwTgoOuL3m2P0Mj0Kh5Bjp mbaNMF9CYtaWUR2RnO0ZzUoWm O7N6YiSgz4TLThpNicOE2uE9T h QEKxqxhpzzlafZX6QZLoPNJaz L34dVTuAZuyLm9to9I2p689SZ CeGBWauP70Uv1btQvbYUCnvXW U eH5hqouym6ajppnvTrJlQGRuD Sx8HAx8RKRzsGozJzYyXNR3Vc S0CGH4gYCeoU3oiDqxrcgofM9 w Oyc+S04goE6oDVT1OJJ7tfvdP QSrnfQtBV63DL92X2DwVycdcB FibGU+MAIxojItkPeeRZ7sKyG j d1ejg5KdAVipN6OlXKXfRXayI bb3LIDyRRO1oQB1mK1xKSKdIO lxh8E7nXO9J4IvmfTruf8yi7b s SHBeAEmqA38vwZUgg5G7XEEjo GH5BPJsuFttXcDuaN52Tca+PG YpnKeos0BuGxiid8wie4prxEp 9 MdChPPWhwkRrxSuaDNN6g7YeE q76B35wXXnzXZJvJVFuUMTnYW BidZgyfi0niL4kLg6+PGNvbCB 3 bWV4pT8kPZFwOyU5SBtsV979N gSvzTMwBmtex4uce6dqhFs1Ba SdOINtegFxoGahRPI3u4JzIo7 8 R02wWBgoEBItKIQvDSLdAEWjj Wuruz6ccT5yLn6+ID4wj1wnno 85hT52gXV+HFXmRDR0mKybRHa w MIAphO1dNLjqGdA7SQYtImBcy E55pEOuKQpmMr6neSnhoMifJS 9lCMOkljsrq251YqSlr8yiPMZ w zJKkZSuaRSK9E62rl0X2LAFhZ OYjMTY9jLD4gI5sbWrhasxiyZ OacLkyvvZqkQlsVXivQPvxO29 6 IHRvcDsnPlBhdGllbnQgTmFtZ An4Y3NoRzo9GUUhpVkfDC2ciS OqHJccDr7rpTodiIjyVZ9zQZB p qmjqm929OmEnh9rgNKYjxNNvC XynFFD5I48kc1V2QAQoJJNdIN O9bDV0jB4wfYubnhdccSYiiCk g xhUmdRwpVIenCQhyD962YVAqt YrvDqBtxkGsRLOjbZG4AF33JA 38kNPka7L7jXV3B8PbZSQicxl t plevzKW4LCZbTATnuZ81Bs1vc InvUp3fIVSdIJS6EZKbgIHjP0 VbaZ6bXlTjVCRdGECjX4NxuEM t XOcvR895KGdaYrZ6BRWbnqFeI 6SfROMijTnhFzW7f3M4Zh7JV0 L4ZZ17CS67iKFfn4L3mKD9E0Q h ASVwxlqynhrhjEE0JIZvDNItb H55Sf7goAxpEg5sVVEpDCF4AD OmoKBsN2LmaG2hRnBrPGHaINE w R2MxkAZgBTsyQ638AKftYoK1H XLvwmLvF4DwBIFxiOauDsB4w4 T9Zj7NSIp8ZK99VT60dLWub2M 5 dAJ7V4SeFXVpxdkbxbplaIT0I PDlRVVsgG40Qs1sbDemYf9fZV IrVOG7ECBhlDQfX2LezD4uTpP j XKVuQAYvZ4SjkXRjVDxoP506G XejOtC6YUXlnhAzO1HpSZBnqS vsUsF8s5L4Vt1YAIHvIX13XWE 5 xUV9WV30CJ89X0MsZvximAJjc +PHRhYmxlIHdpZHRoPScxMD WfCxEutBxcZA7yWs1cEVDrUVD v jPfttALcDpWpw2tuRSUfQEynA G7anAfvN2WgjYY1BZSep6t1Ap 71X81bR2KoeXR+MPQxdJW8qDC 0 rC3eGcMxTyI7RLosR557JkMuy SDoQhqko6wah1kibMq7VlW3VS WhvzKibFbqSUA7e5TxZl33M24 s IHdpZHRoPSIxNSUiIHZhbGlnb i6yyH4zOd7+TRXlkZT7hRC7eD 2aZnDdBlR2KYfrV036CzWuoYQ v Nyqvl7yjw0rbwKd1WdMvYICkt sJtlLoyRRT0g5XqDm25Q2PjoK tjw6UmPij3cy94dCLnz4F6aRD 9 D8MjMALoaqqxfIZbiOpgDH1gW AWorehpVGZprW8lPRAkH3z7Sz NoStP9UDcoB8WyefW7MWWggAB g BIjzENC3M03ri9W1VBMzJCYwD BB6qPS1lF1taRpjdnacbPAgwC stxjPlbXydRLavQCykT945YQN v eEfkVROtqI9lCZGlcIMpxQhrK M8tVGLcnqboNtuPTRIIEJJLGU JWWDwtWDnQFM40D0BkNxc2OPL z pAagST5ueCWzDTdcOy2ngBbtg GvxHW5bGYHmowsjHHJykY7rLH GyvMMfuEcwBC4xDPHzziiiw06 0 PiOvSQR5NFSzfWRdT9FrjX1vV tXiBLBqTDKhY1UiaHDrYNiyF4 73VVquZoU4CJXtywZgB3NzPHJ s jPyhEuF6s5R0Mu9sZJ3cKp1uL Dt5OZ12PU09zEJkv3M8gMZ4P7 VoSDFziwawlakqeZI6OMVsXFN w eZ73tBVdSHyaAj7qt0R3g823K ASfQSLrvB18Gj9lnKogPBQtdP LTkB2irmknl2yxzrybUpWjQVR w MAj7QKq9ZMScbDbuLiAbCSL5T vZ8VFR1sWPvqJ3dtMqvlseddN 9wOyc+URKmNZWztiD7E7KwCoz 0 HAAqnLhfGR3mfIIzTKmmUw2xx AuisNzqZH0wLNWdqdqpLEBpfK 5cHMKdkDVvoPugKR0nCSNzirv m b438NuJhNUD7RSSarKSdN8Rrz Q9jObMmQLTzFSMdT3TxhDTkKF soF781LRslHqI5WFHuiwCkN6P s YUWnzFxhQzT7t3H2Tv6EXLmIQ G43OE76lCEde6H3gYJ7O9MtJZ KnpiwbvagnjKC4NHDkDBIqcU5 7 cFJcNYawKi1zo0F1b012AGKxB KIvsQ85Zl6pgMvgEYFrkKHOxV 0ilyaan3bzelwaQsBzOEHiTZk 0 LSj4JXFbvLqxPvGxMUC4NrY0R HQ2gUXtyQ5kkQerthcilY7lJz c+OySxiCXayJ3kFI13aDYbpWx l mkU2Z0VwOviohZV+ZI99ZZOkE O51pUXgtSKfh4vdqQw5QrRnGE FvFTO8eVhxEBunt1ThGRTfT27 s kGMnu7G0JVOzqOaxvMFvZbPmh SL9wF2vRJcjclzgw8fgvvieGn ykw2emtr65xQ14D33wJErzGUN o WHKoJAXbJFBajOubti4ifY3tJ i8+RTUeyYE3kUA1kN1lPgJiCy Q3FDtnP855OwRknEIxPxnob6m g o7rulTh9YaEbRCHpowIyzOpuW UM0h3SjOq67M63eGUgqLDXrLH RqEVPkFGXaeBzeol2awR9zQt9 + SN9or2fhyk60rD53iWS+PHRkI KX2aIibEHbmXRVroA6lTDfsIi M8ULGxVoRivV24sRBnBJsyJj7 y uTmvyUqdYT8sCYZmkvgqs612O fTge9lmHZMewXHoJRvnPWE5R0 6uu1G1RNBiDGAzPCC3rOT2tD5 h bGlnbjogbGVmdDsgdmVydGljY KouTFkiM382NPNgaMymHzGrcY YlX3rjhiJUED9uRoewpOK+PHR k XLU6rZqgWXgkRHMkcX1lVXQzI 2z5UuNqTfM8BEclN3JkpsN0RK WssZHwKDZwtNPGjN8fzbwfc6s v uudcGpHxIPNbZTp1CIt5OZFow NnxPtZlABW5GbV8SAN6uPIpdF 3kyQcniygtnK5uIgk+RklOOjw v dGQ+PVOsZPO1fVwdZQvfCSWhz M6tFWPgJ6n9SaNsKcB4HMpgQ7 XxeoV3BOTnxKAaIIYflGLDtV2 l vzdjj1eshuunCgDaDCKpFZq5K Hm0LHLedZjrOaOkAWT5EtW1AS V6yPNsdK2xiDomfausmV7dWnz + TVJOOjwvdGQ+KKWbUGL9pTbcP GooBULwsJ4xQVTdF0h1FlKtLg I7PTopA6DpwsO0NTOdkJZjJWQ w fPFBeT0ihgvae6nymwgmOlApW JKfSEw1SRx8UKSenWvnMpXbCE C9CkP8TZP1yHZbhG8moTyggpp g lL6cIhf+YNN8ELN3XO64XC01J 3RyPjwvdGFibGU+PHRhYmxlIH dpZHRoPScxMDAlJyBzdHlsZT0 n Ym9 (more content not included)... [facility] Coding Summaryon 11-30-2020 Coding Summary HTMLBase 64 NvabnmmoRAq1uIc+PGhlYWQ+P Y5HWGDhX17liCSxcQ1TD3bZEH 4RPCNMPKRDLU8JLT0cuDZ4EAz wQ5QvouTb GlzicVXfUE98PEk0ECO0dNfiK IxzrX3qiVVdO7g7ZkBkGQ63dG 14KJzgBVPoGxZ1InKtewhorCA y G2shPtYjxMFgLyu+PHRhYmxlI HdpZHRoPScxMDAlJyBzdHlsZT 5iUq8jBDAfTIWniGepjDHnJoY j j1jfGWJyWVpyPT3aaTnbB1Out HZ6HBPsp7d0Vt31ySA+PHRkIH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 c+C9V0G1CqKdiuyOJ+QT60RSW s NO71pLEzzLXju8pjrGi8PmKnZ NLcPUF9tQevQFanh2EkPBFwK0 8twCVct1S1HHWoaRnpsPXjPvV l uCT4nL3dRKkkojyce5hprzplD ungp8fomd79xK51O34gHBfhMG EzIGTvPWQzVJIxnWispn5jxO8 w Ii8+VAAmxTJ3iOZ9mK2qWgZdT qD2SEjuJ570EaXygAVdMshbn4 sfc9vbnTs9JeWuGXVbpyZmhZh u PVG7x5PkJc36B70hGAxaOZUrE BTxPZLxZSKfqMybmp0heH8hJz 8+MT3cp7kegf35cL27lIX+PHR k MGH0vVphDOhqVINdeJ9mYLbkO vH8XVKsGcNkeA27qKUvFJhoCc 2caEgsiIfwWR9hSATkbwwyz49 0 PsZpw0moNGIihKYwNDqgELR6D 84tc5S8KUHfWOThLOK5cTW9bI 1hbGlnbjogbGVmdDsgdmVydGl j FTigFKzaA668GAPvlMjvHjUoq KLyS9uvjjPJPO0oLdulvQQ+PH UpNWF0dSzrPMolWZVtvK5aMKR p P4k6GlVaGvX6RTamH8KaucJ8H FXjjATsHHUeyWSTyF0sjfetg3 sufrspHtDuZKOmBJe7DUk6SVI s sUpoAaCkITO4WzB9JHW9tUQob U6xeCmqezuonG5cVgq+RklOOj wvdGQ+HCKpEXH0lIbkHJicDDQ k uI1bXOFhP3e0HbIlRzX7VQjpU 9GdlzZ7QWXksTTrYNNanMJEkD 6bilplg7zemeuyGpDhRRQcWAw 0 MZf1SHMfjGwiRwOcCUI1UzP1T YA9tONtvG2euMjggbkkdV6mNc c+TVJOOjwvdGQ+NJNpVTG1aNr l FZybMHCohR3gVRRxH8q4FwJqU iJ1LBgqV8QccnX6PYXzaBIqWD ZscYYUfU0ycyeia9xhbtolThM w EXBeWWt4HUi8CFZioDqdHsPzH IQ8MmQ6TLX1zUUqcR4tkCzfhg hshT7zLpv+YJS0IAB5SB60VA4 8 X1VmLmmjkXFyxJP+PHRhYmxlI HdpZHRoPScxMDAlJyBzdHlsZT 1bMw7hBIIzVAZwiKwluEBjNcM j b2x (more content not included)... [facility] Consent Formson 09-24-2020 Consent Forms [id number]#[email or web address] [facility] Progress Note - Provideron 0 09-23-2020 Progress Note - Provider [id number]#1.00OTGTI [facility] Coding Summaryon 09-16-2020 Coding Summary HTMLBase 64 AzqazpgxBJj3iCb+PGhlYWQ+P G8FWFChN67kwSQpxB3SX6oYYD 1FAUFXELEOQR0PCI5fxOC5XCg yF8RuwxZb MwknsKKlWN06QRl1QUB5iYxyU MnfhR7bqATpP1m3SbEzZO27qX 39NFxyJGHhUuA3ScRsbezjxLG y S9buWlCqcUVkFwz+PHRhYmxlI HdpZHRoPScxMDAlJyBzdHlsZT 8uAc4tUOJhUFCikMcklIGbMxR j x8jiHFVlUEzkWS9vyFadZ6Svt ME3UOFtg5v6To35cYN+PHRkIH I5gDbsGKmld204NnHld3dsPMN 3 pCVxVZgiQVA5O76zi4I0CRAvJ SYfREZ0pYP6kD6ycEftswslV3 LywBDqLcM6XST4nNYwkJ9qsZu n zrmvjO4tFoa+J18MOQ3DUSSTS F3HDat8J0CsQcbieIP+PC90YW ZsHO42bYLrzVQhe5myhFg0LbL w JUXjMDX6uRydAHjqz5EtXOBeU 57lsXUyo0J6SRBmbPsnxJArFq ZxlSP4rF8gPXvixagde9ymlmo n Jeuvg8jmtx16kH29M88zVCbiX PQjOHW6YKHsVICznHfjxu8lgQ 9wIi8+QYelf0hcz9rrpCy2HjK w NVSudbIvnFdhCAN0l8EtOd68H 8MrvYnqp4JvDem9nk41jRDfr1 M5oMI9KZctCVOnuR1yWOasWiF 6 ULVoPxCubZ29rEPrCOiiRa5dh BrwnMtdZD9uCGGmzbdhQWRylV 5mPFXdaLQceYukWA9rOMXdhur m m287EmClVFT3ASLgnCWwH7Vaz C8nNfOwVKOvCOHgS6HjmGQpMI muA237AJmjElA9IWEuluMnB2T s DBKbyQyyKhI5b6G6Yq5Gf2Nhs wcdZVC7HImnXHA7PyPwGpJhFj X2U3SlWhz7TZLmiViyLS8bX7G h JCAuypiezkftpYF1NCGmBTWfv M12mAFuNWaaEb9az1Y9d280TU HcGRJkuJ38Im0xmIwnJWOleCF U vO2uycofi6kdiyupQzRlCNVpK Cl8YPt2TBPzjKiaZzHkDZI9Kl G0WMB5mWRwaR8tbXkdhtlgeR5 w Oyc+N48chH1zIWI9QBO3wlzsY JCqghQfFN97NQ93R7PkSztgrH FibGU+TQCyqyYqnWdpVY2hUhC j h8tos8OxHTvdQ5BxKIEhCAdjV xq5UDWjLAT5mDO1cO1cNDIoBR hpg3Y1yHO2M1OtncFqdz9oy2n s KSNbBEojI71miGNbb8I7SZBoa FM3BJGdkTgdDdIebD77Xtp+PG QwrYkrl0PcNufav5jvv6hnjWe 9 AqQyHAFqxkHrgAanCRX6j1VvP m02J01aLPbtWOBbKZDaYBTsED MrbRqisr1htR3uEy7+PGNvbCB 3 vMV8bV6cYPQaLiQ0WLupL782A wOktEKfJuiky2vau0zxnAn5Sy JwQZPxjmEmyLjiOMI3d0DoMy5 8 T76xOHjnLSUpVCYyVTFrTFSrk Pehfi1lqY4iLj9+NT1sm9akce 96hU27vMK+CAMiCXL8cSryWGy w KWLvwA8iLFqsPpT5MYTdTkRtm I40cAYuVNzyAb1jvGusxRegWZ 3jRWNzjkgoa182FkJvz8maVFH w cGEzVXevILH2W08mi8V9NMQoF DMoBZO0dKJ0tY9qpNpovlshhP FacWlfkyRxqBunMDkhIYbyH50 6 IHRvcDsnPlBhdGllbnQgTmFtZ Gg6U0XlNfb2CZRylOdpBL6lcW NwSIazRu5asFhhbYvuOG3zZBH p tewxq375NfOxa6xgJECpfTBiF CsdFFP1N26yf5Q5HULjOHIiWX U9xVN6aT1dmFuzhbzypSGslKr g iyEuqNjmCDwxOLmzW620DBHga ZxrCdVgmhPkSETzzXL5VC88BC 01hGXko6S3qXQ2G2ZaBZApnam t uwcrsID6BIXyUCWrnU50Mn8wr YwqAn9nZRUwJCG1XSSieCDaA8 EiqC9cZnIbOEFhJCVqG7IddCZ t JWlkK939CYmzMqF2LWDdksNlW 1NvKGYjiSnuHcD4u2P8Ot9HV2 R2EU12GH25zQNlc7Y3pRC4V3E h RCUgipvzjwjxbFE1XJInKFXhe A85Oa3laOrnTj6yOYPpMQZ0GA EdeKAdU5RvtI3aHjCrRHOnSBM w C9OcuWFgEGprF107LYxmCsI3U FOlowUqR1YjTZVnlOykKrU4t5 P5Wp6RYSj5IE89UN23fSUlq4Z 5 cKE5B5AuNOTvgbwdmydpyJM7C TCmNZVdcK15Rx2btGbvQo9iQH EbGFS6CXSyjMDoB4GvxN8lBqC j MBAyYGZkY3QuaJKaXGhuM118T SlrBjK4PSVhelHvK0JzQBZxrQ zkKjN3g8M5Pb6JUNBpNJ28QJZ 5 rXV3JR18EL01J3AmAirgdJVpc +PHRhYmxlIHdpZHRoPScxMD GwIxGogYpbZQ1iYg0gQZXzKFM v wArjoTVjDmRfn1eyWDYeNJtiO Y5qyKwdC2NggRK9XWJow2l3Ga 50B15kP6HbgWA+ZLSpqIM2zUY 0 bR0nPtSvUzX4NTsxR976JaUvv BGmPfvoe3psl2rfjFh7FhZ8NG LjwsGinNakMTW6r3HrBd64S84 s IHdpZHRoPSIxNSUiIHZhbGlnb l5kdC0bFu8+USNtpVH2rKM3dN 1vOaYgTwA4IIurB322AmUftPZ v Sksml6gkb0hfjFs1NlCyCPAnf qJnySyhQQX6h0UqHj06Y7LzcC pes5JrXas9ox97lTXjn6U4eLP 9 R4EdSHPnxiftvGHaoDjbAE2jB IRqslktCWVkzW5oAFBeK2c1Wh FhFcV0ZQdwV6JaaiZ4TLCyhZT g KNxzUWD9J26gj8Y1QBKkSQMaM GA3vRE8mN2tuOjugkoyoUXmzK hhwdEhuMfyGEtgMYrnW080IKY v mGavPYLkcL5pHWLjmHUymBejL X1nMORvdgrkGfuYYFEXQDWJBW TGUQuaWZrEUK90Y6EaYrw5SDE z mHvjUA3zaCUpWDflBg3kwXsnq SbrOD1dXPPdwnifZKSwgB7oMU DzvULitWlkBE6tNYGweffxr40 0 VvBzKLR8OVConQQqJ4TprK7tS vAyQXZbMDUlF5KrxYLwFKxeS6 10NMggLuZ3VBXughFvA2LtEBH s lOxpMxP0c6T8Bh8wSJ5uMp6rU Qd8VS26YI81nMJnr8Z1qRQ6R7 EtQPVrrtfvoqjnsZM7KPXdPGZ w rG80xDCtMRybKe9ig0X6s316M GNzDZVqbZ62Aq6znTbsZTQgtT FDaL5qsjfcd5zqdfgmWvSxLPS w CTn2ZOu4UFAfyCibOyTrGTM8K gN2XLB5wJCybW9isOcifwvldH 9wOyc+CRZvRAXtsiE7W2HxXuo 0 TPDcsPfeJJ8cnWRgMMitYm3lc GeetHcnWU9iTCUfvgwrWZCbfG 5pRWWyxTIvhQweAC9jRAPfjvj m x172VnXtACL6MAWatHKxI6Emo A5qLdMpYCYjCZRcB7VbaBFuOL pmN322SYpeMzN0FNQzvlXfJ4M s GIWabTdiWtA9b3A3Kg5QBHsXE S23VF07bJNxt6C7xTE3K5CpUA AffrpgphpgsOF2EDTyEERsiY4 7 eLYfRPysDs3ob6O9g664KLWzD CZoeW44Wl0jePtkAIBmhIXTsF 5jqtplc9glaoyrPbCxIBDsOLh 0 KDu8BZBtbSmuRnMkGKN2JqZ7Q QM9vNEfwC7ngVnkdqpnuW6cRm c+TZQ5YXR1fqwpmsi6J1YgDsk v dHI+TL00HOBoXH11oONydIImq 8yvzFg8SsMmBBOrOXM6iYswKO pta9CmKGQsR11hpGWrx0P1XLM v dEahjQWcUhFbyJZ7cC9tXSvxd dcoa9nrcrfjXglmp5uffl63tD 78G99bWHykSWZuPIEtLMPjZEH h bFhgvt7nxZ1bTy3+ZMItoWP8m HD8mI6zHeIzJpI3RGdfB408Os QlmDQtZgzov3rzz9kktHg6RrQ w JYQsqlOujUlxCVX2h0QzIe68U 29sIHdpZHRoPSIyMCUiIHZhbG ubsu4vrG0aKc6+CU0kg4xwaj5 1 dS50kMM+EXAvUDV6gRigFPydT SUthS5xZZmoRjZ3HYZbKyWxsD 78rRNrAWtwDi2edGcsnSsnVD1 w GKJfxguhm862KcLgm9wvEWGuf UOlPFamDYJ7N67er6H8GJOuMJ BkSGL5yVP6kE4knUrotlcviMK m cBbmofNujIpeZXczIIjwX536G PQclJjnXbSytSUrL6xsfbRFJQ 1lOjwvdGQ+ZARiLIX9oMskJKj w CXDoeG7rQSGfX9p8ZvRtSuX8Y VjsT8XqgkM1FLNtwPJnKPNllV RHxG6fbyrtc9gghsxhYbHhMGI w WVo1OPz2ULRboFqaWzEvALL3T hT4QGU0kSDlpU7aeAoymwgrrT 9wOyc+RklOOjwvdGQ+PHRkIHN 0 jCxwSPpfRZTqdB2pUETgC8c5W eNkRzV4USwbR3PewlL7EUTtmI AjAQOttSNOxV7hfjyvo6ffpxv g TyMwYNQcYFk1YTb6VKQmkAoeM vApXZY0OeL9MAY3tZNdqY4asA prptcasD5vCap+TVJOOjwvdGQ + LWRsOPA2pBufEFsmFJJenX2jF FZxU9o2HjFiNgC6HJjcV8Buns C9MTBoxDHtPBBitLDQoK4jiiu j c8xulccoKhYlYRKfPSt7SZz0E ZMbzNoaYaDeYHW7JwM4MCZ1qB PmpR4kcQbrlqvrnU7wPla+UGF 5 ARL0FQ67SS31R7XeAomwjZUal +PHRhYmxlIHdpZHRoPScxMD VnQuNgfNumIM1lCf7gACShGRJ v bGx (more content not included)... [facility] Consent Formson 09-16-2020 Consent Forms [id number] FF [facility] Anesthesia Noteon 09-15-2020 Anesthesia Note Patient: [...] on: 09/15/2020 10:15 EDT] Hang Iyer MD [facility] Anesthesia Note Patient: WILLIE EASTMAN Age: 45 years Sex: MALE : 1975 Associated Diagnoses: None Author: Hang Iyer MD Preoperative Information Anesthesia history: Patient history: No difficult intubation, No malignant hyperthermia. Family history: No malignant hyperthermia. Review of Systems Respiratory: No shortness of breath, No apnea. Cardiovascular: No known ME, No chest pain. Gastrointestinal: No heartburn. Health [...] Heart Rate Peripheral 69 bpm (SEPTEMBER 15 08:) Resp Rate 16 br/min (SEPTEMBER 15:) SBP 127 mmHg (SEPTEMBER 15:) DBP H 98 mmHg (SEPTEMBER 15:) Weight 124.40 kg (SEPTEMBER 15:) Height 175.26 cm (SEPTEMBER 15:) General: Alert and oriented, No acute distress. Airway: Mallampati classification: II (soft palate, fauces, uvula visible). Mouth: Within normal limits. Respiratory: Respirations are non-labored. Cardiovascular: Normal rate. Review / Management Laboratory Results Plan [place] [employer]#(ASA) physical status classification: Class II. Anesthetic Preoperative Plan Anesthesia: Monitored anesthesia care. Anesthetic plan, risks, benefits, and alternatives discussed with the patient and/or family. Patient verbalized understanding. Informed consent was given. Consent was signed by the patient. [Electronically Signed on: 09/15/2020 10:09 EDT] Hang Iyer MD [Verified on: 09/15/2020 10:09 EDT] Hang Iyer MD [facility] Inpatient Patient Summaryon 09-15-2020 Inpatient Patient Summary [address] [address] Patient Discharge Instructions Name: CARMELITA EASTMAN : 1975 Patient Address: [facility] [place] [address] Primary Care Provider: Name: Misbah Donahue After you are discharged if you find you have any questions, please, call [phone] ext [phone] to speak to a nurse. Discharge Diagnosis: Low back pain; Lumbar neuritis Prescription Information: If you have been given a prescription for narcotics, seek immediate medical attention if you have any difficulty breathing or any sudden status changes such as confusion and sleepiness. If you or anyone you know is experiencing suicidal thoughts, mental health, alcohol and/or drug addiction problems; contact the [facility] 20/11 Crisis Hotline -text 4HYTU to 560147. If you received any narcotics, sedation, or [...] business decisions or sign any legal documents [facility] would like to thank you for allowing [...] for Disease Control and Prevention December 2013 [facility] MAGR Intraoperative Recordon 09-15-2020 MAGR Intraoperative Record MAGR Intra-Op Record Summary Primary Physician: Juan Carlos Owusu MD Finalized Date/Time: 09/15/20 10:15:33 Pt. Name: CARMELITA EASTMAN/Sex: 1975 MALE Med Rec #: [id number] Physician: Juan Carlos Owusu MD Financial #: [id number] Pt. Type: D Room/Bed: / Admit/Disch: 09/15/20 08:10:15 - Institution: Case Times MAGR Entry 1 Patient In Room Time 09/15/20 10:09:00 Out Room Time 09/15/20 10:15:00 Anesthesia Start Time 09/15/20 10:09:00 Stop Time 09/15/20 10:14:00 Surgery Start Time 09/15/20 10:12:00 Stop Time 09/15/20 10:14:00 Last Modified By: Joann SIMON, Luly 09/15/20 10:15:23 Case Attendance MAGR Entry 1 Entry 2 Entry 3 Case Attendee Juan Carlos Owusu MD, Satya S MD McKenna RN, Luly Role Performed Surgeon - Primary Anesthesiologist of Credit Coordinator Record Time In 09/15/20 10:09:00 09/15/20 10:09:00 09/15/20 10:09:00 Time Out 09/15/20 10:15:00 09/15/20 10:15:00 09/15/20 10:15:00 Procedure Epidural Steroid Epidural Steroid Epidural Steroid Injection Injection Injection Last Modified By: Joann SIMON, Luly David RN, Luly David RN, Luly 09/15/20 10:15:07 09/15/20 10:15:07 09/15/20 10:15:07 Entry 4 Entry 5 Entry 6 Case Attendee Scott SIMON, Halie Cabrales, Tiffany Flannery CST Role Performed Credit Coordinator Credit Coordinator Scrub Personnel Time In 09/15/20 10:09:00 09/15/20 10:09:00 09/15/20 10:09:00 Time Out 09/15/20 10:15:00 09/15/20 10:15:00 09/15/20 10:15:00 Procedure Epidural Steroid Epidural Steroid Epidural Steroid Injection Injection Injection Last Modified By: Joann SIMON, Luly David RN, Luly David RN, Luly 09/15/20 10:15:07 09/15/20 10:15:07 09/15/20 10:15:07 Entry 7 Entry 8 Case Attendee Flores [place] Sarah E Role Performed Fire Information Officer Fire Information Officer Time In 09/15/20 10:09:00 09/15/20 10:09:00 Time Out 09/15/20 10:15:00 09/15/20 10:15:00 Procedure Epidural Steroid Epidural Steroid Injection Injection Last Modified By: Luly David RN, RN, Jennifer 09/15/20 10:15:07 09/15/20 10:15:07 Surgical Procedures MAGR [...] Skin Prep Synt (more content not included)... [facility] [place] Preoperative Record MAGR Pre-Op Record Summary Primary Physician: Juan Carlos Owusu MD Finalized Date/Time: 09/15/20 10:09:50 Pt. Name: CARMELITA EASTMAN /Sex: 1975 MALE Med Rec #: [id number] Physician: Juan Carlos Owusu MD Financial #: [id number] Pt. Type: D Room/Bed: / Admit/Disch: 09/15/20 [...] consent correct. General Comments: Pt arrives to w ambulatory. Pt has pain #7. Pt denies cp, sob, cough or flu like symptoms. Pt denies pacemaker/defibillator or sleep apnea. Pt has a pain stimulator on right side of back. Discharge instructions were reviewed with pt and he verbalizes understanding. Finalized By: Luly David RN Document Signatures Signed By: Luly David RN 09/15/20 10:09 [facility] Operative Report - Surgeon/P shagufta 09-15-2020 [...] 09/15/2020 10:13 EDT] Juan Carlos Owusu MD [facility] Patient Handouton 09-15-[address] [facility] Coding Summaryon 09-13-2020 Coding Summary HTMLBase 64 OyvackqjWMg2dIv+PGhlYWQ+P B7BTANvM70mxKMdsQ2XM0lSFL 4WLEOJRNLABZ7ZCP1izXA9UYa hB4KqnbSa QpffhGWfUQ44EHp5ZAX1zVswH MpvxY3zpVZgF8r0PsBvJF39dX 60DPxaJSKlBeP5GxBupzkysUB y C1rsCdIudGPkMim+PHRhYmxlI HdpZHRoPScxMDAlJyBzdHlsZT 8xJx0uTGQtNNYbhNbkyUIlMeO j o3ipPKLoISjnPB4fcCorU9Dfr DX4LKTxw7d7Vv69rZP+PHRkIH P1jWxlWExgh514RdRem7keHFS 3 oENnOQevFDT3X36ey5P3ZPZkP MRgRFH1vRY9uR9sqMcdthxkP1 XliKWwSsP5USR6uXHjcP6lyVj n vtbudA4hLlj+A77NXY3KVIYPY X1JCwc3A3RoLghahLV+PC90YW MpGG73xWXysVIms6mpfIb5JlH w MCMfNEA2fJdlQYdus4QbFZMcF 68tmZIdv5F1MTGqnStdhIRsSe UmhJO6bD0hTQwijfjiv0qbjkz n Bigtz5pyko57xC63B28jTSvrA NTyVKT6GEFwHOVwdXqast4cuH 9wIi8+QWiyp6rdl6xtqSm2OlO w XRWlvhFenSjkBIN6r8VfXy01X 4RijGuww5LdIrm4ly00fKYfo7 K2vKV1JTpfXBRobB1lFYkpWsW 6 BJBkXvHqvA09oOByWNygPg1zd TolxDljYQ5kPNEgyinlYYIfsJ 0jPRDlaBWgeGuqCH6mDOSdvjv m m081MeHnRTK0KWWxmFHqC2Pqu Q8lIsFwZMHqEQZsW8VobJPuKF brX802HDasEnM0KHSgzmCdQ9H s FCZfzWibXyH1w8R5Uh6Td6Epc bypTWY3DWlpZEI2VkQ6BhNvZs S8A6ZnTct7EDMmhAnmHD7yI4V h WCYvnstthdxjaZD3RZNzOONxd N92wNIsQMcrBa3yf7C5j195TK LhSAPndQ53Fm1nyHbeIWGyfLT U vF0hovewk9qjxxivFgZdRSOhJ Tv9GPo1ZXCtgPzlRmPgVFT9Fx I5UZC3cTDoaR1trBmzrwcmsK7 w Oyc+D05ljB4sFRC7JGL1gxgdA WFjkmXjJF71AF82O8UzHztevF FibGU+FTHguyGmcPyeSZ7zOuR j i8erb9QxGBteV6LgMNAkNDotK wm4GJZwTBL7fUM2wX8oVHZqSP bzy7G9jRF4G7YxioEwto4ey8r s AZWeOSacE51saNPoj8R6KOLoz AM6XGEniJxuPfKrxS93Kwl+PG DogKqeq1LjVngcg2lmr5wzvIo 9 YtFyPZEjtoVpzWyvKWX4c6DjH d28K95kUBgwZUGcBCRnODXcYR WzzMlock6xtY0cMo0+PGNvbCB 3 sGN0sG9qKZWqSdK4NEbgR408C iDsoMOaIyoga1czs3dxlNr1Jf IcLNUlhmZpaJpsIPU0i9HbMx2 8 M27qCSuqEZOiRSUoRCZoPVBkc Fqmho0wbO3vVq7+MV1mh9sydk 65wY16iYQ+RADbBEH3uLhqSIv w LZWcjC8gTUpzUdL2BESwEoItw M85mLUsDWyeQy4enNoswEonAM 2hMAAdteild431MpJvh2gwNOW w cAWvFNhjWQP0A53zg9R4ZVFoP STgFMT8xKX7mI9cuFefcevhrB XpaGlopxUplHkwTPdpGXkzL25 6 IHRvcDsnPlBhdGllbnQgTmFtZ Pm1I3FwWih4LBZunKncIS9uxE IiHTbsVg9ebBpyuXphTF6xQNF p yzvzv886PdIvy9hqTYTmjARzV GiePAC6S35gl6A4YDGyWRShTK K5gCQ0iL5ghVxheamjmUUguTi g rzNjsQucIJmkUCcnQ789BXAki SgzBzYwtrOqBNKjbNQ1ZR63FR 57qBVrw2N5bNM4H9LzWENivpr t gsdedYY7QCHbUIZquD01Vh2ye GgvVl6uCPDlZPZ0HEBfpTAoD2 BpvI4vFuSpPUJtODQlF2PzqJL t QZzpL285DSgaCfD9RANbdtGaC 0EjMENndHvtJqI6p9K6Su1WK7 G4VW88OF64gJArk7M0hBB0G2A h XWVxentdvygjhOQ8QZOjFXNbp W25Op3wkWsvAz0kDLPdSJU0NZ YemBSgY7ZuzI1sWzSqYMEmZSH w B0FfgBQjUQisX958LNgjHuA5F IBdgiXoL9YmXJLlaLgaRuA8i4 U6Rg9RKIr5XJ92TM31xYGmh2S 5 oKE5N3ZfWLEhdkytmzpfkKW8V TVlLLNbsA00Nb0fhSpfVl2jJI AeLBF5IWZhqPOuG5NqiE8iNhF j QCDuXPCfH6GqkACbLKmyS384Q NimSiU7PBOezsHfR5KvYDKatO opSlV9a0M2Ms9GDPJiNV39YBE 5 qJX1DS94VB86N0GfAvhcqZDcj +PHRhYmxlIHdpZHRoPScxMD IjQkJomUjdRT3xYm6uNOKbJLJ v yYxyxNNkAmDug8mrUOUoRTdqU N7owCmvD2LztWO0PEZgx6e8Mk 99S77zX0CrvOY+WAXjeFI5cZC 0 iE2hPbRxRlS8MMuqT916ZcWqi OAtDsxpb8eql2iaeXg5ZaI0BA WbycZslAzrYQA3o5AqDv80F92 s IHdpZHRoPSIxNSUiIHZhbGlnb n7niM0pOf9+GNNcuJE6qOR5bA 5wVvLuYiC7URojF892RfWqdMI v Wkegw2lzr5bgdHx9XtRlUIMpt zPjmRyyXOQ5b9RjDk14A1JwrN uxr2GvUio8kl40pTTnx7H9yXM 9 M0RgWASgjqtvnGLdyEeySO4yE QGmyujwJFZmnO7iJFEtY3u7Ta VbXyX2ITghC4ApjmL5PTPpvNF g IFvxPMV5V28bb0N8MONaWBTfG JP5nSS3iT1kwLtkewjrfPKixO jtamOlwQdiJFrzGXbfO682YZW v cAkeYOYxyZ8tDTHruQJsvOclB R9yHFQtmzimUicRKALZHVHAWU HQASarAEdBXM69M2VuOnb7QYD z bGjkPB5bnQQyIIigMl2wgErex XxnWG2dNWItlvybNISmcY1nBU VspEWhfAqbKL9hPOEntijar46 0 KpEaBEN2BVCaoFSsQ3KqtF0cM oIvXNPrJCYkR4BmwIBtIXtlJ3 52NSrpDyQ9RWTmhsUmN0MwRSF s kLbdDoW2u2R7Bx1nGF6cMd7rJ Cn8YU52TB60gIFxx9J7oRS1N6 NrRDIkzxabpciclTZ6SCSbPOO w tU92tWJfYZgwDr4he2J5e679W RVpTXVnlI39Gk1wqJcaUCCcyI YOzQ4xacyog1jnltcjJqBzPDI w JJk6HZl0PZTfvOalPrQmXTD1G eY0ALT5cZMvtF2iaKnzxgujzT 9wOyc+FTGlMOGrrwD3Q8IbHwb 0 FDYdmCgkVG9ueUChNXjcIg6os VkbrDhtDM2jLYOwqugaWPBleP 1gYRXnvXJzdZqkIT0rCAAjvns m k159BiGtFEH0MWVmwTTzK3Rza G3vSgLhZONcBYMpA7InrMJyFY skL427IMunEgJ9MHHoyxEhL6M s SSIgeUfpWbL3e7T0Lz4SOQjBJ G74DL67bHMud3F1wWY2V4KbXV ZaywhsxrtvcOZ7OVRoRBCzqJ6 7 wSQvVFcgAf5hy3P7d384XFWtP ECpdU19Sc9ntYcpEDEfdSMLtN 6acubaa4xmpuqkUcDbOBCvQBt 0 XQl7VOUwaBbuEuRgZDG1EuK6U PX5iPDaxO2tvHdbgqfhyK1tPc c+Z5X2Z7LkLmjbgQK+XB43XRS s VS20zAMlhBMlh5cscQm3UkFtX ZZhRZD4rTcrZWzfi9PhCRBiJ0 4pjVXea5G4NPEnaGiftWArGdV l qUR3eZ6nGWwmzqrlz1kdwcuoF cjve7olth58eF08M64sCYqgAM YmNFLnQXSbJVLcyZutpm4rfI2 w Ii8+KQSxoIL9oIL9tO5qImWpW kP5OEyeK520FjIutTIeVbnws9 xeb1qaiOt8UwZuAXOknoPhdWo u RFL6c4UpHj18T30aSHdeVUBzD OOdHLUvPLQyxZqaml1iwD2uNs 8+AP5ie2bucr51eI16vLM+PHR k WTR1qGqaCWmgPOJusW5gCPhjH zC7DGDtZvGaaB82fGLfGWybSq 6gjUmltYkdYD8bNXOtdxlda25 0 HnLkn4avBFOeiFShATiuCVS4N 91hm2F7WDJpPFFzXPY1hIC9tD 1hbGlnbjogbGVmdDsgdmVydGl j HJyhEHwqW158PBIfvOkxIiZim OCuS6iskoUAOO4fHgbxnDM+PH JySSL4bEhrVLfgRCEtlO6eUWC p Q1l6ExJpQsO3NUhjZ8QfgyQ5X JOpbVLzHEJtsXAEiF3tgnind6 bqnlocEiSfGDPcKMb1RTj4RLG s xLsgMwJjLCU4BwK7QBG0tAZfz H4ffGbkygyeiZ4tEsi+RklOOj wvdGQ+PBQdGPH7uVqhBXqjIRW k dK9vGNUkY9z2VjFlJrT4AOcsT 8HardP0PPVzkLWpAHGqlHYIeG 7ozvgld0ktmeprIwAyRIIyOAr 0 SSz7RTBpyWcqJjLzVUW8VlV5U CQ9qHJxzI3jkVguvhtqnM2yDc c+TVJOOjwvdGQ+INBkNTE9qCe l GQdmFEYymC9cESSnP4l3JdQtM kD2WBmoC6KklfC8TELzmFRoVG LpsAJLtB3rewfhf7vzlpowFeF w SSWvHWk9VDt9EOEeaWabMjHdI FN9DnW6LRG3vZQhhO1gpIuqcl pcxT8dIxc+CPN7IOM3QR95LX9 8 U4EhLooagRHzmOH+PHRhYmxlI HdpZHRoPScxMDAlJyBzdHlsZT 2gJg1hUGMnWNDlyVsfpBJrRrL j b2x (more content not included)... Normal [facility] 2018 Novel Coronavirus (CoVI D-19), SANDRA LCon 09-11-2020 SARS-CoV-2 (COVID-19) RNA SANDRA+probe Ql (Unsp spec) Not detected Invalid Interpretation Code Not Detected [facility] Comment on above: Order Comment: 39979 [phone] Result Comment: This nucleic acid amplification test was developed and its performance characteristics determined by [employer]. Nucleic acid amplification tests include RT- PCR [...] detected) result in this assay. Performed At: [facility] ([facility] [address], [place] [id number] Luz Elena Beckford PhD Ph:[phone] Performed By: #### [id number] ####[facility] ([facility])[address] [place] [address] Patient Handouton 09-03-[address] [facility] Progress Note - Provideron 0 09-03-2020 Progress Note - Provider [id number] [facility] Coding Summaryon 09-02-2020 Coding Summary HTMLBase 64 RztzrmysLLh3tLc+PGhlYWQ+P C4IZNHrG77dtRIuxW4BQ7wXEE 2WXQQJDFEPDR5DDJ0zpXM6QTp gR5VntlPd PxwopHVxJT61IJn7UMO2cZrjH PhysM0gkGFtF8i9NfOyRR41fE 78UQllATReHtX2AwBdoziayXI y J9xzZfVnwUAeLhx+PHRhYmxlI HdpZHRoPScxMDAlJyBzdHlsZT 5tDq7tTVXwIFTpzGgghNUgCaD j c9kyNHAzJEqfGO8rqCgiB0Ckr ME9RZKlg2a6Mv05zVQ+PHRkIH W2bXktNOmwh715OoTlv7htTUC 3 zCJyXXuzFRG0E52em1B3CSQnX XOrXDO4jXX1kC3rwRzrcgjkT0 DrjCCcNwA6WFV3bOPfxL7soSp n qfaksP3eXen+B21IKJ9DOBKXC V5EUdd0F7ImWtwgkKZ+PC90YW MjHH98mNWuvIXdi4jtaHc9GxV w TEXtLDF0jUlaFJpji8HwWNBiK 54ksWLbs5G0VGAuzJcmkTBtPm LemCB5oU1aXMwdthucq4kenta n Vyyqy5kleh92mA31G80uIFoiL ZYpIQL5TFLtURZfqIssfp1xnV 9wIi8+JBbvi9iiu9notJf9DxQ w MNQpluSfbFwzXZE5r3JyYu12R 8UsnLxll3YiIsk0oz41uUWwo7 D6uHU5ACcuDISmwW7sQGmrHvD 6 PBRwFhYtuI99lRHpPOzdFg3sd LpprMkmPF1yPSYhyolzJCDveW 1rCXGfdQZaiUfzWX7zQMAvenn m d462DdVmSRR3KCXnuIOkW2Yko X1hDeHjNTIxIMPlZ4IcdQZoOH biK188ZXvkAmF0GSYeuoDmN5P s DDRezPhyEoA4m0V1Tv4Pz1Diq ubqCIM8UDuiRFA4DtF6HlBfAu M9Q7PfHbp7KTCuaVxlEP2bU8D h MLTbjhedhhhgcDM0WLBmTUPgj M97zUAiIDomLt1iq6I7j904QP WyPUMlnI63Wn4tiIgpVXKvhVT U tW3hkadnz2hdrbrkMxDvKOVsV Kj3JAa5HEJnhCxdSpPjPSU4Gu E2KKP5xJExvT7ugLbzjjjydZ4 w Oyc+X22oiT0aLIH0XPQ5zcziY DHvvtYyUG68VV33J4YzFlzvkO FibGU+ZNVkruPwdXusLI8qZiG j l6ysg2HpPPzuG5LqTQRmCPxzB oc3BQYsBAO0nVV1pH4qBXQhAA ueh3C0bCF2I7ZdnkOblo6pv9x s WGQqQCruK93iwTUox3Y6TRBqf TE1GOXvbVfyOfMxzQ81Cse+PG HwgBbfm0GmEvhgd1xjh2wunVt 9 NwPgAQWjzaHbqVqlVRD2e3FmV t65J84pWXvfJVUqVNOePLSdDU BmgUupxf7mvT1aCi5+PGNvbCB 3 gSJ8yX3sAUUhImC7IFgjG534P qLdhEZsVhqtw8bce3ivmZg0Fj UoPXGiggJyzCbhMDR3m5McRd1 8 N19qCDffVSHrPHTfYQEtEFLnp Jzkeu8eqI7ePm7+IN2gs0fqvd 97iG20aJA+KSXoHNQ3lGtjVBs w QJNnvP2yLCzbPkX2JGLhHlMcj P89wOUbEUyaIn6slYdbxGjuRY 0nCYSmhlhhe523YlDbc8brMLJ w uBQkPZvqBZY0Q90rq9M4JBLoU YMpJCY8xQC2fE8jnJxndkbvuS FbmJjencRcgNccOMlbJJouL46 6 IHRvcDsnPlBhdGllbnQgTmFtZ Av1Y7MdZkm8YFUrvZbjHU4diW NfVTcdDh6ueRlosPbwAZ1fECW p lijle884RuOtx5srGAAcfDSeY EgkGVM4D44rt8U2CNOdLYWzRD P6kRV4nR4xlEkwdsvktAAvwQk g pgDvaZtnBSouTDwiB632AFBam SblKkDrhpUsTTMtwIY9MI85PY 11hGElm8Y0aFD9T1IdASIyhrq t ymhbnDE3MKVoZLEnwV58Yb8so AtoDz1aGHImAPU7RLZhhALkM7 MmlT0cMtCdJNSqEFKrG8TdyAL t XIwwF301BYluSxY0MZSbrkDaO 7QaKALsuIdwEtK2l9H5Nh3WD4 K5QR04ZI76nAUnz9H5rMZ3V8D h PVPbdkuabzpdcXT4GRMdASHih G34Dj4dpDhlAy8gBFAdDET9QJ VxtKEhL4VznW6oJkFkNSQbYKO w W2CagWMlHHttP138XQviMeD2R TGoudAlT7UrUVOotTsfYsH2h0 E6Au1MPYi2NO56CE05dVGnu6A 5 cWW4D2HlSTHoendblroevPE4B WNfOLWlqA70Ph5lcYxvEi7uBV GzWQW2IXMwcQVzO1FruH3wIwS j GOEsKJXgS4BgcQRuGYuiO796J AjcJqW0SOGunrDiN3QnRQAgbJ drAqV2j4W4Of6HDFCrKT79BTU 5 vOD4LP25PF39K3FrEmhndHIhi +PHRhYmxlIHdpZHRoPScxMD CzBaEaiYtbOP8uQw6dMXTdEEK v xLbbyEXpMrSvv2udUPUfPQzwV U0pcKfrG5HnxXW4SEEhx8g5Tv 41R59iJ6WgaJI+SWBckSB1qMP 0 rA4eZjPlOlN1BEyfY608VqPnn IIqBadrk6hsb2envGr4FgU1YM MeucBdbLgeKKL6x5ZeBg88I26 s IHdpZHRoPSIxNSUiIHZhbGlnb b7gbP4iRj1+GLAgnVR5vSU0tD 6wPnSiHsH5JRmmS846FkFwmWG v Dtxzt6mpz4rkcWi0OjWwTKNyg xPzuDyfSXH0o9ThHj48M7DnlR rou1ZwYir0sw13wPIqh0Q7wVZ 9 L1UtAACyskhjwJQuxOshKK6zI BMbikuiIPPelG8pNBKxE7o9Te MeRrY1ZLtfG3AjrdM2NZRswFI g WWfeQTZ4O52bn7X6WOOuSKYjP UJ3uUI7yH3fyRnrwpecyCVsuV cpfyIkwTbeVHqqYBgfO016MAH v oEntDYGmtA4rLTDuoWBdiRzoI I1zLQVsoycsPumMMMWUBHDYMQ IPOVlhIXqRXB64L6PxHkp3MPM z bRnpLE5qoIVeEWxlSk0vkRhfg LtaQO3wBQIjovfsNECvoX5mCC TafZOzcMsuUU7kHWSgnwast65 0 QnSgMQF2XMMjeTWdQ5LdiN1xM kBkESXiUGYzB3NsfBKfCZqhC0 49FOcuNfB3MCCdxmOqC7OpVMU s zGopCmN9y4E6Ld0qLT4rWe8vH Vk1KU26UZ99fPEyy8X9oHJ6N5 BySQQhfygpfiwefSZ7WRTiHRM w pH29rRHlNJtqJi6ck2Y7n411F OUkSMUvfP97Rw9cwDspOGDiiP CXnC0fawsrv0gytcmdBhAfOPN w VFu8CHa3TDEklNlpEtAsXLK0K lL6LKC7oBClaA6wzNgikcwreI 9wOyc+TSEyNOGelaR4F8TjDmr 0 RQJkmKwhTA4bpJBjNPtxZo4ov JjliIibYV7nAFFxknogAEAquJ 6oNOKbnIVerCybAA1iOZJxksh m g630LzPvUOT0MOLxbFIgB6Muk K3pCaPdUMNwGLIhM6GrzWPsGH lhN635NLhdEjE7IPMnwoSzF5X s VAAqjVqmVnS8q3L4Vx8VWJhHH R69TX45hOWwf1F0sQM5Y0MtAF PgmuezvewvnUC9EMKdGBIodN1 7 dYStVVhzWo3pv8R5r314PLNuH BJpiH59Ph3khUyfLMJbqHQQyM 1vpmrdj9lrzpvhBcDlLCBsKVf 0 BEo3JUZicGfmVwAmYKA8NfY5Y WS9oZAiaB0tzMrgocwtsR9aLb c+M6R4H8ZkFokvnOD+JK53PYU s TO26oFEhfQRux9pcsHi6JoKlR GSpQIJ2cLksQPwwn0HzPLOjW6 1mhLBez0N0UDSmnBcfnRNuVuS l sYW0nM4gGTznjqdnh1ijvagrH mwxo4dywc25dG77F95pPMqhCR XsTTMnLTEkTSRthTptux5xxB3 w Ii8+NUGacTE0gQG3pC5zPvXbR jO9VRhiG948LfPbzGNaSdvha0 rzw3wdcTr8XyGpQZTpvaDwnEz u YBW0x3ZiWs89S78hMNssOTRiQ QQjGWFyZFBcfDnmfp8gwR2zPn 8+RD0mn0bxir28cS62hYI+PHR k VTY0yDbfQXlaDTWoyY3wILbkX gE2PKXhWqNasA51uUNgJVgvSd 2tlHvijKanMW1aPDBfzrdga61 0 CsRne7esQVAffMHgDSsqFGM3D 31tl8R2FHPuMMNvZPE2cNP1vZ 1hbGlnbjogbGVmdDsgdmVydGl j ETijBZmtT425JFOtsNbsWzVog ZUpA0jqkoEMIZ9qAcsutJH+PH EdTMM6dYwkEAgjXCGkeL3jXDD p Z3a4WgJrWwG1TUefY7ScatU5W BZycODyZVYuyOHEyU3irymsm9 jzteafTmZwZOJuVVt4ZBg0CZC s pPkjImZzRJY9VfL4NFN7bTTpv K3fdNisunfxjE0lVwn+RklOOj wvdGQ+JVTcBSA4mMjbJVbpVOO k kS5xCLVcI5o2KhSyQzC4WPmkG 0NtvoD3ITKvtTUdQDVkjMQZoN 5arjhgt8mnereoXdXnAKFxWDq 0 LOx6ILPmrUpnOlTeOAH7GmQ5Z ZW9oOOmxR0fuBtqiigfxV2tEv c+TVJOOjwvdGQ+PYMeURQ5gKh l RHrsPRHuqS4aIIEnU0w6RcRzZ cT9UNgeV5ElxeJ3WOSofBMiSG PybCKJqG3qxoztg8vsskaqXaS w USPhNTo3THr4KKQsvIpbWiRhK XZ9MdJ7IJF1hFUiiT1syMmhkx wwwO0bHux+ZTI7HRL4MA61EN0 8 X0GiTzpscFBocHB+PHRhYmxlI HdpZHRoPScxMDAlJyBzdHlsZT 1rDb5dZWZvOUUviVubiLCuSpC j b2x (more content not included)... [facility] Progress Note - Nurseon Progress Note - Nurse Per Liss add Traz odone 50mg at bedtime. [Electronically Signed on: 08/31/2020 14:14 EDT] Swapna Arana [Verified on: 08/31/2020 14:14 EDT] Swapna Arana [facility] Coding Summaryon 08-26-2020 Coding Summary HTMLBase 64 NpbwrtkkQLu8cGx+PGhlYWQ+P G5PZBJiZ79ocILlcC4VM7qZOR 8MHFPHOLXUDQ1ULQ2orIC9BMz yN9IgooWr JdupnUShAH67MBq2ABC0cOxbY YfyuH1mxAWnB5v8SaRoZX48tJ 82ZHnvZLZrVgC0RlEbommiyTQ y K7aiRzMslNRxPut+PHRhYmxlI HdpZHRoPScxMDAlJyBzdHlsZT 4aZe7wQFKiUYGkgVtxhOOsSrW j f8eePHLpWRltHX2rhYyuJ7Nco AP7IHCrj2e9Zv25gDB+PHRkIH Y2ePujPTilj976PqTkb4ifUOL 3 kAMqPJzkGFV4Q10gi4R6HQQcM DScCWF0tUH4wB9mhIsbnnxlP9 SplHJuMqW4AAX1aWUzoK3zpZw n oeoldL5qJab+C08NIV9IRYUXY H0NLzi5W7LrRsiehBE+PC90YW AxAA01tCQtcPDgg9qhxBo6QbG w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 RAMIREZ #### [facility] [address] [place], [place] [address] Jorge Ca US KIDNEYSon 01-01-2019 US KIDNEYS Patient: WILLIE EASTMAN Exam Date: 01/01/2019 : 1975 Gender:M Ordering : DR ALEXX KAY . Admission #: [id number] Family : DR MILLER BUNN Order #: [id number] CLICK HERE TO VIEW EXAM RADIOLOGY REPORT [...] M.D. on 01/01/2019 at 16:05 Normal [facility] CBC AUTO DIFFon 12-26-2018 Basophils (Bld) [#/Vol] 0.0 103/ul Normal 0.0-0.1 [facility] Comment on above: Performed By: #### C BC #### [facility] [address] [place], [place] [address] Jorge Lanny Basophils/100 WBC (Bld) 0.5 % Normal 0.2-2.0 [facility] Comment on above: Performed By: #### C BC #### [facility] [address] [place] [id number] Jorge Lanny Eosinophils (Bld) [#/Vol] 0.3 103/ul Normal 0.0-0.7 [facility] Comment on above: Performed By: #### C BC #### [facility] [address] [place], [place] [address] Jorge Lanny Eosinophils/100 WBC (Bld) 3.1 % Normal 0.9-7.0 [facility] Comment on above: Performed By: #### C BC #### [facility] [address] [place], [place] [address] Jorge Lanny Erythrocyte distribution width (RBC) [Ratio] 12.8 % Normal 11.0-15.0 [facility] Comment on above: Performed By: #### C BC #### [facility] [address] [place], [place] [address] Jorge Lanny Hematocrit (Bld) [Volume fraction] 42.2 % Normal 42.0-54.0 [facility] Comment on above: Performed By: #### C BC #### [facility] [address] [place], [place] [address] Jorge Lanny Hemoglobin (Bld) [Mass/Vol] 13.9 g/dL Critically low 14.0-18.0 [facility] Comment on above: Performed By: #### C BC #### [facility] [address] [place], [place] [address] Jorge Lanny IG # 0.04 10e3/ul Critically high 0.00-0.03 [facility] Comment on above: Performed By: #### C BC #### [facility] [address] [place], [place] [address] Jorge Lanny IG % 0.5 % Normal 0.0-0.5 [facility] Comment on above: Performed By: #### C BC #### [facility] [address] [place], [place] [address] Jorge Lanny Lymphocytes (Bld) [#/Vol] 2.7 103/ul Normal 1.2-3.8 [facility] Comment on above: Performed By: #### C BC #### [facility] [address] [place], [place] [address] Jorge Lanny Lymphocytes/100 WBC (Bld) 32.5 % Normal 20.5-60.0 [facility] Comment on above: Performed By: #### C BC #### [facility] [address] [place], [place] [address] Jorge Lanny MANUAL DIFF REQ NO Normal [facility] Comment on above: Performed By: #### C BC #### [facility] [address] [place], [place] [address] Jorge Lanny MCH (RBC) [Entitic mass] 29.1 pg Normal 25.9-34.0 [facility] Comment on above: Performed By: #### C BC #### [facility] [address] [place], [place] [address] Jorge Lanny MCHC (RBC) [Mass/Vol] 32.9 g/dL Normal 29.9-35.2 [facility] Comment on above: Performed By: #### C BC #### [facility] [address] [place], [place] [address] Jorge Lanny MCV (RBC) [Entitic vol] 88.5 fL Normal 80.0-94.0 [facility] Comment on above: Performed By: #### C BC #### [facility] [address] [place], [place] [address] Jorge Lanny Monocytes (Bld) [#/Vol] 0.7 103/ul Normal 0.3-0.8 [facility] Comment on above: Performed By: #### C BC #### [facility] [address] [place], [place] [address] Jorge Lanny Monocytes/100 WBC (Bld) 8.6 % Normal 1.7-12.0 [facility] Comment on above: Performed By: #### C BC #### [facility] [address] [place], [place] [address] Jorge Lanny Neutrophils (Bld) [#/Vol] 4.6 103/ul Normal 1.4-6.5 [facility] Comment on above: Performed By: #### C BC #### [facility] [address] [place], [place] [address] Jorge Lanny Neutrophils/100 WBC (Bld) 54.8 % Normal 43.0-75.0 [facility] Comment on above: Performed By: #### C BC #### [facility] [address] [place], [place] [address] Jorge Lanny Platelet mean volume (Bld) [Entitic vol] 9.8 fL Normal 9.5-13.5 [facility] Comment on above: Performed By: #### C BC #### [facility] [address] [place], [place] [address] Jorge Lanny Platelets (Bld) [#/Vol] 292 103/ul Normal 150-450 [facility] Comment on above: Performed By: #### C BC #### [facility] [address] [place], [place] [address] Jorge Lanny RBC (Bld) [#/Vol] 4.77 106/ul Normal 4.70-6.10 [facility] Comment on above: Performed By: #### C BC #### [facility] [address] [place], [place] [address] Jorge Lanny WBC (Bld) [#/Vol] 8.4 103/ul Normal 4.0-11.0 [facility] Comment on above: Performed By: #### C BC #### [facility] [address] [place], [place] [address] ABD/PELVIS WO CONon 12-26 CT ABD/PELVIS WO CON Patient: PATRICIA EASTMAN Date: 12/26/2018 : 1975 Gender:M Ordering : SUNI DUENAS . Admission #: [id number] Family : DR JHON LIND D.O. Order #: [id number] CLICK HERE TO VIEW EXAM RADIOLOGY REPORT [...] M.D. on 12/26/2018 at 20:36 Normal [facility] URINE PROFILEon 9 Bilirubin [Mass/Vol] Negative Normal NEGATIVE [facility] Comment on above: Performed By: #### GHULAM RAMIREZ #### [facility] [address] [place] [address] Jorge Lanny BLOOD SMALL Normal NEGATIVE [facility] Comment on above: Performed By: #### GHULAM RAMIREZ #### [facility] [address] [place] [address] Jorge Lanny Clarity (U) CLEAR Normal [facility] Comment on above: Performed By: #### GHULAM RAMIREZ #### [facility] [address] [place] [address] Jorge Lanny Color (U) YELLOW Normal YELLOW [facility] Comment on above: Performed By: #### GHULAM RAMIREZ #### [facility] Laboratory [address] [place] [address] Jorge Lanny ERUAHD A micrscopic examina tion will be performed if indicated. Normal [facility] Comment on above: Performed By: #### GHULAM RAMIREZ #### [facility] [address] [place] [address] Jorge Lanny Glucose [Mass/Vol] Negative Normal NEGATIVE [facility] Comment on above: Performed By: #### GHULAM RAMIREZ #### [facility] [address] [place] [address] Jorge Lanny Ketones Ql (U) Negative Normal NEGATIVE [facility] Comment on above: Performed By: #### GHULAM RAMIREZ #### [facility] [address] [place] [address] Jorge Lanny Nitrite Ql (U) Negative Normal NEGATIVE [facility] Comment on above: Performed By: #### GHULAM RAMIREZ #### [facility] [address] [place] [address] Jorge Lanny pH (Bld) 5.5 Normal 5-9 [facility] Comment on above: Performed By: #### GHULAM RAMIREZ #### [facility] [address] [place] [address] Jorge Lanny Protein (U) [Mass/Vol] Negative Normal [facility] Comment on above: Performed By: #### GHULAM RAMIREZ #### [facility] [address] [place] [address] Jorge Lanny SPEC GRAVITY >=1.030 Normal 1.005-<=1. 025 [facility] Comment on above: Performed By: #### GHULAM RAMIREZ #### [facility] [address] [place], [place] [id number] Jorge Lanny UR MICRO IND INDICATED Normal [facility] Comment on above: Performed By: #### E GHULAM HOLGUIN #### [facility] [address] [place], [place] [id number] Jorge Lanny Urobilinogen Qn (U) 0.2 EU/dl Normal [facility] Comment on above: Performed By: #### GHULAM RAMIREZ #### [facility] [address] [place], [place] [phone] Jorge Lanny WBC (Bld) [#/Vol] Negative Normal NEGATIVE [facility] Comment on above: Performed By: #### GHULAM RAMIREZ #### [facility] [address] [place], [place] [id number] Jorge Lanny PROF CHEM 8 (BAS METB)on Anion gap [Moles/Vol] 14.9 mmol/L Normal [facility] Comment on above: Performed By: #### B MP #### [facility] [address] [place], [place] [phone] Jorge Lanny Calcium [Mass/Vol] 8.9 mg/dL Normal 8.4-10.2 [facility] Comment on above: Performed By: #### B MP #### [facility] [address] [place], [place] [phone] Jorge Lanny Chloride [Moles/Vol] 105 mmol/L Normal 98-107 [facility] Comment on above: Performed By: #### B MP #### [facility] [address] [place], [place] [address] Jorge Lanny CO2 [Moles/Vol] 23.9 mmol/L Normal 22.0-30.0 [facility] Comment on above: Performed By: #### B MP #### [facility] [address] [place], [place] [address] Jorge Lanny Creatinine [Mass/Vol] 1.05 mg/dL Normal 0.66-1.25 [facility] Comment on above: Performed By: #### B MP #### [facility] [address] [phone] Jorge Lanny EGFR-AF RUSSIAN >60 Normal >=60 [facility] Comment on above: Performed By: #### B MP #### [facility] [address] [place], [place] [address] Jorge Lanny EGFR-NON AF RUSSIAN >60 Normal >=60 [facility] Comment on above: Performed By: #### B MP #### [facility] [address] [phone] Jorge Lanny Glucose [Mass/Vol] 102 mg/dL Normal 74-106 [facility] Comment on above: Performed By: #### B MP #### [facility] [address] [place] [address] Jorge Lanny Potassium [Moles/Vol] 3.8 mmol/L Normal 3.4-5.0 [facility] Comment on above: Performed By: #### B MP #### [facility] [address] [place] [address] Jorge Lanny Sodium [Moles/Vol] 140 mmol/L Normal 137-145 [facility] Comment on above: Performed By: #### B MP #### [facility] [address] [place] [address] Jorge Lanny Urea nitrogen [Mass/Vol] 17.0 mg/dL Normal 9.0-20.0 [facility] Comment on above: Performed By: #### B MP #### [facility] [address] [place], [place] [address] Jorge Lanny Urea nitrogen/Creatinine [Mass ratio] 16.2 mg/mg Normal [facility] Comment on above: Performed By: #### B MP #### [facility] [address] [place], [place] [phone] Jorge Lanny URINE MICROSCOPIC ONLYon Bacteria LM.HPF (Urine sed) [#/Area] NONE SEEN Normal NONE SEEN [facility] Comment on above: Performed By: #### GHULAM RAMIREZ #### [facility] [address] [place] [address] Jorge Lanny CAST NONE SEEN Normal NONE SEEN [facility] Comment on above: Performed By: #### E RUR, UMICRO #### [facility] [address] [phone] Jorge Lanny Crystals LM Nom (Urine sed) NONE SEEN Normal NONE SEEN [facility] Comment on above: Performed By: #### E RUR, UMICRO #### [facility] [address] [place] [address] Jorge Lanny CULTURE NOT INDICATED Normal [facility] Comment on above: Performed By: #### E RUR, UMICRO #### [facility] [address] [place] [address] Jorge Lanny Epithelial cells LM.HPF (Urine sed) [#/Area] RARE Normal [facility] Comment on above: Performed By: #### E RUR, UMICRO #### [facility] [address] [place] [address] Jorge Lanny MUCOUS NONE SEEN Normal NONE SEEN [facility] Comment on above: Performed By: #### E RUR, UMICRO #### [facility] [address] [place], [place] [phone] Jorge Lanny RBC (U) [#/Vol] 5-10 Normal 0-[address] [facility] Comment on above: Performed By: #### E RUR, UMICRO #### [facility] [address] [place], [place] [phone] Jorge Lanny WBC (Bld) [#/Vol] NONE SEEN Normal NONE SEEN The [facility] Comment on above: Performed By: #### E RUR, UMICRO #### [facility] [address] [place], [place] [phone] Jorge Lanny Coding Summary.on 08-19-2017 Coding Summary. CODING DATE: 018 FINAL [facility] STATUS: Home (Routine DC) PAYOR: [employer] DESCRIPTION 8006 CT and CTA with [...] Nava Date Saved: 08/19/2017 10:26 am Normal [facility] Auto Diffon 08-18-2017 Basophils Auto #/vol (Bld) 0.0 E9/L Normal 0.0-0.2 [facility] Comment on above: Order Comment: Order Added by Discern Expert. Performed By: #### 2 534323, 0376037, 6913923, 4386548, 12931172, 5118432 ####[facility] [address] [place] [address] Basophils Auto #/vol (Bld) 0.6 % Normal 0.0-2.0 [facility] Comment on above: Order Comment: Order Added by Discern Expert. Performed By: #### 2 287614, 0620058, 3240300, 9908607, 17726213, 9843949 ####[facility] [address] [place] [address] Eosinophils 0.2 E9/L Normal 0.0-0.5 [facility] Comment on above: Order Comment: Order Added by Discern Expert. Performed By: #### 2 269235, 5889943, 7036210, 0394640, 27439746, 1403470 ####[facility] [address] [place] [address] Eosinophils/100 leukocytes 2.9 % Normal 0.0-8.0 [facility] Comment on above: Order Comment: Order Added by Discern Expert. Performed By: #### 2 767612, 7275957, 1140235, 8861945, 85036142, 6154718 ####[facility] [address] [place] [address] Lymphocytes 2.4 E9/L Normal 1.0-4.0 [facility] Comment on above: Order Comment: Order Added by Discern Expert. Performed By: #### 2 759765, 3590377, 9926425, 8826398, 06747412, 1647683 ####[facility] [address] [place] [address] Lymphocytes/100 leukocytes 29.5 % Normal 14.0-50.0 [facility] Comment on above: Order Comment: Order Added by Discern Expert. Performed By: #### 2 848886, 0011333, 3149336, 5990053, 10385827, 8964360 ####[facility] [address] [place] [address] Monocytes 0.5 E9/L Normal 0.2-1.0 [facility] Comment on above: Order Comment: Order Added by Petar Expert. Performed By: #### 2 520332, 0896788, 7361566, 7374125, 07743986, 3728781 ####[address] [place] [address] Monocytes/100 leukocytes 5.6 % Normal 4.0-14.0 [facility] Comment on above: Order Comment: Order Added by Petar Expert. Performed By: #### 2 878027, 7138648, 0248644, 9116363, 07018409, 4803561 ####[address] [place] [address] Neutrophils 5.1 E9/L Normal 2.0-7.5 [facility] Comment on above: Order Comment: Order Added by Discern Expert. Performed By: #### 2 084528, 4613106, 3529450, 5659609, 58168679, 8211199 ####[facility] [address] [place] [address] Neutrophils/100 leukocytes 61.4 % Normal 36.0-75.0 [facility] Comment on above: Order Comment: Order Added by Petar Expert. Performed By: #### 2 959087, 8299344, 3816866, 5568650, 37715908, 2238121 ####[facility] [address] [place] [address] BMPon 08-18-2017 BUN/Creatinine Ratio 20 No Units Normal 10-20 [facility] Comment on above: Performed By: #### 2 617105, 0330817, 2756588, 6113370, 21029329, 1604873 ####[facility] [address] [place] [address] Creatinine 0.9 mg/dL Normal 0.5-1.3 [facility] Comment on above: Performed By: #### 2 284257, 2843884, 2043748, 3509324, 67566373, 1052652 ####[facility] [address] [place] [address] Urea nitrogen 18 mg/dL Normal 5-21 [facility] Comment on above: Performed By: #### 2 169630, 5360543, 6104055, 5084283, 96810908, 6504942 ####[facility] [address] [place] [address] Anion gap 10 mmol/L Normal 6-16 [facility] Comment on above: Performed By: #### 2 880471, 6997290, 0154757, 5791988, 00437232, 7477421 ####[facility] [address] [place] [address] Calcium 9.2 mg/dL Normal 8.9-11.1 [facility] Comment on above: Performed By: #### 2 242316, 0601631, 3226874, 9733163, 30957086, 0836727 ####[facility] [address] [place] [address] Chloride 105 mmol/L Normal 101-111 [facility] Comment on above: Performed By: #### 2 834458, 4640988, 7208976, 8037713, 10323234, 4064784 ####[facility] [address] [place] [address] CO2 27 mmol/L Normal 21-31 [facility] Comment on above: Performed By: #### 2 401706, 7264826, 4093484, 4466618, 06326885, 7574904 ####[facility] [address] [place] [address] Glucose mass conc 135 mg/dL Normal 55-199 [facility] Comment on above: Result Comment: If t his glucose result represents a fasting glucose, interpretation should refer to the following reference range: 55-99 mg/dL Performed By: #### 2 802895, 2281163, 4357859, 6121050, 37474706, 2689494 ####[facility] [address] [place] [address] Potassium molar conc 3.6 mmol/L Normal 3.5-5.3 [facility] Comment on above: Performed By: #### 2 502621, 5961824, 4650465, 0045846, 20162901, 0823176 ####[facility] [address] [place] [address] Sodium 138 mmol/L Normal 135-145 [facility] Comment on above: Performed By: #### 2 047180, 6720843, 4339505, 8196437, 09916420, 9440910 ####[facility] [address] [place] [address] CBC w/ Auto Diffon 8 Erythrocyte distribution width Auto Ratio (RBC) 13.4 % Normal 10.9-14.2 [facility] Comment on above: Performed By: #### 2 184634, 6992694, 3251522, 9922378, 00946207, 3525409 ####[facility] [address] [place] [address] Erythrocytes (RBC) 5.4 E12/L Normal 4.3-5.9 [facility] Comment on above: Performed By: #### 2 587656, 1686562, 9206344, 2310585, 78340361, 0870808 ####[facility] [address] [place] [address] Hematocrit (HCT) 46.8 % Normal 37.7-49.0 [facility] Comment on above: Performed By: #### 2 361574, 0234707, 8019539, 3128484, 77288565, 9558678 ####[place] [address] Hemoglobin mass conc (Bld) 15.6 g/dL Normal 13.5-17.5 [facility] Comment on above: Performed By: #### 2 916185, 5443753, 7117776, 1364039, 31582762, 8220946 ####[place] [address] MCH 29.1 pg Normal 27.0-34.0 [facility] Comment on above: Performed By: #### 2 239983, 2374865, 9447162, 4359329, 78300130, 8104000 ####[place] [address] MCHC mass conc (RBC) 33.4 g/dL Normal 31.4-39.3 [facility] Comment on above: Performed By: #### 2 313926, 7924496, 2479595, 6407544, 09448311, 5461534 ####[address] MCV 87.1 fL Normal 80.0-100.0 [facility] Comment on above: Performed By: #### 2 670276, 3031953, 5946514, 8033248, 70894908, 8798459 ####[address] Platelet mean volume (PMV) 7.6 fL Normal 6.4-10.8 [facility] Comment on above: Performed By: #### 2 827198, 4206398, 8906842, 3395622, 48963290, 0605686 ####[address] [address] Platelets 302.0 E9/L Normal 150.0-500. 0 [facility] Comment on above: Performed By: #### 2 618331, 5796734, 3737153, 7710653, 51535803, 3432305 ####[facility] [address] [place] [address] WBC (Leukocytes) 8.3 E9/L Normal 4.0-11.0 [facility] Comment on above: Performed By: #### 2 830805, 3019183, 4768215, 4842852, 05991989, 5300540 ####[facility] [address] [place] [address] CTA Cheston 08-18-2017 CTA Chest Exam Date/Time:2017 [...] Isovue 370Contrast amount in ml's: 95 Normal [facility] Cardiac 0 Hr.on 08-18-2017 CREATINE KINASE.MB:CCNC:PT:SER/ PLAS:QN:EIA 0.7 ng/mL Normal 0.3-4.9 [facility] Comment on above: Performed By: #### 1 9579378 ####[facility] [address] [place] [address] Myoglobin 13 ng/mL Normal <=69 [facility] Comment on above: Performed By: #### 1 8552600 ####[facility] [address] [place] [address] Troponin I.cardiac mass conc ng/mL Normal <=0.03 [facility] Comment on above: Result Comment: New Troponin Assay 09/11/13ROC ME Cutoff value > or = 0.03 ng/mL in conjunction with clinical conditions of myocardial infarction.(www.[email or web address].org/guidelines) Performed By: #### 1 7980946 ####[facility] [address] [place] [address] Creatine kinase (CK) 45 Int._Unit/L Normal 14-261 [facility] Comment on above: Performed By: #### 1 1256858 ####[facility] [address] [place] [address] Discharge Instructionson Discharge Instructions Patient arri ve to transport patient home. Dischagre instructions complete, RR equal and non labored and nurs eeducated to make follow up and return for worsenign symptoms. Patinet provided with strainer. Normal [facility] Comment on above: Result Comment: Elec tronically Signed By: Danika SIMON, Barber Aguilar\.br\Date and Time Signed: 08/18/17 14:39 EDT ED Clinical Summaryon 2017 ED Clinical Summary (Inserted Image. Asmita ble to display) [address] [address] ED Clinical SummaryPerson Information Name: CARMELITA EASTMAN/Bandar Age: 41 Years : 1975 12:00 AM Sex: Male Language:Russian PCP: MILLER BUNN DO Marital Status: Visit [...] 2:40 PM 08/18/2017 2:40 PM ADDRESS:[address] [place] [place] [id number] [facility] DOC NOTES: MEDICAL INFORMATION: Prescriptions Given:Prescription Display [...] Refills(s) 0 PATIENT EDUCATION INFORMATION: Instructions:Flank Pain, Zbqk-ap-Hwet; Urine Strainer; Kidney Stones Follow up:With: Address: When: Fito Fortune [address] [place] [address] Business (1) Within 5 to 7 days Comments: Call physician if symptoms worsen Return to ED if symptoms worsen With Dr. Fortune regarding her kidney stones. With: Address: When: [place] [place], [place] [phone] Business (1) In 3 days 08/21/2017 Comments: Call physician if symptoms worsen Return to ED if symptoms worse DIAGNOSIS:1:Right flank pain; 2:Right kidney stone Normal [facility] ED Note-Physicianon 08-19-19 18 ED Note-Physician Basic Information Ti me Seen: [...] use, or recreational substances. Reviewed by Dr. Gonzalez of Systems Constitutional: mild sweats and nausea, [...] In 3 days 08/21/2017 EDT [address] [place] [address]- Business (1) Additional Instructions: Call physician if symptoms worsen Return to ED if symptoms worse Fito Fortune Within 5 to [address] [place] [address]- Business (1) Additional Instructions: Call physician if symptoms worsen Return to ED if symptoms worsen With Dr. Fortune regarding her kidney stones. Patient Education Flank Pain, Lwfc-od-Tzzz Urine Strainer Kidney StonesAttestation Patient was seen [...] 87.1 fL (08/18/17 08:27:00) MCH: 29.1 pg (08/18/17 08:27:00) MCHC: 33.4 gm/dL (08/18/17 08:27:00) RDW: 13.4 % (08/18/17 08:27:00) Platelet: 302 E9/L (08/18/17 08:27:00) MPV: 7.6 fL (08/18/17 08:27:00) Neutro Auto: 61.4 % (08/18/17 08:27:00) Lymph Auto: 29.5 % (08/18/17 08:27:00) [place] Auto: 5.6 % (08/18/17 08:27:00) Eos Auto: 2.9 % (08/18/17 08:27:00) Basophil Auto: 0.6 % (08/18/17 08:27:00) Neutro Absolute: 5.1 E9/L (08/18/17 08:27:00) Lymph Absolute: 2.4 E9/L (08/18/17 08:27:00) [place] Absolute: 0.5 E9/L (08/18/17 08:27:00) Eos Absolute: 0.2 E9/L (08/18/17 08:27:00) Basophil Absolute: 0 E9/L (08/18/17 08:27:00) Glucose Lvl: 135 mg/dL (08/18/17 08:27:00) BUN: 18 mg/dL (08/18/17 08:27:00) Creatinine: 0.9 mg/dL (08/18/17 08:27:00) eGFR: >60 (08/18/17:27:00) eGFR AA: >60 (08/18/17:27:00) BUN/Creat Ratio: 20 (08/18/17 08:27:00) Sodium Lvl: 138 mmol/L (08/18/17 08:27:00) Potassium Lvl: 3.6 mmol/L (08/18/17 08:27:00) Chloride: 105 mmol/L (08/18/17 08:27:00) CO2: 27 mmol/L (08/18/17 08:27:00) AGAP: 10 mEq/L (08/18/17:27:00) Calcium Lvl: 9.2 mg/dL (08/18/17 08:27:00) Alk Phos: 60 Int._Unit/L (08/18/17 08:27:00) ALT: 24 Int._Unit/L (08/18/17:27:00) AST: 21 Int._Unit/L (08/18/17:27:00) Total Protein: 7.6 gm/dL (08/18/17 08:27:00) Albumin Lvl: 4.1 gm/dL (08/18/17 08:27:00) Globulin: 3.5 gm/dL (08/18/17 08:27:00) A/G Ratio: 1.2 (08/18/17 08:27:00) Bili Total: 0.4 mg/dL (08/18/17 08:27:00) Bili Direct: <0.1 (08/18/17 08:27:00) Bili Indirect: Unable to Calculate Abnormal (08/18/17 08:27:00) Lipase Lvl: 28 unit/L (08/18/17 08:27:00) CK MB: 0.7 ng/mL (08/18/17 11:03:00) Myoglobin: [...] the liver is not included within the pgkwj-vx-fwmx of this renal stone protocol study. The [...] No acute ischemic changes. No ectopy. Normal [facility] Comment on above: Result Comment: Elec tronically Signed By: Vero Gonzalez\.br\Date and Time Signed: 08/18/17 08:48 EDT\.br\Electronically Co-Signed By: Maddy Rebolledo DO\.br\Date and Time Co-Signed: 08/18/17 12:34 EDT ED Patient Summaryon 018 ED Patient Summary (Inserted Image. Asmita ble to display) [address] [id number] Patient Discharge Instructions Person Information Name: CARMELITA EASTMAN Age: 41 Years Date: 08/18/2017 8:03 AMDischarge Diagnosis: 1:Right flank pain; 2:Right kidney stone Primary Care Physician: MILLER BUNN DO [facility] Provider: Maddy Rebolledo Production Wood Craftsman:None The exam and treatment you received in the Emergency Department were for an urgent problem and are not intended as complete care. It is important that you follow up with a doctor, nurse practitioner, or physician?s facility assistant for ongoing care. If your symptoms become worse or you do not improve as expected and you are unable to reach your usual health care provider, you should return to the Emergency Department. We are available 24 hours a day. CARMELITA EASTMAN has been given the following list of patient education materials, prescriptions and follow-up instructions: Follow-up Instructions:With: Address: When: Fito Fortune [address] [place] [address] [facility] (1) Within 5 to 7 days Comments: Call physician if symptoms worsen Return to ED if symptoms worsen With Dr. Fortune regarding her kidney stones. With: Address: When: MILLER BUNN [address] [place] [phone] [facility] (1) In 3 days 08/21/2017 Comments: Call physician if symptoms worsen Return to ED if symptoms worse In the event that this physician does not participate in your insurance network, please consult with your insurance company to find a nearby participating provider. Patient Education Materials:Flank Pain, Egoy-nl-Abyq; Urine Strainer; Kidney Stones A MESSAGE TO ALL PATIENTS REGARDING OPIOIDS PRESCRIPTION OPIOIDS: WHAT YOU NEED TO KNOW Prescription opioids can be used to help relieve kqebzmip-an-pkxadx pain and are often prescribed following a [...] be struggling with addiction, tell your health critical care clinical nurse specialist and ask for guidance or call SAMHSA?S National Helpline at 4-790-171-HELP. v Source: US Department of Health and Human Services/Center for Disease Control & Prevention [facility] Medications Given:Medication Dose Route Sodium [...] 0.Comment: Pharmacy Information: Thank you for choosing [facility] Patient Education Materials: Flank PainFlank pain is [...] Revised: 08/31/2014 Document Reviewed: 11/28/2012ExitCare? Patient Information ?2014 [employer]. This information is not intended to replace [...] Revised: 07/08/2012 Document Reviewed: 02/26/2009ExitCare? Patient Information ?2015 [employer]. This information is not intended to replace [...] reduce the incidence of recurrences.? Only take jnoh-zlv-vpolzfh or prescription medicines for pain, discomfort, or [...] Revised: 12/17/2013 Document Reviewed: 09/17/2013ExitCare? Patient Information ?2015 [employer]. This information is not intended to replace advice given to you by your health care provider. Make sure you discuss any questions you have with your health care provider.JUAN JOSE Michele JEREMY A , have received the following patient education materials/instructions and have verbalized understanding: Patient Education Materials: Flank Pain, Xhgm-up-Nnpg; Urine Strainer; Kidney Stones Follow-up Instructions: With: Address: When: Fito Fortune [address] [place] [address] [facility] () Within 5 to 7 days Comments: Call physician if symptoms worsen Return to ED if symptoms worsen With Dr. Fortune regarding her kidney stones. With: Address: When: [place] [address] [facility] () In 3 days 08/21/2017 Comments: Call physician if symptoms worsen Return to ED if symptoms worse Prescriptions: [dicyclomine (Bentyl 20 mg Tab)] [ondansetron (Zofran ODT 8 mg Tab-Dis)] [orphenadrine (orphenadrine 100 mg ER Tab)] Patient Signature ____ Date Clinician/Nurse Signature Date 08/18/17 14:41:01 Normal [facility] Hep Func Panelon 08-18-2017 Bilirubin (direct) UT Abnormal 0.1-0.9 [facility] Comment on above: Result Comment: Resu lt verified by Discern Rule. Performed result UT (Unable to Calculate) was sent as an Alpha code due the inability to calculate a valid numeric value. Performed By: #### 2 208402, 2597506, 3711420, 2047999, 34089131, 6561706 ####[address] [place] [address] Alanine aminotransferase (ALT) 24 Int._Unit/L Normal 6-46 [facility] Comment on above: Performed By: #### 2 549301, 1140788, 3835306, 7125044, 19464590, 4307737 ####[facility] [address] [place] [address] Albumin 4.1 g/dL Normal 3.3-5.0 [facility] Comment on above: Performed By: #### 2 954305, 1900647, 7203177, 5833226, 34799857, 9713461 ####[facility] [address] [place] [address] Albumin 1.2 g/dL Normal 1.1-2.2 [facility] Comment on above: Performed By: #### 2 303192, 8611672, 5686381, 3652088, 38703473, 2023313 ####[facility] [address] [place] [address] Alkaline phosphatase (ALP) 60 Int._Unit/L Normal 21-98 [facility] Comment on above: Performed By: #### 2 484375, 2723751, [id number], [id number], [id number], [id number] ####[address] [place] [address] Aspartate aminotransferase (AST) 21 Int._Unit/L Normal 5-43 [facility] Comment on above: Performed By: #### 2 [id number], [id number], [id number], [id number], [id number], [id number] ####[address] [address] Bilirubin (direct) mg/dL Normal 0.1-0.4 [facility] Comment on above: Performed By: #### 2 [id number], 1946337, 2332911, 2997342, [id number], [id number] ####[address] [address] Bilirubin (total) 0.4 mg/dL Normal 0.0-1.1 [facility] Comment on above: Performed By: #### 2 199843, 8551211, 8684605, 5024189, [id number], 0476005 ####[address] [address] Globulin 3.5 g/dL Normal 1.4-4.0 [facility] Comment on above: Performed By: #### 2 764229, 3368826, 1775355, 4701654, [id number], [id number] ####[address] [place] [address] Protein 7.6 g/dL Normal 6.0-7.8 [facility] Comment on above: Performed By: #### 2 956940, 1381328, 4075679, 9534996, [id number], 8561122 ####[address] [place] [address] Lipase Levelon 08-18-2017 Lipase 28 unit/L Normal 13-58 [facility] Comment on above: Performed By: #### 2 690767, 8264381, 6647925, 4964677, [id number], [id number] ####[facility] [address] [place] [address] UA With Cult Reflexon 2017 Bilirubin Ql (U) Negative Normal Negative [facility] Comment on above: Performed By: #### 1 [id number] ####[address] [address] COLOR:TYPE:PT:URINE:NO M:AUTO YELLOW Normal Yellow [facility] Comment on above: Performed By: #### 1 [id number] ####[address] [address] Erythrocytes (RBC) 0-3 Normal 0-3 [facility] Comment on above: Performed By: #### 1 [id number] ####[address] [address] GLUCOSE:MCNC:PT:URINE: QN:TEST STRIP Negative Normal Negative [facility] Comment on above: Performed By: #### 1 [id number] ####[address] [address] KETONES:MCNC:PT:URINE: QN:TEST STRIP Negative Normal Negative [facility] Comment on above: Performed By: #### 1 [id number] ####[address] [address] LEUKOCYTES:PRTHR:PT:UR INE:ORD:AUTOMATED Negative Normal Negative [facility] Comment on above: Performed By: #### 1 [id number] ####[facility] [address] [place] [address] UA Spec Desc Clean Catch Normal [facility] Comment on above: Performed By: #### 1 [id number] ####[address] [address] Urine, clarity CLEAR Normal Clear [facility] Comment on above: Performed By: #### 1 [id number] ####[address] [address] Urine, hemoglobin presence Negative Normal Negative [facility] Comment on above: Performed By: #### 1 [id number] ####[facility] [address] [place] [address] Urine, leukocytes in sedmiment 0-5 Normal 0-5 [facility] Comment on above: Performed By: #### 1 [id number] ####[facility] [address] [place] [address] Urine, mucus presence in sediment TRACE Normal [facility] Comment on above: Performed By: #### 1 [id number] ####[facility] [address] [place] [address] Urine, nitrite presence Negative Normal Negative [facility] Comment on above: Performed By: #### 1 [id number] ####[facility] [address] [facility] [address] Urine, pH 6.0 [pH] Invalid Interpretation Code 5.0-9.0 [facility] Comment on above: Performed By: #### 1 [id number] ####[facility] [address] [place] [address] Urine, protein Negative Normal Negative [facility] Comment on above: Performed By: #### 1 [id number] ####[facility] [address] [place] [address] Urine, specific gravity 1.025 Invalid Interpretation Code 1.005-1.03 0 [facility] Comment on above: Performed By: #### 1 [id number] ####[facility] [address] [place] [address] Urine, squamous cells in sediment 0-2 Normal 0-2 [facility] Comment on above: Performed By: #### 1 [id number] ####[facility] [address] [place] [address] Urine, urobilinogen 0.2 {Jo'U}/dL Normal 0.0-1.0 [facility] Comment on above: Performed By: #### 1 [id number] ####[facility] [address] [facility] [place] [address] eGFRon 08-18-2017 eGFR (black) mL/min/{1.73_m2} Normal >=59 [facility] Comment on above: Order Comment: Order added by Discern Expert. Result Comment: eGFR is race adjusted. AA=. Performed By: #### 2 188752, 8009069, 1706205, 6272416, [id number], [id number] ####[facility] [address] [place] [address] eGFR (non-black) mL/min/{1.73_m2} Normal >=59 [facility] Comment on above: Order Comment: Order added by Discern Expert. Result Comment: Mixed Signal Design Engineer yvonne kidney disease could be indicated at eGFR's of less than 60 mL/min/1.73m2. Kidney failure is indicated at less than 15 mL/min/1.73m2. Performed By: #### 2 [id number], 9987953, 6318807, 2517633, [id number], [id number] ####[facility] [address] [place] [address] Vital Signs Date Time Vital Sign Value Performing Clinician Facility 02-01-2023 04:25-0400 Diastolic blood pressure 86 mm[Hg] DO Wallace Luana Work Phone: [facility] 02-01-2023 04:25-0400 Heart rate 74 /min DO Wallace Luana Work Phone: [facility] 02-01-2023 04:25-0400 Respiratory rate 18 /min DO Wallace Luana Work Phone: [facility] 02-01-2023 04:25-0400 SaO2% (BldA) [Mass fraction] 98 % DO Wallace Luana Work Phone: [facility] 02-01-2023 04:25-0400 Systolic blood pressure 136 mm[Hg] DO Wallace Luana Work Phone: [facility] 01-31-2023 23:51-0400 Body height 175.26 cm DO Wallace Luana Work Phone: [facility] 01-31-2023 23:51-0400 Body temperature 98.5 [degF] DO Wallace Craft Work Phone: [facility] 01-31-2023 23:51-0400 Body weight 104.32 kg DO Wallace Craft Work Phone: [facility] 11-09-2022 14:50-0400 Diastolic blood pressure 64 mm[Hg] Fara López MD Work Phone: [facility] [employer] 11-09-2022 14:50-0400 Heart rate 74 /min Fara López MD Work Phone: [facility] [employer] 11-09-2022 14:50-0400 Respiratory rate 20 /min Fara López MD Work Phone: [facility] [employer] 11-09-2022 14:50-0400 SaO2% (BldA) [Mass fraction] 96 % Fara López MD Work Phone: [facility] [employer] 11-09-2022 14:50-0400 Systolic blood pressure 120 mm[Hg] Fara López MD Work Phone: [facility] [employer] 11-09-2022 14:20-0400 Body temperature 97.81 [degF] Fara López MD Work Phone: [facility] [employer] 11-09-2022 13:00-0400 Body height 175.3 cm Fara López MD Work Phone: [facility] [employer] 11-09-2022 13:00-0400 Body mass index (BMI) [Ratio] 34.7 kg/m2 Fara López MD Work Phone: [facility] [employer] 11-09-2022 13:00-0400 Body weight 106.59 kg Fara López MD Work Phone: [facility] [employer] 11-02-2022 17:21-0400 Diastolic blood pressure 72 mm[Hg] DO Wallace Luana Work Phone: [facility] 11-02-2022 17:21-0400 Heart rate 76 /min DO Wallace Luana Work Phone: [facility] 11-02-2022 17:21-0400 Respiratory rate 18 /min DO Wallace Luana Work Phone: [facility] 11-02-2022 17:21-0400 SaO2% (BldA) [Mass fraction] 99 % DO Wallace Luana Work Phone: [facility] 11-02-2022 17:21-0400 Systolic blood pressure 130 mm[Hg] DO Wallace Luana Work Phone: [facility] 11-02-2022 13:31-0400 Body height 175.26 cm DO Wallace Luana Work Phone: [facility] 11-02-2022 13:31-0400 Body temperature 98.6 [degF] DO Wallace Luana Work Phone: [facility] 11-02-2022 13:31-0400 Body weight 111 kg DO Wallace Luana Work Phone: [facility] 10-30-2022 06:05-0400 Diastolic blood pressure 67 mm[Hg] DO Wallace Luana Work Phone: [facility] 10-30-2022 06:05-0400 Systolic blood pressure 139 mm[Hg] DO Wallace Luana Work Phone: [facility] 10-30-2022 06:02-0400 Heart rate 65 /min DO Wallace Luaan Work Phone: [facility] 10-30-2022 06:02-0400 Respiratory rate 18 /min DO Wallace Luana Work Phone: [facility] 10-30-2022 06:02-0400 SaO2% (BldA) [Mass fraction] 98 % DO Wallace Luana Work Phone: [facility] 10-30-2022 02:48-0400 Body height 175.26 cm DO Wallace Luana Work Phone: [facility] 10-30-2022 02:48-0400 Body temperature 97.6 [degF] DO Wallace Craft Work Phone: [facility] 10-30-2022 02:48-0400 Body weight 106.59 kg DO Wallace Craft Work Phone: [facility] 05-18-2022 18:31-0500 Diastolic blood pressure 72 mm[facility]Hg[facility] 18:31-0500 Heart rate 70 /min Wallace [facility] 05-18-2022 18:31-0500 Respiratory rate 16 /min Wallace [facility] 05-18-2022 18:31-0500 SaO2% (BldA) [Mass fraction] 98 % [facility] 05-18-2022 18:31-0500 Systolic blood pressure 121 mm[Hg] Wallace [facility] 05-18-2022 12:57-0500 Body height 175.2 cm Wallace [facility] 05-18-2022 12:57-0500 Body weight 118.1 kg Wallace [facility] 03-27-2022 17:10-0500 Body height 177.8 cm Azul Langford Other [facility] Other 03-27-2022 17:10-0500 Body mass index (BMI) [Ratio] 38.02 kg/m2 Azul Langford Other [employer] Other 03-27-2022 17:10-0500 Body temperature 98.3 [degF] Azul Langford Other [employer] Other 03-27-2022 17:10-0500 Body weight 120.2 kg Azul Langford Other [facility] [facility] Other 03-27-2022 17:10-0500 Respiratory rate 18 /min Azul Langford Other [employer] [facility] Other 03-27-2022 17:10-0500 SaO2% (BldA) [Mass fraction] 98 % Azul Langford Other [facility] [facility] Other 02-01-2022 11:50-0400 Diastolic blood pressure 74 mm[Hg] Karissa Leal MD Work Phone: [facility] 02-01-2022 11:50-0400 Heart rate 64 /min Karissa Leal MD Work Phone: [facility] 02-01-2022 11:50-0400 Respiratory rate 18 /min Karissa Leal MD Work Phone: [facility] 02-01-2022 11:50-0400 SaO2% (BldA) [Mass fraction] 96 % Karissa Leal MD Work Phone: [facility] 02-01-2022 11:50-0400 Systolic blood pressure 123 mm[Hg] Karissa Leal MD Work Phone: [facility] 02-01-2022 10:16-0400 Body height 175.3 cm Karissa Leal MD Work Phone: [facility] 02-01-2022 10:16-0400 Body mass index (BMI) [Ratio] 39.13 kg/m2 Karissa Leal MD Work Phone: [facility] 02-01-2022 10:16-0400 Body temperature 97.2 [degF] Karissa Leal MD Work Phone: [facility] 02-01-2022 10:16-0400 Body weight 120.2 kg Karissa Leal MD Work Phone: [facility] 12-30-2021 17:00-0400 Diastolic blood pressure 79 mm[Hg] Wallace Craft DO Work Phone: [facility] 12-30-2021 17:00-0400 Heart rate 64 /min Wallacenino Craft DO Work Phone: [facility] 12-30-2021 17:00-0400 SaO2% (BldA) [Mass fraction] 95 % Wallace Craft DO Work Phone: [facility] 12-30-2021 17:00-0400 Systolic blood pressure 135 mm[Hg] Wallace Craft DO Work Phone: [facility] [employer] 12-30-2021 13:58-0400 Respiratory rate 16 /min Wallace Craft DO Work Phone: [facility] 12-30-2021 13:07-0400 Body height 175.3 cm Wallace Craft DO Work Phone: [facility] 12-30-2021 13:07-0400 Body mass index (BMI) [Ratio] 38.4 kg/m2 Wallace Craft DO Work Phone: [facility] [employer] 12-30-2021 13:07-0400 Body temperature 98.29 [degF] Wallace Craft DO Work Phone: [facility] 12-30-2021 13:07-0400 Body weight 117.94 kg Wallace Craft DO Work Phone: [facility] [employer] 12-29-2021 11:05-0400 Diastolic blood pressure 67 mm[Hg] DO Paulie Boo Work Phone: [facility] 12-29-2021 11:05-0400 Heart rate 69 /min DO Paulie Boo Work Phone: [facility] 12-29-2021 11:05-0400 Respiratory rate 18 /min DO Paulie Boo Work Phone: [facility] 12-29-2021 11:05-0400 SaO2% (BldA) [Mass fraction] 97 % DO Paulie Boo Work Phone: [facility] 12-29-2021 11:05-0400 Systolic blood pressure 116 mm[Hg] DO Paulie Boo Work Phone: [facility] 12-29-2021 08:27-0400 Body height 173.99 cm DO Paulie Boo Work Phone: [facility] 12-29-2021 08:27-0400 Body weight 128 kg DO Paulie Boo Work Phone: [facility] 12-29-2021 08:25-0400 Body temperature 98.1 [degF] DO Paulie Boo Work Phone: [facility] 10-19-2021 10:15-0400 Body height 177.8 cm Paulie Boo Other [employer] [facility] Other 10-19-2021 10:15-0400 Body mass index (BMI) [Ratio] 39.77 kg/m2 Paulie Rajeev Other [facility] Other 10-19-2021 10:15-0400 Body weight 125.74 kg Paulie Boo Other [facility] Other 10-19-2021 10:15-0400 Diastolic blood pressure 88 mm[Hg] Paulie Boo Other [facility] Other 10-19-2021 10:15-0400 Respiratory rate 18 /min Paulie Rebolledomer Other [facility] Other 10-19-2021 10:15-0400 SaO2% (BldA) [Mass fraction] 98 % Paulie Rebolledomer Other [facility] [facility] Other 10-19-2021 10:15-0400 Systolic blood pressure 132 mm[Hg] Paulie Rajeev Other [facility] [facility] Other 09-07-2021 10:00-0400 Body height 177.8 cm Paulie Rebolledomer Other [employer] [facility] Other 09-07-2021 10:00-0400 Body mass index (BMI) [Ratio] 40.39 kg/m2 Paulie Rebolledomer Other [facility] [facility] Other 09-07-2021 10:00-0400 Body temperature 98.1 [degF] Paulie Rebolledomer Other [facility] [facility] Other 09-07-2021 10:00-0400 Body weight 127.69 kg Paulie Rajeev Other [facility] [facility] Other 09-07-2021 10:00-0400 Diastolic blood pressure 84 mm[Hg] Paulie Rajeev Other [facility] [facility] Other 09-07-2021 10:00-0400 Respiratory rate 18 /min Paulie Rajeev Other [facility] [facility] Other 09-07-2021 10:00-0400 SaO2% (BldA) [Mass fraction] 96 % Paulie Rebolledomer Other [facility] [facility] Other 09-07-2021 10:00-0400 Systolic blood pressure 124 mm[Hg] Paulie Boo Other [facility] [facility] Other 03-28-2021 14:30-0500 Body height 177.8 cm Sam Olexa Other [facility] [facility] Other 03-28-2021 14:30-0500 Body mass index (BMI) [Ratio] 38.02 kg/m2 Sam Olexa Other [facility] Other 03-28-2021 14:30-0500 Body weight 120.2 kg Sam Olexa Other [facility] Other 02-22-2021 12:15-0400 Body height 177.8 cm Sam Olexa Other [facility] [facility] Other 02-22-2021 12:15-0400 Body mass index (BMI) [Ratio] 38.02 kg/m2 Sam Olexa Other [facility] Other 02-22-2021 12:15-0400 Body weight 120.2 kg Sam Olexa Other [facility] Other 02-22-2021 12:15-0400 Respiratory rate 18 /min Sam Olexa Other [facility] Other 02-22-2021 12:15-0400 SaO2% (BldA) [Mass fraction] 98 % Sam Olexa Other [facility] Other 01-25-2021 09:45-0400 Body height 177.8 cm Sam Olexa Other [facility] Other 01-25-2021 09:45-0400 Body mass index (BMI) [Ratio] 38.02 kg/m2 Sam Sheriff Other [facility] Other 01-25-2021 09:45-0400 Body weight 120.2 kg Sam Sheriff Other [facility] Other 05-21-2019 12:05-0500 BP Diastolic 84 mm[Hg] [facility] 05-21-2019 12:05-0500 BP Systolic 137 mm[Hg] [facility] 05-21-2019 12:05-0500 Pulse (Heart Rate) 78 /min [facility] 05-21-2019 12:05-0500 Pulse Oximetry 96 % [facility] 05-21-2019 12:05-0500 Respiratory Rate 18 /min [facility] 05-21-2019 11:02-0500 BMI (Body Mass Index) 39.9 kg/m2 [facility] 05-21-2019 11:02-0500 Body Temperature 98.3 [degF] [facility] 05-21-2019 11:02-0500 Body weight 122.46 kg [facility] 05-21-2019 11:02-0500 Height 175.26 cm [facility] 04-09-2019 11:53-0500 BP Diastolic 74 mm[Hg] [facility] 04-09-2019 11:53-0500 BP Systolic 112 mm[Hg] [facility] 04-09-2019 11:53-0500 Pulse (Heart Rate) 70 /min [facility] 04-09-2019 11:53-0500 Pulse Oximetry 98 % [facility] 04-09-2019 11:53-0500 Respiratory Rate 18 /min [facility] 04-09-2019 10:11-0500 BMI (Body Mass Index) 38.7 kg/m2 [facility] 04-09-2019 10:11-0500 Body Temperature 98.8 [degF] [facility] 04-09-2019 10:11-0500 Body weight 122.47 kg [facility] 04-09-2019 10:0500 Height 177.8 cm [facility] Encounters Encounter Date Encounter Type Care Provider Facility Start: 04-12-2023 [facility] Start: 04-04-2023 [facility] Start: 03-31-2023 End: 03-31-2023 Emergency department patient [facility] Start: 02-01-2023 End: 02-01-2023 Emergency department patient visit Sam Mccoy Jr Facility:[facility] Start: 01-31-2023 End: 02-01-2023 Emergency department patient visit DO Wallace Craft Work Phone: [facility] Work Phone: Start: 11-09-2022 End: 11-09-2022 ambulatory FARA Pedraza [facility] Start: 11-09-2022 End: 11-09-2022 Subsequent hospital visit by physician Fara López MD Work Phone: [facility] Start: 11-02-2022 End: 11-02-2022 Emergency department patient visit Ana Maria Loera Facility:[facility] Start: 11-02-2022 End: 11-02-2022 Emergency department patient visit DO Wallace Craft Work Phone: [facility] Work Phone: Start: 10-30-2022 End: 10-30-2022 Emergency department patient visit Sam Mccoy Jr Facility:[facility] Start: 10-30-2022 End: 10-30-2022 Emergency department patient visit DO Wallace Craft Work Phone: [facility] Work Phone: Start: 10-23-2022 End: 10-23-2022 ambulatory FARA Sales [facility] Start: 10-10-2022 End: 10-13-2022 ambulatory FARA Sales [facility] Start: 10-06-2022 End: 10-09-2022 Evaluation and management of inpatient WALLACE CRAFT [facility] Start: 06-15-2022 ambulatory [facility] Start: 05-18-2022 End: 05-18-2022 Emergency department patient visit Tyler Mendo[facility] 10 Start: 05-18-2022 ambulatory [facility] Start: 04-13-2022 ambulatory [facility] Start: 03-27-2022 End: 03-27-2022 ambulatory Azul Langford Other [facility] Other Start: 03-27-2022 Office outpatient visit 15 minutes Azul Langford [facility] Start: 02-01-2022 End: 02-01-2022 Subsequent hospital visit by physician Brock Leal MD Work Phone: [facility] Comment on above: Colon cancer screeni ng Start: 12-30-2021 End: 12-30-2021 Emergency department patient visit Wallace Craft DO Work Phone: [facility] ED Comment on above: Flank pain (Primary Dx) Start: 12-29-2021 End: 12-29-2021 Emergency department patient visit DO Paulie Boo Work Phone: [facility] Start: 10-19-2021 End: 10-19-2021 ambulatory Paulie Boo Other [facility] Other Start: 10-19-2021 Office outpatient visit 25 minutes Paulie Boo [facility] Start: 10-13-2021 End: 10-13-2021 Patient encounter procedure DO Paulie Boo Work Phone: [facility] [place] Start: 09-07-2021 End: 09-07-2021 ambulatory Paulie Boo Other [facility] [facility] Other Start: 09-07-2021 Office outpatient visit 25 minutes Paulie Boo [facility] Start: 04-18-2021 End: 04-18-2021 ambulatory Sam Olexa Other [facility] Other Start: 04-18-2021 Telephone encounter Sam Olexa [facility] Start: 03-30-2021 End: 03-30-2021 ambulatory Sam Olexa Other [facility] Other Start: 03-30-2021 Telephone encounter Sam Olexa [facility] Start: 03-28-2021 End: 03-28-2021 ambulatory Sam Olexa Other [facility] Other Start: 03-28-2021 Office outpatient visit 25 minutes Sam Olexa [facility] Start: 02-22-2021 Office outpatient visit 15 minutes Sam Olexa [facility] Start: 02-03-2021 Telephone encounter Sam Olexa [facility] Start: 02-01-2021 Office outpatient visit 15 minutes Sam Olexa [facility] Start: 01-31-2021 Telephone encounter Sam Olexa [facility] Start: 01-25-2021 Office outpatient visit 25 minutes Sam Olexa [facility] Start: 05-21-2019 End: 05-21-2019 Admission to day surgery [facility] Start: 04-09-2019 End: 04-09-2019 Admission to day surgery [facility] Start: 01-01-2019 End: 01-01-2019 Patient encounter procedure [facility] Facility: Start: 12-26-2018 End: 12-26-2018 Patient encounter procedure DOCTOR [facility] Facility: Start: 07-31-2018 End: 07-31-2018 Admission to day surgery Miller Antoniokenneth [facility] Start: 10-15-2017 End: 10-16-2017 Ambulatory Miller Bazan Facility:[id number] Start: 08-18-2017 End: 08-18-2017 Emergency department patient visit Maddy Rebolledo Facility:[facility] Procedures Date Procedure Procedure Detail Performing Clinician Start: 11-02-2022 CT of abdomen and pe lvis without contrast DO Wallace Craft Work Phone: Start: 10-30-2022 Urine culture DO Vanessa hinkle Luana Work Phone: Start: 10-30-2022 CT of abdomen and pe lvis without contrast DO Wallace Craft Work Phone: Start: 02-01-2022 SCANNED COLONOSCOPY REPORT Brock Leal MD Work Phone: Start: 02-01-2022 Colonoscopy Elisa segal MD Work Phone: Start: 12-30-2021 Ct abdomen & pelvis w/contrast material [employer] Work Phone: Start: 12-30-2021 Comprehensive metabo lic panel [employer] Work Phone: Start: 12-30-2021 Drug tst prsmv instr mnt chem analyzers pr date [employer] Work Phone: Start: 12-30-2021 Urnls dip stick/tabl et rgnt auto w/o microscopy [employer] Work Phone: Start: 12-29-2021 CT of abdomen and pe lvis without contrast DO Paulie Boo Work Phone: Start: 05-21-2019 Injection of sacroil iac joint Miller Bunn Start: 04-09-2019 Local anesthetic fac et joint nerve block Miller Bunn Plan of Treatment Date Care Activity Detail Author Start: 02-02-2032 Screening for malign ant neoplasm of colon [facility] Start: 11-12-2030 DTaP/Tdap/Td vaccine (2 - Td or Tdap) DTaP/Tdap/Td vaccine (2 - Td or Tdap) [facility] Start: 02-01-2027 Screening for malign ant neoplasm of colon [facility] Start: 07-15-2023 Depression Monitoring Depression Mon itoring [facility] Start: 02-08-2023 End: 02-08-2023 Patient encounter procedure 02/08/2023 Office Visit Urology Fara López MD [address] [place] [address] [facility] Start: 02-01-2023 Bacteria identified in Blood by Culture [facility] Start: 02-01-2023 CT Abdomen and Pelvi s WO contrast [facility] Start: 02-01-2023 CT of abdomen and pe lvis without contrast CT abdomen pelvis wo con [facility] Start: 01-25-2023 End: 01-25-2023 Patient encounter procedure 01/25/2023 Office Visit Family Medicine Gladys Cortez, [employer] [address] [place] [address] [facility] Start: 12-22-2022 Depression Monitoring Depression Mon itoring [facility] Start: 12-22-2022 Depression Screen Depression Screen [facility] Start: 11-28-2022 Influenza vaccination Flu vaccine (# 1) [facility] Start: 11-09-2022 End: 11-09-2022 Cysto w/simple removal stone & stent CYSTOSCOPY STENT REMOVAL Kidney stone 11/09/2022 2:04 PM EDT [facility] Start: 11-02-2022 Bacteria identified in Urine by Culture [facility] Start: 10-30-2022 Bacteria identified in Urine by Culture Urine Culture [facility] Start: 10-30-2022 CT Abdomen and Pelvi s WO contrast [facility] Start: 10-30-2022 CT of abdomen and pe lvis without contrast CT abdomen pelvis wo con [facility] Start: 05-18-2022 End: 05-19-2023 fentaNYL Injectable 50 microgram IntraVenous Push Once ; (SUBLIMAZE)DOSE = 50 microgram(s) IntraVenous Push Once, PRN Pain - Severe (7-10) Start: 18-May-2022 End: 18-May-2023 Ordered: 18-May-2022 [facility] Start: 02-06-2022 End: 02-06-2022 Patient encounter procedure 02/06/2022 Office Visit [facility] [address] [address] [facility] Start: 02-01-2022 End: 02-01-2022 Admission to same day surgery center 02/01/2022 Surgery Endoscopy rBock Leal MD [address] [place] [address] COLORECTAL CANCER SCREENING, NOT HIGH RISK [facility] [place] Comment on above: COLORECTAL CANCER SC REENING, NOT HIGH RISK Start: 02-01-2022 End: 02-01-2022 Colon ca scrn not hi rsk ind [facility] Start: 02-01-2022 Subsequent hospital visit by physician 02/01/2022 Hospital Encounter Endoscopy Brock Leal MD [address] [place] [address] [facility] [place] Start: 01-06-2022 End: 01-06-2022 Patient encounter procedure 01/06/2022 Office Visit [facility], [address] [address] [facility] Start: 12-29-2021 Influenza vaccination Flu vaccine (# 1) [facility] Start: 11-28-2021 Influenza vaccination Flu vaccine (# 1) [facility] Start: 05-16-2021 COVID-19 Vaccine (6 - Booster for Moderna series) COVID-19 Vaccine (6 - Booster for Moderna series) [facility] Start: 08-24-2019 Screening for malign ant neoplasm of colon [facility] Start: 2014 Lipid panel Lipids [facility] Start: 1992 Hepatitis C screening Hepatitis C sc reen [facility] Start: 1989 HIV screening HIV screen [facility] Bacteria identified in Blood by Culture [facility] End: 11-09-2022 Glucose [Mass/volume] in Serum or Plasma POCT Glucose Point of Care Testing Routine One Time for 1 Occurrences starting 11/09/2022 until 11/09/[address] [facility] [employer] Comment on above: One Time for 1 Occur rences starting 11/09/2022 until 11/09/2022 End: 02-01-2022 INITIATE PACU OXYGEN THERAPY PROTOCOL Initiate PACU Oxygen Therapy Protocol Respiratory Care Routine Continuous until discontinued starting 02/01/2022 [facility] Work Phone: Comment on above: Continuous until dis continued starting 02/01/2022 End: 11-09-2022 INITIATE PACU OXYGEN THERAPY PROTOCOL Initiate PACU Oxygen Therapy Protocol Respiratory Care Routine Continuous until discontinued starting 11/09/[address] [facility] [employer] Work Phone: Comment on above: Continuous until dis continued starting 11/09/2022 Oxygen therapy [Mini mum Data Set] Initiate Oxygen Therapy Protocol Respiratory Care Routine As Needed until discontinued starting 11/09/[address] [facility] [employer] Comment on above: As Needed until disc ontinued starting 11/09/2022 Oxygen therapy [Mini mum Data Set] Initiate Oxygen Therapy Protocol Respiratory Care Routine As Needed until discontinued starting 11/09/[address] [facility] [employer] Comment on above: As Needed until disc ontinued starting 11/09/2022 Patient Education [facility] Patient referral [facility] End: 12-30-2021 POCT CREATININE POCT CREATININE Point of Care Testing Routine One Time for 1 Occurrences starting 12/30/2021 until 12/30/2021 [facility] Work Phone: Comment on above: One Time for 1 Occur rences starting 12/30/2021 until 12/30/2021 Spirometry panel Incentive arabella metry Respiratory Care Routine Every 2hr while awake until discontinued starting 11/09/[address] [facility] [employer] Comment on above: Every 2hr while awak e until discontinued starting 11/09/2022 Surgical Pathology Surgical Path ology Lab Routine Colon cancer screening Release Upon Ordering for 1 Occurrences starting 02/01/2022 [facility] Work Phone: Comment on above: Release Upon Orderin g for 1 Occurrences starting 02/01/2022 Immunizations Immunization Date Immunization Notes Care Provider Fa [facility] 02-16-2022 Influenza, injectabl e, Madin Chrissy Canine Kidney, preservative free, quadrivalent Fara López MD Work Phone: [facility] 03-21-2021 COVID-19, PFIZER PURPLE top, DILUTE for use, (age 12 y+), 30mcg/0.3mL Fara López MD Work Phone: [facility] 02-01-2021 Kenalog -40 mg Sam Olexa Other [facility] Other 01-14-2021 influenza, injectabl e, quadrivalent, preservative free Fara López MD Work Phone: [facility] 01-14-2021 influenza, seasonal, injectable Paulie Boo Other [facility] Other 11-12-2020 tetanus toxoid, reduced diphtheria toxoid, and acellular pertussis vaccine, adsorbed Fara López MD Work Phone: [facility] 05-26-2020 COVID-19 Vaccine Moderna - Documentation Purposes Only Paulie Boo Other [facility] Other 04-28-2020 COVID-19 Vaccine Moderna - Documentation Purposes Only Paulie Boo Other [facility] 02-03-2020 influenza, injectabl e, quadrivalent, preservative free Fara López MD Work Phone: [facility] 03-17-2019 Kenalog -40 mg Sam Olexa Other [facility] Other 01-06-2019 Influenza, injectabl e, Madin Kennard Canine Kidney, preservative free, quadrivalent Fara López MD Work Phone: [facility] 12-26-2017 influenza, injectabl e, quadrivalent, preservative free Fara López MD Work Phone: [facility] 02-14-2017 Influenza, injectabl e, Madin Kennard Canine Kidney, preservative free, quadrivalent Fara López MD Work Phone: [facility] 01-20-2016 seasonal influenza, intradermal, preservative free Fara López MD Work Phone: [facility] 03-30-2014 KENALOG - 10 mg Sam Olexa Other [facility] Other 09-24-2009 tetanus toxoid, reduced diphtheria toxoid, and acellular pertussis vaccine, adsorbed Sam Olexa Other [facility] Other 02-19-2008 influenza virus vaccine, unspecified formulation Fara López MD Work Phone: [facility] 05-10-2004 TD(adult) unspecifie d formulation Fara López MD Work Phone: [facility] 03-08-1999 hepatitis B vaccine, adult dosage Fara López MD Work Phone: [facility] 03-08-1999 influenza virus vaccine, whole virus Fara López MD Work Phone: [facility] 08-31-1998 hepatitis B vaccine, adult dosage Fara López MD Work Phone: [facility] 07-27-1998 hepatitis B vaccine, adult dosage Fara López MD Work Phone: [facility] Payers Date Payer Category Payer Self-pay [id number] 2021 Unknown [id number] 2021 [facility] [id number] 2017 Unknown 1974 Unknown [id number] 2.16.84 0.1.588827.3.579.2.593 1974 Unknown [id number] 2.16.84 0.1.541641.3.579.2.593 1974 Unknown [id number] 2.16.8 40.1.660124.3.579.2.1068 1974 Unknown [id number] 2.16.8 40.1.898673.3.579.2.182 1974 Unknown [id number] 2.16.8 40.1.350613.3.579.2.182 1974 Unknown [id number] 2.16.8 40.1.658261.3.579.2.182 1974 Unknown [id number] 2.16.8 40.1.167879.3.579.2.182 1974 Unknown [id number] 2.16.8 40.1.894569.3.579.2.182 1974 Unknown [id number] 2.16.8 40.1.984097.3.579.2.182 1974 Unknown [id number] 2.16.8 40.1.302931.3.579.2.182 1974 Unknown [id number] 2.16.8 40.1.782754.3.579.2.182 1974 Unknown [id number] 2.16.84 0.1.591803.3.579.2.1282 1974 Unknown [id number] 2.16.84 0.1.333737.3.579.2.1282 1959 Unknown [id number] Unknown [id number] Unknown [id number] 2.16.8 40.1.806450.19 Unknown [id number] 2. 16.840.1.928105.19 Unknown [id number] 2.16.8 40.1.626465.3.579.2.531 Unknown [id number] 2.16.8 40.1.989973.3.579.2.531 Unknown [id number] 2.16.8 40.1.952241.3.579.2.531 Social History Date Type Detail Facility Start: 05-21-2019 End: 12-22-2021 Tobacco smoking status [facility] Never smoked tobacco (finding) [facility] Start: 1975 Sex Assigned At Male [facility] Sex Assigned At Sex Assigned At [facility] Other Start: 12-22-2021 Tobacco use and exposure Smokeless tobacco non-user [employer] Phone: Start: 12-30-2021 End: 11-09-2022 Alcohol intake Current drinker of alcohol (finding) [employer] Phone: Start: 09-17-2014 History SDOH Alcohol Comment RARE [employer] Phone: Start: 12-21-2021 End: 07-14-2022 History SDOH Physical Activity DPW 5 [employer] Phone: Start: 12-21-2021 End: 07-14-2022 History SDOH Physical Activity MPS 1 [employer] Phone: Start: 12-21-2021 End: 07-14-2022 History SDOH IPV Fear 2 [employer] Phone: Start: 1975 Sex Assigned At Not on file [employer] Phone: Start: 12-20-2021 End: 02-01-2022 Exposure to SARS-CoV-2 (event) Not sure [employer] Phone: Tobacco smoking consumption unknown [facility] Start: 02-01-2023 Tobacco smoking status NHIS Ex-smoker (finding) [facility] NEGATED: Highlighted rowStart: NINF History of tobacco use Passive smoker [facility] Work Phone: Medical Equipment Procedure Code Equipment Code Equipment Origin al Text Equipment Identifier Dates Arthroscopy, shoulder Tendon/ligament bone anchor, non-bioabsorbable [id number] FDA Start: 04-20-2021 Stent Uret 6fr L26cm Polymer Blend Ph Free Coat Gradual Tapr - [id number] Start: 10-06-2022 Goals Date Patient Goal Desired Activity /State Clinical Notes 09-14-2020 to 11-09-2022 Lina Hung RN - 11/09/2022 2:52 PM EDTDischarge Instructions Note Date & Type Note Facility 11-09-2022 History of Presen t illness Narrative Disch inst given with presc verb understanding at side up to bathroom voided QS pink tinged urine. documented in this encounter [facility] 11-09-2022 Hospital Discharg e instructions Lina Hung RN - 11/09/2022 2:21 PM EDT Images from the original note were not included. 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. [facility] 03-27-2022 Evaluation note Encounter Date Diagnosis Assessment [...] was printed, Acute bronchitis material was printed [facility] Other 10-05-2022 Hospital Discharge instructions* Discharge Instructions* [...] sent through Care Everywhere. * Colonoscopy: Post-op (Russian) * Colon Polyps (Russian) * Diverticulosis (Russian) * Coronavirus Disease (COVID-19): General Info (Russian) documented in this encounterBON [email or web address] Phone: [phone] 521-843106-22-2022 Evaluation note* Encounter Date Diagnosis Assessment Notes [...] Sep, Medication monitoring encounter (ICD-10 - Z51.81) [facility] Other 05-11-2022 Evaluation note* Encounter Date Diagnosis [...] August, Medication monitoring encounter (ICD-10 - Z51.81) [email or web address] [employer] Other 01-04-2022 NotePatient Education Materials Follows: [id number] Evaluation note* Encounter Date Diagnosis Assessment Notes Treatment Notes Treatment Clinical Notes Mar, Other specified postprocedural states (ICD-10 - Z98.890) [facility] [employer] Other 12-02-2021 NotePatient Education Materials Follows: [id number] Evaluation note* Encounter Date Diagnosis Assessment Notes Treatment Notes Treatment Clinical Notes Feb, Strain of unspecified muscles, fascia and tendons at forearm level, right arm, initial encounter (ICD-10 - S56.911A) Feb, Superior labrum qzynjzze-lw-ovkxhv ior (SLAP) tear of right shoulder (ICD-10 [...] of infection, hardware pullout, cuff repair failure, ocean transportation intermediary pain and stiffness are well known problems [...] right shoulder, initial encounter (ICD-10 - S40.011A) [facility] Other 10-26-2021 NotePatient Education Materials Follows: [id number] Evaluation note* Encounter Date Diagnosis Assessment Notes [...] - S40.011A) We will continue to await [facility] approval for further treatment. Continue gentle motion/strengthe annmarie. Call with questions/concer ns. If he is not progressing we will need to consider diagnostic arthroscopy and potential repairs as necessary. Unable to obtain adequate information since we are unable to obtain MRI. Jan, Other CONTINUE OFF WORK [facility] Other 10-05-2021 Evaluation note* Encounter Date Diagnosis [...] left forearm, initial encounter (ICD-10 - S50.12XA) [facility] Other 09-28-2021 Evaluation note* Encounter Date Diagnosis [...] left forearm, initial encounter (ICD-10 - S50.12XA) [facility] Other 09-22-2021 NotePatient Education Materials Follows: [facility] [id number] Note [id number]#1.00[facility]08-25-2021 NotePatient Education Materials Follows:[facility] [id number] NotePatient Education Materials Follows:[facility] [id number] NotePatient Education Materials Follows:[facility]onRvnxnvfv51-04-2035 NotePatient Education Materials Follows:[facility] AvonIgvwctfq44-68-0549 NoteEducation Materials Elastic Bandage and RICE Therapy [...] limityour activities and whether you should start vcpkr-zk-akpbuq exercises for your injury. Ice Ice your [...] provider. Document Revised: 01/04/2018 Document Reviewed: 01/04/2018 Global Registry of [employer]itories Patient Education ? 2020 [employer]. Dermatology Abrasion An abrasion is a cut [...] bleeding, or it may (more content not included)...[facility] [id number] [id number] 10-27-2020 [facility] SURGERY Clinical Discharge Summary PERSON INFORMATION Name CARMELITA EASTMAN Age 45 Years 1975 Sex MALE Language Russian PCP Misbah Donahue Marital Status Med Service Pain Management Surgery Acct# Arrival 10/27/2020 09:18:00 Visit Reason low back pain Acuity LOS 028 20:12 Address: [facility] [place] [address] Comment: PROVIDER INFORMATION VITALS INFORMATION Vital Sign [...] DIAGNOSIS Chronic back pain; Lumbar spondylosis Comment: SALVATORE SHERMAN [facility]06-30-2021 NotePatient: CARMELITA EASTMAN Age: 45 years [...] recorded. Procedure history: Facet joint nerve block ([id number]) on 10/27/2020 at 45 Years. Comments: 10/27/2020 9:10 Araseli Lord BILATERAL LUMBAR MEDIAL BRANCH BLOCK T12,L1,L2,L3 Epidural steroid injection ([id number]) on 09/15/2020 at 45 Years. Comments: 09/15/2020 10:13 Araseli Lord CAUDAL EPIDURAL STEROID INJECTION Stimulator, device ([id number]) on 04/30/2014 at 38 Years. Comments: 09/22/2020 9:08 BARTT - Swapna Arana stimulator low back placed 2015 Fusion of L4,L5,S1 fused ([id number]) on 04/30/2007 at 31 Years. Cage ([id number]). Comments: 09/22/2020 9:08 BARTSwapna Curry bilateral fused cage Social History Social & [...] Heart Rate Peripheral 67 bpm (OCT 27 10:19) Resp Rate 20 br/min (OCT 27 10:19) SBP 120 mmHg (OCT 27 10:) DBP 77 mmHg (OCT 27 10:) Weight 125.70 kg (OCT 27 10:19) Height 175.26 cm (OCT 27 10:19) , Measurements from flowsheet : Measurements 10/27/2020 10:19 EDT Height 175.260 cm Height/Length Dosing 175.260 cm Weight 125.700 kg Weight Dosing 125.700 kg Body Mass Index 40.920 kg/m2 General: Alert and oriented. Eye: Pupils are equal, round and reactive to light. HENT: Normocephalic. Neck: Supple. Respiratory: Lungs are clear to auscultation. Cardiovascular: Normal rate. Gastrointestinal: Soft, Non-tender, Non-distended. Integumentary: Warm, Dry, [place]. Neurologic: Alert, Oriented. Psychiatric: Cooperative. Impression and Plan Low Back Pain Lumbar Spondylosis Procedure explained to patient along with risks of possible complications and patient wishes to proceed. [Electronically Signed on: 10/27/2020 10:34 EDT] Juan Carlos Owusu MD [Verified on: 10/27/2020 10:34 EDT] Juan Carlos Owusu [facility]05-27-2021 Note [id number]#1.00[facility]05-21-2021 [id number]#1.00[facility] 09-15-2020 [facility] SURGERY Clinical Discharge Summary PERSON INFORMATION Name CARMELITA EASTMAN Age 45 Years 1975 Sex MALE Language Russian PCP Misbah Donahue Marital Status Med Service Pain Management Surgery Acct# Arrival 09/15/2020 08:10:15 Visit Reason low back pain Acuity LOS 012 19:37 Address: [facility] [place] [address] Comment: PROVIDER INFORMATION VITALS INFORMATION Vital Sign [...] DIAGNOSIS Low back pain; Lumbar neuritis Comment: SALVATORE SHERMAN [facility]05-18-2021 Note [id number] The patient has been examined and the medical record reviewed. The indications for surgery and examare unchanged. [Electronically Signed on: 09/15/2020 09:45 EDT] Juan Carlos Owusu MD [Verified on: 09/15/2020 09:45 EDT] Juan Carlos Owusu MD [Transcribed on: 09/14/2020 12:47 EDT] [facility] noteNo InformationNoozarks medical center [employer] Other Evaluation note* Diagnosis Flank pain- Primary Abdominal pain, unspecified site Colon cancer screening Special screening for malignant neoplasms, colon documented in this encounter [facility]ere Work Phone: evaluation noteNo assessment information [facility] Work Phone: Evaluation note* Diagnosis Colon cancer screening Special screening for malignant neoplasms, colon documented in this encounter emere Work Phone: evaluation note* Diagnosis Kidney stone- Primary Calculus of kidney documented in this [facility] [place] [facility] Narrative - Reported* Type Description Date [...] with a cage 2010 Surgical History SCS ([employer]) REPROGRAMMED JAN 292011 Surgical History DOUBLE SI JOINT FUSION 2015 Surgical History EPIDURAL INJ 06/2018 Surgical History kidney stone removal X's2 01/16a nd07/19 Surgical History spinal cord stimulator 2015 Surgical History right shoulder arthr oscopy, posterior superior labral tear using 2 arthrex knotless anchors, excessive debridement bursal sided supraspinatus rotator cuff tear, subacromial decompression Hospitalization History kidney stones 04/2018 Hospitalization History Food poisoning 02/2019 Hospitalization History see surgical hx [facility] Other History general Narrative - Reported* Type [...] with a cage 2010 Surgical History SCS ([employer]) REPROGRAMMED JAN 292011 Surgical History DOUBLE SI JOINT FUSION 2015 Surgical History EPIDURAL INJ 06/2018 Surgical History kidney stone removal 01/16 Surgical History spinal cord stimulator 2015 Hospitalization History kidney stones 04/2018 Hospitalization History Food poisoning 02/2019 Hospitalization History see surgical hx [facility] Other Hospital Discharge instructions* Attachments The following attachments cannot be sent through Care Everywhere. * Flank Pain (Russian) documented in this encounterBON [facility] Work Phone: Hospital Discharge instructions Additional Instructions [...] need to follow-up with the urologist in [place].[facility] Work Phone: Hospital Discharge instructions Additional Instructions Take oxybutynin as instructed Complete the dose of your Levaquin Percocets for severe pain You cannot work or drive when taking Percocet Tylenol or Motrin for minor pain Follow-up with Dr. Durand who placed the stent Return here if you develop any fever, chills, increased pain or any other concernSamaritan [facility] Center Work Phone: Hospital Discharge instructions Additional Instructions Thankfully there is no sign of a kidney stone or of an infection today. Your pain seems to be from your back. I have prescribed some medicine for you. Follow-up with your doctor. [facility] Work Phone: Summary Purpose Family History No [...] Documents on File Type Date Recorded Patient Electrolytic Etcher Expl anation ACP-Advance Directive 02/02/2022 10:10 AM [...] section and content) DATE CREATED AUTHOR 10/18/2017 [facility] DATE CREATED AUTHOR AUTHOR'S ORGANIZ ATION 01/03/2019 [facility] DATE CREATED AUTHOR AUTHOR'S ORGANIZ ATION 11/20/2019 [facility] DATE CREATED AUTHOR AUTHOR'S ORGANIZ ATION 05/07/2021 [facility] DATE CREATED AUTHOR AUTHOR'S ORGANIZ ATION 05/24/2022 [facility] DATE CREATED AUTHOR AUTHOR'S ORGANIZ ATION 02/11/2023 [facility] DATE CREATED AUTHOR AUTHOR'S ORGANIZ ATION [facility] [place] DATE CREATED AUTHOR AUTHOR'S ORGANIZ ATION 04/16/2023 [facility] DATE CREATED AUTHOR AUTHOR'S ORGANIZ ATION 07/20/2023 [facility] REASON FOR VISIT (unrecogniz ed section and content) Reason Comments Abdominal Pain Pt c/o mid abd pain that goes to rt flank, hx. kidney stones Specialty Diagnoses / Procedures Referred By Contac t Referred To Contact Diagnoses Colon cancer screening Colon cancer screening [Z12.11] Procedures MA COLON CA SCRN NOT HI RSK IND MA COLONOSCOPY FLX DX W/COLLJ SPEC WHEN PFRMD MA COLSC FLX W/RMVL OF TUMOR POLYP LESION SNARE TQ MA COLONOSCOPY W/BIOPSY SINGLE/MULTIPLE COLORECTAL CANCER SCREENING, NOT HIGH RISK Brock Leal MD [address] [place] [address] [facility] [address] [place] [address] Referral ID Status Reason Start Date Expiration Date Visits Re quested Visits Authorized [id number] 1 1 Specialty Diagnoses / Procedures Referred By Carmen curry Referred To Contact Diagnoses Kidney stone Kidney stone [N20.0] Procedures MA CYSTO W/SIMPLE REMOVAL STONE & STENT MA CYSTO W/SIMPLE REMOVAL STONE & STENT FLEXIBLE CYSTOSCOPY, LEFT DOUBLE J STENT REMOVAL / MAC / RECENT LABS DONE AT [facility] 11-02-22 (IN [place]) Fara López MD [address] [place] [address] [facility] [address] [place] [address] Referral ID Status Reason Start Date Expiration Date Visits Re quested Visits Authorized [id number] 1 1 Scheduled Active and Recently Administ ered Medications (unrecognized section and content) Medication Order 12/28/2021 12/29/2021 12/30/2021 0.9 % sodium chloride bolus (COMPLETED) 1,000 mL (8.48 mL/kg), IntraVENous, at 495.9 mL/hr, Administer over 121 Minutes, ONCE, On Sun12/30/21 at 1328, For 1 dose 1359 (New Bag - Prov ider: Myrtle Castillo RN)1649 (Stopped - Provider: Shy Pickard RN) HYDROmorphone [...] hour of each other unless specifically ordered. 1653 (Given - Provid er: Shy Pickard [...] mL IVPB (mini-bag) (COMPLETED) 1,000 mg, IntraVENous, SECURITY REP TO O.R., 1 dose, On Bridget 11/09/22 at 1315, Antimicrobial Indications: Surgical Prophylaxis, Administer within 1 hour prior to incision., Pre-op (day of surgery) 1409 (New Bag - Prov ider: Suni Garcia DO) oxyCODONE capsule 5 mg (COMPLETED) 5 [...] Status: Active Member Role Status Dates Wallace Craft DO Primary Care Provider Active Team Status: Inactive Member Role Status Dates Wallace Craft DO Primary Care Provider Active Sam Mccoy Jr, MD Emergency Provider Active Typist Relationship Specialty Start Date End Date Wallace Craft DO [address] [id number] PCP - General Family Medicine 12/22/21 Team Status: Inactive Member Role Status Dates Paulie Nara Boo , DO Primary Care Provider, Attending Provider Active Team Status: Inactive Member Role Status Dates Wallace Craft , DO Primary Care Provider Active Rody Schulte , METAL FITTER- Emergency Provider Active Typist Relationship Specialty Start Date End Date Wallace Craft DO [address] [facility] [address] [place], [place] [id number] PCP - General Family Medicine 12/22/21 Team Status: Inactive Member Role Status Dates Wallace Craft , DO Primary Care Provider Active Ana Maria Bains Charlottearin , [employer] Emergency Provider Active Typist Relationship Specialty Start Date End Date Wallace Craft DO [address] [facility] [address] [place] [address] PCP - General Family Medicine 12/22/21 Goals [...] BE BASED ON THE PRIMARY CLINICAL RECORDS. [facility]. provides no warranty or guarantee of the accuracy or completeness of information in this document.
--- NOTE | 2023-07-21 23:29 | ED_ITS ---
HPI - Abdominal Pain General Chief Complaint: Abdominal Pain Stated Complaint: ABDOMINAL/BLADDER PAIN Time Seen by Provider: 07/21/23 23:23 Source: patient Mode of arrival: walk-in Limitations: no limitations History of Present Illness HPI narrative: presents complaining of abdominal pain and nausea/ vomiting. Believes he is passing a kidney stone. Points to right lower abdomen and groin as site of pain. Has upcoming appointment with urology in about 3 weeks. No fever or chills. No dysuria Related Data Home Medications ?Medication ?Instructions ?Recorded ?Confirmed testosterone cypionate 200 mg/mL mg 07/21/23 intramuscular oil Allergies Allergy/AdvReac Type Severity Reaction Status Date / Time No Known Drug Allergies Allergy Verified 07/21/23 23:02 Review of Systems ROS Status of ROS 10 or more systems reviewed and unremark able except as noted in history and below [facility] Social History Smoking status: Former smoker Exam Constitutional Vital Signs, click to edit/add: Last Vital Signs Temp 97.7 F 07/21/23 22:54 Pulse 76 07/22/23 00:14 Resp 16 07/22/23 00:14 BP 120/73 07/22/23 00:14 Pulse Ox 97 07/22/23 00:14 O2 Del Method Room Air 07/22/23 00:14 Common normals: no apparent distress, average body habitus, oriented x3, no limitations, healthy appearing, alert and well nourished [facility] Common normals: normocephalic and head/scalp atraumatic Eye Common normals: PERRL, EOMs intact bilaterally and conjunctivae normal Respiratory Common normals: normal respiratory effort, no retractions and no use of accessory muscles Cardio Common normals: regular rate, regular rhythm, S1 normal heart sound and S2 normal heart sound GI Common normals: Normal to inspection, nondistended, normoactive bowel sounds present, soft to palpation and non-tender Extremity Common normals: normal to inspection and full ROM Neuro Common normals: oriented x3, CN's II-XII intact bilaterally and moves all extremities Psych Appearance: grossly normal Course Vital Signs Vital signs: Vital Signs Temperature 97.7 F 07/21/23 22:54 Pulse Rate 69 07/21/23 22:54 Respiratory Rate 18 07/21/23 22:54 Blood Pressure 141/81 07/21/23 22:54 Pulse Oximetry 98 07/21/23 22:54 Oxygen Delivery Method Room Air 07/21/23 22:54 Temperature 97.7 F 07/21/23 22:54 Pulse Rate 76 07/22/23 00:14 Respiratory Rate 16 07/22/23 00:14 Blood Pressure 120/73 07/22/23 00:14 Pulse Oximetry 97 07/22/23 00:14 Oxygen Delivery Method Room Air 07/22/23 00:14 MDM - Abdominal Pain MDM Narrative Medical decision making narrative: patient presents complaining of abdominal pain and vomiting. Concerned he may have a kidney stone. CT unremarkable. No sign of stone. Patient medicated with IV fentanyl and reglan. As it was unclear what was causing his pain and nausea he was treated with Protonix for possible GERD. Given prescription for Protonix and reglan for home and advised to follow up with his family doctor for recheck Lab Data Labs: Lab Results 07/21/23 Range/Units 23:37 WBC 9.5 (4.0-11.0) 10^3/uL RBC 4.85 (4.70-6.10) 10^6/uL Hgb 14.4 (14.0-18.0) g/dL Hct 44.8 (42.0-54.0) % MCV 92.4 (80.0-94.0) fL MCH 29.7 (25.9-34.0) pg MCHC 32.1 (29.9-35.2) g/dL RDW 12.6 (11.0-15.0) % Plt Count 257 (150-450) 10^3/uL MPV 9.3 L (9.5-13.5) fL Neut % (Auto) 52.7 (43.0-75.0) % Lymph % (Auto) 33.5 (20.5-60.0) % [place] % (Auto) 7.3 (1.7-12.0) % Eos % (Auto) 5.7 (0.9-7.0) % Baso % (Auto) 0.5 (0.2-2.0) % Neut # (Auto) 5.0 (1.4-6.5) 10^3/uL Lymph # (Auto) 3.2 (1.2-3.8) 10^3/uL [place] # (Auto) 0.7 (0.3-0.8) 10^3/uL Eos # (Auto) 0.5 (0.0-0.7) 10^3/uL Baso # (Auto) 0.1 (0.0-0.1) 10^3/uL Abs Immat Gran (auto) 0.03 (0.00-0.03) 10^3/uL Imm/Tot Granulo (auto) 0.3 (0.0-0.5) % Sodium 140 (136-145) mmol/L Potassium 4.1 (3.5-5.1) mmol/L Chloride 105 (98-107) mmol/L Carbon Dioxide 28.1 (21.0-32.0) mmol/L Anion Gap 11.0 BUN 20.0 H (7.0-18.0) mg/dL Creatinine 1.11 (0.70-1.30) mg/dL Est GFR ( Amer) >60 (>=60) Est GFR (Non-Af Amer) >60 (>=60) BUN/Creatinine Ratio 18.0 Glucose 88 (74-106) mg/dL Lactate 0.9 (0.4-2.0) mmol/L Calcium 8.7 (8.5-10.1) mg/dL Total Bilirubin 0.3 (0.2-1.0) mg/dL AST 14 L (15-37) U/L ALT 23 (16-63) U/L Alkaline Phosphatase 65 (46-116) U/L Troponin I High Sens 4.7 (4.0-76.1) pg/mL Total Protein 6.3 L (6.4-8.2) g/dL Albumin 3.2 L (3.4-5.0) g/dL Globulin 3.1 g/dL Albumin/Globulin Ratio 1.0 Lipase 29.0 (16.0-77.0) U/L Urine Color Yellow (YELLOW) Urine Clarity Clear (CLEAR) Urine pH 6.0 (5.0-9.0) Ur Specific [place] >=1.030 A (1.005-1.025) Urine Protein Negative (NEG/TRACE) mg/dL Urine Glucose (UA) Negative (NEGATIVE) mg/dL Urine Ketones Negative (NEGATIVE) mg/dL Urine Occult Blood Negative (NEGATIVE) Urine Nitrite Negative (NEGATIVE) Urine Bilirubin Negative (NEGATIVE) Urine Urobilinogen 0.2 (0.2-1.0) EU/dL Ur Leukocyte Esterase Negative (NEGATIVE) Imaging Data Chest x-ray: Radiologist's impression: ITS Impressions Abdomen/Pelvis CT 07/21/23 23:31 IMPRESSION: 1. Bilateral nonobstructive nephrolithiasis. 2. Colonic diverticulosis. Electronically authenticated by: MAXX GAYTAN Date: 07/22/2023 00:29 Discharge Plan Discharge Stand Alone Forms: Portal Instructions Chief Complaint: Abdominal Pain Clinical Impression: Abdominal pain Patient Disposition: Home, Self-Care Prescriptions / Home Meds: No Action testosterone cypionate 200 mg/mL oil Print Language: British Instructions: GERD (Gastroesophageal Reflux Disease) (ED), Acute Nausea and Vomiting (DC), Abdominal Pain (ED) Referrals: Physician,Non-Staff, MD [Primary Care Provider] - 1 week (Follow up this week.) Discharge Date/Time: 07/22/23 02:00
--- NOTE | 2023-07-21 23:31 | CT_ITS ---
The [address] [address] Patient Name: CARMELITA INGRAM MRN: [facility]:[id number] date: 1975 Sex: M Assigned Patient Location: ER Current Patient Location: ER Accession/Order Number: [id number] Exam Date: 07/21/2023 23:50 Report Date: 07/22/2023 00:29 At the request of: JOESPH GUZMAN Procedure: CT abdomen pelvis wo con EXAM: CT abdomen pelvis wo con HISTORY: kidney stone COMPARISON: None. TECHNIQUE: Unenhanced CT imaging of the abdomen and pelvis. This CT exam was performed using one or more of the following dose reduction techniques: Automated exposure control, adjustment of the mA and/or KV according to patient size, or use of iterative reconstruction technique. Unless otherwise stated, incidental findings do not require dedicated follow-up imaging. FINDINGS: The lung bases are clear. The heart size is normal. The liver, spleen, pancreas, and adrenal glands are normal. There are small nonobstructing renal calculi bilaterally. There is no hydronephrosis. There is no ureteral calculus. The urinary bladder is distended and within normal limits. The gallbladder is contracted. The bowel is unobstructed. There are scattered colonic diverticulosis without acute diverticulitis. The appendix is normal. There is no free fluid or free air in the abdomen or pelvis. The bones are intact without acute abnormality. There is posterior fusion hardware in the lower lumbar spine. There bilateral sacroiliac screws. There is a spinal stimulator in the lower thoracic spine extending into the posterior right flank. CT/CT abdomen pelvis wo con IMPRESSION: 1. Bilateral nonobstructive nephrolithiasis. 2. Colonic diverticulosis. Electronically authenticated by: MAXX GAYTAN Date: 07/22/2023 00:29
[2023-07-21] MEDS: KETOROLAC TROMETHAMINE 30 MG/ML VIAL IVP (23:44)
[2023-07-21] MEDS: ONDANSETRON PF 4 MG/2 ML VIAL IV (23:44)
[2023-07-21] MEDS: 0.9 % SODIUM CHLORIDE 1,000 ML 999 ML IV (23:44)
[2023-07-21 23:51] LABS: Basophils Absolute Auto 0.1 10^3/uL (0.0-0.1); Basophils Percent Auto 0.5 % (0.2-2.0); Eosinophils Absolute Auto 0.5 10^3/uL (0.0-0.7); Eosinophils Percent Auto 5.7 % (0.9-7.0); Hematocrit 44.8 % (42.0-54.0); Hemoglobin 14.4 g/dL (14.0-18.0); Immature Granulocytes Abs Auto 0.03 10^3/uL (0.00-0.03); Immature Granulocytes Pct Auto 0.3 % (0.0-0.5); Lymphocytes Absolute Auto 3.2 10^3/uL (1.2-3.8); Lymphocytes Percent Auto 33.5 % (20.5-60.0); Mean Corpuscular HGB Conc 32.1 g/dL (29.9-35.2); Mean Corpuscular Hemoglobin 29.7 pg (25.9-34.0); Mean Corpuscular Volume 92.4 fL (80.0-94.0); Mean Platelet Volume 9.3 fL (9.5-13.5); Monocytes Absolute Auto 0.7 10^3/uL (0.3-0.8); Monocytes Percent Auto 7.3 % (1.7-12.0); Neutrophils Percent Auto 52.7 % (43.0-75.0); Platelet Count 257 10^3/uL (150-450); Red Blood Count 4.85 10^6/uL (4.70-6.10); Red Cell Distribution Width 12.6 % (11.0-15.0); White Blood Count 9.5 10^3/uL (4.0-11.0)
[2023-07-21 23:52] LABS: Bilirubin Urine NEGATIVE (NEGATIVE); Blood Urine NEGATIVE (NEGATIVE); Clarity Urine CLEAR (CLEAR); Color Urine YELLOW (YELLOW); Glucose Urine UA NEGATIVE (NEGATIVE); Ketones Urine NEGATIVE (NEGATIVE); Leukocyte Esterase Urine NEGATIVE (NEGATIVE); Nitrite Urine NEGATIVE (NEGATIVE); Protein Urine NEGATIVE (NEG/TRACE); Specific Gravity Urine >=1.030 (1.005-1.025); Urobilinogen Urine 0.2 EU/dL (0.2-1.0)
[2023-07-21 23:55] LABS: Urine Microscopic Indicated NO
[2023-07-22 00:07] LABS: Alanine Aminotransferase 23 U/L (16-63); Albumin Level 3.2 g/dL (3.4-5.0); Alkaline Phosphatase 65 U/L (46-116); Aspartate Amino Transferase 14 U/L (15-37); Bilirubin Total 0.3 mg/dL (0.2-1.0); Calcium 8.7 mg/dL (8.5-10.1); Carbon Dioxide 28.1 mmol/L (21.0-32.0); Chloride 105 mmol/L (98-107); Estimated GFR (African America >60 (>=60); Estimated GFR (Non-African Ame >60 (>=60); Globulin 3.1 g/dL; Glucose 88 mg/dL (74-106); Potassium 4.1 mmol/L (3.5-5.1); Sodium 140 mmol/L (136-145); Total Protein 6.3 g/dL (6.4-8.2); Troponin I High Sensitivity 4.7 pg/mL (4.0-76.1)
[2023-07-22] MEDS: FENTANYL CITRATE/PF 100 MCG/2 ML VIAL IV (00:11)
[2023-07-22 00:14] VITALS: BP 120/73; PULSE 76; RESP 16; O2SAT 97
[2023-07-22] MEDS: METOCLOPRAMIDE HCL 10 MG/2 ML VIAL IVP (00:31)
[2023-07-22 00:46] LABS: Lactate/Lactic Acid 0.9 mmol/L (0.4-2.0)
[2023-07-22] MEDS: 0.9 % SODIUM CHLORIDE 1,000 ML 999 ML IV (01:00)
[2023-07-22] MEDS: PANTOPRAZOLE SODIUM 40 MG VIAL IV (01:17)
== END 2023-07-22 02:00 | disposition home or self-care (01) ==
PROVIDERS: Emergency Provider Internal Medicine
DX: R10.9 Unspecified abdominal pain (principal); Z87.891 Personal history of nicotine dependence; Z79.899 Other long term (current) drug therapy
CPT/HCPCS: 36415; 74176; 80053; 81003; 83605; 83690; 84484; 85025; 96361; 96374; 96375; 99284

== ENCOUNTER 2023-11-21 19:51 | Emergency (ER) | payer OTHER, SELFPAY ==
[2023-11-21 19:56] VITALS: BP 147/95; PULSE 86; TEMP 36.8; O2SAT 97; BMI 35.4
--- OUTSIDE RECORDS SUMMARY | 2023-11-21 20:03 | XMS_ITS | CCD ---
Author Organization [facility] CliniSyor Care Team Providers Care Senior Marketing Specialist Name Role Phone Maddy Rebolledo F Unavailable Unavailable Gabe Rebolledoa F Unavailable Unavailable JOHNSandro MILLER~[phone] UNKNOWN Unavailable U navailable BeniMiller Unavailable Unavailable SEPIDEH MILLER~[phone] UNKNOWN Unavailable U navailable MISLyly, DOCTOR Primary Care Unavailable JHON LIND Admitting [...] Provider UnavailPaulie Casarez Unavailable Sam Sheriff Unavailable Vanessa Craft DOe Primary Care Provider [phone] DO Paulie Boo Primary Care Provider DO Paulie Boo Attending Provider DO Luana Wallace N Primary Care Provider [phone] Franca [facility]- Rody Hinkle Emergency Provider Luana BUCKNER Wallace Primary Care Provider Azul Langford Unavailable Wallace Craft Unavailable Unavailable Tyler Martinez Unavailable Unavailable DO Tyler Martinez Attending Unavailable DO Luana Wallace N Primary Care Provider [phone] MD Sam Mccoy Jr Emergency Provider CHRISTA Loera Emergency Provider Luana DO, Wallace Primary Care Provider [phone] Luana, DO Wallace N Primary Care Provider MD Sam Mccoy Jr Emergency Provider LUANA, WALLACE Primary Care Unavailable LÓPEZ, CHRISTOPHER A Consulting Unavailable LUCILLE, RAFIK Attending Unavailable LUCILLE RAFAYDEE Admitting Unavailable LÓPEZ, CHRISTOPHER A Admitting Unavailable LÓPEZ, CHRISTOPHER A Attending Unavailable LUANA, WALLACE Primary Care Unavailable LÓPEZ, CHRISTOPHER A Admitting Unavailable LÓPEZ, CHRISTOPHER A Attending Unavailable LUANA, WALLACE Primary Care Unavailable LÓPEZ, CHRISTOPHER A Attending Unavailable LÓPEZ, CHRISTOPHER A Referring Unavailable LUANA, WALLACE Primary Care Unavailable KARETITYRAAN Referring Unavailable LUANA, WALLACE Primary Care Unavailable KARETI, WASHBURN Referring Unavailable LUANA, WALLACE Primary Care Unavailable KARETI, WASHBURN Referring Unavailable LUANA, WALLACE Primary Care Unavailable LUANA, WALLACE Primary Care Unavailable LAURA COOK Attending Unavailable IRENA MILIAN Attending Unavailable LUANA, WALLACE Primary Care Unavailable IRENA MILIAN Attending Unavailable LUANA, WALLACE Primary Care Unavailable CHRISTA Oneil Luly Primary Care Provider CHRISTA Oneil Attending Provider DO Db Oliver Emergency Provider Sam Mccoy Jr Attending Unavailable Sam Mccoy Jr Admitting Unavailable Luana, Wallace N Primary Care Unavailable Rohrbacher, Luly Primary Care Unavailable Db Oliver Attending Unavailable Db Oliver Admitting Unavailable Franciscarbacher, Luly Admitting Unavailable FranciscarbacherRachealLuly Attending Unavailable Rohrbacher, Luly Primary Care Unavailable Unavailable Unavailable Unavailable Allergies Allergy Classification Reported Allergen(s) Allergy Type Date of Onset Reaction(s) Facility Opioid Agonists (2 sources) HYDROmorphone Drug Allergy 4 Headache, Unknown Reaction [facility] (17 sources) HYDROmorphone; Translations: [hydromorphone] Drug Allergy 4 Headache [facility] (3 sources) Morphine; Translations: [morphine] Drug Allergy 4 Unknown Reaction [facility] Medications Current Medications Medication Drug Class(es) Dates Sig (Normalized) Sig (Original) [id number] 200 actuat albuterol 0.09 mg/actuat metered dose inhaler (9 sources) beta2-Adrenergic Agonist Start: 03-27-2022 take 2 [...] PACU only cephalexin 500 mg oral capsule (10 sources) Cephalosporin Antibacterial Start: 12-29-2021 cephALEXin (KEFLEX) 500 MG capsule Start: 12-29-2021 End: 10-30-2022 take 500 mg by mouth four times daily Cephalexin Discontinued 500 MG PO Four times daily 24 11December 29, 2021 12:00am October 30, 2022 5:38am Start: 04-18-2021 take 1 capsule by mo mih every eight hours Cephalexin 500 MG 1 capsule Orally every 8 hrs for 2 days Mar, Active 1 ml diphenhydrAMINE hydrochloride 50 mg/ml cartridge [...] DULoxetine 30 mg delayed release oral capsule (20 sources) Serotonin and Norepinephrine Reuptake Inhibitor Start: [...] a day for 30 day(s) August, Active lidocaine hydrochloride 0.02 mg/mg topical gel (9 sources) Antiarrhythmic, Amide Local Anesthetic Start: 11-09-2022 [...] 31, 2018 10:15am take 1 tablet by julio th every six hours oxyCODONE HCl 5 MG 1 tablet as needed Orally every 6 hrs Active phenazopyridine hydrochlorid e 200 mg delayed release oral tablet (17 sources) Start: 12-29-2021 phenazopyridin e (PYRIDIUM) 200 [...] reddish orange predniSONE 20 mg oral tablet (9 sources) Start: 03-27-2022 take 1 tablet by mouth every twelve hours predniSONE 20 MG 1 tablet Orally 2 times a day for 5 day(s) Feb, Active Start: 04-19-2017 End: 04-24-2017 take 60 mg by mouth once daily at mealtime Prednisone Discontinued 60 MG PO Daily 15 5 April 19, 2017 1:00am April 24, 2017 1:03am administer with food or milk 2 ml prochlorperazine 5 mg/ml injection (1 source) Phenothiazine Start: 11-09-2022 End: 11-10-2022 5 mg, IntraVENous, ONCE PRN, 1 dose, Starting on Sun11/09/22 at 1425, Until Sun11/10/22 at 1425, Nausea Initial antiemetic therapy. PACU only 5 ml sodium chloride 9 mg/ml injection (15 sources) Start: 11-09-2022 take 1 dose intravenously twice daily 5-40 mL, IntraVENous, EVERY 12 HOURS SCHEDULED (2 times per day), First dose on Sun11/09/22 at 2100, Until Discontinued For Line Patency: [...] frequent line interruptions/ long duration, Starting on [facility] 11/09/22 at 1426 For piggyback infusion, administer [...] needed 5-40 mL, IntraVENous, PRN, Starting on [facility] 11/09/22 at 1426, Until Discontinued, Line Care, [...] End: 12-30-2021 0.9 % sodium chloride bolus water 1000 mg/ml irrigation solution (1 source) Start: 11-09-2022 sterile water for irrigation Completed/Discontinued Medications Medication Drug Class(es) Dates Sig (Normalized) Sig (Original) acetaminophen 325 mg oral tablet (20 sources) Start: 05-16-2018 End: 07-03-2018 take 650 [...] as needed Orally every 4 hrs Active acetaminophen 325 mg / oxyCODONE hydrochloride 5 mg oral tablet (20 sources) Opioid Agonist Start: 11-02-2022 End: 02-01-2023 take 1 tablet by mouth three times daily Oxycodone-Acetaminophen (Percocet) 5-325 mg tablet Discontinued 1 TAB PO Three times daily 6 November 02, 2022 February 01, 2023 4:11am Start: 07-04-2021 End: 09-05-2023 take 1 tablet by mouth every six hours Oxycodone-Acetaminophen (Percocet) 5-325 mg tablet Discontinued 1 - 2 TAB PO Every 6 hours 15 October 30, 2022 February 01, 2023 4:11am Start: 04-18-2021 take 1 tablet by julio [...] 31, 2018 12:00am May 20, 2019 2:48pm 12 hr buPROPion hydrochloride 100 mg extended release oral tablet (20 sources) Aminoketone Start: 03-10-2019 End: 05-20-2019 take [...] 2018 1:01pm cefdinir 300 mg oral capsule (8 sources) Cephalosporin Antibacterial Start: 05-16-2018 End: 05-21-2018 take 300 mg by mouth twice daily Cefdinir Discontinued 300 MG PO Twice daily 02 01May 16, 2018 1:00am May 21, 2018 1:02am cyclobenzaprine hydrochloride 5 mg oral tablet (20 sources) Muscle Relaxant Start: 02-01-2023 End: 09-05-2023 take 5 mg by mouth three times daily Cyclobenzaprine Discontinued 5 MG PO Three times daily February 01, 2023 12:00am September 05, 2023 1:54pm Start: 09-14-2018 End: 11-22-2018 take 10 mg by mouth three times daily Cyclobenzaprine Discontinued 10 MG PO Three times daily September 14, 2018 12:00am November 22, 2018 11:08pm Start: 04-19-2017 End: 05-14-2018 Cyclobenzaprine Discontinued 10 MG PO every 6 to 8 hours April 19, 2017 1:00am May 14, 2018 1:02pm dextromethorphan hydrobromide 15 mg / guaiFENesin 400 mg / pseudoephedrine hydrochloride 60 mg oral tablet (8 sources) alpha-Adrenergic Agonist, Uncompetitive G-dkbmgw-X-aspartate Receptor Antagonist, Sigma-1 Agonist Start: 01-14-2019 End: 05-20-2019 Zbzojodjujdcoaj-Mr-Wlxigdvvo in (Capmist Dm) 60-15-400 mg Tablet Discontinued 1 TAB PO As Directed January 14, 2019 12:00am May 20, 2019 2:48pm diclofenac sodium 75 mg delayed release oral tablet (11 sources) Nonsteroidal Anti-inflammatory Drug Start: 05-20-2019 End: 12-21-2019 take 1 table t by mouth twice daily Diclofenac Sodium Discontinued [...] PACU only FLUoxetine 10 mg oral capsule (8 sources) Serotonin Reuptake Inhibitor Start: 01-14-2019 End: 05-20-2019 take 1 capsu le by mouth once daily Fluoxetine Discontinued 1 [...] Agonist Start: 11-09-2022 0.5 mg, IntraVENous, EVERY 1 0 MIN PRN, 2 doses, Starting on Bridget 11/09/22 at 1425, Until Discontinued, Pain Severe (7-10) For Phase I. If Phase II oral narcotics have been administered in the last 60 minutes, do not administer IV narcotics unless specifically approved by provider. PACU only Start: 12-30-2021 End: 12-30-2021 HYDROmorphone (DILAUDID) inj ection 1 mg hyoscyamine sulfate 0.125 mg oral tablet (8 sources) Start: 01-14-2019 End: 05-20-2019 Hyoscyamine Sulfate Discontinued 1 TAB SUBLINGUAL As Directed January 14, 2019 12:00am May 20, 2019 2:47pm ibuprofen 600 mg oral tablet (20 sources) Nonsteroidal Anti-inflammatory Drug Start: 10-30-2022 End: 09-05-2023 take 600 mg by mouth every eight hours Ibuprofen Discontinued 600 MG PO Q8H February 01, 2023 12:00am September 05, 2023 1:54pm Start: 12-29-2021 End: 10-30-2022 take 800 mg by mouth every eight hours Ibuprofen Discontinued 800 MG PO Q8H December 29, 2021 9:03am October 30, 2022 5:38am Start: 07-04-2021 End: 12-29-2021 take 600 mg by mouth every eight hours Ibuprofen Discontinued 600 MG PO Q8H July 04, 2021 1:00am December 29, 2021 9:03am take 1 tablet by julio th three times daily at mealtime as needed Ibuprofen 200 MG 1 tablet with food or milk as needed Orally Three times a day Active iopamidol (ISOVUE-300) 61 % injection 50 mL (1 source) Start: 12-30-2021 End: 12-30-2021 iopamidol (ISOVUE-300) 61 % injection 50 mL levoFLOXacin 500 mg oral tablet (8 sources) Quinolone Antimicrobial Start: 11-06-2022 End: 11-13-2022 [...] 2023 4:11am meloxicam 15 mg oral tablet (8 sources) Nonsteroidal Anti-inflammatory Drug Start: 09-10-2018 End: [...] 4 mg naproxen 500 mg oral tablet (8 sources) Nonsteroidal Anti-inflammatory Drug Start: 09-14-2018 End: [...] 10/24/2022 Suspended omeprazole 20 mg oral tablet (8 sources) Proton Pump Inhibitor Start: 11-23-2018 End: [...] chloride 5 mg extended release oral tablet (7 sources) Cholinergic Muscarinic Antagonist Start: 11-06-2022 take 1 tablet by mouth once daily oxybutynin (DITROPAN XL) 5 MG extended release tablet Take 1 tablet by mouth daily 5 tablet 0 11/06/2022 Suspended Start: 11-02-2022 End: 09-05-2023 take 5 mg by mouth twice daily Oxybutynin Chloride Dis continued 5 MG PO Twice daily November 02, 2022 12:00am September 05, 2023 1:53pm phentermine hydrochloride 37.5 mg oral tablet (6 sources) Sympathomimetic Amine Anorectic Start: 09-06-2023 End: 09-06-2023 take 37.5 mg by mouth once daily Phentermine Discontinued 37.5 MG PO Daily September 06, 2023 12:00am September 06, 2023 11:53am Start: 10-24-2022 End: 01-22-2023 take 1 tablet [...] Active promethazine hydrochloride 25 mg oral tablet (8 sources) Phenothiazine Start: 03-13-2017 End: 05-14-2018 take 25 mg by mouth every four to six hours Promethazine Discontinued 25 MG PO EVERY 4-6 HOURS March 13, 2017 1:00am May 14, 2018 1:02pm sucralfate 1000 mg oral tablet (8 sources) Aluminum Complex Start: 12-21-2019 End: 07-04-2021 take 1 tablet by mouth at bedtime Sucralfate (Carafate) 1 gram tablet Discontinued 1 GM PO before meals and at bedtime 60 December 21, 2019 12:00am July 04, 2021 2:58am tamsulosin hydrochloride 0.4 mg oral capsule (16 sources) alpha-Adrenergic Mac Start: 10-07-2022 End: 09-05-2023 Tamsulosin (Flomax) 0.4 mg capsule Discontinued 0.4 MG PO Daily October 30, 2022 12:00am September 05, 2023 1:53pm administer 30 minutes after same meal each day While you have the stent in place to help with pain Start: 07-04-2021 End: 12-29-2021 Tamsulosin (Flomax) 0.4 mg c apsule,extended release 24hr Discontinued 0.4 MG PO Daily July 04, 2021 1:00am December 29, 2021 9:03am administer 30 minutes after same meal each day until stone passes 1 ml testosterone cypionate 200 mg/ml injection (20 sources) Androgen Start: 10-24-2022 End: 03-21-2023 inject 1 mL by intramuscular injection every other week testosterone cypionate (DEPOTESTOTERONE CYPIONATE) 200 MG/ML injection Indications: Low testosterone INJECT 1ML INTRAMUSCULAR EVERY TWO WEEKS 2 mL 2 10/24/2022 03/21/2023 Suspended Start: 12-29-2021 End: 10-04-2023 inject 200 mg by intramuscular injection every other week Testosterone Cypionate Discontinued 200 MG IM December 29, 2021 12:00am October 04, 2023 11:30am every 2 weeks Start: 12-14-2021 inject 1 [...] topiramate 50 mg extended release oral capsule (20 sources) Start: 01-14-2019 End: 12-21-2019 take 1 [...] Active Problems Problem Classification Problem Date Documented Da te Episodic/Chronic Abdominal pain (20 sources) Unspecified abdominal pain; Translations: [Left flank pain] Onset: 9 Episodic Administrative/social admission (11 sources) Worried well; Translations: [Person with feared health complaint in whom no diagnosis is made] 11-23-2018 Episodic Anxiety disorders (17 sources) Generalized anxiety disorder; Translations: [Generalized anxiety disorder] Onset: 9 03-14-2022 Chronic Calculus of urinary tract (20 sources) Calculus of ureter; Translations: [Personal history of urinary calculi] Onset: 9 05-14-2018 Episodic Chronic obstructive pulmonary disease and bronchiectasis (1 source) Bronchitis, not specified as acute or chronic Episodic Conditions associated with dizziness or vertigo (1 source) Benign paroxysmal vertigo, unspecified ear; Translations: [Benign paroxysmal vertigo, unspecified ear] Onset: 3 Episodic Esophageal disorders (1 source) Gastroesophageal reflux disease; Translations: [Gastro-esophageal reflux disease without esophagitis] Onset: 2 03-14-2022 Chronic Essential hypertension (9 sources) Essential (primary) hypertension; Translations: [Essential hypertension] Onset: 9 Chronic Gastritis and duodenitis (8 sources) Acute duodenitis; Translations: [Duodenitis without bleeding] 11-23-2018 Episodic Gastritis and duodenitis (3 sources) Acute duodenitis; Translations: [Duodenitis without hemorrhage] Genitourinary symptoms and ill-defined conditions (7 sources) Presence of urogenital implants; Translations: [Ureteral stent present] 10-30-2022 Chronic Genitourinary symptoms and ill-defined conditions (7 sources) Pyuria; Translations: [Pyuria] 10-30-2022 Episodic Genitourinary symptoms and ill-defined conditions (1 source) Other microscopic hematuria; Translations: [OTHER MICROSCOPIC HEMATURIA] Onset: 9 Headache; including migraine (20 sources) Migraine with aura; Translations: [Migraine with aura, not intractable, without status migrainosus] Chronic Headache; including migraine (11 sources) Headache; Translations: [Headache] 04-19-2017 Episodic Malaise and fatigue (1 source) Weakness; Translations: [Weakness] Onset: 3 Episodic Mood disorders (6 sources) Major depressive disorder; Translations: [Major depressive disorder, single episode, unspecified] Onset: 2 Resolved: 2 Chronic Nausea and vomiting (19 sources) Nausea; Translations: [Nausea and vomiting] 12-21-2019 Episodic Other connective tissue disease (11 sources) Foot pain; Translations: [Pain in unspecified foot] Episodic Other connective tissue disease (1 source) Nerve root disorder; Translations: [Neuralgia, neuritis, and radiculitis, unspecified] 05-18-2022 Episodic Other connective tissue disease (1 source) Pain in left leg; Translations: [Pain in left leg] Onset: 3 Episodic Other diseases of bladder and urethra (6 sources) Spasm of bladder; Translations: [Other specified disorders of bladder] 11-02-2022 Chronic Other diseases of kidney and ureters (5 sources) Hydronephrosis; Translations: [Hydronephrosis with renal and ureteral calculous obstruction] Onset: 3 05-15-2018 Episodic Other diseases of kidney and ureters (7 sources) Hydronephrosis with renal and ureteral calculous obstruction; Translations: [Hydronephrosis with urinary obstruction due to renal calculus] 05-15-2018 Episodic Other endocrine disorders (2 sources) Male hypogonadism; Translations: [Testicular hypofunction] 09-14-2023 Chronic Other endocrine disorders (1 source) Testicular hypofunction; Translations: [Other testicular hypofunction] 10-04-2023 Chronic Other gastrointestinal disorders (1 source) Constipation; Translations: [Constipation, unspecified] 10-23-2023 Episodic Other nervous system disorders (20 sources) Chronic pain; Translations: [Other chronic pain] Chronic Other nutritional; endocrine; and metabolic disorders (2 sources) Obesity, unspecified; Translations: [Obesity, unspecified] Onset: 9 10-04-2023 Chronic Other nutritional; endocrine; and metabolic disorders (2 sources) Body mass index (BMI) 37.0-37.9, adult; Translations: [Body Mass Index 37.0-37.9, adult] Onset: 9 10-04-2023 Chronic Other nutritional; endocrine; and metabolic disorders (3 sources) Severe obesity; Translations: [Morbid (severe) obesity due to excess calories] Chronic Other nutritional; endocrine; and metabolic disorders (3 sources) Body mass index 40+ - severely obese; Translations: [Body mass index (BMI) 40.0-44.9, adult] Chronic Other nutritional; endocrine; and metabolic disorders (1 source) Morbid (severe) obesity due to excess calories Onset: 2 Resolved: 2 Chronic Other nutritional; endocrine; and metabolic disorders (1 source) Body mass index (BMI) 40.0-44.9, adult Onset: 2 Resolved: 2 Chronic Other nutritional; endocrine; and metabolic disorders (1 source) Body mass index 30+ - obesity; Translations: [Body mass index (BMI) 37.0-37.9, adult] 10-05-2023 Chronic Other nutritional; endocrine; and metabolic disorders (1 source) Obesity; Translations: [Obesity, unspecified] 10-05-2023 Chronic Other screening for suspected conditions (not mental disorders or infectious disease) (20 sources) Other specified abnormal findings of blood chemistry; Translations: [Patient encounter status] Onset: 2 Resolved: 2 Episodic Otitis media and related conditions (1 source) Otitis media, unspecified, bilateral Episodic Paralysis (1 source) Paralysis 05-18-2022 Chronic Comment on above: PARALYSIS Residual codes; unclassified (12 sources) Obstructive sleep apnea syndrome; Translations: [Obstructive sleep apnea (adult) (pediatric)] Onset: 2 03-14-2022 Chronic Residual codes; unclassified (2 sources) Other specified postprocedural states; Translations: [Other specified postprocedural states] Onset: 1 Resolved: 1 Episodic Spondylosis; intervertebral disc disorders; other back problems (20 sources) Lumbosacral spondylosis; Translations: [Spondylosis without myelopathy or radiculopathy, lumbosacral region] Onset: 3 11-01-2022 Chronic Spondylosis; intervertebral disc disorders; other back problems (20 sources) Neck pain; Translations: [Sacroiliac joint pain] Onset: 2 04-19-2017 Episodic Comment on above: BACK PAIN Sprains and strains (20 sources) Strain of neck muscle; Translations: [Strain of muscle, fascia and tendon at neck level, initial encounter] Onset: 1 Resolved: 1 Episodic Unclassified (1 source) Radiculopathy 05-18-2022 Unclassified (2 sources) Low back pain, unspecified; Translations: [Low back pain, unspecified] Onset: 3 Unclassified (4 sources) Hypogonadism; Translations: [Hypogonadism] 09-09-2023 Urinary tract infections (8 sources) Cystitis; Translations: [Cystitis, unspecified without hematuria] 12-29-2021 Episodic Past or Other Problems Problem Classification Problem Date Documented Da te Episodic/Chronic Diabetes mellitus without complication (8 sources) Abnormal [...] Translations: [Abnormal weight gain] Onset: 11-15-2010 Episodic Residual codes; unclassified (8 sources) Sleep [...] Test Name Value Interpretation Reference Range Facility Alanine aminotransferase [En zymatic activity/volume] in Serum or PlasmaOrdered By: Db Oliver on 10-23-2023 ALT [Catalytic activity/Vol] 21 U/L Normal 7-52 [facility] Comment on above: Performed By: #### H EPATIC, CBC, LIPASE, BMP #### [facility] [address] [place] [address] Albumin [Mass/volume] in Ser um or Plasma by Bromocresol green (BCG) dye binding methoOrdered By: Db Oliver on 10-23-2023 Albumin BCG dye [Mass/Vol] 4.4 g/dL 3.5-5.7 [facility] Alkaline phosphatase [Enzyma tic activity/volume] in Serum or PlasmaOrdered By: Db Oliver on 10-23-2023 ALP [Catalytic activity/Vol] 62 U/L Normal 34-104 [facility] Comment on above: Performed By: #### H EPATIC, CBC, LIPASE, BMP #### [facility] [address] [place] [address] Aspartate aminotransferase [ Enzymatic activity/volume] in Serum or PlasmaOrdered By: Db Oliver on 10-23-2023 AST [Catalytic activity/Vol] 18 U/L Normal 13-39 [facility] Comment on above: Performed By: #### H EPATIC, CBC, LIPASE, BMP #### [facility] [address] [place] [address] Automated basophil %Ordered By: Db Oliver on 10-23-2023 Basophils/100 WBC (Bld) 0.7 % Normal . [facility] Comment on above: Performed By: #### H EPATIC, CBC, LIPASE, BMP #### [address] Automated basophil countOrde red By: Db Oliver on 10-23-2023 Basophils (Bld) [#/Vol] 0.1 10*3/uL Normal 0.0-0.2 [facility] Comment on above: Result Comment: PERF ORMED BY: [place] [address] PATHOLOGIST [employer] JERAMY DHALIWAL M.D. Performed By: #### H EPATIC, CBC, LIPASE, BMP #### [address] Automated blood monocyte cou ntOrdered By: Db Oliver on 10-23-2023 Monocytes (Bld) [#/Vol] 0.7 10*3/uL Normal 0.0-0.8 [facility] Comment on above: Performed By: #### H EPATIC, CBC, LIPASE, BMP #### [address] Automated eosinophil %Ordere d By: Db Oliver on 10-23-2023 Eosinophils/100 WBC (Bld) 3.7 % Normal . [facility] Comment on above: Performed By: #### H EPATIC, CBC, LIPASE, BMP #### [address] Automated eosinophil countOr dered By: Db Oliver on 10-23-2023 Eosinophils (Bld) [#/Vol] 0.4 10*3/uL Normal 0.0-0.45 [facility] Comment on above: Performed By: #### H EPATIC, CBC, LIPASE, BMP #### [address] Automated monocyte %Ordered By: Db Oliver on 10-23-2023 Monocytes/100 WBC (Bld) 7.2 % Normal . [facility] Comment on above: Performed By: #### H EPATIC, CBC, LIPASE, BMP #### [address] Automated neutrophil %Ordere d By: Db Oliver on 10-23-2023 Neutrophils/100 WBC (Bld) 57.8 % Normal . [facility] Comment on above: Performed By: #### H EPATIC, CBC, LIPASE, BMP #### [facility] [address] Basic Metabolic Panelon 09-29 Creatinine Clr Calc Pharmacy 106.15 Normal [facility] Comment on above: Performed By: #### C MP, LACTIC, CUBLD, CBC #### [facility] [address] GFR/1.73 sq M.predicted MDRD (S/P/Bld) [Vol rate/Area] mL/min/{1.73_m2} Normal [facility] Comment on above: Performed By: #### C MP, LACTIC, CUBLD, CBC #### [facility] [address] Bilirubin Test strip Ql (U)O rdered By: Db Oliver on 10-23-2023 Bilirubin Ql (U) Negative Negative [facility] Bilirubin.direct [Mass/volum e] in Serum or PlasmaOrdered By: Db Oliver on 10-23-2023 Bilirubin.direct [Mass/Vol] 0.00 mg/dL 0.03-0.18 [facility] Comment on above: If the DBIL is less than 0.1, IBIL is not able to becalculated. Bilirubin.total [Mass/volume ] in Serum or PlasmaOrdered By: Db Oliver on 10-23-2023 Bilirubin [Mass/Vol] 0.3 mg/dL Normal 0.3-1.0 [facility] Comment on above: Performed By: #### H EPATIC, CBC, LIPASE, BMP #### [facility] [address] abdomen pelvis wo conon 0 10-23-2023 CT abdomen pelvis wo [facility] [place] [address] [place] [address] CT Scan Report Signed Patient: Carmelita Eastman MR#: [id number] [birth year] : 1975 Acct:[id number] Age/Sex: 48 / M ADM Date: 10/23/23 Loc: ER Room: Type: [facility] ER Attending Dr: Copies to: Db Oliver DO Ordering Provider: Db Oliver DO Date of Service: 10/23/23 CT/CT abdomen pelvis wo con: abdominal pain CT ABDOMEN AND PELVIS WITHOUT INTRAVENOUS CONTRAST: CLINICAL HISTORY: Right flank pain for 2 days. COMPARISON: CT abdomen and pelvis 02/01/2023 TECHNIQUE: Spiral images were obtained through the abdomen and pelvis without intravenous contrast. This CT exam was performed using one or more following dose reduction techniques: Automated exposure control, adjustment of the mA and/or kV according to patient size, or use of iterative reconstruction technique. FINDINGS: Lung Bases: [Mild atelectasis/scarring.] Organs:Suboptimal evaluation due to lack of IV contrast. Liver gallbladder spleen pancreas and adrenal glands appear unremarkable. Bilateral nephrolithiasis, largest stone measuring 8mm involving the left kidney.[No obstructive uropathy is seen. Abdominal aorta appears normal in caliber. GI: Stomach is grossly unremarkable. Small bowel appears nondilated. Appendix is normal. Colonic diverticulosis.[ Pelvis:[Urinary bladder is grossly unremarkable. Prostate gland is grossly unremarkable.] Peritoneum/Retroperitoneu m:No free air, free fluid or lymphadenopathy.[ Abd wall/Bones:Abdominal wall demonstrate no acute findings. Osseous structures demonstrate degenerative changes with hardware in place involving the lumbosacral junction. Neurostimulator device is in place. CT/CT abdomen pelvis wo con IMPRESSION: Bilateral nephrolithiasis, no obstructive uropathy is seen. Impression dictated by: Mk Puentes Jr., D.O.10/23/2023 8:56 AM Dictation Location: [place] [address] Transcribed By: [facility] 10/23/23855 Dictated By: Mk Puentes Jr, DO 10/23/2353 Signed By: 10/23/23855 Normal [facility] Calcium [Mass/volume] in Ser um or PlasmaOrdered By: Db Oliver on 10-23-2023 Calcium [Mass/Vol] 8.9 mg/dL Normal 8.6-10.3 [facility] Comment on above: Performed By: #### C MP, LACTIC, CUBLD, CBC #### [address] Carbon dioxide, total [Moles /volume] in Serum or PlasmaOrdered By: Db Oliver on 10-23-2023 CO2 [Moles/Vol] 26.6 mmol/L Normal 21.0-31.[address] [facility] Comment on above: Performed By: #### C MP, LACTIC, CUBLD, CBC #### [address] Chloride [Moles/volume] in S rosi or PlasmaOrdered By: Db Oliver on 10-23-2023 Chloride [Moles/Vol] 108 mmol/L High 98-107 [facility] Comment on above: Performed By: #### C MP, LACTIC, CUBLD, CBC #### [address] Color of Urine by AutoOrdere d By: Db Oliver on 10-23-2023 Color (U) Light-yellow Normal Yellow [facility] Comment on above: Order Comment: Name Collection Type:: Clean-Voided Midstream Performed By: #### C MP, LACTIC, CUBLD, CBC #### [address] Complete Blood Count Auto Di ffon 10-23-2023 Mean Corpuscular HGB Conc 33.2 g/dL Normal 32.5-35.6 [facility] Comment on above: Performed By: #### H EPATIC, CBC, LIPASE, BMP #### [place] [address] [place] Monocytes/100 WBC (Bld) 18.21 % Normal 0.00-20.00 [facility] Comment on above: Performed By: #### H EPATIC, CBC, LIPASE, BMP #### [place] [address] [place] NRBC% 0.1 /100{WBC} Normal 0-0.5 [facility] Comment on above: Performed By: #### H EPATIC, CBC, LIPASE, BMP #### [facility] [address] Creatinine [Mass/volume] in Serum or PlasmaOrdered By: Db Oliver on 10-23-2023 Creatinine [Mass/Vol] 1.04 mg/dL Normal 0.70-1.30 [facility] Comment on above: Performed By: #### C MP, LACTIC, CUBLD, CBC #### [facility] [address] [place] [address] [place] Erythrocyte distribution wid th [Ratio] by Automated countOrdered By: Db Oliver on 10-23-2023 Erythrocyte distribution width (RBC) [Ratio] 13.8 % Normal 12.0-14.8 [facility] Comment on above: Performed By: #### H EPATIC, CBC, LIPASE, BMP #### [address] Erythrocytes [#/volume] in B lood by Automated countOrdered By: Db Oliver on 10-23-2023 RBC (Bld) [#/Vol] 5.13 10*6/uL Normal 3.90-5.60 [facility] Comment on above: Performed By: #### H EPATIC, CBC, LIPASE, BMP #### [place] [address] [place] Glucose [Mass/volume] in Ser um or PlasmaOrdered By: Db Oliver on 10-23-2023 Glucose [Mass/Vol] 87 mg/dL Normal 70-100 [facility] Comment on above: ADA recommended refe rence rangeRandom Glucose Reference Range is dependent on time and content of last meal. Glucose of more than 200 mg/dL in a nonstressed, ambulatory subject supports the diagnosis of Diabetes Mellitus. Result Comment: [place] om Glucose Reference Range is dependent on time and content of last meal. Glucose of more than 200 mg/dL in a nonstressed, ambulatory subject supports the diagnosis of Diabetes Mellitus. ADA recommended reference range Performed By: #### C MP, LACTIC, CUBLD, CBC #### [facility] [address] [place] [address] [place] Glucose [Mass/volume] in Uri ne by Test stripOrdered By: Db Oliver on 10-23-2023 Glucose Test strip (U) [Mass/Vol] Normal mg/dL Normal [facility] Hematocrit [Volume Fraction] of Blood by Automated countOrdered By: Db Oliver on 10-23-2023 Hematocrit (Bld) [Volume fraction] 46.3 % Normal 38.8-50.0 [facility] Comment on above: Performed By: #### H EPATIC, CBC, LIPASE, BMP #### [address] Hemoglobin Test strip Ql (U) Ordered By: Db Oliver on 10-23-2023 Hemoglobin Ql (U) Negative Negative [facility] Hemoglobin [Mass/volume] in BloodOrdered By: Db Oliver on 10-23-2023 Hemoglobin (Bld) [Mass/Vol] 15.3 g/dL Normal 13.0-17.0 [facility] Comment on above: Performed By: #### H EPATIC, CBC, LIPASE, BMP #### [address] Hepatic Panelon 10-23-2023 Albumin [Mass/Vol] 4.4 g/dL Normal 3.5-5.7 [facility] Comment on above: Performed By: #### H EPATIC, CBC, LIPASE, BMP #### [address] Bilirubin,Indirect 0.3 mg/dL Normal [facility] Comment on above: Performed By: #### H EPATIC, CBC, LIPASE, BMP #### [address] Bilirubin.indirect [Mass/Vol] 0.00 mg/dL Low 0.03-0.18 [facility] Comment on above: Result Comment: If t he DBIL is less than 0.1, IBIL is not able to be calculated. Performed By: #### H EPATIC, CBC, LIPASE, BMP #### [address] Ketones [Presence] in Urine by Test stripOrdered By: Db Oliver on 10-23-2023 Ketones Ql (U) Negative Normal Negative [facility] Comment on above: Order Comment: Name Collection Type:: Clean-Voided Midstream Performed By: #### C MP, LACTIC, CUBLD, CBC #### [facility] [address] Leukocyte esterase [Presence ] in Urine by Test stripOrdered By: Db Oliver on 10-23-2023 Leukocyte esterase Test strip Ql (U) Negative Normal Negative [facility] Comment on above: Order Comment: Name Collection Type:: Clean-Voided Midstream Performed By: #### C MP, LACTIC, CUBLD, CBC #### [facility] [address] [place] [address] Leukocytes [#/volume] correc carl for nucleated erythrocytes in Blood by Automated counOrdered By: Db Oliver on 10-23-2023 WBC corrected for nucl RBC Auto (Bld) [#/Vol] 9.6 10*3/uL 4.1-10.5 [facility] Leukocytes [#/volume] in Blo od by Automated countOrdered By: Db Oliver on 10-23-2023 WBC (Bld) [#/Vol] 9.6 10*3/uL Normal 4.1-10.5 [facility] Comment on above: Performed By: #### H EPATIC, CBC, LIPASE, BMP #### [facility] [address] [place] [address] Lipase [Enzymatic activity/v olume] in Serum or PlasmaOrdered By: Db Oliver on 10-23-2023 Lipase [Catalytic activity/Vol] 49.0 U/L Normal 11.0-82.0 [facility] Comment on above: Result Comment: PERF ORMED BY: [place] [address] PATHOLOGIST [employer] JERAMY DHALIWAL M.D. Performed By: #### C MP, LACTIC, CUBLD, CBC #### [facility] [address] [place] [address] [place] Lymphocytes [#/volume] in Bl ood by Automated countOrdered By: Db Oliver on 10-23-2023 Lymphocytes (Bld) [#/Vol] 3.0 10*3/uL Normal 1.00-4.8 [facility] Comment on above: Performed By: #### H EPATIC, CBC, LIPASE, BMP #### [facility] [address] Lymphocytes/100 leukocytes i n Blood by Automated countOrdered By: Db Oliver on 10-23-2023 Lymphocytes/100 WBC (Bld) 30.6 % Normal . [facility] Comment on above: Performed By: #### H EPATIC, CBC, LIPASE, BMP #### [address] MCH [Entitic mass] by Automa carl countOrdered By: Db Oliver on 10-23-2023 MCH (RBC) [Entitic mass] 29.9 pg Normal 27.5-35.2 [facility] Comment on above: Performed By: #### H EPATIC, CBC, LIPASE, BMP #### [address] MCHC Auto (RBC) [Mass/Vol]Or dered By: Db Oliver on 10-23-2023 MCHC (RBC) [Mass/Vol] 33.2 g/dL 32.5-35.6 [facility] MCV [Entitic volume] by Auto mated countOrdered By: Db Oliver on 10-23-2023 MCV (RBC) [Entitic vol] 90.1 fL Normal 83.5-101 [facility] Comment on above: Performed By: #### H EPATIC, CBC, LIPASE, BMP #### [address] Monocyte distribution width [Entitic volume] in Blood by AutomatedOrdered By: Db Oliver on 10-23-2023 Monocyte distribution width Auto (Bld) [Entitic vol] 18.21 % 0.00-20.00 [facility] Neutrophils [#/volume] in Bl ood by Automated countOrdered By: Db Oliver on 10-23-2023 Neutrophils (Bld) [#/Vol] 5.6 10*3/uL Normal 1.8-7.7 [facility] Comment on above: Performed By: #### H EPATIC, CBC, LIPASE, BMP #### [facility] [address] Nitrite Test strip Ql (U)Ord ered By: Db Oliver on 10-23-2023 Nitrite Ql (U) Negative Negative [facility] No Panel InformationOrdered By: Db Oliver on 10-23-2023 Estimated GFR (CKD-EPI) > 60.0 mL/Min [facility] Creatinine Clearance (Chem 106.15 [facility] Nucleated erythrocytes [Pres ence] in Blood by Automated countOrdered By: Db Oliver on 10-23-2023 Nucleated RBC Auto Ql (Bld) 0.1 /100{WBC} 0-0.5 [facility] Platelet mean volume [Entiti c volume] in Blood by Automated countOrdered By: Db Oliver on 10-23-2023 Platelet mean volume (Bld) [Entitic vol] 7.9 fL Normal 6.6-10.1 [facility] Comment on above: Performed By: #### H EPATIC, CBC, LIPASE, BMP #### [facility] [address] [place] [address] [place] Platelets [#/volume] in Bloo d by Automated countOrdered By: Db Oliver on 10-23-2023 Platelets (Bld) [#/Vol] 263 10*3/uL Normal 150-450 [facility] Comment on above: Performed By: #### H EPATIC, CBC, LIPASE, BMP #### [facility] [address] [place] [address] [place] Potassium [Moles/volume] in Serum or PlasmaOrdered By: Db Oliver on 10-23-2023 Potassium [Moles/Vol] 4.1 mmol/L Normal 3.5-5.1 [facility] Comment on above: Performed By: #### C MP, LACTIC, CUBLD, CBC #### [facility] [address] Protein Test strip (U) [Mass /Vol]Ordered By: Db Oliver on 10-23-2023 Protein (U) [Mass/Vol] Negative Negative [facility] Protein [Mass/volume] in Ser um or PlasmaOrdered By: Db Oliver on 10-23-2023 Protein [Mass/Vol] 7.1 g/dL Normal 6.4-8.9 [facility] Comment on above: Performed By: #### H EPATIC, CBC, LIPASE, BMP #### [address] Serum globulin measurement b y calculation (mass/volume)Ordered By: Db Oliver on 10-23-2023 Globulin (S) [Mass/Vol] 2.7 g/dL [facility] Comment on above: Performed By: #### H EPATIC, CBC, LIPASE, BMP #### [address] Serum or plasma albumin/glob ulin mass ratioOrdered By: Db Oliver on 10-23-2023 Albumin/Globulin [Mass ratio] 1.6 {ratio} [facility] Comment on above: Performed By: #### H EPATIC, CBC, LIPASE, BMP #### [address] Serum or plasma anion gap de terminationOrdered By: Db Oliver on 10-23-2023 Anion gap [Moles/Vol] 7.5 mmol/L Normal 6.0-15.0 [facility] Comment on above: Performed By: #### C MP, LACTIC, CUBLD, CBC #### [address] Serum or plasma non-glucuron idated bilirubin measurement (mass/volume)Ordered By: Db Oliver on 10-23-2023 Bilirubin.indirect [Mass/Vol] 0.3 mg/dL [facility] Sodium [Moles/volume] in Ser um or PlasmaOrdered By: Db Oliver on 10-23-2023 Sodium [Moles/Vol] 138 mmol/L Normal 136-145 [facility] Comment on above: Performed By: #### C MP, LACTIC, CUBLD, CBC #### [address] Specific gravity Test strip (U) [Rel density]Ordered By: Db Oliver on 10-23-2023 Specific gravity (U) [Rel density] 1.024 1.001-1.03 0 [facility] Urea nitrogen [Mass/volume] in Serum or PlasmaOrdered By: Db Oliver on 10-23-2023 Urea nitrogen [Mass/Vol] 17 mg/dL Normal 11-21 [facility] Comment on above: Performed By: #### C MP, LACTIC, CUBLD, CBC #### [place] [address] [place] Urinalysison 10-23-2023 Bilirubin,Urine Negative Normal Negative [facility] Comment on above: Order Comment: Name Collection Type:: Clean-Voided Midstream Performed By: #### C MP, LACTIC, CUBLD, CBC #### [address] Glucose Ql (U) Normal Normal Normal [facility] Comment on above: Order Comment: Name Collection Type:: Clean-Voided Midstream Performed By: #### C MP, LACTIC, CUBLD, CBC #### [place] [address] [place] Nitrite,Urine Negative Normal Negative [facility] Comment on above: Order Comment: Name Collection Type:: Clean-Voided Midstream Performed By: #### C MP, LACTIC, CUBLD, CBC #### [address] Occult Blood,Urine Negative Normal Negative [facility] Comment on above: Order Comment: Name Collection Type:: Clean-Voided Midstream Result Comment: PERF ORMED BY: [place] [address] PATHOLOGIST [employer] JERAMY DHALIWAL M.D. Performed By: #### C MP, LACTIC, CUBLD, CBC #### [address] Protein,Urine Negative Normal Negative [facility] Comment on above: Order Comment: Name Collection Type:: Clean-Voided Midstream Performed By: #### C MP, LACTIC, CUBLD, CBC #### [address] Specificy [place],Urine 1.024 Normal 1.001-1.03 0 [facility] Comment on above: Order Comment: Name Collection Type:: Clean-Voided Midstream Performed By: #### C MP, LACTIC, CUBLD, CBC #### [address] Urobilinogen,Urine 2 mg/dL High Normal [facility] Comment on above: Order Comment: Name Collection Type:: Clean-Voided Midstream Performed By: #### C MP, LACTIC, CUBLD, CBC #### [address] Urine appearanceOrdered By: Db Oliver on 10-23-2023 Appearance (U) Clear Normal Clear [facility] Comment on above: Order Comment: Name Collection Type:: Clean-Voided Midstream Performed By: #### C MP, LACTIC, CUBLD, CBC #### [address] Urobilinogen Test strip (U) [Mass/Vol]Ordered By: Db Oliver on 10-23-2023 Urobilinogen (U) [Mass/Vol] 2 mg/dL Normal [facility] pH of Urine by Test stripOrd ered By: Db Oliver on 10-23-2023 pH (U) 5.5 [pH] Normal 5.0-9.0 [facility] Comment on above: Order Comment: Name Collection Type:: Clean-Voided Midstream Performed By: #### C MP, LACTIC, CUBLD, CBC #### [address] Alanine aminotransferase [En zymatic activity/volume] in Serum or PlasmaOrdered By: Luly Oneil on 09-07-2023 ALT [Catalytic activity/Vol] 17 U/L Normal 7-52 [facility] Comment on above: Performed By: #### C MP, LACTIC, CUBLD, CBC #### [address] Albumin [Mass/volume] in Ser um or Plasma by Bromocresol green (BCG) dye binding methoOrdered By: Luly Oneil on 09-07-2023 Albumin BCG dye [Mass/Vol] 4.1 g/dL 3.5-5.7 [facility] Alkaline phosphatase [Enzyma tic activity/volume] in Serum or PlasmaOrdered By: Luly Oneil on 09-07-2023 ALP [Catalytic activity/Vol] 55 U/L Normal 34-104 [facility] Comment on above: Performed By: #### C MP, LACTIC, CUBLD, CBC #### [address] Aspartate aminotransferase [ Enzymatic activity/volume] in Serum or PlasmaOrdered By: Luly Oneil on 09-07-2023 AST [Catalytic activity/Vol] 15 U/L Normal 13-39 [facility] Comment on above: Performed By: #### C MP, LACTIC, CUBLD, CBC #### [address] Automated basophil %Ordered By: Luly Oneil on 09-07-2023 Basophils/100 WBC (Bld) 0.7 % Normal . [facility] Comment on above: Performed By: #### C MP, LACTIC, CUBLD, CBC #### [address] Automated basophil countOrde red By: Luly Oneil on 09-07-2023 Basophils (Bld) [#/Vol] 0.1 10*3/uL Normal 0.0-0.2 [facility] Comment on above: Result Comment: PERF ORMED BY: [place] [address] PATHOLOGIST [employer] JERAMY DHALIWAL M.D. Performed By: #### C MP, LACTIC, CUBLD, CBC #### [address] Automated blood monocyte cou ntOrdered By: Luly Oneil on 09-07-2023 Monocytes (Bld) [#/Vol] 0.5 10*3/uL Normal 0.0-0.8 [facility] Comment on above: Performed By: #### C MP, LACTIC, CUBLD, CBC #### [address] Automated eosinophil %Ordere d By: Luly Oneil on 09-07-2023 Eosinophils/100 WBC (Bld) 4.1 % Normal . [facility] Comment on above: Performed By: #### C MP, LACTIC, CUBLD, CBC #### [address] Automated eosinophil countOr dered By: Luly Oneil on 09-07-2023 Eosinophils (Bld) [#/Vol] 0.3 10*3/uL Normal 0.0-0.45 [facility] Comment on above: Performed By: #### C MP, LACTIC, CUBLD, CBC #### [address] Automated monocyte %Ordered By: Luly Oneil on 09-07-2023 Monocytes/100 WBC (Bld) 6.8 % Normal . [facility] Comment on above: Performed By: #### C MP, LACTIC, CUBLD, CBC #### [address] Automated neutrophil %Ordere d By: Luly Oneil on 09-07-2023 Neutrophils/100 WBC (Bld) 59.9 % Normal . [facility] Comment on above: Performed By: #### C MP, LACTIC, CUBLD, CBC #### [address] Bilirubin.total [Mass/volume ] in Serum or PlasmaOrdered By: Luly Oneil on 09-07-2023 Bilirubin [Mass/Vol] 0.6 mg/dL Normal 0.3-1.0 [facility] Comment on above: Performed By: #### C MP, LACTIC, CUBLD, CBC #### [facility] [address] [place] [address] [place] Calcium [Mass/volume] in Ser um or PlasmaOrdered By: Luly Oneil on 09-07-2023 Calcium [Mass/Vol] 9.2 mg/dL Normal 8.6-10.3 [facility] Comment on above: Performed By: #### C MP LACTIC CUBLD, CBC #### [facility] [address] [place] [address] [place] Carbon dioxide, total [Moles /volume] in Serum or PlasmaOrdered By: Luly Oneil on 09-07-2023 CO2 [Moles/Vol] 29.1 mmol/L Normal 21.0-31.[address] [facility] Comment on above: Performed By: #### C MP LACTIC CUBLD, CBC #### [place] [address] [place] Chloride [Moles/volume] in S rosi or PlasmaOrdered By: Luly Oneil on 09-07-2023 Chloride [Moles/Vol] 104 mmol/L Normal 98-107 [facility] Comment on above: Performed By: #### C JUDY PRYOR CUBLD, CBC #### [place] [address] [place] Cholesterol [Mass/volume] in Serum or PlasmaOrdered By: Luly Oneil on 09-07-2023 Cholesterol [Mass/Vol] 176 mg/dL Normal 140-200 [facility] Comment on above: Chol less than 200 m g/dl low riskChol 201-239 mg/dl borderline riskChol 240 mg/dl and greater high risk Result Comment: Chol less than 200 mg/dl low risk Chol 201-239 mg/dl borderline risk Chol 240 mg/dl and greater high risk Performed By: #### C MP, LACTIC, CUBLD, CBC #### [place] [address] [place] Cholesterol in LDL Calc [Mas s/Vol]Ordered By: Luly Oneil on 09-07-2023 Cholesterol in LDL [Mass/Vol] 96 mg/dL 0-100 [facility] Comment on above: LDL ATP III CLASSIFI CATIONLDL less than 100 mg/dL OptimalLDL 100-129 mg/dL Near or above optimalLDL 130-159 mg/dL Borderline highLDL 160-189 mg/dL HighLDL greater than 189 mg/dL Very high Cholesterol in VLDL Calc [Ma ss/Vol]Ordered By: Luly Oneil on 09-07-2023 Cholesterol in VLDL [Mass/Vol] 36 mg/dL [facility] Complete Blood Count Auto Di ffon 09-07-2023 Mean Corpuscular HGB Conc 33.0 g/dL Normal 32.5-35.6 [facility] Comment on above: Performed By: #### C MP, LACTIC, CUBLD, CBC #### [address] NRBC% 0.1 /100{WBC} Normal 0-0.5 [facility] Comment on above: Performed By: #### C MP, LACTIC, CUBLD, CBC #### [facility] [address] Comprehensive Metabolic Pane narayan 09-07-2023 Albumin [Mass/Vol] 4.1 g/dL Normal 3.5-5.7 [facility] Comment on above: Performed By: #### C MP, LACTIC, CUBLD, CBC #### [address] GFR/1.73 sq M.predicted MDRD (S/P/Bld) [Vol rate/Area] mL/min/{1.73_m2} Normal [facility] Comment on above: Performed By: #### C MP, LACTIC, CUBLD, CBC #### [address] Creatinine [Mass/volume] in Serum or PlasmaOrdered By: Luly Oneil on 09-07-2023 Creatinine [Mass/Vol] 0.98 mg/dL Normal 0.70-1.30 [facility] Comment on above: Performed By: #### C MP, LACTIC, CUBLD, CBC #### [facility] [address] [place] [address] [place] Erythrocyte distribution wid th [Ratio] by Automated countOrdered By: Luly Oneil on 09-07-2023 Erythrocyte distribution width (RBC) [Ratio] 13.8 % Normal 12.0-14.8 [facility] Comment on above: Performed By: #### C MP, LACTIC, CUBLD, CBC #### [facility] [address] [place] [address] [place] Erythrocytes [#/volume] in B lood by Automated countOrdered By: Luly nOeil on 09-07-2023 RBC (Bld) [#/Vol] 5.31 10*6/uL Normal 3.90-5.60 [facility] Comment on above: Performed By: #### C MP, LACTIC, CUBLD, CBC #### [address] Free testosterone measuremen t by LC-MS/MSOrdered By: Luly Oneil on 09-07-2023 Testosterone Free [Mass/Vol] 25.1 pg/mL 6.8-21.5 [facility] Comment on above: Performed at: [address] [id number] Director: Shakeel Laguna PhD, Phone: [phone] at: - [facility] [id number] Director: Aftab Hanley MD, Phone: [phone] Glucose [Mass/volume] in Ser um or PlasmaOrdered By: Luly Oneil on 09-07-2023 Glucose [Mass/Vol] 89 mg/dL Normal 70-100 [facility] Comment on above: ADA recommended refe rence rangeRandom Glucose Reference Range is dependent on time and content of last meal. Glucose of more than 200 mg/dL in a nonstressed, ambulatory subject supports the diagnosis of Diabetes Mellitus. Result Comment: [place] om Glucose Reference Range is dependent on time and content of last meal. Glucose of more than 200 mg/dL in a nonstressed, ambulatory subject supports the diagnosis of Diabetes Mellitus. ADA recommended reference range Performed By: #### C MP, LACTIC, CUBLD, CBC #### [address] Hematocrit [Volume Fraction] of Blood by Automated countOrdered By: Luly Oneil on 09-07-2023 Hematocrit (Bld) [Volume fraction] 47.7 % Normal 38.8-50.0 [facility] Comment on above: Performed By: #### C MP, LACTIC, CUBLD, CBC #### [facility] [address] Hemoglobin [Mass/volume] in BloodOrdered By: Luly Oneil on 09-07-2023 Hemoglobin (Bld) [Mass/Vol] 15.8 g/dL Normal 13.0-17.0 [facility] Comment on above: Performed By: #### C MP, LACTIC, CUBLD, CBC #### [address] Leukocytes [#/volume] correc carl for nucleated erythrocytes in Blood by Automated counOrdered By: Luly Oneil on 09-07-2023 WBC corrected for nucl RBC Auto (Bld) [#/Vol] 7.9 10*3/uL 4.1-10.5 [facility] Leukocytes [#/volume] in Blo od by Automated countOrdered By: Luly Oneil on 09-07-2023 WBC (Bld) [#/Vol] 7.9 10*3/uL Normal 4.1-10.5 [facility] Comment on above: Performed By: #### C MP, LACTIC, CUBLD, CBC #### [address] Lipid Panelon 09-07-2023 LDL Cholesterol,Calculated 96 mg/dL Normal 0-100 [facility] Comment on above: Result Comment: LDL ATP III CLASSIFICATION LDL less than 100 mg/dL Optimal LDL 100-129 mg/dL Near or above optimal LDL 130-159 mg/dL Borderline high LDL 160-189 mg/dL High LDL greater than 189 mg/dL Very high Performed By: #### C MP, LACTIC, CUBLD, CBC #### [address] Triglyceride w/Reflex 184 mg/dL High 0-149 [facility] Comment on above: Result Comment: TRIG ATP III CLASSIFICATION TRIG less than 150 mg/dL Normal TRIG 150-199 mg/dL Borderline high TRIG 200-500 mg/dL High TRIG greater than 500 mg/dL Very high Standard traceable to the Center for Disease Conrtrol and Prevention (CDC) test method. Performed By: #### C MP, LACTIC, CUBLD, CBC #### [address] VLDL CHOLESTEROL 36 mg/dL Normal [facility] Comment on above: Performed By: #### C MP, LACTIC, CUBLD, CBC #### [address] Lymphocytes [#/volume] in Bl ood by Automated countOrdered By: Luly Oneil on 09-07-2023 Lymphocytes (Bld) [#/Vol] 2.3 10*3/uL Normal 1.00-4.8 [facility] Comment on above: Performed By: #### C MP, LACTIC, CUBLD, CBC #### [address] Lymphocytes/100 leukocytes i n Blood by Automated countOrdered By: Luly Oneil on 09-07-2023 Lymphocytes/100 WBC (Bld) 28.5 % Normal . [facility] Comment on above: Performed By: #### C MP, LACTIC, CUBLD, CBC #### [address] MCH [Entitic mass] by Automa carl countOrdered By: Luly Oneil on 09-07-2023 MCH (RBC) [Entitic mass] 29.6 pg Normal 27.5-35.2 [facility] Comment on above: Performed By: #### C MP, LACTIC, CUBLD, CBC #### [address] MCHC Auto (RBC) [Mass/Vol]Or dered By: Luly Oneil on 09-07-2023 MCHC (RBC) [Mass/Vol] 33.0 g/dL 32.5-35.6 [facility] MCV [Entitic volume] by Auto mated countOrdered By: Luly Oneil on 09-07-2023 MCV (RBC) [Entitic vol] 89.7 fL Normal 83.5-101 [facility] Comment on above: Performed By: #### C MP, LACTIC, CUBLD, CBC #### [facility] [address] [place] [address] Neutrophils [#/volume] in Bl ood by Automated countOrdered By: Luly Oneil on 09-07-2023 Neutrophils (Bld) [#/Vol] 4.7 10*3/uL Normal 1.8-7.7 [facility] Comment on above: Performed By: #### C MP, LACTIC, CUBLD, CBC #### [facility] [address] [place] [address] No Panel InformationOrdered By: Luly Oneil on 09-07-2023 Estimated GFR (CKD-EPI) > 60.0 mL/Min [facility] Creatinine Clearance (Chem N/A [facility] Nucleated erythrocytes [Pres ence] in Blood by Automated countOrdered By: Luly Oneil on 09-07-2023 Nucleated RBC Auto Ql (Bld) 0.1 /100{WBC} 0-0.5 [facility] Platelet mean volume [Entiti c volume] in Blood by Automated countOrdered By: Luly Oneil on 09-07-2023 Platelet mean volume (Bld) [Entitic vol] 7.9 fL Normal 6.6-10.1 [facility] Comment on above: Performed By: #### C MP, LACTIC, CUBLD, CBC #### [facility] [address] [place] [address] Platelets [#/volume] in Bloo d by Automated countOrdered By: Luly Oneil on 09-07-2023 Platelets (Bld) [#/Vol] 282 10*3/uL Normal 150-450 [facility] Comment on above: Performed By: #### C MP, LACTIC, CUBLD, CBC #### [address] Potassium [Moles/volume] in Serum or PlasmaOrdered By: Luly Oneil on 09-07-2023 Potassium [Moles/Vol] 4.7 mmol/L Normal 3.5-5.1 [facility] Comment on above: Performed By: #### C MP, LACTIC, CUBLD, CBC #### [address] Protein [Mass/volume] in Ser um or PlasmaOrdered By: Luly Oneil on 09-07-2023 Protein [Mass/Vol] 6.7 g/dL Normal 6.4-8.9 [facility] Comment on above: Performed By: #### C MP, LACTIC, CUBLD, CBC #### [address] Serum globulin measurement b y calculation (mass/volume)Ordered By: Luly Oneil on 09-07-2023 Globulin (S) [Mass/Vol] 2.6 g/dL [facility] Comment on above: Performed By: #### C MP, LACTIC, CUBLD, CBC #### [address] Serum or plasma albumin/glob ulin mass ratioOrdered By: Luly Oneil on 09-07-2023 Albumin/Globulin [Mass ratio] 1.6 {ratio} [facility] Comment on above: Performed By: #### C MP, LACTIC, CUBLD, CBC #### [address] Serum or plasma anion gap de terminationOrdered By: Luly Oneil on 09-07-2023 Anion gap [Moles/Vol] 13.6 mmol/L Normal 6.0-15.0 [facility] Comment on above: Performed By: #### C MP, LACTIC, CUBLD, CBC #### [address] [place] [address] [place] Serum or plasma high density lipoprotein (HDL) cholesterol measurementOrdered By: Luly Oneil on 09-07-2023 Cholesterol in HDL [Mass/Vol] 43 mg/dL Normal 23-92 [facility] Comment on above: HDL CHOL ATP-III CLA SSIFICATION Cardiovascular RiskHDL > or equal to 60 mg/dL LOWHDL < 40 mg/dL HIGH Result Comment: HDL CHOL ATP-III CLASSIFICATION Cardiovascular Risk HDL > or equal to 60 mg/dL LOW HDL < 40 mg/dL HIGH Performed By: #### C MP, LACTIC, CUBLD, CBC #### [address] Serum or plasma total choles terol/high density lipoprotein (HDL) cholesterol mass ratOrdered By: Luly Oneil on 09-07-2023 Cholesterol.total/Chol esterol in HDL [Mass ratio] 4.1 {ratio} Normal <5.0 [facility] Comment on above: Result Comment: PERF ORMED BY: [place] [address] PATHOLOGIST [employer] JERAMY DHALIWAL M.D. Performed By: #### C MP, LACTIC, CUBLD, CBC #### [address] Sodium [Moles/volume] in Ser um or PlasmaOrdered By: Luly Oneil on 09-07-2023 Sodium [Moles/Vol] 142 mmol/L Normal 136-145 [facility] Comment on above: Performed By: #### C MP, LACTIC, CUBLD, CBC #### [address] Testosterone Free and TotalO rdered By: Luly Oneil on 09-07-2023 Testosterone [Mass/Vol] ng/dL High 264-916 [facility] Comment on above: Adult male reference interval is based on a population ofhealthy nonobese males (BMI <30) between 19 and 39 yearsold. Jonathan et.al. JCEM 2017,102;3318-9713. PMID:[id number]. Result Comment: Adul t male reference interval is based on a population of healthy nonobese males (BMI <30) between 19 and 39 years old. honey Castillo.al. JCEM 2017,102;7084-4005. PMID: [id number]. Performed By: #### C MP, LACTIC, CUBLD, CBC #### [address] Testosterone Free and Totalo n 09-07-2023 Testosterone,Free 25.1 pg/mL High 6.8-21.5 [facility] Comment on above: Result Comment: Perf ormed at: CB - [facility] [address] [id number] Business Integration Analyst: Shakeel Laguna PhD, Phone: [phone] Performed at: - [facility] [address] [id number] Business Integration Analyst: Aftab Hanley MD, Phone: [phone] PERFORMED BY: [place] [address] PATHOLOGIST [employer] JERAMY DHALIWAL M.D. Performed By: #### C MP, LACTIC, CUBLD, CBC #### [address] Triglyceride [Mass/volume] i n Serum or PlasmaOrdered By: Luly Oneil on 09-07-2023 Triglyceride [Mass/Vol] 184 mg/dL 0-149 [facility] Comment on above: TRIG ATP III CLASSIF ICATIONTRIG less than 150 mg/dL NormalTRIG 150-199 mg/dL Borderline highTRIG 200-500 mg/dL High TRIG greater than 500 mg/dL Very highStandard traceable to the Center for Disease Conrtrol and Prevention (CDC) test method. Urea nitrogen [Mass/volume] in Serum or PlasmaOrdered By: Luly Oneil on 09-07-2023 Urea nitrogen [Mass/Vol] 17 mg/dL Normal 7-25 [facility] Comment on above: Performed By: #### C MP, LACTIC, CUBLD, CBC #### [address] Culture, Urineon 07-17-2023 Culture, Urine ORDER#: [id number] OR DERED BY: WALLACE CRAFT SOURCE: Urine Clean Catch Urine COLLECTED: 07/17/23 17:51 ANTIBIOTICS AT ROSEL[facility].: RECEIVED : 07/17/23 18:42 Culture, Urine FINAL 07/18/23 22:00 Cult,Urine: NO GROWTH Performed at [address] [address] Normal [facility] Comment on above: Performed By: #### C XURN #### [facility] [address] [place] [address] CBC With Platelet and Differ entialon 03-31-2023 Basophils (Bld) [#/Vol] 0.1 10*3/uL Normal 0.0-0.2 [facility] Comment on above: Performed By: #### C BCWD #### [facility] [address] [place] [address] Basophils/100 WBC (Bld) 0.6 % Normal [facility] Comment on above: Performed By: #### C BCWD #### [facility] [address] [place] [address] Eosinophils (Bld) [#/Vol] 0.4 10*3/uL Normal 0.0-0.7 [facility] Comment on above: Performed By: #### C BCWD #### [facility] [address] [place] [address] Eosinophils/100 WBC (Bld) 4.8 % Normal [facility] Comment on above: Performed By: #### C BCWD #### [facility] [address] [place] [address] Erythrocyte distribution width (RBC) [Ratio] 12.8 % Normal 11.5-14.5 [facility] Comment on above: Performed By: #### C BCWD #### [facility] [address] [place] [address] Hematocrit (Bld) [Volume fraction] 46.2 % Normal 42.0-52.0 [facility] Comment on above: Performed By: #### C BCWD #### [facility] [address] [place] [address] Hemoglobin (Bld) [Mass/Vol] 14.8 g/dL Normal 14.0-18.0 [facility] Comment on above: Performed By: #### C BCWD #### [facility] [address] [place] [address] Lymphocytes (Bld) [#/Vol] 3.2 10*3/uL Normal 1.0-4.8 [facility] Comment on above: Performed By: #### C BCWD #### [facility] [address] [place] [address] Lymphocytes/100 WBC (Bld) 39.7 % Normal [facility] Comment on above: Performed By: #### C BCWD #### [facility] [address] [place] [address] MCH (RBC) [Entitic mass] 29.9 pg Normal 27.0-31.3 [facility] Comment on above: Performed By: #### C BCWD #### [facility] [address] [place] [address] MCHC 32.0 % Low 33.0-37.0 [facility] Comment on above: Performed By: #### C BCWD #### [facility] [address] [place] [address] MCV (RBC) [Entitic vol] 93.3 fL Critically high 79.0-92.2 [facility] Comment on above: Performed By: #### C BCWD #### [facility] [address] [place] [address] Monocytes (Bld) [#/Vol] 0.7 10*3/uL Normal 0.2-0.8 [facility] Comment on above: Performed By: #### C BCWD #### [facility] [address] [place] [address] Monocytes/100 WBC (Bld) 8.4 % Normal [facility] Comment on above: Performed By: #### C BCWD #### [facility] [address] [place] [address] Neutrophils (Bld) [#/Vol] 3.8 10*3/uL Normal 1.4-6.5 [facility] Comment on above: Performed By: #### C BCWD #### [facility] [address] [place] [address] Neutrophils/100 WBC (Bld) 46.1 % Normal [facility] Comment on above: Performed By: #### C BCWD #### [facility] [address] [place] [address] Platelets (Bld) [#/Vol] 291 10*3/uL Normal 130-400 [facility] Comment on above: Performed By: #### C BCWD #### [facility] [address] [place] [address] RBC (Bld) [#/Vol] 4.95 10*6/uL Normal 4.70-6.10 [facility] Comment on above: Performed By: #### C BCWD #### [facility] [address] [place] [address] WBC (Bld) [#/Vol] 8.1 10*3/uL Normal 4.8-10.8 [facility] Comment on above: Performed By: #### C BCWD #### [facility] [address] [place] [address] CTA HEAD W WO CONTRASTon CTA HEAD [...] Shamir Browning MD 03/31/23 Final result Normal [facility] CTA NECK W WO CONTRASTon [...] Shamir Browning MD 03/31/23 Final result Normal [facility] Comprehensive Metabolic Pane narayan 03-31-2023 Albumin [Mass/Vol] 4.0 g/dL Normal 3.5-4.6 [facility] Comment on above: Performed By: #### C MP #### [facility] [address] [place] [address] ALP [Catalytic activity/Vol] 61 U/L Normal 35-104 [facility] Comment on above: Performed By: #### C MP #### [facility] [address] [place] [address] ALT [Catalytic activity/Vol] 16 U/L Normal 0-41 [facility] Comment on above: Performed By: #### C MP #### [facility] [address] [place] [address] Anion gap [Moles/Vol] 13 mmol/L Normal 9-15 [facility] Comment on above: Performed By: #### C MP #### [facility] [address] [place] [address] AST [Catalytic activity/Vol] 20 U/L Normal 0-40 [facility] Comment on above: Result Comment: Spec imen hemolysis has exceeded the interference as defined by Buster. Value may be falsely increased. Suggest recollection if clinically indicated. Performed By: #### C MP #### [facility] [address] [place] [address] Bilirubin [Mass/Vol] 0.4 mg/dL Normal 0.2-0.7 [facility] Comment on above: Performed By: #### C MP #### [facility] [address] [place] [address] Calcium [Mass/Vol] 8.9 mg/dL Normal 8.5-9.9 [facility] Comment on above: Performed By: #### C MP #### [facility] [address] [place] [address] Chloride [Moles/Vol] 106 mmol/L Normal 95-107 [facility] Comment on above: Performed By: #### C MP #### [facility] [address] [place] [address] CO2 [Moles/Vol] 22 mmol/L Normal 20-31 [facility] Comment on above: Performed By: #### C MP #### [facility] [address] [place] [address] Creatinine [Mass/Vol] 0.81 mg/dL Normal 0.70-1.20 [facility] Comment on above: Performed By: #### C MP #### [facility] [address] [place] [address] GFR >60.0 Normal >60 [facility] Comment on above: Result Comment: [...] secretion. Performed By: #### C MP #### [facility] [address] [place] [address] Globulin (S) [Mass/Vol] 2.5 g/dL Normal 2.3-3.5 [facility] Comment on above: Performed By: #### C MP #### [facility] [address] [place] [address] Glucose [Mass/Vol] 110 mg/dL Critically high 70-99 [facility] Comment on above: Performed By: #### C MP #### [facility] [address] [place] [address] Potassium [Moles/Vol] 4.1 mmol/L Normal 3.4-4.9 [facility] Comment on above: Performed By: #### C MP #### [facility] [address] [place] [address] Protein [Mass/Vol] 6.5 g/dL Normal 6.3-8.0 [facility] Comment on above: Performed By: #### C MP #### [facility] [address] [place] [address] Sodium [Moles/Vol] 141 mmol/L Normal 135-144 [facility] Comment on above: Performed By: #### C MP #### [facility] [address] [place] [address] Urea nitrogen [Mass/Vol] 13 mg/dL Normal 6-20 [facility] Comment on above: Performed By: #### C MP #### [facility] [address] [place] [address] High Sensitivity Troponin To n 03-31-2023 High Sensitivity Troponin T <6 Normal 0-19 [facility] Comment on above: Result Comment: High Sensitivity Troponin values cannot be compared with other Troponin methodologies. Performed By: #### T RP5 #### [facility] [address] [place] [address] High Sensitivity Troponin T <6 Normal 0-19 [facility] Comment on above: Result Comment: High Sensitivity Troponin values cannot be compared with other Troponin methodologies. Performed By: #### T RP5 #### [facility] [address] [place] [address] Magnesiumon 03-31-2023 Magnesium [Mass/Vol] 2.0 mg/dL Normal 1.7-2.4 [facility] Comment on above: Performed By: #### M G #### [facility] [address] [place] [address] POCT Venouson 03-31-2023 Creatinine [Mass/Vol] 0.9 mg/dL Normal 0.8-1.3 [facility] Comment on above: Performed By: #### T RP5 #### [facility] [address] [place] [address] GFR >60 Normal >60 [facility] Comment on above: Result Comment: [...] secretion. Performed By: #### T RP5 #### [facility] [address] [place] [address] POC Performed on SEE BELOW Normal [facility] Comment on above: Result Comment: Perf ormed on POC Performed By: #### T RP5 #### [facility] [address] [place] [address] POC Sample Type PADMNII Normal [facility] Comment on above: Performed By: #### T RP5 #### [facility] [address] [place] [id number] XR CHEST PORTABLEon 03-31-20 XR CHEST PORTABLE [...] Darlene Varela MD 03/31/23 Final result Normal [facility] proBNPon 03-31-2023 proBNP <5 Normal [facility] Comment on above: Result Comment: [...] pulmonary emboli, pulmonary hypertension, pericarditis Reference: Junior Gonzalez, et al. NT-proBNP testing for diagnosis and short-term prognosis in acute destabilized HF: an international pooled analysis of 1256 patients. Heart Journal. 2006;27:330-337 Performed By: #### B NPPR #### [facility] [address] [place] [id number] Alanine aminotransferase [En zymatic activity/volume] in Serum or PlasmaOrdered By: Sam Mccoy on 02-01-2023 ALT [Catalytic activity/Vol] 18 U/L Normal - [facility] Comment on above: Performed By: #### C MP, LACTIC, CUBLD, CBC #### [facility] [address] Albumin [Mass/volume] in Ser um or Plasma by Bromocresol green (BCG) dye binding methoOrdered By: Sam Mccoy on 02-01-2023 Albumin BCG dye [Mass/Vol] 4.2 g/dL 3.5-5.7 [facility] Alkaline phosphatase [Enzyma tic activity/volume] in Serum or PlasmaOrdered By: Sam Mccoy on 02-01-2023 ALP [Catalytic activity/Vol] 47 U/L Normal 34-104 [facility] Comment on above: Performed By: #### C MP, LACTIC, CUBLD, CBC #### [address] Aspartate aminotransferase [ Enzymatic activity/volume] in Serum or PlasmaOrdered By: Sam Mccoy on 02-01-2023 AST [Catalytic activity/Vol] 17 U/L Normal 13-39 [facility] Comment on above: Performed By: #### C MP, LACTIC, CUBLD, CBC #### [address] Automated basophil %Ordered By: Sam Mccoy on 02-01-2023 Basophils/100 WBC (Bld) 0.8 % Normal . [facility] Comment on above: Performed By: #### C MP, LACTIC, CUBLD, CBC #### [address] Automated basophil countOrde red By: Sam Mccoy on 02-01-2023 Basophils (Bld) [#/Vol] 0.1 10*3/uL Normal 0.0-0.2 [facility] Comment on above: Result Comment: PERF ORMED BY: [place] [address] PATHOLOGIST F[employer] JERAMY DHALIWAL M.D. Performed By: #### C MP, LACTIC, CUBLD, CBC #### [address] Automated blood monocyte cou ntOrdered By: Sam Mccoy on 02-01-2023 Monocytes (Bld) [#/Vol] 0.7 10*3/uL Normal 0.0-0.8 [facility] Comment on above: Performed By: #### C MP, LACTIC, CUBLD, CBC #### [address] Automated eosinophil %Ordere d By: Sam Mccoy on 02-01-2023 Eosinophils/100 WBC (Bld) 1.6 % Normal . [facility] Comment on above: Performed By: #### C MP, LACTIC, CUBLD, CBC #### [address] Automated eosinophil countOr dered By: Sam Mccoy on 02-01-2023 Eosinophils (Bld) [#/Vol] 0.1 10*3/uL Normal 0.0-0.45 [facility] Comment on above: Performed By: #### C MP, LACTIC, CUBLD, CBC #### [address] Automated monocyte %Ordered By: Sam Mccoy on 02-01-2023 Monocytes/100 WBC (Bld) 8.4 % Normal . [facility] Comment on above: Performed By: #### C MP, LACTIC, CUBLD, CBC #### [address] Automated neutrophil %Ordere d By: Sam Mccoy on 02-01-2023 Neutrophils/100 WBC (Bld) 62.2 % Normal . [facility] Comment on above: Performed By: #### C MP, LACTIC, CUBLD, CBC #### [address] Automated urine color determ inationOrdered By: Sam Mccoy on 02-01-2023 Color (U) Yellow Normal Yellow [facility] Comment on above: Order Comment: Name Collection Type:: Clean-Voided Midstream Performed By: #### U A #### [address] Bilirubin Test strip Ql (U)O rdered By: Sam Mccoy on 02-01-2023 Bilirubin Ql (U) Negative Negative [facility] Bilirubin.total [Mass/volume ] in Serum or PlasmaOrdered By: Sam Mccoy on 02-01-2023 Bilirubin [Mass/Vol] 0.6 mg/dL Normal 0.3-1.0 [facility] Comment on above: Performed By: #### C MP, LACTIC, CUBLD, CBC #### [facility] [address] [place] [address] Blood Cultureon 02-01-2023 Bacteria identified Cx Nom (Bld) NO GROWTH 5 DAYS PERFORMED BY: [place] [address] PATHOLOGIST FARMWORK[employer] JERAMY DHALIWAL M.D. Normal [facility] Comment on above: Performed By: #### C MP, LACTIC, CUBLD, CBC #### [facility] [address] [place] [address] Bacteria identified Cx Nom (Bld) NO GROWTH 5 DAYS PERFORMED BY: [place] [address] PATHOLOGIST FARMWORK[employer] JERAMY DHALIWAL M.D. Normal [facility] Comment on above: Performed By: #### C MP, LACTIC, CUBLD, CBC #### [address] abdomen pelvis wo conon 1 CT abdomen pelvis wo con [facility] [place] [address] [place] [address] CT Scan Report Signed Patient: Carmelita Eastman MR#: [id number] [birth year] : 1975 Acct:[id number] Age/Sex: 47 / M ADM Date: 01/31/23 Loc: ER Room: Type: [facility] ER Attending Dr: Copies to: [...] Dave Arnold M.D.02/01/2023 7:56 AM Dictation Location: [place] [address] Transcribed By: [facility] 02/01/23 075 Dictated By: Dave Arnold DO 02/01/23 075 Signed By: 02/01/23 0756 Normal [facility] Calcium [Mass/volume] in Ser um or PlasmaOrdered By: Sam Mccoy on 02-01-2023 Calcium [Mass/Vol] 8.9 mg/dL Normal 8.6-10.3 [facility] Comment on above: Performed By: #### C MP, LACTIC, CUBLD, CBC #### [facility] [address] Carbon dioxide, total [Moles /volume] in Serum or PlasmaOrdered By: Sam Mccoy on 02-01-2023 CO2 [Moles/Vol] 25.3 mmol/L Normal 21.0-31.[address] [facility] Comment on above: Performed By: #### C MP, LACTIC, CUBLD, CBC #### [facility] [address] [place] [address] [place] Chloride [Moles/volume] in S rosi or PlasmaOrdered By: Sam Mccoy on 02-01-2023 Chloride [Moles/Vol] 104 mmol/L Normal 98-107 [facility] Comment on above: Performed By: #### C MP, LACTIC, CUBLD, CBC #### [address] Complete Blood Count Auto Di ffon 02-01-2023 Mean Corpuscular HGB Conc 33.8 g/dL Normal 32.5-35.6 [facility] Comment on above: Performed By: #### C MP, LACTIC, CUBLD, CBC #### [address] Monocytes/100 WBC (Bld) 19.96 % Normal 0.00-20.00 [facility] Comment on above: Result Comment: For adults in ED, MDW > 20.0 may be associated with a higher risk of sepsis during the first 12 hrs of hospital admission Performed By: #### C MP, LACTIC, CUBLD, CBC #### [address] NRBC% 0.0 /100{WBC} Normal 0-0.5 [facility] Comment on above: Performed By: #### C MP, LACTIC, CUBLD, CBC #### [address] Comprehensive Metabolic Pane narayan 02-01-2023 Albumin [Mass/Vol] 4.2 g/dL Normal 3.5-5.7 [facility] Comment on above: Performed By: #### C MP, LACTIC, CUBLD, CBC #### [address] Creatinine Clr Calc Pharmacy 102.41 Normal [facility] Comment on above: Result Comment: PERF ORMED BY: [place] [address] PATHOLOGIST [employer] JERAMY DHALIWAL M.D. Performed By: #### C MP, LACTIC, CUBLD, CBC #### [address] GFR/1.73 sq M.predicted MDRD (S/P/Bld) [Vol rate/Area] mL/min/{1.73_m2} Normal [facility] Comment on above: Performed By: #### C MP, LACTIC, CUBLD, CBC #### [address] Creatinine [Mass/volume] in Serum or PlasmaOrdered By: Sam Mccoy on 02-01-2023 Creatinine [Mass/Vol] 1.05 mg/dL Normal 0.70-1.30 [facility] Comment on above: Performed By: #### C MP, LACTIC, CUBLD, CBC #### [address] Erythrocyte distribution wid th [Ratio] by Automated countOrdered By: Sam Mccoy on 02-01-2023 Erythrocyte distribution width (RBC) [Ratio] 13.5 % Normal 12.0-14.8 [facility] Comment on above: Performed By: #### C MP, LACTIC, CUBLD, CBC #### [address] Erythrocytes [#/volume] in B lood by Automated countOrdered By: Sam Mccoy on 02-01-2023 RBC (Bld) [#/Vol] 4.79 10*6/uL Normal 3.90-5.60 [facility] Comment on above: Performed By: #### C MP, LACTIC, CUBLD, CBC #### [address] Glucose [Mass/volume] in Ser um or PlasmaOrdered By: Sam Mccoy on 02-01-2023 Glucose [Mass/Vol] 96 mg/dL Normal 70-100 [facility] Comment on above: ADA recommended refe rence rangeRandom Glucose Reference Range is dependent on time and content of last meal. Glucose of more than 200 mg/dL in a nonstressed, ambulatory subject supports the diagnosis of Diabetes Mellitus. Result Comment: [place] om Glucose Reference Range is dependent on time and content of last meal. Glucose of more than 200 mg/dL in a nonstressed, ambulatory subject supports the diagnosis of Diabetes Mellitus. ADA recommended reference range Performed By: #### C MP, LACTIC, CUBLD, CBC #### [address] Hematocrit [Volume Fraction] of Blood by Automated countOrdered By: Sam Mccoy on 02-01-2023 Hematocrit (Bld) [Volume fraction] 43.1 % Normal 38.8-50.0 [facility] Comment on above: Performed By: #### C MP, LACTIC, CUBLD, CBC #### [address] Hemoglobin [Mass/volume] in BloodOrdered By: Sam Mccoy on 02-01-2023 Hemoglobin (Bld) [Mass/Vol] 14.6 g/dL Normal 13.0-17.0 [facility] Comment on above: Performed By: #### C MP, LACTIC, CUBLD, CBC #### [address] Ketones Auto test strip (U) [Mass/Vol]Ordered By: Sam Mccoy on 02-01-2023 Ketones (U) [Mass/Vol] Negative Negative [facility] Lactate [Moles/volume] in Se rum or PlasmaOrdered By: Sam Mccoy on 02-01-2023 Lactate [Moles/Vol] 0.7 mmol/L Normal 0.5-2.2 [facility] Comment on above: Result Comment: PERF ORMED BY: [place] [address] PATHOLOGIST [employer] JERAMY DHALIWAL M.D. Performed By: #### C MP, LACTIC, CUBLD, CBC #### [address] Leukocytes [#/volume] correc carl for nucleated erythrocytes in Blood by Automated counOrdered By: Sam Mccoy on 02-01-2023 WBC corrected for nucl RBC Auto (Bld) [#/Vol] 8.2 10*3/uL 4.1-10.5 [facility] Leukocytes [#/volume] in Blo od by Automated countOrdered By: Sam Mccoy on 02-01-2023 WBC (Bld) [#/Vol] 8.2 10*3/uL Normal 4.1-10.5 [facility] Comment on above: Performed By: #### C MP, LACTIC, CUBLD, CBC #### [facility] [address] Lymphocytes [#/volume] in Bl ood by Automated countOrdered By: Sam Mccoy on 02-01-2023 Lymphocytes (Bld) [#/Vol] 2.2 10*3/uL Normal 1.00-4.8 [facility] Comment on above: Performed By: #### C MP, LACTIC, CUBLD, CBC #### [address] Lymphocytes/100 leukocytes i n Blood by Automated countOrdered By: Sam Mccoy on 02-01-2023 Lymphocytes/100 WBC (Bld) 27.0 % Normal . [facility] Comment on above: Performed By: #### C MP, LACTIC, CUBLD, CBC #### [address] MCH [Entitic mass] by Automa carl countOrdered By: Sam Mccoy on 02-01-2023 MCH (RBC) [Entitic mass] 30.4 pg Normal 27.5-35.2 [facility] Comment on above: Performed By: #### C MP, LACTIC, CUBLD, CBC #### [address] MCHC Auto (RBC) [Mass/Vol]Or dered By: Sam Mccoy on 02-01-2023 MCHC (RBC) [Mass/Vol] 33.8 g/dL 32.5-35.6 [facility] MCV [Entitic volume] by Auto mated countOrdered By: Sam Mccoy on 02-01-2023 MCV (RBC) [Entitic vol] 90.0 fL Normal 83.5-101 [facility] Comment on above: Performed By: #### C MP, LACTIC, CUBLD, CBC #### [address] Monocyte distribution width [Entitic volume] in Blood by AutomatedOrdered By: Sam Mccoy on 02-01-2023 Monocyte distribution width Auto (Bld) [Entitic vol] 19.96 % 0.00-20.00 [facility] Comment on above: For adults in ED, MD W > 20.0 may be associated with a higher risk of sepsis during the first 12 hrs of hospital admission Neutrophils [#/volume] in Bl ood by Automated countOrdered By: Sam Mccoy on 02-01-2023 Neutrophils (Bld) [#/Vol] 5.1 10*3/uL Normal 1.8-7.7 [facility] Comment on above: Performed By: #### C MP, LACTIC, CUBLD, CBC #### [facility] [address] [place] [address] Nitrite Test strip Ql (U)Ord ered By: Sam Mccoy on 02-01-2023 Nitrite Ql (U) Negative Negative [facility] No Panel InformationOrdered By: Sam Mccoy on 02-01-2023 Estimated GFR (CKD-EPI) > 60.0 mL/Min [facility] Creatinine Clearance (Chem 102.41 [facility] Nucleated erythrocytes [Pres ence] in Blood by Automated countOrdered By: Sam Mccoy on 02-01-2023 Nucleated RBC Auto Ql (Bld) 0.0 /100{WBC} 0-0.5 [facility] Platelet mean volume [Entiti c volume] in Blood by Automated countOrdered By: Sam Mccoy on 02-01-2023 Platelet mean volume (Bld) [Entitic vol] 7.5 fL Normal 6.6-10.1 [facility] Comment on above: Performed By: #### C MP, LACTIC, CUBLD, CBC #### [facility] [address] [place] [address] Platelets [#/volume] in Bloo d by Automated countOrdered By: Sam Mccoy on 02-01-2023 Platelets (Bld) [#/Vol] 231 10*3/uL Normal 150-450 [facility] Comment on above: Performed By: #### C MP, LACTIC, CUBLD, CBC #### [facility] [address] [place] [address] [place] Potassium [Moles/volume] in Serum or PlasmaOrdered By: Sam Mccoy on 02-01-2023 Potassium [Moles/Vol] 3.8 mmol/L Normal 3.5-5.1 [facility] Comment on above: Performed By: #### C MP, LACTIC, CUBLD, CBC #### [address] Protein Auto test strip (U) [Mass/Vol]Ordered By: Sam Mccoy on 02-01-2023 Protein (U) [Mass/Vol] Negative Negative [facility] Protein [Mass/volume] in Ser um or PlasmaOrdered By: Sam Mccoy on 02-01-2023 Protein [Mass/Vol] 7.0 g/dL Normal 6.4-8.9 [facility] Comment on above: Performed By: #### C MP LACTIC CUBLD, CBC #### [address] Serum globulin measurement b y calculation (mass/volume)Ordered By: Sam Mccoy on 02-01-2023 Globulin (S) [Mass/Vol] 2.8 g/dL Normal [facility] Comment on above: Performed By: #### C MP LACTIC CUBLD, CBC #### [address] Serum or plasma albumin/glob ulin mass ratioOrdered By: Sam Mccoy on 02-01-2023 Albumin/Globulin [Mass ratio] 1.5 {ratio} [facility] Comment on above: Performed By: #### C MP LACTIC CUBLD, CBC #### [address] Serum or plasma anion gap de terminationOrdered By: Sam Mccoy on 02-01-2023 Anion gap [Moles/Vol] 11.5 mmol/L Normal 6.0-15.0 [facility] Comment on above: Performed By: #### C MP, LACTIC, CUBLD, CBC #### [address] Sodium [Moles/volume] in Ser um or PlasmaOrdered By: Sam Mccoy on 02-01-2023 Sodium [Moles/Vol] 137 mmol/L Normal 136-145 [facility] Comment on above: Performed By: #### C MP LACTIC, CUBLD, CBC #### [address] Specific gravity Auto test s trip (U) [Rel density]Ordered By: Sam Mccoy on 02-01-2023 Specific gravity (U) [Rel density] 1.007 1.001-1.03 0 [facility] Urea nitrogen [Mass/volume] in Serum or PlasmaOrdered By: Sam Mccoy on 02-01-2023 Urea nitrogen [Mass/Vol] 16 mg/dL Normal 7-25 [facility] Comment on above: Performed By: #### C MP, LACTIC, CUBLD, CBC #### [facility] [address] Urinalysison 02-01-2023 Appearance (U) Clear Normal Clear [facility] Comment on above: Order Comment: Name Collection Type:: Clean-Voided Midstream Performed By: #### U A #### [address] Bilirubin,Urine Negative Normal Negative [facility] Comment on above: Order Comment: Name Collection Type:: Clean-Voided Midstream Performed By: #### U A #### [address] Glucose Ql (U) Normal Normal Normal [facility] Comment on above: Order Comment: Name Collection Type:: Clean-Voided Midstream Performed By: #### U A #### [address] Ketones Ql (U) Negative Normal Negative [facility] Comment on above: Order Comment: Name Collection Type:: Clean-Voided Midstream Performed By: #### U A #### [address] Leukocyte esterase Test strip Ql (U) Negative Normal Negative [facility] Comment on above: Order Comment: Name Collection Type:: Clean-Voided Midstream Performed By: #### U A #### [address] Nitrite,Urine Negative Normal Negative [facility] Comment on above: Order Comment: Name Collection Type:: Clean-Voided Midstream Performed By: #### U A #### [place] [address] [place] Occult Blood,Urine Negative Normal Negative [facility] Comment on above: Order Comment: Name Collection Type:: Clean-Voided Midstream Result Comment: PERF ORMED BY: [place] [address] PATHOLOGIST F[employer] JERAMY DHALIWAL M.D. Performed By: #### U A #### [address] Protein,Urine Negative Normal Negative [facility] Comment on above: Order Comment: Name Collection Type:: Clean-Voided Midstream Performed By: #### U A #### [address] Specificy [place],Urine 1.007 Normal 1.001-1.03 0 [facility] Comment on above: Order Comment: Name Collection Type:: Clean-Voided Midstream Performed By: #### U A #### [address] Urobilinogen,Urine Normal Normal Normal [facility] Comment on above: Order Comment: Name Collection Type:: Clean-Voided Midstream Performed By: #### U A #### [address] Urine clarity by refractomet ry automatedOrdered By: Sam Mccoy on 02-01-2023 Clarity Refractometry automated (U) Clear Clear [facility] Urine glucose measurement by automated test strip (mass/volume)Ordered By: Sam Mccoy on 02-01-2023 Glucose Auto test strip (U) [Mass/Vol] Normal mg/dL Normal [facility] Urine hemoglobin detection b y automated test stripOrdered By: Sam Mccoy on 02-01-2023 Hemoglobin Auto test strip Ql (U) Negative Negative [facility] Urine leukocyte esterase det ection by automated test stripOrdered By: Sam Mccoy on 02-01-2023 Leukocyte esterase Auto test strip Ql (U) Negative Negative [facility] Urine pH measurement by auto mated test stripOrdered By: Sam Mccoy on 02-01-2023 pH (U) 6.0 [pH] Normal 5.0-9.0 [facility] Comment on above: Order Comment: Name Collection Type:: Clean-Voided Midstream Performed By: #### U A #### [facility] [address] [place] [id number] [facility] Urobilinogen Auto test strip (U) [Mass/Vol]Ordered By: Sam Mccoy on 02-01-2023 Urobilinogen (U) [Mass/Vol] Normal mg/dL Normal [facility] OPERATIVE REPORTon 3 [place] [address] OPERATIVE REPORT PATIENT NAME: CARMELITA EASTMAN : 1975 MED REC NO: [id number] ROOM: ACCOUNT NO: [id number] ADMIT DATE: 11/09/2022 PROVIDER: Fara López MD [...] my office as scheduled. FARA LÓPEZ MD /[email or web address] Doc#: [id number] CC: Fara López MD [facility] Alanine aminotransferase [En zymatic activity/volume] in Serum or PlasmaOrdered By: Ana Maria Loera on 11-02-2022 ALT [Catalytic activity/Vol] 9 U/L 7-52 [facility] Albumin [Mass/volume] in Ser um or Plasma by Bromocresol green (BCG) dye binding methoOrdered By: Ana Maria Loera on 11-02-2022 Albumin BCG dye [Mass/Vol] 3.8 g/dL 3.5-5.7 [facility] Alkaline phosphatase [Enzyma tic activity/volume] in Serum or PlasmaOrdered By: Ana Maria Loera on 11-02-2022 ALP [Catalytic activity/Vol] 47 U/L 34-104 [facility] Aspartate aminotransferase [ Enzymatic activity/volume] in Serum or PlasmaOrdered By: Ana Maria Loera on 11-02-2022 AST [Catalytic activity/Vol] 11 U/L 13-39 [facility] Automated erythrocytes count in urine sediment (number/area)Ordered By: Ana Maria Loera on 11-02-2022 RBC Auto (Urine sed) [#/Area] Innumerable [HPF] 0-4 [facility] Automated leukocytes count i n urine sediment (number/area)Ordered By: Ana Maria Loera on 11-02-2022 WBC Auto (Urine sed) [#/Area] 10-19 [HPF] 0-4 [facility] Basophils Auto (Bld) [#/Vol] Ordered By: Ana Maria Loera on 11-02-2022 Basophils (Bld) [#/Vol] 0.0 10*3/uL 0.0-0.2 [facility] Basophils/100 WBC Auto (Bld) Ordered By: Ana Maria Loera on 11-02-2022 Basophils/100 WBC (Bld) 0.7 % . [facility] Bilirubin Test strip Ql (U)O rdered By: Ana Maria Loera on 11-02-2022 Bilirubin Ql (U) 1+ Negative [facility] Bilirubin.total [Mass/volume ] in Serum or PlasmaOrdered By: Ana Maria Loera on 11-02-2022 Bilirubin [Mass/Vol] 0.4 mg/dL 0.3-1.0 [facility] Calcium [Mass/volume] in Ser um or PlasmaOrdered By: Ana Maria Loera on 11-02-2022 Calcium [Mass/Vol] 8.9 mg/dL 8.6-10.3 [facility] Carbon dioxide, total [Moles /volume] in Serum or PlasmaOrdered By: Ana Maria Loera on 11-02-2022 CO2 [Moles/Vol] 28.3 mmol/L 21.0-31.[address] [facility] Chloride [Moles/volume] in S rosi or PlasmaOrdered By: Ana Maria Loera on 11-02-2022 Chloride [Moles/Vol] 108 mmol/L 98-107 [facility] Color Auto (U)Ordered By: Ag Loera on 11-02-2022 Color (U) [place] Yellow [facility] Creatinine [Mass/volume] in Serum or PlasmaOrdered By: Ana Maria Loera on 11-02-2022 Creatinine [Mass/Vol] 1.01 mg/dL 0.70-1.30 [facility] Eosinophils Auto (Bld) [#/Vo l]Ordered By: Ana Maria Loera on 11-02-2022 Eosinophils (Bld) [#/Vol] 0.2 10*3/uL 0.0-0.45 [facility] Eosinophils/100 WBC Auto (Bl d)Ordered By: Ana Maria Loera on 11-02-2022 Eosinophils/100 WBC (Bld) 3.2 % . [facility] Erythrocyte distribution wid th Auto (RBC) [Ratio]Ordered By: Ana Maria Loera on 11-02-2022 Erythrocyte distribution width (RBC) [Ratio] 13.2 % 12.0-14.8 [facility] Globulin Calc (S) [Mass/Vol] Ordered By: Ana Maria Loera on 11-02-2022 Globulin (S) [Mass/Vol] 2.4 g/dL [facility] Glucose [Mass/volume] in Ser um or PlasmaOrdered By: Ana Maria Loera on 11-02-2022 Glucose [Mass/Vol] 97 mg/dL 70-100 [facility] Comment on above: ADA recommended refe rence rangeRandom Glucose Reference Range is dependent on time and content of last meal. Glucose of more than 200 mg/dL in a nonstressed, ambulatory subject supports the diagnosis of Diabetes Mellitus. Hematocrit Auto (Bld) [Volum e fraction]Ordered By: Ana Maria Loera on 11-02-2022 Hematocrit (Bld) [Volume fraction] 46.5 % 38.8-50.0 [facility] Hemoglobin [Mass/volume] in BloodOrdered By: Ana Maria Loera on 11-02-2022 Hemoglobin (Bld) [Mass/Vol] 15.1 g/dL 13.0-17.0 [facility] Ketones Auto test strip (U) [Mass/Vol]Ordered By: Ana Maria Loera on 11-02-2022 Ketones (U) [Mass/Vol] Trace Negative [facility] - UrinalysisOrder ed By: Ana Maria Loera on 11-02-2022 Hyaline casts LM Ql (Urine sed) 0-8 [LPF] 0-8 [facility] Lactate [Moles/volume] in Se rum or PlasmaOrdered By: Ana Maria Loera on 11-02-2022 Lactate [Moles/Vol] 1.1 mmol/L 0.5-2.2 [facility] Leukocytes [#/volume] correc carl for nucleated erythrocytes in Blood by Automated counOrdered By: Ana Maria Loera on 11-02-2022 WBC corrected for nucl RBC Auto (Bld) [#/Vol] 7.3 10*3/uL 4.1-10.5 [facility] Lipase [Enzymatic activity/v olume] in Serum or PlasmaOrdered By: Ana Maria Loera on 11-02-2022 Lipase [Catalytic activity/Vol] 15.0 U/L 11.0-82.0 [facility] Lymphocytes Auto (Bld) [#/Vo l]Ordered By: Ana Maria Loera on 11-02-2022 Lymphocytes (Bld) [#/Vol] 1.9 10*3/uL 1.00-4.8 [facility] Lymphocytes/100 WBC Auto (Bl d)Ordered By: Ana Maria Loera on 11-02-2022 Lymphocytes/100 WBC (Bld) 25.3 % . [facility] MCH Auto (RBC) [Entitic mass ]Ordered By: Ana Maria Loera on 11-02-2022 MCH (RBC) [Entitic mass] 29.4 pg 27.5-35.2 [facility] MCHC Auto (RBC) [Mass/Vol]Or dered By: Ana Maria Loera on 11-02-2022 MCHC (RBC) [Mass/Vol] 32.5 g/dL 32.5-35.6 [facility] MCV Auto (RBC) [Entitic vol] Ordered By: Ana Maria Loera on 11-02-2022 MCV (RBC) [Entitic vol] 90.4 fL 83.5-101 [facility] Monocyte distribution width [Entitic volume] in Blood by AutomatedOrdered By: Ana Maria Loera on 11-02-2022 Monocyte distribution width Auto (Bld) [Entitic vol] 19.60 % 0.00-20.00 [facility] Monocytes Auto (Bld) [#/Vol] Ordered By: Ana Maria Loera on 11-02-2022 Monocytes (Bld) [#/Vol] 0.6 10*3/uL 0.0-0.8 [facility] Monocytes/100 WBC Auto (Bld) Ordered By: Ana Maria Loera on 11-02-2022 Monocytes/100 WBC (Bld) 7.6 % . [facility] Neutrophils Auto (Bld) [#/Vo l]Ordered By: Ana Maria Loera on 11-02-2022 Neutrophils (Bld) [#/Vol] 4.6 10*3/uL 1.8-7.7 [facility] Neutrophils/100 WBC Auto (Bl d)Ordered By: Ana Maria Loera on 11-02-2022 Neutrophils/100 WBC (Bld) 63.2 % . [facility] Nitrite Test strip Ql (U)Ord ered By: Ana Maria Loera on 11-02-2022 Nitrite Ql (U) Negative Negative [facility] No Panel InformationOrdered By: Ana Maria Loera on 11-02-2022 Estimated GFR (CKD-EPI) > 60.0 mL/Min [facility] Creatinine Clearance (Chem 109.84 [facility] Nucleated erythrocytes [Pres ence] in Blood by Automated countOrdered By: Ana Maria Loera on 11-02-2022 Nucleated RBC Auto Ql (Bld) 0.1 /100{WBC} 0-0.5 [facility] Platelet mean volume Auto (B ld) [Entitic vol]Ordered By: Ana Maria Loera on 11-02-2022 Platelet mean volume (Bld) [Entitic vol] 7.8 fL 6.6-10.1 [facility] Platelets Auto (Bld) [#/Vol] Ordered By: Ana Maria Loera on 11-02-2022 Platelets (Bld) [#/Vol] 260 10*3/uL 150-450 [facility] Potassium [Moles/volume] in Serum or PlasmaOrdered By: Ana Maria Loera on 11-02-2022 Potassium [Moles/Vol] 4.4 mmol/L 3.5-5.1 [facility] Protein Auto test strip (U) [Mass/Vol]Ordered By: Ana Maria Loera on 11-02-2022 Protein (U) [Mass/Vol] 300 mg/dL Negative [facility] Protein [Mass/volume] in Ser um or PlasmaOrdered By: Ana Maria Loera on 11-02-2022 Protein [Mass/Vol] 6.2 g/dL 6.4-8.9 [facility] RBC Auto (Bld) [#/Vol]Ordere d By: Ana Maria Loera on 11-02-2022 RBC (Bld) [#/Vol] 5.15 10*6/uL 3.90-5.60 [facility] Serum or plasma albumin/glob ulin mass ratioOrdered By: Ana Maria Loera on 11-02-2022 Albumin/Globulin [Mass ratio] 1.6 {ratio} [facility] Serum or plasma anion gap de terminationOrdered By: Ana Maria Loera on 11-02-2022 Anion gap [Moles/Vol] 9.1 mmol/L 6.0-15.0 [facility] Sodium [Moles/volume] in Ser um or PlasmaOrdered By: Ana Maria Loera on 11-02-2022 Sodium [Moles/Vol] 141 mmol/L 136-145 [facility] Specific gravity Auto test s trip (U) [Rel density]Ordered By: Ana Maria Loera on 11-02-2022 Specific gravity (U) [Rel density] 1.025 1.001-1.03 0 [facility] Squamous epithelial cells de tection in urine sediment by light microscopyOrdered By: Ana Maria Loera on 11-02-2022 Epithelial cells.squamous LM Ql (Urine sed) 3-4 [HPF] 0-2 [facility] Urea nitrogen [Mass/volume] in Serum or PlasmaOrdered By: Ana Maria Loera on 11-02-2022 Urea nitrogen [Mass/Vol] 12 mg/dL 7-25 [facility] Urine bacteria detection by automated methodOrdered By: Ana Maria Loera on 11-02-2022 Bacteria Auto Ql (U) None seen None Seen [facility] Urine clarity by refractomet ry automatedOrdered By: Ana Maria Loera on 11-02-2022 Clarity Refractometry automated (U) Turbid Clear [facility] Urine glucose measurement by automated test strip (mass/volume)Ordered By: Ana Maria Loera on 11-02-2022 Glucose Auto test strip (U) [Mass/Vol] Normal mg/dL Normal [facility] Urine hemoglobin detection b y automated test stripOrdered By: Ana Maria Loera on 11-02-2022 Hemoglobin Auto test strip Ql (U) 3+ Negative [facility] Urine leukocyte esterase det ection by automated test stripOrdered By: Ana Maria Loera on 11-02-2022 Leukocyte esterase Auto test strip Ql (U) 2+ Negative [facility] Urine sediment renal epithel ial cell count by microscopy (number/high power field)Ordered By: Ana Maria Loera on 11-02-2022 Epithelial cells.renal LM.HPF (Urine sed) [#/Area] None seen [HPF] 0-1 [facility] Urobilinogen Auto test strip (U) [Mass/Vol]Ordered By: Ana Maria Loera on 11-02-2022 Urobilinogen (U) [Mass/Vol] Normal mg/dL Normal [facility] WBC Auto (Bld) [#/Vol]Ordere d By: Ana Maria Loera on 11-02-2022 WBC (Bld) [#/Vol] 7.3 10*3/uL 4.1-10.5 [facility] pH Auto test strip (U)Ordere d By: Ana Maria Loera on 11-02-2022 pH (U) 6.5 [pH] 5.0-9.0 [facility] Alanine aminotransferase [En zymatic activity/volume] in Serum or PlasmaOrdered By: Sam Mccoy on 10-30-2022 ALT [Catalytic activity/Vol] 13 U/L 7-52 [facility] Albumin [Mass/volume] in Ser um or Plasma by Bromocresol green (BCG) dye binding methoOrdered By: Sam Mccoy on 10-30-2022 Albumin BCG dye [Mass/Vol] 4.3 g/dL 3.5-5.7 [facility] Alkaline phosphatase [Enzyma tic activity/volume] in Serum or PlasmaOrdered By: Sam Mccoy on 10-30-2022 ALP [Catalytic activity/Vol] 55 U/L 34-104 [facility] Aspartate aminotransferase [ Enzymatic activity/volume] in Serum or PlasmaOrdered By: Sam Mccoy on 10-30-2022 AST [Catalytic activity/Vol] 13 U/L 13-39 [facility] Automated erythrocytes count in urine sediment (number/area)Ordered By: Sam Mccoy on 10-30-2022 RBC Auto (Urine sed) [#/Area] Innumerable [HPF] 0-4 [facility] Automated leukocytes count i n urine sediment (number/area)Ordered By: Sam Mccoy on 10-30-2022 WBC Auto (Urine sed) [#/Area] 50-100 [HPF] 0-4 [facility] Basophils Auto (Bld) [#/Vol] Ordered By: Sam Mccoy on 10-30-2022 Basophils (Bld) [#/Vol] 0.1 10*3/uL 0.0-0.2 [facility] Basophils/100 WBC Auto (Bld) Ordered By: Sam Mccoy on 10-30-2022 Basophils/100 WBC (Bld) 0.7 % . [facility] Bilirubin Test strip Ql (U)O rdered By: Sam Mccoy on 10-30-2022 Bilirubin Ql (U) Negative Negative [facility] Bilirubin.total [Mass/volume ] in Serum or PlasmaOrdered By: Sam Mccoy on 10-30-2022 Bilirubin [Mass/Vol] 0.6 mg/dL 0.3-1.0 [facility] Calcium [Mass/volume] in Ser um or PlasmaOrdered By: Sam Mccoy on 10-30-2022 Calcium [Mass/Vol] 9.1 mg/dL 8.6-10.3 [facility] Carbon dioxide, total [Moles /volume] in Serum or PlasmaOrdered By: Sam Mccoy on 10-30-2022 CO2 [Moles/Vol] 23.4 mmol/L 21.0-31.[address] [facility] Chloride [Moles/volume] in S rosi or PlasmaOrdered By: Sam Mccoy on 10-30-2022 Chloride [Moles/Vol] 107 mmol/L 98-107 [facility] Color Auto (U)Ordered By: Ambrose Mccoy on 10-30-2022 Color (U) Red Yellow [facility] Creatinine [Mass/volume] in Serum or PlasmaOrdered By: Sam Mccoy on 10-30-2022 Creatinine [Mass/Vol] 1.03 mg/dL 0.70-1.30 [facility] Eosinophils Auto (Bld) [#/Vo l]Ordered By: Sam Mccoy on 10-30-2022 Eosinophils (Bld) [#/Vol] 0.2 10*3/uL 0.0-0.45 [facility] Eosinophils/100 WBC Auto (Bl d)Ordered By: Sam Mccoy on 10-30-2022 Eosinophils/100 WBC (Bld) 2.2 % . [facility] Erythrocyte distribution wid th Auto (RBC) [Ratio]Ordered By: Sam Mccoy on 10-30-2022 Erythrocyte distribution width (RBC) [Ratio] 13.2 % 12.0-14.8 [facility] Globulin Calc (S) [Mass/Vol] Ordered By: Sam Mccoy on 10-30-2022 Globulin (S) [Mass/Vol] 2.8 g/dL [facility] Glucose [Mass/volume] in Ser um or PlasmaOrdered By: Sam Mccoy on 10-30-2022 Glucose [Mass/Vol] 100 mg/dL 70-100 [facility] Comment on above: ADA recommended refe rence rangeRandom Glucose Reference Range is dependent on time and content of last meal. Glucose of more than 200 mg/dL in a nonstressed, ambulatory subject supports the diagnosis of Diabetes Mellitus. Hematocrit Auto (Bld) [Volum e fraction]Ordered By: Sam Mccoy on 10-30-2022 Hematocrit (Bld) [Volume fraction] 44.7 % 38.8-50.0 [facility] Hemoglobin [Mass/volume] in BloodOrdered By: Sam Mccoy on 10-30-2022 Hemoglobin (Bld) [Mass/Vol] 15.0 g/dL 13.0-17.0 [facility] Ketones Auto test strip (U) [Mass/Vol]Ordered By: Sam Mccoy on 10-30-2022 Ketones (U) [Mass/Vol] Negative Negative [facility] - UrinalysisOrder ed By: Sam Mccoy on 10-30-2022 Hyaline casts LM Ql (Urine sed) 0-8 [LPF] 0-8 [facility] Leukocytes [#/volume] correc carl for nucleated erythrocytes in Blood by Automated counOrdered By: Sam Mccoy on 10-30-2022 WBC corrected for nucl RBC Auto (Bld) [#/Vol] 8.8 10*3/uL 4.1-10.5 [facility] Lymphocytes Auto (Bld) [#/Vo l]Ordered By: Sam Mccoy on 10-30-2022 Lymphocytes (Bld) [#/Vol] 2.8 10*3/uL 1.00-4.8 [facility] Lymphocytes/100 WBC Auto (Bl d)Ordered By: Sam Mccoy on 10-30-2022 Lymphocytes/100 WBC (Bld) 31.5 % . [facility] MCH Auto (RBC) [Entitic mass ]Ordered By: Sam Mccoy on 10-30-2022 MCH (RBC) [Entitic mass] 30.1 pg 27.5-35.2 [facility] MCHC Auto (RBC) [Mass/Vol]Or dered By: Sam Mccoy on 10-30-2022 MCHC (RBC) [Mass/Vol] 33.6 g/dL 32.5-35.6 [facility] MCV Auto (RBC) [Entitic vol] Ordered By: Sam Mccoy on 10-30-2022 MCV (RBC) [Entitic vol] 89.5 fL 83.5-101 [facility] Monocyte distribution width [Entitic volume] in Blood by AutomatedOrdered By: Sam Mccoy on 10-30-2022 Monocyte distribution width Auto (Bld) [Entitic vol] 18.04 % 0.00-20.00 [facility] Monocytes Auto (Bld) [#/Vol] Ordered By: Sam Mccoy on 10-30-2022 Monocytes (Bld) [#/Vol] 0.6 10*3/uL 0.0-0.8 [facility] Monocytes/100 WBC Auto (Bld) Ordered By: Sam Mccoy on 10-30-2022 Monocytes/100 WBC (Bld) 6.5 % . [facility] Neutrophils Auto (Bld) [#/Vo l]Ordered By: Sam Mccoy on 10-30-2022 Neutrophils (Bld) [#/Vol] 5.2 10*3/uL 1.8-7.7 [facility] Neutrophils/100 WBC Auto (Bl d)Ordered By: Sam Mccoy on 10-30-2022 Neutrophils/100 WBC (Bld) 59.1 % . [facility] Nitrite Test strip Ql (U)Ord ered By: Sam Mccoy on 10-30-2022 Nitrite Ql (U) Negative Negative [facility] No Panel InformationOrdered By: Sam Mccoy on 10-30-2022 Estimated GFR (CKD-EPI) > 60.0 mL/Min [facility] Creatinine Clearance (Chem 105.52 [facility] Nucleated erythrocytes [Pres ence] in Blood by Automated countOrdered By: Sam Mccoy on 10-30-2022 Nucleated RBC Auto Ql (Bld) 0.1 /100{WBC} 0-0.5 [facility] Platelet mean volume Auto (B ld) [Entitic vol]Ordered By: Sam Mccoy on 10-30-2022 Platelet mean volume (Bld) [Entitic vol] 7.5 fL 6.6-10.1 [facility] Platelets Auto (Bld) [#/Vol] Ordered By: Sam Mccoy on 10-30-2022 Platelets (Bld) [#/Vol] 266 10*3/uL 150-450 [facility] Potassium [Moles/volume] in Serum or PlasmaOrdered By: Sam Mccoy on 10-30-2022 Potassium [Moles/Vol] 3.8 mmol/L 3.5-5.1 [facility] Protein Auto test strip (U) [Mass/Vol]Ordered By: Sam Mccoy on 10-30-2022 Protein (U) [Mass/Vol] 100 mg/dL Negative [facility] Protein [Mass/volume] in Ser um or PlasmaOrdered By: Sam Mccoy on 10-30-2022 Protein [Mass/Vol] 7.1 g/dL 6.4-8.9 [facility] RBC Auto (Bld) [#/Vol]Ordere d By: Sam Mccoy on 10-30-2022 RBC (Bld) [#/Vol] 5.00 10*6/uL 3.90-5.60 [facility] Serum or plasma albumin/glob ulin mass ratioOrdered By: Sam Mccoy on 10-30-2022 Albumin/Globulin [Mass ratio] 1.5 {ratio} [facility] Serum or plasma anion gap de terminationOrdered By: Sam Mccoy on 10-30-2022 Anion gap [Moles/Vol] 11.4 mmol/L 6.0-15.0 [facility] Sodium [Moles/volume] in Ser um or PlasmaOrdered By: Sam Mccoy on 10-30-2022 Sodium [Moles/Vol] 138 mmol/L 136-145 [facility] Specific gravity Auto test s trip (U) [Rel density]Ordered By: Sam Mccoy on 10-30-2022 Specific gravity (U) [Rel density] 1.010 1.001-1.03 0 [facility] Squamous epithelial cells de tection in urine sediment by light microscopyOrdered By: Sam Mccoy on 10-30-2022 Epithelial cells.squamous LM Ql (Urine sed) None seen [HPF] 0-2 [facility] Urea nitrogen [Mass/volume] in Serum or PlasmaOrdered By: Sam Mccoy on 10-30-2022 Urea nitrogen [Mass/Vol] 12 mg/dL 7-25 [facility] Urine bacteria detection by automated methodOrdered By: Sam Mccoy on 10-30-2022 Bacteria Auto Ql (U) None seen None Seen [facility] Urine clarity by refractomet ry automatedOrdered By: Sam Mccoy on 10-30-2022 Clarity Refractometry automated (U) Clear Clear [facility] Urine culture routineOrdered By: Sam Mccoy on 10-30-2022 Bacteria identified Cx Nom (U) No Growth 2 Days [facility] Urine glucose measurement by automated test strip (mass/volume)Ordered By: Sam Mccoy on 10-30-2022 Glucose Auto test strip (U) [Mass/Vol] Normal mg/dL Normal [facility] Urine hemoglobin detection b y automated test stripOrdered By: Sam Mccoy on 10-30-2022 Hemoglobin Auto test strip Ql (U) 3+ Negative [facility] Urine leukocyte esterase det ection by automated test stripOrdered By: Sam Mccoy on 07-03-2023 Leukocyte esterase Auto test strip Ql (U) 3+ Negative [facility] Urobilinogen Auto test strip (U) [Mass/Vol]Ordered By: Sam Mccoy on 10-30-2022 Urobilinogen (U) [Mass/Vol] Normal mg/dL Normal [facility] WBC Auto (Bld) [#/Vol]Ordere d By: Sam Mccoy on 10-30-2022 WBC (Bld) [#/Vol] 8.8 10*3/uL 4.1-10.5 [facility] pH Auto test strip (U)Ordere d By: Sam Mccoy on 10-30-2022 pH (U) 6.0 [pH] 5.0-9.0 [facility] OPERATIVE REPORTon [place] [address] OPERATIVE REPORT PATIENT NAME: CARMELITA EASTMAN : 1975 MED REC NO: [id number] ROOM: ACCOUNT NO: [id number] ADMIT DATE: 10/23/2022 PROVIDER: Fara López MD [...] postoperative KUB. FARA LÓPEZ MD /[id number] Doc#: [id number] CC: Fara López MD [facility] XR ABDOMEN (KUB) (SINGLE AP [...] Elijah Rueda MD 10/11/22 Final result Normal [facility] Basic Metabolic Panelon 06- Anion gap [Moles/Vol] 8 mmol/L Low 9-15 [facility] Comment on above: Performed By: #### T RP5 #### [facility] [address] [place] [address] Calcium [Mass/Vol] 8.4 mg/dL Low 8.5-9.9 [facility] Comment on above: Performed By: #### T RP5 #### [facility] [address] [place] [address] Chloride [Moles/Vol] 106 mmol/L Normal 95-107 [facility] Comment on above: Performed By: #### T RP5 #### [facility] [address] [place] [address] CO2 [Moles/Vol] 25 mmol/L Normal 20-31 [facility] Comment on above: Performed By: #### T RP5 #### [facility] [address] [place] [address] Creatinine [Mass/Vol] 0.97 mg/dL Normal 0.70-1.20 [facility] Comment on above: Performed By: #### T RP5 #### [facility] [address] [place] [address] GFR >60.0 Normal >60 [facility] Comment on above: Result Comment: [...] secretion. Performed By: #### T RP5 #### [facility] [address] [place] [address] Glucose [Mass/Vol] 80 mg/dL Normal 70-99 [facility] Comment on above: Performed By: #### T RP5 #### [facility] [address] [place] [address] Potassium [Moles/Vol] 4.4 mmol/L Normal 3.4-4.9 [facility] Comment on above: Performed By: #### T RP5 #### [facility] [address] [place] [address] Sodium [Moles/Vol] 139 mmol/L Normal 135-144 [facility] Comment on above: Performed By: #### T RP5 #### [facility] [address] [place] [address] Urea nitrogen [Mass/Vol] 10 mg/dL Normal 6-20 [facility] Comment on above: Performed By: #### T RP5 #### [facility] [address] [place] [address] CBC With Platelet and Differ entialon 10-09-2022 Basophils (Bld) [#/Vol] 0.1 10*3/uL Normal 0.0-0.2 [facility] Comment on above: Performed By: #### C BCWD #### [facility] [address] [place] [address] Basophils/100 WBC (Bld) 0.8 % Normal [facility] Comment on above: Performed By: #### C BCWD #### [facility] [address] [place] [address] Eosinophils (Bld) [#/Vol] 0.3 10*3/uL Normal 0.0-0.7 [facility] Comment on above: Performed By: #### C BCWD #### [facility] [address] [place] [address] Eosinophils/100 WBC (Bld) 4.1 % Normal [facility] Comment on above: Performed By: #### C BCWD #### [facility] [address] [place] [address] Erythrocyte distribution width (RBC) [Ratio] 13.3 % Normal 11.5-14.5 [facility] Comment on above: Performed By: #### C BCWD #### [facility] [address] [place] [address] Hematocrit (Bld) [Volume fraction] 44.0 % Normal 42.0-52.0 [facility] Comment on above: Performed By: #### C BCWD #### [facility] [address] [place] [address] Hemoglobin (Bld) [Mass/Vol] 14.4 g/dL Normal 14.0-18.0 [facility] Comment on above: Performed By: #### C BCWD #### [facility] [address] [place] [address] Lymphocytes (Bld) [#/Vol] 2.6 10*3/uL Normal 1.0-4.8 [facility] Comment on above: Performed By: #### C BCWD #### [facility] [address] [place] [address] Lymphocytes/100 WBC (Bld) 40.6 % Normal [facility] Comment on above: Performed By: #### C BCWD #### [facility] [address] [place] [address] MCH (RBC) [Entitic mass] 30.0 pg Normal 27.0-31.3 [facility] Comment on above: Performed By: #### C BCWD #### [facility] [address] [place] [address] MCHC 32.7 % Low 33.0-37.0 [facility] Comment on above: Performed By: #### C BCWD #### [facility] [address] [place] [address] MCV (RBC) [Entitic vol] 91.7 fL Normal 79.0-92.2 [facility] Comment on above: Performed By: #### C BCWD #### [facility] [address] [place] [address] Monocytes (Bld) [#/Vol] 0.5 10*3/uL Normal 0.2-0.8 [facility] Comment on above: Performed By: #### C BCWD #### [facility] [address] [place] [address] Monocytes/100 WBC (Bld) 7.2 % Normal [facility] Comment on above: Performed By: #### C BCWD #### [facility] [address] [place] [address] Neutrophils (Bld) [#/Vol] 3.0 10*3/uL Normal 1.4-6.5 [facility] Comment on above: Performed By: #### C BCWD #### [facility] [address] [place] [address] Neutrophils/100 WBC (Bld) 47.3 % Normal [facility] Comment on above: Performed By: #### C BCWD #### [facility] [address] [place] [address] Platelets (Bld) [#/Vol] 236 10*3/uL Normal 130-400 [facility] Comment on above: Performed By: #### C BCWD #### [facility] [address] [place] [address] RBC (Bld) [#/Vol] 4.80 10*6/uL Normal 4.70-6.10 [facility] Comment on above: Performed By: #### C BCWD #### [facility] [address] [place] [address] WBC (Bld) [#/Vol] 6.3 10*3/uL Normal 4.8-10.8 [facility] Comment on above: Performed By: #### C BCWD #### [facility] [address] [place] [address] CT ABDOMEN PELVIS WO CONTRAS Ton 10-08-2022 [...] Leif Herrmann MD 10/08/22 Final result Normal [facility] Basic Metabolic Panelon 06--2022 Anion gap [Moles/Vol] 11 mmol/L Normal 9-15 [facility] Comment on above: Performed By: #### B MP #### [facility] [address] [place] [address] Calcium [Mass/Vol] 8.8 mg/dL Normal 8.5-9.9 [facility] Comment on above: Performed By: #### B MP #### [facility] [address] [place] [address] Chloride [Moles/Vol] 106 mmol/L Normal 95-107 [facility] Comment on above: Performed By: #### B MP #### [facility] [address] [place] [address] CO2 [Moles/Vol] 22 mmol/L Normal 20-31 [facility] Comment on above: Performed By: #### B MP #### [facility] [address] [place] [address] Creatinine [Mass/Vol] 0.87 mg/dL Normal 0.70-1.20 [facility] Comment on above: Performed By: #### B MP #### [facility] [address] [place] [address] GFR >60.0 Normal >60 [facility] Comment on above: Result Comment: [...] secretion. Performed By: #### B MP #### [facility] [address] [place] [address] Glucose [Mass/Vol] 123 mg/dL Critically high 70-99 [facility] Comment on above: Performed By: #### B MP #### [facility] [address] [place] [address] Potassium [Moles/Vol] 4.8 mmol/L Normal 3.4-4.9 [facility] Comment on above: Performed By: #### B MP #### [facility] [address] [place] [address] Sodium [Moles/Vol] 139 mmol/L Normal 135-144 [facility] Comment on above: Performed By: #### B MP #### [facility] [address] [place] [address] Urea nitrogen [Mass/Vol] 13 mg/dL Normal 6-20 [facility] Comment on above: Performed By: #### B MP #### [facility] [address] [place] [address] CBC With Platelet and Differ entialon 10-07-2022 Basophils (Bld) [#/Vol] 0.0 10*3/uL Normal 0.0-0.2 [facility] Comment on above: Performed By: #### T RP5 #### [facility] [address] [place] [address] Basophils/100 WBC (Bld) 0.2 % Normal [facility] Comment on above: Performed By: #### T RP5 #### [facility] [address] [place] [address] Eosinophils (Bld) [#/Vol] 0.0 10*3/uL Normal 0.0-0.7 [facility] Comment on above: Performed By: #### T RP5 #### [facility] [address] [place] [address] Eosinophils/100 WBC (Bld) 0.0 % Normal [facility] Comment on above: Performed By: #### T RP5 #### [facility] [address] [place] [address] Erythrocyte distribution width (RBC) [Ratio] 12.8 % Normal 11.5-14.5 [facility] Comment on above: Performed By: #### T RP5 #### [facility] [address] [place] [address] Hematocrit (Bld) [Volume fraction] 46.0 % Normal 42.0-52.0 [facility] Comment on above: Performed By: #### T RP5 #### [facility] [address] [place] [address] Hemoglobin (Bld) [Mass/Vol] 15.0 g/dL Normal 14.0-18.0 [facility] Comment on above: Performed By: #### T RP5 #### [facility] [address] [place] [address] Lymphocytes (Bld) [#/Vol] 1.1 10*3/uL Normal 1.0-4.8 [facility] Comment on above: Performed By: #### T RP5 #### [facility] [address] [place] [address] Lymphocytes/100 WBC (Bld) 10.5 % Normal [facility] Comment on above: Performed By: #### T RP5 #### [facility] [address] [place] [address] MCH (RBC) [Entitic mass] 30.1 pg Normal 27.0-31.3 [facility] Comment on above: Performed By: #### T RP5 #### [facility] [address] [place] [address] MCHC 32.6 % Low 33.0-37.0 [facility] Comment on above: Performed By: #### T RP5 #### [facility] [address] [place] [address] MCV (RBC) [Entitic vol] 92.2 fL Normal 79.0-92.2 [facility] Comment on above: Performed By: #### T RP5 #### [facility] [address] [place] [address] Monocytes (Bld) [#/Vol] 0.3 10*3/uL Normal 0.2-0.8 [facility] Comment on above: Performed By: #### T RP5 #### [facility] [address] [place] [address] Monocytes/100 WBC (Bld) 3.0 % Normal [facility] Comment on above: Performed By: #### T RP5 #### [facility] [address] [place] [address] Neutrophils (Bld) [#/Vol] 9.5 10*3/uL Critically high 1.4-6.5 [facility] Comment on above: Performed By: #### T RP5 #### [facility] [address] [place] [address] Neutrophils/100 WBC (Bld) 86.3 % Normal [facility] Comment on above: Performed By: #### T RP5 #### [facility] [address] [place] [address] Platelets (Bld) [#/Vol] 251 10*3/uL Normal 130-400 [facility] Comment on above: Performed By: #### T RP5 #### [facility] [address] [place] [address] RBC (Bld) [#/Vol] 4.99 10*6/uL Normal 4.70-6.10 [facility] Comment on above: Performed By: #### T RP5 #### [facility] [address] [place] [address] WBC (Bld) [#/Vol] 11.0 10*3/uL Critically high 4.8-10.8 [facility] Comment on above: Performed By: #### T RP5 #### [facility] [address] [place] [address] CBC With Platelet and Differ entialon 10-06-2022 Basophils (Bld) [#/Vol] 0.1 10*3/uL Normal 0.0-0.2 [facility] Comment on above: Performed By: #### C BCWD #### [facility] [address] [place] [address] Basophils/100 WBC (Bld) 1.0 % Normal [facility] Comment on above: Performed By: #### C BCWD #### [facility] [address] [place] [address] Eosinophils (Bld) [#/Vol] 0.1 10*3/uL Normal 0.0-0.7 [facility] Comment on above: Performed By: #### C BCWD #### [facility] [address] [place] [address] Eosinophils/100 WBC (Bld) 1.8 % Normal [facility] Comment on above: Performed By: #### C BCWD #### [facility] [address] [place] [address] Erythrocyte distribution width (RBC) [Ratio] 13.7 % Normal 11.5-14.5 [facility] Comment on above: Performed By: #### C BCWD #### [facility] [address] [place] [address] Hematocrit (Bld) [Volume fraction] 44.5 % Normal 42.0-52.0 [facility] Comment on above: Performed By: #### C BCWD #### [facility] [address] [place] [address] Hemoglobin (Bld) [Mass/Vol] 14.5 g/dL Normal 14.0-18.0 [facility] Comment on above: Performed By: #### C BCWD #### [facility] [address] [place] [address] Lymphocytes (Bld) [#/Vol] 2.5 10*3/uL Normal 1.0-4.8 [facility] Comment on above: Performed By: #### C BCWD #### [facility] [address] [place] [address] Lymphocytes/100 WBC (Bld) 30.2 % Normal [facility] Comment on above: Performed By: #### C BCWD #### [facility] [address] [place] [address] MCH (RBC) [Entitic mass] 30.3 pg Normal 27.0-31.3 [facility] Comment on above: Performed By: #### C BCWD #### [facility] [address] [place] [address] MCHC 32.6 % Low 33.0-37.0 [facility] Comment on above: Performed By: #### C BCWD #### [facility] [address] [place] [address] MCV (RBC) [Entitic vol] 92.9 fL Critically high 79.0-92.2 [facility] Comment on above: Performed By: #### C BCWD #### [facility] [address] [place] [address] Monocytes (Bld) [#/Vol] 0.6 10*3/uL Normal 0.2-0.8 [facility] Comment on above: Performed By: #### C BCWD #### [facility] [address] [place] [address] Monocytes/100 WBC (Bld) 6.8 % Normal [facility] Comment on above: Performed By: #### C BCWD #### [facility] [address] [place] [address] Neutrophils (Bld) [#/Vol] 5.0 10*3/uL Normal 1.4-6.5 [facility] Comment on above: Performed By: #### C BCWD #### [facility] [address] [place] [address] Neutrophils/100 WBC (Bld) 60.2 % Normal [facility] Comment on above: Performed By: #### C BCWD #### [facility] [address] [place] [address] Platelets (Bld) [#/Vol] 245 10*3/uL Normal 130-400 [facility] Comment on above: Performed By: #### C BCWD #### [facility] [address] [place] [address] RBC (Bld) [#/Vol] 4.80 10*6/uL Normal 4.70-6.10 [facility] Comment on above: Performed By: #### C BCWD #### [facility] [address] [place] [address] WBC (Bld) [#/Vol] 8.2 10*3/uL Normal 4.8-10.8 [facility] Comment on above: Performed By: #### C BCWD #### [facility] [address] [place] [address] Basophils (Bld) [#/Vol] 0.1 10*3/uL Normal 0.0-0.2 [facility] Comment on above: Performed By: #### T RP5 #### [facility] [address] [place] [address] Basophils/100 WBC (Bld) 1.1 % Normal [facility] Comment on above: Performed By: #### T RP5 #### [facility] [address] [place] [address] Eosinophils (Bld) [#/Vol] 0.2 10*3/uL Normal 0.0-0.7 [facility] Comment on above: Performed By: #### T RP5 #### [facility] [address] [place] [address] Eosinophils/100 WBC (Bld) 2.8 % Normal [facility] Comment on above: Performed By: #### T RP5 #### [facility] [address] [place] [address] Erythrocyte distribution width (RBC) [Ratio] 13.4 % Normal 11.5-14.5 [facility] Comment on above: Performed By: #### T RP5 #### [facility] [address] [place] [address] Hematocrit (Bld) [Volume fraction] 47.4 % Normal 42.0-52.0 [facility] Comment on above: Performed By: #### T RP5 #### [facility] [address] [place] [address] Hemoglobin (Bld) [Mass/Vol] 15.7 g/dL Normal 14.0-18.0 [facility] Comment on above: Performed By: #### T RP5 #### [facility] [address] [place] [address] Lymphocytes (Bld) [#/Vol] 3.3 10*3/uL Normal 1.0-4.8 [facility] Comment on above: Performed By: #### T RP5 #### [facility] [address] [place] [address] Lymphocytes/100 WBC (Bld) 37.8 % Normal [facility] Comment on above: Performed By: #### T RP5 #### [facility] [address] [place] [address] MCH (RBC) [Entitic mass] 30.5 pg Normal 27.0-31.3 [facility] Comment on above: Performed By: #### T RP5 #### [facility] [address] [place] [address] MCHC 33.0 % Normal 33.0-37.0 [facility] Comment on above: Performed By: #### T RP5 #### [facility] [address] [place] [address] MCV (RBC) [Entitic vol] 92.4 fL Critically high 79.0-92.2 [facility] Comment on above: Performed By: #### T RP5 #### [facility] [address] [place] [address] Monocytes (Bld) [#/Vol] 0.6 10*3/uL Normal 0.2-0.8 [facility] Comment on above: Performed By: #### T RP5 #### [facility] [address] [place] [address] Monocytes/100 WBC (Bld) 7.0 % Normal [facility] Comment on above: Performed By: #### T RP5 #### [facility] [address] [place] [address] Neutrophils (Bld) [#/Vol] 4.5 10*3/uL Normal 1.4-6.5 [facility] Comment on above: Performed By: #### T RP5 #### [facility] [address] [place] [address] Neutrophils/100 WBC (Bld) 51.3 % Normal [facility] Comment on above: Performed By: #### T RP5 #### [facility] [address] [place] [address] Platelets (Bld) [#/Vol] 271 10*3/uL Normal 130-400 [facility] Comment on above: Performed By: #### T RP5 #### [facility] [address] [place] [address] RBC (Bld) [#/Vol] 5.13 10*6/uL Normal 4.70-6.10 [facility] Comment on above: Performed By: #### T RP5 #### [facility] [address] [place] [address] WBC (Bld) [#/Vol] 8.8 10*3/uL Normal 4.8-10.8 [facility] Comment on above: Performed By: #### T RP5 #### [facility] [address] [place] [id number] CT ABDOMEN PELVIS WO CONTRVERN Ton 10-06-2022 CT ABDOMEN PELVIS WO CONTRAST [...] Darlene Varela MD 10/06/22 Final result Normal [facility] Comprehensive Metabolic Pane narayan 10-06-2022 Albumin [Mass/Vol] 4.3 g/dL Normal 3.5-4.6 [facility] Comment on above: Performed By: #### B NPPR #### [facility] [address] [place] [address] ALP [Catalytic activity/Vol] 70 U/L Normal 35-104 [facility] Comment on above: Performed By: #### B NPPR #### [facility] [address] [place] [address] ALT [Catalytic activity/Vol] 21 U/L Normal 0-41 [facility] Comment on above: Performed By: #### B NPPR #### [facility] [address] [place] [address] Anion gap [Moles/Vol] 9 mmol/L Normal 9-15 [facility] Comment on above: Performed By: #### B NPPR #### [facility] [address] [place] [address] AST [Catalytic activity/Vol] 19 U/L Normal 0-40 [facility] Comment on above: Performed By: #### B NPPR #### [facility] [address] [place] [address] Bilirubin [Mass/Vol] 0.3 mg/dL Normal 0.2-0.7 [facility] Comment on above: Performed By: #### B NPPR #### [facility] [address] [place] [address] Calcium [Mass/Vol] 9.4 mg/dL Normal 8.5-9.9 [facility] Comment on above: Performed By: #### B NPPR #### [facility] [address] [place] [address] Chloride [Moles/Vol] 106 mmol/L Normal 95-107 [facility] Comment on above: Performed By: #### B NPPR #### [facility] [address] [place] [address] CO2 [Moles/Vol] 25 mmol/L Normal 20-31 [facility] Comment on above: Performed By: #### B NPPR #### [facility] [address] [place] [address] Creatinine [Mass/Vol] 1.19 mg/dL Normal 0.70-1.20 [facility] Comment on above: Performed By: #### B NPPR #### [facility] [address] [place] [address] GFR >60.0 Normal >60 [facility] Comment on above: Result Comment: [...] secretion. Performed By: #### B NPPR #### [facility] [address] [place] [address] Globulin (S) [Mass/Vol] 2.7 g/dL Normal 2.3-3.5 [facility] Comment on above: Performed By: #### B NPPR #### [facility] [address] [place] [address] Glucose [Mass/Vol] 104 mg/dL Critically high 70-99 [facility] Comment on above: Performed By: #### B NPPR #### [facility] [address] [place] [address] Potassium [Moles/Vol] 3.8 mmol/L Normal 3.4-4.9 [facility] Comment on above: Performed By: #### B NPPR #### [facility] [address] [place] [address] Protein [Mass/Vol] 7.0 g/dL Normal 6.3-8.0 [facility] Comment on above: Performed By: #### B NPPR #### [facility] [address] [place] [address] Sodium [Moles/Vol] 140 mmol/L Normal 135-144 [facility] Comment on above: Performed By: #### B NPPR #### [facility] [address] [place] [address] Urea nitrogen [Mass/Vol] 16 mg/dL Normal 6-20 [facility] Comment on above: Performed By: #### B NPPR #### [facility] [address] [place] [address] FLUORO FOR SURGICAL PROCEDUR ESon 10-06-2022 FLUORO [...] Luis Guerrero MD 10/06/22 Final result Normal [facility] Lactic Acidon 10-06-2022 Lactate [Moles/Vol] 1.1 mmol/L Normal 0.5-2.2 [facility] Comment on above: Performed By: #### T RP5 #### [facility] [address] [place] [address] OPERATIVE REPORTon 3 OPERATIVE REPORT [facility] [address] [place] [address] OPERATIVE REPORT PATIENT NAME: CARMELITA EASTMAN : 1975 MED REC NO: [id number] ROOM: ACCOUNT NO: [id number] ADMIT DATE: 10/06/2022 PROVIDER: Fara López MD DATE OF PROCEDURE: 10/06/2022 PREOPERATIVE DIAGNOSIS: Left 6-7 mm proximal ureteral stone. POSTOPERATIVE DIAGNOSIS: Left 6-7 mm proximal ureteral stone. PROCEDURE PERFORMED: Cystoscopy with left retrograde pyelogram, left 6-Stateless x 26 cm double-J stent insertion. SURGEON: [...] Uro-Jet was guided per urethra. Then, a 21-Stateless cystoscope was then guided atraumatically through the urethra into the bladder. The urethra appeared unremarkable. Prostatic urethra appeared unremarkable. Upon entering the bladder, bladder was drained of clear yellow urine. There were no bladder wall tumors. Both ureteral orifices were normal position with a clear efflux of urine. At conclusion of this, a 6-Stateless end-hole flexible tip ureteral catheter was guided [...] At this point, attempts to place the 6-Stateless end-hole ureteral catheter were met with difficulty due to the impacted nature of the stone. Therefore, the end-hole catheter was removed. A 6-Stateless x 26-cm tapered tipped double-J stent was [...] discuss definitive stone management. FARA LÓPEZ MD /[email or web address] Doc#: [id number] CC: Fara López MD Normal [facility] Urinalysis, reflex to cultur tamara 10-06-2022 Urine Reflexed to Culture Not Indicated Normal [facility] Comment on above: Performed By: #### U AR #### [facility] [address] [place] [address] Bilirubin Ql (U) Negative Normal Negative [facility] Comment on above: Performed By: #### U AR #### [facility] [address] [place] [address] Clarity (U) Clear Normal Clear [facility] Comment on above: Performed By: #### U AR #### [facility] [address] [place] [address] Color (U) Yellow Normal Straw/Dunn [facility] Comment on above: Performed By: #### U AR #### [facility] [address] [place] [address] Glucose Ql (U) Negative Normal Negative [facility] Comment on above: Performed By: #### U AR #### [facility] [address] [place] [address] Hemoglobin Ql (U) LARGE Abnormal Negative [facility] Comment on above: Performed By: #### U AR #### [facility] [address] [place] [address] Ketones Ql (U) TRACE Abnormal Negative [facility] Comment on above: Performed By: #### U AR #### [facility] [address] [place] [address] Leukocyte esterase Test strip Ql (U) Negative Normal Negative [facility] Comment on above: Performed By: #### U AR #### [facility] [address] [place] [address] Nitrite Ql (U) Negative Normal Negative [facility] Comment on above: Performed By: #### U AR #### [facility] [address] [place] [address] pH (U) 5.5 [pH] Normal 5.0-9.0 [facility] Comment on above: Performed By: #### U AR #### [facility] [address] [place] [address] Protein Ql (U) 100 mg/dL Abnormal Negative [facility] Comment on above: Performed By: #### U AR #### [facility] [address] [place] [address] Specific gravity (U) [Rel density] 1.028 Normal 1.005-1.03 [facility] Comment on above: Performed By: #### U AR #### [facility] [address] [place] [address] Urobilinogen Qn (U) 0.2 {Jo'U}/dL Normal < 2.0 [facility] Comment on above: Performed By: #### U AR #### [facility] [address] [place] [address] Urine Microscopicon 10-07-19 23 Crystals LM Nom (Urine sed) 2+ Ca. Oxalate Abnormal None Seen [facility] Comment on above: Performed By: #### T RP5 #### [facility] [address] [place] [address] Bacteria LM.HPF (Urine sed) [#/Area] Negative Normal Negative [facility] Comment on above: Performed By: #### T RP5 #### [facility] [address] [place] [address] Urine Epithelial Cells Auto 0-2 Normal 0-5 [facility] Comment on above: Performed By: #### T RP5 #### [facility] [address] [place] [address] Urine Hyaline Casts Auto 1-3 Normal 0-5 [facility] Comment on above: Performed By: #### T RP5 #### [facility] [address] [place] [address] Urine RBC Auto 10-20 Abnormal 0-5 [facility] Comment on above: Performed By: #### T RP5 #### [facility] [address] [place] [address] Urine WBC Auto 3-5 Normal 0-5 [facility] Comment on above: Performed By: #### T RP5 #### [facility] [address] [place] [address] FL GUIDED FOR SPINE INJECTon 06-15-2022 FL GUIDED FOR SPINE INJECT Final result Normal [facility] Clinical Event Note-discharg e follow [...] by Francisca Vargas (PT SVS REP) Normal [facility] BASIC METABOLIC PANELon 04-30 Anion gap [Moles/Vol] 9 mmol/L Low 10 - 20 [facility] Comment on above: Performed By: #### B MP #### [address] [id number] Calcium [Mass/Vol] 8.4 mg/dL Low 8.6 - 10.3 [facility] Comment on above: Performed By: #### B MP #### [address] [id number] Chloride [Moles/Vol] 106 mmol/L Normal 98 - 107 [facility] Comment on above: Performed By: #### B MP #### [address] [id number] Creatinine [Mass/Vol] 1.03 mg/dL Normal 0.50 - 1.30 [facility] Comment on above: Performed By: #### B MP #### [address] [id number] GFR/1.73 sq M.predicted among non-blacks MDRD (S/P/Bld) [Vol rate/Area] 90 mL/min/{1.73_m2} Normal >90 [facility] Comment on above: Result Comment: CALC ULATIONS OF ESTIMATED GFR ARE PERFORMED USING THE 2020 CKD-EPI STUDY REFIT EQUATION WITHOUT THE RACE VARIABLE FOR THE IDMS-TRACEABLE CREATININE METHODS. https://jasn.asnjournals.org/content/early/ASN.24634 96811 Performed By: #### B MP #### [address] [id number] Glucose [Mass/Vol] 100 mg/dL High 74 - 99 [facility] Comment on above: Performed By: #### B MP #### [address] [id number] HCO3 (Bld) [Moles/Vol] 28 mmol/L Normal 21 - 32 [facility] Comment on above: Performed By: #### B MP #### [address] [id number] Potassium [Moles/Vol] 4.1 mmol/L Normal 3.5 - 5.3 [facility] Comment on above: Performed By: #### B MP #### [address] [id number] Sodium [Moles/Vol] 139 mmol/L Normal 136 - 145 [facility] Comment on above: Performed By: #### B MP #### [address] [id number] Urea nitrogen [Mass/Vol] 20 mg/dL Normal 6 - 23 [facility] Comment on above: Performed By: #### B MP #### [address] [id number] C-REACTIVE PROTEINon 023 C-REACTIVE PROTEIN 0.68 mg/dL Normal [facility] Comment on above: Result Comment: REF VALUE < 1.00 Performed By: #### C RP #### [address] [id number] CBC AND DIFFERENTIALon 05-18 % AUTOMATED IMMATURE GRAN 0.4 % Normal 0.0 - 0.9 [facility] Comment on above: Result Comment: Yary ture Granulocyte Count (IG) includes promyelocytes, myelocytes and metamyelocytes but does not include bands. Percent differential counts (%) should be interpreted in the context of the absolute cell counts (cells/L). Performed By: #### C BCDF #### [address] [id number] Basophils (Bld) [#/Vol] 0.04 10*3/uL Normal 0.00 - 0.10 [facility] Comment on above: Performed By: #### C BCDF #### [address] [id number] Basophils/100 WBC (Bld) 0.5 % Normal 0.0 - 2.0 [facility] Comment on above: Performed By: #### C BCDF #### [address] [id number] Eosinophils (Bld) [#/Vol] 0.22 10*3/uL Normal 0.00 - 0.70 [facility] Comment on above: Performed By: #### C BCDF #### [address] [id number] Eosinophils/100 WBC (Bld) 2.8 % Normal 0.0 - 6.0 [facility] Comment on above: Performed By: #### C BCDF #### [address] [id number] Erythrocyte distribution width (RBC) [Ratio] 13.0 % Normal 11.5 - 14.5 [facility] Comment on above: Performed By: #### C BCDF #### [address] [id number] Hematocrit (Bld) [Volume fraction] 43.0 % Normal 41.0 - 52.0 [facility] Comment on above: Performed By: #### C BCDF #### [address] [id number] Hemoglobin (Bld) [Mass/Vol] 14.1 g/dL Normal 13.5 - 17.5 [facility] Comment on above: Performed By: #### C BCDF #### [address] [id number] Lymphocytes (Bld) [#/Vol] 2.21 10*3/uL Normal 1.20 - 4.80 [facility] Comment on above: Performed By: #### C BCDF #### [address] [id number] Lymphocytes/100 WBC (Bld) 28.4 % Normal 13.0 - 44.0 [facility] Comment on above: Performed By: #### C BCDF #### [address] [id number] MCHC (RBC) [Mass/Vol] 32.8 g/dL Normal 32.0 - 36.0 [facility] Comment on above: Performed By: #### C BCDF #### [address] [id number] MCV (RBC) [Entitic vol] 91 fL Normal 80 - 100 [facility] Comment on above: Performed By: #### C BCDF #### [address] [id number] Monocytes (Bld) [#/Vol] 0.53 10*3/uL Normal 0.10 - 1.00 [facility] Comment on above: Performed By: #### C BCDF #### [address] [id number] Monocytes/100 WBC (Bld) 6.8 % Normal 2.0 - 10.0 [facility] Comment on above: Performed By: #### C BCDF #### [address] [id number] Neutrophils (Bld) [#/Vol] 4.74 10*3/uL Normal 1.20 - 7.70 [facility] Comment on above: Performed By: #### C BCDF #### [address] [id number] Neutrophils/100 WBC (Bld) 61.1 % Normal 40.0 - 80.0 [facility] Comment on above: Performed By: #### C BCDF #### [address] [id number] Platelets (Bld) [#/Vol] 236 10*3/uL Normal 150 - 450 [facility] Comment on above: Performed By: #### C BCDF #### [address] [id number] RBC 4.71 x10E12/L Normal 4.50 - 5.90 [facility] Comment on above: Performed By: #### C BCDF #### [address] [id number] WBC (Bld) [#/Vol] 7.8 10*3/uL Normal 4.4 - 11.3 [facility] Comment on above: Performed By: #### C BCDF #### [address] [id number] Provider Note - ED v3on 04-30 Provider [...] SIGNS: T PRBP SpO2O2(LPM) %FiO2 Method 18-May-2022 16:31:00-3987479/72 98 room air, no respiratory support 18-May-2022 16:30:00-1036969/72 98 room air, no respiratory support 18-May-2022 13:06:00-8367627/ 97 room air, no respiratory support 18-May-2022 10:57:00-4150149/92 94 MDM MDM/ED COURSE: Initial physical exam [...] hours to receive a call back from [employer], eventually they did notify me that the nerve stimulator is not MRI compatible. I did read discussed the patient with Dr. Bryant multiple times, recomme (more content not included)... Normal [facility] Risk Screen - Adult Emergenc yon 05-18-2022 Risk Screen - Adult Emergency Preferred Language: Preferred Language: Preferred Language for Discussing Health Care (patient/designee)Irish Patient Preferred Pharmacy: Patient Preferred Pharmacy Statement: [...] Learning Preferencesverbal instruction Cultural Considerationsnone Developmental Considerationsnone Mosque Considerationsnone Learning Assessment (Other Learner): Learning Assessment (Other Learner): Other learner availableno Pressure Injury/TB/Substance: Pressure Injury: Pressure Injury Present on Admissionno Do you have a coughno Smoking Statusnever smoker Alcohol Usedenies Drug Usedenies Drug 2 Usedenies Admission Risk Screen: Significant IndicatorsComplete CAGE: CAGE: Is this an injured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 XVyVkeih1yxs1sxnXq3KtC4JL MltyWmnVstLUU0p9KwSa21N07 s IHdpZHRoPSIxNSUiIHZhbGlnb m9kzC3aHx4+IJPdbVR9yVU3fU 2xBnRpDuB4VSouO901MaOtjTF v Qjbzl4sil7vxiVt0RwVwZPEys dCfzTcrJBM5k4SgYn17D8VtiQ pal7ZkRev3hb24hGRfq2Y6gTR 9 K6PcOMDemlmqwOPecXanQC7pM TQkbdhkXTRmhL8lKCZmT1s0Il InObV1UXmaP3VphdW7CDRorPT g NKtxTOU2T27jy6G1RYRpMVHzM XZ8dZS5wS9tvWcqouwpbPLfdD cyhfQhaUneNDuhINysY726IWN v yLfhAAWdlH1oVGWktWGqgNroV I6vPPEzdvvbVpaXCBJJSBJRLR OLTUlzQUxYTM21I6LmVjd3TGT z hMjtQR8zgACvKFilCj9iiIxof KsxBH9vLCZkhswmRAPurS2kHR TigLWtzUtdHB6sWTZuxxxfj05 0 HoHuPDI6MKYssHFfS6WsqU6vT kIcSLHkVBYyM5RuqJFwUCaaK6 06VRelLjW4LJAaerDaD8AvLDP s nXodNjB3t2V5Ne2jOG7kXq9sB Iu8JO02XU31pNQxr7S3eMS7X7 DjNRIficzkywvhfIC8ELDjPQU w cN21nZNjUMcnXv3rn9B8z198G OEzLQUobR51Mh6oaAxyVOLqdJ YHyD7tduimu6ruzpajNlVhTAL w HSj8QKg3YAMbaZrvXqHrINZ1K kS9OOB8hTTagQ6qbMrssclyxH 9wOyc+HSSxRNXnnuU5S8DkZsp 0 OVHcrRjjDL1fpSTjUFciNe2hc PckeYphDK4lQLGuxdoaJGYloG 8sXCGumUMhyQmlOE5jJHLwete m j593JvMpONP4PPAqvRWwE1Cvg E9jSaJcCLKvNQGnV5LsaUIsNM mwB799GIilSwW9YKSjofEdM9X s CYZtkVofQrQ9p4O8Jk7IXGjAK B08LC46kNXrs1L6kHR0X9ZfUE VabvasbyiemYT5IKOcNFNrwR1 7 iWYiBZgdBf6ol2N2a435LJKkD RIbdU24Lk0nlJbkJILiuQUYaY 5wlenwm1bncojqGxYeYEFxEJi 0 VBs3VYMsrVlqXgGkNKJ9AuV5F HY8oTWcoK3fxTbwicxlrN7sGc c+K0A1Y1UaCsgjhOZ+QK66KYQ s AD13tJGdtKVth3tajAx4GkEhU LYdWTA5vFiuOHrrt4KkYDRcB2 6qcPRlj0D1XRVwtDrpnSNeVyR l oZM7qY6bNBpzshngm7fitkkjE tfqn3aknx88mC18Z05uDSgvKB EsSVXtCWYiXLAqaLgdfr7kjO4 w Ii8+ICQxlTX4bCG3iC8dHkQcB lE1NEndS444BzNyeFVjHjlsm9 hsg1yesXt8EzQwTCQdcrFvwZo u JGB2f5CqUd94S86rXCbqBBMhO CGnXNGiXLDcjXmoxg4xiT2rUs 8+UK8eo9hhyd40qN63fSD+PHR k WXC6jQhtXLevUVIxxZ6oCTeqX lA1LZZbKzTfwX62oCQeJBptCx 0klGcafEsgYP4zQRKslfdba08 0 PrZas1rdTNRspEYpPSchMKB5Q 58nv7M4KZGuBNPgAXD5dLD0dU 1hbGlnbjogbGVmdDsgdmVydGl j TWceNTrrH178HJCtnKvgAgMac PLvW7ggygUIWL0cFyccnZF+PH UlFER6cDsaHIpnMFLcpB7mTRM p K7j2OtRqRvX6GHcgS9EzxpF0T WFhpOJwYQWtgLAUzA0wnbclu9 ixofblMbJqZZUfWIz2OVq6NDC s mJfwEdDmFOP1EnX4EQM8bWLtb H1orNlvuweaqN3eUgn+RklOOj wvdGQ+NCWoJZO9fXeaDYsnLPL k uD6bOBNaH9n2SvYdGkB4PMbhI 2SgcbV6NSEztUChEEOuoFIAeT 7ejjybq5yanqamKuTgJKMxPRj 0 CGm8XHTdeTmnVrMzAVR6YmF6U GT2wFGcxM7zeQpmzlyzsC7gWc c+TVJOOjwvdGQ+HXNePBT0vWv l HLgsHYCptH5kFCXzZ5k1SyGzQ sC2BYxjR8GgpkV8MCWsgQKtDY BgbXZIdM7xaftlw5gcqyypFaM w FGSqIFj2HLm5EDFanVqtZiOsX RB7AjL9HNN5aZKfdV3tsJqflr rzzD2vHyx+IRL5UNX7EM82AE3 8 H5LsDtlnwUPydXT+PHRhYmxlI HdpZHRoPScxMDAlJyBzdHlsZT 4sDw4wSQEcCTAwtVwcoNYpYtM j b2x (more content not included)... [facility] Provider Orderson 11-29-2020 Provider Orders [id number] [facility] Outside Recordson 11-25-2020 Outside Records [id number]#[id number] [facility] ED Clinical Summaryon 2020 ED Clinical Summary [facility] ? Urgent Care [address] [place] [address] Clinical Summary PERSON INFORMATION Name: CARMELITA EASTMAN Age: 45 Years Sex: MALE : 1975 MRN: Acct#: Visit Reason: Medical screening exam; [facility] F/U- RT ELBOW INJURY Arrival: 11/24/2020 11:00:39 Discharge: 11/24/2020 12:16:00 LOS: 000 01:16 Check In: 11/24/2020 11:00:39 Checkout: 11/24/2020 12:16:00 Address: [address] [place] [address] PCP: Misbah Donahue PROVIDER INFORMATION Provider Role Assigned Unassigned Irena Weinberg PA-C ED PA 11/24/2020 11:08:08 Katy Harvey [employer] SCI[employer] TEACHER Nurse 11/24/2020 11:19:50 VITALS INFORMATION Vital Sign [...] verbalizes understanding of instructions given Comment: Normal [facility] ED Patient Summaryon 021 ED Patient Summary [facility] ? Urgent Care [address] [place] [address] PATIENT DISCHARGE INSTRUCTIONS Patient Information Name: CARMELITA EASTMAN Age: 45 Years Date of : 1975 Reason For Visit: Medical screening exam; [facility] F/U- RT ELBOW INJURY Arrival Time: 11/24/2020 11:00:39 Primary Care Physician: Misbah Donahue Attending Physician: Irena Weinberg PA-C Comment: Patient Education With: Address: When: Return to this practice Comments: December 07 at 5 p.m. Medication Information: The exam and treatment you received today in the [facility] Emergency Department were for an urgent problem and are not intended as complete care. It is important for you to follow up with a doctor, nurse practitioner, or physician?s assistant toddler teacher for ongoing care. If your symptoms become [...] so we can reach you if necessary. [facility] Emergency Department has provided you with a complete list of medications post discharge. Please inform your health and physical education professor/provider of your visit and for further instruction [...] of left forearm (S50.12XA) Medical screening exam ([id number]) Sprain of right elbow (S53.401A) Strain of [...] sign any legal documents Reason for Visit: [facility] f/u appt. right elbow injury Allergies: Substance [...] for Disease Control and Prevention December 2013 [facility] Urgent Care Note- Provideron 11-24-2020 Urgent Care Note- Provider Patient: CARMELITA EASTMAN Age: 45 years Sex: MALE : 1975 Associated Diagnoses: Strain of right elbow and forearm; Sprain of right elbow; Abrasion of left forearm; Contusion of left forearm Author: Irena Weinberg PA-C Basic Information Additional information: Chief Complaint from Nursing Triage Note : Chief Complaint 11/24/2020 11:21 EDT Chief Complaint [facility] f/u appt. right elbow injury . 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 On 11/[address] the patrol judge ordered an immediate arrest. When he was [...] recorded.. Surgical history: Facet joint nerve block ([id number]) on 10/27/2020 at 45 Years. Comments: 10/27/2020 9:10 Araseli Lord BILATERAL LUMBAR MEDIAL BRANCH BLOCK T12,L1,L2,L3 Epidural steroid injection ([id number]) on 09/15/2020 at 45 Years. Comments: 09/15/2020 10:13 Araseli Lord CAUDAL EPIDURAL STEROID INJECTION Stimulator, device ([id number]) on 04/30/2014 at 38 Years. Comments: 09/22/2020 9:08 Swapna Goodwin stimulator low back placed 2015 Fusion of L4,L5,S1 fused ([id number]) on 04/30/2007 at 31 Years. Cage ([id number]). Comments: 09/22/2020 9:08 Swapna Goodwin bilateral fused [...] bony TTP (more content not included)... Normal [facility] Urgent Care [place] 021 Urgent Care Record [facility] ? Urgent Care [address] [place] [address] PATIENT DISCHARGE INSTRUCTIONS Patient Information Name: CARMELITA EASTMAN Age: 45 Years Date of : 1975 Reason For Visit: Medical screening exam; [facility] F/U- RT ELBOW INJURY Arrival Time: 11/24/2020 11:00:39 Primary Care Physician: Misbah Donahue Attending Physician: Irena Weinberg PA-C Comment: Visit Diagnosis: Diagnoses This Visit Abrasion of left forearm (S50.812A) Contusion of left forearm (S50.12XA) Medical screening exam ([id number]) Sprain of right elbow (S53.401A) Strain of [...] and treatment you received today in the [facility] Urgent [facility] were for an urgent problem and are not intended as complete care. It is important for you to follow up with a doctor, nurse practitioner, or physician?s assistant toddler teacher for ongoing care. If your symptoms become [...] so we can reach you if necessary. [facility] Urgent Care has provided you with a complete list of medications post discharge. Please inform your health and physical education professor/provider of your visit and for further instruction [...] for Disease Control and Prevention December 2013 [facility] Billing Authorizationson Billing Authorizations [id number]#1.00OTGTI [facility] Provider Orderson 11-22-2020 Provider Orders [id number]#1.00OTGTI [facility] Provider Orders [id number]#1.00OTGTI [facility] Coding Summaryon 11-19-2020 Coding Summary HTMLBase 64 SpcashyfFBg3eMp+PGhlYWQ+P J3EDPNdL69tkDWrbK0HV3xZBF 5TPFKBLYLVVV1GCW7vjZZ4NTk cI3EockTk VecnnEIpDP69UWq7UBN1gNmuP IzncU1fmZJmY7j2AiCzTF92rN 43JTvvWSMkGmO9MzGynncwnKB y W6rzOwUvjWCdMan+PHRhYmxlI HdpZHRoPScxMDAlJyBzdHlsZT 3nPi5kFEBaMQGfoOlnkTXkGdB j i1vvDKPxUHpvFC0brWkcA0Mzf TW4SSBwe2s7Hv43eWR+PHRkIH P9fKuzUVtvb217WsXqu8faNOU 3 mBLrAArcYJM8Z31iq8W4MJVoB FQdBYW5hIC9nY5jcLeplvxlG0 KwdUTuLqD0DLU4tOHnmH7ftGd n noqclD2xYya+K41MWK9RZXXCG P8WSmn4K1LaIndvdTF+PC90YW TvJM34pKNseLBbw7ybwFa0VkF w PUNcMMU4bDtkEGtph9RoXZJtT 01jiETeo7J7VEQsrJddaAJfWp NszXG8cI2cGSxqyisss7lrllm n Yuapg9ixff30gR02R79gFQrnK LTiBLN4XNAjONLtfKphjd6vaP 9wIi8+OLhze5qpg9cgmRa8SwB w YAZoqyRwyAnrOFV2e0ElLa15C 3CdzGude0WyZxk1vx70hACva5 O3wDG3LMacUQElyI6uELagEyI 6 NLLzRgLcdW93nRHrKBdoZp0zj HjqpRxcIW1zEPAsegyjWNQkyT 5oUKOvrVZzzRvcHA0zBACnijg m s266DmBjJEJ9RRJwnSLwM0Ask J4fVuBjNWMtZYToH0EfyOSmMZ gxM484BRcoZlX8QWNtaySrM0X s GWGtpFgqHlB2j5F4Sj3Nm0Ucu mppMYZ5NXgmUJX3FvSpCtOoJn G6E4AaThk2NDYmeTraXW6vZ2E h FINicgupremwcPS1BLBaALPib P11bJSlXInzNl4jw6Y1q302NT LlILFqtD41Da8swHcbEOQtsBG U aN4taciqb6failwgLcNqRXLwF Ib2CKo5FWJycSsfJsGsCUZ2Dp J4MYG0rOXbxE8qwGclokalnF9 w Oyc+E54npW2pKJH6NYL8ewosT BQpbaGrXK88DA93L9QcQolbuT FibGU+MFJfseVpvEuePX7lSoJ j x7dzm9XsDKczU2YxNKThFWzoE ig2BYEpPST8yHD3aA2tRWGyHZ vgs8L3dGG7U3TftmRayg0nb6d s GFBnULreO26fgTCqy1O9TRAiw UK8WLZgvQlnKfXtyI21Dqo+PG WdvPrja5LfKuxwe5imy9mmpFv 9 UfHeFODkmhPuqXwgZOT1h5ZaS z22I21dQUncIEAoSBYnFRRqKE QzpOgqnw1jdO8aHi3+PGNvbCB 3 iRB6pL5kJLPiTjY8ICivA429Y yRbyWFkWfsge7xjr9bdnWz5Se ZgPLTxohAvxMhdLIP5v2LqJq1 8 T30qXRsdXDVuZFEqNTXtJFDzj Yovfl4bgW7jOg2+CI0pj8zraq 68yH48pZW+SFScLUD8sQngYDo w KPSdnD6nKWinEvH8HMRuNxSto F60hEDhOVwyYp4heQrleAwwEJ 8tANUudlbfa261MwOjg7yyJND w fMEbHEuwWBD1N63pz3F1MFQaW GEgSVE8cBJ4xD1ktFwcsodfaA BpsDocmoOuiYtsNZxoXAxxC06 6 IHRvcDsnPlBhdGllbnQgTmFtZ Ph2N1ZhRwf9MDSgaXueGH1lxM SrEZktDj9qcRimrPtwEV0oOGO p ijvly573OwZbw0efMVPcaFXqF WmhUQV9K15xq5T6PKFkGTUiPK A3xST0wX3wxCngkvigpPAjwBj g fyIhyKmcBZsaGIaeM520MCVpx AhlNqGovuYeDYHvhHV0KJ33RJ 99iOJwr5J0yBX3G7EkHMDvtgk t fnnqdRS8OGHlGUAfvZ31Os7pc WxwAg5oCPXfHWM9OMEhmZCnH3 CjqK8eSbGdXTJfMJGiO9LyySG t DVfsH762IKtuDjE3LVDdvpWmI 8CmIQYecLqlZwJ9c9E2Rt7UT5 S5ME46RO38yFIuc3S8oXW4E8F h QSDbuncffnmohDO8VZOwRQGxg Z41Km2cwEyaFt5bJWXhKIL1ZX CbaIInR2EbwW4mUjNgXWNtFNB w U6KxyQFjBRchG609TEeeFjX5T EYcbaZeL0FdOPGdqGhnCsU8s6 E0Ob4JKEp0YA83SF84xUCnd8X 5 aUB1K5ClAHGpruxhzokypCL7D SYoDVKuxI13Ar2nfFkvMo8jOK RdCNN8LCEtgNNaU7BdgX0qAmL j HMWhGVEcD7YlkZNxLEboM019A CfiWxP3RZHrvxKaP3OsMPIljF txBhB8t3W2Rq2EPIIfQE77NNV 5 rPW8LE15KW41V4DeFjbxdCLps +PHRhYmxlIHdpZHRoPScxMD XdDyUcqLhzAO7oPi2gMFDzUSV v bQfgiHYwQcGvk9niGEFkRDouI W0ugDzrB0RxcBI5KKXcq0q1Yg 19V64qQ8FviCS+KISczBL5kSL 0 tO9lWlIsUhK7VQhcM672FySxn SCvCkqbf6yhr1rojIz2YwE9NP CblhUjzZqnGHD2d3KbJm89T26 s IHdpZHRoPSIxNSUiIHZhbGlnb g1cuA4cDl9+XDVkpRZ9jDG2eU 6aYeUwQaD2ARgdD595QkHrnHJ v Bkdbr6mmq5kyaEp6EaHkKFUpf uZuuUulRRH2k2YdXg93Q0MpjI oda2ObBrz2vt95yAAmf1Y9aYF 9 Q2UmFRHvbhyfvEAuhRjuCG2aM NQvfoplNYNtgT9dZCWjV8l5Ww LtWeM5BPexJ7RwrjT2OHCanEK g XCmyMSS2S33gi8A2UEZkWBDdZ TJ3mOO8pU4ivOklpyoyiRNcxX hnddHpmMgfPFatBHozO859UTH v gSzjAPDaqS5mKIMuvJYthJspJ A8zITGdjagcFotZOAMHJQMKLU PGBGmmFFjVSI22E7ZnNlf3LUY z rRotVI0lmKRiPPojMx3rlCwgp HjcDL9pSYTtjtcfIYHtvU9tKY YhjRCydEhvVE5bCZAgrxpia33 0 BjUaYWW9QYQpsXOsJ5RvoM9jZ eUlBJHpNDFuR0YrgDEtUWduT9 60OPrtBtB4MUYyodJgG5EeACB s sHtdRzM2d4F2Tj4nCP1gVc5jL Ap8AM66XR09vMYtj2V9xLN1J1 KeAQUiswlxbfcqkMU5RZJgMVP w gS14iSJwSTvgCy5gt0M6m264C AUiBPKclN88Pl1waEozMPIgcG DTyN8wmubib1bfhcxnBlXoOVJ w YPq3LXl0JXItaYmcMiZcUHH9J oU1SQI2xUGdwO7jgPwrbfgixJ 9wOyc+AJQvKDHaiwV0T8HoYsn 0 JIShuBdzVA9heIMwRYhdJn3gf IaciNydKM2zTYDmraasGBQydP 0tDRWlrWEttDdtLV9jUIDhyvs m y085QfSaEBH9WBYbbUHjP7Qqc Z8kWmLhJBBuNEXuV5DoyXVvQG xgK349TDqeWqH5LZUkbqGhO6F s LUDryGbzMzD2a4R4Zu5WUFkQM G91DH05fEYek7H0mGV7W9YfAU CopbhfiinfrIU4RPQqZWWmlT4 7 xMMvGSixWs1zt7P3v243DWUmA BMjgK38Wm8fyRmlOJUcoNPYeJ 4loolys2zhdachIgEuUUBuBNq 0 YMw0LBOavIdyZvLvAYY9PbR7O ET3fPVjyF0xsAwmkbqytD3sQq c+B6Y4G2YrMwrfsYQ+UF23NPK s IW72aPWnwWTct1nuwAp3BhYkI CNoKFM1yUbeWFlpt4EjXMUpL1 0xxQUsq6Z2JPMvgFlvfVVvKsF l cOW9eQ5vFTneqxoor1evmuumS zosj7lsgo89wB21P30jACklGW QrCXPmZKXrGAZbiRbenw5swO5 w Ii8+HADxaJJ0xRM6sV3xWoUkJ pS2JQktV235QoOmzUJlPxsvv0 ivf5rtaXy2CjNcVYDoqvGpiWl u ETE4a0AvQt94F10aKUlfWVJsA TTdJDTfRLDniAagpj7fpR4mOj 8+FX7it1gdtu21dH69bVF+PHR k WJP0xRpfUFsrHIIbuX9mTJxlZ tQ0UROwXiAuxQ30pOBjFEwgFa 0loSlpjQbyDK7iSZHhqkpxk09 0 ErBxz3mbODJnlTFcHOvvLUZ2J 72je8K8KYYnNLHoQHF8rDO7cF 1hbGlnbjogbGVmdDsgdmVydGl j SDalPJhjD085LILbiExkTtPji FTzM1kztzYNZP3yBszsbUI+PH SgDMM6eNfkTIvoAQWojM4aGOI p H1s4YrGhIbI7DLehX1PeucK9D BVtiZOyFQLpyRRKkU3khomwu8 klqteyUrGuBNBeGCa0ODc0UAZ s ySaxEqCoWAA2IeS2MDX6uVElu O8kbRurexjtdS5wNei+RklOOj wvdGQ+OZBpIED2zPwhAVgoYXL k hE9kDAVgF9a0EvUuQuU8YAqdJ 8MqdpA1ZQVigGPnOJJtyVJSaM 2gmdbme5vantzeFnXpFVJuSQz 0 HUw5KWSebBxxEpZeBQM8SnW3U MD5xKWdlR1ogUitnlstsB6qWa c+TVJOOjwvdGQ+QKRqGRF2yZk l JRhgYUCiyA5mDTXnI1v1KcAxW kW2XCgrY1WbpfD1IKUqmKBtAJ XleFYAiZ3yqecno7dnqklmIvS w RKIbNLd6RWu0IGPcfZidBiPwV ZM7BwL1UEV2dOArdB9kbSpkke yciM3pXdk+RDQ0TTO1AH55NN6 8 X3WvQgzphPOxbBN+PHRhYmxlI HdpZHRoPScxMDAlJyBzdHlsZT 4tIp0lGUKzOPEczFvclJRgNcG j b2x (more content not included)... [facility] Discharge Instructionson Discharge Instructions [id number] 11-18-2020 Provider Orders [id number]#1.00OTGTI [facility] ED Clinical Summaryon 2020 ED Clinical Summary [facility] ? Urgent Care [address] [place] [address] [id number] Clinical Summary PERSON INFORMATION Name: CARMELITA EASTMAN Age: 45 Years Sex: MALE : 1975 MRN: Acct#: Visit Reason: Medical screening exam; [facility] F/U- RIGHT ELBOW INJURY Arrival: 11/17/2020 10:36:33 Discharge: 11/17/2020 11:55:00 LOS: 000 01:19 Check In: 11/17/2020 10:36:33 Checkout: 11/17/2020 11:55:00 Address: [address] [place] [id number] PCP: Misbah Donahue PROVIDER INFORMATION Provider Role [...] verbalizes understanding of instructions given Comment: Normal [facility] ED Patient Summaryon 021 ED Patient Summary [facility] ? Urgent Care [address] [place] [address] PATIENT DISCHARGE INSTRUCTIONS Patient Information Name: CARMELITA EASTMAN Age: 45 Years Date of : 1975 Reason For Visit: Medical screening exam; [facility] F/U- RIGHT ELBOW INJURY Arrival Time: 11/17/2020 10:36:33 Primary Care Physician: Misbah Donahue Attending Physician: Irena Weinberg PA-C Comment: Patient Education With: Address: When: Return to this practice Comments: SunNovember 24 at 10:30 a.m. Medication Information: The exam and treatment you received today in the [facility] Emergency Department were for an urgent problem and are not intended as complete care. It is important for you to follow up with a doctor, nurse practitioner, or physician?s assistant toddler teacher for ongoing care. If your symptoms become [...] so we can reach you if necessary. [facility] Emergency Department has provided you with a complete list of medications post discharge. Please inform your health and physical education professor/provider of your visit and for further instruction on these medications. Any specific questions regarding your chronic medications and dosages should be discussed with your primary care physician(s) and/or pharmacist. New [facility]ations [email or web address], [address], [place] [id number], [phone] predniSONE (predniSONE 20 mg oral tablet) 2 tab(s) Oral every day for 5 Days. [id number] DOI 11/12/20. Refills: 0. Medications to Continue [...] of left forearm (S50.12XA) Medical screening exam ([id number]) Sprain of right elbow (S53.401A) Strain of [...] legal documents Reason for Visit: here for [facility] followup Allergies: Substance Reaction Symptoms Type Comments [...] for Disease Control and Prevention December 2013 [facility] Urgent Care Note- Provideron 11-17-2020 Urgent Care Note- Provider Patient: CARMELITA EASTMAN Age: 45 years Sex: MALE : 1975 Associated Diagnoses: Strain of right elbow and forearm; Sprain of right elbow; Abrasion of left forearm; Contusion of left forearm Author: Irena Weinberg PA-C History of Present Illness OCCUPATIONAL HEALTH FOLLOW-UP Date of injury: 11/12/20 Claim #: [id number] Employer: [employer] Mechanism of Injury: Altercation between self and someone resisting arrest Diagnosis: Contusion left forearm, Sprain right elbow, Strain right arm 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 On 11/[address] the patrol judge ordered an immediate arrest on an individual [...] recorded.. Surgical history: Facet joint nerve block ([id number]) on 10/27/2020 at 45 Years. Comments: 10/27/2020 9:10 EDT - Araseli Cabrales BILATERAL LUMBAR MEDIAL BRANCH BLOCK T12,L1,L2,L3 Epidural steroid injection ([id number]) on 09/15/2020 at 45 Years. Comments: 09/15/2020 10:13 Araseli Lord CAUDAL EPIDURAL STEROID INJECTION Stimulator, device ([id number]) on 04/30/2014 at 38 Years. Comments: 09/22/2020 9:08 BARTT - Swapna Arana stimulator low back placed 2015 Fusion of L4,L5,S1 fused ([id number]) on 04/30/2007 at 31 Years. Cage ([id number]). Comments: 09/22/2020 9:08 Swapna Goodwin bilateral fused [...] at th (more content not included)... Normal [facility] Recordon 021 Urgent Care Record [facility] ? Urgent Care [address] [place] [id number] PATIENT DISCHARGE INSTRUCTIONS Patient Information Name: CARMELITA EASTMAN Age: 45 Years Date of : 1975 [facility]: [id number] Reason For Visit: Medical screening exam; [facility] F/U- RIGHT ELBOW INJURY Arrival Time: 11/17/2020 10:36:33 Primary Care Physician: Misbah Donahue Attending Physician: Irena Weinberg PA-C Comment: Visit Diagnosis: Diagnoses This Visit Abrasion of left forearm (S50.812A) Contusion of left forearm (S50.12XA) Medical screening exam ([id number]) Sprain of right elbow (S53.401A) Strain of [...] and treatment you received today in the [facility] Care were for an urgent problem and are not intended as complete care. It is important for you to follow up with a doctor, nurse practitioner, or physician?s assistant toddler teacher for ongoing care. If your symptoms become [...] so we can reach you if necessary. [facility] has provided you with a complete list of medications post discharge. Please inform your health and physical education professor/provider of your visit and for further instruction on these medications. Any specific questions regarding your chronic medications and dosages should be discussed with your primary care physician(s) and/or pharmacist. [email or web address], [address] [place], [place] [id number], [phone] predniSONE (predniSONE 20 mg oral tablet) 2 tab(s) Oral every day for 5 Days. [id number] DOI 11/12/20. Refills: 0. Medications to Continue [...] Disease Control and Prevention December 2013 Normal [facility] Coding Summaryon 11-13-2020 Coding Summary HTMLBase 64 UyuprhnhZWe8sZa+PGhlYWQ+P P1MEMWlT04prVImnS7FU0wBNE 3GSFGTOSQCZN6DIM8dfNR8BNn bT2UtyzNu IfhvhZLdRU59FTo2KFS0kZheD CwylX3dhAXaD7n5JrRcEH16mS 18CHxfFUNtDqU9YwIwiregyAR y U8rmKrHicBBaMtg+PHRhYmxlI HdpZHRoPScxMDAlJyBzdHlsZT 8aRm3dLUBnUONzgNgjgMYqXsO j p6zaNSNcJPpoJN5hcJbxU2Irq SI0RAWog7g8Cj10tCQ+PHRkIH E8sEgmMNxoa575XtMkw4zwTWK 3 yWYfXTzkUCZ1Z48sl6U3ZYSiT VSeBOR1hWA2kQ6hhGjjmqpnF0 UuiZWgGgG4EZR8aSAofI2yrBz n prujuK7aDgc+R50ICM9XAJHTM J9BEwy5J8LgXxyqgEL+PC90YW VhRI10aSDnrKGgh1owvPu3ZfJ w SWEeGYU7eSylEKlud4EwDEIwI 57ccEUgx0N2OUJvgPscvRCgNd UrsHB3pW2tGDsebtpae1stddq n Taazf7urhb22yL54N92bBKfhP FOjMAB5KIEiEPEhrNhkea8jyD 9wIi8+ANhiv7udv4eykDq4PiA w NKTaboQdsVojGOB0i7AbTj88O 1CzaLrst7IqZsf3pq93xAVnm6 D3cTK7LZobPMLhpI6cNXqvWzQ 6 ARMoTqMsoU81yWZiAMukHr3ac IeblSeiIZ2cWYAvpgjlPNVgxB 7bGFQqtXUkmEjdXM4dXBYbnfr m j003SqGrVTE7UOLlzNTiZ8Ewl M0tTrPoXVKsDBCuI9CssFMxZO xrG866AWdlClY4SNJtyeYrT4A s OCVjsGfbGbX7l9E3Ca5Cd8Gdv wheOEV5DIcxTFH2NeW1EpEmZd Z4U5AuYaa1SQKqqKfxCW8tB6S h CHHumsmeqgcghJH6AYSaMBJly D16xJLdCRqsBs3lh2O3b781SE NnBIDqlD46Vj4utRdpNJRwaTH U hU6ebcylo2beyhqdVzNdNPKoB Lr8AKg7WOWxiLxwHkCcYNZ3Hx W3IDO6wXAqjR1jmTiehxfmaG0 w Oyc+P52qqX1sKTE8NDH1brpiA ATjcbPdUN92NY68M4RqAocarP FibGU+WJKivqPmyMowSM9dDeT j u3vul1IsQLhjW5NyUPCyGJdmT hl9NCJrDAJ0jFR3vP5jUWQtDP sgv2Z8nUW3Y7SgtbEkbu8hw3g s EMEhURefH71hfWOnw1Q7HYQle MO7JLRjuEekSlMpzY04Tsn+PG IhkXcze7AtNccyv7xjt6ckdNe 9 FcOxDYOgpnIieIyqLDX0g4AxU v83Y02kKTsfJTGvRNToLMLjUO XprSvnqj8vyB8fBu5+PGNvbCB 3 mGQ1hU4wIFJcOeZ5RPldM945E xSxvXFdRtttq6ygs1zwgNl2Ki MsKCZvieLsxDsgKRA8v3RfNj9 8 B93wBHqvSYDmKTYmJXQzONRpr Jxfns5zdQ6tXh7+UA7nl7bpfk 91qS96aYJ+SNAsOMX9oKqqQSs w EWRnjE5uSFydZoH8RGOrZlPcm Y74vBRjACcxVh6hyTkwhCesBH 2tEYExmqptc521FgYbw6xlVBR w pETgPAslZYM9K60jz1Y2JFWrO ARkNSW4gPT9sA1jhDaiymuvlY WfqEdjifHwuEboZCkiWLzoQ01 6 IHRvcDsnPlBhdGllbnQgTmFtZ Ch2J4OcGtb0SSCziOyhCP5ouL CeBVfiNo0vxNsbqPvhPN6vXHV p dbnbu356PwOxw6ylVXXksEPwY IwmDST2G81cq8C5LYSkQAPmML D0iYK5eB4lqZsfuecmxEOpaTn g gwXehEyiSCcaSRylZ701QJCeh ZwzGyNyceZqOCUanEL6ZD52KP 66mSXwi8C6hGP7T7IwWBOntnm t oundqUF8WQSdONOczK20Ga3eq ZdtFa4aLBXsSLE8GDXczRWqX9 AcpJ0vLaJcMKJiMCFbX8BedEX t EByyF803OEwlTcR3VKNsibGvJ 5ByYDDlpSziZpM0n7H5Mj0RC8 E9CT82ZJ05xCGvw2F0kUQ9L4Q h ZDEzgviomrtmhXV3MBXoRDEiy A55Dr7prRpbTj6pTKLrJWV5JB JgtJKxQ8VjrC0aIvHbMZPqAHX w O0KsyKCaAYjgA480VWtiCnB9L WPqzlRnS4GhVLJveCrxXfY7e7 J5Wx9CUEg3ON15LE58cDNsz2E 5 gBO2B0LvKHCuxtzkzbcjdJN5C PMoVDTzcZ71Ft3slMqmAt3mPO KjQQF6BXHnrBQvT8UqsH6pXmM j GJQaTKDcQ7TfkNOiDPitP185F WoaMoP1HLQjntDbV5EjJHLhmS wpNuV7c8C2So2FYODwWZ23VCZ 5 bWH3MX33BZ99N8ObXrsazHThz +PHRhYmxlIHdpZHRoPScxMD YlGmYicQjzKC1cIp6aBNEkDTV v uQdhmBJgBbXzh5naNLHwQPbpA Q2rpVdzP3QnaBX8UCKqq8j5Gf 36M77lL6NwhAF+EWXypNJ3kFQ 0 cJ6iMqKyYmV1CBomE203SjQbz NWuIvofo1cep7urvOr6DsS5QT GwhcJffJwsZWU8x8XvGo76I01 s IHdpZHRoPSIxNSUiIHZhbGlnb d9qeV6rXj1+PQXcvRI8uMP6cB 7fSdWcAnM1JRpiY161VaFvmXN v Pqkwu4pcs7wxlEj6SoBbDUHgg mJznGkyBBJ0y5AlAh19X4OisI syn0OlPgt2en05xUKir6S3lUA 9 K0PwMNKbqtcotTRjrExdBN0jK AHbqjpxWXGuuF6gRKZsU9h6Fb MtFoQ3WWuyV2CctrE2CRVbkVT g LUvoQTG4R14hx1I1JGZaOGIuM IK5oZD7cL9pcTajeozbkNYwkF niksQgfKvtOUuoGRfgQ808PEF v cQkvNUAoaV0sQXHjsVFnyKmwK Q3hXHVwlwbeMptHNJFZYSDWGO WZQWcvGLmVPX39S7MsPjh2REG z bSdlIL6ezGVxTAfmMo9cdHgzu KsjHC7mLRYzwmqcRRKxsP2mNO IolMZloJkqLM1vJRUdirnlv80 0 KzPaSJG3CQPqkGBpX2CxjE4oU vToCRLfUWInV6BtpKJySPhkI2 97OWpwHbE8NZBvorRoP7IcKKE s iXhxDgR1j2X9Os4gPA6rQj5qB En3AL07QK63qZVgm3R5kAD0H8 OeCSIulghgtnvnyKB2QHVtXDM w wB75rFXmHYnhQw5kq9O1g550P XFvMNWrwQ10Md9vwRzfHBRteL KXjC5djyenf7quaibqKeBjJBC w XNo0OPx9ZKOmkPqaWdDfZXS0J uY8QWL0cDOtwS2vsNbrgcnwlH 9wOyc+NMEoSNGrbvL0R6RvEjr 0 ZNKwtWxoHW9srZGjTAthJs7yw CsuoYjvQS5fCTWexywhCOCycG 5lUFXgkLHebAyrSE0xMXSwyrv m x464AqFhIDQ2DKAicVVkJ5Mck I6dTcSpGTRmATBvN3WkyEDfZE khT369VUekMzV9VPBksdOgQ0W s DPVuxFkxHdC2p6V7Ya1YBInRC R16NU11wVEzp2Q6sJE2K0KxIH YcfrsfosdvgJU3FLVePIHfkO5 7 zNQuFMuhZa1mj5U4e691OZIpY QIwuJ31Rl1ztXxoGAQbnHJCwJ 4gfnonn7hzxhxkHlCfETCxWSm 0 JOg0HXBxqDbwOxQlQGC4KdD2K PN6vDDfdK7arTusphjfjO5dTo c+Q8F5Q1MiAyjnuLT+AF14AOC s QK15gGDorMIie8weaBg9OiTqH KAjNZY0oAzdMBglt9GcPSRrR9 7maGHer9O2ENMtgGzwzAMnXqY l zSZ2lZ1mQUycrwdqz3wzdhvrH cjov6qlih75xS93W64wGUccLB UaNZCnTGEmQNSazFrckg3ylW2 w Ii8+XDZgmXE0gTI2zL2pVhKhS bS8AVtlS253SeMbbCMmIcvdi0 drj8jbmLf7HaMlQJVuwzUlyFq u BGQ0l7KuWs21J98xDXpaOKImG IArVVRsJJKbmXvjdi0lsQ1wFn 8+HC1pc7ndzo90nA40qCX+PHR k ZNK8bJgwRAenKKCxlG3yTIaaY qL9OQBoLeLuhD20dKKeUTpiKb 0jgVtznLswSJ7iPOZrbehwq31 0 HlKex8veXAKiyTQhUAacLPM9D 15ys6H4QQElTPCaUJX2qDA5gB 1hbGlnbjogbGVmdDsgdmVydGl j YGihKFctH116YWHrqHouIlSvy CKkD4gyjqETZT6oBhsowHH+PH PnREV8mMsvVJwbNCIevZ1jTQK p U9c4VjHcDoM0ETuqF1WmvjJ9Z NEgfTJcWDEgvZZSoT5dpaabx5 qanohjDuHsOOOaQRz3YVv4GSB s fKljPkBcXKJ2NsM7VGV9uKWkn X3kqIvrzgzufU9kWzy+RklOOj wvdGQ+PFTkSDI9dYvgMIeqTKD k tT1bIIZcG1y2UvQzZlE0NFxeI 1GsmpF5MCIiaNJgVJNgsCKOpA 5xqnaba0lbisqxFtYrKVRaZHt 0 MGn2VMXjkCpmFaCkFSJ2KsU0N EF3iJTugO6lcVdtvtnmwM6vLw c+TVJOOjwvdGQ+ENRfBZD8vJf l JLktCQGgmE9nDUSfN8s9XcUsY lN6CMjsG1RumsX2HFJuzAFmNL MalBCFiL4cfxavy3kgjdgmUmZ w WFHkDNt1DEm6XSOggBbfQkDwP TP9PuB1YME6cDWvzM6vcExbyj wmkX9eUvr+CUV4TTW4OE97TH0 8 T5HkGavgzGVotHL+PHRhYmxlI HdpZHRoPScxMDAlJyBzdHlsZT 6tGq1vYERlOSTubYetkRQdHmO j b2x (more content not included)... [facility] Coding Summary HTMLBase 64 NyieijguKQh9dQl+PGhlYWQ+P B3VPHHwX27wpDAhkC6YW0nJRQ 5GVKDMVKFGVT0XHI8skVC6OBm nT1CuatAn KfpblFQgMR50UFk1XVD5xWziS VuxgX9wiOPdM9h3QwHnHK64gH 21LIjsEUYyCsY5XvPzfjvzxZT y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 R6S4GdLpx2HHNefCwaAP3pZ3I h TKRsmlkswusnyLF9YIUcXXLzi U14hKFvRZbiSi7av8E6c578EE TsKYRgvZ50Gj1ugSbmAJDppGH U sJ2bvdzkg3uxhpyoBfIwFDMvQ Tb5NEm2RCRyeGuqGoAxHBT1Jn M2THB9cDIflE1moTpjpzvspH6 w Oyc+T04yfB4gGGK3VVV5vaveM RPgycOoDJ82IR89E0ZbDhfkaF FibGU+SDVfhaGzeKqhLF4oWzD j s2yea7LzWMpaD2AtIKRyBLojY ap9LUHqLAC3oPL5lB6lREIoCQ ega8H3fTZ7V3XnhpMyld4qd3v s UZUfTWmkN34ujKSuv3J6GZOnt WX9PPMcnQxnNlJfvM94Dtn+PG YkhZstk0JwUttfu1xmv6whaDw 9 TjWcZFFupyDunZnwFBC0o7NzP j89K85dBLnfPQUoGNWnKDRwVQ IgyFyjwv9ytU1uBd9+PGNvbCB 3 sJP3xI5wAOIxNaS7PKcvU324S dBnxUKkBknuw8hle2fljGp3Tv VfCUZjtxVfgZdeVUC3e2EbTi7 8 G83oJUswCKTkZCKyEIWvLYIvg Ctizb6ovW2uVe7+KC3jh6cuip 56uF07fTM+MMLhPNG1jCyqJTs w XHCfpF4rTFibNmU4REMrGeFhw P43mTIuHCsaUm0joQbutJlaGX 0cFFGnridey996JrKbx8dnQGW w aEIcPRpiYTE5I83qt7T1XQCrD UBrHHY3kPM0xD2utEnfsmizaD NpsFcecvHppTcxYGwbKIdiW75 6 IHRvcDsnPlBhdGllbnQgTmFtZ Rs9I3SxGss6HRLzjMiqLO2fjC XgVRngJx1gqPoyyMagGT8zZKL p wrcco623VuTmk0ziXYSvvJZdW QijQPZ9R33qv4H0QNCjOFCvSE W5wBV9gG0vtUpansvwpXXdqBq g qfOoiJfoXDjsFOflC124NPKai LduKwIqtfOsVMRblGD6FW62GC 03aNWkn6J4sBO6U1UpGHUtthd t ibmsmQR8CDEdKMHbrO62Fp1nt ErgHy2nTCDmFSF0NPHdgHYoM9 FytF1mAdIhQLHnELTrL4UlzBF t XCxuK062RIbrUpI8SOVgsyNdC 3VwRCKbbShrKdF1b0B8Ys0NM7 B7XK15VM39yKSkg7Q6nJA6J1P h QRFxtkvxfuoafMU5NZWsUSYvn S62Em7hlRtdGp6gYIEiKJC0GE LrcMScC7BqlQ4jLsKyMUYhNGL w X5WhzZOvPRapK820PJvjJkI6D HXbklIdK7NcKEPjnCyiSiD3t3 H5Ej8BCIz3SN42RY46aGNlk4S 5 mZU1G4NyUKWdywnmeogggKQ3R ONbTIMetD86Rf9zhCpbNt9zHW FcMXM3NFDhjVUlY5XqqS7bRxE j KGPfSAEkQ1FwjDFkJTjzC798L CtsUtE9GSSiiqCgG1YdBBVzeW eoBoT4t0H7Av8IJCAeEX17JSH 5 jRN2OD10RH92T4DaXzpqnJOab +PHRhYmxlIHdpZHRoPScxMD TtDmOpkUjcMK0cNe6rOBApNFN v mFwfdHSoIzZzi7dxORMsGNxpX V1lmXcnX3KjuOV3XNGrh4h9Aa 68A48rZ9IttRQ+QDBzyRM2sFT 0 yJ3uBxJsBvX5LCfiK155IfSrd RZiHchfy6opy8nmgSk6IyS9ZV HbqnCfnWdeATU4w8ZfZv48T27 s IHdpZHRoPSIxNSUiIHZhbGlnb j1snO1cCj9+LGFzmFS7jUN6bN 6mZaGxDvS6SUumX957DyNdiJF v Hdbmo1gug4cliFd3LzOqZSVpf nOiqWuwPZB8y7ImRs99Q9NgeA wch6QpIzh2li14wDZgd0L1oVX 9 R8UkZTVltbukoYHotRcuQX2cC UIsjtkvJDDrcH3oSHOrV7g3Pd GrHsA3JRjbF0EtgoY4KGRelVO g UCqyAPX4N70dw3X8HUXrRSYfH KP1rOK6jF2ycWvdjmaxsHGhnE jtuaWurFcaDWrkAWveS235WAC v jGgpDYYvyO1vSFMvmFAmiHkbA M7eYEZhcinkWncDFYJGZNBOSI DHYSneDFoKZZ99E7PjYrm8NNU z hYwmHR7zqSCdMLscHm7bzTtvj IeeCP3qBJIngyqjJFMxeT7wZB WnuIQulUfmLR8zYPWuknsfi28 0 BlQxDKV0EMKloEMuW1LjqH1aN pYyLEBqMCHvF2QptANgNFsvC1 15KArpMbP9BEJwggFfD0VnZUI s pEvvMuF0q1N1Se4gAJ8xGv8eL Ua9OR57LU43iZXag6P2wLD0X7 TvWQBirczmzkpsxIY9HASsNVF w kH18vLHtSAmhPx0ub8K8d854G SGjORZmxR34Nx4dcJovYSCleM JIbE6izucaf9sxcvuiFvKhFSO w UXb3NRx2MHEhcAuuEzNbSAI1K iX6XJE0nAWppD6ccQralzbwzU 9wOyc+GYWsPSWadpL9P9XbSem 0 RQHqgUdtVA5cuBTlMGdeCe4ej YvrbVbsIH2qKGFkxjahMOKvvJ 4lQINjiIKigScsCS6zMXUskom m u179RmAuYCW0NMWvmEXsE2Keo L4iCkOgOFZqPZPtX1LasSRjMB cjL348AKmnHwV6CGHdoaFgP5K s UBKadMqlDsS9g9H6Xh5QVJeYY H36TT57rPPuf5U6hTI4E3CgFM XfyoltngkcvQB0ISQqFWUonJ2 7 uPUuFPobNn6jf6V5s178WZUhZ YTyaV50Pz1geDxlZECqnKBChG 2ycukjx7fhdrkyTdNdZBBzVFm 0 BFr3XYSrqVeoXwMwSGW1VrV8V QF1kYCqrT6yfDqkstynsF0bHq c+DIY9PBX6efztqqf7F0HjLqb v dHI+AQ47UVIhOU08jUGeuKUij 2xpdXc6IqKwGFMaGBA1wQuzQX lbz9ObYWBrD39crJMgh8G5RST v zQllnPWhYtMhnZO0zZ1vPDmll ufai9croiblZouqy9mzax59hQ 66A21tXQapPOFmNSSdYPEjCFO h zPjhmy1xpQ5pLg6+WZJzqLF0p MW2gW5tZvDgWqJ3GHhwC807Yg JkdMTiCzscm9epy8olxTc4KaS w QBUgxzGcbDhvPON3e1PkAb96F 29sIHdpZHRoPSIyMCUiIHZhbG setm3ifB8ePz0+BC8ml1wwxu3 1 hF55xBU+QUTwLUI5hZwxWDujK WEzpP8iXDamGzH0UPPdPfBwjE 81fQMoSPfvOp6dfUrxeDkzOH1 w BAPidpcse769JjVbx1qtKUWsj AUbFEcsNYD1T04hz2X0YGJeGU QcHHG0fTG8iB3pyVigeuwpxCE m qAjdulBxqZphBIexLQdkV497H BRkhUvfPhCgoBVfA3emqmCLGF 1lOjwvdGQ+PFSiAXI9wXteXMx w BAEycV7dXUHwR4n7BjPsJoN2N VplO9KyrsW6VZOpgNEwCJBmqQ WUpF0vgffmc8ougeapMiSpFXC w WWs4PNz9WJRdfVlmCkAqSTI7R iI9OVH5hKXjoY1hzPrgmcrasK 9wOyc+RklOOjwvdGQ+PHRkIHN 0 zZnxBMtqZIKefA6gSVNcP5z1E bWrMxG5SEdyF7PdppI2SBUupW ChQXSquMGDeV3mppynu3hvela g WdTzQRRmYEc0ZQq7OCXdwUsmT gBnJPQ0RnM6ZJN5fNEwoJ8gfR opirwclB3rZtn+TVJOOjwvdGQ + ISExJST1rJhkJLcnHBQsnL1cH PHoR7m5XwPpAxZ4VMcmW0Hxek K9CJWcjSGnHETfnFHUtO4kzpp j m9ogusjbVzIcJJEiRLu7QGz8B ILdsJxbGaRgMBY6UsS5DMD1fK FbhP5gbDmpmcdyzH9wQws+UGF 5 OIF2ZK01PZ30N0WaYnishSErd +PHRhYmxlIHdpZHRoPScxMD NcUmMrjTvpXQ1jUk1eDSOyMUU v bGx (more content not included)... [facility] Consent Formson 09-16-2020 Consent Forms [id number] FF [facility] Anesthesia Noteon 09-15-2020 Anesthesia Note Patient: WILLIE [...] on: 09/15/2020 10:15 EDT] Hang Iyer MD [facility] Anesthesia Note Patient: WILLIE EASTMAN Age: 45 years Sex: MALE : 1975 Associated Diagnoses: None Author: Hang Iyer MD Preoperative Information Anesthesia history: Patient history: No difficult intubation, No malignant hyperthermia. Family history: No malignant hyperthermia. Review of Systems Respiratory: No shortness of breath, No apnea. Cardiovascular: No known MT, No chest pain. Gastrointestinal: No heartburn. Health [...] rate. Review / Management Laboratory Results Plan [employer]#(ASA) physical status classification: Class II. Anesthetic Preoperative Plan Anesthesia: Monitored anesthesia care. Anesthetic plan, risks, benefits, and alternatives discussed with the patient and/or family. Patient verbalized understanding. Informed consent was given. Consent was signed by the patient. [Electronically Signed on: 09/15/2020 10:09 EDT] Hang Iyer MD [Verified on: 09/15/2020 10:09 EDT] Hang Iyer MD Normal [facility] Inpatient Patient Summaryon 09-15-2020 Inpatient Patient Summary [place] [id number] Patient Discharge Instructions Name: CARMELITA EASTMAN : 1975 Patient Address: [address] [place] [id number] Primary Care Provider: Name: Misbah Donahue After you are discharged if you find you have any questions, please, call [phone] ext [phone] to speak to a nurse. Discharge Diagnosis: Low back pain; Lumbar neuritis Prescription Information: If you have been given a prescription for narcotics, seek immediate medical attention if you have any difficulty breathing or any sudden status changes such as confusion and sleepiness. If you or anyone you know is experiencing suicidal thoughts, mental health, alcohol and/or drug addiction problems; contact the [facility] 20/11 Crisis Hotline -Text 4HGYX ey 487470. If you received any narcotics, sedation, or [...] business decisions or sign any legal documents [facility] would like to thank you for [...] for Disease Control and Prevention December 2013 [facility] MAGR Intraoperative Recordon 09-15-2020 MAGR Intraoperative Record MAGR Intra-Op Record Summary Primary Physician: Juan Carlos Owusu MD Finalized Date/Time: 09/15/20 10:15:33 Pt. Name: CARMELITA EASTMAN /Sex: 1975 MALE Med Rec #: [id number] Physician: Juan Carlos Owusu MD Financial #: [id number] Pt. Type: D Room/Bed: / Admit/Disch: 09/15/20 [...] Role Performed Surgeon - Primary Anesthesiologist of Fire Extinguisher Repairer Record Time In 09/15/20 10:09:00 09/15/20 10:09:00 09/15/20 10:09:00 Time Out 09/15/20 10:15:00 09/15/20 10:15:00 09/15/20 10:15:00 Procedure Epidural Steroid Epidural Steroid Epidural Steroid Injection Injection Injection Last Modified By: Joann SIMON, Luly David RN, Luly Huizar RN 09/15/20 10:15:07 09/15/20 10:15:07 09/15/20 10:15:07 Entry 4 Entry 5 Entry 6 Case Attendee Scott SIMON, Araseli Cam Regina CST Role Performed Fire Extinguisher Repairer Fire Extinguisher Repairer Scrub Personnel Time In 09/15/20 10:09:00 09/15/20 10:09:00 09/15/20 10:09:00 Time Out 09/15/20 10:15:00 09/15/20 10:15:00 09/15/20 10:15:00 Procedure Epidural Steroid Epidural Steroid Epidural Steroid Injection Injection Injection Last Modified By: Joann SIMON, Luly David RN, Luly Huizar RN 09/15/20 10:15:07 09/15/20 10:15:07 09/15/20 10:15:07 Entry 7 Entry 8 Case Attendee Flores [place] Sarah E Role Performed Suction Operator Suction Operator Time In 09/15/20 10:09:00 09/15/20 10:09:00 Time Out 09/15/20 10:15:00 09/15/20 10:15:00 Procedure Epidural Steroid Epidural Steroid Injection Injection Last Modified By: Joann SIMON, Luly Huizar RN 09/15/20 10:15:07 09/15/20 10:15:07 Surgical Procedures MAGR [...] Prep Synt (more content not included)... [facility] Preoperative Record MAGR Pre-Op Record Summary Primary Physician: Juan Carlos Owusu MD Finalized Date/Time: 09/15/20 10:09:50 Pt. Name: CARMELITA EASTMAN/Sex: 1975 MALE Med Rec #: [id number] Physician: Juan Carlos Owusu MD Financial #: [id number] Pt. Type: D Room/Bed: / Admit/Disch: 09/15/20 [...] Signed By: Luly David RN 09/15/20 10:09 [facility] Operative Report - Surgeon/P shagufta 09-15-2020 Operative [...] 09/15/2020 10:13 EDT] Juan Carlos Owusu MD [facility] Patient Handouton 09-15-2020 Patient Handout [facility] Coding Summaryon 09-13-2020 Coding Summary HTMLBase 64 BbezyukgNIj2wQa+PGhlYWQ+P V3ORIKtX97ivVRmmI5IE3qOUX 3NDCVJWJBGZC9QNO4utMD8NXq eR2CbuhCb AsgohSUhBC08NZo5OLP6nKvgA DrpxI5ryBFqU5h8NcTfML57hG 38EJxtENBhBbP9QsHrecwhpAP y M1dbOsZorBOqYcq+PHRhYmxlI HdpZHRoPScxMDAlJyBzdHlsZT 4xTg4eZKBxWSAgcHpnvJBlRkL j g3ypXHRiHMfvEI5evLfmW2Ajz EM0CBCqz5s1Bv32dDE+PHRkIH T1xKmbLLhzo978PvPos8ndTCZ 3 uAJwORduFRB8K95ox0I3MRZjF NDuYOQ6wUK0jL4fxYkiuswjU3 GnlXHdSsR2WGF5jTGbmS8loJa n ijeptK4tEtx+S68RYH3YBIMFP L3MVyo7Z8UlEgilxDU+PC90YW KuTJ49iZNmjJUyk3abxXy9FlH w NIDwTKH3fVnrYWzzk3QiUUBbG 57xjXJcz7E6JWGhmNnpqUZoDv NjrUM5oY4vFIrcpodbv2lfnpi n Tdvlx2icuf22aC41T11mQPgcR JBgAPH3SPYzNYRgyEundh7qiT 9wIi8+VBuvr7rgk9zkqTf4PtR w RYCcmqDqvKhmQRY2o6UoFt93G 5FfgUgdg4CpFyo2qr77lSJmc4 J9tQU2IOiiNDRotA6cRDvdFkZ 6 CKYoEdUyvB79ePRfXAdhOe1hc YnmcCwpIW0zFWCjniofODBkqT 2pVNYpyAVgyPwuIZ2zGUUqthj m x964XyKiZPF5LBNqvFBuB1Ers S5bVtYfHWTiXMGpI8IrmIOnSC rmH151RRlqRxG7DKEugfPxI9V s CGKajFepAwA7s7S1Il7Hx3Isj ubeVIU1UIuwMTC5IaW7UkOcSi G3V2MzDur5LQPeiNnfCN7cT8L h DOZkwqzjdmpogOZ6ZUBkIQHsc V22dYEdUFwjWw8rb4A7d312IK YaKXWtgG72Eh5enRtjMFFsgXV U bV0ezrdtx7phzheqWbPsRINqY Sp0DXh6CYPxaHoqGnRuOVW0Sy C1WVJ4hGWmtN5iqDtbrzqjuA8 w Oyc+B03brG7qXFU4ZIG0ncxtN XRxvoIjRF49TS50E0DbFpfpiX FibGU+ZZMmpvFylIrdIG2gLmD j x9unw6XtBAtkZ5BtNARpVXczZ xc9EVZbQDC5oHO6tC7oIYXkGF hfv3E3jPH7L8RzlsEvsa1xp0i s CIXmOQbkS37pvFTpw7M9FXWvk CV5LUNvlDugBlSsvE79Zrr+PG UzeWyhn4OhVmois0pyb2cwgNf 9 WdQsMKGqmqGuoNbnPGY5a6NqY n20L57kNKkdLLXzNTVgLZYpHH WavCnnhp7wtS2bIb2+PGNvbCB 3 hHA3oM8oXFIcXwG2OCcrF825W vYuhBDiHtsjh3xwb5cyrFg6Df WpTKSbhjYoaIxfDKO6w7XfVy3 8 A35pQPimBNRfUXXiQCZtYVLms Wfrpl2lyB9nLu0+IW4bk4hjsp 20qZ21gVF+RKLiCGZ0qFwhLAb w CWQnhO4jNYbuMlH3QLJkDhSxc N83yGToFFpvWd1xiGjazLoxKR 5eBYUiywrxp719SxDkr0rhVRW w cBWdLBvgVNJ9W91kk8W1HXAcF XIjCLG5rBE1cC0vfStwaxvzhR YwpMacrcAtaZgdOPqyNCcgC77 6 IHRvcDsnPlBhdGllbnQgTmFtZ Pk8C5PeUld7NHJirCymZS1nhX PcLVjdSc8qaKmipBcwSX4kDAG p fjhru212UcCkf2enWIUqgVYpJ QepTFB5Q60mx7G7DWVpEGRtLT Z9dVG4lD2msAspowmvzDOelLo g vsRazZiwYArdYYqsB528SSMyn InbZuYxswCaGVNduNC7QQ98AV 56ePWzs0O1fDE0N5LtNVHsymq t jkqnrBH6CIWmKYVlcL10Zp2og RnxMk6iQFKeVQQ2QOAvgBBiJ1 GbhR7aAkEqHQHdVEKfR5SjrTB t IOzhX835HOtiNqN2AQWzioEdH 9RqVIHebMcqLsJ0m9Z7Qj3YB3 I1HZ48UN22yTGyv9L9uZH6Y3Y h AHKxacxecdbluSQ9DHWdPNZxf B45Nv4quWniZp0eVNAgWDC9QB ZniLTiS9ThlJ7dThRqTWHvEHG w S7PiyAWzNSyhU766HCleDkD9E VWyidNnF2LiDMWmmFfjWaT1p0 B9Wc3JIFs6GB13UB31hCFzv6S 5 lXT9U5CyJUObwjutoyaasWV8I FGwXDHgcB23Cx4knAweDi7hEL LyICY5VVYraFYvY6KhpT7aWiK j TASpVYJdY2QdkVJjSDjsO732M GndIhV7BKKjkeNrH4ErLEEgwC dlEnX0l3W2Uy1KEPNzBW33AWB 5 wQE9SL46HA55J2ZhLzabvZNjz +PHRhYmxlIHdpZHRoPScxMD ZlTdCteXklNE4bGp2sGRVzUDI v kDihkXUhZlZes0uwDHSjQFbgM Q0zhEheY2KknZU7KATvc1i5So 36B00oO8JhzIQ+ONNnjJG5nPA 0 kG8cCdIcTrW1VAqhA874KnZhd MKlUtrgj2hse3zbfSr1WyW5FJ ZijoSqeWxdUKS1q2CpMh86P08 s IHdpZHRoPSIxNSUiIHZhbGlnb d6kkJ8gIz2+FOOieGP1iQH6cC 6gLuQaRjR9DAhwC429BiOllTL v Iyzts4qvn7bowGp0VqQqWTKuq mZicHjxWPU0k0VbHr04Z3IkpS lfm6MyQjr7nq13kRFjy1D9sYW 9 Q8QuOHBfkxowcRPepHabCJ4iN QOpaznfYFZlmF0aGOHwD8f4Au DkPzE8HBxhJ0DasoC3NNKaxBC g BOafMVG6A25wp5L1UBUyFLJmU SK4bTD6lO0byWbswtjwrWUydQ dqxwCiePslCUkpCAatA941PXD v uXuiCNVfmI7hUFBqtOIyaWwsW G1vYUTrudxqXrfNYCGLQZHDNL UPWYruPOpTLV67Y5HoUma6TSO z bSolVB1ebERoBAsdTz0vwApdc PfmYK9kUJBvhmqsUEPkaG7lAE BrxSVepLqsFB2rRSVtjpreq89 0 ArTrRPW7ZTXbdKCoL7AwpT4tG cDlLJQxRNPbK2DbmFWiNEcvI5 82HBxpHbH7LDAsioPhC0GlGVF s sMwpErB2k2E5Nj0eXR8qRw9tC Zb8SD80GT79aPBrh0F8eMO0H1 IxFNOzkqoccfzfnSN3VLDuRMX w mP46zSZeITkoRb5wz8L7u230B ZWmYHHlnK58Gl9psPsqICVpkR EVvE9ehiqgc9higaygBxMxVGC w ZVi1FIy1EXJydKngDaRiJFW7Z xV1DCX6yVKtsZ3aiFpbfniylD 9wOyc+BITaFKBrzxM9O9ClQff 0 ZBWnyPccNC2veHKhTWqjOw0bo BhanJdpVT0uFPSnffukASAlhT 3pLFUciWBorZjxOM8mNVFpvhm m i364ZgBuUAT4YHYwzBDkW6Ygc Z7vClPrTASnCKFwG6WjuNVaUF foB501GBglIoN9ZAVfjhJfM6A s FRVuhQkdHyP1p8U0Zs4UOGdIA V33CH69aLRmc1B8cQV4V3JxNO VzvueamwwjgQU1MBHtPBBgzV2 7 sRHoOTjtNw4xh2J6v372IPEwM XDsvA67Cb9syZmcUELilUGZcO 8wohdth2wseiszYhLpJOTmQEf 0 EEu2GUEelPemUyIfIES2QcL9U HX8gAVbaD9ixYneblqlsR8yRq c+D2Y8M5AtNxdrxUC+VG94GXJ s TW64pSNqvITxr3pjhIk7WgRsC XAmKQB9aSblQMovp7NmJMSqV9 1xtJVza9A4LVKswXwbdXHmVmD l eNG4eG7kKDbhjtzcg6zkpjfjC zwnd5jzbt58dQ19D45xLZjbNB XuECMeBZBtVDGjfAttvb8hbF5 w Ii8+OHGmhRD1rPZ4cX1oQdAiE lY6MMosZ506FdNxxRCtLjnzp4 rqp0wpgCu9UsBvMPTsayMgsHu u WYV4m2LkNv60P71sLCnyOBCiI HFkHFFwFTNthWqrdo7oeX0lKo 8+IM7sr7tfoe25pM77iID+PHR k YCW5xKpmMYhxZTIaeZ3iSAppA mF5KXUhZmPetO81sHQzXLocWf 5mkWzvrZriGE0lJTCsqjood33 0 LqVco7lhVBLwlVKgMGemWOL8D 77dm5H9PWMdUUFqHIH1dWE5aO 1hbGlnbjogbGVmdDsgdmVydGl j UAcrPOhhS854CRXgmGudDoVri RTuF8sfqcSAMB8qZamabBS+PH AtBKJ6aSpgZYshENDbyI6mFQY p O4r4CpNqYrL9GKlaJ1TvjkG0Q GFsoHMnCIYosPJGgA5hhdtxf4 abloqkEgIuEDTtJIp2VLp0VKV s wTmcHbZvDWN1ZxM2NCC0lOWqv H4ovYcykfbrxV2hEcn+RklOOj wvdGQ+DVOvYSK6iRuiHFcsAFX k mQ4tDPYzD5d4FcZiSfJ9HRzzF 7PotsY8WVEgkDHhCKVmdAJIjR 5hwamzz5myowdjRqNxDELiJWi 0 YNh1IFNmnAqmOpXaMFT9ZkY0E DB1oVNioR5jrXvkmdolwW8zTh c+TVJOOjwvdGQ+VXBkTKF4nTy l PRxyPCOtmP3iZAZyC4z2VvDqQ tO5PQvzN3ReupP0HBRtrKShPP MadJASjP4otaiab1tdjtenYrX w LKWmUGy2SVg8OTObiJxtLbVqA XT0EaD0HAH2zATliW2tpIqhpw vesT6hXsv+BFT7CDM2FS92XB5 8 G2PcFwjmyCPdlLH+PHRhYmxlI HdpZHRoPScxMDAlJyBzdHlsZT 8sGk4xCMIoCUHdvGgqfHHhNjC j b2x (more content not included)... Normal [facility] 2018 Novel Coronavirus (CoVI D-19), SANDRA on 09-11-2020 SARS-CoV-2 (COVID-19) RNA SANDRA+probe Ql (Unsp spec) Not detected Invalid Interpretation Code Not Detected [facility] Comment on above: Order Comment: 72670 [phone] Result Comment: This nucleic acid amplification test was developed and its performance characteristics determined by [facility]. Nucleic acid amplification tests include RT- PCR [...] detected) result in this assay. Performed At: [facility] [id number] Luz Elena Beckford PhD Ph:[phone] Performed By: #### 6 [id number] ####[facility] (DEFAULT)[address] [place] [address] Patient Handouton 09-03-2020 Patient Handout [facility] Progress Note - Provideron 0 09-03-2020 Progress Note - Provider [id number] [facility] Coding Summaryon 09-02-2020 Coding Summary HTMLBase 64 ZvfemswiYZb9eUr+PGhlYWQ+P P4GBAJvR29flFBuaL4HB7sXDK 6JVHHHVQFCUK5AQZ9zaMO0OBh dC2UwalAp BcfewOIyWG93KKm7VLC8cDpfM KvjzQ5kcWIlB3x4OdKbZR25yQ 58PZjxLULiPlW3SsXcvtqtvEL y E9gkLuRwkJVgLyt+PHRhYmxlI HdpZHRoPScxMDAlJyBzdHlsZT 2nAh9hJQGcLPSntCchxXMeUzF j y0npYJLqAZkfXD4ugDetT1Bkq MT8ASYzc4j2Dz30aCD+PHRkIH E1xQpxZZfcp270TvQxe5xbIZT 3 iFOpMZhiNTS1S85hw7S5JIBcK MVsVMX0ySN1sH2pmKvhzoarU2 VyxMDpShM8CJO1iRHymX9smTq n clqepH9yYun+K61SRB1BTUSYT W5WMhs7S3FaNxowlKA+PC90YW EaZE63jICyiKHuh7jpzMw4OkF w QYZvUJM2qWfbVNbzq4MaZXGuY 79naOVgv3X5RCIodXfhtEZfSz VeoFT5eJ1jXPddkcqtn4jiudg n Jqttn7xafc07iA81U86lOTwzL UKzNEQ3VSDiPMBpnFhrzd2jeR 9wIi8+MSrzj1onb7ufcHu8FeG w KJYdnuYneCxlDQR0r5FzGp15Q 0EokAyyq0NpEph4my22dIJje5 F0wCI2FAlvUKJruU3dJThyHbM 6 GJPsCdQbpO50nDMzKBnvCy6nt WugqZkzNA1mAZTeutvxNNUknF 6jBHZatTBweSvkAR4yAPLjbez m z881IyTbJWE3RTSzsVLvR9Yfe C0bTfIvUCHaROSaC6WxvYPhLF cgF420WDheGqZ7QVUybhNbL3V s OWNuxNgeLzE5k8L9Td4Zh7Lrc mmwDZE6OSypKEW6SrG6LiKwJp T1S6FlYsb0SBUgqVuoBM9wS9J h RJDqzjpaotvvxWU0FGIvXJLry J00dGZjPPziYs3zk5E0y474AA EzRLHycV50Ow5juRjgXCGryDA U gY6yuvthq2bsrdjvGaYzNHElB Dg2YEk4FLLkpKupVmLdLHA3Fh R8LMK0yCDixU7caUdcugyxzG4 w Oyc+B40irM6fSVO8GKI5vqzhD NIyqcErUN95GU09D4DuBedavM FibGU+EOZhtlGwoUebWR0qAaT j x8mdc3TpKBnrB4WuETMkHHttC tq8NVUnIJY7ySB1kC4qFFYaOO abq4X4oTH5M4VfxnFhrj6wu4p s UJVtDKduS64ohTWor8Y8JXMyx YB5QJWrrPniMqQxyN71Kvn+PG GhtThew8FuWknve3ftm9adxCt 9 SjZoBGLtxzKinJspEIH6o0YkW o95I42rWJkfWGHjAKQbDNZiDS EfoMoqzk1izO7kCy8+PGNvbCB 3 nSL9yY2xGBOlBnO6QSacC659N cCkySIqGnfvg0kco9keyLs7Ow IbITVldkKgnIsbRTH0r8HuPr0 8 X59eULevRGAyMQYqLSXoJDZqk Fskmw5lkU4hUe5+HQ3jq7cioj 60pM12gYK+OHLuDYA4fRzdRQv w MHKcvS8bWIcxCzM0TMLhMpPcr M33yOXzLCrrBm1anCbjkFqrND 9fZRLerqqxi541PaYel6gzREM w aYBwNSqdKLX3B40hs5J5RSSwH EXlBRP3wHG8iP2eeZltpdcumK HmqEteziKvtOkhWWkbQFygQ82 6 IHRvcDsnPlBhdGllbnQgTmFtZ Nv9T9CyYgr2WPXffDzaXL2zvI CmVWneMx9coYvhnUaqXE6kZWV p ecwlz483VtTvn6ztYLEsyBRwI TjkUOU4Y08uv0I9XYUlXCIpMT I8zFM7jQ3cuDujaxnubXVsvFn g hsKtcIgwHPviTRdcP555KSVin MfnPmPdysVwZQJubRL6QK20VH 10kULnp8H5gLZ3Z9MlSZUqcij t zpqazAP2JZAyLBOaoN77Ss3bo UstPh5zJRXhZDX9JMFczXAtF0 AoiF5hYvHbSGDdATZpQ8NayUJ t GJcsU711AEbtWgC2YNGjpsVvA 1IiVUEuxXvpPuJ0l5N7Ga7TQ1 N0JB22WS53zBGjo2K8bAZ6M2K h PNKxzfqymuatgCV9JFHkLWAve C40Vp2fxSmjEt1jHYFlWET6ID VzrLVnO4OqqE1uBtBiITUaJCQ w X8NkfADgEGvqH027RRltHlR4Z YCnhiNkB1OwDNPnbDyaOaX7t7 O7Rk9GDIy9XB15MN47zPQfu5R 5 iJS0K9AbXBVgvwggbhmehCC5A KRdEJVpwK95Ij9zqZfaGo6mSW WcRGJ5THCstDIoO8GtoQ8nEbC j MGDiUCKvN2UtkBTkFIsyU996U QsnNmG3KXEuedWnY7ZlAZPkfU ylUeO7z8J9Ml8PEPZhTT72CRO 5 lIG3GU07QB76S2GtEvdtqMDsn +PHRhYmxlIHdpZHRoPScxMD BeTkZzvUkmUD0bCi4pOYBgYNT v iYhxzILhCoIke8ymYHNnTRjaA X3wsYckH7XnaKJ7PFPca0c2Mw 85R85wT8BvaGN+OFQdkPM5pPT 0 fK1qRnMyCoD1SAzvC303UsRee JAkFxecf7tfb6tqvOz0YkO6OB FcacNlnEcwKOD1c8SzEq57U13 s IHdpZHRoPSIxNSUiIHZhbGlnb j4giX1fGy9+KRMumVS0wNS5kN 3bBlEoHsW0NShgY804JcFqoOL v Cmskh8ixo4tsdNm8DlLvQGTwb uAnmNqoWFY8c8UmKe14L3NnoM uke1UrEgh1fa40nVHik3D1qIX 9 T9RmMLLjldrxzZAeaNpvTD6lT EEdxhflHFKuaU6mIHXiQ5p1Ym NfJyI5LSzsS2SbicP8AFQhkVJ g GSgxBCH5L39qm3Q3JZIyKHHhO FG0jEY8tF3tzLgayuubcVCshZ qyxeQzyXqbWNwsSAkzR890DZM v dMqiJEDzhP0eEEGfpGDhwAnvD F6mKMMufhoeIztRRFSXTEQBPH YNIMxqMNvHVS88V4FbWsc4EOK z yMnqLE5voFFqXGrbQh6xfYatb UamME0dCDCgajhlRGRgeA7xFA KcyBRtmRkgEO2kLFDhncgrb63 0 XbPuXZB6KQFhfBTjW4AkrZ2iM kIcBBWgLPYmN1TlnAAsJQrtL0 59BRysHwD9OIYrieKmM5BtKUS s gYbvSaF3q3C2Wj7jDF8gFh9pL Fl8QT61OC28pPHdd3T7kHN3H3 KdAGQioafjrpiotPD9OFLkHGF w mT27aBFpMZnaVb3ac9T0y153V LPaRIJtiS38Sk7roTdlMIEvdI PLzA5haogaf2fnbkwiRnKpSMU w XQo6RJc1WTPfnMrqSaVsDHV9X tP4THU1oVBbaL2liCmvcriomK 9wOyc+KEIuTXJebgI2E5EuDbg 0 LTBgkTuaNP0gkMIoNHixGp1uy XxdiEwwYP1dYQBairckVXVabG 1uBKArnYNwcUrgRQ8lWXJmznx m l580OwYcKDM9CANfdNTeJ3Zcy A1vGtNxOBHgICAzU1IorWQxSW kqB874CHmrZbL4QQLrguYwE3M s YBOhwJlsFiH8a5D0Uk5GADvAO W07GA74uJMkk9B6sHW7H3KmBN KbuhqkzpgdlMY8VIJkXUZyaY8 7 lWJfMRzeGj7jt3H2t947MARsZ WNfpR50Wg9ojTklNPKifQUBlD 9cfikvg3folfpwNnYtBRNwLQk 0 EUp9ANNgnUcuBjJfWWW6CtS6F IP4zGZpoG8ixSekykwmkM0iJa c+F3Z7M9PmRxhffDQ+VB37AUH s QI09eSErqBSex8zngHj7SwRfV AYpFEW2uGdrFVmjv3HsFOKwA6 7usCHls8T6HYKovDpuqTGhIlF l tMV5jG3rUCfylpnaj0jkxmabR hcmf2xpum29tI92F27rGCpeYY UxEYZcQKFdBONakHlexo8jjN2 w Ii8+FIOnkGA2kAO8lM7kKcDjB fW4HSmeM473MaWezPFzUohvw6 pvj9civYy0IqXxMTPspvRbdVw u SYR8j6ZkGl73X96hPQlqFAPuY JWxWTFxBJXmhDcwwm3heH1kRi 8+IC6kg0fckr83kV57xCH+PHR k NUO0rSmkBVlaVYFfuE4uROlxT qX7GHQsSoDzfT04yZGnHMzvUx 5bsHkbuCreRH9pIAApuyyhp82 0 SbThl9vbQNDnjXZqXPnoPJW1K 38rk2Y2OQEiSSVcIMY5bLZ7aP 1hbGlnbjogbGVmdDsgdmVydGl j JTbsABlcC226TVVocDuqZeLwd BYkS9pdpaKJSW7hCyimpWF+PH UoMNC8jUgxIOszOXBzqO6mZUU p D0u6LgYpLrO6NDwkE9RirpI7V QIizGCkRUOfnWQGaH7vjychm7 aygosrNuBmJJEwHAc3RLg9NWK s dLktUdMeBNA0JrT4VWV6gCApt P0ixZcndukwyW3hKzd+RklOOj wvdGQ+PCQyQQC6bRixSXkgYXZ k nP4dQBOcA5q7ReBsVpS9VPspP 6GdlvG6EEThaSHyCJKexCMHuB 1mqjfsd9ousvwyUeHqNGFiAWf 0 JSw1VWXfoWbhGyVoTRD7BfZ7D BO9xRQxmV3nwPjucwofvU8pRu c+TVJOOjwvdGQ+AJNoLHU0iYs l HGlgGUUqbY8eMANzF2m7SiDjJ aR7AQqjD9OrlbB2CGFtcBTzVV DpbFLKtE9djdcju8snnbzeJlD w SWIzKGo5JVr3DJLdnKbeQzIuC AS8AwT8NJR3wJBroT2gvAhcil nbnE6gBzu+QCZ4SOF3OF47UZ2 8 C7IiQhysfYQmgGX+PHRhYmxlI HdpZHRoPScxMDAlJyBzdHlsZT 0uMc9pXOXuHDPceIbplHSlVsW j b2x (more content not included)... [facility] Progress Note - Nurseon 05-0 Progress Note - Nurse Per Liss add Traz odone 50mg at bedtime. [Electronically Signed on: 08/31/2020 14:14 EDT] Swapna Arana [Verified on: 08/31/2020 14:14 EDT] Swapna Arana [facility] Coding Summaryon 08-26-2020 Coding Summary HTMLBase 64 QgxpxduhAOw5qKj+PGhlYWQ+P N7DETZjW43uaDNdbY0SU5wWNZ 3GLRMSUTAIQH9WMD4ydYU2NEa bT0SlrvUg AedfgLVfFI24UVd9QCH1lBukU PypsA5coNNvP1s2DvUlEY81uF 47LMtdYPJmObG4CyQigewcdGP y I1erJgDybMCjTmo+PHRhYmxlI HdpZHRoPScxMDAlJyBzdHlsZT 5tIx4iHXPkQJUiiMxjoQNzOjY j b5rhIXVpCJvkNX9nqNfsY4Xnp OD7FYKgy8w8Pz17eTA+PHRkIH F8mYhhJZvma758EbVgu1ocERN 3 rBOpABvbDRO5Z20oy5S0BOMpW SVwINN3fTI5wI3yxMzfsldgE3 TekAYkHuT0JIC1tCRxkA6fhBk n lqfbdK2tZap+H60PNR8BNQQDL H2SDyc7R2AmVlpltXH+PC90YW FaFC31xEFfpAVvg7pzwOh4DiA w OREgVRO8vAhhHZake4GtBDIaD 45poXRji2J5NXDjmKgjfAWcLg ImdXU9iP9rLOljqdzmg7xjzzf n Oftja7nyii60tO96J19zEVuoL EVoBLT5LVFrCJRllIltbi7mmP 9wIi8+CVyfw8uya7qnvTl7VdR w GSFxyhFquPbbGYN2w2QoEr77P 3HxfIrgn9KiPvw7kh29dQEmq7 W6zFD6TXleLQCodC0zXItjXzZ 6 XEAdLbGnjM47nLRrXYfaTh9va BeljTciJI9xBZOdaosqKDEqtW 9zMOFymSUgjQqkYT1mCCIlchj m q284HjAuLIP6BZPnqILjJ5Mib S4sTcOwTKYlJFJaB3VbhBLdLK gbA216XCeoRhS6TANgndJiS8N s TJSxaAvwKfQ7b4N8Jl5Tg0Dmz dotDXE3GDdeMXE0JbI7IfNpIj Y3C3GfGvn6MTOfiUdsZR6hO4C h MRJtrfnputkezYQ2BONkQQJbf K89uSLzMFodXl8qs0U2u857ND JaMRItuZ35Ld3irFaaHYIafJW U lU0dxmadh6nsrmubToVzFPQpF Jb6JLn0TIQezNiuGiExWGN5Ei M5BCJ7aJUbaX6hdLuduvuodQ4 w Oyc+M44oyZ1zIYL4PMK8ohdmU BXtcrIgWE47YV35N8ZaFqdbqH FibGU+HHBwwyXfoUzgDN9sXdA j r2rvi9MaCZpeM7GkJAKhSTziO od7XFTjXTA0pAR4iT4nEAIiLQ eva5X0qYP3A0UeggWfgy1lz4d s GTNmOWghT42oxHFgm2I6OQWlh DU5KBFfpFnbOuDjoC62Zjz+PG KnwCerp3AlPfkyg3cvo1njwZw 9 TzLjOQYwxqGucUrhVNB7h4UrE e79H91cGSouECZzIFXcXAPxYD DgrQsebg1bmZ6xUz3+PGNvbCB 3 vTZ1xB5nVSGcMxV5JEdrH953Q eXgiUZhLgffw1bhw2bcbHd6Uz WeEIZsfaQojGgwTKA9h6CyEy4 8 Y22oJPbkCQAmTNKdGSAlESFev Sbwzd4hfE2zYt8+XP3lc7xuqm 26oX57bOX+LBNcPND2xQlzGHh w XOEawZ5pAShtAtB3FHAcEnMie R08yMUaAItqTk2skDeqvRelTL 1xPNWikcsnb642GeLvz8qbWII w sWMkKSncMQW7T36dz8S1RMKjG RCmDUD5eNZ5lW4jnOqzqolilP LuvPihfzGzvSriHWnvOXjhK17 6 IHRvcDsnPlBhdGllbnQgTmFtZ Mp7M4UaWui0ZUQeuAwnKW3dyU HoIYrcHj3qzJehkOguMP6rTQA p pkneq453VgWoa4wgKXOapEMeZ TooLGR1G41ej4D2HATmTSJmOX N7wFB4bB9joQcpkcdlpGXdwHi g lgPboPmfOSmrODtxS895BGZub ClbItPjdnMpXBYpjBT2EP75DL 28gZApo4Y4uOY0I1VhBSHtsff t zrelbTS8IDZfBBGshU29Cw2cb MutGr3wVEKuKXJ6CNFvaVVoQ9 TydD3mEyFiRCIfHEJyL1FviLE t SCxiD875OEsoIlK5FSLicxGiF 9RhOJCezHgzUhL0m1H3Fy9OI4 N9LK81EJ02yKAjh0F1sMT1P3Q h CKBgzggvquvhcID2FPItSTAoq Q86Qt6jgGeoJn6cVQDeSCU4OA VpdGDdK7LvyR5iBiTwXQFzXCB w L7FlyKFyUGqzX375DAfmItH7Z ORizcHhA4KjMBGtwAwmLeN8d0 M0Wm9JSJz0OW80AI16wXInp6W 5 nPZ4Q9HnGWOuybdcuneziCJ8Q TSvHFKqiB83Sw6haPxtQj4aFT HsUCM2OIUoxOEqJ5JjnI6oRsR j FYMgJOXbC0PnkIDkCTilU712S GbxMiF3LOXzyjFcJ0NiMFSxoI caUyD9m6W0Sh6DWRYfNY77IAQ 5 rKA0PB83DV30H2HgPpuiuMKie +PHRhYmxlIHdpZHRoPScxMD SsRnMkuUvjXG0oAd3qTSNpPQG v rCuvtUUlQfEgm0ocKNQzCMskK R8tyItcU7YfeRJ0QOGqh7u0Td 85T97nA0QpaUG+CHVneBB9wBF 0 qP7gIzVoHfZ4TRhoC126DtCbv FHaTikpj0num5xyaDk3LwW5DM YegkArzHflLLY2h8DdUq47G17 s IHdpZHRoPSIxNSUiIHZhbGlnb i1xuM0oHa8+QTAfeGB3nIL4uR 0nKwPxNnQ5SVyrK812SsUomEC v Ytkex1eur8glfCn6AjTaLDPmf sIsqSowVAF4z3IhQl88Y8KleZ sgd2VpZmj9ts43fSFlt8A2wOS 9 Z0TvCFFnkoxrlGVukBtwZX2xV TIppnwaTDBzmX7oTWObQ7f8Jf OtEuH7FIjwF6EqfjR2RRTajGC g BWjnEPE4U80fu4Q2EZGbSMQoL WS9cMQ0pD4qoBatierzgQUziE cpczEyhYzcGZfrVZjbK783TUN v eAfnKNBjlR1pHIQjoOSyvJkyN P9pVAGsnjuaFghRXLGDMJRIDI ADFSptJBdUZH55V8HmItv7OKW z kEbsYC5ifYWhTPldSn7txQbpg YdnLG2xKDMwhlhkOAIjqA7eQI WpwGZsgQewIJ7vXGSuhpdkk64 0 WgEoFOS4XERjsWTvB3EonO9jO yOlIETxBJDsO0WcaMPbMBsqO8 00VKbgJgO6OSPlmfAnQ4CuUBB s sZbgAjP2b9Y5Ks8hMH7lSg6mY Qr6ZX56WS31nPKgg8O2eUX9P2 QmUAUgefiukhtahTE5SIVlHGY w dJ32rFDrZWjjMy1ei6D4p063U ZZeEKOdaG57Kc7dnMgjXRSdpO DQdZ1vbibba8xjrvlrNjCiUTD w TOq9BBp0HKJbpNimJjHsVSZ7T oJ6ACP2cULimA1qrCzvcjkssE 9wOyc+EDZxVHCtoiC1T1NjCqq 0 CZOubLnyGZ5goIPkOJjgGg9ly LxbdDkhKY4pYBWrsfkgJTQkgG 9dZZHusUHkwLelAS1iNFYwuzp m o707SaTpZZP4ACTisWWzM5Ohm M7lElOjDRAnDUUkQ7XaiIVuOM uiP838RLstPiX2RPOutcBxG8P s RNXrhXqjHnZ8w2N4Zh9JXWrOK Z27RA41tQRpb0G5yZJ7R8JoYS AnpmhkiwtvbBE5NOUyLQQpdI2 7 rZFwQHacPg2kt0J6u114EXTzA LDevD09Sh0hqVbaFOTwxZLAxK 7ogplyz7bntlhmWrIgENXiHHt 0 GYf4NJNrwLheZzQuITU1YvR3Q MV3zYLiyS2hhIweqqbsoB6ePu c+O7J5M6DsSssrxJB+FS13MKA s NZ22xBRejJVdc6wugTj7XhGaN XWlERA2lWfeQXvqh7HtCEGfR8 9wrQIkc9J1IAHxbMjhhJZlYuG l gFE9eW2dFOrjvehwm3rquzreK okry5ihmu13yL63D75uXXffML UbZTEeZQDcZPLquRxtmu0cgV8 w Ii8+ROHclGJ0iQX5sH2vTrShJ kA6TAwiR486OoGjaDJqYnjgv1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 Gender:M Ordering : SUNI DUENAS . Admission #: [id number] Family : DR JHON LIND D.O. Order #: [id number] CLICK HERE TO VIEW EXAM RADIOLOGY REPORT [...] M.D. on 12/26/2018 at 20:31 Approved by: Holil Bianchi M.D. on 12/26/2018 at 20:36 Normal [facility] ER URINE PROFILEon 9 Bilirubin [Mass/Vol] Negative Normal NEGATIVE [facility] Comment on above: Performed By: #### GHULAM RAMIREZ #### [facility] [address] [place] [address] Jorge Lanny BLOOD SMALL Normal NEGATIVE [facility] Comment on above: Performed By: #### GHULAM RAMIREZ #### [facility] [address] [place] [address] Jorge Lanny Clarity (U) CLEAR Normal [facility] Comment on above: Performed By: #### GHULAM RAMIREZ #### [facility] [address] [place] [address] Jorge Lanny Color (U) YELLOW Normal YELLOW [facility] Comment on above: Performed By: #### GHULAM RAMIREZ #### [facility] [address] [place] [address] Jorge Lanny ERUAHD A micrscopic examina tion will be performed if indicated. Normal [facility] Comment on above: Performed By: #### GHULAM RAMIREZ #### [facility] [address] [place] [address] Jorge Lanny Glucose [Mass/Vol] Negative Normal NEGATIVE [facility] Comment on above: Performed By: #### GHULAM RAMIREZ #### [facility] [address] [place] [address] Jorge Lanny Ketones Ql (U) Negative Normal NEGATIVE [facility] Comment on above: Performed By: #### GHULAM RAMIREZ #### [facility] [address] [place] [address] Jorge Lanny Nitrite Ql (U) Negative Normal NEGATIVE [facility] Comment on above: Performed By: #### JERRY RAMIREZRO #### [facility] [address] [place] [address] Jorge Lanny pH (Bld) 5.5 Normal 5-9 [facility] Comment on above: Performed By: #### GHULAM RAMIREZ #### [facility] [address] [place], [place] [address] Jorge Lanny Protein (U) [Mass/Vol] Negative Normal [facility] Comment on above: Performed By: #### GHULAM RAMIREZ #### [facility] [address] [place], [place] [address] Jorge Lanny SPEC GRAVITY >=1.030 Normal 1.005-<=1. 025 [facility] Comment on above: Performed By: #### GHULAM RAMIREZ #### [facility] [address] [place] [address] Jorge Lanny UR MICRO IND INDICATED Normal [facility] Comment on above: Performed By: #### GHULAM RAMIREZ #### [facility] [address] [place], [place] [address] Jorge Lanny Urobilinogen Qn (U) 0.2 EU/dl Normal [facility] Comment on above: Performed By: #### GHULAM RAMIREZ #### [facility] [address] [place], [place] [address] Jorge Lanny WBC (Bld) [#/Vol] Negative Normal NEGATIVE [facility] [place] [facility] Comment on above: Performed By: #### GHULAM RAMIREZ #### [facility] [address] [place] [address] Jorge Lanny PROF CHEM 8 (BAS METB)on Anion gap [Moles/Vol] 14.9 mmol/L Normal [facility] Comment on above: Performed By: #### B MP #### [facility] [address] [place], [place] [address] Jorge Lanny Calcium [Mass/Vol] 8.9 mg/dL Normal 8.4-10.2 [facility] Comment on above: Performed By: #### B MP #### [facility] [address] [place], [place] [address] Jorge Lanny Chloride [Moles/Vol] 105 mmol/L Normal 98-107 [facility] Comment on above: Performed By: #### B MP #### [facility] [address] [place] [address] Jorge Lanny CO2 [Moles/Vol] 23.9 mmol/L Normal 22.0-30.0 [facility] Comment on above: Performed By: #### B MP #### [facility] [address] [place] [address] Jorge Lanny Creatinine [Mass/Vol] 1.05 mg/dL Normal 0.66-1.25 [facility] Comment on above: Performed By: #### B MP #### [facility] [address] [place] [address] Jorge Lanny EGFR-AF NEW ZEALANDER >60 Normal >=60 [facility] Comment on above: Performed By: #### B MP #### [facility] [address] [place] [address] Jorge Lanny EGFR-NON AF NEW ZEALANDER >60 Normal >=60 [facility] Comment on above: Performed By: #### B MP #### [facility] [address] [place] [address] Jorge Lanny Glucose [Mass/Vol] 102 mg/dL Normal 74-106 [facility] Comment on above: Performed By: #### B MP #### [facility] [address] [place] [address] Jorge Lanny Potassium [Moles/Vol] 3.8 mmol/L Normal 3.4-5.0 [facility] Comment on above: Performed By: #### B MP #### [facility] [address] [place] [address] Jorge Lanny Sodium [Moles/Vol] 140 mmol/L Normal 137-145 [facility] Comment on above: Performed By: #### B MP #### [facility] [address] [place] [address] Jorge Lanny Urea nitrogen [Mass/Vol] 17.0 mg/dL Normal 9.0-20.0 [facility] Comment on above: Performed By: #### B MP #### [facility] [address] [place] [address] Jorge Lanny Urea nitrogen/Creatinine [Mass ratio] 16.2 mg/mg Normal [facility] Comment on above: Performed By: #### B MP #### [facility] [address] [place], [place] [address] Jorge Lanny URINE MICROSCOPIC ONLYon Bacteria LM.HPF (Urine sed) [#/Area] NONE SEEN Normal NONE SEEN [facility] Comment on above: Performed By: #### E RUR, UMICRO #### [facility] [address] [place], [place] [address] Jorge Lanny CAST NONE SEEN Normal NONE SEEN [facility] Comment on above: Performed By: #### E RUR, UMICRO #### [facility] [address] [place] [address] Jorge Lanny Crystals LM Nom (Urine sed) NONE SEEN Normal NONE SEEN [facility] Comment on above: Performed By: #### E RUR, UMICRO #### [facility] [address] [place] [address] Jorge Lanny CULTURE NOT INDICATED Normal [facility] Comment on above: Performed By: #### E RUR, UMICRO #### [facility] [address] [place], [place] [address] Jorge Lanny Epithelial cells LM.HPF (Urine sed) [#/Area] RARE Normal [facility] Comment on above: Performed By: #### E RUR, UMICRO #### [facility] [address] [place], [place] [address] Jorge Lanny MUCOUS NONE SEEN Normal NONE SEEN [facility] Comment on above: Performed By: #### E RUR, UMICRO #### [facility] [address] [place], [place] [address] Jorge Lanny RBC (U) [#/Vol] 5-10 Normal 0-2 [facility] Comment on above: Performed By: #### E RUR, UMICRO #### [facility] [address] [place], [place] [address] Jorge Lanny WBC (Bld) [#/Vol] NONE SEEN Normal NONE SEEN [facility] Comment on above: Performed By: #### E RUR, UMICRO #### [facility] [address] [place] [address] Jorge Ca Coding Summary.on 08-19-2017 Coding Summary. CODING DATE: 018 FINAL [facility] STATUS: Home (Routine DC) PAYOR: [facility] DESCRIPTION [address] CT and CTA with [...] Nava Date Saved: 08/19/2017 10:26 am Normal [facility] Auto Diffon 08-18-2017 Basophils Auto #/vol (Bld) 0.0 E9/L Normal 0.0-0.2 [facility] Comment on above: Order Comment: Order Added by Discern Expert. Performed By: #### 2 [id number], 3178149, 8390835, 3202298, 86332192, 0560665 ####[facility] [address] [place] [address] Basophils Auto #/vol (Bld) 0.6 % Normal 0.0-2.0 [facility] Comment on above: Order Comment: Order Added by Discern Expert. Performed By: #### 2 568127, 9764516, 5011643, 0167246, 79393290, 1819114 ####[facility] [address] [place] [address] Eosinophils 0.2 E9/L Normal 0.0-0.5 [facility] Comment on above: Order Comment: Order Added by Discern Expert. Performed By: #### 2 582533, 7341519, 7892063, 1260085, 63675608, 2786220 ####[facility] [address] [place] [address] Eosinophils/100 leukocytes 2.9 % Normal 0.0-8.0 [facility] Comment on above: Order Comment: Order Added by Petar Expert. Performed By: #### 2 208776, 9104129, 9264538, 4239627, 89283356, 9399542 ####[facility] [address] [place] [address] Lymphocytes 2.4 E9/L Normal 1.0-4.0 [facility] Comment on above: Order Comment: Order Added by Petar Expert. Performed By: #### 2 059154, 1565000, 0232500, 0986144, 77094281, 8412358 ####[facility] [address] [place] [address] Lymphocytes/100 leukocytes 29.5 % Normal 14.0-50.0 [facility] Comment on above: Order Comment: Order Added by Petar Expert. Performed By: #### 2 995963, 4921958, 6539571, 7249901, 14774284, 7494348 ####[address] [place] [address] Monocytes 0.5 E9/L Normal 0.2-1.0 [facility] Comment on above: Order Comment: Order Added by Petar Expert. Performed By: #### 2 203464, 8379379, 6269540, 3971741, 70028396, 4978634 ####[address] [address] Monocytes/100 leukocytes 5.6 % Normal 4.0-14.0 [facility] Comment on above: Order Comment: Order Added by Petar Expert. Performed By: #### 2 338077, 8407087, 8126079, 7870543, 40930191, 1764299 ####[facility] [address] [place] [address] Neutrophils 5.1 E9/L Normal 2.0-7.5 [facility] Comment on above: Order Comment: Order Added by Petar Expert. Performed By: #### 2 189526, 3222649, 3916933, 7550009, 77119610, 3425057 ####[facility] [address] [place] [address] Neutrophils/100 leukocytes 61.4 % Normal 36.0-75.0 [facility] Comment on above: Order Comment: Order Added by Discern Expert. Performed By: #### 2 693083, 2735874, 4743293, 9350902, 32137243, 3824843 ####[facility] [address] [place] [address] BMPon 08-18-2017 BUN/Creatinine Ratio 20 No Units Normal 10-[address] [facility] Comment on above: Performed By: #### 2 347958, 1040358, 4712634, 5615666, 66100730, 3204636 ####[facility] [address] [place] [address] Creatinine 0.9 mg/dL Normal 0.5-1.3 [facility] Comment on above: Performed By: #### 2 861653, 7067029, 8749029, 4304141, 65545151, 2783927 ####[facility] [address] [place] [address] Urea nitrogen 18 mg/dL Normal 5-21 [facility] Comment on above: Performed By: #### 2 034144, 9583147, 0955955, 0265389, 95656162, 3644333 ####[facility] [address] [place] [address] Anion gap 10 mmol/L Normal 6-16 [facility] Comment on above: Performed By: #### 2 822063, 3438725, 4058472, 5921302, 06683747, 4523743 ####[facility] [address] [place] [address] Calcium 9.2 mg/dL Normal 8.9-11.1 [facility] Comment on above: Performed By: #### 2 187181, 4563925, 4372282, 5258047, 10169054, 4484515 ####[facility] [address] [place] [address] Chloride 105 mmol/L Normal 101-111 [facility] Comment on above: Performed By: #### 2 657413, 3026437, 5744410, 0928325, 38556953, 2940797 ####[facility] [address] [place] [address] CO2 27 mmol/L Normal 21-31 [facility] Comment on above: Performed By: #### 2 703893, 6166453, 5966407, 8345624, 11023804, 8166824 ####[facility] [address] [place] [address] Glucose mass conc 135 mg/dL Normal 55-199 [facility] Comment on above: Result Comment: If t his glucose result represents a fasting glucose, interpretation should refer to the following reference range: 55-99 mg/dL Performed By: #### 2 726866, 4312571, 1580066, 4461240, 51481938, 8223176 ####[facility] [address] [place] [address] Potassium molar conc 3.6 mmol/L Normal 3.5-5.3 [facility] Comment on above: Performed By: #### 2 729456, 0360278, 2606508, 5949469, 45342481, 0596489 ####[facility] [address] [place] [address] Sodium 138 mmol/L Normal 135-145 [facility] Comment on above: Performed By: #### 2 061138, 9072336, 2340063, 6509145, 19968630, 4939964 ####[facility] [address] [place] [address] CBC w/ Auto Diffon 8 Erythrocyte distribution width Auto Ratio (RBC) 13.4 % Normal 10.9-14.2 [facility] Comment on above: Performed By: #### 2 885917, 4338606, 6349728, 2576733, 39473839, 5030250 ####[facility] [address] [place] [address] Erythrocytes (RBC) 5.4 E12/L Normal 4.3-5.9 [facility] Comment on above: Performed By: #### 2 872658, 3066691, 1231655, 6016174, 83711159, 6796750 ####[facility] [address] [place] [address] Hematocrit (HCT) 46.8 % Normal 37.7-49.0 [facility] Comment on above: Performed By: #### 2 267672, 8418216, 9304289, 4000767, 02774237, 0172763 ####[facility] [address] [place] [address] Hemoglobin mass conc (Bld) 15.6 g/dL Normal 13.5-17.5 [facility] Comment on above: Performed By: #### 2 759604, 8589573, 6211138, 4250846, 40245476, 6767041 ####[place] 8869057 MCH 29.1 pg Normal 27.0-34.0 [facility] Comment on above: Performed By: #### 2 657081, 5478230, 2007570, 3479530, 88356143, 1903774 ####[facility] [address] [place] [address] MCHC mass conc (RBC) 33.4 g/dL Normal 31.4-39.3 [facility] Comment on above: Performed By: #### 2 686381, 8839549, 8813678, 0040822, 03364111, 2016300 ####[facility] [address] [place] [address] MCV 87.1 fL Normal 80.0-100.0 [facility] Comment on above: Performed By: #### 2 720556, 9265747, 0701869, 3099671, 93660008, 9765530 ####[place] [address] [place] [address] Platelet mean volume (PMV) 7.6 fL Normal 6.4-10.8 [facility] Comment on above: Performed By: #### 2 564525, 2979754, 2820343, 0185011, 33520155, 6637068 ####[facility] [address] [place] [address] Platelets 302.0 E9/L Normal 150.0-500. 0 [facility] Comment on above: Performed By: #### 2 066779, 6885872, 1727231, 3154407, 40798991, 7647601 ####[facility] [address] [place] [address] WBC (Leukocytes) 8.3 E9/L Normal 4.0-11.0 [facility] Comment on above: Performed By: #### 2 969809, 3985452, 9074801, 9723691, 02166433, 2152945 ####[facility] [place] [address] CTA Cheston 08-18-2017 CTA Chest Exam Date/Time:2017 [...] Isovue 370Contrast amount in ml's: 95 Normal [facility] Cardiac 0 Hr.on 08-18-2017 CREATINE KINASE.MB:CCNC:PT:SER/ PLAS:QN:EIA 0.7 ng/mL Normal 0.3-4.9 [facility] Comment on above: Performed By: #### 1 0167433 ####[facility] [address] [place] [address] Myoglobin 13 ng/mL Normal <=69 [facility] Comment on above: Performed By: #### 1 5232205 ####[facility] [address] [place] [address] Troponin I.cardiac mass conc ng/mL Normal <=0.03 [facility] Comment on above: Result Comment: New Troponin Assay 09/11/13ROC MT Cutoff value > or = 0.03 ng/mL in conjunction with clinical conditions of myocardial infarction.([email or web address].org/guidelines) Performed By: #### 1 6663573 ####[facility] [address] [place] [address] Creatine kinase (CK) 45 Int._Unit/L Normal 14-261 [facility] Comment on above: Performed By: #### 1 [id number] ####[facility] [address] [place] [address] Discharge Instructionson Discharge Instructions Patient arri ve to transport patient home. Dischagre instructions complete, RR equal and non labored and nurs eeducated to make follow up and return for worsenign symptoms. Patinet provided with strainer. Normal [facility] Comment on above: Result Comment: Elec tronically Signed By: Danika SIMON, Barber Aguilar\.br\Date and Time Signed: 08/18/17 14:39 EDT ED Clinical Summaryon 2017 ED Clinical Summary (Inserted Image. Asmita ble to display) [place] [id number] ED Clinical SummaryPerson Information Name: CARMELITA EASTMAN/Bandar Age: 41 Years : 1975 12:00 AM Sex: Male Language:Irish PCP: MILLER BUNN DO Marital Status: Visit [...] PM 08/18/2017 2:40 PM 08/18/2017 2:40 PM ADDRESS:[facility] [place] [id number] [facility] DOC NOTES: MEDICAL INFORMATION: Prescriptions Given:Prescription [...] Refills(s) 0 PATIENT EDUCATION INFORMATION: Instructions:Flank Pain, Hqwv-st-Ubaj; Urine Strainer; Kidney Stones Follow up:With: Address: When: Fito Fortune [address] [place] [address] [place] [address] Business (1) Within 5 to 7 days Comments: Call physician if symptoms worsen Return to ED if symptoms worsen With Dr. Fortune regarding her kidney stones. With: Address: When: MILLER SUNILJAGUAR [facility] [place] [place], [place] [id number] Business (1) In 3 days 08/21/2017 Comments: Call physician if symptoms worsen Return to ED if symptoms worse DIAGNOSIS:1:Right flank pain; 2:Right kidney stone Normal [facility] ED Note-Physicianon 08-19-19 18 ED Note-Physician Basic Information Ti me Seen: Rebolledo Maddy Tacho 08/18/2017 08:11Chief Complaint pt. states 0230 this [...] judgement, normal psychiatric thoughts. Reviewed by Dr. ParsonsMedical Decision Making The patient records reviewed. Pain [...] refills Follow-up With When Contact Information MILLER BARBERJAGUAR In 3 days 08/21/[address] [place] [address]- Business (1) Additional Instructions: Call physician if symptoms worsen Return to ED if symptoms worse Fito Fortune Within 5 to [address] [place] [id number]- Business (1) Additional Instructions: Call physician if symptoms worsen Return to ED if symptoms worsen With Dr. Fortune regarding her kidney stones. Patient Education Flank Pain, Hcvm-jv-Hlry Urine Strainer Kidney StonesAttestation Patient was seen and evaluated by Dr. Rebolledo. Patient was seen with the medical student Vero José, MS3 I personally saw and evaluated the [...] 08:27:00) Lymph Auto: 29.5 % (08/18/17 08:27:00) [place] Auto: 5.6 % (08/18/17 08:27:00) Eos Auto: 2.9 % (08/18/17 08:27:00) Basophil Auto: 0.6 % (08/18/17 08:27:00) Neutro Absolute: 5.1 E9/L (08/18/17 08:27:00) Lymph Absolute: 2.4 E9/L (08/18/17 08:27:00) [place] Absolute: 0.5 E9/L (08/18/17 08:27:00) Eos Absolute: 0.2 E9/L (08/18/17 08:27:00) Basophil Absolute: 0 E9/L (08/18/17 08:27:00) Glucose Lvl: 135 mg/dL (08/18/17 08:27:00) BUN: 18 mg/dL (08/18/17 08:27:00) Creatinine: 0.9 mg/dL (08/18/17 08:27:00) eGFR: >60 (08/18/17 08:27:00) eGFR AA: >60 (08/18/17 08:27:00) BUN/Creat Ratio: 20 (08/18/17:27:00) Sodium Lvl: 138 mmol/L (08/18/17 08:27:00) Potassium Lvl: 3.6 mmol/L (08/18/17 08:27:00) Chloride: 105 mmol/L (08/18/17 08:27:00) CO2: 27 mmol/L (08/18/17 08:27:00) AGAP: 10 mEq/L (08/18/17 08:27:00) Calcium Lvl: 9.2 mg/dL (08/18/17 08:27:00) Alk Phos: 60 Int._Unit/L (08/18/17 08:27:00) ALT: 24 Int._Unit/L (08/18/17 08:27:00) AST: 21 Int._Unit/L (08/18/17 08:27:00) Total Protein: 7.6 gm/dL (08/18/17 08:27:00) Albumin [...] the liver is not included within the tisox-ve-spsw of this renal stone protocol study. The [...] No acute ischemic changes. No ectopy. Normal [facility] Comment on above: Result Comment: Elec tronically Signed By: Vero Gonzalez\.br\Date and Time Signed: 08/18/17 08:48 EDT\.br\Electronically Co-Signed By: Maddy Rebolledo DO\.br\Date and Time Co-Signed: 08/18/17 12:34 EDT ED Patient Summaryon 018 ED Patient Summary (Inserted Image. Asmita ble to display) [place] [id number] Patient Discharge Instructions Person Information Name: CARMELITA EASTMAN Age: 41 Years Date: 08/18/2017 8:03 AMDischarge Diagnosis: 1:Right flank pain; 2:Right kidney stone Primary Care Physician: MILLER BUNN DO Provider InformationPrimary Provider: Maddy Rebolledo [employer] Mixer:None The exam and treatment you received in the Emergency Department were for an urgent problem and are not intended as complete care. It is important that you follow up with a doctor, nurse practitioner, or physician?s assistant toddler teacher for ongoing care. If your symptoms become worse or you do not improve as expected and you are unable to reach your usual health care provider, you should return to the Emergency Department. We are available 24 hours a day. CARMELITA EASTMAN has been given the following list of patient education materials, prescriptions and follow-up instructions: Follow-up Instructions:With: Address: When: Fito Fortune [address] [place] [address] [employer] (1) Within 5 to 7 days Comments: Call physician if symptoms worsen Return to ED if symptoms worsen With Dr. Fortune regarding her kidney stones. With: Address: When: MILLER BUNN [address] [place] [address] [id number] [facility] (1) In 3 days 08/21/2017 Comments: Call physician if symptoms worsen Return to ED if symptoms worse In the event that this physician does not participate in your insurance network, please consult with your insurance company to find a nearby participating provider. Patient Education Materials:Flank Pain, Zaen-bd-Qybo; Urine Strainer; Kidney Stones A MESSAGE TO ALL PATIENTS REGARDING OPIOIDS PRESCRIPTION OPIOIDS: WHAT YOU NEED TO KNOW Prescription opioids can be used to help relieve wmyymgjj-hj-vikqkc pain and are often prescribed following a [...] be struggling with addiction, tell your health aged or disabled carer and ask for guidance or call [facility]?S National Helpline at 0-052-401-NEQC. q Source: [place] Department of Health and Human Services/Center for Disease Control & Prevention [facility] Medications Given:Medication Dose Route Sodium [...] 0.Comment: Pharmacy Information: Thank you for choosing [facility] Patient Education Materials: Flank PainFlank pain [...] 08/31/2014 Document Reviewed: 11/28/2012ExitCare? Patient Information ?2014 5minutes. This information is not intended to replace [...] 07/08/2012 Document Reviewed: 02/26/2009ExitCare? Patient Information ?2014 5minutes. This information is not intended to replace [...] reduce the incidence of recurrences.? Only take bcjk-ije-ahiqlco or prescription medicines for pain, discomfort, or [...] 12/17/2013 Document Reviewed: 09/17/2013ExitCare? Patient Information ?2015 [employer] [facility]. This information is not intended to replace advice given to you by your health care provider. Make sure you discuss any questions you have with your health care provider.JUAN JOSE Michele JEREMY A , have received the following patient education materials/instructions and have verbalized understanding: Patient Education Materials: Flank Pain, Emyj-mc-Zboa; Urine Strainer; Kidney Stones Follow-up Instructions: With: Address: When: Fito Fortune [address] [place] [address] Business (1) Within 5 to 7 days Comments: Call physician if symptoms worsen Return to ED if symptoms worsen With Dr. Fortune regarding her kidney stones. With: Address: When: [place] [address] [facility] () In 3 days 08/21/2017 Comments: Call physician if symptoms worsen Return to ED if symptoms worse Prescriptions: [dicyclomine (Bentyl 20 mg Tab)] [ondansetron (Zofran ODT 8 mg Tab-Dis)] [orphenadrine (orphenadrine 100 mg ER Tab)] Patient Signature Clinician/Nurse Signature 08/18/17 14:41:01 Normal [facility] Hep Func Panelon 08-18-2017 Bilirubin (direct) UTC Abnormal 0.1-0.9 [facility] Comment on above: Result Comment: Resu lt verified by Discern Rule. Performed result UTC (Unable to Calculate) was sent as an Alpha code due the inability to calculate a valid numeric value. Performed By: #### 2 524069, 8899320, 9255379, 6036472, 20358881, 4694852 ####[facility] [address] [place] [address] Alanine aminotransferase (ALT) 24 Int._Unit/L Normal 6-46 [facility] Comment on above: Performed By: #### 2 946917, 6036166, 2379695, 0857642, 06104101, 2404392 ####[facility] [address] [place] [address] Albumin 4.1 g/dL Normal 3.3-5.0 [facility] Comment on above: Performed By: #### 2 518708, 4664695, 6058323, 0232597, 47521983, 9213922 ####[facility] [address] [place] [address] Albumin 1.2 g/dL Normal 1.1-2.2 [facility] Comment on above: Performed By: #### 2 490324, 4322308, 5360132, 6879873, 19219725, 3376307 ####[facility] [address] [place] [address] Alkaline phosphatase (ALP) 60 Int._Unit/L Normal 21-98 [facility] Comment on above: Performed By: #### 2 770692, 5372684, 5080008, 4325504, 59716904, 7348942 ####[facility] [address] [place] [address] Aspartate aminotransferase (AST) 21 Int._Unit/L Normal 5-43 [facility] Comment on above: Performed By: #### 2 866444, 1666559, 5911707, 2772787, 87974822, 1369568 ####[facility] [address] [place] [address] Bilirubin (direct) mg/dL Normal 0.1-0.4 [facility] Comment on above: Performed By: #### 2 195213, 2786940, 7688586, 9100714, 89819301, 4660346 ####[facility] [address] [place] [address] Bilirubin (total) 0.4 mg/dL Normal 0.0-1.1 [facility] Comment on above: Performed By: #### 2 635725, 4662594, 0192701, 9951868, 98523463, 6285220 ####[facility] [address] [place] [address] Globulin 3.5 g/dL Normal 1.4-4.0 [facility] Comment on above: Performed By: #### 2 111909, 5110795, 6652011, 9128691, 20192344, 8674876 ####[facility] [address] [place] [address] Protein 7.6 g/dL Normal 6.0-7.8 [facility] Comment on above: Performed By: #### 2 113502, 0147000, 1487471, 4806153, 41959001, 6366691 ####[facility] [address] [place] [address] Lipase Levelon 08-18-2017 Lipase 28 unit/L Normal 13-58 [facility] Comment on above: Performed By: #### 2 363661, 2319225, 8146008, 0461291, 22998706, 7468431 ####[place] [address] UA With Cult Reflexon 2017 Bilirubin Ql (U) Negative Normal Negative [facility] Comment on above: Performed By: #### 1 0710232 ####[place] [address] COLOR:TYPE:PT:URINE:NO M:AUTO YELLOW Normal Yellow [facility] Comment on above: Performed By: #### 1 5260694 ####[place] [address] Erythrocytes (RBC) 0-3 Normal 0-3 [facility] Comment on above: Performed By: #### 1 8925965 ####[place] [address] GLUCOSE:MCNC:PT:URINE: QN:TEST STRIP Negative Normal Negative [facility] Comment on above: Performed By: #### 1 6155372 ####[place] [address] KETONES:MCNC:PT:URINE: QN:TEST STRIP Negative Normal Negative [facility] Comment on above: Performed By: #### 1 8892912 ####[place] [address] LEUKOCYTES:PRTHR:PT:UR INE:ORD:AUTOMATED Negative Normal Negative [facility] Comment on above: Performed By: #### 1 9750937 ####[place] 8869057 UA Spec Desc Clean Catch Normal [facility] Comment on above: Performed By: #### 1 5039929 ####[facility] [address] [place] [address] Urine, clarity CLEAR Normal Clear [facility] Comment on above: Performed By: #### 1 0098359 ####[facility] [address] [place] [address] Urine, hemoglobin presence Negative Normal Negative [facility] Comment on above: Performed By: #### 1 2848053 ####[facility] [address] [place] [address] Urine, leukocytes in sedmiment 0-5 Normal 0-5 [facility] Comment on above: Performed By: #### 1 7401156 ####[facility] [address] [place] [address] Urine, mucus presence in sediment TRACE Normal [facility] Comment on above: Performed By: #### 1 2558178 ####[facility] [address] [place] [address] Urine, nitrite presence Negative Normal Negative [facility] Comment on above: Performed By: #### 1 1318302 ####[facility] [address] [place] [address] Urine, pH 6.0 [pH] Invalid Interpretation Code 5.0-9.0 [facility] Comment on above: Performed By: #### 1 1523842 ####[facility] [address] [place] [address] Urine, protein Negative Normal Negative [facility] Comment on above: Performed By: #### 1 7123505 ####[facility] [address] [place] [address] Urine, specific gravity 1.025 Invalid Interpretation Code 1.005-1.03 0 [facility] Comment on above: Performed By: #### 1 3396622 ####[facility] [address] [place] [address] Urine, squamous cells in sediment 0-2 Normal 0-2 [facility] Comment on above: Performed By: #### 1 7262542 ####[facility] [address] [place] [address] Urine, urobilinogen 0.2 {Jo'U}/dL Normal 0.0-1.0 [facility] Comment on above: Performed By: #### 1 2955453 ####[facility] [address] [place] [address] eGFRon 08-18-2017 eGFR (black) mL/min/{1.73_m2} Normal >=59 [facility] Comment on above: Order Comment: Order added by Discern Expert. Result Comment: eGFR is race adjusted. AA=. Performed By: #### 2 569148, 3776134, 6295089, 4425997, 51985930, 9025673 ####[facility] [address] [place] [address] eGFR (non-black) mL/min/{1.73_m2} Normal >=59 [facility] Comment on above: Order Comment: Order added by Discern Expert. Result Comment: Silver Plater yvonne kidney disease could be indicated at eGFR's of less than 60 mL/min/1.73m2. Kidney failure is indicated at less than 15 mL/min/1.73m2. Performed By: #### 2 170304, 2148129, 4484935, 6880242, 14323848, 6603907 ####[facility] [address] [place] [address] Vital Signs Date Time Vital Sign Value Performing Clinician Facility 10-23-2023 01:36-0400 Diastolic blood pressure 76 mm[Hg] CHRISTA Oneil Work Phone: [facility] 10-23-2023 01:36-0400 Heart rate 79 /min CHRISTA Oneil Work Phone: [facility] 10-23-2023 01:36-0400 Respiratory rate 18 /min CHRISTA Oneil Work Phone: [facility] 10-23-2023 01:36-0400 SaO2% (BldA) [Mass fraction] 95 % MANAGER HEMATOLOGY Luly Franciscarbacher Work Phone: [facility] 10-23-2023 01:36-0400 Systolic blood pressure 139 mm[Hg] MANAGER HEMATOLOGYNara SpringerLuly Franciscarbacher Work Phone: [facility] 10-23-2023 00:17-0400 Body height 177.8 cm MANAGER HEMATOLOGYNara BlevinsLuly Franciscarbacher Work Phone: [facility] 10-23-2023 00:17-0400 Body temperature 98.1 [degF] MANAGER HEMATOLOGYNara Clintonacher Work Phone: [facility] 10-23-2023 00:17-0400 Body weight 108.86 kg MANAGER HEMATOLOGYNara BlevinsLuly Franciscarbacher Work Phone: [facility] 10-04-2023 11:27-0400 Body height 175.26 cm MANAGER HEMATOLOGYNara SpringerLuly Ozacher Work Phone: [facility] 10-04-2023 11:27-0400 Body mass index (BMI) [Ratio] 37 kg/m2 MANAGER HEMATOLOGYNara SpringerLuly Ozacher Work Phone: [facility] 10-04-2023 11:27-0400 Body weight 113.85 kg MANAGER HEMATOLOGYNara BlevinsLuly Ozacher Work Phone: [facility] 10-04-2023 11:27-0400 Diastolic blood pressure 80 mm[Hg] MANAGER HEMATOLOGYNara Espinosarbacher Work Phone: [facility] 10-04-2023 11:27-0400 Heart rate 85 /min MANAGER HEMATOLOGYNara Clintonacher Work Phone: [facility] 10-04-2023 11:27-0400 SaO2% (BldA) [Mass fraction] 98 % MANAGER HEMATOLOGYNara Clintonacher Work Phone: [facility] 10-04-2023 11:27-0400 Systolic blood pressure 116 mm[Hg] MANAGER HEMATOLOGYNara Mauricio Ozdanielmikey Work Phone: [facility] 09-06-2023 11:190400 Body height 175.26 cm [facility] 09-06-2023 11:190400 Body mass index (BMI) [Ratio] 38.9 kg/m2 [facility] 09-06-2023 11:040 Body weight 119.74 kg [facility] 09-06-2023 11:19-0400 Diastolic blood pressure 82 mm[Hg] [facility] 09-06-2023 11:19-0400 Heart rate 85 /min [facility] 09-06-2023 11:190400 SaO2% (BldA) [Mass fraction] 98 % [facility] 09-06-2023 11:190400 Systolic blood pressure 124 mm[Hg] [facility] 02-01-2023 04:25-0400 Diastolic blood pressure 86 mm[Hg] DO Wallace Luana Work Phone: [facility] 02-01-2023 04:25-0400 Heart rate 74 /min DO Wallace Luana Work Phone: [facility] 02-01-2023 04:25-0400 Respiratory rate 18 /min DO Wallace Luana Work Phone: [facility] 02-01-2023 04:25-0400 SaO2% (BldA) [Mass fraction] 98 % DO Wallace Luana Work Phone: [facility] 02-01-2023 04:25-0400 Systolic blood pressure 136 mm[Hg] DO Wallace Luana Work Phone: [facility] 01-31-2023 23:51-0400 Body height 175.26 cm DO Wallace Luana Work Phone: [facility] 01-31-2023 23:51-0400 Body temperature 98.5 [degF] DO Wallace Luana Work Phone: [facility] 01-31-2023 23:51-0400 Body weight 104.32 kg DO Wallace Craft Work Phone: [facility] 11-09-2022 14:50-0400 Diastolic blood pressure 64 mm[Hg] Fara López MD Work Phone: [facility] 11-09-2022 14:50-0400 Heart rate 74 /min Fara López MD Work Phone: [facility] 11-09-2022 14:50-0400 Respiratory rate 20 /min Fara López MD Work Phone: [facility] 11-09-2022 14:50-0400 SaO2% (BldA) [Mass fraction] 96 % Fara López MD Work Phone: [facility] 11-09-2022 14:50-0400 Systolic blood pressure 120 mm[Hg] Fara López MD Work Phone: [facility] [employer] 11-09-2022 14:20-0400 Body temperature 97.81 [degF] Fara López MD Work Phone: [facility] 11-09-2022 13:00-0400 Body height 175.3 cm Fara López MD Work Phone: [facility] 11-09-2022 13:00-0400 Body mass index (BMI) [Ratio] 34.7 kg/m2 Fraa López MD Work Phone: [facility] [employer] 11-09-2022 13:00-0400 Body weight 106.59 kg Fara López MD Work Phone: [facility] [employer] 11-02-2022 17:21-0400 Diastolic blood pressure 72 mm[Hg] DO Wallace Craft Work Phone: [facility] 11-02-2022 17:21-0400 Heart rate 76 /min DO Wallace Luana Work Phone: [facility] 11-02-2022 17:21-0400 Respiratory rate 18 /min DO Wallace Luana Work Phone: [facility] 11-02-2022 17:21-0400 SaO2% (BldA) [Mass fraction] 99 % DO Wallace Luana Work Phone: [facility] 11-02-2022 17:21-0400 Systolic blood pressure 130 mm[Hg] DO Wallace Luana Work Phone: [facility] 11-02-2022 13:31-0400 Body height 175.26 cm DO Wallace Luana Work Phone: [facility] 11-02-2022 13:31-0400 Body temperature 98.6 [degF] DO Wallace Luana Work Phone: [facility] 11-02-2022 13:31-0400 Body weight 111 kg DO Wallace Luana Work Phone: [facility] 10-30-2022 06:05-0400 Diastolic blood pressure 67 mm[Hg] DO Wallace Luana Work Phone: [facility] 10-30-2022 06:05-0400 Systolic blood pressure 139 mm[Hg] DO Wallace Luana Work Phone: [facility] 10-30-2022 06:02-0400 Heart rate 65 /min DO Wallace Luana Work Phone: [facility] 10-30-2022 06:02-0400 Respiratory rate 18 /min DO Wallace Luana Work Phone: [facility] 10-30-2022 06:02-0400 SaO2% (BldA) [Mass fraction] 98 % DO Wallace Luana Work Phone: [facility] 10-30-2022 02:48-0400 Body height 175.26 cm DO Wallace Craft Work Phone: [facility] 10-30-2022 02:48-0400 Body temperature 97.6 [degF] DO Wallace Craft Work Phone: [facility] 10-30-2022 02:48-0400 Body weight 106.59 kg DO Wallace Craft Work Phone: [facility] 05-18-2022 18:31-0500 Diastolic blood pressure 72 mm[Hg] [facility] 05-18-2022 18:31-0500 Heart rate 70 /min Wallace [facility] 05-18-2022 18:31-0500 Respiratory rate 16 /min Wallace [facility] 05-18-2022 18:31-0500 SaO2% (BldA) [Mass fraction] 98 % [facility] 05-18-2022 18:31-0500 Systolic blood pressure 121 mm[Hg] Wallace [facility] 05-18-2022 12:57-0500 Body height 175.2 cm Wallace [facility] 05-18-2022 12:57-0500 Body weight 118.1 kg Wallace [facility] 03-27-2022 17:10-0500 Body height 177.8 cm Azul Langford Other [employer] [facility] [employer] Other 03-27-2022 17:10-0500 Body mass index (BMI) [Ratio] 38.02 kg/m2 Azul Langford Other [employer] Other 03-27-2022 17:10-0500 Body temperature 98.3 [degF] Azul Langford Other [employer] Other 03-27-2022 17:10-0500 Body weight 120.2 kg Azul Langford Other [employer] Other 03-27-2022 17:10-0500 Respiratory rate 18 /min Azul Langford Other [employer] Other 03-27-2022 17:10-0500 SaO2% (BldA) [Mass fraction] 98 % Azul Langford Other [employer] Other 02-01-2022 11:50-0400 Diastolic blood pressure 74 mm[Hg] Karissa Leal MD Work Phone: [employer] 02-01-2022 11:50-0400 Heart rate 64 /min Karissa Leal MD Work Phone: [employer] 02-01-2022 11:50-0400 Respiratory rate 18 /min Karissa Leal MD Work Phone: [employer] 02-01-2022 11:50-0400 SaO2% (BldA) [Mass fraction] 96 % Karissa Leal MD Work Phone: [employer] 02-01-2022 11:50-0400 Systolic blood pressure 123 mm[Hg] Karissa Leal MD Work Phone: [employer] 02-01-2022 10:16-0400 Body height 175.3 cm Karissa Leal MD Work Phone: [employer] 02-01-2022 10:16-0400 Body mass index (BMI) [Ratio] 39.13 kg/m2 Karissa Leal MD Work Phone: [employer] 02-01-2022 10:16-0400 Body temperature 97.2 [degF] Karissa Leal MD Work Phone: [employer] 02-01-2022 10:16-0400 Body weight 120.2 kg Karissa Leal MD Work Phone: [employer] 12-30-2021 17:00-0400 Diastolic blood pressure 79 mm[Hg] Wallace Craft DO Work Phone: [employer] 12-30-2021 17:00-0400 Heart rate 64 /min Wallace Craft DO Work Phone: [employer] 12-30-2021 17:00-0400 SaO2% (BldA) [Mass fraction] 95 % Wallacenino Craft DO Work Phone: [employer] 12-30-2021 17:00-0400 Systolic blood pressure 135 mm[Hg] Wallace Craft DO Work Phone: [employer] 12-30-2021 13:58-0400 Respiratory rate 16 /min Wallace Craft DO Work Phone: [employer] 12-30-2021 13:07-0400 Body height 175.3 cm Wallace Craft DO Work Phone: [employer] 12-30-2021 13:07-0400 Body mass index (BMI) [Ratio] 38.4 kg/m2 Wallace Craft DO Work Phone: [employer] 12-30-2021 13:07-0400 Body temperature 98.29 [degF] Wallace Craft DO Work Phone: [employer] 12-30-2021 13:07-0400 Body weight 117.94 kg Wallace Craft DO Work Phone: [employer] 12-29-2021 11:05-0400 Diastolic blood pressure 67 mm[Hg] DO Paulie Boo Work Phone: [facility] 12-29-2021 11:05-0400 Heart rate 69 /min DO Paulie Boo Work Phone: [facility] 12-29-2021 11:05-0400 Respiratory rate 18 /min DO Paulie Boo Work Phone: [facility] 12-29-2021 11:05-0400 SaO2% (BldA) [Mass fraction] 97 % DO Paulie Boo Work Phone: [facility] 12-29-2021 11:05-0400 Systolic blood pressure 116 mm[Hg] DO Paulie Boo Work Phone: [facility] 12-29-2021 08:27-0400 Body height 173.99 cm DO Paulie Boo Work Phone: [facility] 12-29-2021 08:27-0400 Body weight 128 kg DO Paulie Boo Work Phone: [facility] 12-29-2021 08:25-0400 Body temperature 98.1 [degF] DO Paulie Boo Work Phone: [facility] 10-19-2021 10:15-0400 Body height 177.8 cm Paulie Boo Other [employer] Other 10-19-2021 10:15-0400 Body mass index (BMI) [Ratio] 39.77 kg/m2 Paulie Boo Other [employer] Other 10-19-2021 10:15-0400 Body weight 125.74 kg Paulie Rajeev Other [employer] Other 10-19-2021 10:15-0400 Diastolic blood pressure 88 mm[Hg] Paulie Boo Other [employer] Other 10-19-2021 10:15-0400 Respiratory rate 18 /min Paulie Rajeev Other [employer] Other 10-19-2021 10:15-0400 SaO2% (BldA) [Mass fraction] 98 % Paulie Rajeev Other [employer] Other 10-19-2021 10:15-0400 Systolic blood pressure 132 mm[Hg] Paulieglen Boo Other [employer] Other 09-07-2021 10:00-0400 Body height 177.8 cm Paulie Rajeev Other [employer] Other 09-07-2021 10:00-0400 Body mass index (BMI) [Ratio] 40.39 kg/m2 Paulie Boo Other [employer] Other 09-07-2021 10:00-0400 Body temperature 98.1 [degF] Paulie Rajeev Other [employer] Other 09-07-2021 10:00-0400 Body weight 127.69 kg Paulie Rajeev Other [employer] Other 09-07-2021 10:00-0400 Diastolic blood pressure 84 mm[Hg] Paulieglen Boo Other [employer] Other 09-07-2021 10:00-0400 Respiratory rate 18 /min Paulieglen Boo Other [employer] Other 09-07-2021 10:00-0400 SaO2% (BldA) [Mass fraction] 96 % Paulie Boo Other [employer] Other 09-07-2021 10:00-0400 Systolic blood pressure 124 mm[Hg] Paulie Boo Other [employer] Other 03-28-2021 14:30-0500 Body height 177.8 cm Sam Olexa Other [employer] Other 03-28-2021 14:30-0500 Body mass index (BMI) [Ratio] 38.02 kg/m2 Sam Olexa Other [employer] Other 03-28-2021 14:30-0500 Body weight 120.2 kg Sam Olexa Other [employer] Other 02-22-2021 12:15-0400 Body height 177.8 cm Sam Olexa Other [employer] Other 02-22-2021 12:15-0400 Body mass index (BMI) [Ratio] 38.02 kg/m2 Sam Olexa Other [employer] Other 02-22-2021 12:15-0400 Body weight 120.2 kg Sam Olexa Other [employer] Other 02-22-2021 12:15-0400 Respiratory rate 18 /min Sam Olexa Other [employer] Other 02-22-2021 12:15-0400 SaO2% (BldA) [Mass fraction] 98 % Sam Olexa Other [employer] Other 01-25-2021 09:45-0400 Body height 177.8 cm Sam Olexa Other [employer] Other 01-25-2021 09:45-0400 Body mass index (BMI) [Ratio] 38.02 kg/m2 Sam Sheriff Other [employer] Other 01-25-2021 09:45-0400 Body weight 120.2 kg Sam Sheriff Other [employer] Other 05-21-2019 12:05-0500 BP Diastolic 84 mm[Hg] [facility] 05-21-2019 12:05-0500 BP Systolic 137 mm[Hg] [facility] 05-21-2019 12:05-0500 Pulse (Heart Rate) 78 /min [facility] 05-21-2019 12:05-0500 Pulse Oximetry 96 % [facility] 05-21-2019 12:05-0500 Respiratory Rate 18 /min [facility] 05-21-2019 11:02-0500 BMI (Body Mass Index) 39.9 kg/m2 [facility] 05-21-2019 11:02-0500 Body Temperature 98.3 [degF] [facility] 05-21-2019 11:02-0500 Body weight 122.46 kg [facility] 05-21-2019 11:02-0500 Height 175.26 cm [facility] 04-09-2019 11:53-0500 BP Diastolic 74 mm[Hg] [facility] 04-09-2019 11:53-0500 BP Systolic 112 mm[Hg] [facility] 04-09-2019 11:53-0500 Pulse (Heart Rate) 70 /min [facility] 04-09-2019 11:53-0500 Pulse Oximetry 98 % [facility] 04-09-2019 11:53-0500 Respiratory Rate 18 /min [facility] 04-09-2019 10:11-0500 BMI (Body Mass Index) 38.7 kg/m2 [facility] 04-09-2019 10:11-0500 Body Temperature 98.8 [degF] [facility] 04-09-2019 10:11-0500 Body weight 122.47 kg [facility] 04-09-2019 10:11-0500 Height 177.8 cm [facility] Encounters Encounter Date Encounter Type Care Provider Facility Start: 10-23-2023 End: 10-23-2023 Emergency department patient visit MANAGER HEMATOLOGYNara Mauricio Clarice Work Phone: [facility] Work Phone: Start: 10-04-2023 End: 10-04-2023 ambulatory MANAGER HEMATOLOGY Luly Clarice Work Phone: [facility] Work Phone: Start: 10-04-2023 End: 10-04-2023 Patient encounter procedure CHRISTA Lulyfabrizio Oneil Work Phone: [facility] Work Phone: Start: 09-07-2023 End: 09-07-2023 Patient encounter procedure MANAGER HEMATOLOGY Luly Clarice Work Phone: [facility] [place] Work Phone: Start: 09-07-2023 End: 09-07-2023 ambulatory MANAGER HEMATOLOGY Lulyfabrizio Oneil Work Phone: [facility] Work Phone: Start: 09-06-2023 End: 09-06-2023 ambulatory [facility] Work Phone: Start: 09-06-2023 End: 09-06-2023 Patient encounter procedure [facility] Work Phone: Start: 04-12-2023 [facility] Start: 04-04-2023 ambulatory [facility] Start: 03-31-2023 End: 03-31-2023 Emergency department patient visit [facility] Start: 01-31-2023 End: 02-01-2023 Emergency department patient visit DO Wallace Tseeth Work Phone: [facility] Work Phone: Start: 11-09-2022 End: 11-09-2022 ambulatory FARA Mónica [facility] Start: 11-09-2022 End: 11-09-2022 Subsequent hospital visit by physician Fara López MD Work Phone: [facility] [place] Start: 11-02-2022 End: 11-02-2022 Emergency department patient visit DO Wallace Tseeth Work Phone: [facility] Work Phone: Start: 10-30-2022 End: 10-30-2022 Emergency department patient visit DO Wallace Tseeth Work Phone: [facility] Work Phone: Start: 10-23-2022 End: 10-23-2022 [facility] Start: 10-10-2022 End: 10-13-2022 ambulatory [facility] Start: 10-06-2022 End: 10-09-2022 Evaluation and management of inpatient [facility] Start: 06-15-2022 ambulatory [facility] Start: 05-18-2022 End: 05-18-2022 Emergency department patient visit [facility] 10 Start: 05-18-2022 ambulatory [facility] Start: 04-13-2022 ambulatory [facility] Start: 03-27-2022 End: 03-27-2022 ambulatory Azul Langford Other [employer] Other Start: 03-27-2022 Office outpatient visit 15 minutes Azul Langford [facility] [address] Start: 02-01-2022 End: 02-01-2022 Subsequent hospital visit by physician Brock Leal MD Work Phone: [facility] [place] Comment on above: Colon cancer screeni ng Start: 12-30-2021 End: 12-30-2021 Emergency department patient visit Wallace Craft DO Work Phone: [facility] Comment on above: Flank pain (Primary Dx) Start: 12-29-2021 End: 12-29-2021 Emergency department patient visit DO Paulie Boo Work Phone: [facility] Start: 10-19-2021 End: 10-19-2021 ambulatory Paulie Rebolledomer Other [employer] Other Start: 10-19-2021 Office outpatient visit 25 minutes Paulie Boo [facility] Start: 10-13-2021 End: 10-13-2021 Patient encounter procedure DO Paulie Boo Work Phone: [facility] [place] Start: 09-07-2021 End: 09-07-2021 ambulatory Paulie Boo Other [employer] Other Start: 09-07-2021 Office outpatient visit 25 minutes Paulie Boo [facility] Start: 04-18-2021 End: 04-18-2021 ambulatory Sam Olexa Other [employer] Other Start: 04-18-2021 Telephone encounter Sam Olexa [facility] Start: 03-30-2021 End: 03-30-2021 ambulatory Sam Olexa Other [employer] Other Start: 03-30-2021 Telephone encounter Sam Olexa [facility] Start: 03-28-2021 End: 03-28-2021 ambulatory Sam Sheriff Other [facility] [employer] Other Start: 03-28-2021 Office outpatient visit 25 minutes Sam Olexa [facility] Start: 02-22-2021 Office outpatient visit 15 minutes Sam Olexa [facility] Start: 02-03-2021 Telephone encounter Sam Olexa [facility] Start: 02-01-2021 Office outpatient visit 15 minutes Sam Olexa [facility] Start: 01-31-2021 Telephone encounter Sam Olexa [facility] Start: 01-25-2021 Office outpatient visit 25 minutes Sam Olexa [facility] Start: 05-21-2019 End: 05-21-2019 Admission to day surgery [facility] Start: 04-09-2019 End: 04-09-2019 Admission to day surgery [facility] Start: 01-01-2019 End: 01-01-2019 Patient encounter procedure DOCTOR MIS Facility: Start: 12-26-2018 End: 12-26-2018 Patient encounter procedure [facility] Facility: Start: 07-31-2018 End: 07-31-2018 Admission to day surgery [facility] Start: 10-15-2017 End: 10-16-2017 Ambulatory Miller Seymour Facility:[id number] Start: 08-18-2017 End: 08-18-2017 Emergency department patient visit Maddy Titus Amaury [facility] Procedures Date Procedure Procedure Detail Performing Clinician Start: 11-02-2022 CT of abdomen and pe lvis without contrast DO Wallace Luana Work Phone: Start: 10-30-2022 Urine culture DO Vanessa e Luana Work Phone: Start: 10-30-2022 CT of abdomen and pe lvis without contrast DO Wallace Luana Work Phone: Start: 02-01-2022 SCANNED COLONOSCOPY REPORT Brock Leal MD Work Phone: Start: 02-01-2022 Colonoscopy Elisa segal MD Work Phone: Start: 12-30-2021 Ct abdomen & pelvis w/contrast material Krysten Saeed PA-C Work Phone: Start: 12-30-2021 Comprehensive metabo lic panel Krysten Saeed PA-C Work Phone: Start: 12-30-2021 Drug tst prsmv instr mnt chem analyzers pr date Krysten Saeed PA-C Work Phone: Start: 12-30-2021 Urnls dip stick/tabl et rgnt auto w/o microscopy Krysten Saeed PA-C Work Phone: Start: 12-29-2021 CT of abdomen and pe lvis without contrast DO Paulie Boo Work Phone: Start: 05-21-2019 Injection of sacroil iac joint Miller Bunn Start: 04-09-2019 Local anesthetic fac et joint nerve block Miller Bunn Plan of Treatment Date Care Activity Detail Author Start: 02-02-2032 Screening for malign ant neoplasm of colon [facility] Start: 11-12-2030 DTaP/Tdap/Td vaccine (2 - Td or Tdap) DTaP/Tdap/Td vaccine (2 - Td or Tdap) [facility] Start: 02-01-2027 Screening for malign ant neoplasm of colon [facility] Start: 10-23-2023 CT Abdomen and Pelvi s WO contrast [facility] Start: 10-23-2023 CT of abdomen and pe lvis without contrast CT abdomen pelvis wo con [facility] Start: 09-07-2023 [facility] Start: 07-15-2023 Depression Monitoring Depression Mon itoring [facility] Start: 02-08-2023 End: 02-08-2023 Patient encounter procedure 02/08/2023 Office Visit Urology Fara López MD [address] [facility] [[email or web address] [address] [place] [id number] [facility] Start: 02-01-2023 Bacteria identified in Blood by Culture [facility] Start: 02-01-2023 CT Abdomen and Pelvi s WO contrast [facility] Start: 02-01-2023 CT of abdomen and pe lvis without contrast CT abdomen pelvis wo [facility] Start: 01-25-2023 End: 01-25-2023 Patient encounter procedure 01/25/2023 Office Visit Family Medicine Gladys Cortez, MANAGER HEMATOLOGY - NAVIGATING OFFICER [address] [place] [address] [facility] Start: 12-22-2022 Depression Monitoring Depression Mon itoring [facility] Start: 12-22-2022 Depression Screen Depression Screen [facility] Start: 11-28-2022 Influenza vaccination Flu vaccine (# 1) [facility] Start: 11-09-2022 End: 11-09-2022 Cysto w/simple removal stone & stent CYSTOSCOPY STENT REMOVAL Kidney stone 11/09/2022 2:04 PM EDT [facility] Start: 11-02-2022 Bacteria identified in Urine by Culture [facility] Start: 10-30-2022 Bacteria identified in Urine by Culture Urine Culture [facility] Start: 10-30-2022 CT Abdomen and Pelvi s WO contrast [facility] Start: 10-30-2022 CT of abdomen and pe lvis without contrast CT abdomen pelvis wo [facility] Start: 05-18-2022 End: 05-19-2023 fentaNYL Injectable 50 microgram IntraVenous Push Once ; (SUBLIMAZE)DOSE = 50 microgram(s) IntraVenous Push Once, PRN Pain - Severe (7-10) Start: 18-May-2022 End: 18-May-2023 Ordered: 18-May-2022 Marissa Powell [facility] Start: 02-06-2022 End: 02-06-2022 Patient encounter procedure 02/06/2022 Office Visit Family Medicine Wallace Craft DO [address] [place], [place] [id number] [facility] Start: 02-01-2022 End: 02-01-2022 Admission to same day surgery center 02/01/2022 Surgery Endoscopy Brock Leal MD [address] [place] [address] COLORECTAL CANCER SCREENING, NOT HIGH RISK [facility] [place] Comment on above: COLORECTAL CANCER SC REENING, NOT HIGH RISK Start: 02-01-2022 End: 02-01-2022 Colon ca scrn not hi rsk ind [facility] Start: 02-01-2022 Subsequent hospital visit by physician 02/01/2022 Hospital Encounter Endoscopy Brock Leal MD [address] [facility] [place] [address] [facility] [place] Start: 01-06-2022 End: 01-06-2022 Patient encounter procedure 01/06/2022 Office Visit Family Medicine Wallace Craft DO [address] [facility] [address] [place], [place] [id number] [email or web address] Start: 12-29-2021 Influenza vaccination Flu vaccine (# 1) [facility] Start: 11-28-2021 Influenza vaccination Flu vaccine (# 1) [facility] Start: 05-16-2021 COVID-19 Vaccine (6 - Booster for Moderna series) COVID-19 Vaccine (6 - Booster for Moderna series) [facility] Start: 08-24-2019 Screening for malign ant neoplasm of colon [facility] [employer] Start: 2014 Lipid panel Lipids [facility] [employer] Start: 1992 Hepatitis C screening Hepatitis C sc reen [facility] Start: 1989 HIV screening HIV screen [facility] [employer] Bacteria identified in Blood by Culture [facility] Comprehensive metabo lic 2000 panel - Serum or Plasma [facility] End: 11-09-2022 Glucose [Mass/volume] in Serum or Plasma POCT Glucose Point of Care Testing Routine One Time for 1 Occurrences starting 11/09/2022 until 11/09/2022 [facility] Comment on above: One Time for 1 Occur rences starting 11/09/2022 until 11/09/2022 End: 02-01-2022 INITIATE PACU OXYGEN THERAPY PROTOCOL Initiate PACU Oxygen Therapy Protocol Respiratory Care Routine Continuous until discontinued starting 02/01/2022 [employer] Phone: Comment on above: Continuous until dis continued starting 02/01/2022 End: 11-09-2022 INITIATE PACU OXYGEN THERAPY PROTOCOL Initiate PACU Oxygen Therapy Protocol Respiratory Care Routine Continuous until discontinued starting 11/09/2022 [employer] Phone: Comment on above: Continuous until dis continued starting 11/09/2022 Oxygen therapy [Mini mum Data Set] Initiate Oxygen Therapy Protocol Respiratory Care Routine As Needed until discontinued starting 11/09/2022 [employer] Comment on above: As Needed until disc ontinued starting 11/09/2022 Oxygen therapy [Mini mum Data Set] Initiate Oxygen Therapy Protocol Respiratory Care Routine As Needed until discontinued starting 11/09/2022 [employer] Comment on above: As Needed until disc ontinued starting 11/09/2022 Patient Education [facility] Patient referral [facility] End: 12-30-2021 POCT CREATININE POCT CREATININE Point of Care Testing Routine One Time for 1 Occurrences starting 12/30/2021 until 12/30/2021 [employer] Phone: Comment on above: One Time for 1 Occur rences starting 12/30/2021 until 12/30/2021 Spirometry panel Incentive arabella metry Respiratory Care Routine Every 2hr while awake until discontinued starting 11/09/2022 [employer] Comment on above: Every 2hr while awak e until discontinued starting 11/09/2022 Surgical Pathology Surgical Path ology Lab Routine Colon cancer screening Release Upon Ordering for 1 Occurrences starting 02/01/2022 [employer] Phone: Comment on above: Release Upon Orderin g for 1 Occurrences starting 02/01/2022 Testosterone Free [Mass/volume] in Serum or Plasma [facility] Immunizations Immunization Date Immunization Notes Care Provider Fa edna 02-16-2022 Influenza, injectabl e, Madin Chrissy Canine Kidney, preservative free, quadrivalent Fara López MD Work Phone: [facility] 03-21-2021 COVID-19, PFIZER PURPLE top, DILUTE for use, (age 12 y+), 30mcg/0.3mL Fara López MD Work Phone: [facility] 02-01-2021 Kenalog -40 mg Sam Olexa Other [employer] Other 01-14-2021 influenza, injectabl e, quadrivalent, preservative free Fara López MD Work Phone: [facility] 01-14-2021 influenza, seasonal, injectable Paulie Rajeev Other [facility] 11-12-2020 tetanus toxoid, reduced diphtheria toxoid, and acellular pertussis vaccine, adsorbed Fara López MD Work Phone: [facility] 05-26-2020 COVID-19 Vaccine Moderna - Documentation Purposes Only Paulie Rajeev Other [employer] Other 04-28-2020 COVID-19 Vaccine Moderna - Documentation Purposes Only Paulie Rajeev Other [facility] 02-03-2020 influenza, injectabl e, quadrivalent, preservative free Fara López MD Work Phone: [facility] 03-17-2019 Kenalog -40 mg Sam Olexa Other [employer] Other 01-06-2019 Influenza, injectabl e, Madin Chrissy Canine Kidney, preservative free, quadrivalent Fara López MD Work Phone: [facility] 12-26-2017 influenza, injectabl e, quadrivalent, preservative free Fara López MD Work Phone: [facility] 02-14-2017 Influenza, injectabl e, Madin Chrissy Canine Kidney, preservative free, quadrivalent Fara López MD Work Phone: [facility] 01-20-2016 seasonal influenza, intradermal, preservative free Fara López MD Work Phone: [facility] 03-30-2014 KENALOG - 10 mg Sam Olexa Other [facility] [employer] Other 09-24-2009 tetanus toxoid, reduced diphtheria toxoid, and acellular pertussis vaccine, adsorbed Sam Olexa Other [facility] 02-19-2008 influenza virus vaccine, unspecified formulation Fara López MD Work Phone: [facility] 02-19-2008 influenza, seasonal, injectable MANAGER HEMATOLOGY Luly Oneil Work Phone: [facility] 05-10-2004 TD(adult) unspecifie d formulation Fara López MD Work Phone: [facility] 03-08-1999 hepatitis B vaccine, adult dosage Fara López MD Work Phone: [facility] 03-08-1999 influenza virus vaccine, whole virus Fara López MD Work Phone: [facility] 08-31-1998 hepatitis B vaccine, adult dosage Fara López MD Work Phone: [facility] 07-27-1998 hepatitis B vaccine, adult dosage Fara López MD Work Phone: [facility] Payers Date Payer Category Payer Unknown [id number] 2023 Self-pay [id number] 2021 Unknown [id number] 2021 [employer] Blue [facility] [id number] 2017 Unknown 1974 Unknown [id number] 2.16.84 [id number] 1974 Unknown [id number] 2.16.84 [id number] 1974 Unknown [id number] 2.16.8 [id number] 1974 Unknown [id number] 2.16.8 [id number] 1974 Unknown [id number] 2.16.8 [id number] 1974 Unknown [id number] 2.16.8 [id number] 1974 Unknown [id number] 2.16.8 [id number] 1974 Unknown [id number] 2.16.8 [id number] 1974 Unknown [id number] 2.16.8 [id number] 1974 Unknown [id number] 2.16.8 [id number] 1974 Unknown [id number] 2.16.8 [id number] 1974 Unknown [id number] 2.16.84 [id number] 1974 Unknown [id number] 2.16.84 [id number] 1959 Unknown [id number] Unknown [id number] Unknown [id number] 2.16.8 [id number] Unknown [id number] 2. [id number] Unknown [id number] 2.16.8 [id number] Unknown [id number] 2.16.8 [id number] Unknown [id number] 2.16.8 [id number] Social History Date Type Detail Facility Start: 05-21-2019 End: 10-23-2023 Tobacco smoking status FLIS Never smoked tobacco (finding) [employer] Start: 1975 Sex Assigned At Male [facility] Sex Assigned At Sex Assigned At [facility] Other Start: 12-22-2021 Tobacco use and exposure Smokeless tobacco non-user [employer] Phone: Start: 12-30-2021 End: 11-09-2022 Alcohol intake Current drinker of alcohol (finding) [employer] Phone: Start: 09-17-2014 History SDOH Alcohol Comment RARE [employer] Phone: Start: 12-21-2021 End: 07-14-2022 History SDOH Physical Activity DPW 5 [employer] Phone: Start: 12-21-2021 End: 07-14-2022 History SDOH Physical Activity MPS 1 [employer] Phone: Start: 12-21-2021 End: 07-14-2022 History SDOH IPV Fear 2 [employer] Phone: Start: 1975 Sex Assigned At Not on file [employer] Phone: Start: 12-20-2021 End: 02-01-2022 Exposure to SARS-CoV-2 (event) Not sure [facility] [employer] Work Phone: Tobacco smoking consumption unknown [facility] Start: 02-01-2023 Tobacco smoking status NHIS Ex-smoker (finding) [facility] NEGATED: Highlighted rowStart: NINF History of tobacco use Passive smoker [facility] Work Phone: Medical Equipment Procedure Code Equipment Code Equipment Origin al Text Equipment Identifier Dates Arthroscopy, shoulder Tendon/ligament bone anchor, non-bioabsorbable [id number] FDA Start: 04-20-2021 Stent Uret 6fr L26cm Polymer Blend Ph Free Coat Gradual Tapr - [id number] Start: 10-06-2022 Goals Date Patient Goal Desired Activity /State Clinical Notes 09-14-2020 to 11-09-2022 Lina Hung RN - 11/09/2022 2:52 PM EDTDischarge Instructions Note Date & Type Note Facility 11-09-2022 History of Presen t illness Narrative Disch inst given with presc verb understanding at side up to bathroom voided QS pink tinged urine. documented in this encounter [facility] 11-09-2022 Hospital Discharg e instructions Lina Hung RN - 11/09/2022 2:21 PM EDT Images from the original note were not included. Care order/instruction [[id number]] (Order #: [id number]) Reprint Requisition Care order/instruction (Order #[id number]) on 11/09/22 Additional Referral Information Referral Priority [...] Click to Print Result Care order/instruction Order: [id number] Status: Active Visible to patient: No (not released) Next appt: 01/25/2023 at 09:00 AM in Family Medicine (Gladys Cortez, MANAGER HEMATOLOGY - [facility]) 0 Result Notes Order Details View Encounter Lab and Collection Details Routing Result History View Encounter Conversation Result Care Coordination Patient Communication Not Released Not seen Back to Top Reprint Requisition to Label Paper Care order/instruction (Order #[id number]) on 11/09/22 documented in this encounter [facility] 10-06-2022 [place] [address] CONSULTATION PATIENT NAME: CARMELITA EASTMAN : 1975 MED REC NO: [id number] ROOM: ACCOUNT NO: [id number] ADMIT DATE: 10/06/2022 PROVIDER: Fara López MD CONSULT DATE: 10/06/2022 INPATIENT CONSULTATION PERSON REQUESTING CONSULT: Yamilex Almodovar MD REASON FOR CONSULTATION: Left proximal ureteral [...] for sequential compress (more content not included)... [facility] 03-27-2022 Evaluation note Encounter Date [...] was printed, Acute bronchitis material was printed [facility] Other 10-05-2022 Hospital Discharge instructions* Discharge Instructions* [...] sent through Care Everywhere. * Colonoscopy: Post-op (Irish) * Colon Polyps (Irish) * Diverticulosis (Irish) * Coronavirus Disease (COVID-19): General Info (Irish) documented in this encounterBON [employer] Phone: [phone] 126-912506-22-2022 Evaluation note* Encounter Date Diagnosis Assessment Notes [...] Sep, Medication monitoring encounter (ICD-10 - Z51.81) [facility] Other 05-11-2022 Evaluation note* Encounter Date Diagnosis [...] August, Medication monitoring encounter (ICD-10 - Z51.81) [facility] Other 01-04-2022 NotePatient Education Materials [facility]s: [facility]63[facility]6667 Evaluation note* Encounter Date Diagnosis Assessment Notes Treatment Notes Treatment Clinical Notes Mar, Other specified postprocedural states (ICD-10 - Z98.890) [facility] Other 12-02-2021 NotePatient Education Materials Follows: [facility] HospitalUuufkbjz93-06-0169 Evaluation note* Encounter Date Diagnosis Assessment Notes Treatment Notes Treatment Clinical Notes Feb, Strain of unspecified muscles, fascia and tendons at forearm level, right arm, initial encounter (ICD-10 - S56.911A) Feb, Superior labrum eiggkcct-ov-barels ior (SLAP) tear of right shoulder (ICD-10 [...] of infection, hardware pullout, cuff repair failure, 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 Continue gentle motion/strengthe annmarie. Call with questions/concer ns. If he is not progressing we will need to consider diagnostic arthroscopy and potential repairs as necessary. Unable to obtain adequate information since we are unable to obtain MRI. Jan, Other CONTINUE OFF WORK [facility] Other 10-05-2021 Evaluation note* Encounter Date Diagnosis [...] left forearm, initial encounter (ICD-10 - S50.12XA) [facility] Other 09-28-2021 Evaluation note* Encounter Date Diagnosis [...] left forearm, initial encounter (ICD-10 - S50.12XA) [facility] Other 09-22-2021 NotePatient Education Materials Follows: [facility] HospitalUxhfwazk09-33-0583 Note [id number]#1.00[facility]08-25-2021 NotePatient Education Materials Follows:[facility] HospitalXaawpqjr68-07-4750 NotePatient Education Materials Follows:[facility] HospitalKonptcvh60-61-3769 NotePatient Education Materials Follows:[facility] HospitalLibxxgkq94-24-4584 NotePatient Education Materials Follows:[facility] HospitalAekizcli68-87-1274 NoteEducation Materials Elastic Bandage and RICE Therapy [...] limityour activities and whether you should start comkd-jf-hsytau exercises for your injury. Ice Ice your [...] provider. Document Revised: 01/04/2018 Document Reviewed: 01/04/2018 [employer] Patient Education ? 2019 [employer]. Dermatology Abrasion An abrasion is a cut [...] bleeding, or it may (more content not included)...[facility] HospitalQnrmlfcc93-63-7188 [id number]#1.00[facility]2020 [facility] SURGERY Clinical Discharge Summary PERSON INFORMATION Name CARMELITA EASTMAN Age 45 Years 1975 Sex MALE Language Irish PCP Misbah Donahue Marital Status Med Service Pain Management Surgery N 17-11-06 Acct# Arrival 10/27/2020 09:18:00 Visit Reason low back pain Acuity LOS 028 20:12 Address: [facility] [place] [id number] Comment: PROVIDER INFORMATION VITALS INFORMATION Vital Sign [...] Chronic back pain; Lumbar spondylosis Comment: PHYS [facility]06-30-2021 NotePatient: CARMELITA EASTMAN Age: 45 years [...] recorded. Procedure history: Facet joint nerve block ([id number]) on 10/27/2020 at 45 Years. Comments: 10/27/2020 9:10 Araseli Lord BILATERAL LUMBAR MEDIAL BRANCH BLOCK T12,L1,L2,L3 Epidural steroid injection ([id number]) on 09/15/2020 at 45 Years. Comments: 09/15/2020 10:13 Araseli Lord CAUDAL EPIDURAL STEROID INJECTION Stimulator, device ([id number]) on 04/30/2014 at 38 Years. Comments: 09/22/2020 9:08 Swapna Goodwin stimulator low back placed 2015 Fusion of L4,L5,S1 fused ([id number]) on 04/30/2007 at 31 Years. Cage ([id number]). Comments: 09/22/2020 9:08 Swapna Goodwin bilateral fused [...] 27 10:19) Resp Rate 20 br/min (OCT 27:) SBP 120 mmHg (OCT 27:) DBP 77 mmHg (OCT 27:) Weight 125.70 kg (OCT 27:) Height 175.26 cm (OCT 27:) , Measurements from flowsheet : Measurements 10/27/2020 10:19 EDT Height 175.260 cm Height/Length Dosing 175.260 cm Weight 125.700 kg Weight Dosing 125.700 kg Body Mass Index 40.920 kg/m2 General: Alert and oriented. Eye: Pupils are equal, round and reactive to light. HENT: Normocephalic. Neck: Supple. Respiratory: Lungs are clear to auscultation. Cardiovascular: Normal rate. Gastrointestinal: Soft, Non-tender, Non-distended. Integumentary: Warm, Dry, Veyo. Neurologic: Alert, Oriented. Psychiatric: Cooperative. Impression and Plan Low Back Pain Lumbar Spondylosis Procedure explained to patient along with risks of possible complications and patient wishes to proceed. [Electronically Signed on: 10/27/2020 10:34 EDT] Juan Carlos Owusu MD [Verified on: 10/27/2020 10:34 EDT] [facility] Note [id number]#1.00[facility]05-21-2021 [id number]#1.00[facility] 09-15-2020 [facility] SURGERY Clinical Discharge Summary PERSON INFORMATION Name CARMELITA EASTMAN Age 45 Years 1975 Sex MALE Language Irish PCP Misbah Donahue Marital Status Med Service Pain Management Surgery Acct# Arrival 09/15/2020 08:10:15 Visit Reason low back pain Acuity LOS 012 19:37 Address: [address] [place] [id number] Comment: PROVIDER INFORMATION VITALS INFORMATION Vital Sign [...] Low back pain; Lumbar neuritis Comment: PHYS [facility]05-18-2021 Note [id number] The patient has been examined and the medical record reviewed. The indications for surgery and examare unchanged. [Electronically Signed on: 09/15/2020 09:45 EDT] Juan Carlos Owusu MD [Verified on: 09/15/2020 09:45 EDT] Juan Carlos Owusu MD [Transcribed on: 09/14/2020 12:47 EDT] [facility] noteNo InformationNowestern [facility] [employer] Other Evaluation note* Diagnosis Flank pain- Primary Abdominal pain, unspecified site Colon cancer screening Special screening for malignant neoplasms, colon documented in this encounter [facility] Work Phone: evaluation noteNo assessment information available [facility] Work Phone: Evaluation note* Diagnosis Colon cancer screening Special screening for malignant neoplasms, colon documented in this encounter [facility] Work Phone: evaluation note* Diagnosis Kidney stone- Primary Calculus of kidney documented in this encounter [facility] CENTERAllozyneOHIOHEALTH GRADY MEMORIAL HOSPITALEvSnohomish County PUDwilmington hospital note* Diagnosis Onset Date Resolution Status Low testosterone in male acu te Screening for deficiency anemia acute Screening for lipid disorders acute Screening for metabolic disorder acute [facility] Work Phone: Evaluation note* Diagnosis Onset Date Resolution Status Hypogonadism acute Kidney stones acute Low testosterone in male acu te Screening for deficiency anemia acute Screening for lipid disorders acute Screening for metabolic disorder acute [facility] Work Phone: Evaluation note* Diagnosis Onset Date Resolution Status Hypogonadism acute Kidney stones acute Low testosterone in male acu te Screening for deficiency anemia acute Screening for lipid disorders acute Screening for metabolic disorder acute BMI 37.0-37.9, adult acute Hypogonadism in male acute Obese acute [facility] Work Phone: Hiscbgc general Narrative - Reported* Type Description Date [...] with a cage 2010 Surgical History SCS ([employer]) REPROGRAMMED JAN [id number] Surgical History DOUBLE SI [...] poisoning 02/2019 Hospitalization History see surgical hx [facility] Other History general Narrative - Reported* Type [...] removal 01/16 Surgical History spinal cord stimulator 2016 Hospitalization History kidney stones 04/2018 Hospitalization History Food poisoning 02/2019 Hospitalization History see surgical hx [facility] Other Hospital Discharge instructions* Attachments The following attachments cannot be sent through Care Everywhere. * Flank Pain (Irish) [facility] Work Phone: Hospital Discharge instructions Additional [...] need to follow-up with the urologist in [place].[facility] Work Phone: Hospital Discharge instructions Additional Instructions Take oxybutynin as instructed Complete the dose of your Levaquin Percocets for severe pain You cannot work or drive when taking Percocet Tylenol or Motrin for minor pain Follow-up with Dr. Durand who placed the stent Return here if you develop any fever, chills, increased pain or any other concernPaulding [facility] Hospital Work Phone: Hospital Discharge instructions Additional Instructions Thankfully there is no sign of a kidney stone or of an infection today. Your pain seems to be from your back. I have prescribed some medicine for you. Follow-up with your doctor. 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 ACP-Advance Directive 02/02/2022 10:10 AM [...] lt side pain Chief Complaint Abd Pain Chief Complaint establish Reason for Visit Low testosterone in male Screening for deficiency anemia Screening for lipid disorders Screening for metabolic disorder Chief Complaint establish Z13.228;R79.89;Z13.0 Reason for Visit Low testosterone in male Screening for deficiency anemia Screening for lipid disorders Screening for metabolic disorder Chief Complaint establish Z13.228;R79.89;Z13.0 1 month check up Reason for Visit Hypogonadism Kidney stones Low testosterone in male Screening for deficiency anemia Screening for lipid disorders Screening for metabolic disorder Chief Complaint establish Z13.228;R79.89;Z13.0 1 month check up R flank pain, hx kidney stones Reason for Visit Hypogonadism Kidney stones Low testosterone in male Screening for deficiency anemia Screening for lipid disorders Screening for metabolic disorder BMI 37.0-37.9, adult Hypogonadism in male Obese Assessments No Assessments Information AvailableNo Assessments Information AvailableNo Assessments Information Available Additional Source Comments (unrecognized sect ion and content) No Status Records FoundNo Status Records FoundNo Status Records FoundNo Status Records FoundNo Status Records FoundNo Status Records FoundNo Status Records FoundNo Status Records FoundNo Status Records Found INFORMATION SOURCE (unrecogn ized section and content) DATE CREATED AUTHOR 10/18/2017 [facility] DATE CREATED AUTHOR AUTHOR'S ORGANIZ ATION 01/03/2019 [facility] DATE CREATED AUTHOR AUTHOR'S ORGANIZ ATION 11/20/2019 [facility] DATE CREATED AUTHOR AUTHOR'S ORGANIZ ATION 05/07/2021 [facility] DATE CREATED AUTHOR AUTHOR'S ORGANIZ ATION 05/24/2022 [facility] DATE CREATED AUTHOR AUTHOR'S ORGANIZ ATION 04/02/2023 [facility] edical Center DATE CREATED AUTHOR AUTHOR'S ORGANIZ ATION 04/16/2023 [facility] ulatory DATE CREATED AUTHOR AUTHOR'S ORGANIZ ATION [facility]/2023 [facility] DATE CREATED AUTHOR AUTHOR'S ORGANIZ ATION 11/15/2023 [facility] REASON FOR VISIT (unrecogniz ed section and content) Reason Comments Abdominal Pain Pt c/o mid abd pain that goes to rt flank, hx. kidney stones Specialty Diagnoses / Procedures Referred By Carmen curry Referred To Contact Diagnoses Colon cancer screening Colon cancer screening [Z12.11] Procedures IL COLON CA SCRN NOT HI RSK IND IL COLONOSCOPY FLX DX W/COLLJ SPEC WHEN PFRMD IL COLSC FLX W/RMVL OF TUMOR POLYP LESION SNARE TQ IL COLONOSCOPY W/BIOPSY SINGLE/MULTIPLE COLORECTAL CANCER SCREENING, NOT HIGH RISK Brock Leal MD [address] [place] [address] [facility] [id number] [place] [address] Referral ID Status Reason Start Date Expiration Date Visits Re quested Visits Authorized [id number] 1 1 Specialty Diagnoses / Procedures Referred By Carmen curry Referred To Contact Diagnoses Kidney stone Kidney stone [N20.0] Procedures IL CYSTO W/SIMPLE REMOVAL STONE & STENT IL CYSTO W/SIMPLE REMOVAL STONE & STENT FLEXIBLE CYSTOSCOPY, LEFT DOUBLE J STENT REMOVAL / MAC / RECENT LABS DONE AT [facility] 11-02-22 (IN [place]) Fara López MD [address] [address] [facility] [id number] [place] [address] Referral ID Status Reason Start Date Expiration Date Visits Re quested Visits Authorized [id number] 1 1 Scheduled Active and Recently Administ [...] mL IVPB (mini-bag) (COMPLETED) 1,000 mg, IntraVENous, DIRECTOR PROCESS TO O.R., 1 dose, On Bridget 11/09/22 [...] Sam Mccoy Jr, MD Emergency Provider Active Senior Marketing Specialist Relationship Specialty Start Date End Date Wallace Craft DO [address] [address] PCP - General Family Medicine 12/22/21 Team Status: Inactive Member Role Status Dates Paulie Boo DO Primary Care Provider, Attending Provider Active Team Status: Inactive Member Role Status Dates Wallace Craft DO Primary Care Provider Active NICOLE Garcia- Emergency Provider Active Senior Marketing Specialist Relationship Specialty Start Date End Date Wallace Craft DO [address] [address] PCP - General Family Medicine 12/22/21 Team Status: Inactive Member Role Status Dates Wallace Craft DO Primary Care Provider Active Ana Maria Loera APRN Emergency Provider Active Senior Marketing Specialist Relationship Specialty Start Date End Date Wallace Craft DO [address] [id number] PCP - General Family Medicine 12/22/21 Team Status: Active Member Role Status Dates Luly Oneil APRN DECORATOR MANNEQU[employer]-C Primary Care Provider Active Team Status: Inactive Member Role Status Dates Luly Oneil APRN DECORATOR [employer] Primary Care Provider, Attending Provider Active Start: September 06, 2023 End: September 06, 2023 Team Status: Inactive Member Role Status Dates Luly ClintondanielCHRISTA jensen DECORATOR [employer] Primary Care Provider, Attending Provider Active Start: September 07, 2023 End: September 07, 2023 Team Status: Inactive Member Role Status Dates Luly Espinosaverenice CHRISTA DECORATOR [employer] Primary Care Provider, Attending Provider Active Start: October 04, 2023 End: October 04, 2023 Team Status: Inactive Member Role Status Dates Luly ClintondanielCHRISTA jensen DECORATOR [employer] Primary Care Provider Active Start: October 23, 2023 End: October 23, 2023 Db Oliver DO Emergency Provider Active Sta rt: October 23, 2023 End: October 23, 2023 Goals (unrecognized section and content) Goals may [...] BE BASED ON THE PRIMARY CLINICAL RECORDS. [employer] [facility]. provides no warranty or guarantee of the accuracy or completeness of information in this document.
--- NOTE | 2023-11-21 20:05 | CT_ITS ---
The [address] [address] Patient Name: CARMELTIA INGRAM MRN: [facility]:[id number] date: 1975 Sex: M Assigned Patient Location: ER Current Patient Location: .[facility] Accession/Order Number: [id number] Exam Date: 11/21/2023 20:29 Report Date: 11/21/2023 20:57 At the request of: STORM OHARA Procedure: CT lumbar spine wo con EXAM: CT scan of the lumbar spine with IV contrast. Dose reduction technique used: Automated exposure control and/or adjustment of the mA and/or kV according to patient size and/or use of iterative reconstruction technique. REASON FOR EXAM: low back pain COMPARISON: CT scan dated 07/21/2023 FINDINGS: No fractures, dislocations or acute malalignment of the lumbar spine. Posterior sylvester and pedicle screw fusion from L4 through S1, hardware is intact. Minimal grade 1 retrolisthesis of L2 on L3 and L3 on L4. L5-S1 interbody fusion prosthesis. Multilevel bilateral neural foraminal stenoses, worst at the L3-L4 and L5-S1 levels. Spinal canal stenosis at the L3-L4 level is at least moderate, although portions of the spinal canal are obscured by the metallic artifact. Bilateral sacroiliac joint instrumented arthrodesis. Nonobstructing bilateral calyceal renal stones. Remainder unremarkable. CT/CT lumbar spine wo con IMPRESSION: 1. No acute lumbar spine abnormalities. 2. L3-L4 spinal canal stenosis is at least moderate, consider follow-up evaluation with MRI if clinically indicated. 3. L4-S1 posterior sylvester and pedicle screw fusion, hardware is intact. Electronically authenticated by: FABIENNE MATUTE Date: 11/21/2023 20:57
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
[2023-11-21] MEDS: METHYLPREDNISOLONE SOD SUCC PF 125 MG/2 ML VIAL IM (20:20)
[2023-11-21] MEDS: KETOROLAC TROMETHAMINE 60 MG/2 ML VIAL IM (20:21)
[2023-11-21] MEDS: OXYCODONE HCL/ACETAMINOPHEN 5MG/325MG 1 TAB PO (20:21)
[2023-11-21] MEDS: MORPHINE SULFATE 4 MG/ML VIAL 10 MG IM (21:45)
[2023-11-21 22:30] VITALS: BP 116/73; PULSE 79; O2SAT 95
== END 2023-11-21 22:34 | disposition home or self-care (01) ==
PROVIDERS: Emergency Provider Emergency Medicine; PCP Nurse Practitioner Family
DX: M54.41 Lumbago with sciatica, right side (principal); Z87.891 Personal history of nicotine dependence
CPT/HCPCS: 72131; 96372; 99285; J1885; J2270; J2919

== ENCOUNTER 2025-03-20 05:11 | Emergency (ER) | payer OTHER, SELFPAY ==
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
--- OUTSIDE RECORDS SUMMARY | 2023-12-14 06:40 | XMS_ITS ---
Author Organization [facility] Address [address] [place] [address] Care Team Providers Care Dairy Nutrition Specialist Name Role Phone Self, Referral Unavailable Unavailable Verenice Parker Unavailable [phone] REASON FOR VISIT LUMBAR PAIN Encounters Encounter Location Date Provider Diagnosis [address] [place] [address] 12/14/2023 Verenice Parker Plan Of Treatment No Information Progress Notes * JUAN JOSE CARMELITA ADOB: 5 (49 yo M)Acc No.[id number]:12/14/2023 Patient:?JUAN JOSEPATRICIACARMELITA Mónica :?Verenice Pearl MD, PhDDOB:1975 ???Age:48 Y???Sex:MaleDate:12/14/2023hone:[phone]:Camilo[address] [place] Subjective: * Chief Complaints: * 1 . LUMBAR PAIN. * Medical History: Objective: * Vitals: Assessment: Plan: * Treatment: Forms: * Images: * Electronic signature of Verenice Parker MD, PHD on 03/20/2025 at 06:22 AM EST Sign off status: Pending * Provider: Sandro Pearl MD, PhD Date: 12/14/2023 Generated for Printing/Faxing/eTransmitting on:?03/20/2025 06:22 AM EST
--- OUTSIDE RECORDS SUMMARY | 2024-01-18 04:00 | XMS_ITS ---
Author Organization [facility] Address [address] [place] [address] Care Team Providers Care Turret Press Operator Name Role Phone Self, Referral Unavailable Unavailable Verenice Parker Unavailable [phone] REASON FOR VISIT LUMBAR PAIN Encounters Encounter Location Date Provider Diagnosis [facility] Office [address] [place] [address] [place] [address] 01/18/2024 Verenice Parker Plan Of Treatment Pending Test Test Name Order Date Lumbar spine, 4v flex ext - [id number] 2023 Progress Notes * CARMELITA INGRAM ADOB: 5 (49 yo M)Acc No.[id number]:01/18/2024 Patient:?JUAN JOSEPATRICIACARMELITA Mónica :?Verenice Pearl MD, PhDDOB:1975 ???Age:48 Y???Sex:MaleDate:01/18/2024hone:[phone]:[address] [facility] Subjective: * Chief Complaints: * 1 . LUMBAR PAIN. * Medical History: Objective: * Vitals: Assessment: Plan: * Treatment: ?Imaging: Lumbar spine, 4v flex ext - [id number] Forms: * Images: * Electronic signature of Verenice Parker MD, PHD on 03/20/2025 at 06:22 AM EST Sign off status: Pending * Provider: Sandro Pearl MD, PhD Date: 0 01/18/2024 Generated for Printing/Faxing/eTransmitting on:?03/20/2025 06:22 AM EST
--- OUTSIDE RECORDS SUMMARY | 2024-03-03 04:30 | XMS_ITS ---
Author Organization [facility] Address [address] [place] [address] Care Team Providers Care Claims Agent Right Of Way Name Role Phone Sabrina Cooper Primary Care Provider REASON FOR VISIT 2 week f/u;med check Encounters Encounter Location Date Provider Diagnosis [facility] [address] [place] [place] [address] 03/03/2024 Sabrina Cooper Plan Of Treatment No Information Progress Notes * ADRIANE INGRAMOB:1975 (49 yo M)Acc No.[id number]:03/03/2024 Progress Notes Patient: PATRICIA BAILEYEMY :?RENEE BARNESOB:1975???Age:48 Y???Sex: MaleDate:4Phone:[phone]:[address], [id number] Subjective: * Chief Complaints: * 2 week f/u;med check * Electronic signature of Sabrina Cooper DO on 03/20/2025 at 06:23 AM ESTSign off status: Pending * Provider: Thien BURCIAGA DO Date: 05/03/2023 Generated for Printing/Faxing/eTransmitting on:?03/20/2025 06:23 AM EST
--- OUTSIDE RECORDS SUMMARY | 2024-04-07 03:15 | XMS_ITS ---
Author Organization [facility] Address [address] [place] [address] Care Team Providers Care Store Administrator Name Role Phone Sabrina Cooper Primary Care Provider REASON FOR VISIT 1 month f/u weight check Encounters Encounter Location Date Provider Diagnosis [facility] [address] [place] [address] 04/07/2024 Sabrina Cooper Plan Of Treatment No Information Progress Notes * ADRIANE INGRAMOB:1975 (49 yo M)Acc No.[id number]:04/07/2024 Progress Notes Patient: PATRICIA BAILEYEMY :?RENEE BARNESOB:1975???Age:48 Y???Sex: MaleDate:4Phone:[phone]:[address], [id number] Subjective: * Chief Complaints: * 1 month f/u weight check * Electronic signature of Sabrina Cooper DO on 03/20/2025 at 06:22 AM ESTSign off status: Pending * Provider: Thien BURCIAGA DO Date: 06/08/2023 Generated for Printing/Faxing/eTransmitting on:?03/20/2025 06:22 AM EST
--- OUTSIDE RECORDS SUMMARY | 2024-04-28 04:15 | XMS_ITS ---
Author Organization [facility] Address [address] [facility] [place] [address] Care Team Providers Care Glazier Artist Name Role Phone Sabrina Cooper Primary Care Provider [phone] Mechelle Clement [phone] REASON FOR VISIT hyperlipidemia, BMI 40, work on quick snacks/meal prep Encounters Encounter Location Date Provider Diagnosis [facility] [address] [facility] [place] [address] 04/28/2024 Mechelle Clement Plan Of Treatment No Information Progress Notes * ADRIANE INGRAMOB:1975 (49 yo M)Acc No.[id number]:04/28/2024 Patient:?JUAN JOSE CARMELITA :?Mechelle ClementDOB:1975???Age:48 Y???Sex:Male Date:04/28/2024hone:[phone]:[address], [id number]:Sabrina Cooper Subjective: * Chief Complaints: * h yperlipidemia, BMI 40, work on quick snacks/meal prep * Electronic signature of Mechelle Clement RD on 03/20/2025 at 06:23 AM ESTSign off status: Pending * Provider: Lauren Clement Date: Generated for Printing/Faxing/eTransmitting on:?03/20/2025 06:23 AM EST
--- OUTSIDE RECORDS SUMMARY | 2024-09-04 08:30 | XMS_ITS ---
Author Organization [facility] Address [address] [place] [address] Care Team Providers Care Router Machine Operator Name Role Phone Sabrina Cooper Primary Care Provider REASON FOR VISIT 1 month f/u Encounters Encounter Location Date Provider Diagnosis [facility] [address] [place] [address] 09/04/2024 Sabrina Cooper Plan Of Treatment No Information Progress Notes * ADRIANE INGRAMOB:1975 (49 yo M)Acc No.[id number]:09/04/2024 Progress Notes Patient: Martínez DELAROSACARMELITA Bains :?RENEE BARNESOB:1975???Age:49 Y???Sex: MaleDate:09/04/2024Phone:[phone]:[address], [id number] Subjective: * Chief Complaints: * 1 month f/u * Electronic signature of Sabrina Cooper DO on 03/20/2025 at 06:22 AM ESTSign off status: Pending * Provider: Thien BURCIAGA DO Date: 09/04/2024 Generated for Printing/Faxing/eTransmitting on:?03/20/2025 06:22 AM EST
--- OUTSIDE RECORDS SUMMARY | 2024-10-07 11:00 | XMS_ITS ---
Author Organization [facility] Address [address] [place] [address] Care Team Providers Care Zinc Plate Grainer Name Role Phone Sabrina Cooper Primary Care Provider [phone] REASON FOR VISIT 1 month f/u weight check Encounters Encounter Location Date Provider Diagnosis [facility] [address] [place] [address] 10/07/2024 Sabrina Cooper Plan Of Treatment No Information Progress Notes * ADRIANE INGRAMOB:1975 (49 yo M)Acc No.[id number]:10/07/2024 Progress Notes Patient: Martínez JOLLEY CARMELITA :?RENEE BARNESOB:1975???Age:49 Y???Sex: MaleDate:10/07/2024Phone:[phone]:[address], [id number] Subjective: * Chief Complaints: * 1 month f/u weight check * Electronic signature of Sabrina Cooper DO on 03/20/2025 at 06:22 AM ESTSign off status: Pending * Provider: Thien BURCIAGA DO Date: 0 10/07/2024 Generated for Printing/Faxing/eTransmitting on:?03/20/2025 06:22 AM EST
[2025-03-20 05:22] VITALS: BP 140/100; PULSE 88; TEMP 36.8; O2SAT 96; BMI 34.2
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
[2025-03-20 05:58] VITALS: O2SAT 97
[2025-03-20 05:59] VITALS: BP 131/86; O2SAT 95
[2025-03-20 06:00] VITALS: O2SAT 97
[2025-03-20 06:10] VITALS: O2SAT 94
[2025-03-20] MEDS: MORPHINE SULFATE 4 MG/ML VIAL IV (06:18)
--- OUTSIDE RECORDS SUMMARY | 2025-03-20 06:22 | XMS_ITS | Patient Health Record ---
Author Organization [facility] Address [address] [place] [address] Care Team Providers Care Olive Grower Name Role Phone Elliot Domingo BUCKNER Primary Care Provider Unavailabl e Reason For Referral No Information Medications Medication SIG (Take, Route, Frequency, Duration) Notes Start Date End Date Status Diclofenac Potassium 50 MG 1 tablet Orally Twice a day PRN UnknownoxyCODONE HCl 15 MG1 tablet Orally every 8 hrs; Duration: 30 daysfill date 02/18/1810ActiveoxyCODONE HCl 15 MG1 tablet Orally every 8 hrs; Duration: 30 daysfill date 03/19/1810ActiveTrokendi XR 50 MG1 capsule Orally Once a day at night; Duration: 90ActiveSprix 15.75 MG/SPRAY1 puff as needed Nasally every 8 hrs; Duration: 5 day(s)12/03/2017UnknownoxyCODONE HCl 15 MG1 tablet Orally BID; Duration: 30 days08/31/2017UnknownoxyCODONE HCl 15 MG1 tablet Orally TID; Duration: 30 daysfilled date 03/26/1808Unknown Gabapentin 100 MG1 tablet Orally [id number] SR 150 MG1 tablet Orally Once a dayUnknown Social History Tobacco Use: Social History Observation Description Date Details (start date - stop date) Never Smoker NA - NA Tobacco Use/Smoking Question Answer Notes Patient is a nonsmoker Problems Problem Type SNOMED Code ICD Code Onset Dates Problem Status W/U Status Risk Notes Problem Chronic pain syndrome (699304062) Chronic pain syndrome (G89.4) ActiveconfirmedProblemChronic kidney disease stage 4 (408099698)CKD (chronic kidney disease) stage 4, GFR 15-29 ml/min (N18.4)ActiveconfirmedProblemBilateral sacroiliitis (9123798176)Bilateral sacroiliitis (M46.1)ActiveconfirmedProblem Chronic intractable migraine without aura (086980567188422)Intractable chronic migraine without aura and without status migrainosus (G43.719)Activeconfirmed ProblemDisplacement of lumbar intervertebral disc without myelopathy (39481655) Discogenic syndrome, lumbar (M51.26)ActiveconfirmedProblemLumbosacral spondylosis without myelopathy (56087520)Facet degeneration of lumbosacral region (M47.817)ActiveconfirmedProblemPost-laminectomy syndrome (67551990)Failed back syndrome of lumbar spine (M96.1)Activeconfirmed Plan Of Treatment No Information Insurance Providers Payer Name Payer Address Payer Phone Subscriber Number Group Number Insured Name Patient Relationship to Insured Coverage Start Date Coverage End Date [address] [place], [place] [id number] Sean Eastman Self - patient is the insured [address] [place] [address] [id number] Alessandra Eastmanelf - patient is the insured Medical (General) History Medical History History ICD Code restless legs OSASurgical History Surgery Date(Month/Year) Caudal 08/30/17
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
--- OUTSIDE RECORDS SUMMARY | 2025-03-20 06:22 | XMS_ITS | Clinical Summary ---
Author Organization [facility] Address [address] [place] [address] Phone Care Team Providers Care Gasoline Engine Assembler Name Role Phone Kelley Corbin DO Primary Care Provider Social History Tobacco UseTypesPacks/DayYears UsedDateSmoking Tobacco: Never AssessedSex and Gender InformationValueDate RecordedSex Assigned at BirthNot on fileLegal Sex Male03/24/2022 12:39 PM ESTGender IdentityNot on fileSexual OrientationNot on file Plan of Treatment Health MaintenanceDue DateLast DoneCommentsCT Dshnyjudhgnw89/26/1975Colonoscopy 1974Colorectal Cancer Fxujszuil78/26/1975FIT-DNA (Cologuard)1974FIT 1974HIV Rxstlwnql91/26/1975Lipid Panel1974 0175Zgdbgrmitouky65/26/1975 Yearly Adult Kacshius35/26/1975MMR Vaccines (1 of 1 - Standard series)08/24/1975 Hepatitis C Fbsribiul49/26/1993Hepatitis B Vaccines (1 of 3 - 19+ 3-dose series) 1993DTaP/Tdap/Td Vaccines (1 - Tdap)1996PSA Prostate Cancer Majvzzmsc58/26/2025Pneumococcal Vaccine (1 of 1 - PCV)2024Zoster Vaccines (1 of 2)2024Influenza Vaccine (#1)2024OVID-19 Vaccine (1 - season)2024HIB VaccinesAged OutNo longer eligible based on patient's age to complete this topicHPV VaccinesAged OutNo longer eligible based on patient's age to complete this topicHepatitis A VaccinesAged OutNo longer eligible based on patient's age to complete this topicIPV VaccinesAged OutNo longer eligible based on patient's age to complete this topicMeningococcal VaccineAged OutNo longer eligible based on patient's age to complete this topicRotavirus Vaccines Aged OutNo longer eligible based on patient's age to complete this topic Care Teams Team MemberRelationshipSpecialtyStart DateEnd Date Kelley Corbin DO PCP - General05/18/22
--- OUTSIDE RECORDS SUMMARY | 2025-03-20 06:22 | XMS_ITS | Clinical Summary ---
Author Organization [facility] Healthcare Address [address] [place] [address] Care Team Providers Care Ore Crusher Name Role Phone Isaías Silvestre Primary Care Provider + [phone] Allergies No known active allergies Medications MedicationSigDispense QuantityRefillsLast FilledStart DateEnd DateStatus Multiple Vitamin (multivitamin) tablet Take 1 tablet by mouth DailyActive acetaminophen (Tylenol 8 Hour) 650 MG ER tablet Take 650 mg by mouth every 8 (eight) hours if needed for mild pain Do not crush, chew, or split.Active ibuprofen 100 MG chewable tablet ChewActive tiZANidine (Zanaflex) 4 MG tablet Indications:Lumbar back painTake 1 tablet (4 mg) by mouth every 8 (eight) hours if needed for muscle spasms 30 tablet 5Active sertraline (Zoloft) 100 MG tablet Indications:AnxietyTake 1 tablet (100 mg) by mouth Daily 90 tablet 5Active Testosterone Cypionate 200 MG/ML solution Inject 200 mg as directed every 14 (fourteen) days 2 mL 5Active Lidocaine (HM Lidocaine Patch) 4 % patch Apply riyybgcaj17/05/2025Discontinued testosterone (Androgel) 50 MG/5GM (1%) gel Indications:Male hypogonadismPlace 1 packet (50 mg) on the skin Daily 30 packet Discontinued predniSONE (Deltasone) 20 MG tablet Indications:Lumbar back painTake 2 tablets for 4 days, then take 1 tablet for 3 days by mouth 11 tablet Discontinued(Reorder) sertraline (Zoloft) 50 MG tablet Indications:AnxietyTake 1 tablet (50 mg) by mouth Daily 30 tablet 50/Discontinued(Reorder) hydrOXYzine HCl (Atarax) 25 MG tablet Indications:AnxietyTake 1 tablet (25 mg) by mouth every 6 (six) hours if needed for itching 50 tablet Discontinued tiZANidine (Zanaflex) 4 MG tablet Indications:Lumbar back painTake 1 tablet (4 mg) by mouth every 8 (eight) hours if needed for muscle spasms 30 tablet Discontinued(Reorder) HYDROcodone-acetaminophen (Lincoln) 5-325 MG tablet Indications:Lumbar back painTake 1 tablet by mouth every 6 (six) hours if needed for severe pain 15 tablet Discontinued predniSONE (Deltasone) 20 MG tablet Indications:Lumbar back painTake 2 tablets for 4 days, then take 1 tablet for 3 days by mouth 11 tablet Discontinued Active Problems ProblemNoted DateDiagnosed DateExcessive weight gain11/25/2024MI 40.0-44.9, adult11/25/20241033Bxkvknheaqtykcqiereg78/29/2025Mixed nrdzlolsdykyec91/29/2025Male yevqwlujdpxg07/29/2025ilateral ubsnjeqdjhjv54/26/0398Uxxofax45/15/2022 Ghimbnqsha98/15/2022Gastroesophageal reflux abyweqm4303/14/2022alculus of kidney 05/14/2018Acquired qhhkhqhcdhhyxuuuf38/29/2009Postlaminectomy syndrome of lumbar fodmku0504/27/2009 Overview (11/25/2024): Added automatically from request for surgery [id number] Generalized anxiety /28/2009 Resolved Problems ProblemNoted DateDiagnosed DateResolved DatePeriodic headache syndrome, not vnlkwycbfsi75Hydronephrosis/Obstructive sleep apnea/bnormal glucose level Essential ncjadducrshd47/2025 Encounters DateTypeDepartmentCare CphvJrkiyoaqsgn63/05/2025 3:40 PM ESTOffice Visit [facility] [address] [place] [address] Isaías Silvestre, DO Male hypogonadism (Primary Dx); Vetuykqpkea68/05/2025amboo flowsheet [facility] [address] [place] [address] Isaías Silvestre, DO 03/04/20252265Dhckih35/03/2025Results Follow-Up [facility] [address] [place] [address] Niraj Balbuena PA Testosterone, total and free, Lipid panel, CBC and differential, Additional followed-up results: 3:00 PM EDTOffice Visit [facility] [address] [place] [address] Niraj Balbuena, PA Lumbar back pain (Primary Dx); Encounter for administration of vaccine; Encounter for immunization; Anxiety; Male hypogonadism; Urinary incontinence, unspecified type; Primary hypertension; JOHN (obstructive sleep apnea); Lumbar radiculopathy; Muscle spasm02/23/2025amboo flowsheet [facility] [address] [place] [address] Niraj Balbuena PA 02/23/20250766Zybcyg54/02/2025Orders Only [facility] [address] [place] [address] Niraj Balbuena, PA Lumbar back pain (Primary Dx)12/22/2024 8:20 AM EDTOffice Visit [facility] [address] [place] [address] Niraj Balbuena PA Lumbar back pain (Primary Dx); Fjumdqd7112/22/2024amboo flowsheet [facility] [address] [place] [address] Niraj Balbuena PA 12/22/2024Travelfrom Last 3 Months Immunizations ImmunizationAdministration DatesNext DueRell Huntley Canine Kidney, subunit, trivalent, injectable, contains cgcnmvfyaffg46/27/2025 Family History Medical HistoryRelationNameCommentsNo Known WeehrncrZjjdvtk0Nd Known Problems Arzqrfsd5Ib Known ProblemsFatherNo Known ProblemsMotherRelationNameStatus XemeqhpuYorumzg9OvehrOgybjpil2EiypeXpxdcpJmewwKjckupVopeb Social History Tobacco UseTypesPacks/DayYears UsedDateSmoking Tobacco: NeverSmokeless Tobacco: NeverAlcohol UseStandard Drinks/WeekCommentsYes2 (1 standard drink = 0.6 oz pure alcohol)B1300 Health LiteracyAnswerDate RecordedHow often do you need to have someone help you when you read instructions, pamphlets, or other written material from your doctor or pharmacy?Never11/25/2024Humiliation, Afraid, Rape, and Kick questionnaireAnswerDate RecordedWithin the last year, have you been afraid of your partner or ex-partner?No11/25/2024Within the last year, have you been humiliated or emotionally abused in other ways by your partner or ex-partner?No11/25/2024Within the last year, have you been kicked, hit, slapped, or otherwise physically hurt by your partner or ex-partner?No11/25/2024Within the last year, have you been raped or forced to have any kind of sexual activity by your partner or ex-partner?No11/25/2024Social Connection and Isolation Panel AnswerDate RecordedIn a typical week, how many times do you talk on the phone with family, friends, or neighbors?More than three times a week11/25/2024How often do you get together with friends or relatives?Once a week11/25/2024How often do you attend worship or hindu services?Never11/25/2024Do you belong to any clubs or organizations such as worship groups, unions, fraternal or athletic groups, or school groups?No11/25/2024How often do you attend meetings of the clubs or organizations you belong to?Never11/25/2024re you , , , , never , or living with a partner?Tcxlhhnw20/29/2025 AUDIT-CAnswerDate RecordedQ1: How often do you have a drink containing alcohol? Monthly or less11/25/2024Q2: How many drinks containing alcohol do you have on a typical day when you are drinking?3 or Q3: How often do you have six or more drinks on one occasion?Less than ljwhbwq3911/25/2024Overall Financial Resource Strain (CARDIA)AnswerDate RecordedHow hard is it for you to pay for the very basics like food, housing, medical care, and heating?Not hard at all 11/25/2024PHQ-2AnswerDate RecordedPatient Health Questionnaire-2 Score0 03/04/2025[facility] [place] [facility] - Occupational Stress QuestionnaireAnswerDate RecordedDo you feel stress - tense, restless, nervous, or anxious, or unable to sleep at night because yourmind is troubled all the time - these days?To some mqfuln8211/25/2024Exercise Vital SignAnswerDate Recorded On average, how many days per week do you engage in moderate to strenuous exercise (like a brisk walk)?3 days11/25/2024On average, how many minutes do you engage in exercise at this level?20 min11/25/2024Hunger Vital SignAnswerDate RecordedWithin the past 12 months, you worried that your food would run out before you got the money to buymore.Never true11/25/2024Within the past 12 months, the food you bought just didn't last and you didn't have money to get more.Never true11/25/2024PRAPARE - TransportationAnswerDate RecordedIn the past 12 months, has lack of transportation kept you from medical appointments or from getting medications?No11/25/2024In the past 12 months, has lack of transportation kept you from meetings, work, or from getting things needed for daily living?No11/25/2024Housing Stability Vital SignAnswerDate RecordedIn the last 12 months, was there a time when you were not able to pay the mortgage or rent on time?No11/25/2024Number of Times Moved in the Last YearNot on file 11/25/2024t any time in the past 12 months, were you homeless or living in a residential (including now)?No11/25/2024Sex and Gender InformationValueDate Recorded Sex Assigned at BirthNot on fileLegal FxaSifs2807/12/2022 6:59 PM EDTGender IdentityNot on fileSexual OrientationNot on file Last Filed Vital Signs Vital SignReadingTime TakenCommentsBlood Qiycsskh388/8603/04/2025 3:53 PM EST Mvwle565103/04/2025 3:53 PM JGFQyzrkkzxpbn85.1 ??C (97 ??F)03/04/2025 3:53 PM EST Respiratory Rate--Oxygen Qvvwlhvliz37%03/04/2025 3:53 PM ESTInhaled Oxygen Concentration--Amzqve564 kg (279 lb)03/04/2025 3:53 PM VWXIrxjzu113.3 cm (5' 9 ) 03/04/2025 3:53 PM ESTBody Mass Index41. 3:53 PM EST Plan of Treatment DateTypeDepartmentCare Team (Latest Contact Info)Zrouqmxbjwv06/05/2026 10:00 AM ESTOffice Visit [facility] [address] [place] [address] Isaías Silvestre, [address] [place] [address] Health MaintenanceDue DateLast DoneCommentsCT Psghweqpsnxb17/26/1975FIT-DNA 1974FIT1974FOBT1974Lacsyvgamnldh73/26/1975COVID-19 Vaccine ( season), 05/26/2020, 04/28/2020Colonoscopy , 02/01/2022, 2Colorectal Cancer Screening 02/02/2032Influenza GyyhyeaJobdlmoct67/27/2025, 01/16/2024, 02/16/2022, Additional history existsPneumococcal Vaccine: Pediatrics (0 to 5 Years) and At- Risk Patients (6 to 64 Years)Aged OutNo longer eligible based on patient's age to complete this topic Procedures Procedure NamePriorityDate/TimeAssociated DiagnosisCommentsCOMPREHENSIVE METABOLIC XOUEEXscgcdn36/28/2025 8:55 AM EDT Encounter for administration of vaccine Encounter for immunization Lumbar back pain Anxiety Male hypogonadism Urinary incontinence, unspecified type Primary hypertension JOHN (obstructive sleep apnea) PSA, TOTAL AND VKTRMkokkku40/28/2025 8:55 AM EDT Encounter for administration of vaccine Encounter for immunization Lumbar back pain Anxiety Male hypogonadism Urinary incontinence, unspecified type Primary hypertension JOHN (obstructive sleep apnea) CBC (INCLUDES DIFF/PLT)Gojfetl9202/24/2025 8:55 AM EDT Encounter for administration of vaccine Encounter for immunization Lumbar back pain Anxiety Male hypogonadism Urinary incontinence, unspecified type Primary hypertension JOHN (obstructive sleep apnea) LIPID QSCJYUuzugxw95/28/2025 8:55 AM EDT Encounter for administration of vaccine Encounter for immunization Lumbar back pain Anxiety Male hypogonadism Urinary incontinence, unspecified type Primary hypertension JOHN (obstructive sleep apnea) TESTOSTERONE FREE AND TKYEDGnpljqt35/28/2025 8:55 AM EDT Encounter for administration of vaccine Encounter for immunization Lumbar back pain Anxiety Male hypogonadism Urinary incontinence, unspecified type Primary hypertension JOHN (obstructive sleep apnea) COLONOSCOPY ZDTFLIKLEQBpekghv51/05/2022 8:19 AM EDTfrom Last 3 Months or Most Recently Relevant to Health Maintenance Results * CBC and differential (02/24/2025 8:55 AM EDT)ComponentValueRef RangeTest MethodAnalysis TimePerformed AtPathologist SignatureWBC9.23.4 - 10.8 x10E3/uL [facility]ABCORPRBC4.874.14 - 5.80 x10E6/dYYUALPNXZoi72.313.0 - 17.7 g/dALWZGSOCGzx61.1 37.5 - 51.0 %YHRWILMCXF5474 - 97 aUMLIKYIKEZM21.426.6 - 33.0 olUVTDHIKQINY53.4 31.5 - 35.7 g/lDNUMFQZKHMH50.111.6 - 15.4 %TZXNEHAKwaswwlbz897628 - 450 x10E3/bTCWSLDMPDywgczojrqo83Nyx Estab. %MSWPUYYRalmkz91Qce Estab. %[facility] Idiqfobtt6Hgx Estab. %LOPBCQVXti5Jhe Estab. %ZVMBYJFVmrdl3Sim Estab. %[facility] Neutrophils Abs6.61.4 - 7.0 x10E3/uLLABCORPLymphs Abs1.90.7 - 3.1 x10E3/uL [facility]ORPMonocytesAbs0.50.1 - 0.9 x10E3/uLLABCORPEos Abs0.10.0 - 0.4 x10E3/uL [facility]PBaso Abs0.00.0 - 0.2 x10E3/uLLABCORPImmature Vadggzoclpfy7Lev Estab. % [facility]ABCORPImmature Grans Abs0.00.0 - 0.1 x10E3/uLLABCORPSpecimen (Source) Anatomical Location / LateralityCollection Method / VolumeCollection Time Received TimeBloodVenous blood specimen / Dtdwnup6002/24/2025 8:55 AM EDT 02/24/2025 Narrative [facility] - 02/28/2025 3:07 PM EDT Performed at: [address] [place] [address] ??[id number] Ore Tester: Shakeel Laguna PhD, Phone: ??[phone] Authorizing ProviderResult TypeResult StatusNiraj JORGENSEN BLOOD ORDERABLES Final ResultPerforming OrganizationAddressCity/State/ZIP CodePhone Number [facility] * (ABNORMAL) Testosterone, total and free (02/24/2025 8:55 AM EDT)ComponentValue Ref RangeTest MethodAnalysis TimePerformed AtPathologist SignatureTESTOSTERONE 170(L)264 - 916 ng/dLLABCORPComment: Adult male reference interval is based on a population of healthy nonobese males (BMI <30) between 19 and 39 years old. honey Castillo.al. JCEM 2017,102;0136-2522. PMID: [id number]. Free Testost Direct2.7(L)7.2 - 24.0 pg/mLLABCORPSpecimen (Source)Anatomical Location / LateralityCollection Method / VolumeCollection TimeReceived TimeBlood Venous blood specimen / Ncupvih7802/24/2025 8:55 AM EDT1 Narrative [facility] - 02/28/2025 3:07 PM EDT Performed at: 01 - [facility] [address] ??[id number] Ore Tester: Shakeel Laguna PhD, Phone: ??[phone] Performed at: ??02 - [facility] [address] ??[id number] Ore Tester: Aftab Hanley MD, Phone: ??[phone] Authorizing ProviderResult TypeResult StatusNiraj JORGENSEN BLOOD ORDERABLES Final ResultPerforming OrganizationAddressCity/State/ZIP CodePhone Number [facility] * PSA, total and free (02/24/2025 8:55 AM EDT)ComponentValueRef RangeTest Method Analysis TimePerformed AtPathologist SignaturePSA1.80.0 - 4.0 ng/mLL[facility]P Comment: Buster ECLIA methodology. According to the [place] [employer], Serum PSA should decrease and remain at undetectable levels after radical prostatectomy. The AUA defines biochemical recurrence as an initial PSA value 0.2 ng/mL or greater followed by a subsequent confirmatory PSA value 0.2 ng/mL or greater. Values obtained with different assay methods or kits cannot be used interchangeably. Results cannot be interpreted as absolute evidence of the presence or absence of malignant disease. PSA, FREE0.25N/A ng/mLLABCORPComment:Buster ECLIA methodology.PSA, % FREE13.9% [facility]PComment: The table below lists the probability of prostate cancer for men with non-suspicious SHIRA results and total PSA between 4 and 10 ng/mL, by patient age (Belem et al, [place] 1998, 279:1542). ?% Free PSA ? 50-64 yr ?65-75 yr ?0.00-10.00% ?56% ? 55% ? 10.01-15.00% ?24% ? 35% ? 15.01-20.00% ?17% ? 23% ? 20.01-25.00% ?10% ? 20% >25.00% 5% 9% Please note: ??Belem et al did not make specific ?recommendations regarding the use of ?percent free PSA for any other population ?of men. Specimen (Source)Anatomical Location / LateralityCollection Method / Volume Collection TimeReceived TimeBloodVenous blood specimen / Flbvtfj0102/24/2025 8:55 AM EDT1 Narrative [facility] - 02/28/2025 3:07 PM EDT Performed at: - [facility] ??[id number] Ore Tester: Shakeel Laguna PhD, Phone: ??[phone] Authorizing ProviderResult TypeResult StatusNiraj JORGENSEN BLOOD ORDERABLES Final ResultPerforming OrganizationAddressCity/State/ZIP CodePhone Number [facility] * (ABNORMAL) Lipid panel (02/24/2025 8:55 AM EDT)ComponentValueRef RangeTest MethodAnalysis TimePerformed AtPathologist SignatureCholesterol, Dyibx524450 - 199 mg/kXSRYKIJUYnheacqkajhbn966 - 149 mg/dLLABCORPHDL Ieyoyvntchp42>39 mg/dL [facility]ABC[facility]PVLDL Cholesterol Yer322 - 40 mg/dLLABCORPLDL Chol Calc (NIH)120(H)0 - 99 mg/dLLABCORPSpecimen (Source)Anatomical Location / LateralityCollection Method / VolumeCollection TimeReceived TimeBloodVenous blood specimen / Lyefvxe7902/24/2025 8:55 AM EDT1 Narrative [facility] - 02/28/2025 3:07 PM EDT Performed at: 01 - [facility] ??[id number] Ore Tester: Shakeel Laguna PhD, Phone: ??[phone] Authorizing ProviderResult TypeResult StatusNiraj JORGENSEN BLOOD ORDERABLES Final ResultPerforming OrganizationAddressCity/State/[facility] CodePhone Number [facility] * (ABNORMAL) Comprehensive metabolic panel (02/24/2025 8:55 AM EDT)Component ValueRef RangeTest MethodAnalysis TimePerformed AtPathologist SignatureGlucose 106(H)70 - 99 mg/eOOPNOZOACXT146 - 24 mg/dLLABCORPCreat0.880.76 - 1.27 mg/dL GKKGIEXURII405>59 mL/min/1.73[facility]PBUN/Creat Jzdod330 - 88VBTCHCVFwugjf562159 - 144 mmol/[facility]PPotassium4.43.5 - 5.2 mmol/HESSGQYOYgexassq64574 - 106 mmol/[facility]ORPCarbon Ttubxge1546 - 29 mmol/[facility]ORPCalcium9.38.7 - 10.2 mg/dL [facility]PProtein Total6.66.0 - 8.5 g/dLLABCORPAlbumin4.14.1 - 5.1 g/dLL[facility] Globulin Total2.51.5 - 4.5 g/dLLABCORPBili Total0.30.0 - 1.2 mg/dLLABCORPAlk Iovdlizwiuv4519 - 123 IU/RXRPMJXSITB613 - 40 IU/UOONPOCOZTY056 - 44 IU/L [facility]PSpecimen (Source)Anatomical Location / LateralityCollection Method / VolumeCollection TimeReceived TimeBloodVenous blood specimen / Unknown 02/24/2025 8:55 AM EDT1 Narrative [facility] - 02/28/2025 3:07 PM EDT Performed at: - [facility] [address] ??[id number] Ore Tester: Shakeel Laguna PhD, Phone: ??[phone] Authorizing ProviderResult TypeResult StatusNiraj JORGENSEN BLOOD ORDERABLES Final ResultPerforming OrganizationAddressCity/State/ZIP CodePhone Number [facility] * COLONOSCOPY DIAGNOSTIC (02/01/2022 8:19 AM EDT)Anatomical RegionLaterality ModalityRadiographic Imaging Narrative Authorizing ProviderResult TypeResult StatusAbdarun Leal MDIMG XR PROCEDURES Final Result from Last 3 Months or Most Recently Relevant to Health Maintenance Insurance Care Teams Team MemberRelationshipSpecialtyStart DateEnd Date Isaías Silvestre DO [address] [place] [address] PCP - GeneralFamily Medicine11/25/24
--- OUTSIDE RECORDS SUMMARY | 2025-03-20 06:22 | XMS_ITS | Patient Health Record ---
[facility] Address [address] [place] [address] Care Team Providers Care Flame Channeler Name Role Phone Sabrina Cooper Primary Care Provider Gray Judith Unavailable [phone] Mechelle Clement Unavailable [phone] Shakeel Henry Unavailable [phone] Allergies No Known Allergies Results Component Value Reference Range Flag Notes Comprehensive Metabolic Pane l Reviewed date:09/09/2024 11:26:09 AM Interpretation: Performing Lab:, [facility], [address] [place] [address] [place] Notes/Report: Reason for Exam Low testosterone Glucose 92 70-100 mg/dL N Random Glucose Reference Range is dependent on time and content of last meal. Glucose of more than 200 mg/dL in a nonstressed, ambulatory subject supports the diagnosis of Diabetes Mellitus. ADA recommended reference range Blood Urea Nitrogen 8 7-25 mg/dL N Creatinine0.940.70-1.30 mg/fJRGylrkb206907-985 mmol/LNPotassium4.43.5-5.1 mmol/L DNenodjif51165-622 mmol/LHCarbon Lrpkrvt60.121.0-31.0 mmol/LNCalcium9.48.6-10.3 mg/dLNTotal Protein6.56.4-8.9 g/dLNAlbumin Level4.03.5-5.7 g/dLNGlobulin2.5 Albumin/Globulin Ratio1.6Bilirubin,Total0.40.3-1.0 mg/dLNAspartate Amino Aocenuicxfu3477-25 U/LNAlanine Gvhljyhvaodzmfjs574-44 U/LNAlkaline Vddhmwnhazi96 34-104 U/LNEstimated GFR>60.0Anion Gap9.36.0-15.0 meq/LNPSA, Total and Free Reviewed date:09/09/2024 11:25:41 AM Interpretation: Performing Lab:, [facility], [address] Notes/Report: Reason for Exam Low testosteronePSA Total (Not a Screen)3.1700.000-4.000 ng/mLN Serial tumor marker results determined by assays using different manufacturers or methods may not be comparable. [facility] narrow gauge engineer and method: appsFreedom DXI, CHEMILUMINESCENT IMMUNOASSAY. Prostate Spec Ag, Free0.460PSA,FREE%14.5 Based on the work of Belem et al.SALVADOR. 27919):1542:47.1998 the percent free PSA may be used to determine the relative risk of prostate cancer in individual men.The percent probability of prostate cancer by patient age for men with non-suspicious SHIRA results and total PSa between 4 and 10 ng/ml is as follows: % Free PSA 50 - 64 yrs. 65 - 75 yrs. 0 - 10 56% 55% 10 - 15 24% 35% 15 - 20 17% 23% 20 - 25 10% 20% >25 5% 9% Complete Blood Count Auto Diff Reviewed date:09/09/2024 11:26:25 AM Interpretation: Performing Lab:, [facility], [address] [place] Notes/Report: Reason for Exam Low testosteroneWhite Blood Count7.24.1-10.5 10*3/uLNUncorrected WBC7.24.1-10.5 10*3/uLNRed Blood Count5.073.90-5.60 10*6/yQJJnvjaspsyw87.913.0- 17.0 g/kNKNqsnzfsvdq44.038.8-50.0 %NMean Corpuscular Nixqnx32.883.5-101 fLNMean Corpuscular Hirsixqaxa46.427.5-35.2 pgNMean Corpuscular HGB Conc33.132.5-35.6 g/dLNRed Cell Distribution Width14.012.0-14.8 %NPlatelet Uyzhs314044-911 10*3/uL NMean Platelet Volume8.26.6-10.1 fLNNeutrophils % (Auto)49.2. %Lymphocytes % (Auto)32.1. %Monocytes % (Auto)7.4. %Eosinophils % (Auto)10.6. %Basophils % (Auto)0.7. %NRBC%0.10-0.5 /100{WBC}NNeutrophils # (Auto)3.61.8-7.7 10*3/uLN Lymphocytes # (Auto)2.31.00-4.8 10*3/uLNMonocytes # (Auto)0.50.0-0.8 10*3/uLN Eosinophils # (Auto)0.80.0-0.45 10*3/uLHBasophils # (Auto)0.10.0-0.2 10*3/uLN Testosterone Free & Total Reviewed date:09/12/2024 07:04:13 AM Interpretation: Performing Lab:, [facility], [address] [place], [place] [address] [place] [place] Notes/Report: [id number]. old. honey Castillo.al. JCEM 2017,102;9528-8757. PMID: healthy nonobese males (BMI <30) between 19 and 39 years Adult male reference interval is based on a population of Reason for Exam Low testosteroneTestosterone,Free17.37.2-24.0 pg/mL Performed at: [facility] Lab[address] [id number] Vault Installer: Shakeel Laguna PhD, Phone: [phone] Performed at: [facility] Lab[address] [id number] Vault Installer: Aftab Hanley MD, Phone: [phone] Testosterone,455434-671 ng/dLH Reason For Referral No Information Medications Medication SIG (Take, Route, Frequency, Duration) Notes Start Date End Date Status Testosterone Cypionate 100 MG/ML Solution 0.5 mL Intramuscular once weekly starting dose 50mg weekly 08/09/2024 ActiveTestosterone Cypionate 200 MG/ML Solution0.25 mL Intramuscular every other week; Duration: 30 daysfor dose of 50mg every other week, please dispense 1 mL vial5ActivemethylPREDNISolone 4 MG Tablet1 tablet with food or milk Orally every 12 hrsNot-Taking/PRNCefdinir 300 MG Capsuleas directed Orally Not-Taking/PRNFlomax 0.4 MG Capsule1 capsule Orally Once a dayNot-Taking/PRN oxyBUTYnin Chloride 5 MG Tablet1 tablet Orally Once a dayNot-Taking/PRN Cephalexin 500 MG Capsule1 capsule Orally every 6 hrsNot-Taking/PRNZofran ODT 4 mg tablet1 tablet on the tongue allow to dissolve as neededNot-Taking/PRN Social History Tobacco Use: Social History Observation Description Date Details (start date - stop date) Never Smoker NA - NA Social History GeneralSocial InfoQuestionAnswerNotesTransition of Care:ER/UC/hospital since last office visit?NoSpecialist seen since last office visit?NoSubstance abuse/mental health issues of patient/familyPatient -DeniesAbility to understand healthcare/treatmentPatient:GoodSocial/Support Concerns:Patient:NoBehaviors affecting healthPoor/Risky Behaviors:Denies-Communication Barrier:Language Barrier?:NoDrug/Alcohol:Social InfoQuestionAnswerNotesAUDIT-C (Standard)Did you have a drink containing alcohol in the past year?HoDmkjhc9SnjtaizcojoorpDngnhkwq Tobacco Use:Social InfoQuestionAnswerNotesTobacco Control (Standard)Tobacco use: Nonsmoker Problems Problem Type SNOMED Code ICD Code Onset Dates Problem Status W/U Status Risk Notes Problem Mixed hyperlipidemia (891692823) Mixed hy perlipidemia (E78.2) ActiveconfirmedProblemKidney stone (46881396)Kidney stones (N20.0)Active confirmedProblemBody mass index 40+ - morbidly obese (164440611)BMI 40.0-44.9, adult (Z68.41)ActiveconfirmedProblemExcessive weight gain (725254469)Excessive weight gain (R63.5)ActiveconfirmedProblemHypertriglyceridemia (487714276) Hypertriglyceridemia (E78.1)ActiveconfirmedProblemLow testosterone (414899436) Low testosterone (R79.89)ActiveconfirmedProblemUreteral stent present (Z96.0) Activeconfirmed Vital Signs Heart Rate 90 /min 09/02/2024 Respiratory Rate20 /min09/02/20244041Ixdmcwdr55 %09/02/2024lood pressure diastolic 86 mm Hg09/02/20243132Luckwb3fd 9in in09/02/2024lood pressure ixuwqtqc775 mm Hg 09/02/20246388Tuuxct362.0 lbs09/02/2024BMI38.83 kg/m209/02/2024 Encounters Encounter Location Date Provider Diagnosis [facility] [address] [place] [address] 08/03/[address] [facility] [place] [address]/11/2024 [facility] [place] [address]/12/2024[facility] [place] [address]/[facility] [place] [address]/03/2025[facility] [place] [address]/[facility] [place] [address]/ [facility] [place] [address]/06/2024[facility] [place] [address]/[facility] [place] [address]/05/2024[facility] testosterone R79.89[facility] [place] [address]/Stanton VincentUreteral stent present Z96.0 and Acute pyelonephritis K85XbdlfvWhite [facility] [place] [address]/11/2024Kaitlyn zzzRizzoExcessive weight gain R63.5 and Low testosterone R79.89[facility] [place] [address]/09/2024Kaitlyn zzzRizzoExcessive weight gain R63.5 and Low testosterone R79.89 Assessments Encounter Date Diagnosis (ICD Code) Assessment Notes Treatment Notes Treatment Clinical Notes Section Notes 08/05/2024 Excessive weight gain (ICD-10 - R63.5) Patient with excess weight gain for years with no success with weight loss despite significant lifestyle modifications.He did start adipex but did not come back for follow up due to issue with kidneystones. At this time, based on BMI, he does qualify for phentermine. He does not have any contraindications at this time that would limit use of stimulant medication. Discussed risks and benefits of this medication with patient and answered all questions. At this time, he would like to start phentermine. Discussed guidelines that require him to be seen once a month for the first three months and successfully lose 5% of his body weight to continue on this medication. Discussed red flag symptoms that would warrant urgent evaluation. Patient voiced understanding and was in agreement with the plan.08/05/2024Low testosterone (ICD-10 - R79.89)Patient with hx of low testosterone on supplementation. Patient with recent lab showing low free but normal total. Previously discussed with preceptor that we typically treat based on total testosterone, but he insists his symptoms are worse without his supplementation. Discussed that insurance usually requires 2 low lab values so if we can get those labs pulled from [place], we may be able to get it covered. Also discussed having him call insurance to see what formulation they will cover. Patient voiced understanding and was in agreement with the plan. 09/29/2024Low testosterone (ICD-10 - R79.89)09/02/2024Excessive weight gain (ICD-10 - R63.5)Patient with excess weight gain for years with minimal success with weight loss despite significantlifestyle modifications. At this time, based on BMI, pt does qualify to continue phentermine. Pt does not have any contraindications at this time that would limit use of stimulant medication. Pt is aware that they need to be seen once a month for the first three months and successfully lose 5% of body weight to continue on this medication. He has so far lost 8 lbs. Discussed red flag symptoms that would warrant urgent evaluation. OARRS appropriate, will refill at this time. Patient voiced unders tanding and was in agreement with the plan.5Acute pyelonephritis (ICD- 10 - N10)05/30/2024Ureteral stent present (ICD-10 - Z96.0)I informed the patient to continue his antibiotic as prescribed for the next 30 days. I also informed the patient to continue drinking lots of clear fluids and water. His goal is to keep his urine the same color as the water he drinks. He notes that he is on oxybutynin, and this dries his mouth out. Ergo, he notes that he has been drinking plenty of water because of this. For his pain, we will give a Toradol shot today in the clinic. Toradol shot will be 60 mg IM given once. Patient voices understanding and agreement to the plan of care. Patient voices appreciation. Follow-up in 6 months. I instruct the patient to follow-up with us sooner should he not be able to get in with urology in timeor if his symptoms worsen. Patient verbalizes understanding.09/02/2024Low testosterone (ICD-10 - R79.89)Patient with hx of low testosterone on supplementation. He has history of low total testosterone aslow as 194 and low free on multiple draws as low as 2.1. He was previously on testosterone supplementation from previous provider but had been off for over a year with return of his symptoms. He doesstate that his current supplementation is helping significantly. Did not previously get PSA with screening labs so will obtain at this time in addition to CBC, testosterone level, CMP to ensure no abnormalities after completion of 4 week starting dose. Discussed frequent lab monitoring q3 months after initial draw as well to ensure no erythrocytosis or excess increase in testosterone levels. Of note, he was prescribed 50mg weekly for 4 weeks but pharmacy dispensed 10mL vial since they did not have 2mL available. Discussed this is only good for 28 days once used. He did want to know if he was injecting the correct amount as the syringes he was given are hard for him to read. Will schedule nurse visit in near future to ensure correct dosage is being administered to avoid under or overdosing. Discussed red flag symptoms that would warrant urgent evaluation. Patient voiced understanding andwas in agreement with the plan. Plan Of Treatment No Information Insurance Providers Payer Name Payer Address Payer Phone Subscriber Number Group Number Insured Name Patient Relationship to Insured Coverage Start Date Coverage End Date [employer] [address] [address] [place] [phone] [id number] [employer]MELITA INGRAM Self - patient is the insured 4 Medications Administered Medication Instructions Date of Administration Dosage Notes TORADOL 560 mg Medical (General) History Medical History History ICD Code kidney stones Surgical History Surgery Date(Month/Year) back fracture 2006 kidney stone 2x 04/12- 05/24 Hospitalization History Reason Date(Month/Year) see above
--- OUTSIDE RECORDS SUMMARY | 2025-03-20 06:23 | XMS_ITS | Clinical Summary ---
Author Organization [facility] Address [address] [place] [address] Care Team Providers Care End Packer Name Role Phone Tommie Miller MD Primary Care Provider [phone] Allergies No known active allergies Medications * This document contains information received from the source organization and may not represent a complete record from that organization. MedicationSigDispense QuantityRefillsLast FilledStart DateEnd DateStatus mometasone (NASONEX) 50 mcg/actuation nasal spray Use 2 Sprays in the nose twice daily.Active topiramate (TOPAMAX) 50 mg tablet Take 50 mg by mouth twice daily.Active DULoxetine (CYMBALTA) 60 mg capsule Take 60 mg by mouth once daily.Active ergocalciferol 50,000 unit capsule (VITAMIN D2, DRISDOL) Take 1 capsule by mouth one time a week. 12 capsule Active ergocalciferol 50,000 unit capsule (VITAMIN D2, DRISDOL) Take 1 capsule by mouth three times a week. 36 capsule 10/24/2019Active baclofen (LIORESAL) 10 mg tablet Take 0.5-1 tablets by mouth three times daily as needed. MAY CAUSE DROWSINESS. USE WITH CAUTION. 60 tablet Active Capsaicin 0.1 % crea Apply to affected area 4 times daily as needed. 60 g Active naltrexone (CPD) Comments for compounding pharmacy: Low Dose Naltrexone 2 mg capsule (do not use calcium filler) Take one capsule by mouth at 9:00 PM every night 30 capsule Active Active Problems ProblemNoted DateDiagnosed DateDietary surveillance and psuiwzkqrl66/26/2013 Morbid aqusuvr6510/23/2012rthrodesis fitxpd1802/18/2010Other acute postoperative pain08/26/2009Myalgia and myositis, iujlenshxdn30/29/2010Unspecified mechanical complication of internal orthopedic device, implant, and graft05/28/2009 Displacement of lumbar intervertebral disc without whbuduukrr16/29/2009cquired yiwvzttieqxycyhgb00/29/2009Sprain of neck04/27/2009Postlaminectomy syndrome, lumbar tjehmj8504/27/2009Sprain of lumbar vbfkrn6404/27/2009Sprain and strain of unspecified site of shoulder and upper arm04/27/2009Contusion of back(922.31) 04/27/2009Contusion of shoulder wnbrsw9504/27/2009 Social History Tobacco UseTypesPacks/DayYears UsedDateSmoking Tobacco: NeverSmokeless Tobacco: NeverAlcohol UseStandard Drinks/WeekCommentsYes0 (1 standard drink = 0.6 oz pure alcohol)Area Deprivation IndexAnswerDate RecordedNational Score (1-100), lower number is lower riskNot on file04/05/2020State Score (1-10), lower number is lower riskNot on file04/05/2020Data from: https://www.neighborhoodatlas.medicine.[facility].edu/. Last address used for calculationNot on file04/05/2020Sex and Gender InformationValueDate RecordedSex Assigned at BirthNot on fileLegal NxhAsgx64/02/2012 10:38 AM ESTGender Identity Not on fileSexual OrientationNot on file Last Filed Vital Signs Vital SignReadingTime TakenCommentsBlood Xcdhafco089/75010/24/2019 8:13 AM EDT Nfwam0933 8:13 AM GQJMqwviyrmomi12.6 ??C (97.8 ??F)10/24/2019 8:13 AM EDTRespiratory Cmwm932710/24/2019 8:13 AM EDTOxygen Qbwhqwguds87%08/28/2009 8:00 AM EDTInhaled Oxygen Concentration--Dezebi272.9 kg (260 lb)10/24/2019 8:13 AM TDSYowtsl043.3 cm (5' 9 )10/24/2019 8:13 AM EDTBody Mass Index38. 8:13 AM EDT Plan of Treatment Health MaintenanceDue DateLast DoneCommentsAnxiety Mzrzrjxdm29/26/1993Depression Uvciqqkeh46/26/1993HIV Detivgppp52/26/1993Hepatitis C Rxzniqfho97/26/1993 DTaP,Tdap,Td Vaccine (1 - Tdap)Lipid Dswgnndak17/26/2018 10/23/2012CT Urgzcxvaakig17/26/2020Cologuard (FIT-DNA)08/24/2019Colonoscopy 08/24/2019Colorectal Cancer Rcmrsnljn15/26/2020Diabetes Ymibuodhm03/26/2020 10/23/2012, 10/23/2012, 08/26/2009, Additional history existsFecal Occult Blood 08/24/20195675Slcbvjsianabb56/26/2020Pneumococcal Vaccine: 50+ (1 of 1 - PCV) 2024Shingrix Vaccine (1 of 2)5Covid-19 Vaccine (1 - season)2024Influenza Vaccine (#1)509/12/2018, 12/26/2017, 02/14/2017, Additional history existsHepatitis B StewxwgBnsxwhksb80/09/1999, 08/31/1998, 07/27/1998 Procedures Procedure NamePriorityDate/TimeAssociated DiagnosisCommentsCOMPREHENSIVE METABOLIC GYOTKUmesmte20/26/2013 2:14 PM EDT Pre-op evaluation LIPID PANEL, TFXQFRDUivlazb63/26/2013 2:14 PM EDT Pre-op evaluation from Last 3 Months or Most Recently Relevant to Health Maintenance Results * (ABNORMAL) LIPID PANEL BASIC (10/23/2012 2:14 PM EDT)ComponentValueRef Range Test MethodAnalysis TimePerformed AtPathologist HmrqomuelVdwmldfioeqv137(H)30 - 149 mg/dLCLEST. VINCENT HOSPITAL MAIN LABORATORYCholesterol, Pixpi634005 - 199 mg/dLCLEST. VINCENT HOSPITAL MAIN LABORATORYHDL Qpjwiratjec17(L)>45 mg/dLMER[facility] LABORATORYVLDL Ohqmcseudak28(H)6 - 40 mg/dLMER[facility] LABORATORYLDL Cholesterol, Usvqahmwbd2431 - 129 mg/dLMERCY [facility]ALTH [facility]OS[facility] LABORATORYFasting Fgbw70nwkMKYPMSCWMPARMA [facility]ITY [facility] LABORATORYTC:HDL Ratio5.27(H) 1.00 - 5.00[facility] LABORATORYLDL:HDL Ratio2.580.50 - 3.55 [facility] LABORATORYNon HDL Siklemshpju99075 - 159 mg/dLMERCY [facility]ALTH [facility] LABORATORYSpecimen (Source)Anatomical Location / Laterality Collection Method / VolumeCollection TimeReceived TimeBlood specimen (specimen)BLOOD SPECIMEN / Agkmvok8910/23/2012 2:14 PM EDT10/23/2012 2:19 PM EDT Narrative Authorizing ProviderResult TypeResult StatusPhilip R SchauerLABORATORYFinal ResultPerforming OrganizationAddressCity/State/ZIP CodePhone Number [facility] [address] [place] [address] * COMP METABOLIC PANEL (10/23/2012 2:14 PM EDT)ComponentValueRef RangeTest MethodAnalysis TimePerformed AtPathologist SignatureProtein, Total6.96.0 - 8.4 g/dLMER[facility] LABORATORYAlbumin4.23.5 - 5.0 g/dLMERCY [facility]ALTH [facility] LABORATORYCalcium9.68.5 - 10.5 mg/dLMERCY [facility]ALTH [facility] LAB[facility]ATORY Bilirubin, Total0.30.0 - 1.5 mg/dLMERCY [facility]ALTH [facility] LABORATORYAlkaline Qgsjylgluml9575 - 150 U/LCPARMA COMMUNITY GENERAL [facility]OSPITAL KSARMFYEMYBPO721 - 40 U/L [facility] CZVAKJDMDZKseslku6945 - 100 mg/dLMER[facility] DXZYMSJBPZLBN9591 - 25 mg/dLMER[facility] LABORATORYCreatinine0.920.70 - 1.40 mg/dLMER[facility]ALTH [facility] LRRDZTMYWAPdhpkp346611 - 146 mmol/LCPARKVIEW [facility] MAIN LABORATORYPotassium3.93.5 - 5.0 mmol/LCPARMA [facility]ITY [facility]AL [facility]PITAL NNFXGEAXATXfmhbjuk13565 - 110 mmol/LCPARMA COMMUNITY GENERAL [facility]ITAL IXCRGCUVIBHB85531 - 32 mmol/LCPARKVIEW [facility]ONTPELIER [facility]PITAL MAIN LABORATORYAnion Epm397 - 15 mmol/LCPARKVIEW [facility]PELI[facility]PITAL MAIN FOZLIKIDYFGKL901 - 50 U/LCPARMA [facility]ITY [facility]PITAL LABORATORYeGFR- >60[facility] LABORATORYeGFR-All Other Races>60. [facility] LABORATORYComment: eGFR (Estimated GFR) Units of measure: mL/min/1.73 meters squared eGFR is derived from the reexpressed MDRD Study equation using the following parameters: serum creatinine, age, gender and race. The creatinine assay has been calibrated to be traceable to IDMS. An eGFR <60 mL/min/1.73m2 for >3 months is consistent with chronic kidney disease. Refer to KDOQI guidelines for clinical interpretation. Specimen (Source)Anatomical Location / LateralityCollection Method / Volume Collection TimeReceived TimeBlood specimen (specimen)BLOOD SPECIMEN / Unknown 10/23/2012 2:14 PM EDT10/23/2012 2:19 PM EDT Narrative Authorizing ProviderResult TypeResult StatusPhilip R SchauerLABORATORYFinal ResultPerforming OrganizationAddressCity/State/ZIP CodePhone Number [facility] [address] [place] [address] from Last 3 Months or Most Recently Relevant to Health Maintenance Insurance * Guarantor: Sean Ingram AAccount TypeRelation to PatientDate of BirthPhone Billing AddressSelf [id number] 1975 [address] [place] [address] Care Teams Team MemberRelationshipSpecialtyStart DateEnd Date Tommie Miller MD [address] [place] [id number] PCP - GeneralFamily Medicine10/23/12
--- OUTSIDE RECORDS SUMMARY | 2025-03-20 06:23 | XMS_ITS | Clinical Summary ---
Author Organization [facility] Address [address], [address] [place] [address] Care Team Providers Care Legal Stenographer Name Role Phone No, Pcp Primary Care Provider Unavailabl e Allergies No known active allergies Medications MedicationSigDispense QuantityRefillsLast FilledStart DateEnd DateStatus acetaminophen (TYLENOL) 500 MG tablet Take 2 tablets by mouth 3 times daily as needed for PainActive ibuprofen (ADVIL;MOTRIN) 600 MG tablet Take 1 tablet by mouth every 8 hours as bqyvqr0902/01/2023ctive ondansetron (ZOFRAN-ODT) 4 MG disintegrating tablet TAKE 1 TABLET BY MOUTH EVERY 6 HOURS NEEDED FOR NAUSEA AND VQKOQHOQ50/06/2024 Active testosterone cypionate (DEPOTESTOTERONE CYPIONATE) 200 MG/ML injection Indications:Low testosteroneInject 1.5 mLs into the muscle every 14 days for 90 days. Max Daily Amount: 300 mg 9 mL 07/17/2023ctive metoclopramide (REGLAN) 10 MG tablet Indications:Nausea and vomiting, unspecified vomiting typeTake 1 tablet by mouth 3 times daily as needed (nausea and vomiting) 120 tablet ctive tamsulosin (FLOMAX) 0.4 MG capsule Indications:Urinary urgency,Decreased urine volumeTake 1 capsule by mouth daily 90 capsule ctive Active Problems ProblemNoted DateDiagnosed DateBilateral gmqricouixob69/26/2024Facet degeneration of lumbosacral ucfatv7107/24/2023Intractable chronic migraine without aura and without status vexdwlnzygk50/26/2024Lumbar postlaminectomy syndrome 11/01/2022 Overview (11/01/2022): Added automatically from request for surgery [id number] Gkuexcfoklhkrm38/10/2023Kidney stone10/06/2022Left ureteral stone10/06/2022 Obstructive sleep apnea03/14/20223961Ssfsicp08/15/9421Yrsrpssinb94/15/2022hronic bilateral low back pain without skqivmsk66/15/2022Gastroesophageal reflux qozjfln8503/14/2022Low ghxiuocjjkbb18/15/2022Left hnbveiwydoixatf23/15/2019Morbid hcpqdnp8610/23/2012Mechanical complication of internal orthopedic device, implant or graft05/28/2009cquired louhbmloxsqimrjto87/29/2009Contusion of back 04/27/2009Contusion of shoulder tcohtf2304/27/2009Herniation of lumbar intervertebral disc without xskizvbfwr70/29/2009Sprain of lumbar region 04/27/2009Sprain of neck04/27/2009 Resolved Problems ProblemNoted DateDiagnosed DateResolved DateColon cancer /05/2022 03/03/2022 Immunizations ImmunizationAdministration DatesNext DueCOVID-19, Inactive, MODERNA BLUE border, Primary or Immunocompromised, (age 12y+)05/26/2020,05/26/2020,04/28/2020, 04/28/2020COVID-19, Inactive, PFIZER PURPLE top, DILUTE for use, (age 12 y+) 03/21/2021Hepatitis B105/08/1998,08/31/1998,07/27/1998Influenza Virus Vaccine 02/19/2008Influenza Whole03/08/1999Influenza, FLUARIX, FLULAVAL, FLUZONE (age 6 mo+) and AFLURIA, (age 3 y+), Quadv PF, 0.5mL01/14/2021,02/03/2020,12/26/2017 Influenza, FLUCELVAX, (age 6 mo+), MDCK, Quadv PF, 0.5mL02/16/2022,01/06/2019, 02/14/2017Influenza, Intradermal, Preservative free01/20/2016TDaP, ADACEL (age 10y-64y), BOOSTRIX (age 10y+), IM, 0.5mL11/12/2020Td vaccine (adult)05/10/2004 Family History Medical HistoryRelationNameCommentsOtherFatherRobert GreenCOPDStrokeMaternal GrandmotherMartha SavidgeCancerNeg HxColon CancerNeg HxDiabetesNeg HxHeart AttackNeg HxHeart DiseaseNeg HxKidney DiseaseNeg HxRelationNameStatusComments FatherRobert GreenAliveMaternal GrandmotherMartha SavidgeMotherAlive Social History Tobacco UseTypesPacks/DayYears UsedDateSmoking Tobacco: NeverPassive Smoke Exposure: NeverSmokeless Tobacco: Never Tobacco Cessation:Counseling Given: Yes Alcohol UseStandard Drinks/WeekCommentsYes6 (1 standard drink = 0.6 oz pure alcohol)RAREAUDIT-CAnswerDate RecordedQ1: How often do you have a drink containing alcohol?Monthly or less10/06/2022Q2: How many drinks containing alcohol do you have on a typical day when you are drinking?1 or Q3: How often do you have six or more drinks on one occasion?Never10/06/2022Overall Financial Resource Strain (CARDIA)AnswerDate RecordedHow hard is it for you to pay for the very basics like food, housing, medical care, and heating?Not hard at all07/17/2023HQ-2AnswerDate RecordedPHQ-9 Total Gmrll566Exercise Vital SignAnswerDate RecordedOn average, how many days per week do you engage in moderate to strenuous exercise (like a brisk walk)?5 days12/21/2021n average, how many minutes do you engage in exercise at this level?10 min12/21/2021Hunger Vital SignAnswerDate RecordedWithin the past 12 months, you worried that your food would run out before you got the money to buymore.Never true07/17/2023 Within the past 12 months, the food you bought just didn't last and you didn't have money to get more.Never true07/17/2023RAPARE - TransportationAnswerDate RecordedLack of Transportation (Medical)Not on file07/17/2023In the past 12 months, has lack of transportation kept you from meetings, work, or from getting things needed for daily living?No07/17/2023Housing Stability Vital SignAnswer Date RecordedUnable to Pay for Housing in the Last YearNot on file07/17/2023 Number of Places Lived in the Last YearNot on file07/17/2023In the last 12 months, was there a time when you did not have a steady place to sleep or slept in ashelter (including now)?No07/17/2023Food InsecurityAnswerDate RecordedWithin the past 12 months, you worried that your food would run out before you got the money to buymore.Within the past 12 months, the food you bought just didn't last and you didn't have money to get more.Interpersonal Safety Domain Source: IP Abuse ScreeningAnswerDate RecordedRead-Only, Retired: Physical HafmlFzymqx92/02/2023Read-Only, Retired: Verbal MomnpHmqbpw07/02/2023 Read-Only, Retired: Emotional okpudEjzcmk67/02/2023Read-Only, Retired: Financial EaucfUpclax52/02/2023Read-Only, Retired: Sexual xuntkQmebfl18/02/2023Sex and Gender InformationValueDate RecordedSex Assigned at BirthNot on fileLegal Sex Male06/09/2012 9:08 PM ESTGender IdentityNot on fileSexual OrientationNot on file Last Filed Vital Signs Vital SignReadingTime TakenCommentsBlood Yrhplcym297/7803 9:22 AM EDT Datjt03094/26/2024 9:22 AM SKIYiyjsbryuby50.7 ??C (98 ??F)03/31/2023 3:58 AM EST Respiratory Vpzs691706/01/2022 5:45 AM ESTOxygen Mfnchyliov98%07/24/2023 9:22 AM EDTInhaled Oxygen Concentration--Llfoiw812.6 kg (257 lb)07/24/2023 9:22 AM EDT Btdtdo575.3 cm (5' 9 )07/24/2023 9:22 AM EDTBody Mass Index37.95007/24/2023 9:22 AM EDT Plan of Treatment Health MaintenanceDue DateLast DoneCommentsHIV xmlgxr7308/23/1989Hepatitis C giogrf3608/23/19929753Yxoyty41/26/2015FIT/FOBT: Average risk08/24/2019Fecal-DNA (Cologuard): Average risk08/24/2019Sigmoidoscopy/CT xpbptnjanmfs89/26/2020 Depression Zggyofpbsm89/19/9580124Pneumococcal 50+ years Vaccine (1 of 1 - PCV)2024Shingles vaccine (1 of 2)2024Flu vaccine (#1)11/28/2024 02/16/2022, 01/14/2021, 02/03/2020, Additional history existsCOVID-19 Vaccine ( - season), 05/26/2020, 05/26/2020, Additional history viobnkIjtfdaqjcej37/05/202710/08/2021, 02/01/2022, 2Colorectal Cancer Zzdztk4902/01/2027DTaP/Tdap/Td vaccine (2 - Td or Tdap)11/12/2030 11/12/2020, 05/10/2004Hepatitis B fqudbnoHqwfnbhzl20/09/1999, 08/31/1998, 07/27/1998Diabetes ixerpfXzobsvtiwgco41/15/2022Depression ScreenDiscontinued 07/17/2023Hepatitis A vaccineAged OutNo longer eligible based on patient's age to complete this topicHib vaccineAged OutNo longer eligible based on patient's age to complete this topicMeningococcal (ACWY) vaccineAged OutNo longer eligible based on patient's age to complete this topicMeningococcal B vaccineAged OutNo longer eligible based on patient's age to complete this topicPolio vaccineAged OutNo longer eligible based on patient's age to complete this topic Medical Devices ImplantedTypeAreaManufacturerDevice IdentifierShelf Expiration DateModel / Serial / LotStimDescription:stimulator right lower back with panel to upper back Stent Uret 6fr L26cm Polymer Blend Ph Free Coat Gradual Tapr - [id number] Implanted:Qty: 1 on 10/06/2022 [facility]: [employer]-[id number] / / [id number] Procedures Procedure NamePriorityDate/TimeAssociated DiagnosisCommentsPOCT GLYCOSYLATED HEMOGLOBIN (HGB A1C)Yxokvhw7703/14/2022 8:30 AM EST Screening for diabetes mellitus (DM) SCANNED COLONOSCOPY PQKQBY6602/01/2022from Last 3 Months or Most Recently Relevant to Health Maintenance Results * POCT glycosylated hemoglobin (Hb A1C) (03/14/2022 8:30 AM EST)ComponentValue Ref RangeTest MethodAnalysis TimePerformed AtPathologist SignatureHemoglobin A1C5.2%Specimen (Source)Anatomical Location / LateralityCollection Method / VolumeCollection TimeReceived TimeBloodBLOOD SPECIMEN / Ytgmplz5603/14/2022 8:30 AM EST Narrative Authorizing ProviderResult TypeResult StatusValerie Shaquille DOPOINT OF CARE TEST ORDERABLESFinal Result * SCANNED COLONOSCOPY REPORT (02/01/2022)Specimen (Source)Anatomical Location / LateralityCollection Method / VolumeCollection TimeReceived Time02/01/2022 Narrative Authorizing ProviderResult TypeResult StatusAbdul T Razack MDPROCEDURE/MINOR SURGICAL ORDERABLESFinal Result from Last 3 Months or Most Recently Relevant to Health Maintenance Insurance * Guarantor: Sean Eastman AAccount TypeRelation to PatientDate of BirthPhone Billing AddressPersonal/UjudxrMrfx65/26/1976 [facility] [place] [address] * Guarantor: [id number] ORTHOPA[facility]IC [facility] CHUAccount TypeRelation to Patient Date of BirthPhoneBilling AddressWorkers SqfuYoqntjze90/26/1976 [facility] [place] [address] Advance Directives TypeDate RecordedPatient RepresentativeExplanationACP-Advance Pgepcthee14/6/2022 10:10 AM * Full Code (Latest Code Status on File) Date ActivatedDate InactivatedComments11/09/2022 12:57 PM11/09/2022 5:03 PM * Full Code Date ActivatedDate InactivatedComments10/23/2022 6:27 AM10/23/2022 1:02 PM * Full Code Date ActivatedDate InactivatedComments10/06/2022 5:37 AM10/09/2022 4:17 PM * Full Code Date ActivatedDate InactivatedComments07/07/2014 5:10 PM07/08/2014 5:01 PM Care Teams Team MemberRelationshipSpecialtyStart DateEnd Date No, Pcp PCP - General09/13/23
--- OUTSIDE RECORDS SUMMARY | 2025-03-20 06:23 | XMS_ITS | Patient Health Record ---
Author Organization [facility] Address [address] [place] [address] Care Team Providers Care Cash Applications Associate Name Role Phone Self, Referral Unavailable Unavailable Reason For Referral No Information Plan Of Treatment No Information Insurance Providers Payer Name Payer Address Payer Phone Subscriber Number Group Number Insured Name Patient Relationship to Insured Coverage Start Date Coverage End Date [facility] [address] [address] [place] [id number] Self - patient is the insured
[2025-03-20 06:41] LABS: Hematocrit 42.6 % (42.0-54.0); Hemoglobin 13.7 g/dL (14.0-18.0); Immature Granulocytes Abs Auto 0.02 10^3/uL (0.00-0.03); Immature Granulocytes Pct Auto 0.2 % (0.0-0.5); Lymphocytes Absolute Auto 2.1 10^3/uL (1.2-3.8); Mean Corpuscular HGB Conc 32.2 g/dL (29.9-35.2); Mean Corpuscular Hemoglobin 29.5 pg (25.9-34.0); Mean Corpuscular Volume 91.8 fL (80.0-94.0); Platelet Count 251 10^3/uL (150-450); Red Blood Count 4.64 10^6/uL (4.70-6.10); White Blood Count 8.1 10^3/uL (4.0-11.0)
[2025-03-20 06:51] LABS: Alanine Aminotransferase 28 U/L (16-63); Albumin Globulin Ratio 1.1; Albumin Level 3.6 g/dL (3.4-5.0); Alkaline Phosphatase 75 U/L (46-116); Anion Gap 11.6; Aspartate Amino Transferase 19 U/L (15-37); Blood Urea Nitrogen 21.0 mg/dL (7.0-18.0); Calcium 8.8 mg/dL (8.5-10.1); Carbon Dioxide 25.3 mmol/L (21.0-32.0); Chloride 108 mmol/L (98-107); Estimated GFR (African America >60 (>=60 mL/min/1.73m^2); Estimated GFR (Non-African Ame >60 (>=60 mL/min/1.73m^2); Globulin 3.3 g/dL; Glucose 102 mg/dL (74-106); Potassium 3.9 mmol/L (3.5-5.1); Sodium 141 mmol/L (136-145); Total Protein 6.9 g/dL (6.4-8.2)
[2025-03-20] MEDS: KETOROLAC TROMETHAMINE 30 MG/ML VIAL IVP (07:15)
[2025-03-20 07:31] VITALS: BP 114/63; PULSE 73; O2SAT 96
== END 2025-03-20 07:32 | disposition home or self-care (01) ==
PROVIDERS: Emergency Provider Emergency Medicine; PCP Nurse Practitioner Family
DX: S30.22XA Contusion of scrotum and testes, initial encounter (principal); S80.12XA Contusion of left lower leg, initial encounter; Y04.2XXA Assault by strike against or bumped into by another person, initial encounter
CPT/HCPCS: 36415; 76870; 80053; 81001; 85025; 93976; 96374; 96375; 99284; J1885; J2270; J2405